=== PATIENT | female | born 1965 | race African-American/Black ===

== ENCOUNTER 2017-06-04 11:02 | Inpatient (IN) | payer MEDICARE, MEDICAID ==
[~2017-06-04] VITALS: Ht 160 cm; Wt 63.5 kg
[2017-06-04] MEDS ORDERED: HYDROmorphone 1mg/ml Carpuject IVP ONE ×2 (11:45→12:45)
[2017-06-04] MEDS ORDERED: LORazepam Inj 2mg/ml 1ml IV ONE (11:45)
[2017-06-04] MEDS ORDERED: Sodium Chloride 500ML 500 ML IV ONE (11:45)
[2017-06-04] MEDS ORDERED: DiphenhydrAMINE 50mg/ml Inj IVP ONE (11:45)
[2017-06-04] MEDS ORDERED: DILAUDID1 MG/1 ML PO (11:58)
[2017-06-04] MEDS ORDERED: TOPROL XL50 MG ORAL (11:58)
[2017-06-04] MEDS ORDERED: KLONOPIN1 MG ORAL (11:58)
[2017-06-04] MEDS ORDERED: BACLOFEN20 MG ORAL (11:58)
[2017-06-04] MEDS ORDERED: XARELTO10 MG ORAL (11:58)
[2017-06-04] MEDS ORDERED: NORVASC10 MG ORAL (11:58)
[2017-06-04] MEDS ORDERED: OMEPRAZOLE20 M2 ORAL (11:58)
[2017-06-04] MEDS ORDERED: GABAPENTIN300 MG ORAL (11:58)
[2017-06-04] MEDS ORDERED: REQUIP1 MG ORAL (11:58)
[2017-06-04] MEDS ORDERED: HYOSCYAMINE0.375 M1 ORAL (12:00)
[2017-06-04] MEDS ORDERED: KADIAN30 MG PO (12:00)
[2017-06-04] MEDS ORDERED: LOSARTAN POTASS50 MG ORAL (12:00)
[2017-06-04 12:09] VITALS: BP 129/65
[2017-06-04 13:13] VITALS: BP 137/76
--- NOTE | 2017-06-04 14:29 | Emergency Room Report ---
History of Present Illness General Chief Complaint: General Complaint Source: Patient, Medical Record Present Illness HPI 52-year-old female presents to ED for evaluation. Patient states she's having cramping pain to the right side of her body. 10 out of 10, nonradiating. No aggravating relieving factors. Denies chest pain or shortness of breath. Patient states she has history of muscle cramps after having cauda equina syndrome. Patient states she has medications at home to help but they are not working at this time. No other aggravating relieving factors. Denies any other associated symptom Allergies: Coded Allergies: METHADONE (Verified Allergy, Unknown, 06/04/17) MORPHINE (Verified Allergy, Unknown, 06/04/17) PREGABALIN (Verified Allergy, Unknown, 06/04/17) Patient History Past Medical History: none Past Surgical History: none Pertinent Family History: none Social History: Denies: smoking, alcohol use, drug use Last Menstrual Period: 1997 Now: No Immunizations: UTD Reviewed Nursing Documentation: PMH: Agreed, PSxH: Agreed Nursing Documentation-PMH Past Medical History: No History, Except For Review of Systems All Other Systems: negative except mentioned in HPI Physical Exam Vital Signs Date Time Temp Pulse Resp B/P (MAP) Pulse Ox O2 Delivery O2 Flow Rate FiO2 06/04/17 11:13 98.1 76 18 134/75 98 Room Air Sp02 EP Interpretation: reviewed, normal General Appearance: alert, GCS 15, mild distress Head: normocephalic Eyes: bilateral eye normal inspection, bilateral eye PERRL ENT: hearing grossly normal, normal pharynx, no angioedema, normal voice Neck: full range of motion, supple/symm/no masses Respiratory: chest non-tender, lungs clear, normal breath sounds, speaking full sentences Cardiovascular #1: regular rate, rhythm, no edema Gastrointestinal: normal inspection Rectal: deferred Genitourinary: no CVA tenderness Musculoskeletal: normal inspection Neurologic: alert, oriented x3, responsive, motor strength/tone normal, sensory intact, speech normal Psychiatric: anxious Skin: normal inspection Lymphatic: normal inspection Medical Decision Making Diagnostic Impression: Primary Impression: Muscle cramping Additional Impression: Intractable pain ER Course Hospital Course 52-year-old female presents to ED with muscle cramping pain. History of cauda equina Differential diagnoses include: dehydration, rhabdo, chronic pain Clinical course Patient placed on stretcher. telemetry monitor. After initial history and physical I ordered IVFs, pain meds Despite multiple rounds of analgesia patient continues to have pain and spasms. EKG - NSR, no acute ischemic changes interpreted by me Patient has port for IV Access. Labs drawn and pending Patient given pain medications but still continues to have pain and unable to walk Case discussed with and he agreed to accept the patient to his service for further care and support I feel this is a highly complex case requiring extensive working including EKG/ Rhythm strip, Xray/CT/US, Blood/urine lab work, repeat exams while in ED, and administration of strong opiates/narcotics for pain control, admission to hospital or close patient follow up. Diagnosis -mucle cramping, intractable pain Patient admitted to floor in serious condition EKG Diagnostic Results Rate: normal Rhythm: NSR ST Segments: no acute changes ASA given to the pt in ED: No Rhythm Strip Diag. Results EP Interpretation: yes Rhythm: NSR, no PVC's, no ectopy Last Vital Signs Date Time Temp Pulse Resp B/P (MAP) Pulse Ox O2 Delivery O2 Flow Rate FiO2 06/04/17 13:13 93 26 137/76 94 Room Air 06/04/17 11:13 98.1 Status: unchanged Disposition: ADMITTED INPATIENT Condition: Serious Referrals: NON PHYSICIAN (PCP) SCOTT GOMEZ M.D. Jun 04, 2017 14:29
[2017-06-04 15:33] LABS: BASOPHILS % (AUTO) 1.1 % (0.0-2.0); HEMATOCRIT 33.6 % (37.0-47.0); HEMOGLOBIN 10.7 G/DL (12.0-16.0); LYMPHOCYTES % (AUTO) 35.3 % (20.0-45.0); MEAN CORPUSCULAR VOLUME 93 FL (80-99); MONOCYTES % (AUTO) 6.9 % (1.0-10.0); NEUTROPHILS % (AUTO) 53.8 % (45.0-75.0); PLATELET COUNT 248 K/UL (150-450); RED BLOOD COUNT 3.61 M/UL (4.20-5.40); RED CELL DISTRIBUTION WIDTH 13.5 % (11.6-14.8)
[2017-06-04 15:53] LABS: ANION GAP 7 mmol/L (5-15); BLOOD UREA NITROGEN 20 mg/dL (7-18); CARBON DIOXIDE 28 MMOL/L (21-32); CHLORIDE 110 MMOL/L (98-107); CREATININE 0.6 MG/DL (0.55-1.30); POTASSIUM 3.7 MMOL/L (3.5-5.1); SODIUM 145 MMOL/L (136-145)
[2017-06-04 15:55] VITALS: BP 111/59
[2017-06-04 16:08] LABS: ALANINE AMINOTRANSFERASE 15 U/L (12-78); ALBUMIN 3.3 G/DL (3.4-5.0); ALBUMIN/GLOBULIN RATIO 0.9 (1.0-2.7); ALKALINE PHOSPHATASE 138 U/L (46-116); ASPARTATE AMINO TRANSFERASE 11 U/L (15-37); BILIRUBIN,TOTAL 0.1 MG/DL (0.2-1.0); CKMB 1.5 NG/ML (0.0-3.6); CREATINE KINASE 138 U/L (26-308)
[2017-06-04 16:30] VITALS: BP 131/83
[2017-06-04] MEDS ORDERED: Miralax 17gm pkt ORAL PRN (16:30)
[2017-06-04] MEDS ORDERED: Zolpidem 5mg tab ORAL PRN (16:30)
[2017-06-04] MEDS ORDERED: Mylanta II UD 30ml ORAL PRN (16:30)
--- NOTE | 2017-06-04 16:39 | Diagnostic Imaging Report ---
Indication: Chest pain Technique: One view of the chest Comparison: none Findings: : No focal lesions are clear. The heart size is normal. There is a right chest port catheter. There are spinal stimulator wires noted. Impression: No acute process
[2017-06-04] MEDS: DiphenhydrAMINE 50mg/ml Inj IVP PRN (19:33)
[2017-06-04] MEDS: HYDROmorphone 1mg/ml Carpuject IVP PRN (19:35)
[2017-06-04 19:53] VITALS: BP 117/82
--- NOTE | 2017-06-04 21:45 | History and Physical Report ---
DATE OF ADMISSION: 06/04/2017 TIME SEEN: 4 p.m. ATTENDING PHYSICIAN: Ernesto Magallon D.O. CONSULTANTS: 1. Adam Tom M.D. 2. Atilio Mckeon M.D. 3. Armani Singh M.D. CHIEF COMPLAINT: Severe muscle cramps and pain. BRIEF HISTORY: This is a 52-year-old female, who lives at home with history of muscle cramps and hypertension. The patient presents with muscle cramps and increasing intractable pain. The patient came to [facility], diagnosed with the above, and being admitted to the medical floor for further treatment. Currently, slightly anxious in bed, oriented x3, no acute distress. PAST MEDICAL HISTORY: Hypertension and muscle cramps. PAST SURGICAL HISTORY: Small bowel surgery, hysterectomy, right eye removal, and spinal fusion. MEDICATIONS: Soma, Dilaudid, Benadryl, IV fluid, and Ativan. ALLERGIES: Lyrica, methadone, and pregabalin. SOCIAL HISTORY: Positive smoking. Positive alcohol. No intravenous drug abuse. PHYSICAL EXAMINATION: GENERAL: Slightly anxious in bed, oriented x3, no acute distress. VITAL SIGNS: Temperature is 98 degrees, pulse 67, respirations 26, and blood pressure 111/59. CARDIOVASCULAR: No murmur. LUNGS: Distant and clear. ABDOMEN: Bowel sound positive. Nontender. Nondistended. EXTREMITIES: No cyanosis, clubbing, or edema. NEUROLOGIC: The patient moves all extremities slightly weak. LABORATORY DATA: Labs at this time show hemoglobin 10.7, otherwise CBC is normal. BMP shows chloride 110, BUN 20, and glucose 110. AST 11 and alkaline phosphatase 138. Albumin 3.3. ASSESSMENT: 1. Muscle cramps. 2. Intractable pain. 3. Anemia. 4. Hypoalbumin. 5. Hypertension. PLAN: OT/PT. Dietary followup. Blood pressure, pain control. Resume home medications. Dr. Tom, Dr. Mckeon, and Dr. Singh to consult. Ernesto Magallon D.O. DR: DARIN JOB#: [id number] CC:
[2017-06-04] MEDS: Dyna-Hex 2% Top Sol 2oz TOPIC SCH (21:46)
[2017-06-04] MEDS: LORazepam Inj 2mg/ml 1ml IV PRN (21:47)
--- NOTE | 2017-06-04 22:49 | Consultation ---
History of Present Illness General Date patient seen: Jun 05, 2017 Chief Complaint: General Complaint Reason for Consultation: inpatient management Present Illness HPI 52-year-old female with hx of anxiety and chronic haq, spams, presents to ED for evaluation of cramping pain to the right side of her body. 10 out of 10, nonradiating. No aggravating relieving factors. Denies chest pain or shortness of breath. Patient states she has history of muscle cramps after having cauda equina syndrome. She is admitted for intractable pain Allergies: Coded Allergies: METHADONE (Verified Allergy, Unknown, 06/04/17) MORPHINE (Verified Allergy, Unknown, 06/04/17) PREGABALIN (Verified Allergy, Unknown, 06/04/17) Medication History Scheduled Amlodipine Besylate (Norvasc), 10 MG ORAL DAILY, (Reported) Baclofen* (Lioresal*), 20 MG ORAL THREE TIMES A DAY, (Reported) Clonazepam* (Klonopin*), 1 MG ORAL Q6H, (Reported) Gabapentin* (Gabapentin*), 300 MG ORAL THREE TIMES A DAY, (Reported) Hyoscyamine* (Levsinex*), 0.125 MG ORAL EVERY 12 HOURS, (Reported) Losartan Potassium* (Losartan Potassium*), 50 MG ORAL DAILY, (Reported) Metoprolol Succinate* (Toprol Xl*), 50 MG ORAL DAILY, (Reported) Omeprazole (Omeprazole), 20 MG ORAL DAILY, (Reported) Rivaroxaban (Xarelto*), 20 MG ORAL DAILY, (Reported) Ropinirole Hcl* (Requip*), 1 MG ORAL THREE TIMES A DAY, (Reported) Miscellaneous Medications Hydromorphone Hcl (Dilaudid), 4 MG PO, (Reported) Morphine Sulfate (Rosanne), 30 MG PO, (Reported) Patient History Healthcare decision maker Resuscitation status Full Code Advanced Directive on File Review of Systems All Other Systems: negative except mentioned in HPI Physical Exam General Appearance: WD/WN Lines, tubes and drains: peripheral, central line HEENT: normocephalic, anicteric Neck: non-tender, normal alignment Respiratory/Chest: chest wall non-tender, lungs clear Breasts: no masses Cardiovascular/Chest: normal peripheral pulses Abdomen: normal bowel sounds, non tender Genitourinary/Rectal: normal genital exam Last 24 Hour Vital Signs Date Time Temp Pulse Resp B/P (MAP) Pulse Ox O2 Delivery O2 Flow Rate FiO2 06/04/17 19:53 98.1 78 20 117/82 99 Room Air 06/04/17 16:30 98.9 83 19 131/83 97 Room Air 06/04/17 16:20 98.1 67 9 111/59 98 Room Air 06/04/17 15:55 67 9 111/59 98 Room Air 06/04/17 13:13 93 26 137/76 94 Room Air 06/04/17 12:09 72 8 129/65 98 Room Air 06/04/17 11:13 98.1 76 18 134/75 98 Room Air Laboratory Tests Test 06/04/17 15:06 White Blood Count 6.0 K/UL (4.8-10.8) Red Blood Count 3.61 M/UL (4.20-5.40) L Hemoglobin 10.7 G/DL (12.0-16.0) L Hematocrit 33.6 % (37.0-47.0) L Mean Corpuscular Volume 93 FL (80-99) Mean Corpuscular Hemoglobin 29.5 PG (27.0-31.0) Mean Corpuscular Hemoglobin Concent 31.7 G/DL (32.0-36.0) L Red Cell Distribution Width 13.5 % (11.6-14.8) Platelet Count 248 K/UL (150-450) Mean Platelet Volume 5.5 FL (6.5-10.1) L Neutrophils (%) (Auto) 53.8 % (45.0-75.0) Lymphocytes (%) (Auto) 35.3 % (20.0-45.0) Monocytes (%) (Auto) 6.9 % (1.0-10.0) Eosinophils (%) (Auto) 3.0 % (0.0-3.0) Basophils (%) (Auto) 1.1 % (0.0-2.0) Sodium Level 145 MMOL/L (136-145) Potassium Level 3.7 MMOL/L (3.5-5.1) Chloride Level 110 MMOL/L (98-107) H Carbon Dioxide Level 28 MMOL/L (21-32) Anion Gap 7 mmol/L (5-15) Blood Urea Nitrogen 20 mg/dL (7-18) H Creatinine 0.6 MG/DL (0.55-1.30) Estimat Glomerular Filtration Rate > 60 mL/min (>60) Glucose Level 110 MG/DL (74-106) H Calcium Level 9.0 MG/DL (8.5-10.1) Total Bilirubin 0.1 MG/DL (0.2-1.0) L Aspartate Amino Transf (AST/SGOT) 11 U/L (15-37) L Alanine Aminotransferase (ALT/SGPT) 15 U/L (12-78) Alkaline Phosphatase 138 U/L (46-116) H Total Creatine Kinase 138 U/L (26-308) Creatine Kinase MB 1.5 NG/ML (0.0-3.6) Creatine Kinase MB Relative Index 1.0 Total Protein 6.8 G/DL (6.4-8.2) Albumin 3.3 G/DL (3.4-5.0) L Globulin 3.5 g/dL Albumin/Globulin Ratio 0.9 (1.0-2.7) L Height (Feet): 5 Height (Inches): 3.00 Weight (Pounds): 140 Medications Current Medications Medications (Trade) Dose Ordered Sig/Danni Route PRN Reason Start Time Stop Time Status Last Admin Dose Admin Acetaminophen (Tylenol) 650 mg Q4H PRN ORAL fever 06/04/17 16:30 07/04/17 16:29 Acetaminophen (Tylenol) 650 mg Q4H PRN ORAL Mild Pain (Pain Scale 1-3) 06/04/17 19:00 07/04/17 18:59 Al Hydroxide/Mg Hydroxide (Mylanta II) 30 ml Q6H PRN ORAL dyspepsia 06/04/17 16:30 07/04/17 16:29 Amlodipine Besylate (Norvasc) 10 mg DAILY ORAL 06/05/17 09:00 07/05/17 08:59 Baclofen (Lioresal) 20 mg THREE TIMES A DAY ORAL 06/04/17 18:00 07/04/17 17:59 06/04/17 18:37 Chlorhexidine Gluconate (Margot-Hex 2%) 1 applic Q24H TOPIC 06/04/17 20:00 07/04/17 19:59 06/04/17 21:46 Clonazepam (KlonoPIN) 1 mg Q6H ORAL 06/04/17 18:00 06/11/17 17:59 06/04/17 18:35 Dextrose (Dextrose 50%) STAT PRN IV Hypoglycemia 06/04/17 16:30 07/04/17 16:29 Diphenhydramine HCl (Benadryl) 25 mg Q6H PRN IVP Itching 06/04/17 19:00 07/04/17 18:59 06/04/17 19:33 Gabapentin (Neurontin) 300 mg THREE TIMES A DAY ORAL 06/04/17 18:00 07/04/17 17:59 06/04/17 18:35 Hydromorphone HCl (Dilaudid) 1 mg Q4H PRN IVP Severe Pain (Pain Scale 7-10) 06/04/17 19:00 06/11/17 18:59 06/04/17 19:35 Lorazepam (Ativan 2mg/ml 1ml) 0.5 mg Q4H PRN IV For Anxiety 06/04/17 16:30 06/11/17 16:29 06/04/17 21:47 Losartan Potassium (Cozaar) 50 mg DAILY ORAL 06/05/17 09:00 07/05/17 08:59 Metoprolol Succinate (Toprol XL) 50 mg DAILY ORAL 06/05/17 09:00 07/05/17 08:59 Ondansetron HCl (Zofran) 4 mg Q6H PRN IVP Nausea & Vomiting 06/04/17 16:30 07/04/17 16:29 Polyethylene Glycol (Miralax) 17 gm HSPRN PRN ORAL Constipation 06/04/17 16:30 07/04/17 16:29 Rivaroxaban (Xarelto) 20 mg DAILY ORAL 06/05/17 09:00 07/05/17 08:59 Ropinirole HCl (Requip) 1 mg THREE TIMES A DAY ORAL 06/04/17 18:00 07/04/17 17:59 06/04/17 18:35 Zolpidem Tartrate (Ambien) 5 mg HSPRN PRN ORAL Insomnia 06/04/17 16:30 06/11/17 16:29 Assessment/Plan Problem List: (1) Intractable pain ICD Codes: R52 - Pain, unspecified SNOMED: 83028790 (2) Muscle cramping ICD Codes: R25.2 - Cramp and spasm SNOMED: 40025760 Assessment/Plan neuro and psych evaluation analgesics symptomatic treatment ELLIOTT NICOLAS Jun 04, 2017 22:49
[2017-06-04 23:43] VITALS: BP 136/96
[2017-06-05] MEDS: DiphenhydrAMINE 50mg/ml Inj IVP PRN ×4 (01:20→20:51)
[2017-06-05] MEDS: HYDROmorphone 1mg/ml Carpuject IVP PRN ×5 (01:21→20:53)
[2017-06-05 03:39] VITALS: BP 133/83
[2017-06-05] MEDS: LORazepam Inj 2mg/ml 1ml IV PRN ×2 (05:00→23:21)
[2017-06-05 07:03] LABS: BASOPHILS % (AUTO) 1.2 % (0.0-2.0); EOSINOPHILS % (AUTO) 2.9 % (0.0-3.0); HEMATOCRIT 34.2 % (37.0-47.0); HEMOGLOBIN 10.9 G/DL (12.0-16.0); LYMPHOCYTES % (AUTO) 43.3 % (20.0-45.0); MEAN CORPUSCULAR VOLUME 93 FL (80-99); MONOCYTES % (AUTO) 6.3 % (1.0-10.0); NEUTROPHILS % (AUTO) 46.3 % (45.0-75.0); PLATELET COUNT 279 K/UL (150-450); RED BLOOD COUNT 3.66 M/UL (4.20-5.40); RED CELL DISTRIBUTION WIDTH 13.4 % (11.6-14.8); WHITE BLOOD COUNT 4.9 K/UL (4.8-10.8)
[2017-06-05 07:35] LABS: ALANINE AMINOTRANSFERASE 15 U/L (12-78); ALBUMIN 3.3 G/DL (3.4-5.0); ALBUMIN/GLOBULIN RATIO 0.9 (1.0-2.7); ALKALINE PHOSPHATASE 137 U/L (46-116); ANION GAP 7 mmol/L (5-15); ASPARTATE AMINO TRANSFERASE 10 U/L (15-37); BILIRUBIN,TOTAL 0.2 MG/DL (0.2-1.0); BLOOD UREA NITROGEN 15 mg/dL (7-18); CALCIUM 9.1 MG/DL (8.5-10.1); CARBON DIOXIDE 29 MMOL/L (21-32); CHLORIDE 108 MMOL/L (98-107); CHOLESTEROL 189 MG/DL (< 200); CREATININE 0.7 MG/DL (0.55-1.30); HDL CHOLESTEROL 100 MG/DL (40-60); POTASSIUM 3.7 MMOL/L (3.5-5.1); SODIUM 144 MMOL/L (136-145); TRIGLYCERIDES 81 MG/DL (30-150)
[2017-06-05 08:22] VITALS: BP 138/72
[2017-06-05] MEDS ORDERED: Ketorolac 30mg Inj IV SCH (09:00)
[2017-06-05] MEDS: Losartan 50mg tab ORAL SCH (09:05)
[2017-06-05] MEDS: Metoprolol Succinate XL 50mg tab ORAL SCH (09:06)
[2017-06-05] MEDS: Xarelto 10mg tab ORAL SCH (09:06)
--- NOTE | 2017-06-05 09:14 | Pulmonology Progress Note ---
Assessment/Plan Problems: (1) Intractable pain (2) Muscle cramping Assessment/Plan pt is allergic to all pain meds expect for Dilaudid and that to be taken with Benadry. awaiting psych and pain consult Subjective ROS Limited/Unobtainable: No Constitutional: Reports: no symptoms HEENT: Repors: no symptoms Respiratory: Reports: no symptoms Allergies: Coded Allergies: METHADONE (Verified Allergy, Unknown, 06/04/17) MORPHINE (Verified Allergy, Unknown, 06/04/17) PREGABALIN (Verified Allergy, Unknown, 06/04/17) Objective Last 24 Hour Vital Signs Date Time Temp Pulse Resp B/P (MAP) Pulse Ox O2 Delivery O2 Flow Rate FiO2 06/05/17 09:06 73 138/72 06/05/17 09:06 73 138/72 06/05/17 09:05 138/72 06/05/17 08:22 98.1 73 19 138/72 99 06/05/17 03:39 97.7 54 20 133/83 100 Room Air 06/04/17 23:43 97.7 65 20 136/96 100 Room Air 06/04/17 19:53 98.1 78 20 117/82 99 Room Air 06/04/17 19:45 97.7 06/04/17 16:30 98.9 83 19 131/83 97 Room Air 06/04/17 16:20 98.1 67 9 111/59 98 Room Air 06/04/17 15:55 67 9 111/59 98 Room Air 06/04/17 13:13 93 26 137/76 94 Room Air 06/04/17 12:09 72 8 129/65 98 Room Air 06/04/17 11:13 98.1 76 18 134/75 98 Room Air Intake and Output 06/04/17 06/05/17 19:00 07:00 Intake Total 0 ml Balance 0 ml Intake Oral 0 ml # Voids 1 General Appearance: WD/WN HEENT: normocephalic, anicteric Respiratory/Chest: chest wall non-tender, lungs clear Breasts: no masses Cardiovascular: normal peripheral pulses Abdomen: normal bowel sounds, no organomegaly Genitourinary: normal external genitalia Extremities: no clubbing 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, no motor/sensory deficits Laboratory Tests 06/04/17 15:06: White Blood Count 6.0, Red Blood Count 3.61L, Hemoglobin 10.7L, Hematocrit 33.6L , Mean Corpuscular Volume 93, Mean Corpuscular Hemoglobin 29.5, Mean Corpuscular Hemoglobin Concent 31.7L, Red Cell Distribution Width 13.5, Platelet Count 248, Mean Platelet Volume 5.5L, Neutrophils (%) (Auto) 53.8, Lymphocytes (%) (Auto) 35.3, Monocytes (%) (Auto) 6.9, Eosinophils (%) (Auto) 3.0, Basophils (%) (Auto) 1.1, Sodium Level 145, Potassium Level 3.7, Chloride Level 110H, Carbon Dioxide Level 28, Anion Gap 7, Blood Urea Nitrogen 20H, Creatinine 0.6, Estimat Glomerular Filtration Rate > 60, Glucose Level 110H, Calcium Level 9.0, Total Bilirubin 0.1L, Aspartate Amino Transf (AST/SGOT) 11L, Alanine Aminotransferase (ALT/SGPT) 15, Alkaline Phosphatase 138H, Total Creatine Kinase 138, Creatine Kinase MB 1.5, Creatine Kinase MB Relative Index 1.0, Total Protein 6.8, Albumin 3.3L, Globulin 3.5, Albumin/Globulin Ratio 0.9L 06/05/17 05:00: White Blood Count 4.9, Red Blood Count 3.66L, Hemoglobin 10.9L, Hematocrit 34.2L , Mean Corpuscular Volume 93, Mean Corpuscular Hemoglobin 29.7, Mean Corpuscular Hemoglobin Concent 31.8L, Red Cell Distribution Width 13.4, Platelet Count 279, Mean Platelet Volume 5.8L, Neutrophils (%) (Auto) 46.3, Lymphocytes (%) (Auto) 43.3, Monocytes (%) (Auto) 6.3, Eosinophils (%) (Auto) 2.9, Basophils (%) (Auto) 1.2, Sodium Level 144, Potassium Level 3.7, Chloride Level 108H, Carbon Dioxide Level 29, Anion Gap 7, Blood Urea Nitrogen 15, Creatinine 0.7, Estimat Glomerular Filtration Rate > 60, Glucose Level 99, Calcium Level 9.1, Total Bilirubin 0.2, Aspartate Amino Transf (AST/SGOT) 10L, Alanine Aminotransferase (ALT/SGPT) 15, Alkaline Phosphatase 137H, Total Protein 6.8, Albumin 3.3L, Globulin 3.5, Albumin/Globulin Ratio 0.9L, Triglycerides Level 81, Cholesterol Level 189, LDL Cholesterol 77, HDL Cholesterol 100H, Cholesterol/HDL Ratio 1.9L, Thyroid Stimulating Hormone (TSH) 2.183 Current Medications Medications (Trade) Dose Ordered Sig/Danni Route PRN Reason Start Time Stop Time Status Last Admin Dose Admin Acetaminophen (Tylenol) 650 mg Q4H PRN ORAL fever 06/04/17 16:30 07/04/17 16:29 Acetaminophen (Tylenol) 650 mg Q4H PRN ORAL Mild Pain (Pain Scale 1-3) 06/04/17 19:00 07/04/17 18:59 Al Hydroxide/Mg Hydroxide (Mylanta II) 30 ml Q6H PRN ORAL dyspepsia 06/04/17 16:30 07/04/17 16:29 Amlodipine Besylate (Norvasc) 10 mg DAILY ORAL 06/05/17 09:00 07/05/17 08:59 06/05/17 09:06 Baclofen (Lioresal) 20 mg THREE TIMES A DAY ORAL 06/04/17 18:00 07/04/17 17:59 06/04/17 18:37 Chlorhexidine Gluconate (Margot-Hex 2%) 1 applic Q24H TOPIC 06/04/17 20:00 07/04/17 19:59 06/04/17 21:46 Clonazepam (KlonoPIN) 1 mg Q6H ORAL 06/04/17 18:00 06/11/17 17:59 06/04/17 18:35 Dextrose (Dextrose 50%) STAT PRN IV Hypoglycemia 06/04/17 16:30 07/04/17 16:29 Diphenhydramine HCl (Benadryl) 25 mg EVERY 4 HOURS PRN IVP Itching 06/05/17 10:00 07/04/17 09:59 Gabapentin (Neurontin) 300 mg THREE TIMES A DAY ORAL 06/04/17 18:00 07/04/17 17:59 06/05/17 09:05 Hydromorphone HCl (Dilaudid) 1 mg Q4H PRN IVP Severe Pain (Pain Scale 7-10) 06/04/17 19:00 06/11/17 18:59 06/05/17 05:27 Ketorolac Tromethamine (Toradol 30mg) 15 mg Q6H PRN IV Moderate Pain (Pain Scale 4-6) 06/05/17 10:00 06/10/17 09:59 Lorazepam (Ativan 2mg/ml 1ml) 0.5 mg Q4H PRN IV For Anxiety 06/04/17 16:30 06/11/17 16:29 06/05/17 05:00 Losartan Potassium (Cozaar) 50 mg DAILY ORAL 06/05/17 09:00 07/05/17 08:59 06/05/17 09:05 Metoprolol Succinate (Toprol XL) 50 mg DAILY ORAL 06/05/17 09:00 07/05/17 08:59 06/05/17 09:06 Ondansetron HCl (Zofran) 4 mg Q6H PRN IVP Nausea & Vomiting 06/04/17 16:30 07/04/17 16:29 Polyethylene Glycol (Miralax) 17 gm HSPRN PRN ORAL Constipation 06/04/17 16:30 07/04/17 16:29 Rivaroxaban (Xarelto) 20 mg DAILY ORAL 06/05/17 09:00 07/05/17 08:59 06/05/17 09:06 Ropinirole HCl (Requip) 1 mg THREE TIMES A DAY ORAL 06/04/17 18:00 07/04/17 17:59 06/05/17 09:05 Zolpidem Tartrate (Ambien) 5 mg HSPRN PRN ORAL Insomnia 06/04/17 16:30 06/11/17 16:29 ELLIOTT NICOLAS Jun 05, 2017 09:14
--- NOTE | 2017-06-05 09:25 | General Progress Note ---
Assessment/Plan Problem List: (1) HTN (hypertension) ICD Codes: I10 - Essential (primary) hypertension SNOMED: 49833118 (2) Anemia ICD Codes: D64.9 - Anemia, unspecified SNOMED: 866051308 (3) Hypoalbuminemia ICD Codes: E88.09 - Other disorders of plasma-protein metabolism, not elsewhere classified SNOMED: 351574997 (4) Muscle cramping ICD Codes: R25.2 - Cramp and spasm SNOMED: 25109079 (5) Intractable pain ICD Codes: R52 - Pain, unspecified SNOMED: 89638022 Status: unchanged Assessment/Plan ot pt diet pain control neuro pain f/u cbc bmp am Subjective Constitutional: Reports: weakness Allergies: Coded Allergies: METHADONE (Verified Allergy, Unknown, 06/04/17) MORPHINE (Verified Allergy, Unknown, 06/04/17) PREGABALIN (Verified Allergy, Unknown, 06/04/17) All Systems: reviewed and negative except above Subjective c/o of leg cramps Objective Last 24 Hour Vital Signs Date Time Temp Pulse Resp B/P (MAP) Pulse Ox O2 Delivery O2 Flow Rate FiO2 06/05/17 09:06 73 138/72 06/05/17 09:06 73 138/72 06/05/17 09:05 138/72 06/05/17 08:22 98.1 73 19 138/72 99 06/05/17 03:39 97.7 54 20 133/83 100 Room Air 06/04/17 23:43 97.7 65 20 136/96 100 Room Air 06/04/17 19:53 98.1 78 20 117/82 99 Room Air 06/04/17 19:45 97.7 06/04/17 16:30 98.9 83 19 131/83 97 Room Air 06/04/17 16:20 98.1 67 9 111/59 98 Room Air 06/04/17 15:55 67 9 111/59 98 Room Air 06/04/17 13:13 93 26 137/76 94 Room Air 06/04/17 12:09 72 8 129/65 98 Room Air 06/04/17 11:13 98.1 76 18 134/75 98 Room Air Intake and Output 06/04/17 06/05/17 19:00 07:00 Intake Total 0 ml Balance 0 ml Intake Oral 0 ml # Voids 1 Laboratory Tests 06/04/17 15:06: White Blood Count 6.0, Red Blood Count 3.61L, Hemoglobin 10.7L, Hematocrit 33.6L , Mean Corpuscular Volume 93, Mean Corpuscular Hemoglobin 29.5, Mean Corpuscular Hemoglobin Concent 31.7L, Red Cell Distribution Width 13.5, Platelet Count 248, Mean Platelet Volume 5.5L, Neutrophils (%) (Auto) 53.8, Lymphocytes (%) (Auto) 35.3, Monocytes (%) (Auto) 6.9, Eosinophils (%) (Auto) 3.0, Basophils (%) (Auto) 1.1, Sodium Level 145, Potassium Level 3.7, Chloride Level 110H, Carbon Dioxide Level 28, Anion Gap 7, Blood Urea Nitrogen 20H, Creatinine 0.6, Estimat Glomerular Filtration Rate > 60, Glucose Level 110H, Calcium Level 9.0, Total Bilirubin 0.1L, Aspartate Amino Transf (AST/SGOT) 11L, Alanine Aminotransferase (ALT/SGPT) 15, Alkaline Phosphatase 138H, Total Creatine Kinase 138, Creatine Kinase MB 1.5, Creatine Kinase MB Relative Index 1.0, Total Protein 6.8, Albumin 3.3L, Globulin 3.5, Albumin/Globulin Ratio 0.9L 06/05/17 05:00: White Blood Count 4.9, Red Blood Count 3.66L, Hemoglobin 10.9L, Hematocrit 34.2L , Mean Corpuscular Volume 93, Mean Corpuscular Hemoglobin 29.7, Mean Corpuscular Hemoglobin Concent 31.8L, Red Cell Distribution Width 13.4, Platelet Count 279, Mean Platelet Volume 5.8L, Neutrophils (%) (Auto) 46.3, Lymphocytes (%) (Auto) 43.3, Monocytes (%) (Auto) 6.3, Eosinophils (%) (Auto) 2.9, Basophils (%) (Auto) 1.2, Sodium Level 144, Potassium Level 3.7, Chloride Level 108H, Carbon Dioxide Level 29, Anion Gap 7, Blood Urea Nitrogen 15, Creatinine 0.7, Estimat Glomerular Filtration Rate > 60, Glucose Level 99, Calcium Level 9.1, Total Bilirubin 0.2, Aspartate Amino Transf (AST/SGOT) 10L, Alanine Aminotransferase (ALT/SGPT) 15, Alkaline Phosphatase 137H, Total Protein 6.8, Albumin 3.3L, Globulin 3.5, Albumin/Globulin Ratio 0.9L, Triglycerides Level 81, Cholesterol Level 189, LDL Cholesterol 77, HDL Cholesterol 100H, Cholesterol/HDL Ratio 1.9L, Thyroid Stimulating Hormone (TSH) 2.183 Height (Feet): 5 Height (Inches): 3.00 Weight (Pounds): 140 General Appearance: alert EENT: normal ENT inspection Neck: normal alignment Cardiovascular: normal peripheral pulses, normal rate, regular rhythm Respiratory/Chest: chest wall non-tender, lungs clear, normal breath sounds Abdomen: normal bowel sounds, non tender, soft Extremities: normal inspection Edema: no edema noted Arm (L), no edema noted Arm (R), no edema noted Leg (L), no edema noted Leg (R), no edema noted Pedal (L), no edema noted Pedal (R), no edema noted Generalized Neurologic: responsive, motor weakness Skin: normal pigmentation, warm/dry JUAN FRANCISCO OCAMPO Jun 05, 2017 09:25
[2017-06-05] MEDS ORDERED: DiphenhydrAMINE 50mg/ml Inj IVP PRN (10:00)
[2017-06-05] MEDS ORDERED: Ketorolac 30mg Inj IV PRN (10:00)
[2017-06-05 12:00] VITALS: BP 124/83
[2017-06-05 16:25] VITALS: BP 109/77
[2017-06-05 20:00] VITALS: BP 112/62
[2017-06-06] VITALS: BP 125/65
[2017-06-06] MEDS: Dyna-Hex 2% Top Sol 2oz TOPIC SCH ×2 (00:03→20:00)
[2017-06-06] MEDS: DiphenhydrAMINE 50mg/ml Inj IVP PRN ×6 (00:04→20:13)
[2017-06-06] MEDS: HYDROmorphone 1mg/ml Carpuject IVP PRN ×6 (00:04→20:13)
--- NOTE | 2017-06-06 00:32 | Consultation ---
DATE OF CONSULTATION: 06/05/2017 NEUROLOGICAL CONSULTATION CONSULTING PHYSICIAN: Atilio Mckeon M.D. REQUESTING PHYSICIAN: Ernesto Magallon D.O. HISTORY OF PRESENT ILLNESS: This is a 52-year-old lady seen in neurological consultation to evaluate intractable pain and spasms. The patient was brought to emergency room complaining of cramping pain in the right side of the body, predominantly from her right foot up to the right hip, which in her opinion was 10/10, nonradiating. There were no associated symptoms. No chest pain. No shortness of breath. Her vital signs on admission were stable. She was afebrile Her imaging studies included chest x-ray, no acute process noted. Lab work included CBC study with mild anemia, hemoglobin 10.7, hematocrit 33.6. Chemistry panel with BUN of 20. Normal lipid panel and TSH. Elevated alkaline phosphatase 138. Since admission to present, there was no further changes in her condition and neurology consult was requested. The patient informed me that about 10 years ago, she developed severe low back pain radiating to right lower extremity. She was treated for a couple of years with Vicodin and Soma. She underwent L4-L5 fusion surgery in 2009. During surgery, apparently "small piece of bone" was detached and so surgeon had to reopen and remove piece of bone from the surgical site. The patient was subsequently diagnosed with lumbar spine arachnoiditis. She continued to have severe cramping pain, this was addressed with presence of cauda equina syndrome. The patient also noticed right footdrop with some weakness in left foot, weakness in the right lower extremity affecting her ambulation. Due to continued severe pain in the right lower extremity, she continued to use Vicodin, Soma, subsequently placed on morphine, gabapentin, and Klonopin. 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 She remained on anticoagulation since then. The patient was tried on different antidepressants including Zoloft and Cymbalta, felt no improvement. Lumbar spine stimulator was placed which removed significant amount of pain and unexpected right lower extremity weakness during ambulation. In the last few years, she continued to have severe muscle spasm affecting right leg, right hip, and right lower back. CURRENT MEDICATIONS: Treatment prior to admission included baclofen 20 mg t.i.d., which in the patient's opinion produced no improvement. She is on gabapentin 300 mg t.i.d., the patient commented that higher dose was causing decrease in the vision in her left eye. She is on Dilaudid 4 mg p.o., morphine sulfate 30 mg, omeprazole, ropinirole 1 mg t.i.d. Her Soma was replaced recently although the patient noticed that Soma actually helped better than baclofen. Vicodin, uses from 3-5 tablets per day. PAST MEDICAL HISTORY: Hypertension, DVT with right eye removal, history of "lumbar spine arachnoiditis" and cauda equina syndrome. MEDICATIONS: This was treated with amlodipine, Xarelto, metoprolol, losartan. ALLERGIES: Methadone, pregabalin, poorly tolerated Zoloft. FAMILY HISTORY: Noncontributory. SOCIAL HISTORY: She is . Her was present during this examination. Chief complaint, she complains of exacerbation of severe spasmodic pain, right calf, right hip, right lower back, numbness in her right foot, weakness in her right lower extremity, numbness in her left foot dorsiflexion, intermittent tremors, "shaking" of upper torso and upper extremity usually 2-3 hours following the use of medications. This was noted initially about a year ago but progressing now. Difficulty ambulation due to buckling of right lower extremity. Generalized aches and pains including upper back and mid back. PHYSICAL EXAMINATION: GENERAL: This is a well-developed and well-nourished female, not in acute distress, but quite anxious and tense concerning with exacerbation of pain. HEENT: Head normocephalic. No evidence of trauma except right eye prosthesis. MUSCULOSKELETAL: Remarkable for diffuse tenderness on palpation in the cervical and midthoracic region. Significant tenderness in the lumbar region, but predominantly right paraspinal area. There is significant postoperative scarring. Lumbar spine with a spinal stimulator in place. There is tenderness on palpation in both hips, both calves, but predominantly on the right. Peripheral pulses 1+, symmetric. MENTAL STATUS: She is fully alert and oriented x3 with no evidence of aphasia or apraxia. Cognitive function normal. Emotionally labile. CRANIAL NERVE II: On the left, 3 mm, responding to light and accommodation. Extraocular movement full range. CRANIAL NERVE V: Normal corneal responses. CRANIAL NERVE VII: No facial asymmetry. CRANIAL NERVE VIII: Normal hearing. CRANIAL NERVES IX THROUGH XII: Within normal limits. MOTOR EXAMINATION: Revealed resting and action tremor of the right upper extremity. There is weakness 3/5, right lower extremity with right footdrop. There is weakness in the left foot dorsiflexion, 3/5. Strength in left lower extremity 5-/5. Normal strength 5/5 in both upper extremities. Normal muscle tone. Deep tendon reflexes 1+ both biceps, triceps, brachioradialis. Absent both knee and ankle jerks. Plantar responses flexor. SENSORY EXAMINATION: Decreased response to pin stimulation below knees bilaterally. GAIT: Not tested but reported able to ambulate with assistance, however, it is limping to the right. IMPRESSION: 1. Chronic pain syndrome, opiate dependent. 2. Intermittent generalized tremor, probably drug-induced toxicity. 3. Right upper extremity tremor resembling essential tremor. 4. Status post lumbar spine fusion with postoperative arachnoiditis/cauda equina syndrome with bilateral paraparesis, but predominantly right lower extremity. 5. Hypertension. 6. Anxiety and depression. RECOMMENDATION: 1. Hold all unessential to reduce toxic effects of treatment. We will take off Requip, restart on Soma 350 mg t.i.d., reduce baclofen down to 10 mg t.i.d. (eventually to be discontinued). 2. Start on Lexapro 10 mg daily. 3. Opiate management as per pain team. Thank you for allowing me to see this interesting patient in neurological consultation. Atilio Mckeon M.D. DR: Zeenat JOB#: [id number] CC:
[2017-06-06 04:00] VITALS: BP 119/67
[2017-06-06 07:25] LABS: BASOPHILS % (AUTO) 1.4 % (0.0-2.0); EOSINOPHILS % (AUTO) 3.5 % (0.0-3.0); HEMATOCRIT 33.7 % (37.0-47.0); HEMOGLOBIN 10.5 G/DL (12.0-16.0); LYMPHOCYTES % (AUTO) 26.1 % (20.0-45.0); MEAN CORPUSCULAR VOLUME 94 FL (80-99); MONOCYTES % (AUTO) 8.3 % (1.0-10.0); NEUTROPHILS % (AUTO) 60.7 % (45.0-75.0); PLATELET COUNT 263 K/UL (150-450); RED BLOOD COUNT 3.58 M/UL (4.20-5.40); RED CELL DISTRIBUTION WIDTH 13.7 % (11.6-14.8); WHITE BLOOD COUNT 6.2 K/UL (4.8-10.8)
[2017-06-06 07:31] LABS: ANION GAP 8 mmol/L (5-15); BLOOD UREA NITROGEN 21 mg/dL (7-18); CALCIUM 9.1 MG/DL (8.5-10.1); CARBON DIOXIDE 29 MMOL/L (21-32); CHLORIDE 110 MMOL/L (98-107); CREATININE 0.7 MG/DL (0.55-1.30); POTASSIUM 3.8 MMOL/L (3.5-5.1); SODIUM 146 MMOL/L (136-145)
--- NOTE | 2017-06-06 07:50 | General Progress Note ---
Assessment/Plan Problem List: (1) HTN (hypertension) ICD Codes: I10 - Essential (primary) hypertension SNOMED: 55156948 (2) Anemia ICD Codes: D64.9 - Anemia, unspecified SNOMED: 283315998 (3) Hypoalbuminemia ICD Codes: E88.09 - Other disorders of plasma-protein metabolism, not elsewhere classified SNOMED: 666231754 (4) Muscle cramping ICD Codes: R25.2 - Cramp and spasm SNOMED: 73334669 (5) Intractable pain ICD Codes: R52 - Pain, unspecified SNOMED: 26618477 Status: unchanged Assessment/Plan ot pt diet pain control neuro pain f/u cbc bmp am Subjective Constitutional: Reports: weakness Allergies: Coded Allergies: METHADONE (Verified Allergy, Unknown, 06/04/17) MORPHINE (Verified Allergy, Unknown, 06/04/17) PREGABALIN (Verified Allergy, Unknown, 06/04/17) All Systems: reviewed and negative except above Subjective c/o of leg cramps Objective Last 24 Hour Vital Signs Date Time Temp Pulse Resp B/P (MAP) Pulse Ox O2 Delivery O2 Flow Rate FiO2 06/06/17 04:00 97.7 65 20 119/67 96 Room Air 06/06/17 00:00 97.9 63 18 125/65 92 Room Air 06/05/17 20:00 97.5 61 20 112/62 98 Room Air 06/05/17 16:25 98.1 77 20 109/77 97 06/05/17 12:00 98.3 78 20 124/83 97 06/05/17 09:06 73 138/72 06/05/17 09:06 73 138/72 06/05/17 09:05 138/72 06/05/17 08:22 98.1 73 19 138/72 99 Intake and Output 06/05/17 06/06/17 19:00 07:00 Intake Total 820 ml Balance 820 ml Intake Oral 820 ml Laboratory Tests 06/06/17 06:00: White Blood Count 6.2, Red Blood Count 3.58L, Hemoglobin 10.5L, Hematocrit 33.7L , Mean Corpuscular Volume 94, Mean Corpuscular Hemoglobin 29.4, Mean Corpuscular Hemoglobin Concent 31.2L, Red Cell Distribution Width 13.7, Platelet Count 263, Mean Platelet Volume 5.2L, Neutrophils (%) (Auto) 60.7, Lymphocytes (%) (Auto) 26.1, Monocytes (%) (Auto) 8.3, Eosinophils (%) (Auto) 3.5H, Basophils (%) (Auto) 1.4, Sodium Level 146H, Potassium Level 3.8, Chloride Level 110H, Carbon Dioxide Level 29, Anion Gap 8, Blood Urea Nitrogen 21H, Creatinine 0.7, Estimat Glomerular Filtration Rate > 60, Glucose Level 106 , Calcium Level 9.1 Height (Feet): 5 Height (Inches): 3.00 Weight (Pounds): 140 General Appearance: alert EENT: normal ENT inspection Neck: normal alignment Cardiovascular: normal peripheral pulses, normal rate, regular rhythm Respiratory/Chest: chest wall non-tender, lungs clear, normal breath sounds Abdomen: normal bowel sounds, non tender, soft Extremities: normal inspection Edema: no edema noted Arm (L), no edema noted Arm (R), no edema noted Leg (L), no edema noted Leg (R), no edema noted Pedal (L), no edema noted Pedal (R), no edema noted Generalized Neurologic: responsive, motor weakness Skin: normal pigmentation, warm/dry JUAN FRANCISCO OCAMPO Jun 06, 2017 07:50
[2017-06-06 08:15] VITALS: BP 160/87
[2017-06-06] MEDS: Metoprolol Succinate XL 50mg tab ORAL SCH (10:31)
[2017-06-06] MEDS: Losartan 50mg tab ORAL SCH (10:31)
[2017-06-06] MEDS: Xarelto 10mg tab ORAL SCH (10:32)
--- NOTE | 2017-06-06 11:45 | Pulmonology Progress Note ---
Assessment/Plan Problems: (1) Intractable pain (2) Muscle cramping Assessment/Plan pt is allergic to all pain meds expect for Dilaudid and that to be taken with [place]. awaiting psych and pain consult Subjective Allergies: Coded Allergies: METHADONE (Verified Allergy, Unknown, 06/04/17) MORPHINE (Verified Allergy, Unknown, 06/04/17) PREGABALIN (Verified Allergy, Unknown, 06/04/17) Objective Last 24 Hour Vital Signs Date Time Temp Pulse Resp B/P (MAP) Pulse Ox O2 Delivery O2 Flow Rate FiO2 06/06/17 10:31 80 160/87 06/06/17 10:31 160/87 06/06/17 10:31 80 160/87 06/06/17 08:15 97.9 80 18 160/87 96 Room Air 06/06/17 04:00 97.7 65 20 119/67 96 Room Air 06/06/17 00:00 97.9 63 18 125/65 92 Room Air 06/05/17 20:00 97.5 61 20 112/62 98 Room Air 06/05/17 16:25 98.1 77 20 109/77 97 06/05/17 12:00 98.3 78 20 124/83 97 Intake and Output 06/05/17 06/06/17 19:00 07:00 Intake Total 820 ml Balance 820 ml Intake Oral 820 ml Laboratory Tests 06/06/17 06:00: White Blood Count 6.2, Red Blood Count 3.58L, Hemoglobin 10.5L, Hematocrit 33.7L , Mean Corpuscular Volume 94, Mean Corpuscular Hemoglobin 29.4, Mean Corpuscular Hemoglobin Concent 31.2L, Red Cell Distribution Width 13.7, Platelet Count 263, Mean Platelet Volume 5.2L, Neutrophils (%) (Auto) 60.7, Lymphocytes (%) (Auto) 26.1, Monocytes (%) (Auto) 8.3, Eosinophils (%) (Auto) 3.5H, Basophils (%) (Auto) 1.4, Sodium Level 146H, Potassium Level 3.8, Chloride Level 110H, Carbon Dioxide Level 29, Anion Gap 8, Blood Urea Nitrogen 21H, Creatinine 0.7, Estimat Glomerular Filtration Rate > 60, Glucose Level 106 , Calcium Level 9.1 Current Medications Medications (Trade) Dose Ordered Sig/Danni Route PRN Reason Start Time Stop Time Status Last Admin Dose Admin Acetaminophen (Tylenol) 650 mg Q4H PRN ORAL fever 06/04/17 16:30 07/04/17 16:29 Acetaminophen (Tylenol) 650 mg Q4H PRN ORAL Mild Pain (Pain Scale 1-3) 06/04/17 19:00 07/04/17 18:59 Al Hydroxide/Mg Hydroxide (Mylanta II) 30 ml Q6H PRN ORAL dyspepsia 06/04/17 16:30 07/04/17 16:29 Amlodipine Besylate (Norvasc) 10 mg DAILY ORAL 06/05/17 09:00 07/05/17 08:59 06/06/17 10:31 Baclofen (Lioresal) 10 mg THREE TIMES A DAY ORAL 06/05/17 13:30 07/05/17 13:29 06/06/17 10:32 Carisoprodol (Soma) 350 mg THREE TIMES A DAY ORAL 06/05/17 13:30 07/05/17 13:29 06/06/17 10:31 Chlorhexidine Gluconate (Margot-Hex 2%) 1 applic Q24H TOPIC 06/04/17 20:00 07/04/17 19:59 06/06/17 00:03 Clonazepam (KlonoPIN) 1 mg Q6H ORAL 06/04/17 18:00 06/11/17 17:59 06/06/17 06:13 Dextrose (Dextrose 50%) STAT PRN IV Hypoglycemia 06/04/17 16:30 07/04/17 16:29 Diphenhydramine HCl (Benadryl) 25 mg Q3H PRN IVP Itching 06/05/17 15:15 07/05/17 15:14 06/06/17 10:32 Escitalopram Oxalate (Lexapro) 10 mg DAILY ORAL 06/05/17 13:30 07/05/17 13:29 06/06/17 10:32 Gabapentin (Neurontin) 300 mg THREE TIMES A DAY ORAL 06/04/17 18:00 07/04/17 17:59 06/06/17 10:31 Hydromorphone HCl (Dilaudid) 1 mg Q3H PRN IVP PAIN 4-10 06/05/17 15:15 06/12/17 15:14 06/06/17 10:30 Ketorolac Tromethamine (Toradol 30mg) 15 mg Q6H PRN IV Moderate Pain (Pain Scale 4-6) 06/05/17 10:00 06/10/17 09:59 Lorazepam (Ativan 2mg/ml 1ml) 0.5 mg Q4H PRN IV For Anxiety 06/04/17 16:30 06/11/17 16:29 06/05/17 23:21 Losartan Potassium (Cozaar) 50 mg DAILY ORAL 06/05/17 09:00 07/05/17 08:59 06/06/17 10:31 Metoprolol Succinate (Toprol XL) 50 mg DAILY ORAL 06/05/17 09:00 07/05/17 08:59 06/06/17 10:31 Ondansetron HCl (Zofran) 4 mg Q6H PRN IVP Nausea & Vomiting 06/04/17 16:30 07/04/17 16:29 Polyethylene Glycol (Miralax) 17 gm HSPRN PRN ORAL Constipation 06/04/17 16:30 07/04/17 16:29 Rivaroxaban (Xarelto) 20 mg DAILY ORAL 06/05/17 09:00 07/05/17 08:59 06/06/17 10:32 Zolpidem Tartrate (Ambien) 5 mg HSPRN PRN ORAL Insomnia 06/04/17 16:30 06/11/17 16:29 ELLIOTT NICOLAS Jun 06, 2017 11:45
[2017-06-06 12:10] VITALS: BP 144/85
--- NOTE | 2017-06-06 14:29 | Consultation ---
History of Present Illness General Date patient seen: Jun 06, 2017 Present Illness Allergies: Coded Allergies: METHADONE (Verified Allergy, Unknown, 06/04/17) MORPHINE (Verified Allergy, Unknown, 06/04/17) PREGABALIN (Verified Allergy, Unknown, 06/04/17) Medication History Scheduled Amlodipine Besylate (Norvasc), 10 MG ORAL DAILY, (Reported) Baclofen* (Lioresal*), 20 MG ORAL THREE TIMES A DAY, (Reported) Clonazepam* (Klonopin*), 1 MG ORAL Q6H, (Reported) Gabapentin* (Gabapentin*), 300 MG ORAL THREE TIMES A DAY, (Reported) Hyoscyamine* (Levsinex*), 0.125 MG ORAL EVERY 12 HOURS, (Reported) Losartan Potassium* (Losartan Potassium*), 50 MG ORAL DAILY, (Reported) Metoprolol Succinate* (Toprol Xl*), 50 MG ORAL DAILY, (Reported) Omeprazole (Omeprazole), 20 MG ORAL DAILY, (Reported) Rivaroxaban (Xarelto*), 20 MG ORAL DAILY, (Reported) Ropinirole Hcl* (Requip*), 1 MG ORAL THREE TIMES A DAY, (Reported) Miscellaneous Medications Hydromorphone Hcl (Dilaudid), 4 MG PO, (Reported) Morphine Sulfate (Rosanne), 30 MG PO, (Reported) Patient History Healthcare decision maker Resuscitation status Full Code Advanced Directive on File Physical Exam Last 24 Hour Vital Signs Date Time Temp Pulse Resp B/P (MAP) Pulse Ox O2 Delivery O2 Flow Rate FiO2 06/06/17 12:10 97.5 79 18 144/85 100 Room Air 06/06/17 11:00 97.5 06/06/17 11:00 97.5 06/06/17 10:31 80 160/87 06/06/17 10:31 160/87 06/06/17 10:31 80 160/87 06/06/17 08:15 97.9 80 18 160/87 96 Room Air 06/06/17 04:00 97.7 65 20 119/67 96 Room Air 06/06/17 00:00 97.9 63 18 125/65 92 Room Air 06/05/17 20:00 97.5 61 20 112/62 98 Room Air 06/05/17 16:25 98.1 77 20 109/77 97 Intake and Output 06/05/17 06/06/17 19:00 07:00 Intake Total 820 ml Balance 820 ml Intake Oral 820 ml Laboratory Tests Test 06/06/17 06:00 White Blood Count 6.2 K/UL (4.8-10.8) Red Blood Count 3.58 M/UL (4.20-5.40) L Hemoglobin 10.5 G/DL (12.0-16.0) L Hematocrit 33.7 % (37.0-47.0) L Mean Corpuscular Volume 94 FL (80-99) Mean Corpuscular Hemoglobin 29.4 PG (27.0-31.0) Mean Corpuscular Hemoglobin Concent 31.2 G/DL (32.0-36.0) L Red Cell Distribution Width 13.7 % (11.6-14.8) Platelet Count 263 K/UL (150-450) Mean Platelet Volume 5.2 FL (6.5-10.1) L Neutrophils (%) (Auto) 60.7 % (45.0-75.0) Lymphocytes (%) (Auto) 26.1 % (20.0-45.0) Monocytes (%) (Auto) 8.3 % (1.0-10.0) Eosinophils (%) (Auto) 3.5 % (0.0-3.0) H Basophils (%) (Auto) 1.4 % (0.0-2.0) Sodium Level 146 MMOL/L (136-145) H Potassium Level 3.8 MMOL/L (3.5-5.1) Chloride Level 110 MMOL/L (98-107) H Carbon Dioxide Level 29 MMOL/L (21-32) Anion Gap 8 mmol/L (5-15) Blood Urea Nitrogen 21 mg/dL (7-18) H Creatinine 0.7 MG/DL (0.55-1.30) Estimat Glomerular Filtration Rate > 60 mL/min (>60) Glucose Level 106 MG/DL (74-106) Calcium Level 9.1 MG/DL (8.5-10.1) Height (Feet): 5 Height (Inches): 3.00 Weight (Pounds): 140 Medications Current Medications Medications (Trade) Dose Ordered Sig/Danni Route PRN Reason Start Time Stop Time Status Last Admin Dose Admin Acetaminophen (Tylenol) 650 mg Q4H PRN ORAL fever 06/04/17 16:30 07/04/17 16:29 Acetaminophen (Tylenol) 650 mg Q4H PRN ORAL Mild Pain (Pain Scale 1-3) 06/04/17 19:00 07/04/17 18:59 Al Hydroxide/Mg Hydroxide (Mylanta II) 30 ml Q6H PRN ORAL dyspepsia 06/04/17 16:30 07/04/17 16:29 Amlodipine Besylate (Norvasc) 10 mg DAILY ORAL 06/05/17 09:00 07/05/17 08:59 06/06/17 10:31 Baclofen (Lioresal) 10 mg THREE TIMES A DAY ORAL 06/05/17 13:30 07/05/17 13:29 06/06/17 12:21 Carisoprodol (Soma) 350 mg THREE TIMES A DAY ORAL 06/05/17 13:30 07/05/17 13:29 06/06/17 12:21 Chlorhexidine Gluconate (Margot-Hex 2%) 1 applic Q24H TOPIC 06/04/17 20:00 07/04/17 19:59 06/06/17 00:03 Clonazepam (KlonoPIN) 1 mg Q6H ORAL 06/04/17 18:00 06/11/17 17:59 06/06/17 12:21 Dextrose (Dextrose 50%) STAT PRN IV Hypoglycemia 06/04/17 16:30 07/04/17 16:29 Diphenhydramine HCl (Benadryl) 25 mg Q3H PRN IVP Itching 06/05/17 15:15 07/05/17 15:14 06/06/17 10:32 Escitalopram Oxalate (Lexapro) 10 mg DAILY ORAL 06/05/17 13:30 07/05/17 13:29 06/06/17 10:32 Gabapentin (Neurontin) 300 mg THREE TIMES A DAY ORAL 06/04/17 18:00 07/04/17 17:59 06/06/17 12:21 Hydromorphone HCl (Dilaudid) 1 mg Q3H PRN IVP PAIN 4-10 06/05/17 15:15 06/12/17 15:14 06/06/17 10:30 Ketorolac Tromethamine (Toradol 30mg) 15 mg Q6H PRN IV Moderate Pain (Pain Scale 4-6) 06/05/17 10:00 06/10/17 09:59 Lorazepam (Ativan 2mg/ml 1ml) 0.5 mg Q4H PRN IV For Anxiety 06/04/17 16:30 06/11/17 16:29 06/05/17 23:21 Losartan Potassium (Cozaar) 50 mg DAILY ORAL 06/05/17 09:00 07/05/17 08:59 06/06/17 10:31 Metoprolol Succinate (Toprol XL) 50 mg DAILY ORAL 06/05/17 09:00 07/05/17 08:59 06/06/17 10:31 Ondansetron HCl (Zofran) 4 mg Q6H PRN IVP Nausea & Vomiting 06/04/17 16:30 07/04/17 16:29 Polyethylene Glycol (Miralax) 17 gm HSPRN PRN ORAL Constipation 06/04/17 16:30 07/04/17 16:29 Rivaroxaban (Xarelto) 20 mg DAILY ORAL 06/05/17 09:00 07/05/17 08:59 06/06/17 10:32 Zolpidem Tartrate (Ambien) 5 mg HSPRN PRN ORAL Insomnia 06/04/17 16:30 06/11/17 16:29 Assessment/Plan Assessment/Plan (1) Lumbar DDD (2) Lumbar Spondylosis (3) Lumbar Radiculopathy (4) Lumbar Post laminectomy syndrome (5) S/p SCS implant placement (6) Chronic pain syndrome Seen dictated SUNITHA CASTILLO Jun 06, 2017 14:29
[2017-06-06] MEDS: MS Contin 15mg tab ORAL SCH ×2 (15:34→21:58)
[2017-06-06 16:00] VITALS: BP 157/88
--- NOTE | 2017-06-06 20:14 | Nephrology Progress Note ---
Assessment/Plan Problem List: (1) Hypernatremia (2) Azotemia (3) Opioid dependence (4) Chronic pain syndrome (5) Muscle cramping (6) Intractable pain (7) Anemia (8) HTN (hypertension) (9) Hypoalbuminemia Plan Consult dictated # [id number] Subjective Constitutional: Denies: no symptoms, chills, diaphoresis, fever, malaise, weakness, other HEENT: Denies: no symptoms, eye pain, blurred vision, tearing, double vision, ear pain, ear discharge, nose pain, nose congestion, throat pain, throat swelling, mouth pain, mouth swelling, other Genitourinary: Denies: no symptoms, burning, discharge, frequency, flank pain, hematuria, incontinence, pain, urgency, other Neurologic/Psychiatric: Reports: anxiety, depressed, weakness Objective Objective Last 24 Hour Vital Signs Date Time Temp Pulse Resp B/P (MAP) Pulse Ox O2 Delivery O2 Flow Rate FiO2 06/06/17 19:20 97.8 06/06/17 16:30 97.8 06/06/17 16:00 97.8 88 18 157/88 94 Room Air 06/06/17 12:10 97.5 79 18 144/85 100 Room Air 06/06/17 11:00 97.5 06/06/17 10:31 80 160/87 06/06/17 10:31 160/87 06/06/17 10:31 80 160/87 06/06/17 08:15 97.9 80 18 160/87 96 Room Air 06/06/17 04:00 97.7 65 20 119/67 96 Room Air 06/06/17 00:00 97.9 63 18 125/65 92 Room Air Intake and Output 06/05/17 06/06/17 19:00 07:00 Intake Total 820 ml Balance 820 ml Intake Oral 820 ml Laboratory Tests 06/06/17 06:00: White Blood Count 6.2, Red Blood Count 3.58L, Hemoglobin 10.5L, Hematocrit 33.7L , Mean Corpuscular Volume 94, Mean Corpuscular Hemoglobin 29.4, Mean Corpuscular Hemoglobin Concent 31.2L, Red Cell Distribution Width 13.7, Platelet Count 263, Mean Platelet Volume 5.2L, Neutrophils (%) (Auto) 60.7, Lymphocytes (%) (Auto) 26.1, Monocytes (%) (Auto) 8.3, Eosinophils (%) (Auto) 3.5H, Basophils (%) (Auto) 1.4, Sodium Level 146H, Potassium Level 3.8, Chloride Level 110H, Carbon Dioxide Level 29, Anion Gap 8, Blood Urea Nitrogen 21H, Creatinine 0.7, Estimat Glomerular Filtration Rate > 60, Glucose Level 106 , Calcium Level 9.1 Height (Feet): 5 Height (Inches): 3.00 Weight (Pounds): 140 General Appearance: no apparent distress, alert EENT: normal ENT inspection Neck: normal alignment Cardiovascular: normal rate, no JVD Respiratory/Chest: lungs clear, normal breath sounds, no respiratory distress Abdomen: soft, no organomegaly Extremities: calf tenderness Neurologic: alert, oriented x 3, responsive, normal mood/affect Lissette Brown N.P. Jun 06, 2017 20:14
[2017-06-06 20:38] VITALS: BP 131/76
[2017-06-06] MEDS ORDERED: Amitriptyline 100mg tab ORAL SCH (21:00)
--- NOTE | 2017-06-06 22:17 | Consultation ---
DATE OF CONSULTATION: 06/06/2017 ACUTE PAIN MANAGEMENT CONSULTATION REFERRING PHYSICIAN: Ernesto Magallon D.O. CONSULTING PHYSICIAN: Armani Singh M.D. PHYSICIAN CRYSTAL CUTTER: Praful Camacho CHIEF COMPLAINT: Low back pain and bilateral lower extremity pain. HISTORY OF PRESENT ILLNESS: This is a 52-year-old female, who has been seen on the medical/surgical floor of [facility] for initial comprehensive pain management consultation. The patient reported that she has been having chronic low back pain, history of lumbar surgery with constant chronic pain, rating it at 10/10, describing as sharp and stabbing pain, increased with movement, radiating down bilateral lower extremities with muscle spasms throughout her back and lower extremities. Spinal cord stimulator was placed, however, she had continued pain and muscle spasms with no reduction of pain and was admitted under Dr. Magallon for severe pain, at this time on Dilaudid 1 mg IV every three hours and as needed for pain with no pain relief. The patient reports that she is being seen by Dr. Claire Boles as an outpatient, who is prescribing her morphine extended release 30 mg three times a day with Dilaudid 4 mg tablets every six hours as needed for severe breakthrough pain with baclofen 20 mg two tablets three times a day as well as Soma, Neurontin 300 mg tablet three times a day. CURES was reviewed showing the patient receiving these medications. At this time, the patient is in severe pain with muscle spasms. We were consulted so that the patient would have adequate pain control while here in the hospital. PAST MEDICAL HISTORY: Hypertension, DVT, right eye removal, lumbar degenerative disk disease, spondylosis, and radiculopathy. PAST SURGICAL HISTORY: Laminectomy of the lumbar spine with spinal cord stimulator placement. MEDICATIONS: Baclofen, Neurontin, Dilaudid, morphine extended release, omeprazole, ropinirole, Soma, and Vicodin. ALLERGIES: Methadone, Lyrica, and Zoloft. SOCIAL HISTORY: Denies smoking tobacco, drinking alcohol, or IV drug use. REVIEW OF SYSTEMS: Denies rash, fever, chills, sweatiness, dizziness, drowsiness, sore throat, or change in her weight. No shortness of breath or chest pain. No nausea, vomiting, diarrhea, or blood in the stool or urine. No bowel or bladder incontinence. No dysuria. She is complaining of lower back pain and bilateral extremity. PHYSICAL EXAMINATION: GENERAL: Alert, awake, and oriented. VITAL SIGNS: Blood pressure 144/85, heart rate is 79, oxygen saturation 100%, respiratory rate is 18, and temperature is 97.1 degrees Fahrenheit. Height is 5 feet 3 inches and weight is 120 pounds. HEENT: PERRLA. NECK: Range of motion is full in all directions. No tenderness to paracervical muscles. No adenopathy. LUNGS: Decreased breath sounds bilaterally. HEART: Regular. ABDOMEN: Tenderness to palpation. BACK: Range of motion is decreased in flexion and extension with surgical scars noted. EXTREMITIES: Upper extremity range of motion is full in all directions. Motor is intact. No cyanosis. No clubbing. No edema. Sensory is intact. Reflexes are not obtainable. No adenopathy. Lower extremity motion is decreased due to the patient's medical condition. Motor is 3/5 in all muscles bilaterally. No cyanosis. No clubbing. Sensory is intact. Reflexes are not obtainable. No adenopathy. ASSESSMENT AND PLAN: This is a 52-year-old female with lumbar degenerative disk disease, lumbar spondylosis, lumbar radiculopathy, lumbar postlaminectomy syndrome, status post spinal cord stimulator placement, and chronic pain syndrome. The patient will be continued on Dilaudid 1 mg IV every three hours as needed for severe pain and started on morphine extended release 30 mg tablet three times a day as she takes as an outpatient. We will start the patient on amitriptyline 25 mg nightly. The patient was discussed with Dr. Singh and Dr. Singh concurred. We will follow the patient. Thank you very much for the courtesy of this consultation. Armani Singh M.D. ÁNGEL Camacho DR: CHRISTIANO JOB#: [id number] CC: SHELLEY
[2017-06-07 00:07] VITALS: BP 146/72
--- NOTE | 2017-06-07 00:15 | Consultation ---
DATE OF CONSULTATION: 06/06/2017 NEPHROLOGY CONSULTATION CONSULTING PHYSICIAN: Jose Pelayo M.D. REFERRING PHYSICIAN: Ernesto Magallon D.O. REASON FOR CONSULTATION: Hyponatremia and azotemia. HISTORY OF PRESENT ILLNESS: The patient is a 52-year-old female with past medical history significant for hypertension, DVT, anxiety disorder, depression, and past surgical history of spinal fusion at L4-L5, who presented to the emergency room with right muscle cramps from her right hip to the right foot. She did also complain of some cramps radiating to her right shoulder. She stated that the pain has been ongoing since she had a spinal fusion in 2009, but recently it has gotten increasingly worse, not controlled with the opioid medications that she has been taking. She denies any shortness of breath. No chest pain. No nausea or vomiting. Denies any fever or chills. She is lying in bed at this time. Her only complaint is that she is not getting enough pain medicine and she is thinks the nurses are withholding her pain medicines. PAST MEDICAL HISTORY: Includes hypertension, DVT, anxiety disorder, depression, and muscle cramps. PAST SURGICAL HISTORY: Spinal fusion, small bowel surgery, and hysterectomy. HOME MEDICATIONS: Include amlodipine 10 mg p.o. daily, baclofen 20 mg p.o. t.i.d., Klonopin 1 mg p.o. q.6 h., gabapentin 300 mg p.o. t.i.d., hydromorphone 4 mg p.o., Levsinex 0.125 mg p.o. q.12 h., losartan potassium 50 mg p.o. daily, metoprolol 50 mg p.o. daily, morphine sulfate 30 mg p.o., omeprazole 20 mg p.o. daily, Xarelto 20 mg p.o. daily, and Requip 1 mg p.o. t.i.d. ALLERGIES: She is allergic to methadone, morphine, and pregabalin. SOCIAL HISTORY: She is a current smoker. Drinks alcohol occasionally. Denies any illicit drug use. She lives at home and ambulates with a wheelchair. REVIEW OF SYSTEMS: A full 12-point review of systems was reviewed with the patient and positives as stated in the HPI. PHYSICAL EXAMINATION: GENERAL: This is a 52-year-old woman in bed, in no apparent distress. VITAL SIGNS: Blood pressure 157/88, heart rate is 88, respiratory rate is 18, temperature is 97.8 degrees, and O2 saturation is 94% on room air. HEENT: Head is normocephalic and atraumatic with moist mucous membranes. The patient has a prosthetic right eye. NECK: Supple. No JVD noted. LUNGS: Clear to auscultation bilaterally. No crackles. No wheezing. CARDIOVASCULAR: Regular rate and rhythm. ABDOMEN: Soft, nontender, and nondistended. Positive bowel sounds in all four quadrants. EXTREMITIES: No edema. No cyanosis. No clubbing. NEUROLOGIC: She is awake, alert, and oriented x3. LABORATORY DATA: CBC, white count 6.2, hemoglobin 10.5, hematocrit 33.7, and platelet count of 263,000. BMP, sodium 146, potassium 3.8, chloride 110, bicarbonate 29, BUN 21, creatinine 0.7, and blood glucose is 106. RADIOLOGIC FINDINGS: Checks x-ray findings, no focal lesions, clear, the heart size is normal, there is left chest port catheter, there are spinal stimulator wires noted. Impression, no acute process. ASSESSMENT: 1. Mild hypernatremia. 2. Azotemia. 3. Muscle cramps. 4. Chronic pain syndrome. 5. Hypertension. 6. Anxiety disorder. 7. Depression. 8. Opioid dependence. PLAN: We will continue current treatment plan per primary care physician. We will monitor electrolytes and correct as needed. Pain management as needed. Monitor the patient's neurological status. Monitor intake and output as well. Monitor the patient's overall response to treatment and make recommendations accordingly. Joes Pelayo M.D. Lissette Brown DR: Felix JOB#: [id number] CC: SHELLEY
[2017-06-07] MEDS: HYDROmorphone 1mg/ml Carpuject IVP PRN ×4 (00:24→10:43)
[2017-06-07] MEDS: DiphenhydrAMINE 50mg/ml Inj IVP PRN ×8 (00:32→23:53)
[2017-06-07 04:21] VITALS: BP 120/78
[2017-06-07] MEDS: MS Contin 15mg tab ORAL SCH ×3 (05:48→22:00)
[2017-06-07 08:00] VITALS: BP 115/77
--- NOTE | 2017-06-07 08:49 | General Progress Note ---
Assessment/Plan Assessment/Plan (1) Lumbar DDD (2) Lumbar Spondylosis (3) Lumbar Radiculopathy (4) Lumbar Post laminectomy syndrome (5) S/p SCS implant placement (6) Chronic pain syndrome We will continue Morphine ER increase the Dilaudid to 2mg IV Q3H PRN severe pain Increase the Baclofen to 20mg QID as per her Dr. Verde out pts recommendations. Pt was d/w Dr. Singh and he concurred. Subjective Date patient seen: Jun 07, 2017 Time patient seen: 07:00 - am Allergies: Coded Allergies: METHADONE (Verified Allergy, Unknown, 06/04/17) MORPHINE (Verified Allergy, Unknown, 06/04/17) PREGABALIN (Verified Allergy, Unknown, 06/04/17) Subjective REVIEW OF SYSTEMS: Denies rash, fever, chills, sweatiness, dizziness, drowsiness, sore throat, or change in her weight. No shortness of breath or chest pain. No nausea, vomiting, diarrhea, or blood in the stool or urine. No bowel or bladder incontinence. No dysuria. She is complaining of lower back pain and bilateral extremity. SUBJECTIVE: Patient continues to c/o severe pain with muscle spasms with minimal relief on the Morphine ER and Dilaudid at 1mg. I contacted Dr. Driver and d/w him the patients conditions. Objective Last 24 Hour Vital Signs Date Time Temp Pulse Resp B/P (MAP) Pulse Ox O2 Delivery O2 Flow Rate FiO2 06/07/17 08:00 97.8 77 20 115/77 98 06/07/17 06:47 97.8 06/07/17 06:47 97.8 06/07/17 04:21 97.8 87 14 120/78 98 06/07/17 00:07 97.8 83 18 146/72 98 06/06/17 20:38 97.8 91 18 131/76 98 06/06/17 19:20 97.8 06/06/17 16:00 97.8 88 18 157/88 94 Room Air 06/06/17 12:10 97.5 79 18 144/85 100 Room Air 06/06/17 11:00 97.5 06/06/17 10:31 80 160/87 06/06/17 10:31 160/87 06/06/17 10:31 80 160/87 Intake and Output 06/06/17 06/07/17 19:00 07:00 Intake Total 600 ml Balance 600 ml Intake Oral 600 ml # Voids 1 2 Height (Feet): 5 Height (Inches): 3.00 Weight (Pounds): 140 Objective GENERAL: Alert, awake, and oriented. HEENT: PERRLA. NECK: Range of motion is full in all directions. No tenderness to paracervical muscles. No adenopathy. LUNGS: Decreased breath sounds bilaterally. HEART: Regular. ABDOMEN: Tenderness to palpation. BACK: Range of motion is decreased in flexion and extension with surgical scars noted. EXTREMITIES: No cyanosis. No clubbing. NEURO: No changes. SUNITHA CASTILLO Jun 07, 2017 08:49
[2017-06-07] MEDS: Naloxegol Oxalate 25mg tab ORAL SCH (09:07)
[2017-06-07] MEDS: Xarelto 10mg tab ORAL SCH (09:07)
[2017-06-07] MEDS: Metoprolol Succinate XL 50mg tab ORAL SCH (09:09)
[2017-06-07] MEDS: Losartan 50mg tab ORAL SCH (09:09)
--- NOTE | 2017-06-07 11:38 | Diagnostic Imaging Report ---
APPROVED REPORT CPT Code: 13493 Present Symptoms Lower Extremity Pain: Bilateral BILATERAL: Imaging reveals a patent deep venous system bilaterally. There is no evidence of thrombus within the femoral, popliteal or tibial segments. The greater saphenous veins are also within normal limits. Doppler indicates normal spontaneous flow within these segments.
[2017-06-07 11:39] LABS: BASOPHILS % (AUTO) 0.8 % (0.0-2.0); EOSINOPHILS % (AUTO) 3.2 % (0.0-3.0); HEMATOCRIT 32.9 % (37.0-47.0); HEMOGLOBIN 10.3 G/DL (12.0-16.0); LYMPHOCYTES % (AUTO) 23.7 % (20.0-45.0); MEAN CORPUSCULAR VOLUME 95 FL (80-99); MONOCYTES % (AUTO) 7.7 % (1.0-10.0); NEUTROPHILS % (AUTO) 64.6 % (45.0-75.0); PLATELET COUNT 262 K/UL (150-450); RED BLOOD COUNT 3.45 M/UL (4.20-5.40); RED CELL DISTRIBUTION WIDTH 13.8 % (11.6-14.8); WHITE BLOOD COUNT 6.5 K/UL (4.8-10.8)
[2017-06-07 12:00] VITALS: BP 118/73
[2017-06-07 12:22] LABS: ANION GAP 10 mmol/L (5-15); BLOOD UREA NITROGEN 19 mg/dL (7-18); CARBON DIOXIDE 26 MMOL/L (21-32); CHLORIDE 111 MMOL/L (98-107); CREATININE 0.8 MG/DL (0.55-1.30); POTASSIUM 3.8 MMOL/L (3.5-5.1); SODIUM 147 MMOL/L (136-145)
--- NOTE | 2017-06-07 13:30 | General Progress Note ---
Assessment/Plan Problem List: (1) HTN (hypertension) ICD Codes: I10 - Essential (primary) hypertension SNOMED: 35090417 (2) Anemia ICD Codes: D64.9 - Anemia, unspecified SNOMED: 101618507 (3) Hypoalbuminemia ICD Codes: E88.09 - Other disorders of plasma-protein metabolism, not elsewhere classified SNOMED: 217857519 (4) Muscle cramping ICD Codes: R25.2 - Cramp and spasm SNOMED: 44498337 (5) Intractable pain ICD Codes: R52 - Pain, unspecified SNOMED: 65267703 Status: stable, progressing, tolerating diet Assessment/Plan ot pt diet pain control neuro pain f/u cbc bmp am Subjective Constitutional: Reports: weakness Allergies: Coded Allergies: METHADONE (Verified Allergy, Unknown, 06/04/17) MORPHINE (Verified Allergy, Unknown, 06/04/17) PREGABALIN (Verified Allergy, Unknown, 06/04/17) All Systems: reviewed and negative except above Subjective c/o of leg cramps Objective Last 24 Hour Vital Signs Date Time Temp Pulse Resp B/P (MAP) Pulse Ox O2 Delivery O2 Flow Rate FiO2 06/07/17 12:00 98.1 86 20 118/73 98 06/07/17 09:09 92 115/77 06/07/17 09:09 115/77 06/07/17 09:09 98 115/77 06/07/17 08:00 97.8 77 20 115/77 98 06/07/17 06:47 97.8 06/07/17 06:47 97.8 06/07/17 04:21 97.8 87 14 120/78 98 06/07/17 00:07 97.8 83 18 146/72 98 06/06/17 20:38 97.8 91 18 131/76 98 06/06/17 19:20 97.8 06/06/17 16:00 97.8 88 18 157/88 94 Room Air Intake and Output 06/06/17 06/07/17 19:00 07:00 Intake Total 600 ml Balance 600 ml Intake Oral 600 ml # Voids 1 2 Laboratory Tests 06/07/17 11:15: White Blood Count 6.5, Red Blood Count 3.45L, Hemoglobin 10.3L, Hematocrit 32.9L , Mean Corpuscular Volume 95, Mean Corpuscular Hemoglobin 29.7, Mean Corpuscular Hemoglobin Concent 31.2L, Red Cell Distribution Width 13.8, Platelet Count 262, Mean Platelet Volume 5.3L, Neutrophils (%) (Auto) 64.6, Lymphocytes (%) (Auto) 23.7, Monocytes (%) (Auto) 7.7, Eosinophils (%) (Auto) 3.2H, Basophils (%) (Auto) 0.8, Sodium Level 147H, Potassium Level 3.8, Chloride Level 111H, Carbon Dioxide Level 26, Anion Gap 10, Blood Urea Nitrogen 19H, Creatinine 0.8, Estimat Glomerular Filtration Rate > 60, Glucose Level 110H , Calcium Level 9.0 Height (Feet): 5 Height (Inches): 3.00 Weight (Pounds): 140 General Appearance: lethargic EENT: normal ENT inspection Neck: normal alignment Cardiovascular: normal peripheral pulses, normal rate, regular rhythm Respiratory/Chest: chest wall non-tender, lungs clear, normal breath sounds Abdomen: normal bowel sounds, non tender, soft Extremities: normal inspection Edema: no edema noted Arm (L), no edema noted Arm (R), no edema noted Leg (L), no edema noted Leg (R), no edema noted Pedal (L), no edema noted Pedal (R), no edema noted Generalized Neurologic: responsive, motor weakness Skin: normal pigmentation, warm/dry JUAN FRANCISCO OCAMPO Jun 07, 2017 13:30
[2017-06-07 16:00] VITALS: BP 119/60
--- NOTE | 2017-06-07 17:09 | Pulmonology Progress Note ---
Assessment/Plan Problems: (1) Intractable pain (2) Muscle cramping Assessment/Plan pt is allergic to all pain meds expect for Dilaudid and that to be taken with Benadry. awaiting psych and pain consult pain consult reviewed symptomatic treatment dc planning Subjective ROS Limited/Unobtainable: No Constitutional: Reports: no symptoms HEENT: Repors: no symptoms Respiratory: Reports: no symptoms Allergies: Coded Allergies: METHADONE (Verified Allergy, Unknown, 06/04/17) MORPHINE (Verified Allergy, Unknown, 06/04/17) PREGABALIN (Verified Allergy, Unknown, 06/04/17) Objective Last 24 Hour Vital Signs Date Time Temp Pulse Resp B/P (MAP) Pulse Ox O2 Delivery O2 Flow Rate FiO2 06/07/17 16:00 97.7 77 20 119/60 97 06/07/17 12:00 98.1 86 20 118/73 98 06/07/17 09:09 92 115/77 06/07/17 09:09 115/77 06/07/17 09:09 98 115/77 06/07/17 08:00 97.8 77 20 115/77 98 06/07/17 06:47 97.8 06/07/17 06:47 97.8 06/07/17 04:21 97.8 87 14 120/78 98 06/07/17 00:07 97.8 83 18 146/72 98 06/06/17 20:38 97.8 91 18 131/76 98 06/06/17 19:20 97.8 Intake and Output 06/06/17 06/07/17 19:00 07:00 Intake Total 600 ml Balance 600 ml Intake Oral 600 ml # Voids 1 2 General Appearance: WD/WN HEENT: normocephalic Respiratory/Chest: chest wall non-tender, lungs clear Cardiovascular: normal rate Abdomen: normal bowel sounds, soft, non tender Genitourinary: normal external genitalia Extremities: no clubbing Neurologic/Psychiatric: no motor/sensory deficits Lymphatic: no neck adenopathy Laboratory Tests 06/07/17 11:15: White Blood Count 6.5, Red Blood Count 3.45L, Hemoglobin 10.3L, Hematocrit 32.9L , Mean Corpuscular Volume 95, Mean Corpuscular Hemoglobin 29.7, Mean Corpuscular Hemoglobin Concent 31.2L, Red Cell Distribution Width 13.8, Platelet Count 262, Mean Platelet Volume 5.3L, Neutrophils (%) (Auto) 64.6, Lymphocytes (%) (Auto) 23.7, Monocytes (%) (Auto) 7.7, Eosinophils (%) (Auto) 3.2H, Basophils (%) (Auto) 0.8, Sodium Level 147H, Potassium Level 3.8, Chloride Level 111H, Carbon Dioxide Level 26, Anion Gap 10, Blood Urea Nitrogen 19H, Creatinine 0.8, Estimat Glomerular Filtration Rate > 60, Glucose Level 110H , Calcium Level 9.0 Current Medications Medications (Trade) Dose Ordered Sig/Danni Route PRN Reason Start Time Stop Time Status Last Admin Dose Admin Acetaminophen (Tylenol) 650 mg Q4H PRN ORAL fever 06/04/17 16:30 07/04/17 16:29 Acetaminophen (Tylenol) 650 mg Q4H PRN ORAL Mild Pain (Pain Scale 1-3) 06/04/17 19:00 07/04/17 18:59 Al Hydroxide/Mg Hydroxide (Mylanta II) 30 ml Q6H PRN ORAL dyspepsia 06/04/17 16:30 07/04/17 16:29 Amitriptyline HCl (Elavil) 25 mg BEDTIME ORAL 06/06/17 21:00 07/06/17 20:59 06/06/17 21:19 Amlodipine Besylate (Norvasc) 10 mg DAILY ORAL 06/05/17 09:00 07/05/17 08:59 06/07/17 09:09 Baclofen (Lioresal) 20 mg QID ORAL 06/09/17 21:00 07/07/17 17:59 Carisoprodol (Soma) 350 mg TIDPRN PRN ORAL muscle spasm 06/07/17 14:30 07/07/17 14:29 Chlorhexidine Gluconate (Margot-Hex 2%) 1 applic Q24H TOPIC 06/04/17 20:00 07/04/17 19:59 06/06/17 20:00 Clonazepam (KlonoPIN) 1 mg Q6H ORAL 06/04/17 18:00 06/11/17 17:59 06/07/17 11:56 Dextrose (Dextrose 50%) STAT PRN IV Hypoglycemia 06/04/17 16:30 07/04/17 16:29 Diphenhydramine HCl (Benadryl) 25 mg Q3H PRN IVP Itching 06/05/17 15:15 07/05/17 15:14 06/07/17 14:54 Escitalopram Oxalate (Lexapro) 10 mg DAILY ORAL 06/05/17 13:30 07/05/17 13:29 06/07/17 09:08 Gabapentin (Neurontin) 300 mg THREE TIMES A DAY ORAL 06/04/17 18:00 07/04/17 17:59 06/07/17 11:56 Hydromorphone HCl (Dilaudid) 2 mg Q3H PRN IVP SEVERE BREAKTHROUGH PAIN(7-10) 06/07/17 14:45 06/14/17 14:44 06/07/17 14:55 Lorazepam (Ativan 2mg/ml 1ml) 0.5 mg Q4H PRN IV For Anxiety 06/04/17 16:30 06/11/17 16:29 06/05/17 23:21 Losartan Potassium (Cozaar) 50 mg DAILY ORAL 06/05/17 09:00 07/05/17 08:59 06/07/17 09:09 Metoprolol Succinate (Toprol XL) 50 mg DAILY ORAL 06/05/17 09:00 07/05/17 08:59 06/07/17 09:09 Morphine Sulfate (MS Contin) 30 mg Q8HR ORAL 06/06/17 14:40 06/13/17 14:39 06/07/17 13:24 Naloxegol (Movantik) 25 mg DAILY ORAL 06/07/17 09:00 07/07/17 08:59 06/07/17 09:07 Ondansetron HCl (Zofran) 4 mg Q6H PRN IVP Nausea & Vomiting 06/04/17 16:30 07/04/17 16:29 Oxycodone/ Acetaminophen (Percocet 10/325) 1 tab Q4H PRN ORAL Moderate Breakthru Pain (5-7) 06/07/17 18:15 06/14/17 18:14 Polyethylene Glycol (Miralax) 17 gm HSPRN PRN ORAL Constipation 06/04/17 16:30 07/04/17 16:29 Rivaroxaban (Xarelto) 20 mg DAILY ORAL 06/05/17 09:00 07/05/17 08:59 06/07/17 09:07 Zolpidem Tartrate (Ambien) 5 mg HSPRN PRN ORAL Insomnia 06/04/17 16:30 06/11/17 16:29 ELLIOTT NICOLAS Jun 07, 2017 17:09
--- NOTE | 2017-06-07 18:20 | Nephrology Progress Note ---
Assessment/Plan Problem List: (1) Hypernatremia (2) Azotemia (3) Opioid dependence (4) Chronic pain syndrome (5) Muscle cramping (6) Intractable pain (7) Anemia (8) HTN (hypertension) (9) Hypoalbuminemia Plan Encourage fluids Monitor intake and output Monitor lytes, correct prn Pain management as tolerated Monitor neuro status AM labs Subjective Constitutional: Denies: no symptoms, chills, diaphoresis, fever, malaise, weakness, other HEENT: Denies: no symptoms, eye pain, blurred vision, tearing, double vision, ear pain, ear discharge, nose pain, nose congestion, throat pain, throat swelling, mouth pain, mouth swelling, other Genitourinary: Denies: no symptoms, burning, discharge, frequency, flank pain, hematuria, incontinence, pain, urgency, other Neurologic/Psychiatric: Denies: no symptoms, anxiety, depressed, emotional problems, headache, numbness, paresthesia, pre-existing deficit, seizure, tingling, tremors, weakness, other Subjective In bed, drowsy, but states that she is not, states that she is still in severe generalized pain Objective Objective Last 24 Hour Vital Signs Date Time Temp Pulse Resp B/P (MAP) Pulse Ox O2 Delivery O2 Flow Rate FiO2 06/07/17 16:00 97.7 77 20 119/60 97 06/07/17 12:00 98.1 86 20 118/73 98 06/07/17 09:09 92 115/77 06/07/17 09:09 115/77 06/07/17 09:09 98 115/77 06/07/17 08:00 97.8 77 20 115/77 98 06/07/17 06:47 97.8 06/07/17 06:47 97.8 06/07/17 04:21 97.8 87 14 120/78 98 06/07/17 00:07 97.8 83 18 146/72 98 06/06/17 20:38 97.8 91 18 131/76 98 06/06/17 19:20 97.8 Intake and Output 06/06/17 06/07/17 19:00 07:00 Intake Total 600 ml Balance 600 ml Intake Oral 600 ml # Voids 1 2 Laboratory Tests 06/07/17 11:15: White Blood Count 6.5, Red Blood Count 3.45L, Hemoglobin 10.3L, Hematocrit 32.9L , Mean Corpuscular Volume 95, Mean Corpuscular Hemoglobin 29.7, Mean Corpuscular Hemoglobin Concent 31.2L, Red Cell Distribution Width 13.8, Platelet Count 262, Mean Platelet Volume 5.3L, Neutrophils (%) (Auto) 64.6, Lymphocytes (%) (Auto) 23.7, Monocytes (%) (Auto) 7.7, Eosinophils (%) (Auto) 3.2H, Basophils (%) (Auto) 0.8, Sodium Level 147H, Potassium Level 3.8, Chloride Level 111H, Carbon Dioxide Level 26, Anion Gap 10, Blood Urea Nitrogen 19H, Creatinine 0.8, Estimat Glomerular Filtration Rate > 60, Glucose Level 110H , Calcium Level 9.0 Height (Feet): 5 Height (Inches): 3.00 Weight (Pounds): 140 General Appearance: no apparent distress, alert EENT: normal ENT inspection Neck: normal alignment Cardiovascular: normal rate Respiratory/Chest: lungs clear Abdomen: soft Extremities: normal inspection Neurologic: alert, responsive Lissette Brown N.P. Jun 07, 2017 18:20
[2017-06-07 20:00] VITALS: BP 132/60
[2017-06-07] MEDS: Dyna-Hex 2% Top Sol 2oz TOPIC SCH (20:45)
[2017-06-08] VITALS: BP 139/87
[2017-06-08] MEDS: DiphenhydrAMINE 50mg/ml Inj IVP PRN ×6 (03:02→22:48)
[2017-06-08 04:00] VITALS: BP 151/84
[2017-06-08] MEDS: MS Contin 15mg tab ORAL SCH ×3 (06:00→22:00)
[2017-06-08 07:50] LABS: ANION GAP 10 mmol/L (5-15); BLOOD UREA NITROGEN 15 mg/dL (7-18); CALCIUM 8.7 MG/DL (8.5-10.1); CARBON DIOXIDE 26 MMOL/L (21-32); CHLORIDE 109 MMOL/L (98-107); CREATININE 0.6 MG/DL (0.55-1.30); POTASSIUM 3.8 MMOL/L (3.5-5.1); SODIUM 145 MMOL/L (136-145)
[2017-06-08 08:20] VITALS: BP 130/79
[2017-06-08 08:20] LABS: BASOPHILS % (AUTO) 1.1 % (0.0-2.0); EOSINOPHILS % (AUTO) 3.5 % (0.0-3.0); HEMATOCRIT 33.8 % (37.0-47.0); HEMOGLOBIN 10.6 G/DL (12.0-16.0); LYMPHOCYTES % (AUTO) 32.7 % (20.0-45.0); MEAN CORPUSCULAR VOLUME 95 FL (80-99); MONOCYTES % (AUTO) 5.6 % (1.0-10.0); NEUTROPHILS % (AUTO) 57.1 % (45.0-75.0); PLATELET COUNT 260 K/UL (150-450); RED BLOOD COUNT 3.56 M/UL (4.20-5.40); RED CELL DISTRIBUTION WIDTH 13.4 % (11.6-14.8); WHITE BLOOD COUNT 5.6 K/UL (4.8-10.8)
--- NOTE | 2017-06-08 09:11 | General Progress Note ---
Assessment/Plan Assessment/Plan (1) Lumbar DDD (2) Lumbar Spondylosis (3) Lumbar Radiculopathy (4) Lumbar Post laminectomy syndrome (5) S/p SCS implant placement (6) Chronic pain syndrome We will continue Morphine ER, Dilaudid and Baclofen. Pt was d/w Dr. Singh and he concurred. Subjective Date patient seen: Jun 08, 2017 Time patient seen: 07:15 - am Allergies: Coded Allergies: METHADONE (Verified Allergy, Unknown, 06/04/17) MORPHINE (Verified Allergy, Unknown, 06/04/17) PREGABALIN (Verified Allergy, Unknown, 06/04/17) Subjective REVIEW OF SYSTEMS: Denies rash, fever, chills, sweatiness, dizziness, drowsiness, sore throat, or change in her weight. No shortness of breath or chest pain. No nausea, vomiting, diarrhea, or blood in the stool or urine. No bowel or bladder incontinence. No dysuria. She is complaining of lower back pain and bilateral extremity. SUBJECTIVE: Patient reports that the pain is unchanged however it has been tolerated on the Dilaudid and Morphine ER. Pt is in bed showing no signs of distress or pain. Objective Last 24 Hour Vital Signs Date Time Temp Pulse Resp B/P (MAP) Pulse Ox O2 Delivery O2 Flow Rate FiO2 06/08/17 08:20 97.8 80 20 130/79 97 06/08/17 04:00 98.1 73 18 151/84 98 Room Air 06/08/17 00:00 97.7 73 20 139/87 98 Room Air 06/07/17 20:00 98.1 74 19 132/60 97 Room Air 06/07/17 16:00 97.7 77 20 119/60 97 06/07/17 12:00 98.1 86 20 118/73 98 Intake and Output 06/07/17 06/08/17 19:00 07:00 Intake Total 480 ml 300 ml Balance 480 ml 300 ml Intake Oral 480 ml 300 ml # Voids 3 2 Laboratory Tests 06/07/17 11:15: White Blood Count 6.5, Red Blood Count 3.45L, Hemoglobin 10.3L, Hematocrit 32.9L , Mean Corpuscular Volume 95, Mean Corpuscular Hemoglobin 29.7, Mean Corpuscular Hemoglobin Concent 31.2L, Red Cell Distribution Width 13.8, Platelet Count 262, Mean Platelet Volume 5.3L, Neutrophils (%) (Auto) 64.6, Lymphocytes (%) (Auto) 23.7, Monocytes (%) (Auto) 7.7, Eosinophils (%) (Auto) 3.2H, Basophils (%) (Auto) 0.8, Sodium Level 147H, Potassium Level 3.8, Chloride Level 111H, Carbon Dioxide Level 26, Anion Gap 10, Blood Urea Nitrogen 19H, Creatinine 0.8, Estimat Glomerular Filtration Rate > 60, Glucose Level 110H , Calcium Level 9.0 06/08/17 05:00: White Blood Count 5.6, Red Blood Count 3.56L, Hemoglobin 10.6L, Hematocrit 33.8L , Mean Corpuscular Volume 95, Mean Corpuscular Hemoglobin 29.8, Mean Corpuscular Hemoglobin Concent 31.5L, Red Cell Distribution Width 13.4, Platelet Count 260, Mean Platelet Volume 5.4L, Neutrophils (%) (Auto) 57.1, Lymphocytes (%) (Auto) 32.7, Monocytes (%) (Auto) 5.6, Eosinophils (%) (Auto) 3.5H, Basophils (%) (Auto) 1.1, Sodium Level 145, Potassium Level 3.8, Chloride Level 109H, Carbon Dioxide Level 26, Anion Gap 10, Blood Urea Nitrogen 15, Creatinine 0.6, Estimat Glomerular Filtration Rate > 60, Glucose Level 77, Calcium Level 8.7 Height (Feet): 5 Height (Inches): 3.00 Weight (Pounds): 140 Objective GENERAL: Alert, awake, and oriented. HEENT: PERRLA. NECK: Range of motion is full in all directions. No tenderness to paracervical muscles. No adenopathy. LUNGS: Decreased breath sounds bilaterally. HEART: Regular. ABDOMEN: Tenderness to palpation. BACK: Range of motion is decreased in flexion and extension with surgical scars noted. EXTREMITIES: No cyanosis. No clubbing. NEURO: No changes. SUNITHA CASTILLO Jun 08, 2017 09:11
[2017-06-08] MEDS: Naloxegol Oxalate 25mg tab ORAL SCH (09:50)
[2017-06-08] MEDS: Xarelto 10mg tab ORAL SCH (09:51)
[2017-06-08] MEDS: Metoprolol Succinate XL 50mg tab ORAL SCH (09:51)
[2017-06-08] MEDS: Losartan 50mg tab ORAL SCH (09:52)
[2017-06-08 11:55] VITALS: BP 135/82
--- NOTE | 2017-06-08 12:30 | General Progress Note ---
Assessment/Plan Problem List: (1) HTN (hypertension) ICD Codes: I10 - Essential (primary) hypertension SNOMED: 97366189 (2) Anemia ICD Codes: D64.9 - Anemia, unspecified SNOMED: 488465839 (3) Hypoalbuminemia ICD Codes: E88.09 - Other disorders of plasma-protein metabolism, not elsewhere classified SNOMED: 214004727 (4) Muscle cramping ICD Codes: R25.2 - Cramp and spasm SNOMED: 08986368 (5) Intractable pain ICD Codes: R52 - Pain, unspecified SNOMED: 75647503 Status: unchanged Assessment/Plan ot pt diet pain control neuro pain f/u cbc bmp am dc plan Subjective Constitutional: Reports: weakness Allergies: Coded Allergies: METHADONE (Verified Allergy, Unknown, 06/04/17) MORPHINE (Verified Allergy, Unknown, 06/04/17) PREGABALIN (Verified Allergy, Unknown, 06/04/17) All Systems: reviewed and negative except above Subjective c/o of leg cramps Objective Last 24 Hour Vital Signs Date Time Temp Pulse Resp B/P (MAP) Pulse Ox O2 Delivery O2 Flow Rate FiO2 06/08/17 11:55 98.4 84 20 135/82 97 06/08/17 09:52 130/79 06/08/17 09:51 80 130/79 06/08/17 09:50 80 130/79 06/08/17 08:20 97.8 80 20 130/79 97 06/08/17 04:00 98.1 73 18 151/84 98 Room Air 06/08/17 00:00 97.7 73 20 139/87 98 Room Air 06/07/17 20:00 98.1 74 19 132/60 97 Room Air 06/07/17 16:00 97.7 77 20 119/60 97 Intake and Output 06/07/17 06/08/17 19:00 07:00 Intake Total 480 ml 300 ml Balance 480 ml 300 ml Intake Oral 480 ml 300 ml # Voids 3 2 Laboratory Tests 06/08/17 05:00: White Blood Count 5.6, Red Blood Count 3.56L, Hemoglobin 10.6L, Hematocrit 33.8L , Mean Corpuscular Volume 95, Mean Corpuscular Hemoglobin 29.8, Mean Corpuscular Hemoglobin Concent 31.5L, Red Cell Distribution Width 13.4, Platelet Count 260, Mean Platelet Volume 5.4L, Neutrophils (%) (Auto) 57.1, Lymphocytes (%) (Auto) 32.7, Monocytes (%) (Auto) 5.6, Eosinophils (%) (Auto) 3.5H, Basophils (%) (Auto) 1.1, Sodium Level 145, Potassium Level 3.8, Chloride Level 109H, Carbon Dioxide Level 26, Anion Gap 10, Blood Urea Nitrogen 15, Creatinine 0.6, Estimat Glomerular Filtration Rate > 60, Glucose Level 77, Calcium Level 8.7 Height (Feet): 5 Height (Inches): 3.00 Weight (Pounds): 140 General Appearance: alert EENT: normal ENT inspection Neck: normal alignment Cardiovascular: normal peripheral pulses, normal rate, regular rhythm Respiratory/Chest: chest wall non-tender, lungs clear, normal breath sounds Abdomen: normal bowel sounds, non tender, soft Extremities: normal inspection Edema: no edema noted Arm (L), no edema noted Arm (R), no edema noted Leg (L), no edema noted Leg (R), no edema noted Pedal (L), no edema noted Pedal (R), no edema noted Generalized Neurologic: responsive, motor weakness Skin: normal pigmentation, warm/dry JUAN FRANCISCO OCAMPO Jun 08, 2017 12:30
[2017-06-08 16:00] VITALS: BP 140/74
--- NOTE | 2017-06-08 18:06 | Pulmonology Progress Note ---
Assessment/Plan Problems: (1) Intractable pain (2) Muscle cramping Assessment/Plan pt is allergic to all pain meds expect for Dilaudid and that to be taken with [place]. awaiting psych and pain consult all reviewed pain consult reviewed symptomatic treatment dc planning Subjective ROS Limited/Unobtainable: No Allergies: Coded Allergies: METHADONE (Verified Allergy, Unknown, 06/04/17) MORPHINE (Verified Allergy, Unknown, 06/04/17) PREGABALIN (Verified Allergy, Unknown, 06/04/17) Objective Last 24 Hour Vital Signs Date Time Temp Pulse Resp B/P (MAP) Pulse Ox O2 Delivery O2 Flow Rate FiO2 06/08/17 16:00 98.0 67 20 140/74 97 06/08/17 11:55 98.4 84 20 135/82 97 06/08/17 09:52 130/79 06/08/17 09:51 80 130/79 06/08/17 09:50 80 130/79 06/08/17 08:20 97.8 80 20 130/79 97 06/08/17 04:00 98.1 73 18 151/84 98 Room Air 06/08/17 00:00 97.7 73 20 139/87 98 Room Air 06/07/17 20:00 98.1 74 19 132/60 97 Room Air Intake and Output 06/07/17 06/08/17 19:00 07:00 Intake Total 480 ml 300 ml Balance 480 ml 300 ml Intake Oral 480 ml 300 ml # Voids 3 2 Objective General Appearance: wnl HEENT: normocephalic, atraumatic Respiratory/Chest: chest wall non-tender, lungs clear Cardiovascular: normal peripheral pulses, normal rate Abdomen: normal bowel sounds, no organomegaly Extremities: no cyanosis Skin: no rash Neurologic/Psychiatric: examination grader II-XII grossly normal, alert Lymphatic: no neck adenopathy Laboratory Tests 06/08/17 05:00: White Blood Count 5.6, Red Blood Count 3.56L, Hemoglobin 10.6L, Hematocrit 33.8L , Mean Corpuscular Volume 95, Mean Corpuscular Hemoglobin 29.8, Mean Corpuscular Hemoglobin Concent 31.5L, Red Cell Distribution Width 13.4, Platelet Count 260, Mean Platelet Volume 5.4L, Neutrophils (%) (Auto) 57.1, Lymphocytes (%) (Auto) 32.7, Monocytes (%) (Auto) 5.6, Eosinophils (%) (Auto) 3.5H, Basophils (%) (Auto) 1.1, Sodium Level 145, Potassium Level 3.8, Chloride Level 109H, Carbon Dioxide Level 26, Anion Gap 10, Blood Urea Nitrogen 15, Creatinine 0.6, Estimat Glomerular Filtration Rate > 60, Glucose Level 77, Calcium Level 8.7 Current Medications Medications (Trade) Dose Ordered Sig/Danni Route PRN Reason Start Time Stop Time Status Last Admin Dose Admin Acetaminophen (Tylenol) 650 mg Q4H PRN ORAL fever 06/04/17 16:30 07/04/17 16:29 Acetaminophen (Tylenol) 650 mg Q4H PRN ORAL Mild Pain (Pain Scale 1-3) 06/04/17 19:00 07/04/17 18:59 Al Hydroxide/Mg Hydroxide (Mylanta II) 30 ml Q6H PRN ORAL dyspepsia 06/04/17 16:30 07/04/17 16:29 Amitriptyline HCl (Elavil) 25 mg BEDTIME ORAL 06/06/17 21:00 07/06/17 20:59 06/07/17 20:45 Amlodipine Besylate (Norvasc) 10 mg DAILY ORAL 06/05/17 09:00 07/05/17 08:59 06/08/17 09:50 Baclofen (Lioresal) 20 mg QID ORAL 06/08/17 16:45 07/08/17 16:44 06/08/17 17:10 Carisoprodol (Soma) 350 mg TIDPRN PRN ORAL muscle spasm 06/07/17 14:30 07/07/17 14:29 Chlorhexidine Gluconate (Margot-Hex 2%) 1 applic Q24H TOPIC 06/04/17 20:00 07/04/17 19:59 06/07/17 20:45 Clonazepam (KlonoPIN) 1 mg Q6H ORAL 06/04/17 18:00 06/11/17 17:59 06/08/17 17:10 Dextrose (Dextrose 50%) STAT PRN IV Hypoglycemia 06/04/17 16:30 07/04/17 16:29 Diphenhydramine HCl (Benadryl) 25 mg Q3H PRN IVP Itching 06/05/17 15:15 2/26/18 15:14 06/08/17 16:41 Escitalopram Oxalate (Lexapro) 10 mg DAILY ORAL 06/05/17 13:30 07/05/17 13:29 06/08/17 09:52 Gabapentin (Neurontin) 300 mg THREE TIMES A DAY ORAL 06/04/17 18:00 07/04/17 17:59 06/08/17 17:10 Hydromorphone HCl (Dilaudid) 2 mg Q3H PRN IVP SEVERE BREAKTHROUGH PAIN(7-10) 06/07/17 14:45 06/14/17 14:44 06/08/17 16:42 Lorazepam (Ativan 2mg/ml 1ml) 0.5 mg Q4H PRN IV For Anxiety 06/04/17 16:30 06/11/17 16:29 06/05/17 23:21 Losartan Potassium (Cozaar) 50 mg DAILY ORAL 06/05/17 09:00 07/05/17 08:59 06/08/17 09:52 Metoprolol Succinate (Toprol XL) 50 mg DAILY ORAL 06/05/17 09:00 07/05/17 08:59 06/08/17 09:51 Morphine Sulfate (MS Contin) 30 mg Q8HR ORAL 06/06/17 14:40 06/13/17 14:39 06/07/17 13:24 Naloxegol (Movantik) 25 mg DAILY ORAL 06/07/17 09:00 07/07/17 08:59 06/08/17 09:50 Ondansetron HCl (Zofran) 4 mg Q6H PRN IVP Nausea & Vomiting 06/04/17 16:30 07/04/17 16:29 06/08/17 04:47 Oxycodone/ Acetaminophen (Percocet 10/325) 1 tab Q4H PRN ORAL Moderate Breakthru Pain (5-7) 06/07/17 18:15 06/14/17 18:14 Polyethylene Glycol (Miralax) 17 gm HSPRN PRN ORAL Constipation 06/04/17 16:30 07/04/17 16:29 06/08/17 17:10 Rivaroxaban (Xarelto) 20 mg DAILY ORAL 06/05/17 09:00 07/05/17 08:59 06/08/17 09:51 Zolpidem Tartrate (Ambien) 5 mg HSPRN PRN ORAL Insomnia 06/04/17 16:30 06/11/17 16:29 ELLIOTT NICOLAS Jun 08, 2017 18:06
[2017-06-08 20:00] VITALS: BP 119/79
[2017-06-08] MEDS: Dyna-Hex 2% Top Sol 2oz TOPIC SCH (20:27)
--- NOTE | 2017-06-08 23:12 | Nephrology Progress Note ---
Objective Objective Last 24 Hour Vital Signs Date Time Temp Pulse Resp B/P (MAP) Pulse Ox O2 Delivery O2 Flow Rate FiO2 06/08/17 20:00 98.1 71 20 119/79 99 Room Air 06/08/17 16:00 98.0 67 20 140/74 97 06/08/17 11:55 98.4 84 20 135/82 97 06/08/17 09:52 130/79 06/08/17 09:51 80 130/79 06/08/17 09:50 80 130/79 06/08/17 08:20 97.8 80 20 130/79 97 06/08/17 04:00 98.1 73 18 151/84 98 Room Air 06/08/17 00:00 97.7 73 20 139/87 98 Room Air Intake and Output 06/07/17 06/08/17 19:00 07:00 Intake Total 480 ml 300 ml Balance 480 ml 300 ml Intake Oral 480 ml 300 ml # Voids 3 2 Laboratory Tests 06/08/17 05:00: White Blood Count 5.6, Red Blood Count 3.56L, Hemoglobin 10.6L, Hematocrit 33.8L , Mean Corpuscular Volume 95, Mean Corpuscular Hemoglobin 29.8, Mean Corpuscular Hemoglobin Concent 31.5L, Red Cell Distribution Width 13.4, Platelet Count 260, Mean Platelet Volume 5.4L, Neutrophils (%) (Auto) 57.1, Lymphocytes (%) (Auto) 32.7, Monocytes (%) (Auto) 5.6, Eosinophils (%) (Auto) 3.5H, Basophils (%) (Auto) 1.1, Sodium Level 145, Potassium Level 3.8, Chloride Level 109H, Carbon Dioxide Level 26, Anion Gap 10, Blood Urea Nitrogen 15, Creatinine 0.6, Estimat Glomerular Filtration Rate > 60, Glucose Level 77, Calcium Level 8.7 Height (Feet): 5 Height (Inches): 3.00 Weight (Pounds): 140 ALISE GORDILLO Jun 08, 2017 23:12
[2017-06-09] VITALS: BP 118/73
[2017-06-09] MEDS: DiphenhydrAMINE 50mg/ml Inj IVP PRN ×3 (01:55→12:19)
[2017-06-09 04:00] VITALS: BP 123/75
[2017-06-09] MEDS: MS Contin 15mg tab ORAL SCH (06:00)
[2017-06-09 07:28] LABS: BASOPHILS % (AUTO) 1.1 % (0.0-2.0); EOSINOPHILS % (AUTO) 3.2 % (0.0-3.0); HEMATOCRIT 29.6 % (37.0-47.0); HEMOGLOBIN 9.4 G/DL (12.0-16.0); LYMPHOCYTES % (AUTO) 40.9 % (20.0-45.0); MEAN CORPUSCULAR VOLUME 94 FL (80-99); MONOCYTES % (AUTO) 6.8 % (1.0-10.0); PLATELET COUNT 237 K/UL (150-450); RED BLOOD COUNT 3.15 M/UL (4.20-5.40); RED CELL DISTRIBUTION WIDTH 13.5 % (11.6-14.8); WHITE BLOOD COUNT 4.5 K/UL (4.8-10.8)
[2017-06-09 07:42] LABS: ANION GAP 6 mmol/L (5-15); BLOOD UREA NITROGEN 18 mg/dL (7-18); CALCIUM 8.8 MG/DL (8.5-10.1); CARBON DIOXIDE 30 MMOL/L (21-32); CHLORIDE 107 MMOL/L (98-107); CREATININE 0.7 MG/DL (0.55-1.30); POTASSIUM 3.8 MMOL/L (3.5-5.1); SODIUM 143 MMOL/L (136-145)
[2017-06-09 08:00] VITALS: BP 136/89
[2017-06-09] MEDS: Losartan 50mg tab ORAL SCH (09:01)
[2017-06-09] MEDS: Metoprolol Succinate XL 50mg tab ORAL SCH (09:02)
[2017-06-09] MEDS: Naloxegol Oxalate 25mg tab ORAL SCH (09:03)
[2017-06-09] MEDS: Xarelto 10mg tab ORAL SCH (09:04)
--- NOTE | 2017-06-09 09:06 | General Progress Note ---
Assessment/Plan Assessment/Plan (1) Lumbar DDD (2) Lumbar Spondylosis (3) Lumbar Radiculopathy (4) Lumbar Post laminectomy syndrome (5) S/p SCS implant placement (6) Chronic pain syndrome We will continue Morphine ER, Dilaudid and Baclofen. Pt was d/w Dr. Singh and he concurred. Subjective Date patient seen: Jun 09, 2017 Time patient seen: 07:00 - am Allergies: Coded Allergies: METHADONE (Verified Allergy, Unknown, 06/04/17) MORPHINE (Verified Allergy, Unknown, 06/04/17) PREGABALIN (Verified Allergy, Unknown, 06/04/17) Subjective REVIEW OF SYSTEMS: Denies rash, fever, chills, sweatiness, dizziness, drowsiness, sore throat, or change in her weight. No shortness of breath or chest pain. No nausea, vomiting, diarrhea, or blood in the stool or urine. No bowel or bladder incontinence. No dysuria. She is complaining of lower back pain and bilateral extremity. SUBJECTIVE: Patient is in bed and has no new complaints. Her pain has been tolerated on the Dilaudid. Objective Last 24 Hour Vital Signs Date Time Temp Pulse Resp B/P (MAP) Pulse Ox O2 Delivery O2 Flow Rate FiO2 06/09/17 09:03 79 136/89 06/09/17 09:02 79 136/89 06/09/17 09:01 136/89 06/09/17 08:00 98.2 79 20 136/89 96 06/09/17 04:00 98.2 64 18 123/75 93 Room Air 06/09/17 00:00 98.2 70 18 118/73 98 Room Air 06/08/17 20:00 98.1 71 20 119/79 99 Room Air 06/08/17 16:00 98.0 67 20 140/74 97 06/08/17 11:55 98.4 84 20 135/82 97 06/08/17 09:52 130/79 06/08/17 09:51 80 130/79 06/08/17 09:50 80 130/79 Intake and Output 06/08/17 06/09/17 19:00 07:00 Intake Total 680 ml 360 ml Balance 680 ml 360 ml Intake Oral 680 ml 360 ml # Voids 1 2 Laboratory Tests 06/09/17 05:45: White Blood Count 4.5L, Red Blood Count 3.15L, Hemoglobin 9.4L, Hematocrit 29.6L , Mean Corpuscular Volume 94, Mean Corpuscular Hemoglobin 29.8, Mean Corpuscular Hemoglobin Concent 31.7L, Red Cell Distribution Width 13.5, Platelet Count 237, Mean Platelet Volume 5.0L, Neutrophils (%) (Auto) 48.0, Lymphocytes (%) (Auto) 40.9, Monocytes (%) (Auto) 6.8, Eosinophils (%) (Auto) 3.2H, Basophils (%) (Auto) 1.1, Sodium Level 143, Potassium Level 3.8, Chloride Level 107, Carbon Dioxide Level 30, Anion Gap 6, Blood Urea Nitrogen 18, Creatinine 0.7, Estimat Glomerular Filtration Rate > 60, Glucose Level 72L, Calcium Level 8.8 Height (Feet): 5 Height (Inches): 3.00 Weight (Pounds): 140 Objective GENERAL: Alert, awake, and oriented. HEENT: PERRLA. NECK: Range of motion is full in all directions. No tenderness to paracervical muscles. No adenopathy. LUNGS: Decreased breath sounds bilaterally. HEART: Regular. ABDOMEN: Tenderness to palpation. BACK: Range of motion is decreased in flexion and extension with surgical scars noted. EXTREMITIES: No cyanosis. No clubbing. NEURO: No changes. SUNITHA CASTILLO Jun 09, 2017 09:06
[2017-06-09 12:00] VITALS: BP 128/74
--- NOTE | 2017-06-09 13:40 | General Progress Note ---
Assessment/Plan Problem List: (1) HTN (hypertension) ICD Codes: I10 - Essential (primary) hypertension SNOMED: 30319672 (2) Anemia ICD Codes: D64.9 - Anemia, unspecified SNOMED: 310866663 (3) Hypoalbuminemia ICD Codes: E88.09 - Other disorders of plasma-protein metabolism, not elsewhere classified SNOMED: 454362969 (4) Muscle cramping ICD Codes: R25.2 - Cramp and spasm SNOMED: 41064420 (5) Intractable pain ICD Codes: R52 - Pain, unspecified SNOMED: 75248220 Status: stable, progressing, tolerating diet Assessment/Plan ot pt diet pain control neuro pain f/u dc home w hh Subjective Constitutional: Reports: weakness Allergies: Coded Allergies: METHADONE (Verified Allergy, Unknown, 06/04/17) MORPHINE (Verified Allergy, Unknown, 06/04/17) PREGABALIN (Verified Allergy, Unknown, 06/04/17) All Systems: reviewed and negative except above Subjective c/o of leg cramps Objective Last 24 Hour Vital Signs Date Time Temp Pulse Resp B/P (MAP) Pulse Ox O2 Delivery O2 Flow Rate FiO2 06/09/17 12:00 98.1 76 19 128/74 96 06/09/17 09:03 79 136/89 06/09/17 09:02 79 136/89 06/09/17 09:01 136/89 06/09/17 08:00 98.2 79 20 136/89 96 06/09/17 04:00 98.2 64 18 123/75 93 Room Air 06/09/17 00:00 98.2 70 18 118/73 98 Room Air 06/08/17 20:00 98.1 71 20 119/79 99 Room Air 06/08/17 16:00 98.0 67 20 140/74 97 Intake and Output 06/08/17 06/09/17 19:00 07:00 Intake Total 680 ml 360 ml Balance 680 ml 360 ml Intake Oral 680 ml 360 ml # Voids 1 2 Laboratory Tests 06/09/17 05:45: White Blood Count 4.5L, Red Blood Count 3.15L, Hemoglobin 9.4L, Hematocrit 29.6L , Mean Corpuscular Volume 94, Mean Corpuscular Hemoglobin 29.8, Mean Corpuscular Hemoglobin Concent 31.7L, Red Cell Distribution Width 13.5, Platelet Count 237, Mean Platelet Volume 5.0L, Neutrophils (%) (Auto) 48.0, Lymphocytes (%) (Auto) 40.9, Monocytes (%) (Auto) 6.8, Eosinophils (%) (Auto) 3.2H, Basophils (%) (Auto) 1.1, Sodium Level 143, Potassium Level 3.8, Chloride Level 107, Carbon Dioxide Level 30, Anion Gap 6, Blood Urea Nitrogen 18, Creatinine 0.7, Estimat Glomerular Filtration Rate > 60, Glucose Level 72L, Calcium Level 8.8 Height (Feet): 5 Height (Inches): 3.00 Weight (Pounds): 140 General Appearance: alert EENT: normal ENT inspection Neck: normal alignment Cardiovascular: normal peripheral pulses, normal rate, regular rhythm Respiratory/Chest: chest wall non-tender, lungs clear, normal breath sounds Abdomen: normal bowel sounds, non tender, soft Extremities: normal inspection Edema: no edema noted Arm (L), no edema noted Arm (R), no edema noted Leg (L), no edema noted Leg (R), no edema noted Pedal (L), no edema noted Pedal (R), no edema noted Generalized Neurologic: responsive, motor weakness Skin: normal pigmentation, warm/dry JUAN FRANCISCO OCAMPO Jun 09, 2017 13:40
--- NOTE | 2017-06-09 19:18 | Pulmonology Progress Note ---
Assessment/Plan Problems: (1) Intractable pain (2) Muscle cramping Assessment/Plan pt agreed to go home all reviewed pain consult reviewed symptomatic treatment Subjective ROS Limited/Unobtainable: No Constitutional: Reports: no symptoms HEENT: Repors: no symptoms Respiratory: Reports: no symptoms Allergies: Coded Allergies: METHADONE (Verified Allergy, Unknown, 06/04/17) MORPHINE (Verified Allergy, Unknown, 06/04/17) PREGABALIN (Verified Allergy, Unknown, 06/04/17) Objective Last 24 Hour Vital Signs Date Time Temp Pulse Resp B/P (MAP) Pulse Ox O2 Delivery O2 Flow Rate FiO2 06/09/17 12:00 98.1 76 19 128/74 96 06/09/17 09:03 79 136/89 06/09/17 09:02 79 136/89 06/09/17 09:01 136/89 06/09/17 08:00 98.2 79 20 136/89 96 06/09/17 04:00 98.2 64 18 123/75 93 Room Air 06/09/17 00:00 98.2 70 18 118/73 98 Room Air 06/08/17 20:00 98.1 71 20 119/79 99 Room Air Intake and Output 06/08/17 06/09/17 19:00 07:00 Intake Total 680 ml 360 ml Balance 680 ml 360 ml Intake Oral 680 ml 360 ml # Voids 1 2 Objective General Appearance: wnl HEENT: normocephalic, atraumatic Respiratory/Chest: chest wall non-tender, lungs clear Cardiovascular: normal peripheral pulses, normal rate Abdomen: normal bowel sounds, no organomegaly Extremities: no cyanosis Skin: no rash Neurologic/Psychiatric: well flow operator II-XII grossly normal, alert Lymphatic: no neck adenopathy Laboratory Tests 06/09/17 05:45: White Blood Count 4.5L, Red Blood Count 3.15L, Hemoglobin 9.4L, Hematocrit 29.6L , Mean Corpuscular Volume 94, Mean Corpuscular Hemoglobin 29.8, Mean Corpuscular Hemoglobin Concent 31.7L, Red Cell Distribution Width 13.5, Platelet Count 237, Mean Platelet Volume 5.0L, Neutrophils (%) (Auto) 48.0, Lymphocytes (%) (Auto) 40.9, Monocytes (%) (Auto) 6.8, Eosinophils (%) (Auto) 3.2H, Basophils (%) (Auto) 1.1, Sodium Level 143, Potassium Level 3.8, Chloride Level 107, Carbon Dioxide Level 30, Anion Gap 6, Blood Urea Nitrogen 18, Creatinine 0.7, Estimat Glomerular Filtration Rate > 60, Glucose Level 72L, Calcium Level 8.8 ELLIOTT NICOLAS Jun 09, 2017 19:18
--- NOTE | 2017-06-10 15:50 | Discharge Summary ---
Discharge Summary Hospital Course Date of Admission Jun 04, 2017 at 13:18 Date of Discharge Jun 09, 2017 at 13:30 Admitting Diagnosis intractable muscle cramps HPI Naz Carmona is a 52 year old female who was admitted on Jun 04, 2017 at 13: 18 for Intractable Muscle Cramps Hospital Course [id number] Discharge Discharge Disposition Patient was discharged to Home with Home Health(06) Discharge Diagnoses: Alejandra Merchant NP Jun 10, 2017 15:50
--- NOTE | 2017-06-11 20:00 | Discharge Summary 2 SIG ---
DATE OF ADMISSION: 06/04/2017 DATE OF DISCHARGE: 06/09/2017 CONSULTANTS: 1. Adam Tom M.D. 2. Armani Singh M.D. 3. Atilio Mckeon M.D. 4. Jose Pelayo M.D. BRIEF HOSPITAL COURSE: The patient is a 52-year-old female who lives at home with history of muscle cramps and hypertension, presented to the ED for evaluation of cramping to the right side of the body, which was 10/10. The patient has cauda equina syndrome. She was given multiple rounds of analgesia, however, the patient continued to report pain. On evaluation at ED, EKG was in normal sinus rhythm with no acute changes. The patient came in with a port for IV access. Blood work was unremarkable. She was admitted for evaluation of intractable pain. She was resumed on home medications. She was seen by paperhanger and painter, as the patient has multiple allergies to different pain medications. She was given morphine ER and Dilaudid and baclofen was increased. The patient was seen by Dr. Mckeon and was started on Lexapro 10 mg daily. She had hypernatremia and was encouraged fluids. She had venous duplex of lower extremity that was negative for DVT. She was given PT and OT. The patient was eventually discharged home with home health. FINAL DIAGNOSES: 1. Intractable pain. 2. Muscle cramps. 3. Hypertension. 4. Hypoalbuminemia. 5. Lumbar disc disease with spondylosis and radiculopathy. 6. Chronic pain syndrome. 7. Hypernatremia. DISPOSITION: The patient was discharged home with home health. Ernesto Magallon D.O. I have been assigned to dictate discharge summary on this account and I was not involved in the patient's management. Alejandra Merchant N.P. DR: NAOMI JOB#: [id number] CC:
--- NOTE | 2017-06-14 13:58 | Cardiology Report ---
APPROVED REPORT EKG Measurement Heart [id number] Normal sinus rhythm T wave abnormality, consider anterior ischemia Abnormal ECG
== END 2017-06-09 13:30 | disposition home health service (06) | DRG 552 ==
LOC: EMR 12:50 → 4W 13:18 → EDBEDREQ 14:15
DX: M47.9 Spondylosis, unspecified (principal); E87.0 Hyperosmolality and hypernatremia; F11.20 Opioid dependence, uncomplicated; G83.4 Cauda equina syndrome; M51.16 Intervertebral disc disorders with radiculopathy, lumbar region; D64.9 Anemia, unspecified; R25.2 Cramp and spasm; I10 Essential (primary) hypertension; G89.4 Chronic pain syndrome; F17.200 Nicotine dependence, unspecified, uncomplicated; E88.09 Other disorders of plasma-protein metabolism, not elsewhere classified; F41.8 Other specified anxiety disorders; M96.1 Postlaminectomy syndrome, not elsewhere classified; Z98.1 Arthrodesis status
CPT/HCPCS: 36415; 71045; 80048; 80053; 80061; 82550; 82553; 84443; 85025; 93005; 93970; 99285; J2405

== ENCOUNTER 2017-08-04 11:49 | Inpatient (IN) | payer MEDICARE, MEDICAID ==
[2017-08-04] VITALS (8 sets, daily range): BP systolic 128–206; BP diastolic 73–104
[~2017-08-04] VITALS: Ht 160 cm; Wt 63.5 kg
[~2017-08-04 11:49] MED LIST: BACLOFEN20 MG ORAL; DILAUDID1 MG/1 ML PO; GABAPENTIN300 MG ORAL; HYOSCYAMINE0.375 M1 ORAL; KADIAN30 MG PO; KLONOPIN1 MG ORAL; LOSARTAN POTASS50 MG ORAL; NORVASC10 MG ORAL; OMEPRAZOLE20 M2 ORAL; REQUIP1 MG ORAL; TOPROL XL50 MG ORAL; XARELTO10 MG ORAL
[2017-08-04] MEDS ORDERED: DILAUDID4 MG ORAL (12:09)
[2017-08-04] MEDS ORDERED: DICYCLOMINE HCL20 M1 PO (12:09)
[2017-08-04] MEDS ORDERED: KLONOPIN1 MG ORAL (12:09)
[2017-08-04] MEDS ORDERED: LEVSIN-SL0.125 MG SL (12:09)
[2017-08-04] MEDS ORDERED: BACLOFEN20 MG ORAL (12:09)
[2017-08-04] MEDS ORDERED: LOSARTAN POTASS50 MG ORAL (12:09)
[2017-08-04] MEDS ORDERED: HYDROmorphone 1mg/ml Carpuject IVP ONE ×3 (13:00→18:45)
[2017-08-04] MEDS ORDERED: Phenazopyridine 200mg tab ORAL ONE (13:15)
--- NOTE | 2017-08-04 13:44 | Emergency Room Report ---
History of Present Illness General Chief Complaint: Pain Source: Patient Present Illness HPI 52-year-old female presents to the emergency department complaining of 10 out of 10 in severity cramp in the right leg with pain radiating up into the hip times one day. Patient states that onset of her symptoms were after having x- ray imaging performed of the lumbar spine which included flexion and extension views. She denies trauma or fall. Patient reports she has a history of spinal fusion which had complications and resulted in cauda equina and she continues to have right-sided lower extremity neurological deficits since 2009. Patient reports that she daily has chronic pain and is prescribed Soma, morphine, Dilaudid and Ativan however she states that her medications have not helped her symptoms that she is currently experiencing. Patient states she did not take the oral Dilaudid this morning and she states that she took half of her prescribed Ativan. Patient reports that she is only ambulatory with assistance of a walker or caregiver. She states that she has chronic right foot drop. Patient reports that in the past she had problems with urinary retention requiring urinary catheterization however she is able to urinate on her own mostly. pt. states she did require catheterization this past Wednesday. She denies incontinence. Patient states that in the past when she has had spasm like this they usually progresses up the right side of her body up into her jaw and then down into the left side. Allergies: Coded Allergies: METHADONE (Verified Allergy, Unknown, 06/04/17) MORPHINE (Verified Allergy, Unknown, 06/04/17) PREGABALIN (Verified Allergy, Unknown, 06/04/17) Patient History Past Medical History: other - Chronic pain, hx of cauda equina syndrome. lumbar disk fusion surgery. Past Surgical History: other - Spinal fusion, SCS- implant, PSxH Narrative Spinal fusion with complication resulting in Cauda equina and residual right sided lower extremity deficit since 2009 Pertinent Family History: none Last Menstrual Period: Unk Now: No Reviewed Nursing Documentation: PMH: Agreed; PSxH: Agreed Nursing Documentation-PMH Hx Cardiac Problems: Yes Hx Hypertension: Yes Hx Cancer: No Hx Neurological Problems: Yes - Cauda equina syndrome Hx Neurologic Surgery: Yes - 2009 Spinal surgery Review of Systems All Other Systems: negative except mentioned in HPI Physical Exam Vital Signs Date Time Temp Pulse Resp B/P (MAP) Pulse Ox O2 Delivery O2 Flow Rate FiO2 3/28/18 11:54 98.4 88 22 185/94 99 Room Air 98.4 Sp02 EP Interpretation: reviewed, normal General Appearance: alert, GCS 15, moderate distress, Chronically Ill Head: normocephalic, atraumatic Eyes: bilateral eye normal inspection, bilateral eye PERRL ENT: hearing grossly normal, normal voice Neck: full range of motion, no bony tend Respiratory: lungs clear, normal breath sounds, speaking full sentences Cardiovascular #1: regular rate, rhythm, no edema, normal capillary refill Gastrointestinal: normal bowel sounds, non tender, soft Rectal: normal rectal tone, deferred, other - anal wink intact. Genitourinary: normal inspection, no CVA tenderness Musculoskeletal: back normal, gait/station normal, normal range of motion, tender - Right Leg muscle cramping. pt. unable to flex leg. tightness in the posterior thigh and calf. no erythema, no swelling, pulses intact. Neurologic: alert, oriented x3, responsive, motor strength/tone normal, sensory intact, speech normal, other - Decreased two point discrimination bilateral feet. patellar reflexes are equal bilaterally. Right foot drop noted. Upper extremity tremor noted, no ataxia., grossly normal Psychiatric: judgement/insight normal Skin: normal color, no rash, warm/dry, well hydrated Medical Decision Making PA Attestation Dr. Vazquez is my supervising Physician whom patient management has been discussed with. Diagnostic Impression: Primary Impression: Chronic pain syndrome Additional Impression: UTI (urinary tract infection) Qualified Codes: N30.01 - Acute cystitis with hematuria ER Course 52-year-old female presents to the emergency department complaining of 10 out of 10 in severity cramp in the right leg with pain radiating up into the hip times one day. Patient states that onset of her symptoms were after having x- ray imaging performed of the lumbar spine which included flexion and extension views. She denies trauma or fall. Patient reports she has a history of spinal fusion which had complications and resulted in cauda equina and she continues to have right-sided lower extremity neurological deficits since 2009. Patient reports that she daily has chronic pain and is prescribed Soma, morphine, Dilaudid and Ativan however she states that her medications have not helped her symptoms that she is currently experiencing. Patient states she did not take the oral Dilaudid this morning and she states that she took half of her prescribed Ativan. Patient reports that she is only ambulatory with assistance of a walker or caregiver. She states that she has chronic right foot drop. Patient reports that in the past she had problems with urinary retention requiring urinary catheterization however she is able to urinate on her own mostly. pt. states she did require catheterization this past Wednesday. She denies incontinence. Patient states that in the past when she has had spasm like this they usually progresses up the right side of her body up into her jaw and then down into the left side. Ddx considered but are not limited to Chronic pain, Spinal chord injury, Electrolyte abnormality, rhabdo, infection just to name a few. Vital signs: are WNL, pt. is afebrile H&PE are most consistent with hx of chronic pain syndrome presenting with muscle cramping consistent in character with previous experiences. Will check electrolytes, urine, and CK. Pt. on multiple strong opiate medications at home, will consider admission if pain is not easily controlled in the ED. ORDERS: -CBC: mild anemia -CMP: unremarkable -EK BPM NSR with T-Wave inversions in multiple leads: V1-V4- reviewed by Dr. Vazquez, scribed by ÁNGEL Palafox. -UA: Positive for UTI ED INTERVENTIONS: -1mg Dilaudid. - 1mg Ativan -200mg Pyridium PO - 25 mg Benadryl -1G Rocephin IV At this time patient continues to have pain without any relief of her symptoms, since this patient will be requiring administration of strong opiates IV and possibly additional medications feel this patient needs to be admitted. DISPOSITION: at this time pt. will be admitted to Dr. Magallon for Intractable pain. Dr. Magallon agreed to admit the pt. and to continue pt. care management. Labs Test 08/04/17 13:30 08/04/17 15:40 08/08/17 09:10 Total Bilirubin 0.2 MG/DL (0.2-1.0) Aspartate Amino Transf (AST/SGOT) 16 U/L (15-37) Alanine Aminotransferase (ALT/SGPT) 18 U/L (12-78) Alkaline Phosphatase 146 U/L (46-116) Total Creatine Kinase 186 U/L (26-308) Troponin I 0.000 ng/mL (0.000-0.056) Total Protein 6.9 G/DL (6.4-8.2) Albumin 3.6 G/DL (3.4-5.0) Globulin 3.3 g/dL Albumin/Globulin Ratio 1.1 (1.0-2.7) Urine Color Mari Urine Appearance Cloudy Urine pH 6 (4.5-8.0) Urine Specific [place] 1.010 (1.005-1.035) Urine Protein Negative (NEGATIVE) Urine Glucose (UA) Negative (NEGATIVE) Urine Ketones Negative (NEGATIVE) Urine Occult Blood 3+ (NEGATIVE) Urine Nitrite Positive (NEGATIVE) Urine Bilirubin Negative (NEGATIVE) Urine Ictotest Negative Urine Urobilinogen 1 MG/DL (0.0-1.0) Urine Leukocyte Esterase 3+ (NEGATIVE) Urine RBC 15-20 /HPF (0 - 2) Urine WBC 40-60 /HPF (0 - 2) Urine Squamous Epithelial Cells Moderate /LPF (NONE/OCC) Urine Bacteria Many /HPF (NONE) White Blood Count 7.1 K/UL (4.8-10.8) Red Blood Count 3.76 M/UL (4.20-5.40) Hemoglobin 11.1 G/DL (12.0-16.0) Hematocrit 34.5 % (37.0-47.0) Mean Corpuscular Volume 92 FL (80-99) Mean Corpuscular Hemoglobin 29.4 PG (27.0-31.0) Mean Corpuscular Hemoglobin Concent 32.1 G/DL (32.0-36.0) Red Cell Distribution Width 13.7 % (11.6-14.8) Platelet Count 259 K/UL (150-450) Mean Platelet Volume 5.3 FL (6.5-10.1) Neutrophils (%) (Auto) 69.5 % (45.0-75.0) Lymphocytes (%) (Auto) 20.2 % (20.0-45.0) Monocytes (%) (Auto) 6.9 % (1.0-10.0) Eosinophils (%) (Auto) 2.5 % (0.0-3.0) Basophils (%) (Auto) 1.0 % (0.0-2.0) Sodium Level 143 MMOL/L (136-145) Potassium Level 4.0 MMOL/L (3.5-5.1) Chloride Level 107 MMOL/L (98-107) Carbon Dioxide Level 30 MMOL/L (21-32) Anion Gap 6 mmol/L (5-15) Blood Urea Nitrogen 18 mg/dL (7-18) Creatinine 0.7 MG/DL (0.55-1.30) Estimat Glomerular Filtration Rate > 60 mL/min (>60) Glucose Level 111 MG/DL (74-106) Calcium Level 8.4 MG/DL (8.5-10.1) EKG Diagnostic Results EP Interpretation: 71 bpm Rate: normal Rhythm: NSR ST Segments: no acute changes Other Impression T-Wave inversions in multiple leads: V1-V4. ASA given to the pt in ED: No PA Scribe Text This Interpretation was scribed by ÁNGEL Palafox. Last Vital Signs Date Time Temp Pulse Resp B/P (MAP) Pulse Ox O2 Delivery O2 Flow Rate FiO2 08/04/17 11:54 98.4 88 22 185/94 99 Room Air 98.4 Disposition: ADMITTED INPATIENT Condition: Serious Nellie Palafox Aug 04, 2017 13:44
[2017-08-04] MEDS ORDERED: LORazepam Inj 2mg/ml 1ml IV ONE (13:45)
[2017-08-04 13:50] LABS: BASOPHILS % (AUTO) 0.9 % (0.0-2.0); EOSINOPHILS % (AUTO) 0.9 % (0.0-3.0); HEMOGLOBIN 11.2 G/DL (12.0-16.0); LYMPHOCYTES % (AUTO) 24.6 % (20.0-45.0); MEAN CORPUSCULAR VOLUME 92 FL (80-99); MONOCYTES % (AUTO) 6.5 % (1.0-10.0); PLATELET COUNT 245 K/UL (150-450); RED CELL DISTRIBUTION WIDTH 13.4 % (11.6-14.8); WHITE BLOOD COUNT 6.8 K/UL (4.8-10.8)
[2017-08-04 14:07] LABS: ANION GAP 8 mmol/L (5-15); BLOOD UREA NITROGEN 10 mg/dL (7-18); CALCIUM 8.3 MG/DL (8.5-10.1); CARBON DIOXIDE 29 MMOL/L (21-32); CHLORIDE 108 MMOL/L (98-107); CREATININE 0.5 MG/DL (0.55-1.30); POTASSIUM 3.8 MMOL/L (3.5-5.1); SODIUM 145 MMOL/L (136-145)
[2017-08-04 14:12] LABS: ALANINE AMINOTRANSFERASE 18 U/L (12-78); ALBUMIN 3.6 G/DL (3.4-5.0); ALBUMIN/GLOBULIN RATIO 1.1 (1.0-2.7); ALKALINE PHOSPHATASE 146 U/L (46-116); ASPARTATE AMINO TRANSFERASE 16 U/L (15-37); BILIRUBIN,TOTAL 0.2 MG/DL (0.2-1.0); CREATINE KINASE 186 U/L (26-308)
[2017-08-04] MEDS ORDERED: DiphenhydrAMINE 50mg/ml Inj IVP ONE (14:30)
[2017-08-04 16:39] LABS: APPEARANCE,URINE CLOUDY; BILIRUBIN, URINE NEGATIVE (NEGATIVE); GLUCOSE, URINE (UA) NEGATIVE (NEGATIVE); KETONES,URINE NEGATIVE (NEGATIVE); LEUKOCYTE ESTERASE ,URINE 3+ (NEGATIVE); NITRITE,URINE POSITIVE (NEGATIVE); PH,URINE 6 (4.5-8.0); PROTEIN,URINE NEGATIVE (NEGATIVE); UROBILINOGEN,URINE 1 MG/DL (0.0-1.0)
[2017-08-04 16:40] LABS: COLOR,URINE AMBER
[2017-08-04] MEDS ORDERED: cefTRIAXone 1 GM in D5W 55 ML IVPB ONE (17:45)
[2017-08-04] MEDS ORDERED: LORAZEPAM1 MG ORAL (21:36)
[2017-08-04] MEDS ORDERED: SOMA350 MG PO (21:36)
[2017-08-04] MEDS ORDERED: BENADRYL25 M3 PO (21:36)
[2017-08-04] MEDS ORDERED: LORazepam 1mg tab ORAL SCH (21:45)
[2017-08-04] MEDS ORDERED: HYDROmorphone 4mg tab ORAL PRN (22:30)
[2017-08-04] MEDS: HYDROmorphone 2 MG in NS 55 ML IVPB PRN (23:28)
[2017-08-05] VITALS (8 sets, daily range): BP systolic 142–192; BP diastolic 82–103
[2017-08-05] MEDS ORDERED: LORazepam 1mg tab ORAL PRN ×2 (00:45→06:15)
[2017-08-05] MEDS ORDERED: HYDROmorphone 4mg tab ORAL SCH (01:00)
[2017-08-05] MEDS: HYDROmorphone 2 MG in NS 55 ML IVPB PRN (03:55)
[2017-08-05] MEDS: Metoprolol Succinate XL 50mg tab ORAL SCH ×2 (08:29→09:50)
[2017-08-05] MEDS: MS Contin 15mg tab ORAL SCH ×5 (08:30→18:36)
[2017-08-05] MEDS: Xarelto 10mg tab ORAL SCH ×2 (08:30→09:51)
[2017-08-05] MEDS ORDERED: HYDROMORPHONE IVPB PRN (08:30)
[2017-08-05] MEDS ORDERED: D5W IVPB PRN (08:30)
--- NOTE | 2017-08-05 13:00 | Consultation ---
History of Present Illness General Date patient seen: Aug 05, 2017 Chief Complaint: Pain Present Illness HPI 52-year-old female presents to the hospital complaining of 10 out of 10 in severity cramp in the right leg with pain radiating up into the hip times one day. the pt has history of depression and anxiety. the pt was agitated and crying. the pt asked for IV Ativan, Dilaudid and Benadryl. The pt was not suicidal or homicidal. the pts asked more Dilaudid Allergies: Coded Allergies: METHADONE (Verified Allergy, Unknown, 06/04/17) MORPHINE (Verified Allergy, Unknown, 06/04/17) PREGABALIN (Verified Allergy, Unknown, 06/04/17) Medication History Scheduled Amlodipine Besylate (Norvasc), 10 MG ORAL DAILY, (Reported) Baclofen* (Lioresal*), 20 MG ORAL THREE TIMES A DAY, (Reported) Baclofen* (Lioresal*), 20 MG ORAL EVERY 6 HOURS, (Reported) Carisoprodol* (Soma*), 350 MG PO TID, (Reported) Clonazepam* (Klonopin*), 1 MG ORAL Q6H, (Reported) Clonazepam* (Klonopin*), 1 MG ORAL BID, (Reported) Dicyclomine Hcl (Dicyclomine Hcl), 20 MG PO FOUR TIMES A DAY, (Reported) Diphenhydramine HCl (Benadryl), 25 MG PO Q6HR, (Reported) Gabapentin* (Gabapentin*), 300 MG ORAL THREE TIMES A DAY, (Reported) Hydromorphone HCl (Dilaudid), 4 MG ORAL EVERY 4 HOURS, (Reported) Hyoscyamine* (Levsinex*), 0.125 MG ORAL EVERY 12 HOURS, (Reported) Lorazepam* (Lorazepam*), 1 MG ORAL THREE TIMES A DAY, (Reported) Losartan Potassium* (Losartan Potassium*), 50 MG ORAL DAILY, (Reported) Losartan Potassium* (Losartan Potassium*), 50 MG ORAL BID, (Reported) Metoprolol Succinate* (Toprol Xl*), 50 MG ORAL DAILY, (Reported) Omeprazole (Omeprazole), 20 MG ORAL DAILY, (Reported) Rivaroxaban (Xarelto*), 20 MG ORAL DAILY, (Reported) Ropinirole Hcl* (Requip*), 1 MG ORAL THREE TIMES A DAY, (Reported) Miscellaneous Medications Hydromorphone Hcl (Dilaudid), 4 MG PO, (Reported) Hyoscyamine Sulfate* (Levsin-Sl*), 0.125 MG SL, (Reported) Morphine Sulfate (Rosanne), 30 MG PO, (Reported) Patient History Limited by: medical condition History Provided By: Patient, Significant Other, PMD Healthcare decision maker Lukasz Gallo Resuscitation status Full Code Advanced Directive on File Past Medical/Surgical History Past Medical/Surgical History: (1) Anemia (2) Hypoalbuminemia (3) HTN (hypertension) (4) Azotemia (5) Opioid dependence (6) Hypernatremia (7) Chronic pain syndrome Review of Systems Psychiatric: Reports: prior hx, anxiety, depressed feelings Physical Exam General Appearance: no apparent distress, alert, agitated Neurologic: oriented x 3, responsive, depressed affect Last 24 Hour Vital Signs Date Time Temp Pulse Resp B/P (MAP) Pulse Ox O2 Delivery O2 Flow Rate FiO2 08/05/17 12:00 98.2 98 18 142/93 98 Room Air 98.2 08/05/17 10:50 98.2 08/05/17 10:50 98.2 08/05/17 09:50 101 192/91 08/05/17 08:53 98.3 08/05/17 08:29 101 192/91 08/05/17 08:00 98.1 101 18 192/91 100 Room Air 98.1 08/05/17 00:00 98.3 104 18 153/90 98 Room Air 98.3 08/05/17 00:00 98 Room Air 08/04/17 20:46 98.0 89 18 128/78 100 Room Air 98.0 08/04/17 20:00 99.2 83 18 182/73 98 Room Air 99.2 08/04/17 20:00 37.55663 83 18 182/73 98 Room Air 210.6 08/04/17 20:00 98 Room Air 08/04/17 19:35 187/93 08/04/17 19:34 187/93 08/04/17 19:29 66 18 187/93 08/04/17 18:56 98.4 08/04/17 18:56 197/104 08/04/17 18:28 81 22 194/74 96 Room Air 08/04/17 18:11 89 22 197/104 96 Room Air 08/04/17 17:53 201/106 08/04/17 17:00 85 22 206/84 96 Room Air 08/04/17 16:13 98.4 08/04/17 16:13 98.4 08/04/17 16:12 98.4 08/04/17 14:05 81 22 172/85 99 Room Air 08/04/17 13:28 98.4 Intake and Output 08/04/17 08/05/17 19:00 07:00 Intake Total 1000 ml 0 ml Balance 1000 ml 0 ml Intake Oral 0 ml IV Total 1000 ml # Voids 2 Laboratory Tests Test 08/04/17 13:30 08/04/17 15:40 White Blood Count 6.8 K/UL (4.8-10.8) Red Blood Count 3.70 M/UL (4.20-5.40) L Hemoglobin 11.2 G/DL (12.0-16.0) L Hematocrit 34.0 % (37.0-47.0) L Mean Corpuscular Volume 92 FL (80-99) Mean Corpuscular Hemoglobin 30.2 PG (27.0-31.0) Mean Corpuscular Hemoglobin Concent 32.9 G/DL (32.0-36.0) Red Cell Distribution Width 13.4 % (11.6-14.8) Platelet Count 245 K/UL (150-450) Mean Platelet Volume 5.5 FL (6.5-10.1) L Neutrophils (%) (Auto) 67.0 % (45.0-75.0) Lymphocytes (%) (Auto) 24.6 % (20.0-45.0) Monocytes (%) (Auto) 6.5 % (1.0-10.0) Eosinophils (%) (Auto) 0.9 % (0.0-3.0) Basophils (%) (Auto) 0.9 % (0.0-2.0) Sodium Level 145 MMOL/L (136-145) Potassium Level 3.8 MMOL/L (3.5-5.1) Chloride Level 108 MMOL/L (98-107) H Carbon Dioxide Level 29 MMOL/L (21-32) Anion Gap 8 mmol/L (5-15) Blood Urea Nitrogen 10 mg/dL (7-18) Creatinine 0.5 MG/DL (0.55-1.30) L Estimat Glomerular Filtration Rate > 60 mL/min (>60) Glucose Level 100 MG/DL (74-106) Calcium Level 8.3 MG/DL (8.5-10.1) L Total Bilirubin 0.2 MG/DL (0.2-1.0) Aspartate Amino Transf (AST/SGOT) 16 U/L (15-37) Alanine Aminotransferase (ALT/SGPT) 18 U/L (12-78) Alkaline Phosphatase 146 U/L (46-116) H Total Creatine Kinase 186 U/L (26-308) Troponin I 0.000 ng/mL (0.000-0.056) Total Protein 6.9 G/DL (6.4-8.2) Albumin 3.6 G/DL (3.4-5.0) Globulin 3.3 g/dL Albumin/Globulin Ratio 1.1 (1.0-2.7) Urine Color Mari Urine Appearance Cloudy Urine pH 6 (4.5-8.0) Urine Specific [place] 1.010 (1.005-1.035) Urine Protein Negative (NEGATIVE) Urine Glucose (UA) Negative (NEGATIVE) Urine Ketones Negative (NEGATIVE) Urine Occult Blood 3+ (NEGATIVE) H Urine Nitrite Positive (NEGATIVE) H Urine Bilirubin Negative (NEGATIVE) Urine Ictotest Negative Urine Urobilinogen 1 MG/DL (0.0-1.0) H Urine Leukocyte Esterase 3+ (NEGATIVE) H Urine RBC 15-20 /HPF (0 - 2) H Urine WBC 40-60 /HPF (0 - 2) H Urine Squamous Epithelial Cells Moderate /LPF (NONE/OCC) H Urine Bacteria Many /HPF (NONE) H Microbiology Date/Time Source Procedure Growth Status 08/04/17 15:40 Urine,Clean Catch Urine Culture - Preliminary Gram Negative Bacillus 1 Resulted Height (Feet): 5 Height (Inches): 3.00 Weight (Pounds): 140 Medications Current Medications Medications (Trade) Dose Ordered Sig/Danni Route PRN Reason Start Time Stop Time Status Last Admin Dose Admin Acetaminophen (Tylenol) 650 mg Q4H PRN ORAL Mild Pain/Temp > 100.5 08/04/17 21:45 09/03/17 21:44 Baclofen (Lioresal) 10 mg THREE TIMES A DAY ORAL 08/05/17 13:00 09/04/17 12:59 Carisoprodol (Soma) 350 mg TID ORAL 08/04/17 21:45 09/03/17 21:44 08/05/17 09:51 Chlorhexidine Gluconate (Margot-Hex 2%) 1 applic DAILY@2000 TOPIC 08/05/17 20:00 09/04/17 19:59 Clonazepam (KlonoPIN) 1 mg BEDTIME ORAL 08/05/17 21:00 08/12/17 20:59 Diphenhydramine HCl (Benadryl) 25 mg Q6H PRN ORAL Itching 08/04/17 23:45 09/03/17 23:44 08/05/17 09:51 Gabapentin (Neurontin) 300 mg THREE TIMES A DAY ORAL 08/05/17 13:00 09/04/17 12:59 Hydromorphone HCl (Dilaudid) 2 mg Q4H PRN IVP PAIN 4-10 08/05/17 12:15 08/12/17 12:14 Lorazepam (Ativan) 1 mg Q8H PRN ORAL For Anxiety 08/05/17 06:15 08/12/17 06:14 Metoprolol Succinate (Toprol XL) 50 mg DAILY ORAL 08/05/17 09:00 09/04/17 08:59 08/05/17 09:50 Morphine Sulfate (MS Contin) 30 mg TID ORAL 08/05/17 09:00 08/12/17 08:59 08/05/17 09:51 Rivaroxaban (Xarelto) 20 mg DAILY ORAL 08/05/17 09:00 09/04/17 08:59 08/05/17 09:51 Ropinirole HCl (Requip) 1 mg THREE TIMES A DAY ORAL 08/04/17 21:45 09/03/17 21:44 08/05/17 09:50 Assessment/Plan Status: stable Assessment/Plan mdd anxiety d/o -Flexeril -Neurontin -Ativan -Klonopin -d/w Alexia Lazo M.D. Aug 05, 2017 13:00
[2017-08-05] MEDS: LORazepam Inj 2mg/ml 1ml IV PRN ×3 (14:03→23:33)
[2017-08-05] MEDS: Dyna-Hex 2% Top Sol 2oz TOPIC SCH (20:20)
[2017-08-06] VITALS: BP 155/87
--- NOTE | 2017-08-06 04:01 | History and Physical Report ---
DATE OF ADMISSION: 08/04/[address] Ernesto Magallon. This is Dr. Ernesto Magallon's patient. HISTORY OF PRESENT ILLNESS: The patient comes with intractable back pain. The patient has chronic back pain, has stimulator in the spine, has lower extremity tremors and upper extremity tremors as well, has also dysuria, status post ____ and is admitted for intractable pain. The patient does have nausea. Denies any itching. Denies fever or chills. Denies chest pain. Denies shortness of breath. Denies orthopnea. Denies diplopia. PAST MEDICAL HISTORY: Significant for intractable back pain, hypertension, anxiety, neuropathy, GERD, tremors, chronic pain syndrome, and opioid dependence. PAST SURGICAL HISTORY: Significant for spinal fusion, hysterectomy, partial small bowel removal, hemorrhoidectomy, eye surgery, and stimulator placed in the spine. ALLERGIES: Lyrica, methadone, and Toradol. MEDICATIONS: Soma, Klonopin, Benadryl, gabapentin, Dilaudid, losartan, metoprolol, omeprazole, and Requip. FAMILY HISTORY: Noncontributory. SOCIAL HISTORY: The patient is a smoker. Denies history of drugs or alcohol abuse. REVIEW OF SYSTEMS: HEENT: Denies headaches. RESPIRATORY: Denies shortness of breath. Denies cough. CARDIOVASCULAR: Denies chest pain. Denies orthopnea. GASTROINTESTINAL: Does have generalized pain. Denies nausea, vomiting, or diarrhea. EXTREMITIES: Reports generalized pain. . PHYSICAL EXAMINATION: VITAL SIGNS: Temperature 98.1, pulse 101, and blood pressure 192/91. HEENT: PERRLA. NECK: Supple. No lymphadenopathy. CHEST: Clear to auscultation. GASTROINTESTINAL: Positive bowel sounds. Abdomen is soft. No organomegaly. EXTREMITIES: No edema. NEUROLOGIC: Reflexes are equal on both sides. Does have upper extremity tremor and generalized weakness. LABORATORY DATA: WBC 6.8, hemoglobin 11.2, and platelets 345. Sodium 145, potassium 3.8, BUN 10, creatinine 0.5, and glucose 100. ASSESSMENT AND PLAN: Intractable pain. The patient insisted on getting IV Dilaudid push. She wants an IV push and Dilaudid. She has been on pain medications for many years and multiple pain medications. Dr. Singh consulted to manage this complex patient with dependence on opioids. Dr. Dietrich is also consulted as well for her anxiety and psychiatric issues as well. We will follow the patient. We will sign out to Dr. Ernesto Magallon when he comes back shortly since she is his patient. Erin Villanueva M.D. DR: Ced JOB#: [id number] CC:
[2017-08-06] MEDS: LORazepam Inj 2mg/ml 1ml IV PRN ×3 (04:03→20:53)
[2017-08-06 08:00] VITALS: BP 160/91
--- NOTE | 2017-08-06 08:50 | Diagnostic Imaging Report ---
APPROVED REPORT CPT Code: 29227 Present Symptoms Lower Extremity Pain: Bilateral BILATERAL: Imaging reveals a patent deep venous system bilaterally. There is no evidence of thrombus within the femoral, popliteal or tibial segments. The greater saphenous veins are also within normal limits. Doppler indicates normal spontaneous flow within these segments.
[2017-08-06 09:30] VITALS: BP 152/81
[2017-08-06] MEDS: MS Contin 15mg tab ORAL SCH ×3 (09:34→18:37)
[2017-08-06 12:00] VITALS: BP 156/97
[2017-08-06 16:40] VITALS: BP 165/89
[2017-08-06 20:00] VITALS: BP 176/95
--- NOTE | 2017-08-06 20:11 | General Progress Note ---
Subjective Allergies: Coded Allergies: METHADONE (Verified Allergy, Unknown, 06/04/17) MORPHINE (Verified Allergy, Unknown, 06/04/17) PREGABALIN (Verified Allergy, Unknown, 06/04/17) Subjective chronic pain dependence on opiods pain is improving Objective Last 24 Hour Vital Signs Date Time Temp Pulse Resp B/P (MAP) Pulse Ox O2 Delivery O2 Flow Rate FiO2 08/06/17 20:00 99.3 80 20 176/95 96 99.3 08/06/17 19:34 98.9 08/06/17 19:34 98.9 08/06/17 18:37 98.9 08/06/17 18:36 98.9 08/06/17 16:40 98.9 80 20 165/89 100 Room Air 98.9 08/06/17 15:07 98.9 08/06/17 14:04 98.9 08/06/17 14:04 98.9 08/06/17 12:00 97.9 71 20 156/97 99 Room Air 97.9 08/06/17 09:35 98.9 08/06/17 09:34 98.9 08/06/17 09:30 73 152/81 Room Air 08/06/17 08:00 98.0 73 20 160/91 96 Room Air 98.0 08/06/17 00:00 98.9 80 19 155/87 96 Room Air 98.9 Intake and Output 08/05/17 08/06/17 19:00 07:00 Intake Total 580 ml 120 ml Output Total 1100 ml Balance -520 ml 120 ml Intake Oral 580 ml 120 ml Output Urine Total 1100 ml # Voids 2 Height (Feet): 5 Height (Inches): 3.00 Weight (Pounds): 140 Erin Villanueva MD Aug 06, 2017 20:11
[2017-08-06] MEDS: Dyna-Hex 2% Top Sol 2oz TOPIC SCH (20:53)
[2017-08-07] VITALS (7 sets, daily range): BP systolic 155–194; BP diastolic 93–122
[2017-08-07] MEDS: LORazepam Inj 2mg/ml 1ml IV PRN ×4 (01:42→20:40)
[2017-08-07] MEDS: Xarelto 10mg tab ORAL SCH (08:39)
[2017-08-07] MEDS: Metoprolol Succinate XL 50mg tab ORAL SCH (08:40)
[2017-08-07] MEDS: MS Contin 15mg tab ORAL SCH ×3 (10:20→17:41)
[2017-08-07] MEDS: Dyna-Hex 2% Top Sol 2oz TOPIC SCH (20:40)
--- NOTE | 2017-08-07 21:06 | General Progress Note ---
Assessment/Plan Problem List: (1) Azotemia ICD Codes: R79.89 - Other specified abnormal findings of blood chemistry SNOMED: 734569923 (2) Opioid dependence ICD Codes: F11.20 - Opioid dependence, uncomplicated SNOMED: 56350057 (3) Anemia ICD Codes: D64.9 - Anemia, unspecified SNOMED: 233996278 (4) Hypoalbuminemia ICD Codes: E88.09 - Other disorders of plasma-protein metabolism, not elsewhere classified SNOMED: 235473860 (5) Chronic pain syndrome ICD Codes: G89.4 - Chronic pain syndrome SNOMED: 449004326 (6) HTN (hypertension) ICD Codes: I10 - Essential (primary) hypertension SNOMED: 86358095 (7) Muscle spasm ICD Codes: M62.838 - Other muscle spasm SNOMED: 17787240, 86107415 Status: progressing Assessment/Plan afebrile chronic pain syndrome htn azotemia covering for dr carol drake Subjective ROS Limited/Unobtainable: Yes Allergies: Coded Allergies: METHADONE (Verified Allergy, Unknown, 06/04/17) MORPHINE (Verified Allergy, Unknown, 06/04/17) PREGABALIN (Verified Allergy, Unknown, 06/04/17) Subjective chronic pain dependence on opiods pain is improving Objective Last 24 Hour Vital Signs Date Time Temp Pulse Resp B/P (MAP) Pulse Ox O2 Delivery O2 Flow Rate FiO2 08/07/17 20:00 98.5 70 20 156/94 98 98.5 08/07/17 16:00 97.5 95 18 158/114 97 Room Air 97.5 08/07/17 12:00 98.0 75 18 182/97 97 Room Air 98.0 08/07/17 09:35 98.4 96 20 155/115 98 Room Air 98.4 08/07/17 09:11 98.4 08/07/17 09:11 98.4 08/07/17 08:40 111 194/122 08/07/17 08:00 98.4 111 21 194/122 98 Room Air 98.4 08/07/17 04:29 98.8 08/07/17 04:00 98.4 77 19 165/93 77 Room Air 98.4 08/07/17 00:00 98.8 79 20 169/97 98 98.8 Intake and Output 08/06/17 08/07/17 19:00 07:00 Intake Total 720 ml 360 ml Output Total 801 ml Balance 720 ml -441 ml Intake Oral 720 ml 360 ml Output Urine Total 800 ml Stool Total 1 ml # Voids 2 4 Height (Feet): 5 Height (Inches): 3.00 Weight (Pounds): 140 Neck: supple Cardiovascular: normal rate Respiratory/Chest: lungs clear Erin Villanueva MD Aug 07, 2017 21:06
[2017-08-08] VITALS: BP 142/91
[2017-08-08] MEDS: LORazepam Inj 2mg/ml 1ml IV PRN ×4 (01:37→19:36)
[2017-08-08 04:00] VITALS: BP 152/97
[2017-08-08 08:00] VITALS: BP 164/94
[2017-08-08] MEDS: Metoprolol Succinate XL 50mg tab ORAL SCH ×2 (08:41→18:25)
[2017-08-08 09:44] LABS: EOSINOPHILS % (AUTO) 2.5 % (0.0-3.0); HEMATOCRIT 34.5 % (37.0-47.0); HEMOGLOBIN 11.1 G/DL (12.0-16.0); LYMPHOCYTES % (AUTO) 20.2 % (20.0-45.0); MEAN CORPUSCULAR VOLUME 92 FL (80-99); MONOCYTES % (AUTO) 6.9 % (1.0-10.0); NEUTROPHILS % (AUTO) 69.5 % (45.0-75.0); PLATELET COUNT 259 K/UL (150-450); RED BLOOD COUNT 3.76 M/UL (4.20-5.40); RED CELL DISTRIBUTION WIDTH 13.7 % (11.6-14.8); WHITE BLOOD COUNT 7.1 K/UL (4.8-10.8)
[2017-08-08 09:57] LABS: ANION GAP 6 mmol/L (5-15); BLOOD UREA NITROGEN 18 mg/dL (7-18); CALCIUM 8.4 MG/DL (8.5-10.1); CARBON DIOXIDE 30 MMOL/L (21-32); CHLORIDE 107 MMOL/L (98-107); CREATININE 0.7 MG/DL (0.55-1.30); SODIUM 143 MMOL/L (136-145)
[2017-08-08] MEDS: Xarelto 10mg tab ORAL SCH (10:41)
[2017-08-08] MEDS: MS Contin 15mg tab ORAL SCH ×3 (10:41→18:26)
--- NOTE | 2017-08-08 11:57 | Neurology Progress Note ---
Interim History Interim History ROS Limited/Unobtainable: Yes Objective Physical Exam Last Vital Signs Date Time Temp Pulse Resp B/P (MAP) Pulse Ox O2 Delivery O2 Flow Rate FiO2 08/08/17 08:41 64 164/94 08/08/17 08:00 98.2 21 97 98.2 08/07/17 16:00 Room Air Laboratory Tests Test 08/08/17 09:10 White Blood Count 7.1 K/UL (4.8-10.8) Red Blood Count 3.76 M/UL (4.20-5.40) L Hemoglobin 11.1 G/DL (12.0-16.0) L Hematocrit 34.5 % (37.0-47.0) L Mean Corpuscular Volume 92 FL (80-99) Mean Corpuscular Hemoglobin 29.4 PG (27.0-31.0) Mean Corpuscular Hemoglobin Concent 32.1 G/DL (32.0-36.0) Red Cell Distribution Width 13.7 % (11.6-14.8) Platelet Count 259 K/UL (150-450) Mean Platelet Volume 5.3 FL (6.5-10.1) L Neutrophils (%) (Auto) 69.5 % (45.0-75.0) Lymphocytes (%) (Auto) 20.2 % (20.0-45.0) Monocytes (%) (Auto) 6.9 % (1.0-10.0) Eosinophils (%) (Auto) 2.5 % (0.0-3.0) Basophils (%) (Auto) 1.0 % (0.0-2.0) Sodium Level 143 MMOL/L (136-145) Potassium Level 4.0 MMOL/L (3.5-5.1) Chloride Level 107 MMOL/L (98-107) Carbon Dioxide Level 30 MMOL/L (21-32) Anion Gap 6 mmol/L (5-15) Blood Urea Nitrogen 18 mg/dL (7-18) Creatinine 0.7 MG/DL (0.55-1.30) Estimat Glomerular Filtration Rate > 60 mL/min (>60) Glucose Level 111 MG/DL (74-106) H Calcium Level 8.4 MG/DL (8.5-10.1) L Impression/Recommendations Status: progressing Recommendations #[id number] MITUL MILTON Aug 08, 2017 11:57
[2017-08-08 12:03] VITALS: BP 163/101
--- NOTE | 2017-08-08 13:40 | Consultation ---
Consult Note Consult Note asked to gely for bp management 52-year-old female presents to the emergency department complaining of 10 out of 10 in severity cramp in the right leg with pain radiating up into the hip times one day. Patient states that onset of her symptoms were after having x- ray imaging performed of the lumbar spine which included flexion and extension views. She denies trauma or fall. Patient reports she has a history of spinal fusion which had complications and resulted in cauda equina and she continues to have right-sided lower extremity neurological deficits since 2009. Patient reports that she daily has chronic pain and is prescribed Soma, morphine, Dilaudid and Ativan however she states that her medications have not helped her symptoms that she is currently experiencing. Patient states she did not take the oral Dilaudid this morning and she states that she took half of her prescribed Ativan. Patient reports that she is only ambulatory with assistance of a walker or caregiver. She states that she has chronic right foot drop. Patient reports that in the past she had problems with urinary retention requiring urinary catheterization however she is able to urinate on her own mostly. pt. states she did require catheterization this past Wednesday. She denies incontinence. Patient states that in the past when she has had spasm like this they usually progresses up the right side of her body up into her jaw and then down into the left side. Allergies: Coded Allergies: METHADONE (Verified Allergy, Unknown, 06/04/17) MORPHINE (Verified Allergy, Unknown, 06/04/17) PREGABALIN (Verified Allergy, Unknown, 06/04/17) Patient History Past Medical History: other - Chronic pain, hx of cauda equina syndrome. lumbar disk fusion surgery. Past Surgical History: other - Spinal fusion, SCS- implant, PSxH Narrative Spinal fusion with complication resulting in Cauda equina and residual right sided lower extremity deficit since 2009 Hx Cardiac Problems: Yes Hx Hypertension: Yes Hx Neurological Problems: Yes - Cauda equina syndrome Hx Neurologic Surgery: Yes - 2010 Spinal surgery examined interviewed Assessment/Plan HTN OOC Anemia UTI Chronic Pain Plan: Add Norvasc Pain management start rocephin for e coli uti check labs per orders LESLY DUKE Aug 08, 2017 13:40
[2017-08-08] MEDS ORDERED: HydrALAZINE 25mg tab ORAL PRN (13:45)
[2017-08-08] MEDS: cefTRIAXone 1 GM in D5W 55 ML IVPB SCH (15:02)
[2017-08-08 16:04] VITALS: BP 141/96
--- NOTE | 2017-08-08 18:10 | General Progress Note ---
Assessment/Plan Problem List: (1) Azotemia ICD Codes: R79.89 - Other specified abnormal findings of blood chemistry SNOMED: 550555824 (2) Opioid dependence ICD Codes: F11.20 - Opioid dependence, uncomplicated SNOMED: 72012432 (3) Anemia ICD Codes: D64.9 - Anemia, unspecified SNOMED: 742391447 (4) Hypoalbuminemia ICD Codes: E88.09 - Other disorders of plasma-protein metabolism, not elsewhere classified SNOMED: 098886551 (5) Chronic pain syndrome ICD Codes: G89.4 - Chronic pain syndrome SNOMED: 079726513 (6) HTN (hypertension) ICD Codes: I10 - Essential (primary) hypertension SNOMED: 18193456 (7) Muscle spasm ICD Codes: M62.838 - Other muscle spasm SNOMED: 16656981, 97610647 Assessment/Plan afebrile chronic pain syndrome no acute events reviewed chart and labs Subjective Allergies: Coded Allergies: METHADONE (Verified Allergy, Unknown, 06/04/17) MORPHINE (Verified Allergy, Unknown, 06/04/17) PREGABALIN (Verified Allergy, Unknown, 06/04/17) Subjective chronic pain dependence on opiods pain is improving Objective Last 24 Hour Vital Signs Date Time Temp Pulse Resp B/P (MAP) Pulse Ox O2 Delivery O2 Flow Rate FiO2 08/08/17 16:04 98.6 75 20 141/96 97 Room Air 98.6 08/08/17 15:02 78 160/88 08/08/17 12:03 98.5 87 20 163/101 99 Room Air 98.5 08/08/17 08:41 64 164/94 08/08/17 08:00 98.2 64 21 164/94 97 98.2 08/08/17 04:00 97.3 75 20 152/97 97 97.3 08/08/17 00:00 98.1 80 20 142/91 96 98.1 08/07/17 20:00 98.5 70 20 156/94 98 98.5 Intake and Output 08/07/17 08/08/17 19:00 07:00 Intake Total 1200 ml Balance 1200 ml Other 1200 ml # Voids 3 3 # Bowel Movements 1 Laboratory Tests 08/08/17 09:10: White Blood Count 7.1, Red Blood Count 3.76L, Hemoglobin 11.1L, Hematocrit 34.5L , Mean Corpuscular Volume 92, Mean Corpuscular Hemoglobin 29.4, Mean Corpuscular Hemoglobin Concent 32.1, Red Cell Distribution Width 13.7, Platelet Count 259, Mean Platelet Volume 5.3L, Neutrophils (%) (Auto) 69.5, Lymphocytes ( %) (Auto) 20.2, Monocytes (%) (Auto) 6.9, Eosinophils (%) (Auto) 2.5, Basophils (%) (Auto) 1.0, Sodium Level 143, Potassium Level 4.0, Chloride Level 107, Carbon Dioxide Level 30, Anion Gap 6, Blood Urea Nitrogen 18, Creatinine 0.7, Estimat Glomerular Filtration Rate > 60, Glucose Level 111H, Calcium Level 8.4L , C-Reactive Protein, Quantitative < 0.4 Height (Feet): 5 Height (Inches): 3.00 Weight (Pounds): 140 Erin Villanueva MD Aug 08, 2017 18:10
[2017-08-08 20:00] VITALS: BP 151/84
[2017-08-08] MEDS: Dyna-Hex 2% Top Sol 2oz TOPIC SCH (20:00)
[2017-08-09] VITALS: BP 167/132
[2017-08-09] MEDS: LORazepam Inj 2mg/ml 1ml IV PRN ×6 (00:09→23:34)
--- NOTE | 2017-08-09 00:45 | Consultation ---
DATE OF CONSULTATION: 08/08/2017 NOTE: POOR AUDIO NEUROLOGICAL CONSULTATION CONSULTING PHYSICIAN: Atilio Mckeon M.D. REQUESTING PHYSICIAN: Ernesto Magallon D.O. HISTORY OF PRESENT ILLNESS: This is a 52-year-old female seen in neurological consultation to evaluate a persistent intractable spasmodic pain. The patient, who is suffering from chronic pain syndrome, was admitted through emergency room complaining of severe violent cramps predominantly right lower extremity, which on a scale of 1 to 10 was 10, spasm from lower extremities spread to low upper back and neck. The patient indicated that symptoms were provoked by having an x-ray of lumbar spine where she was having flexion and extension views. The patient informs me that her initial issues with her back appeared several years ago and in 2009, she underwent an L4 through S1 laminectomy, spinal fusion. There were several complications including cauda equina syndrome, right footdrop, and she was diagnosed with arachnoiditis. She was having abnormal gait and frequent falls, continuous chronic pain, being on opiates and muscle relaxants predominantly Soma, morphine, Dilaudid, and Ativan. Four years ago, she had a neurostimulator placed. This was given to her "to keep from falling." She continued to have intermittent at least a couple times a month severe painful cramps, muscle spasms involving predominantly right lower extremity that would last from few minutes to 5 to 6 hours. 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 She developed a "tunnel vision on her left eye, with poor vision she requires assistance when ambulating. She is unable to drive. The patient has intermittent urinary retention, at times will require urinary catheterization. PAST MEDICAL HISTORY: History of hypertension, anxiety and depression, right eye surgery, status post lumbar spinal fusion, lumbar spinal neurostimulator in place, history of GERD, and hand tremor. ALLERGIES: The patient has several allergies including methadone, morphine, and Lyrica. MEDICATIONS: Treatment prior to admission included baclofen 20 mg t.i.d., Norvasc, Soma 350 mg t.i.d., Klonopin 1 mg q.6 h., dicyclomine tablets, Benadryl, gabapentin 300 mg t.i.d., Dilaudid 4 mg p.o. q.4 h. p.r.n., , lorazepam 1 mg t.i.d., losartan, metoprolol, morphine 30 mg extended release daily, omeprazole, Xarelto 20 mg daily, and Requip 1 mg t.i.d. Following current admission, the patient remained on her treatment. We are adjusting baclofen being "ineffective," the patient refusing it. She is on Dilaudid 2 mg IV push q.4 h. p.r.n. for pain and lorazepam 2 mg q.4 h. p.r.n. anxiety, metoprolol, and morphine MS 30 mg t.i.d. Following current admission, there was imaging taken including venous duplex study with no evidence of thrombi. Laboratory work included mild anemia, hemoglobin 11.2, hematocrit 34.0. Chemistry panel with calcium 8.3. Y7daabffc phosphatase 146. Normal troponin. Urinalysis 40 to 60 wbc's and 15 to 20 rbc's. SOCIAL HISTORY: Lives with her family. She is providing herself with all activities of daily living except help with bathing. She is a smoker, but no alcohol or drug abuse. FAMILY HISTORY: Noncontributory. REVIEW OF SYSTEMS: Severe intermittent cramping, right leg, sensation of being frozen from waist down, right footdrop, persistent low back pain, anxiety, and urinary retention. PHYSICAL EXAMINATION: GENERAL: This is a well-developed and well-nourished female, who was found to be lying in bed, appears somewhat uncomfortable complaining of pain and freezing from waist down. During examination, the patient spontaneously developed severe muscle spasm, which was palpated and identified as right thigh muscles. Peripheral pulses 1+ symmetric. MENTAL STATUS: She is alert and oriented x3 with no evidence of aphasia or apraxia. Cognitive function normal. CRANIAL NERVE II: There is a right eye prosthesis. Left eye visual montero limited on lateral gaze. Fundi poorly visualized. CRANIAL NERVE V: Normal corneal responses. CRANIAL NERVE VII: No gross asymmetry. CRANIAL NERVE VIII: Normal hearing. CRANIAL NERVES IX THROUGH XII: Tongue is in midline. Symmetric palate elevation. MOTOR EXAMINATION: Normal muscle tone and strength in both upper extremities with the resting tremor of both hands, more in the right. The patient was antalgic when tested in her lower extremities, but she was able to lift left arm against the gravity briefly. She was trying to lift right leg, but this will produce severe pain and spasm in the right thigh region. She has right footdrop. Deep tendon reflexes 1+ both upper extremities, 2+ both lower extremities. Absent both ankle jerks. Plantar responses flexor. SENSORY EXAMINATION: Inconsistent decrease in pin sensation, patchy distribution in both lower extremities and both upper extremities. GAIT: Not tested. IMPRESSION: 1. Chronic pain syndrome, opiate and benzodiazepine dependent, exacerbation. 2. Urinary tract infection. 3. Hypertension, poor control. 4. Anxiety and depression. 5. Status post lumbar spine fusion surgery with persistent severe low back pain and intermittent muscle spasms in both lower extremities as well as right footdrop. 6. Status post neurostimulator placement. RECOMMENDATION: The patient with chronic pain and maintained on large doses of opiates and large benzodiazepines, presenting now with exacerbation of pain very likely related to underlying urinary tract infection. The patient to be started on IV fluids and antibiotics to cover UTI. The patient will need pain management evaluation to manage and adjust her opiates and benzodiazepines. Meanwhile, increase Neurontin up 300 mg q.i.d., she titrated. Consider tizanidine 4 mg t.i.d. for muscle relaxation. Thank you for allowing me to see this interesting patient in neurological consultation. Atilio Mckeon M.D. DR: Zeenat JOB#: [id number] CC:
[2017-08-09 04:00] VITALS: BP 161/84
[2017-08-09 06:32] LABS: BASOPHILS % (AUTO) 1.2 % (0.0-2.0); EOSINOPHILS % (AUTO) 2.1 % (0.0-3.0); HEMATOCRIT 35.3 % (37.0-47.0); HEMOGLOBIN 11.2 G/DL (12.0-16.0); LYMPHOCYTES % (AUTO) 24.2 % (20.0-45.0); MEAN CORPUSCULAR VOLUME 93 FL (80-99); MONOCYTES % (AUTO) 8.3 % (1.0-10.0); NEUTROPHILS % (AUTO) 64.2 % (45.0-75.0); PLATELET COUNT 260 K/UL (150-450); WHITE BLOOD COUNT 7.6 K/UL (4.8-10.8)
[2017-08-09 07:59] LABS: ALANINE AMINOTRANSFERASE 17 U/L (12-78); ALBUMIN 3.1 G/DL (3.4-5.0); ALBUMIN/GLOBULIN RATIO 0.9 (1.0-2.7); ALKALINE PHOSPHATASE 132 U/L (46-116); ANION GAP 9 mmol/L (5-15); ASPARTATE AMINO TRANSFERASE 11 U/L (15-37); BILIRUBIN,TOTAL < 0.1 MG/DL (0.2-1.0); BLOOD UREA NITROGEN 20 mg/dL (7-18); CALCIUM 8.3 MG/DL (8.5-10.1); CARBON DIOXIDE 26 MMOL/L (21-32); CHLORIDE 110 MMOL/L (98-107); CHOLESTEROL 174 MG/DL (< 200); CREATININE 0.7 MG/DL (0.55-1.30); FERRITIN 9 NG/ML (8-388); GAMMA GLUTAMYL TRANSPEPTIDASE 30 U/L (5-85); HDL CHOLESTEROL 88 MG/DL (40-60); PHOSPHORUS 3.7 MG/DL (2.5-4.9); POTASSIUM 3.8 MMOL/L (3.5-5.1); SODIUM 144 MMOL/L (136-145); TRIGLYCERIDES 55 MG/DL (30-150)
[2017-08-09 08:00] VITALS: BP 155/84
[2017-08-09 08:18] LABS: % IRON SATURATION 10 % (15-50); IRON 36 ug/dL (50-175); TOTAL IRON BINDING CAPACITY 355 ug/dL (250-450)
[2017-08-09] MEDS: MS Contin 15mg tab ORAL SCH ×4 (08:53→18:10)
[2017-08-09] MEDS: Metoprolol Succinate XL 50mg tab ORAL SCH ×2 (08:54→18:10)
[2017-08-09] MEDS: Xarelto 10mg tab ORAL SCH ×2 (08:54→10:16)
--- NOTE | 2017-08-09 10:19 | General Progress Note ---
Assessment/Plan Problem List: (1) Azotemia ICD Codes: R79.89 - Other specified abnormal findings of blood chemistry SNOMED: 473521220 (2) Opioid dependence ICD Codes: F11.20 - Opioid dependence, uncomplicated SNOMED: 22001947 (3) Anemia ICD Codes: D64.9 - Anemia, unspecified SNOMED: 959612308 (4) Hypoalbuminemia ICD Codes: E88.09 - Other disorders of plasma-protein metabolism, not elsewhere classified SNOMED: 218700261 (5) HTN (hypertension) ICD Codes: I10 - Essential (primary) hypertension SNOMED: 61448958 (6) Muscle spasm ICD Codes: M62.838 - Other muscle spasm SNOMED: 32757766, 17279996 (7) Chronic pain syndrome ICD Codes: G89.4 - Chronic pain syndrome SNOMED: 372864839 (8) pain Status: stable, progressing, tolerating diet Assessment/Plan ot pt diet pain control cbc bmp in am pain eval Subjective Constitutional: Reports: weakness Allergies: Coded Allergies: METHADONE (Verified Allergy, Unknown, 06/04/17) MORPHINE (Verified Allergy, Unknown, 06/04/17) PREGABALIN (Verified Allergy, Unknown, 06/04/17) All Systems: reviewed and negative except above Subjective c/o leg and abd pain 11/16 Objective Last 24 Hour Vital Signs Date Time Temp Pulse Resp B/P (MAP) Pulse Ox O2 Delivery O2 Flow Rate FiO2 08/09/17 09:41 98.8 08/09/17 09:41 98.8 08/09/17 09:41 98.8 08/09/17 09:11 98.8 08/09/17 08:54 100 161/84 08/09/17 08:54 100 161/84 08/09/17 08:54 98.8 08/09/17 08:53 98.8 08/09/17 04:00 98.8 100 20 161/84 96 98.8 08/09/17 00:09 167/132 08/09/17 00:00 98.4 97 20 167/132 100 98.4 08/08/17 20:00 98.6 77 20 151/84 98 98.6 08/08/17 18:25 76 169/84 08/08/17 16:04 98.6 75 20 141/96 97 Room Air 98.6 08/08/17 15:02 78 160/88 08/08/17 12:03 98.5 87 20 163/101 99 Room Air 98.5 Intake and Output 08/08/17 08/09/17 19:00 07:00 Intake Total 1255 ml Balance 1255 ml Intake Oral 1200 ml IV Total 55 ml # Voids 3 # Bowel Movements 1 Laboratory Tests 08/09/17 05:25: White Blood Count 7.6, Red Blood Count 3.80L, Hemoglobin 11.2L, Hematocrit 35.3L , Mean Corpuscular Volume 93, Mean Corpuscular Hemoglobin 29.5, Mean Corpuscular Hemoglobin Concent 31.7L, Red Cell Distribution Width 14.0, Platelet Count 260, Mean Platelet Volume 5.3L, Neutrophils (%) (Auto) 64.2, Lymphocytes (%) (Auto) 24.2, Monocytes (%) (Auto) 8.3, Eosinophils (%) (Auto) 2.1, Basophils (%) (Auto) 1.2, Sodium Level 144, Potassium Level 3.8, Chloride Level 110H, Carbon Dioxide Level 26, Anion Gap 9, Blood Urea Nitrogen 20H, Creatinine 0.7, Estimat Glomerular Filtration Rate > 60, Glucose Level 147H, Hemoglobin A1c 7.0H, Uric Acid 3.7, Calcium Level 8.3L, Phosphorus Level 3.7, Magnesium Level 1.8, Iron Level 36L, Total Iron Binding Capacity 355, Percent Iron Saturation 10L, Unsaturated Iron Binding 319, Ferritin 9, Total Bilirubin < 0.1L, Gamma Glutamyl Transpeptidase 30, Aspartate Amino Transf (AST/SGOT) 11L , Alanine Aminotransferase (ALT/SGPT) 17, Alkaline Phosphatase 132H, Troponin I 0.000, Pro-B-Type Natriuretic Peptide 15, Total Protein 6.7, Albumin 3.1L, Globulin 3.6, Albumin/Globulin Ratio 0.9L, Triglycerides Level 55, Cholesterol Level 174, LDL Cholesterol 71, HDL Cholesterol 88H, Cholesterol/HDL Ratio 2.0L, Vitamin B12 Level 309, Folate 7.2L, Thyroid Stimulating Hormone (TSH) 1.183 Height (Feet): 5 Height (Inches): 3.00 Weight (Pounds): 140 EENT: normal ENT inspection Neck: normal alignment Cardiovascular: normal peripheral pulses, normal rate, regular rhythm Respiratory/Chest: chest wall non-tender, lungs clear, normal breath sounds Abdomen: normal bowel sounds, non tender, soft Extremities: normal inspection Edema: no edema noted Arm (L), no edema noted Arm (R), no edema noted Leg (L), no edema noted Leg (R), no edema noted Pedal (L), no edema noted Pedal (R), no edema noted Generalized Neurologic: responsive, motor weakness Skin: normal pigmentation, warm/dry JUAN FRANCISCO OCAMPO Aug 09, 2017 10:19
[2017-08-09] MEDS ORDERED: Lisinopril 10mg tab ORAL ONE (11:00)
[2017-08-09 12:00] VITALS: BP 123/83
--- NOTE | 2017-08-09 12:20 | General Progress Note ---
Assessment/Plan Status: stable Assessment/Plan opioid dependence anxiety d/o mdd the pt is refusing pain meds adjustment. -Flexeril -Neurontin -Ativan -Klonopin -d/w nurse Subjective Date patient seen: Aug 06, 2017 Neurologic/Psychiatric: Reports: anxiety, depressed, emotional problems Allergies: Coded Allergies: METHADONE (Verified Allergy, Unknown, 06/04/17) MORPHINE (Verified Allergy, Unknown, 06/04/17) PREGABALIN (Verified Allergy, Unknown, 06/04/17) Subjective the pt is med seeking and agitated the pt was seen on wednesday and i spoke with male friend. the pain specialist was unavailable Objective Last 24 Hour Vital Signs Date Time Temp Pulse Resp B/P (MAP) Pulse Ox O2 Delivery O2 Flow Rate FiO2 08/09/17 10:17 98.8 08/09/17 09:41 98.8 08/09/17 09:41 98.8 08/09/17 09:41 98.8 08/09/17 09:11 98.8 08/09/17 08:54 100 161/84 08/09/17 08:54 100 161/84 08/09/17 08:54 98.8 08/09/17 08:53 98.8 08/09/17 08:00 98.6 88 15 155/84 97 98.6 08/09/17 04:00 98.8 100 20 161/84 96 98.8 08/09/17 00:09 167/132 08/09/17 00:00 98.4 97 20 167/132 100 98.4 08/08/17 20:00 98.6 77 20 151/84 98 98.6 08/08/17 18:25 76 169/84 08/08/17 16:04 98.6 75 20 141/96 97 Room Air 98.6 08/08/17 15:02 78 160/88 Intake and Output 08/08/17 08/09/17 19:00 07:00 Intake Total 1255 ml Balance 1255 ml Intake Oral 1200 ml IV Total 55 ml # Voids 3 # Bowel Movements 1 Laboratory Tests 08/09/17 05:25: White Blood Count 7.6, Red Blood Count 3.80L, Hemoglobin 11.2L, Hematocrit 35.3L , Mean Corpuscular Volume 93, Mean Corpuscular Hemoglobin 29.5, Mean Corpuscular Hemoglobin Concent 31.7L, Red Cell Distribution Width 14.0, Platelet Count 260, Mean Platelet Volume 5.3L, Neutrophils (%) (Auto) 64.2, Lymphocytes (%) (Auto) 24.2, Monocytes (%) (Auto) 8.3, Eosinophils (%) (Auto) 2.1, Basophils (%) (Auto) 1.2, Sodium Level 144, Potassium Level 3.8, Chloride Level 110H, Carbon Dioxide Level 26, Anion Gap 9, Blood Urea Nitrogen 20H, Creatinine 0.7, Estimat Glomerular Filtration Rate > 60, Glucose Level 147H, Hemoglobin A1c 7.0H, Uric Acid 3.7, Calcium Level 8.3L, Phosphorus Level 3.7, Magnesium Level 1.8, Iron Level 36L, Total Iron Binding Capacity 355, Percent Iron Saturation 10L, Unsaturated Iron Binding 319, Ferritin 9, Total Bilirubin < 0.1L, Gamma Glutamyl Transpeptidase 30, Aspartate Amino Transf (AST/SGOT) 11L , Alanine Aminotransferase (ALT/SGPT) 17, Alkaline Phosphatase 132H, Troponin I 0.000, Pro-B-Type Natriuretic Peptide 15, Total Protein 6.7, Albumin 3.1L, Globulin 3.6, Albumin/Globulin Ratio 0.9L, Triglycerides Level 55, Cholesterol Level 174, LDL Cholesterol 71, HDL Cholesterol 88H, Cholesterol/HDL Ratio 2.0L, Vitamin B12 Level 309, Folate 7.2L, Thyroid Stimulating Hormone (TSH) 1.183 Height (Feet): 5 Height (Inches): 3.00 Weight (Pounds): 140 General Appearance: no apparent distress, alert, agitated Neurologic: alert, oriented x 3, depressed affect Alexia Dietrich M.D. Aug 09, 2017 12:20
--- NOTE | 2017-08-09 12:20 | General Progress Note ---
Assessment/Plan Assessment/Plan opioid dependence anxiety d/o mdd the pt is refusing pain meds adjustment. -Flexeril -Neurontin -Ativan -Klonopin -d/w nurse Subjective Date patient seen: Aug 09, 2017 Neurologic/Psychiatric: Reports: anxiety, depressed Allergies: Coded Allergies: METHADONE (Verified Allergy, Unknown, 06/04/17) MORPHINE (Verified Allergy, Unknown, 06/04/17) PREGABALIN (Verified Allergy, Unknown, 06/04/17) Subjective the pt is med seeking and he is calmer the pain specialist was unavailable Objective Last 24 Hour Vital Signs Date Time Temp Pulse Resp B/P (MAP) Pulse Ox O2 Delivery O2 Flow Rate FiO2 08/09/17 10:17 98.8 08/09/17 09:41 98.8 08/09/17 09:41 98.8 08/09/17 09:41 98.8 08/09/17 09:11 98.8 08/09/17 08:54 100 161/84 08/09/17 08:54 100 161/84 08/09/17 08:54 98.8 08/09/17 08:53 98.8 08/09/17 08:00 98.6 88 15 155/84 97 98.6 08/09/17 04:00 98.8 100 20 161/84 96 98.8 08/09/17 00:09 167/132 08/09/17 00:00 98.4 97 20 167/132 100 98.4 08/08/17 20:00 98.6 77 20 151/84 98 98.6 08/08/17 18:25 76 169/84 08/08/17 16:04 98.6 75 20 141/96 97 Room Air 98.6 08/08/17 15:02 78 160/88 Intake and Output 08/08/17 08/09/17 19:00 07:00 Intake Total 1255 ml Balance 1255 ml Intake Oral 1200 ml IV Total 55 ml # Voids 3 # Bowel Movements 1 Laboratory Tests 08/09/17 05:25: White Blood Count 7.6, Red Blood Count 3.80L, Hemoglobin 11.2L, Hematocrit 35.3L , Mean Corpuscular Volume 93, Mean Corpuscular Hemoglobin 29.5, Mean Corpuscular Hemoglobin Concent 31.7L, Red Cell Distribution Width 14.0, Platelet Count 260, Mean Platelet Volume 5.3L, Neutrophils (%) (Auto) 64.2, Lymphocytes (%) (Auto) 24.2, Monocytes (%) (Auto) 8.3, Eosinophils (%) (Auto) 2.1, Basophils (%) (Auto) 1.2, Sodium Level 144, Potassium Level 3.8, Chloride Level 110H, Carbon Dioxide Level 26, Anion Gap 9, Blood Urea Nitrogen 20H, Creatinine 0.7, Estimat Glomerular Filtration Rate > 60, Glucose Level 147H, Hemoglobin A1c 7.0H, Uric Acid 3.7, Calcium Level 8.3L, Phosphorus Level 3.7, Magnesium Level 1.8, Iron Level 36L, Total Iron Binding Capacity 355, Percent Iron Saturation 10L, Unsaturated Iron Binding 319, Ferritin 9, Total Bilirubin < 0.1L, Gamma Glutamyl Transpeptidase 30, Aspartate Amino Transf (AST/SGOT) 11L , Alanine Aminotransferase (ALT/SGPT) 17, Alkaline Phosphatase 132H, Troponin I 0.000, Pro-B-Type Natriuretic Peptide 15, Total Protein 6.7, Albumin 3.1L, Globulin 3.6, Albumin/Globulin Ratio 0.9L, Triglycerides Level 55, Cholesterol Level 174, LDL Cholesterol 71, HDL Cholesterol 88H, Cholesterol/HDL Ratio 2.0L, Vitamin B12 Level 309, Folate 7.2L, Thyroid Stimulating Hormone (TSH) 1.183 Height (Feet): 5 Height (Inches): 3.00 Weight (Pounds): 140 Alexia Dietrich M.D. Aug 09, 2017 12:20
--- NOTE | 2017-08-09 12:22 | Psych Consult Progress Note ---
Psych Consult Progress Note Consult 08/08/17 the pt was seeing on wednesday she was calmer and more manageable. no si/hi .mdd anxiety d/o -Flexeril -Neurontin -Ativan -Klonopin -d/w nurse Vital Signs Last 24 Hour Vital Signs Date Time Temp Pulse Resp B/P (MAP) Pulse Ox O2 Delivery O2 Flow Rate FiO2 08/09/17 10:17 98.8 08/09/17 09:41 98.8 08/09/17 09:41 98.8 08/09/17 09:41 98.8 08/09/17 09:11 98.8 08/09/17 08:54 100 161/84 08/09/17 08:54 100 161/84 08/09/17 08:54 98.8 08/09/17 08:53 98.8 08/09/17 08:00 98.6 88 15 155/84 97 98.6 08/09/17 04:00 98.8 100 20 161/84 96 98.8 08/09/17 00:09 167/132 08/09/17 00:00 98.4 97 20 167/132 100 98.4 08/08/17 20:00 98.6 77 20 151/84 98 98.6 08/08/17 18:25 76 169/84 08/08/17 16:04 98.6 75 20 141/96 97 Room Air 98.6 08/08/17 15:02 78 160/88 Labs Laboratory Tests Test 08/09/17 05:25 White Blood Count 7.6 K/UL (4.8-10.8) Red Blood Count 3.80 M/UL (4.20-5.40) L Hemoglobin 11.2 G/DL (12.0-16.0) L Hematocrit 35.3 % (37.0-47.0) L Mean Corpuscular Volume 93 FL (80-99) Mean Corpuscular Hemoglobin 29.5 PG (27.0-31.0) Mean Corpuscular Hemoglobin Concent 31.7 G/DL (32.0-36.0) L Red Cell Distribution Width 14.0 % (11.6-14.8) Platelet Count 260 K/UL (150-450) Mean Platelet Volume 5.3 FL (6.5-10.1) L Neutrophils (%) (Auto) 64.2 % (45.0-75.0) Lymphocytes (%) (Auto) 24.2 % (20.0-45.0) Monocytes (%) (Auto) 8.3 % (1.0-10.0) Eosinophils (%) (Auto) 2.1 % (0.0-3.0) Basophils (%) (Auto) 1.2 % (0.0-2.0) Sodium Level 144 MMOL/L (136-145) Potassium Level 3.8 MMOL/L (3.5-5.1) Chloride Level 110 MMOL/L (98-107) H Carbon Dioxide Level 26 MMOL/L (21-32) Anion Gap 9 mmol/L (5-15) Blood Urea Nitrogen 20 mg/dL (7-18) H Creatinine 0.7 MG/DL (0.55-1.30) Estimat Glomerular Filtration Rate > 60 mL/min (>60) Glucose Level 147 MG/DL (74-106) H Hemoglobin A1c 7.0 % (4.3-6.0) H Uric Acid 3.7 MG/DL (2.6-7.2) Calcium Level 8.3 MG/DL (8.5-10.1) L Phosphorus Level 3.7 MG/DL (2.5-4.9) Magnesium Level 1.8 MG/DL (1.8-2.4) Iron Level 36 ug/dL (50-175) L Total Iron Binding Capacity 355 ug/dL (250-450) Percent Iron Saturation 10 % (15-50) L Unsaturated Iron Binding 319 ug/dL (112-346) Ferritin 9 NG/ML (8-388) Total Bilirubin < 0.1 MG/DL (0.2-1.0) L Gamma Glutamyl Transpeptidase 30 U/L (5-85) Aspartate Amino Transf (AST/SGOT) 11 U/L (15-37) L Alanine Aminotransferase (ALT/SGPT) 17 U/L (12-78) Alkaline Phosphatase 132 U/L (46-116) H Troponin I 0.000 ng/mL (0.000-0.056) Pro-B-Type Natriuretic Peptide 15 pg/mL (0-125) Total Protein 6.7 G/DL (6.4-8.2) Albumin 3.1 G/DL (3.4-5.0) L Globulin 3.6 g/dL Albumin/Globulin Ratio 0.9 (1.0-2.7) L Triglycerides Level 55 MG/DL (30-150) Cholesterol Level 174 MG/DL (< 200) LDL Cholesterol 71 mg/dL (<100) HDL Cholesterol 88 MG/DL (40-60) H Cholesterol/HDL Ratio 2.0 (3.3-4.4) L Vitamin B12 Level 309 PG/ML (193-986) Folate 7.2 NG/ML (8.6-58.9) L Thyroid Stimulating Hormone (TSH) 1.183 uiU/mL (0.358-3.740) Medications Current Medications Medications (Trade) Dose Ordered Sig/Danni Route PRN Reason Start Time Stop Time Status Last Admin Dose Admin Acetaminophen (Tylenol) 650 mg Q4H PRN ORAL Mild Pain/Temp > 100.5 08/04/17 21:45 09/03/17 21:44 Amlodipine Besylate (Norvasc) 10 mg DAILY ORAL 08/09/17 09:00 09/08/17 08:59 08/09/17 08:54 Baclofen (Lioresal) 10 mg THREE TIMES A DAY ORAL 08/05/17 13:00 09/04/17 12:59 08/09/17 08:53 Carisoprodol (Soma) 350 mg TID ORAL 08/04/17 21:45 09/03/17 21:44 08/09/17 08:53 Ceftriaxone Sodium 1 gm/ Dextrose 55 ml @ 110 mls/hr Q24H IVPB 08/08/17 15:00 08/15/17 14:59 08/08/17 15:02 Chlorhexidine Gluconate (Margot-Hex 2%) 1 applic DAILY@2000 TOPIC 08/05/17 20:00 09/04/17 19:59 08/07/17 20:40 Clonazepam (KlonoPIN) 1 mg BEDTIME ORAL 08/05/17 21:00 08/12/17 20:59 08/08/17 21:15 Cyanocobalamin (Vitamin B12) 1,000 mcg ONCE ONCE SUBQ 08/09/17 13:00 08/09/17 13:01 Diphenhydramine HCl (Benadryl) 25 mg Q6H PRN ORAL Itching 08/04/17 23:45 09/03/17 23:44 08/08/17 18:26 Folic Acid (Folate) 2 mg DAILY ORAL 08/09/17 12:00 09/08/17 11:59 Gabapentin (Neurontin) 300 mg EVERY 6 HOURS ORAL 08/08/17 12:30 09/04/17 12:29 08/09/17 05:19 Hydralazine HCl (Apresoline) 25 mg Q4H PRN ORAL for bp above 160 syst 08/08/17 13:45 09/07/17 13:44 08/09/17 00:09 Hydromorphone HCl (Dilaudid) 2 mg Q4H PRN IVP PAIN 4-08/05/17 12:15 08/12/17 12:14 08/09/17 09:11 Iron Sucrose 200 mg/Sodium Chloride 120 ml @ 240 mls/hr ONCE ONCE IV 08/09/17 21:00 08/09/17 21:29 Lisinopril (Zestril) 10 mg DAILY ORAL 08/10/17 09:00 09/09/17 08:59 Lorazepam (Ativan 2mg/ml 1ml) 1 mg Q4H PRN IV For Anxiety 08/08/17 12:00 08/12/17 11:59 08/09/17 10:17 Metoprolol Succinate (Toprol XL) 50 mg BID ORAL 08/08/17 18:00 09/04/17 08:59 08/09/17 08:54 Morphine Sulfate (MS Contin) 30 mg TID ORAL 08/05/17 09:00 08/12/17 08:59 08/09/17 10:17 Rivaroxaban (Xarelto) 20 mg DAILY ORAL 08/05/17 09:00 09/04/17 08:59 08/09/17 10:16 Ropinirole HCl (Requip) 1 mg THREE TIMES A DAY ORAL 08/04/17 21:45 09/03/17 21:44 08/09/17 08:53 Tizanidine HCl (Zanaflex) 1 mg THREE TIMES A DAY ORAL 08/08/17 13:00 09/07/17 12:59 08/09/17 08:54 Alexia Dietrich M.D. Aug 09, 2017 12:22
[2017-08-09] MEDS ORDERED: Vitamin B12 1000mcg/ml Inj SUBQ ONE (13:00)
[2017-08-09] MEDS: cefTRIAXone 1 GM in D5W 55 ML IVPB SCH (15:31)
[2017-08-09 16:00] VITALS: BP 140/79
[2017-08-09 20:00] VITALS: BP 134/78
[2017-08-09] MEDS: Iron Sucrose 200 MG in NS 110 ML IV ONE ×2 (21:00→21:23)
[2017-08-09] MEDS: Dyna-Hex 2% Top Sol 2oz TOPIC SCH (21:22)
[2017-08-10] VITALS: BP 127/74
[2017-08-10 04:00] VITALS: BP 130/75
[2017-08-10] MEDS: LORazepam Inj 2mg/ml 1ml IV PRN ×3 (04:08→12:50)
[2017-08-10 07:29] LABS: ANION GAP 8 mmol/L (5-15); BLOOD UREA NITROGEN 16 mg/dL (7-18); CALCIUM 8.3 MG/DL (8.5-10.1); CARBON DIOXIDE 25 MMOL/L (21-32); CHLORIDE 108 MMOL/L (98-107); CREATININE 0.6 MG/DL (0.55-1.30); SODIUM 141 MMOL/L (136-145)
[2017-08-10 07:37] LABS: BASOPHILS % (AUTO) 1.3 % (0.0-2.0); EOSINOPHILS % (AUTO) 1.8 % (0.0-3.0); HEMATOCRIT 33.3 % (37.0-47.0); HEMOGLOBIN 10.7 G/DL (12.0-16.0); LYMPHOCYTES % (AUTO) 22.4 % (20.0-45.0); MEAN CORPUSCULAR VOLUME 93 FL (80-99); MONOCYTES % (AUTO) 7.5 % (1.0-10.0); PLATELET COUNT 246 K/UL (150-450); RED CELL DISTRIBUTION WIDTH 13.8 % (11.6-14.8); WHITE BLOOD COUNT 7.8 K/UL (4.8-10.8)
[2017-08-10 08:00] VITALS: BP 131/83
[2017-08-10] MEDS: Metoprolol Succinate XL 50mg tab ORAL SCH ×2 (08:34→18:46)
[2017-08-10] MEDS: Xarelto 10mg tab ORAL SCH (08:34)
[2017-08-10] MEDS: Lisinopril 10mg tab ORAL SCH (09:00)
[2017-08-10] MEDS: MS Contin 15mg tab ORAL SCH ×3 (10:53→18:44)
[2017-08-10 12:00] VITALS: BP 115/63
--- NOTE | 2017-08-10 13:10 | Neurology Progress Note ---
Interim History Interim History ROS Limited/Unobtainable: No Complaints: severe intractable pain/muscle spasm , now abdomen wall Events: briefly better with meds , request q 2hr dilaudid/soma. refused baclofen Objective Physical Exam Last Vital Signs Date Time Temp Pulse Resp B/P (MAP) Pulse Ox O2 Delivery O2 Flow Rate FiO2 08/10/17 09:00 117/63 08/10/17 08:34 74 08/10/17 08:00 98.2 19 97 98.2 08/08/17 16:04 Room Air Laboratory Tests Test 08/10/17 05:30 White Blood Count 7.8 K/UL (4.8-10.8) Red Blood Count 3.60 M/UL (4.20-5.40) L Hemoglobin 10.7 G/DL (12.0-16.0) L Hematocrit 33.3 % (37.0-47.0) L Mean Corpuscular Volume 93 FL (80-99) Mean Corpuscular Hemoglobin 29.8 PG (27.0-31.0) Mean Corpuscular Hemoglobin Concent 32.2 G/DL (32.0-36.0) Red Cell Distribution Width 13.8 % (11.6-14.8) Platelet Count 246 K/UL (150-450) Mean Platelet Volume 5.1 FL (6.5-10.1) L Neutrophils (%) (Auto) 67.0 % (45.0-75.0) Lymphocytes (%) (Auto) 22.4 % (20.0-45.0) Monocytes (%) (Auto) 7.5 % (1.0-10.0) Eosinophils (%) (Auto) 1.8 % (0.0-3.0) Basophils (%) (Auto) 1.3 % (0.0-2.0) Sodium Level 141 MMOL/L (136-145) Potassium Level 4.0 MMOL/L (3.5-5.1) Chloride Level 108 MMOL/L (98-107) H Carbon Dioxide Level 25 MMOL/L (21-32) Anion Gap 8 mmol/L (5-15) Blood Urea Nitrogen 16 mg/dL (7-18) Creatinine 0.6 MG/DL (0.55-1.30) Estimat Glomerular Filtration Rate > 60 mL/min (>60) Glucose Level 95 MG/DL (74-106) Calcium Level 8.3 MG/DL (8.5-10.1) L General: well developed, well nourished, other - abdomen spasm Head: normocophalic, atraumatic Neck: no rigidity Neurologic Exam Mental Status: awake, alert, oriented x4, normal cognition, good mathematical skills, normal recent memory, normal remote memory, preserved visuospatial function, other - very anxious 2/2 pain/cramps Speech: normal speech, no dysarthia Language: normal language, no aphasia Cranial Nerve II: fundus normal, visual montero, no papilledema Cranial Nerves III, IV, : PERRLA, EOMI, pupils Cranial Nerve V: normal facial sensations, temporales function normal, masseters function normal, pterygoids function normal Cranial Nerve VII: no facial asymmetry, normal facial expressions Cranial Nerve VIII: normal hearing, no nystagmus Cranial Nerve IX: normal palate elevation, gag response Cranial Nerve X: no voice hoarseness Cranial Nerve XI: SCM symmetric, trapezii function normal Cranial Nerve XII: tongue midline, no tongue atrophy/fasciculations Motor System: normal muscle tone, strength 5/5, other - R foot drop Sensory: normal light touch Coordination: normal finger to nose bilaterally Deep Tendon Reflexes: 0 bicep (L), 0 bicep (R), 0 tricep (L), 0 tricep (R), 0 brachioradialis (L), 0 brachioradialis (R), 0 knee (L), 0 knee (R), 0 ankle (L) , 0 ankle (R) Reflexes: mute plantar (L), mute plantar (R) Impression/Recommendations Problems: (1) spasmodic severe pain (2) r/o lumbar arachnoiditis (3) Benzodiazepine dependence (4) Chronic pain syndrome (5) HTN (hypertension) (6) Opioid dependence Status: stable, unchanged Recommendations #[id number] Pain mgmt----- for opiates adjustment CT abdomen/Lumbar spine neurontin 600mgtid tizanidine 4mg tid MITUL MILTON Aug 10, 2017 13:10
[2017-08-10] MEDS: cefTRIAXone 1 GM in D5W 55 ML IVPB SCH (15:26)
--- NOTE | 2017-08-10 15:44 | Diagnostic Imaging Report ---
Indication: Reason For Exam: PAIN Technique: Precontrast spiral acquisitions obtained through the lumbar spine. IV administration nonionic contrast. Postcontrast spiral acquisitions obtained through the Star spine Multiplanar reconstructions were generated. Total dose length product 1059 mGycm. CTDIvol(s) 15 x 2 mGy. Radiation dose was minimized using automated exposure control Comparison: none Findings: Patient is status post surgical fusion of L4-5. Pedicle screws are seen through the left L4 and L5 pedicles, with hardware connecting them.. A bony defect within the L4 spinous process likely indicates prior hardware, subsequently removed. The screws appear well aligned and completely intraosseous. Screw holes are seen in the right L4 and L5 pedicles, from which hardware is apparently been previously removed. There is also evidence of anterior fusion, with a disc spacer within the disc and evidence of ankylosis of the disc. There is also ankylosis of the bilateral L4-5 facets. There is evidence of prior bone grafting between the L3, L4, and L5 transverse processes as well as all along the course of the posterior elements. There is also ankylosis of the L3, L4, and L5 spinous processes. A defect in the L4 spinous process likely indicates prior hardware which has subsequently been removed. There is unusual ossification of the periphery of the thecal sac extending from the level of the L4-5 disc to the level of the S1-2 disc. The wall of the thecal sac also appears thickened. Posterior to L4, there is material within what is presumably the epidural space at the posterior right lateral aspect of the spinal canal, measuring 13 mm transverse by 4 mm thick by approximately 7 mm craniocaudad. This only results in minimal compromise of the spinal canal. No significant L4-5 disc protrusion is demonstrated. The bilateral neural foramina are preserved. At L5-S1 no significant disc bulge or protrusion. It is unclear how much the ossification and wall thickening of the thecal sac at this level narrows the thecal sac.. Facet arthrosis results in mild narrowing of the right neural foramen. Posterior to the L3-4 disc, there is material in the posterior spinal canal which appears similar to the material described above posterior to L4. This measures approximately 10 mm transverse by 5 mm thick by 10 mm craniocaudad, only minimally enhances and is actually more conspicuous on the precontrast images. This may result in at least mild compromise of the spinal canal at this level. There is no significant L3-4 disc protrusion or neural foraminal stenosis. There are 2 spinal stimulators present. One of these has a single wire, enters the spinal canal posteriorly at the L1-2 level, and the tip terminates just slightly cephalad at the T11-12 level. A second spinal stimulator has 2 wires which enter at the T12-L1 level, course posteriorly in the spinal canal, and terminate beyond the imaging volume, probably just above the T10 vertebral body. At T11-12, facet arthrosis results in mild narrowing of the bilateral neural foramina. No significant disc bulge or protrusion or spinal canal stenosis. At T12-L1, L1-L2, no significant disc bulge or protrusion, spinal stenosis, or neural foraminal stenosis demonstrated. At L2-3, circumferential annular bulge, facet and ligament flavum hypertrophy result in borderline narrowing of the spinal canal. No significant neural foraminal stenosis demonstrated. There is bilateral facet arthrosis at this level. Bony alignment is normal. Vertebral body heights are preserved. Other than the postsurgical abnormality at L4-5, the disc spaces are preserved. No acute fractures. No dislocations. High attenuation of the subcutaneous fat at the entry point of the spinal stimulator wires does not appear to enhance significantly or contain any fluid collections, most likely represents scar tissue related to prior surgery. Incisional scars are seen extending caudad from this point. The included extra spinal soft tissues are otherwise unremarkable. Impression: Fairly extensive postsurgical changes of the lower lumbar spine, as detailed above Focal material within the spinal canal, likely in the epidural space, posterior to the L3-4 disc and another posterior to the lower L4 vertebral body, as described above. Given the slightly hyperattenuating appearance on precontrast images and very slight degree of enhancement, suspect that this represents areas postsurgical scarring. These narrow the spinal canal, but it is uncertain whether these result in significant neural compromise Other degenerative changes, as described on a level by level basis above Very unusual thickening and dystrophic calcification of the lower lumbar and upper sacral thecal sac. Presumably chronic. Neurologic implication of this uncertain Spinal stimulators, as described No definite abscess or evidence of acute inflammation No evidence of acute bony trauma The CT scanner at [facility] is accredited by the [employer] and the scans are performed using protocols designed to limit radiation exposure to as low as reasonably achievable to attain images of sufficient resolution adequate for diagnostic evaluation.
[2017-08-10 16:00] VITALS: BP 140/78
--- NOTE | 2017-08-10 16:03 | General Progress Note ---
Assessment/Plan Problem List: (1) Azotemia ICD Codes: R79.89 - Other specified abnormal findings of blood chemistry SNOMED: 771551757 (2) Opioid dependence ICD Codes: F11.20 - Opioid dependence, uncomplicated SNOMED: 51230038 (3) Anemia ICD Codes: D64.9 - Anemia, unspecified SNOMED: 184212714 (4) Hypoalbuminemia ICD Codes: E88.09 - Other disorders of plasma-protein metabolism, not elsewhere classified SNOMED: 285052367 (5) HTN (hypertension) ICD Codes: I10 - Essential (primary) hypertension SNOMED: 70375322 (6) Muscle spasm ICD Codes: M62.838 - Other muscle spasm SNOMED: 36857568, 15515688 (7) Chronic pain syndrome ICD Codes: G89.4 - Chronic pain syndrome SNOMED: 416053938 (8) pain Status: unchanged Assessment/Plan ot pt diet pain control cbc bmp in am gi eval pain eval Subjective Constitutional: Reports: weakness Allergies: Coded Allergies: IRON (Verified Allergy, Unknown, Rash, 08/09/17) had nausea, vomiting and rashes METHADONE (Verified Allergy, Unknown, 06/04/17) MORPHINE (Verified Allergy, Unknown, 06/04/17) PREGABALIN (Verified Allergy, Unknown, 06/04/17) All Systems: reviewed and negative except above Subjective c/o leg and abd pain 11/16 Objective Last 24 Hour Vital Signs Date Time Temp Pulse Resp B/P (MAP) Pulse Ox O2 Delivery O2 Flow Rate FiO2 08/10/17 16:00 97.9 83 20 140/78 97 97.9 08/10/17 12:00 98.0 65 19 115/63 97 98.0 08/10/17 09:00 117/63 08/10/17 08:34 74 131/83 08/10/17 08:33 74 131/83 08/10/17 08:00 98.2 74 19 131/83 97 98.2 08/10/17 04:00 98.4 72 22 130/75 97 98.4 08/10/17 00:00 98.0 74 20 127/74 97 98.0 08/09/17 20:00 98.2 73 20 134/78 95 98.2 08/09/17 19:09 97.7 08/09/17 19:09 97.7 08/09/17 19:09 97.7 08/09/17 18:11 97.7 08/09/17 18:10 82 140/79 08/09/17 18:10 97.7 08/09/17 18:10 97.7 08/09/17 17:46 97.7 08/09/17 17:16 97.7 Intake and Output 08/09/17 08/10/17 19:00 07:00 Intake Total 535 ml Balance 535 ml Intake Oral 480 ml IV Total 55 ml # Voids 3 1 Laboratory Tests 08/10/17 05:30: White Blood Count 7.8, Red Blood Count 3.60L, Hemoglobin 10.7L, Hematocrit 33.3L , Mean Corpuscular Volume 93, Mean Corpuscular Hemoglobin 29.8, Mean Corpuscular Hemoglobin Concent 32.2, Red Cell Distribution Width 13.8, Platelet Count 246, Mean Platelet Volume 5.1L, Neutrophils (%) (Auto) 67.0, Lymphocytes ( %) (Auto) 22.4, Monocytes (%) (Auto) 7.5, Eosinophils (%) (Auto) 1.8, Basophils (%) (Auto) 1.3, Sodium Level 141, Potassium Level 4.0, Chloride Level 108H, Carbon Dioxide Level 25, Anion Gap 8, Blood Urea Nitrogen 16, Creatinine 0.6, Estimat Glomerular Filtration Rate > 60, Glucose Level 95, Calcium Level 8.3L Height (Feet): 5 Height (Inches): 3.00 Weight (Pounds): 140 General Appearance: alert EENT: normal ENT inspection Neck: normal alignment Cardiovascular: normal peripheral pulses, normal rate, regular rhythm Respiratory/Chest: chest wall non-tender, lungs clear, normal breath sounds Abdomen: normal bowel sounds, non tender, soft Extremities: normal inspection Edema: no edema noted Arm (L), no edema noted Arm (R), no edema noted Leg (L), no edema noted Leg (R), no edema noted Pedal (L), no edema noted Pedal (R), no edema noted Generalized Neurologic: responsive, motor weakness Skin: normal pigmentation, warm/dry JUAN FRANCISCO OCAMPO Aug 10, 2017 16:03
--- NOTE | 2017-08-10 16:15 | Nephrology Progress Note ---
Assessment/Plan Problem List: (1) HTN (hypertension) (2) Opioid dependence (3) Anemia Assessment HTN OOC, now controlled Anemia UTI Chronic Pain DM Plan Plan: Add Norvasc & Zestril Pain management start rocephin for e coli uti check labs per orders ? DC Subjective ROS Limited/Unobtainable: No Constitutional: Reports: malaise, weakness Objective Objective Last 24 Hour Vital Signs Date Time Temp Pulse Resp B/P (MAP) Pulse Ox O2 Delivery O2 Flow Rate FiO2 08/10/17 16:00 97.9 83 20 140/78 97 97.9 08/10/17 12:00 98.0 65 19 115/63 97 98.0 08/10/17 09:00 117/63 08/10/17 08:34 74 131/83 08/10/17 08:33 74 131/83 08/10/17 08:00 98.2 74 19 131/83 97 98.2 08/10/17 04:00 98.4 72 22 130/75 97 98.4 08/10/17 00:00 98.0 74 20 127/74 97 98.0 08/09/17 20:00 98.2 73 20 134/78 95 98.2 08/09/17 19:09 97.7 08/09/17 19:09 97.7 08/09/17 19:09 97.7 08/09/17 18:11 97.7 08/09/17 18:10 82 140/79 08/09/17 18:10 97.7 08/09/17 18:10 97.7 08/09/17 17:46 97.7 08/09/17 17:16 97.7 Intake and Output 08/09/17 08/10/17 19:00 07:00 Intake Total 535 ml Balance 535 ml Intake Oral 480 ml IV Total 55 ml # Voids 3 1 Laboratory Tests 08/10/17 05:30: White Blood Count 7.8, Red Blood Count 3.60L, Hemoglobin 10.7L, Hematocrit 33.3L , Mean Corpuscular Volume 93, Mean Corpuscular Hemoglobin 29.8, Mean Corpuscular Hemoglobin Concent 32.2, Red Cell Distribution Width 13.8, Platelet Count 246, Mean Platelet Volume 5.1L, Neutrophils (%) (Auto) 67.0, Lymphocytes ( %) (Auto) 22.4, Monocytes (%) (Auto) 7.5, Eosinophils (%) (Auto) 1.8, Basophils (%) (Auto) 1.3, Sodium Level 141, Potassium Level 4.0, Chloride Level 108H, Carbon Dioxide Level 25, Anion Gap 8, Blood Urea Nitrogen 16, Creatinine 0.6, Estimat Glomerular Filtration Rate > 60, Glucose Level 95, Calcium Level 8.3L Height (Feet): 5 Height (Inches): 3.00 Weight (Pounds): 140 General Appearance: no apparent distress Respiratory/Chest: decreased breath sounds Abdomen: soft Objective no change LESLY DUKE Aug 10, 2017 16:15
[2017-08-10 20:00] VITALS: BP 129/81
[2017-08-10] MEDS: Dyna-Hex 2% Top Sol 2oz TOPIC SCH (20:00)
--- NOTE | 2017-08-10 22:59 | General Progress Note ---
Assessment/Plan Assessment/Plan opioid dependence anxiety d/o mdd the pt is refusing pain meds adjustment. -Flexeril -Neurontin -Ativan -Klonopin -d/w nurse Subjective Date patient seen: Aug 10, 2017 Neurologic/Psychiatric: Reports: anxiety, depressed, emotional problems Allergies: Coded Allergies: IRON (Verified Allergy, Unknown, Rash, 08/09/17) had nausea, vomiting and rashes METHADONE (Verified Allergy, Unknown, 06/04/17) MORPHINE (Verified Allergy, Unknown, 06/04/17) PREGABALIN (Verified Allergy, Unknown, 06/04/17) Subjective the pt is med seeking and he is calmer the pain specialist was unavailable Objective Last 24 Hour Vital Signs Date Time Temp Pulse Resp B/P (MAP) Pulse Ox O2 Delivery O2 Flow Rate FiO2 08/10/17 20:00 97.9 77 20 129/81 100 97.9 08/10/17 18:46 87 130/75 08/10/17 16:00 97.9 83 20 140/78 97 97.9 08/10/17 12:00 98.0 65 19 115/63 97 98.0 08/10/17 09:00 117/63 08/10/17 08:34 74 131/83 08/10/17 08:33 74 131/83 08/10/17 08:00 98.2 74 19 131/83 97 98.2 08/10/17 04:00 98.4 72 22 130/75 97 98.4 08/10/17 00:00 98.0 74 20 127/74 97 98.0 Intake and Output 08/09/17 08/10/17 19:00 07:00 Intake Total 535 ml Balance 535 ml Intake Oral 480 ml IV Total 55 ml # Voids 3 1 Laboratory Tests 08/10/17 05:30: White Blood Count 7.8, Red Blood Count 3.60L, Hemoglobin 10.7L, Hematocrit 33.3L , Mean Corpuscular Volume 93, Mean Corpuscular Hemoglobin 29.8, Mean Corpuscular Hemoglobin Concent 32.2, Red Cell Distribution Width 13.8, Platelet Count 246, Mean Platelet Volume 5.1L, Neutrophils (%) (Auto) 67.0, Lymphocytes ( %) (Auto) 22.4, Monocytes (%) (Auto) 7.5, Eosinophils (%) (Auto) 1.8, Basophils (%) (Auto) 1.3, Sodium Level 141, Potassium Level 4.0, Chloride Level 108H, Carbon Dioxide Level 25, Anion Gap 8, Blood Urea Nitrogen 16, Creatinine 0.6, Estimat Glomerular Filtration Rate > 60, Glucose Level 95, Calcium Level 8.3L Height (Feet): 5 Height (Inches): 3.00 Weight (Pounds): 140 General Appearance: no apparent distress, alert Neurologic: oriented x 3, depressed affect Alexia Dietrich M.D. Aug 10, 2017 22:59
[2017-08-11] VITALS: BP 146/98
[2017-08-11 04:00] VITALS: BP 159/91
[2017-08-11 07:09] LABS: ANION GAP 6 mmol/L (5-15); BLOOD UREA NITROGEN 17 mg/dL (7-18); CALCIUM 8.4 MG/DL (8.5-10.1); CARBON DIOXIDE 30 MMOL/L (21-32); CHLORIDE 105 MMOL/L (98-107); CREATININE 0.7 MG/DL (0.55-1.30); POTASSIUM 3.8 MMOL/L (3.5-5.1); SODIUM 141 MMOL/L (136-145)
[2017-08-11 07:19] LABS: EOSINOPHILS % (AUTO) 1.4 % (0.0-3.0); HEMATOCRIT 32.4 % (37.0-47.0); HEMOGLOBIN 10.3 G/DL (12.0-16.0); LYMPHOCYTES % (AUTO) 28.3 % (20.0-45.0); MEAN CORPUSCULAR VOLUME 91 FL (80-99); MONOCYTES % (AUTO) 7.4 % (1.0-10.0); NEUTROPHILS % (AUTO) 61.9 % (45.0-75.0); PLATELET COUNT 245 K/UL (150-450); RED BLOOD COUNT 3.54 M/UL (4.20-5.40); RED CELL DISTRIBUTION WIDTH 13.7 % (11.6-14.8)
[2017-08-11 08:00] VITALS: BP 124/84
[2017-08-11] MEDS: Lisinopril 10mg tab ORAL SCH (08:24)
[2017-08-11] MEDS: Xarelto 10mg tab ORAL SCH (08:25)
[2017-08-11] MEDS: MS Contin 15mg tab ORAL SCH ×3 (09:39→18:55)
[2017-08-11] MEDS: Metoprolol Succinate XL 50mg tab ORAL SCH ×2 (11:07→18:56)
[2017-08-11 12:00] VITALS: BP 159/81
--- NOTE | 2017-08-11 12:09 | Neurology Progress Note ---
Interim History Interim History ROS Limited/Unobtainable: No Complaints: severe intractable pain/muscle spasm ,R hip low back Events: briefly better with meds , request q 2hr dilaudid/soma. refused baclofen"in Objective Physical Exam Last Vital Signs Date Time Temp Pulse Resp B/P (MAP) Pulse Ox O2 Delivery O2 Flow Rate FiO2 08/11/17 11:07 74 159/61 08/11/17 08:00 98.1 21 100 Room Air 98.1 Laboratory Tests Test 08/11/17 05:10 White Blood Count 7.0 K/UL (4.8-10.8) Red Blood Count 3.54 M/UL (4.20-5.40) L Hemoglobin 10.3 G/DL (12.0-16.0) L Hematocrit 32.4 % (37.0-47.0) L Mean Corpuscular Volume 91 FL (80-99) Mean Corpuscular Hemoglobin 29.0 PG (27.0-31.0) Mean Corpuscular Hemoglobin Concent 31.7 G/DL (32.0-36.0) L Red Cell Distribution Width 13.7 % (11.6-14.8) Platelet Count 245 K/UL (150-450) Mean Platelet Volume 5.4 FL (6.5-10.1) L Neutrophils (%) (Auto) 61.9 % (45.0-75.0) Lymphocytes (%) (Auto) 28.3 % (20.0-45.0) Monocytes (%) (Auto) 7.4 % (1.0-10.0) Eosinophils (%) (Auto) 1.4 % (0.0-3.0) Basophils (%) (Auto) 1.0 % (0.0-2.0) Sodium Level 141 MMOL/L (136-145) Potassium Level 3.8 MMOL/L (3.5-5.1) Chloride Level 105 MMOL/L (98-107) Carbon Dioxide Level 30 MMOL/L (21-32) Anion Gap 6 mmol/L (5-15) Blood Urea Nitrogen 17 mg/dL (7-18) Creatinine 0.7 MG/DL (0.55-1.30) Estimat Glomerular Filtration Rate > 60 mL/min (>60) Glucose Level 93 MG/DL (74-106) Calcium Level 8.4 MG/DL (8.5-10.1) L General: well developed, well nourished, other - abdomen spasm Head: normocophalic, atraumatic Neck: no rigidity Neurologic Exam Mental Status: awake, alert, oriented x4, normal cognition, good mathematical skills, normal recent memory, normal remote memory, preserved visuospatial function, other - very anxious 2/2 pain/cramps Speech: normal speech, no dysarthia Language: normal language, no aphasia Cranial Nerve II: fundus normal, visual montero, no papilledema Cranial Nerves III, IV, : PERRLA, EOMI, pupils Cranial Nerve V: normal facial sensations, temporales function normal, masseters function normal, pterygoids function normal Cranial Nerve VII: no facial asymmetry, normal facial expressions Cranial Nerve VIII: normal hearing, no nystagmus Cranial Nerve IX: normal palate elevation, gag response Cranial Nerve X: no voice hoarseness Cranial Nerve XI: SCM symmetric, trapezii function normal Cranial Nerve XII: tongue midline, no tongue atrophy/fasciculations Motor System: normal muscle tone, strength 5/5, other - R foot drop Sensory: normal light touch Coordination: normal finger to nose bilaterally Deep Tendon Reflexes: 0 bicep (L), 0 bicep (R), 0 tricep (L), 0 tricep (R), 0 brachioradialis (L), 0 brachioradialis (R), 0 knee (L), 0 knee (R), 0 ankle (L) , 0 ankle (R) Reflexes: mute plantar (L), mute plantar (R) Impression/Recommendations Problems: (1) spasmodic severe pain (2) r/o lumbar arachnoiditis (3) Benzodiazepine dependence (4) Chronic pain syndrome (5) HTN (hypertension) (6) Opioid dependence Status: unchanged Recommendations #[id number] Pain mgmt----- for opiates adjustment CT abdomen/Lumbar spine -no acute lesions neurontin 600mgtid tizanidine 4mg tid d/c baclofen BOTOX as outpatient MITUL MILTON Aug 11, 2017 12:09
--- NOTE | 2017-08-11 12:24 | General Progress Note ---
Assessment/Plan Status: stable Assessment/Plan opioid dependence anxiety d/o mdd the pt is refusing pain meds adjustment. -Flexeril -Neurontin -Ativan -Klonopin -d/w nurse Subjective Date patient seen: Aug 11, 2017 Neurologic/Psychiatric: Reports: anxiety, depressed, emotional problems Allergies: Coded Allergies: IRON (Verified Allergy, Unknown, Rash, 08/09/17) had nausea, vomiting and rashes METHADONE (Verified Allergy, Unknown, 06/04/17) MORPHINE (Verified Allergy, Unknown, 06/04/17) PREGABALIN (Verified Allergy, Unknown, 06/04/17) Subjective the pt is med seeking the pt is the same does not appear to be in pain but says she is. Objective Last 24 Hour Vital Signs Date Time Temp Pulse Resp B/P (MAP) Pulse Ox O2 Delivery O2 Flow Rate FiO2 08/11/17 12:00 98.2 74 20 159/81 99 Room Air 98.2 08/11/17 11:07 74 159/61 08/11/17 08:26 69 124/84 08/11/17 08:24 124/84 08/11/17 08:00 98.1 69 21 124/84 100 Room Air 98.1 08/11/17 04:00 98.1 67 20 159/91 100 98.1 08/11/17 00:00 98.2 72 20 146/98 100 98.2 08/10/17 20:00 97.9 77 20 129/81 100 97.9 08/10/17 18:46 87 130/75 08/10/17 16:00 97.9 83 20 140/78 97 97.9 Intake and Output 08/10/17 08/11/17 19:00 07:00 Intake Total 500 ml Output Total 550 ml Balance -50 ml Intake Oral 500 ml Output Urine Total 550 ml # Voids 1 Laboratory Tests 08/11/17 05:10: White Blood Count 7.0, Red Blood Count 3.54L, Hemoglobin 10.3L, Hematocrit 32.4L , Mean Corpuscular Volume 91, Mean Corpuscular Hemoglobin 29.0, Mean Corpuscular Hemoglobin Concent 31.7L, Red Cell Distribution Width 13.7, Platelet Count 245, Mean Platelet Volume 5.4L, Neutrophils (%) (Auto) 61.9, Lymphocytes (%) (Auto) 28.3, Monocytes (%) (Auto) 7.4, Eosinophils (%) (Auto) 1.4, Basophils (%) (Auto) 1.0, Sodium Level 141, Potassium Level 3.8, Chloride Level 105, Carbon Dioxide Level 30, Anion Gap 6, Blood Urea Nitrogen 17, Creatinine 0.7, Estimat Glomerular Filtration Rate > 60, Glucose Level 93, Calcium Level 8.4L Height (Feet): 5 Height (Inches): 3.00 Weight (Pounds): 140 General Appearance: no apparent distress, alert Neurologic: oriented x 3, responsive, depressed affect Alexia Dietrich M.D. Aug 11, 2017 12:24
--- NOTE | 2017-08-11 13:17 | Nephrology Progress Note ---
Assessment/Plan Problem List: (1) HTN (hypertension) (2) Opioid dependence (3) Anemia Assessment HTN OOC, now controlled Anemia UTI Chronic Pain DM Plan Plan: Add Norvasc & Zestril Pain management start rocephin for e coli uti check labs per orders ? DC Subjective ROS Limited/Unobtainable: No Constitutional: Reports: malaise Objective Objective Last 24 Hour Vital Signs Date Time Temp Pulse Resp B/P (MAP) Pulse Ox O2 Delivery O2 Flow Rate FiO2 08/11/17 12:00 98.2 74 20 159/81 99 Room Air 98.2 08/11/17 11:07 74 159/61 08/11/17 08:26 69 124/84 08/11/17 08:24 124/84 08/11/17 08:00 98.1 69 21 124/84 100 Room Air 98.1 08/11/17 04:00 98.1 67 20 159/91 100 98.1 08/11/17 00:00 98.2 72 20 146/98 100 98.2 08/10/17 20:00 97.9 77 20 129/81 100 97.9 08/10/17 18:46 87 130/75 08/10/17 16:00 97.9 83 20 140/78 97 97.9 Intake and Output 08/10/17 08/11/17 19:00 07:00 Intake Total 500 ml Output Total 550 ml Balance -50 ml Intake Oral 500 ml Output Urine Total 550 ml # Voids 1 Laboratory Tests 08/11/17 05:10: White Blood Count 7.0, Red Blood Count 3.54L, Hemoglobin 10.3L, Hematocrit 32.4L , Mean Corpuscular Volume 91, Mean Corpuscular Hemoglobin 29.0, Mean Corpuscular Hemoglobin Concent 31.7L, Red Cell Distribution Width 13.7, Platelet Count 245, Mean Platelet Volume 5.4L, Neutrophils (%) (Auto) 61.9, Lymphocytes (%) (Auto) 28.3, Monocytes (%) (Auto) 7.4, Eosinophils (%) (Auto) 1.4, Basophils (%) (Auto) 1.0, Sodium Level 141, Potassium Level 3.8, Chloride Level 105, Carbon Dioxide Level 30, Anion Gap 6, Blood Urea Nitrogen 17, Creatinine 0.7, Estimat Glomerular Filtration Rate > 60, Glucose Level 93, Calcium Level 8.4L Height (Feet): 5 Height (Inches): 3.00 Weight (Pounds): 140 General Appearance: no apparent distress Cardiovascular: normal rate Respiratory/Chest: decreased breath sounds Abdomen: soft Objective no change LESLY DUKE Aug 11, 2017 13:17
--- NOTE | 2017-08-11 14:24 | General Progress Note ---
Assessment/Plan Problem List: (1) Azotemia ICD Codes: R79.89 - Other specified abnormal findings of blood chemistry SNOMED: 437798593 (2) Opioid dependence ICD Codes: F11.20 - Opioid dependence, uncomplicated SNOMED: 52040649 (3) Anemia ICD Codes: D64.9 - Anemia, unspecified SNOMED: 964350774 (4) Hypoalbuminemia ICD Codes: E88.09 - Other disorders of plasma-protein metabolism, not elsewhere classified SNOMED: 852779390 (5) HTN (hypertension) ICD Codes: I10 - Essential (primary) hypertension SNOMED: 13064513 (6) Muscle spasm ICD Codes: M62.838 - Other muscle spasm SNOMED: 05153699, 75755848 (7) Chronic pain syndrome ICD Codes: G89.4 - Chronic pain syndrome SNOMED: 144951894 (8) pain Status: unchanged Assessment/Plan ot pt diet pain control cbc bmp in am gi eval pain eval Subjective Constitutional: Reports: weakness Allergies: Coded Allergies: IRON (Verified Allergy, Unknown, Rash, 08/09/17) had nausea, vomiting and rashes METHADONE (Verified Allergy, Unknown, 06/04/17) MORPHINE (Verified Allergy, Unknown, 06/04/17) PREGABALIN (Verified Allergy, Unknown, 06/04/17) All Systems: reviewed and negative except above Subjective c/o leg and abd pain 11/16 Objective Last 24 Hour Vital Signs Date Time Temp Pulse Resp B/P (MAP) Pulse Ox O2 Delivery O2 Flow Rate FiO2 08/11/17 12:00 98.2 74 20 159/81 99 Room Air 98.2 08/11/17 11:07 74 159/61 08/11/17 08:26 69 124/84 08/11/17 08:24 124/84 08/11/17 08:00 98.1 69 21 124/84 100 Room Air 98.1 08/11/17 04:00 98.1 67 20 159/91 100 98.1 08/11/17 00:00 98.2 72 20 146/98 100 98.2 08/10/17 20:00 97.9 77 20 129/81 100 97.9 08/10/17 18:46 87 130/75 08/10/17 16:00 97.9 83 20 140/78 97 97.9 Intake and Output 08/10/17 08/11/17 19:00 07:00 Intake Total 500 ml Output Total 550 ml Balance -50 ml Intake Oral 500 ml Output Urine Total 550 ml # Voids 1 Laboratory Tests 08/11/17 05:10: White Blood Count 7.0, Red Blood Count 3.54L, Hemoglobin 10.3L, Hematocrit 32.4L , Mean Corpuscular Volume 91, Mean Corpuscular Hemoglobin 29.0, Mean Corpuscular Hemoglobin Concent 31.7L, Red Cell Distribution Width 13.7, Platelet Count 245, Mean Platelet Volume 5.4L, Neutrophils (%) (Auto) 61.9, Lymphocytes (%) (Auto) 28.3, Monocytes (%) (Auto) 7.4, Eosinophils (%) (Auto) 1.4, Basophils (%) (Auto) 1.0, Sodium Level 141, Potassium Level 3.8, Chloride Level 105, Carbon Dioxide Level 30, Anion Gap 6, Blood Urea Nitrogen 17, Creatinine 0.7, Estimat Glomerular Filtration Rate > 60, Glucose Level 93, Calcium Level 8.4L Height (Feet): 5 Height (Inches): 3.00 Weight (Pounds): 140 General Appearance: lethargic EENT: normal ENT inspection Neck: normal alignment Cardiovascular: normal peripheral pulses, normal rate, regular rhythm Respiratory/Chest: chest wall non-tender, lungs clear, normal breath sounds Abdomen: normal bowel sounds, non tender, soft Extremities: normal inspection Edema: no edema noted Arm (L), no edema noted Arm (R), no edema noted Leg (L), no edema noted Leg (R), no edema noted Pedal (L), no edema noted Pedal (R), no edema noted Generalized Neurologic: responsive, motor weakness Skin: normal pigmentation, warm/dry JUAN FRANCISCO OCAMPO Aug 11, 2017 14:24
[2017-08-11] MEDS: cefTRIAXone 1 GM in D5W 55 ML IVPB SCH (14:25)
--- NOTE | 2017-08-11 15:41 | Diagnostic Imaging Report ---
Indication: Abdominal pain Technique: Continuous helical transaxial imaging of the abdomen and pelvis was obtained from the lung bases to the pubic symphysis during intravenous contrast administration. Coronal 2-D reformats were also obtained. Study obtained in a Siemens sensation [address] Automatic Exposure Control was utilized. Total Dose length Product (DLP): [address] Dose Index Volume (CTDIvol): 0.1 x 15.03 mGy Comparison: None Findings: Mild subsegmental atelectasis at the lung bases are noted. Liver and spleen are unremarkable. The pancreas, gallbladder, adrenal glands and kidneys show no abnormalities. Moderate fecal retention in the rectum and distal sigmoid colon noted. No evidence of bowel obstruction. Arterial calcifications in aorta noted. Lower lumbar surgery and posterior instrumented fusion noted. Some contrast suspected within the thecal sac or epidural space in the lumbosacral region. Query for any recent procedure. There is complete interbody fusion of L4-5. Left unilateral pedicle screws fusion rods noted at this level. Intrathecal catheter entering the upper part of the lumbar spine noted at T12 and L1. IMPRESSION: No acute findings in the abdomen or pelvis identified. Previous lower lumbar instrumentation/fusion as discussed above. Mild atherosclerotic vascular disease. Moderate fecal retention. Mild basal atelectasis The CT scanner at [facility] is accredited by the [employer] and the scans are performed using dose optimization techniques as appropriate to a performed exam including Automatic Exposure control.
[2017-08-11 15:59] VITALS: BP 123/82
[2017-08-11 20:00] VITALS: BP 134/73
[2017-08-11] MEDS: Dyna-Hex 2% Top Sol 2oz TOPIC SCH (20:29)
[2017-08-12] VITALS: BP 118/72
[2017-08-12 04:00] VITALS: BP 172/95
[2017-08-12 07:52] LABS: BASOPHILS % (AUTO) 1.4 % (0.0-2.0); HEMATOCRIT 32.2 % (37.0-47.0); HEMOGLOBIN 10.4 G/DL (12.0-16.0); MEAN CORPUSCULAR VOLUME 91 FL (80-99); MONOCYTES % (AUTO) 4.3 % (1.0-10.0); NEUTROPHILS % (AUTO) 65.3 % (45.0-75.0); PLATELET COUNT 274 K/UL (150-450); RED BLOOD COUNT 3.54 M/UL (4.20-5.40); RED CELL DISTRIBUTION WIDTH 13.4 % (11.6-14.8); WHITE BLOOD COUNT 6.8 K/UL (4.8-10.8)
[2017-08-12 08:00] VITALS: BP 157/92
[2017-08-12 08:07] LABS: ANION GAP 6 mmol/L (5-15); BLOOD UREA NITROGEN 18 mg/dL (7-18); CALCIUM 8.6 MG/DL (8.5-10.1); CARBON DIOXIDE 29 MMOL/L (21-32); CHLORIDE 106 MMOL/L (98-107); CREATININE 0.7 MG/DL (0.55-1.30); POTASSIUM 3.8 MMOL/L (3.5-5.1); SODIUM 141 MMOL/L (136-145)
[2017-08-12] MEDS: Metoprolol Succinate XL 50mg tab ORAL SCH (09:02)
[2017-08-12] MEDS: Xarelto 10mg tab ORAL SCH (09:02)
[2017-08-12] MEDS: Lisinopril 10mg tab ORAL SCH (09:02)
[2017-08-12 12:00] VITALS: BP 116/69
--- NOTE | 2017-08-12 12:43 | General Progress Note ---
Assessment/Plan Problem List: (1) Azotemia ICD Codes: R79.89 - Other specified abnormal findings of blood chemistry SNOMED: 672376972 (2) Opioid dependence ICD Codes: F11.20 - Opioid dependence, uncomplicated SNOMED: 31696225 (3) Anemia ICD Codes: D64.9 - Anemia, unspecified SNOMED: 709839413 (4) Hypoalbuminemia ICD Codes: E88.09 - Other disorders of plasma-protein metabolism, not elsewhere classified SNOMED: 203784517 (5) HTN (hypertension) ICD Codes: I10 - Essential (primary) hypertension SNOMED: 11497314 (6) Muscle spasm ICD Codes: M62.838 - Other muscle spasm SNOMED: 27863214, 83471412 (7) Chronic pain syndrome ICD Codes: G89.4 - Chronic pain syndrome SNOMED: 083728867 (8) pain Status: stable, progressing, tolerating diet Assessment/Plan ot pt diet pain control dc if clear Subjective Constitutional: Reports: weakness Allergies: Coded Allergies: IRON (Verified Allergy, Unknown, Rash, 08/09/17) had nausea, vomiting and rashes METHADONE (Verified Allergy, Unknown, 06/04/17) MORPHINE (Verified Allergy, Unknown, 06/04/17) PREGABALIN (Verified Allergy, Unknown, 06/04/17) All Systems: reviewed and negative except above Subjective c/o sl leg and abd pain Objective Last 24 Hour Vital Signs Date Time Temp Pulse Resp B/P (MAP) Pulse Ox O2 Delivery O2 Flow Rate FiO2 08/12/17 12:00 98.5 59 18 116/69 98 98.5 08/12/17 09:03 72 157/92 08/12/17 09:02 157/92 08/12/17 09:02 72 157/92 08/12/17 08:00 97.8 72 17 157/92 95 97.8 08/12/17 04:00 98.1 72 20 172/95 97 98.1 08/12/17 00:00 98.4 65 20 118/72 100 98.4 08/11/17 20:00 98.1 52 20 134/73 97 98.1 08/11/17 18:56 74 134/72 08/11/17 15:59 98.9 76 19 123/82 99 Room Air 98.9 Intake and Output 08/11/17 08/12/17 19:00 07:00 Intake Total 535 ml 240 ml Balance 535 ml 240 ml Intake Oral 480 ml 240 ml IV Total 55 ml # Voids 1 Laboratory Tests 08/12/17 06:45: White Blood Count 6.8, Red Blood Count 3.54L, Hemoglobin 10.4L, Hematocrit 32.2L , Mean Corpuscular Volume 91, Mean Corpuscular Hemoglobin 29.2, Mean Corpuscular Hemoglobin Concent 32.1, Red Cell Distribution Width 13.4, Platelet Count 274, Mean Platelet Volume 5.5L, Neutrophils (%) (Auto) 65.3, Lymphocytes ( %) (Auto) 28.0, Monocytes (%) (Auto) 4.3, Eosinophils (%) (Auto) 1.0, Basophils (%) (Auto) 1.4, Sodium Level 141, Potassium Level 3.8, Chloride Level 106, Carbon Dioxide Level 29, Anion Gap 6, Blood Urea Nitrogen 18, Creatinine 0.7, Estimat Glomerular Filtration Rate > 60, Glucose Level 99, Calcium Level 8.6 Height (Feet): 5 Height (Inches): 3.00 Weight (Pounds): 140 General Appearance: alert EENT: normal ENT inspection Neck: normal alignment Cardiovascular: normal peripheral pulses, normal rate, regular rhythm Respiratory/Chest: chest wall non-tender, lungs clear, normal breath sounds Abdomen: normal bowel sounds, non tender, soft Extremities: normal inspection Edema: no edema noted Arm (L), no edema noted Arm (R), no edema noted Leg (L), no edema noted Leg (R), no edema noted Pedal (L), no edema noted Pedal (R), no edema noted Generalized Neurologic: responsive, motor weakness Skin: normal pigmentation, warm/dry JUAN FRANCISCO OCAMPO Aug 12, 2017 12:43
[2017-08-12] MEDS ORDERED: FOLIC ACID1 MG ORAL (13:12)
[2017-08-12] MEDS ORDERED: HYDRALAZINE HCL25 M1 ORAL (13:13)
[2017-08-12] MEDS ORDERED: LISINOPRIL5 MG ORAL (13:14)
[2017-08-12] MEDS ORDERED: TIZANIDINE HCL4 MG ORAL (13:15)
--- NOTE | 2017-08-12 13:35 | Nephrology Progress Note ---
Assessment/Plan Problem List: (1) HTN (hypertension) (2) Opioid dependence (3) Anemia Assessment HTN OOC, now controlled Anemia UTI Chronic Pain DM Plan Plan: Add Norvasc & Zestril Pain management start rocephin for e coli uti check labs per orders ? DC Subjective ROS Limited/Unobtainable: No Objective Objective Last 24 Hour Vital Signs Date Time Temp Pulse Resp B/P (MAP) Pulse Ox O2 Delivery O2 Flow Rate FiO2 08/12/17 12:00 98.5 59 18 116/69 98 98.5 08/12/17 09:03 72 157/92 08/12/17 09:02 157/92 08/12/17 09:02 72 157/92 08/12/17 08:00 97.8 72 17 157/92 95 97.8 08/12/17 04:00 98.1 72 20 172/95 97 98.1 08/12/17 00:00 98.4 65 20 118/72 100 98.4 08/11/17 20:00 98.1 52 20 134/73 97 98.1 08/11/17 18:56 74 134/72 08/11/17 15:59 98.9 76 19 123/82 99 Room Air 98.9 Intake and Output 08/11/17 08/12/17 19:00 07:00 Intake Total 535 ml 240 ml Balance 535 ml 240 ml Intake Oral 480 ml 240 ml IV Total 55 ml # Voids 1 Laboratory Tests 08/12/17 06:45: White Blood Count 6.8, Red Blood Count 3.54L, Hemoglobin 10.4L, Hematocrit 32.2L , Mean Corpuscular Volume 91, Mean Corpuscular Hemoglobin 29.2, Mean Corpuscular Hemoglobin Concent 32.1, Red Cell Distribution Width 13.4, Platelet Count 274, Mean Platelet Volume 5.5L, Neutrophils (%) (Auto) 65.3, Lymphocytes ( %) (Auto) 28.0, Monocytes (%) (Auto) 4.3, Eosinophils (%) (Auto) 1.0, Basophils (%) (Auto) 1.4, Sodium Level 141, Potassium Level 3.8, Chloride Level 106, Carbon Dioxide Level 29, Anion Gap 6, Blood Urea Nitrogen 18, Creatinine 0.7, Estimat Glomerular Filtration Rate > 60, Glucose Level 99, Calcium Level 8.6 Height (Feet): 5 Height (Inches): 3.00 Weight (Pounds): 140 General Appearance: no apparent distress Objective no change LESLY DUKE Aug 12, 2017 13:35
--- NOTE | 2017-08-12 14:13 | Neurology Progress Note ---
Interim History Interim History ROS Limited/Unobtainable: No Complaints: less severe pain/muscle spasm ,R hip low back Events: briefly better with meds , request q 2hr dilaudid/soma. refused baclofen"in Objective Physical Exam Last Vital Signs Date Time Temp Pulse Resp B/P (MAP) Pulse Ox O2 Delivery O2 Flow Rate FiO2 08/12/17 12:00 98.5 59 18 116/69 98 98.5 08/11/17 15:59 Room Air Laboratory Tests Test 08/12/17 06:45 White Blood Count 6.8 K/UL (4.8-10.8) Red Blood Count 3.54 M/UL (4.20-5.40) L Hemoglobin 10.4 G/DL (12.0-16.0) L Hematocrit 32.2 % (37.0-47.0) L Mean Corpuscular Volume 91 FL (80-99) Mean Corpuscular Hemoglobin 29.2 PG (27.0-31.0) Mean Corpuscular Hemoglobin Concent 32.1 G/DL (32.0-36.0) Red Cell Distribution Width 13.4 % (11.6-14.8) Platelet Count 274 K/UL (150-450) Mean Platelet Volume 5.5 FL (6.5-10.1) L Neutrophils (%) (Auto) 65.3 % (45.0-75.0) Lymphocytes (%) (Auto) 28.0 % (20.0-45.0) Monocytes (%) (Auto) 4.3 % (1.0-10.0) Eosinophils (%) (Auto) 1.0 % (0.0-3.0) Basophils (%) (Auto) 1.4 % (0.0-2.0) Sodium Level 141 MMOL/L (136-145) Potassium Level 3.8 MMOL/L (3.5-5.1) Chloride Level 106 MMOL/L (98-107) Carbon Dioxide Level 29 MMOL/L (21-32) Anion Gap 6 mmol/L (5-15) Blood Urea Nitrogen 18 mg/dL (7-18) Creatinine 0.7 MG/DL (0.55-1.30) Estimat Glomerular Filtration Rate > 60 mL/min (>60) Glucose Level 99 MG/DL (74-106) Calcium Level 8.6 MG/DL (8.5-10.1) General: well developed, well nourished, other - abdomen spasm Head: normocophalic, atraumatic Neck: no rigidity Neurologic Exam Mental Status: awake, alert, oriented x4, normal cognition, good mathematical skills, normal recent memory, normal remote memory, preserved visuospatial function, other - very anxious 2/2 pain/cramps Speech: normal speech, no dysarthia Language: normal language, no aphasia Cranial Nerve II: fundus normal, visual montero, no papilledema Cranial Nerves III, IV, : PERRLA, EOMI, pupils Cranial Nerve V: normal facial sensations, temporales function normal, masseters function normal, pterygoids function normal Cranial Nerve VII: no facial asymmetry, normal facial expressions Cranial Nerve VIII: normal hearing, no nystagmus Cranial Nerve IX: normal palate elevation, gag response Cranial Nerve X: no voice hoarseness Cranial Nerve XI: SCM symmetric, trapezii function normal Cranial Nerve XII: tongue midline, no tongue atrophy/fasciculations Motor System: normal muscle tone, strength 5/5, other - R foot drop Sensory: normal light touch Coordination: normal finger to nose bilaterally Deep Tendon Reflexes: 0 bicep (L), 0 bicep (R), 0 tricep (L), 0 tricep (R), 0 brachioradialis (L), 0 brachioradialis (R), 0 knee (L), 0 knee (R), 0 ankle (L) , 0 ankle (R) Reflexes: mute plantar (L), mute plantar (R) Impression/Recommendations Problems: (1) spasmodic severe pain (2) r/o lumbar arachnoiditis (3) Benzodiazepine dependence (4) Chronic pain syndrome (5) HTN (hypertension) (6) Opioid dependence Status: stable, progressing, tolerating diet Recommendations #[id number] Pain mgmt----- for opiates adjustment CT abdomen/Lumbar spine -no acute lesions neurontin 600mgtid tizanidine 4mg tid d/c baclofen BOTOX as outpatient ok d/c home MITUL MILTON Aug 12, 2017 14:13
--- NOTE | 2017-08-12 23:11 | General Progress Note ---
Assessment/Plan Assessment/Plan opioid dependence anxiety d/o mdd the pt is refusing pain meds adjustment. -Flexeril -Neurontin -Ativan -Klonopin -d/w nurse Subjective Allergies: Coded Allergies: IRON (Verified Allergy, Unknown, Rash, 08/09/17) had nausea, vomiting and rashes METHADONE (Verified Allergy, Unknown, 06/04/17) MORPHINE (Verified Allergy, Unknown, 06/04/17) PREGABALIN (Verified Allergy, Unknown, 06/04/17) Subjective the pt is med seeking the pt is the same does not appear to be in pain but says she is. Objective Last 24 Hour Vital Signs Date Time Temp Pulse Resp B/P (MAP) Pulse Ox O2 Delivery O2 Flow Rate FiO2 08/12/17 12:00 98.5 59 18 116/69 98 98.5 08/12/17 09:03 72 157/92 08/12/17 09:02 157/92 08/12/17 09:02 72 157/92 08/12/17 08:00 97.8 72 17 157/92 95 97.8 08/12/17 04:00 98.1 72 20 172/95 97 98.1 08/12/17 00:00 98.4 65 20 118/72 100 98.4 Intake and Output 08/11/17 08/12/17 19:00 07:00 Intake Total 535 ml 240 ml Balance 535 ml 240 ml Intake Oral 480 ml 240 ml IV Total 55 ml # Voids 1 Laboratory Tests 08/12/17 06:45: White Blood Count 6.8, Red Blood Count 3.54L, Hemoglobin 10.4L, Hematocrit 32.2L , Mean Corpuscular Volume 91, Mean Corpuscular Hemoglobin 29.2, Mean Corpuscular Hemoglobin Concent 32.1, Red Cell Distribution Width 13.4, Platelet Count 274, Mean Platelet Volume 5.5L, Neutrophils (%) (Auto) 65.3, Lymphocytes ( %) (Auto) 28.0, Monocytes (%) (Auto) 4.3, Eosinophils (%) (Auto) 1.0, Basophils (%) (Auto) 1.4, Sodium Level 141, Potassium Level 3.8, Chloride Level 106, Carbon Dioxide Level 29, Anion Gap 6, Blood Urea Nitrogen 18, Creatinine 0.7, Estimat Glomerular Filtration Rate > 60, Glucose Level 99, Calcium Level 8.6 Height (Feet): 5 Height (Inches): 3.00 Weight (Pounds): 140 Alexia Dietrich M.D. Aug 12, 2017 23:11
--- NOTE | 2017-08-13 14:04 | Discharge Summary ---
Discharge Summary Discharge Summary Discharge Summary DATE OF ADMISSION: 08/04/2017 DATE OF DISCHARGE: 08/12/2017 CONSULTANTS: Dr. Alexia Hawkins ] BRIEF HOSPITAL COURSE: Patient is a 52-year-old female who presented to the emergency department complaining of 10 out of 10 pain/cramping in the right leg pain radiating up to the hips. Symptoms started after x-ray imaging performed on the lumbar spine which included flexion and extension views. She denied any trauma or fall. She reported to have a history of spinal fusion that had complications and resulted in cauda equina, she continued to have right-sided lower extremity neurological deficit since 2009. She is on daily chronic pain and had been on Soma, morphine, Dilaudid and Ativan, however medications did not help with symptoms. She had chronic right foot drop. She had problems with urinary retention before requiring urinary catheterization however she is able to urinate mostly on her own. She denied incontinence. On evaluation at ED, blood work showed mild anemia. CMP was unremarkable, urinalysis positive for UTI. She had an EKG with normal sinus rhythm and T- wave inversion in multiple leads. She continued to have pain without any relief of symptoms requiring need for IV opiates. She was admitted to medical floor for chronic pain syndrome. Venous duplex of the lower extremity was negative for DVT bilaterally. Patient has anxiety disorder and major depressive disorder, she was seen by psychiatrist and was given Ativan, and Klonopin. She was evaluated by Dr. Mckeon, tizanidine and Neurontin was given. Urine culture with growth of Escherichia coli, she was given Rocephin. She was given lisinopril, metoprolol and amlodipine for blood pressure control. He refused changes to her pain medications. Spine CT showed extensive post surgical changes on the lower lumbar spine with degenerative changes. There was no definite abscess or Evidence of Acute Inflammation, No Evidence of Acute Bony Trauma. Abdominal and pelvic CT was also negative. She was given PT and OT and was eventually cleared for discharge home. FINAL DIAGNOSES: Urinary tract infection with Escherichia coli Chronic pain syndrome Hypertension out of control Anemia diabetes mellitus type 2 Opioid dependence Muscle spasms Status post lumbar spine fusion surgery with persistent severe low back pain and intermittent muscle spasms as well as right foot drop Status post neurostimulator placement DISPOSITION: Patient was discharged home with home health I have been assigned to dictate discharge summary on this account, and I was not involved in the patient's management. Alejandra Merchant NP Aug 13, 2017 14:04
== END 2017-08-12 15:26 | disposition home health service (06) | DRG 552 ==
LOC: EMR 13:33 → 4E 15:00 → EDBEDREQ 16:52
DX: M54.9 Dorsalgia, unspecified (principal); N39.0 Urinary tract infection, site not specified; F11.20 Opioid dependence, uncomplicated; F13.20 Sedative, hypnotic or anxiolytic dependence, uncomplicated; M79.604 Pain in right leg; F32.9 Major depressive disorder, single episode, unspecified; F41.9 Anxiety disorder, unspecified; I10 Essential (primary) hypertension; K21.9 Gastro-esophageal reflux disease without esophagitis; E88.09 Other disorders of plasma-protein metabolism, not elsewhere classified; G89.4 Chronic pain syndrome; D64.9 Anemia, unspecified; M62.838 Other muscle spasm; F17.200 Nicotine dependence, unspecified, uncomplicated; M21.371 Foot drop, right foot; B96.20 Unspecified Escherichia coli [E. coli] as the cause of diseases classified elsewhere; Z98.1 Arthrodesis status
CPT/HCPCS: 36415; 72133; 74177; 80048; 80053; 80061; 81003; 82550; 82607; 82728; 82746; 82977; 83036; 83540; 83550; 83735; 83880; 84100; 84443; 84484; 84550; 85025; 86140; 87086; 87181; 93005; 93970; 97803; 99285

== ENCOUNTER 2017-09-05 21:31 | Inpatient (IN) | payer MEDICARE, MEDICAID ==
[~2017-09-05] VITALS: Ht 160 cm; Wt 63.5 kg
[~2017-09-05 21:31] MED LIST changes: +BENADRYL25 M3 PO; +DICYCLOMINE HCL20 M1 PO; +DILAUDID4 MG ORAL; +FOLIC ACID1 MG ORAL; +HYDRALAZINE HCL25 M1 ORAL; +LEVSIN-SL0.125 MG SL; +LISINOPRIL5 MG ORAL; +LORAZEPAM1 MG ORAL; +SOMA350 MG PO; +TIZANIDINE HCL4 MG ORAL
--- NOTE | 2017-09-05 21:51 | Emergency Room Report ---
History of Present Illness General Chief Complaint: Multiple Trauma/Fall Source: Patient, Medical Record Present Illness HPI This is a 52-year-old female with history of back surgery and stimulator placed. She has history of chronic back pain. She presents with chief complaint of right-sided back pain after a fall. She says she tripped. This occurred couple days ago. Pain is severe 10 out of 10. No nausea no vomiting. She is normally weak on the right side. Also had bad vision. No head injury. No loss of consciousness. Pain is 10 out of 10. No radiation. Worse with movement. Allergies: Coded Allergies: IRON (Verified Allergy, Unknown, Rash, 08/09/17) had nausea, vomiting and rashes METHADONE (Verified Allergy, Unknown, 06/04/17) PREGABALIN (Verified Allergy, Unknown, 06/04/17) Patient History Past Medical History: see triage record, old chart reviewed Past Surgical History: other Pertinent Family History: none Social History: Denies: smoking Now: No Immunizations: other Reviewed Nursing Documentation: PMH: Agreed; PSxH: Agreed Nursing Documentation-PMH Past Medical History: No History, Except For Hx Cardiac Problems: Yes Hx Hypertension: Yes Hx Cancer: No Hx Gastrointestinal Problems: Yes - GERD Hx Neurological Problems: Yes - Cauda Equina Syndrome Hx Neurologic Surgery: Yes - 2010 Spinal surgery Review of Systems Eye: Denies: eye pain, blurred vision ENT: Denies: ear pain, nose congestion, throat swelling Respiratory: Denies: cough, shortness of breath Cardiovascular: Denies: chest pain, palpitations Gastrointestinal: Denies: abdominal pain, diarrhea, nausea, vomiting Musculoskeletal: Reports: back pain; Denies: joint pain Skin: Denies: rash Neurological: Denies: headache, numbness Endocrine: Denies: increased thirst, increased urine Hematologic/Lymphatic: Denies: easy bruising All Other Systems: negative except mentioned in HPI Physical Exam Vital Signs Date Time Temp Pulse Resp B/P (MAP) Pulse Ox O2 Delivery O2 Flow Rate FiO2 09/05/17 21:39 98.4 74 18 152/107 98 Room Air 98.4 Sp02 EP Interpretation: reviewed, normal General Appearance: well appearing, no apparent distress, alert Head: normocephalic, atraumatic Eyes: bilateral eye PERRL, bilateral eye EOMI ENT: hearing grossly normal, normal pharynx Neck: full range of motion, supple, no meningismus Respiratory: chest non-tender, lungs clear, normal breath sounds Cardiovascular #1: regular rate, rhythm, no murmur Gastrointestinal: normal bowel sounds, non tender, no mass, no organomegaly, no bruit, non-distended Musculoskeletal: normal range of motion, tender - Diffuse tenderness to the right lower paraspinous muscle. No deformity. No anesthesia. Psychiatric: mood/affect normal Skin: warm/dry Medical Decision Making Diagnostic Impression: Primary Impression: Back pain Qualified Codes: M54.5 - Low back pain Additional Impressions: Chronic pain syndrome Opioid dependence Qualified Codes: F11.20 - Opioid dependence, uncomplicated ER Course Patient presents with general weakness and acute exacerbation of chronic pain. She said she can't bear weight on her right leg any more. No evidence of any fracture dislocation. Because of intractable pain, will admit for further workup. I contacted Dr. Magallon for admission. CT/MRI/US Diagnostic Results CT/MRI/US Diagnostic Results : Imaging Test Ordered: CT lumbar spine Impression Read by radiologist. Postsurgical changes. Last Vital Signs Date Time Temp Pulse Resp B/P (MAP) Pulse Ox O2 Delivery O2 Flow Rate FiO2 09/05/17 21:39 98.4 74 18 152/107 98 Room Air 98.4 Status: improved Disposition: ADMITTED INPATIENT Condition: Serious TANYA SIBLEY M.D. Sep 05, 2017 21:51
[2017-09-05 22:00] VITALS: BP 152/107
[2017-09-05 23:10] LABS: BASOPHILS % (AUTO) 1.5 % (0.0-2.0); EOSINOPHILS % (AUTO) 2.3 % (0.0-3.0); HEMATOCRIT 34.5 % (37.0-47.0); HEMOGLOBIN 11.8 G/DL (12.0-16.0); LYMPHOCYTES % (AUTO) 34.5 % (20.0-45.0); MEAN CORPUSCULAR VOLUME 91 FL (80-99); MONOCYTES % (AUTO) 6.8 % (1.0-10.0); NEUTROPHILS % (AUTO) 54.9 % (45.0-75.0); PLATELET COUNT 251 K/UL (150-450); RED BLOOD COUNT 3.81 M/UL (4.20-5.40); WHITE BLOOD COUNT 5.8 K/UL (4.8-10.8)
[2017-09-05 23:20] LABS: ANION GAP 6 mmol/L (5-15); BLOOD UREA NITROGEN 13 mg/dL (7-18); CARBON DIOXIDE 30 MMOL/L (21-32); CHLORIDE 106 MMOL/L (98-107); CREATININE 0.7 MG/DL (0.55-1.30); POTASSIUM 3.9 MMOL/L (3.5-5.1); SODIUM 141 MMOL/L (136-145)
[2017-09-06] VITALS (8 sets, daily range): BP systolic 133–174; BP diastolic 82–121
[2017-09-06] MEDS ORDERED: Norco 5mg/325mg tab ORAL ONE (00:15)
[2017-09-06] MEDS ORDERED: Morphine Sulfate 4mg/ml Inj IVP ONE (00:15)
[2017-09-06] MEDS ORDERED: HydrALAZINE 25mg tab ORAL PRN (02:45)
[2017-09-06] MEDS: D5 1/2NS 1,000 ML IV SCH ×2 (03:48→20:39)
[2017-09-06] MEDS ORDERED: Norco 5mg/325mg tab ORAL PRN (08:45)
--- NOTE | 2017-09-06 08:59 | Consultation ---
History of Present Illness General Date patient seen: Sep 06, 2017 Chief Complaint: Multiple Trauma/Fall Present Illness Allergies: Coded Allergies: IRON (Verified Allergy, Unknown, Rash, 08/09/17) had nausea, vomiting and rashes METHADONE (Verified Allergy, Unknown, 06/04/17) MORPHINE (Verified Allergy, Unknown, 09/06/17) PREGABALIN (Verified Allergy, Unknown, 06/04/17) Medication History Scheduled Amlodipine Besylate (Norvasc), 10 MG ORAL DAILY, (Reported) Baclofen* (Lioresal*), 20 MG ORAL THREE TIMES A DAY, (Reported) Baclofen* (Lioresal*), 20 MG ORAL EVERY 6 HOURS, (Reported) Carisoprodol* (Soma*), 350 MG PO TID, (Reported) Clonazepam* (Klonopin*), 1 MG ORAL Q6H, (Reported) Clonazepam* (Klonopin*), 1 MG ORAL BID, (Reported) Dicyclomine Hcl (Dicyclomine Hcl), 20 MG PO FOUR TIMES A DAY, (Reported) Diphenhydramine HCl (Benadryl), 25 MG PO Q6HR, (Reported) Folic Acid* (Folic Acid*), 2 MG ORAL DAILY, (Reported) Gabapentin* (Gabapentin*), 300 MG ORAL THREE TIMES A DAY, (Reported) Hydromorphone HCl (Dilaudid), 4 MG ORAL EVERY 4 HOURS, (Reported) Hyoscyamine* (Levsinex*), 0.125 MG ORAL EVERY 12 HOURS, (Reported) Lisinopril (Lisinopril*), 10 MG ORAL DAILY, (Reported) Lorazepam* (Lorazepam*), 1 MG ORAL THREE TIMES A DAY, (Reported) Losartan Potassium* (Losartan Potassium*), 50 MG ORAL DAILY, (Reported) Losartan Potassium* (Losartan Potassium*), 50 MG ORAL BID, (Reported) Metoprolol Succinate* (Toprol Xl*), 50 MG ORAL DAILY, (Reported) Omeprazole (Omeprazole), 20 MG ORAL DAILY, (Reported) Rivaroxaban (Xarelto*), 20 MG ORAL DAILY, (Reported) Ropinirole Hcl* (Requip*), 1 MG ORAL THREE TIMES A DAY, (Reported) Tizanidine Hcl* (Zanaflex*), 4 MG ORAL THREE TIMES A DAY, (Reported) Scheduled PRN Hydralazine Hcl* (Hydralazine Hcl*), 25 MG ORAL EVERY 4 HOURS PRN for PRN, ( Reported) Miscellaneous Medications Hydromorphone Hcl (Dilaudid), 4 MG PO, (Reported) Hyoscyamine Sulfate* (Levsin-Sl*), 0.125 MG SL, (Reported) Morphine Sulfate (Rosanne), 30 MG PO, (Reported) Patient History Healthcare decision maker Naz Carmona Resuscitation status Advanced Directive on File No Physical Exam Last 24 Hour Vital Signs Date Time Temp Pulse Resp B/P (MAP) Pulse Ox O2 Delivery O2 Flow Rate FiO2 09/06/17 08:00 98.0 83 20 143/98 98 98.0 09/06/17 04:00 97.7 102 22 157/93 99 Room Air 97.7 09/06/17 00:50 98.9 118 24 174/121 98 Room Air 98.9 09/06/17 00:40 98.9 118 24 174/121 98 Room Air 98.9 09/06/17 00:16 209.1 09/06/17 00:12 174/121 09/05/17 22:00 209.1 74 18 152/107 98 Room Air 209.1 09/05/17 21:54 98.4 09/05/17 21:39 98.4 74 18 152/107 98 Room Air 98.4 Intake and Output 09/05/17 09/06/17 19:00 07:00 Intake Total 180 ml Balance 180 ml Intake IV Total 180 ml Laboratory Tests Test 09/05/17 22:45 White Blood Count 5.8 K/UL (4.8-10.8) Red Blood Count 3.81 M/UL (4.20-5.40) L Hemoglobin 11.8 G/DL (12.0-16.0) L Hematocrit 34.5 % (37.0-47.0) L Mean Corpuscular Volume 91 FL (80-99) Mean Corpuscular Hemoglobin 31.0 PG (27.0-31.0) Mean Corpuscular Hemoglobin Concent 34.3 G/DL (32.0-36.0) Red Cell Distribution Width 14.0 % (11.6-14.8) Platelet Count 251 K/UL (150-450) Mean Platelet Volume 5.9 FL (6.5-10.1) L Neutrophils (%) (Auto) 54.9 % (45.0-75.0) Lymphocytes (%) (Auto) 34.5 % (20.0-45.0) Monocytes (%) (Auto) 6.8 % (1.0-10.0) Eosinophils (%) (Auto) 2.3 % (0.0-3.0) Basophils (%) (Auto) 1.5 % (0.0-2.0) Sodium Level 141 MMOL/L (136-145) Potassium Level 3.9 MMOL/L (3.5-5.1) Chloride Level 106 MMOL/L (98-107) Carbon Dioxide Level 30 MMOL/L (21-32) Anion Gap 6 mmol/L (5-15) Blood Urea Nitrogen 13 mg/dL (7-18) Creatinine 0.7 MG/DL (0.55-1.30) Estimat Glomerular Filtration Rate > 60 mL/min (>60) Glucose Level 86 MG/DL (74-106) Calcium Level 9.0 MG/DL (8.5-10.1) Height (Feet): 5 Height (Inches): 3.00 Weight (Pounds): 140 Medications Current Medications Medications (Trade) Dose Ordered Sig/Danni Route PRN Reason Start Time Stop Time Status Last Admin Dose Admin Acetaminophen/ Hydrocodone Bitart ([place] 5/325) 1 tab Q4H PRN ORAL Moderate Pain (Pain Scale 4-6) 09/06/17 08:45 09/13/17 08:44 UNV Amlodipine Besylate (Norvasc) 10 mg DAILY ORAL 09/06/17 09:00 10/06/17 08:59 Baclofen (Lioresal) 20 mg THREE TIMES A DAY ORAL 09/06/17 09:00 10/06/17 08:59 Carisoprodol (Soma) 350 mg TID ORAL 09/06/17 09:00 10/06/17 08:59 Clonazepam (KlonoPIN) 1 mg Q6H ORAL 09/06/17 06:00 09/13/17 05:59 09/06/17 05:14 Dextrose/Sodium Chloride 1,000 ml @ 60 mls/hr [id number] IV 09/06/17 02:45 10/06/17 02:44 09/06/17 03:48 Diphenhydramine HCl (Benadryl) 25 mg Q6HR ORAL 09/06/17 06:00 10/06/17 05:59 Folic Acid (Folate) 2 mg DAILY ORAL 09/06/17 09:00 10/06/17 08:59 Gabapentin (Neurontin) 300 mg THREE TIMES A DAY ORAL 09/06/17 09:00 10/06/17 08:59 Hydralazine HCl (Apresoline) 25 mg Q4H PRN ORAL PRN 09/06/17 02:45 10/06/17 02:44 Lisinopril (Zestril) 10 mg DAILY ORAL 09/06/17 09:00 10/06/17 08:59 Metoprolol Succinate (Toprol XL) 50 mg DAILY ORAL 09/06/17 09:00 10/06/17 08:59 Rivaroxaban (Xarelto) 20 mg DAILY ORAL 09/06/17 09:00 10/06/17 08:59 Ropinirole HCl (Requip) 1 mg THREE TIMES A DAY ORAL 09/06/17 09:00 10/06/17 08:59 Tizanidine HCl (Zanaflex) 4 mg THREE TIMES A DAY ORAL 09/06/17 09:00 10/06/17 08:59 Assessment/Plan Assessment/Plan (1) Lumbar DDD (2) Lumbar spondylosis (4) Lumbar Herniated disc (5) Lumbar Radiculopathy (6) FBSS seen dictated SUNITHA CASTILLO Sep 06, 2017 08:59
[2017-09-06] MEDS ORDERED: LORazepam Inj 2mg/ml 1ml IV PRN (09:00)
[2017-09-06] MEDS ORDERED: Gadavist 7.5mMol/7.5ml vial IV PRN (09:15)
[2017-09-06] MEDS: DiphenhydrAMINE 50mg/ml Inj IVP PRN ×3 (09:23→21:57)
[2017-09-06] MEDS: Lisinopril 2.5mg tab ORAL SCH (09:30)
[2017-09-06] MEDS: Metoprolol Succinate XL 50mg tab ORAL SCH (09:31)
[2017-09-06] MEDS: Xarelto 10mg tab ORAL SCH (09:32)
--- NOTE | 2017-09-06 11:49 | Consultation ---
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 A few days ago she was walking and tripped over her long skirt and fell on her right side. Since then she has had a lot of pain and spasms in her right calf. ON EXAM: Mild problems with memory. Loss of vision in the right eye. Restricted EM in the right eye. Right VII central Right weakness with G 5-/5 in FE, G 4+/5 in IP and G 0/5 in ankle DF and TE. Subjective alteration of sensations over her entire right body. DTRs 1+ in BUE, 0 at right knee with 2+ at left knee and 0 at both ankles. Right > left paretic gait. Right UE dystonic tremor. IMPRESSION: Traumatic injury to right LE exacerbating her spasms. Right paresis and hemisensory loss unexplained. REC: Pain management as per pain management physician. Continue Soma for muscle spasms. CT of brain to evaluate left brain dysfunction. CT of LS spine to evaluate for acute pathology. Mobilize with PT. Chelly Angeles M.D., M.S.P.CHELLY LARSON Sep 06, 2017 11:49
[2017-09-06 12:46] LABS: EOSINOPHILS % (AUTO) 0.9 % (0.0-3.0); HEMATOCRIT 33.3 % (37.0-47.0); HEMOGLOBIN 11.3 G/DL (12.0-16.0); LYMPHOCYTES % (AUTO) 23.9 % (20.0-45.0); MEAN CORPUSCULAR VOLUME 91 FL (80-99); MONOCYTES % (AUTO) 8.2 % (1.0-10.0); PLATELET COUNT 240 K/UL (150-450); RED BLOOD COUNT 3.65 M/UL (4.20-5.40); RED CELL DISTRIBUTION WIDTH 14.1 % (11.6-14.8); WHITE BLOOD COUNT 5.8 K/UL (4.8-10.8)
[2017-09-06 12:56] LABS: ANION GAP 8 mmol/L (5-15); BLOOD UREA NITROGEN 10 mg/dL (7-18); CALCIUM 9.5 MG/DL (8.5-10.1); CARBON DIOXIDE 27 MMOL/L (21-32); CHLORIDE 105 MMOL/L (98-107); CREATININE 0.5 MG/DL (0.55-1.30); POTASSIUM 3.5 MMOL/L (3.5-5.1); SODIUM 140 MMOL/L (136-145)
[2017-09-06] MEDS: MS Contin 15mg tab ORAL SCH ×2 (13:33→20:37)
--- NOTE | 2017-09-06 14:30 | Consultation ---
DATE OF CONSULTATION: 09/06/2017 NEUROLOGY CONSULTATION CONSULTING PHYSICIAN: Ellis Angeles M.D. REQUESTING PHYSICIAN: Ernesto Magallon D.O. HISTORY: Ms. Naz Carmona is a 52-year-old, right-handed, black lady, who does have a past history of lumbosacral spine surgery with residual low back pain for which she has had a spinal stimulator placed. She also has had right lower extremity weakness, severe back and right lower extremity spasms for which she has been on various different antispasmodics over the years. 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 She was functioning relatively well until a few days ago when she was walking and tripped over her long skirt because of her right footdrop. She fell on her right side and since then has had a lot of pain and spasms involving her right calf which then spread into the entire right lower extremity and back. As a result of severe pain and discomfort, she was hospitalized. She was in quite some pain until this morning, but since then has felt a little better. She denies any increased weakness on one side or the other, numbness on one side or the other, problems with speech, problems with language, problems with vision, or problems with her memory. PAST MEDICAL HISTORY: Significant for low back problems for which she has had lumbosacral spine surgery with residual low back pain for which she has a spinal stimulator, right lower extremity weakness following the operation numerous years ago, and back and right lower extremity spasms. 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 FAMILY HISTORY: Nothing significant with no family history of any neurological problems. PERSONAL HISTORY: Home: She lives at home with her . Work: She is unemployed. Habits: None. PRESENT MEDICATIONS: Include morphine sulfate, Norvasc, folic acid, lisinopril, Toprol, Xarelto, Requip, Benadryl, Ativan, Dilaudid, Zanaflex 4 mg three times a day, gabapentin 300 mg three times a day, clonazepam 1 mg q. 6 hours, and hydralazine p.r.n. PHYSICAL EXAMINATION: GENERAL: She is a well-developed, well-nourished, pleasant, black lady, lying in bed, in no acute distress. VITAL SIGNS: Pulse 83 per minute, blood pressure 143/98 mmHg, respirations 20 per minute, and temperature 98 degrees Fahrenheit. HEAD: Normocephalic and atraumatic. EENT: Examination benign. NECK: No neck rigidity was observed. SPINE: Her lumbosacral spine revealed significant scarring from prior surgery. NEUROLOGICAL EXAMINATION: MENTAL STATUS EXAMINATION: She was awake and alert. She was oriented to person, place, and time with minimum hints. She was able to recall 3/3 words immediately and could remember them in 1 and 3 minutes on the second trial. She was able to remember presidents Trump through Venegas senior with hints. Her mathematical skills were minimally impaired. Her visuospatial function was relatively good. SPEECH: She had no dysarthria. LANGUAGE: She had no aphasia. CRANIAL NERVE EXAMINATION: II: The visual montero were intact in the left eye. She had loss of vision with no light perception in the right eye. III, IV & : The external ocular movements were full in the left eye, but restricted in the right eye. The right pupil was 3 mm and did not react to light. The left pupil was 3 mm and reacted sluggishly to light. V: She had normal facial sensations and the temporales, masseters, and pterygoids function normally. VII: She had a right VII central facial paresis. VIII: She was able to hear well bilaterally and had no nystagmus. IX: The palate moved symmetrically on phonation. X: She had no hoarseness of voice. XI: The sternocleidomastoids and trapezii functioned normally. XII: The tongue was in the midline without any fasciculations or atrophy. MOTOR SYSTEM: The tone was normal in all four extremities. Examination of muscle mass revealed no focal wasting. Examination of power revealed G 5/5 power except for G 5-/5 power in the right finger extensors, G 4+/5 power in the right iliopsoas, and grade 0/5 power in the right ankle dorsiflexors and toe extensors. SENSORY EXAMINATION: She had a subjective alteration to pinprick and light touch over entire right body. REFLEXES: 1+ and bilaterally symmetrical at the biceps, triceps, and brachioradialis, 0 on the right, and 2+ on the left at the knees, 0 at both ankles. The plantar responses were flexor bilaterally. COORDINATION: She performed well on [id number] testing. She was unable to perform [id number] testing. STANCE: She stood up with support. GAIT: She walked with support with a right greater than left paretic gait with a significant right footdrop. ABNORMAL MOVEMENTS: She had a dystonic tremor involving the right upper extremity. DIAGNOSTIC IMPRESSION: 1. Ms. Naz Carmona is a 52-year-old, right-handed, black lady, who does have a past history of lumbosacral spine disease for which she has had extensive surgery with a failed back associated with chronic low back pain and spasms involving the right lower extremity for which she has had a spinal stimulator placed. 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 A few days ago, she fell down and hurt her right side. Since then, she has had significant low back pain and spasms involving the right calf that spread up to involve her entire right lower extremity and back. She was hospitalized for that. 2. On neurological examination, at this time, she does demonstrate mild problems with memory, loss of vision in the right eye, and restricted eye movements in the right eye, a right VII central facial paresis, right-sided weakness with G 5/5 weakness in the finger extensors, G 4+/5 power in the iliopsoas, and G 0/5 power in the ankle dorsiflexors and toe extensors, a subjective alteration of sensation over entire right body, diminished deep tendon reflexes globally with loss of the right knee jerk and a right greater than left paretic gait. In addition, she has a right upper extremity dystonic tremor. 3. The most likely etiology for the patient's right lower extremity pain and spasms would be local trauma involving that area. The right hemiparesis and hemisensory deficit are unexplained. RECOMMENDATIONS: 1. Agree with management thus far. 2. Continue pain management as per Pain Management physician. 3. Continue Soma for muscle spasms. 4. A CT scan of the brain should be performed to evaluate the patient for her right paresis. 5. A CT scan of the lumbosacral spine should be performed to evaluate for acute pathology in that area. 6. The patient should be mobilized with the help of physical and occupational therapy. 7. Depending on how the patient fares over the next day or so, further recommendations will be given. Thank you for entrusting me with the care of Ms. Carmona. I shall follow her with you. Ellis Angeles M.D., M.S.P.H. DR: MARCIN JOB#: [id number] MTDD
--- NOTE | 2017-09-06 16:51 | Diagnostic Imaging Report ---
Reason For Exam: WEAK Technique: Continuous helical CT scanning of the head was performed utilizing automated exposure control without intravenous contrast material. Axial and coronal reconstructions were obtained. Comparison: None CT dose: Total DLP 1312.71 mGycm; CTDI vol 70.38 mGy Findings: There is mild motion degradation of images. Within these limitations: There is no acute intracranial hemorrhage, mass effect or cortical edema. The ventricles, cisterns and sulci are normal for age. Very mild periventricular hypoattenuation is seen, a nonspecific finding most likely related to sequela of chronic microvascular ischemic changes. Mild atherosclerotic calcifications noted. Visualized mastoid air cells and paranasal sinuses are unremarkable. 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 No focal lesions of the bony calvarium or soft tissues of the scalp are seen. IMPRESSION: Mild image degradation due to patient motion. Within these limitations: No evidence of acute intracranial hemorrhage, mass effect or cortical edema. MRI may be obtained for more sensitive evaluation as clinically indicated. Additional findings as above. The CT scanner at [facility] is accredited by the [employer] and the scans are performed using protocols designed to limit radiation exposure to as low as reasonably achievable to attain images of sufficient resolution adequate for diagnostic evaluation.
--- NOTE | 2017-09-06 17:15 | History and Physical Report ---
DATE OF ADMISSION: 09/05/2017 CONSULTANTS: 1. Armani Singh M.D. 2. Ellis Angeles M.D. 3. Amanda Crews M.D. CHIEF COMPLAINT: Intractable pain, anxiety, leg weakness. BRIEF HISTORY: A 52-year-old female with history of arachnoiditis, cauda equina, two days ago fell and back pain flared up so bad it went up to 8/10. The patient came to [facility], diagnosed with the above, and admitted to medical floor for further treatment. Currently, slightly anxious in bed, back pain 8/10. No complaint. REVIEW OF SYSTEMS: No chest pain. No shortness of breath. No nausea, vomiting, or diarrhea. PAST MEDICAL HISTORY: Include anxiety, arachnoiditis, cauda equina, and intractable chronic pain. PAST SURGICAL HISTORY: Right eye, back surgery, and hysterectomy. MEDICATIONS: Include MS Contin, , Norvasc, folate, Zestril, Toprol, Xarelto, Requip, Benadryl, Ativan, Dilaudid, Zanaflex, Neurontin, Klonopin, and Apresoline. ALLERGIES: Methadone, morphine, and pregabalin. SOCIAL HISTORY: Positive smoking. Positive alcohol. No intravenous drug abuse. FAMILY HISTORY: Noncontributory. PHYSICAL EXAMINATION: GENERAL: Calm, slightly anxious in bed, oriented x3, in slight distress secondary to 10/10 pain. VITAL SIGNS: Temperature 97, pulse 84, respirations 20, and blood pressure 163/93. CARDIOVASCULAR: No murmurs. LUNGS: Distant and clear. ABDOMEN: Bowel sounds positive. Nontender. Nondistended. EXTREMITIES: No cyanosis, clubbing, or edema. NEUROLOGIC: The patient moves all extremities, but slightly weak. LABORATORY DATA: Hemoglobin 11.3, otherwise CBC is normal. Creatinine 0.5 and glucose 114, otherwise BMP is normal. ASSESSMENT: Intractable pain of leg and back, anxiety, hypertension, anemia, arachnoiditis history, and history of cauda equina. PLAN: 1. OT, PT, dietary evaluation. 2. CBC and BMP in the morning. 3. Resume home medications. 4. Pain control. 5. Blood pressure control. 6. We will continue to follow this patient. Ernesto Magallon D.O. DR: GARRETT JOB#: [id number] CC:
--- NOTE | 2017-09-06 18:13 | Diagnostic Imaging Report ---
Indication: Pain status post injury Technique: CT lumbar spine was performed utilizing automated exposure control without intravenous contrast material. Axial, sagittal and coronal images were generated. CT dose: Total DLP 436.43 mGycm; CTDI vol 14.03 mGy Comparison: Contrast-enhanced CT of the lumbar spine 08/10/2017 Findings: There are 5 nonrib-bearing lumbar-type vertebral bodies, assuming 12 paired ribs. For the purposes of counting on this exam only of the first nonrib-bearing lumbar vertebral body will be labeled as L1. The patient again noted to be status post instrumented fusion at L4-L5 by means of left-sided pedicular screws and a single brett. There is also evidence of disc spacer and ankylosis of the disc. There is ankylosis of the lateral L4-L5 facets. Also unchanged. There is no evidence of hardware-related complication. There is unchanged lucencies in the right L4 and L5 pedicles related to prior hardware. Bone graft material is also again noted and unchanged. There is an unchanged ossification of the periphery of the thecal sac extending from the level of L4 to the mid sacral spine. There is no evidence of acute fracture. Spinal stimulators are in place with out significant interval change in positioning/appearance compared to the prior exam. Again, 2 of the leads course dorsally and one courses ventrally. Additional findings including likely postsurgical soft tissue changes are overall without significant interval change from exam 08/10/2017. IMPRESSION: Extensive postsurgical change of the lumbar spine overall similar in appearance to prior exam of 08/10/2017. No evidence of acute fracture. Unchanged hyperdense material in the spinal canal posterior to L3-L4 disc space likely postsurgical scarring. Unchanged dystrophic calcification of the lower lumbar/upper sacral thecal sac. Spinal cord stimulator is in place. This corresponds with the preliminary report. Please note that MRI would provide a more sensitive evaluation for the cord and discs and can be obtained if implanted hardware is MRI compatible/conditional. Alternatively consider myelogram as clinically indicated. The CT scanner at [facility] is accredited by the [employer] and the scans are performed using protocols designed to limit radiation exposure to as low as reasonably achievable to attain images of sufficient resolution adequate for diagnostic evaluation.
--- NOTE | 2017-09-06 22:00 | Consultation ---
DATE OF CONSULTATION: 09/06/2017 PAIN MANAGEMENT CONSULTATION CONSULTING PHYSICIAN: Armani Singh M.D. PHYSICIAN MANAGER CARE: Praful Camacho REFERRING PHYSICIAN: Ernesto Magallon D.O. CHIEF COMPLAINT: Low back pain. HISTORY OF PRESENT ILLNESS: This is a a 52-year-old female who is being seen on the Med/Surg floor of [facility] for comprehensive pain management consultation. The patient is a known patient from prior admission, came into hospital, was admitted under the care of Dr. Magallon complaining of intractable pain, reports that she has been having low back pain since 2009 and had lumbar surgeries in the past with spinal cord stimulator placement due to chronic pain, rating a 10/10, describing the pain as a sharp shooting pain, radiating down the left lower extremity, nothing helping to relieve the pain but pain medication and reports that she had a fall on Wednesday increasing the pain. We were consulted so that the patient would have adequate pain control while here in the hospital. PAST MEDICAL HISTORY: Blind and hypertension. PAST SURGICAL HISTORY: Lumbar surgeries, spinal cord stimulator placement, right eye prosthetic. ALLERGIES: Methadone, morphine, Lyrica, and iron. SOCIAL HISTORY: She is a smoker. REVIEW OF SYSTEMS: Denies rash, fever, chills, sweating, dizziness, drowsiness, blurred vision, sore throat, or change in her weight. No shortness of breath or chest pain. No nausea, vomiting, diarrhea, or blood in stool or urine. No bowel or bladder incontinence. No dysuria. She is complaining of low back pain. PHYSICAL EXAMINATION: GENERAL: Alert, awake, and oriented x3. VITAL SIGNS: Blood pressure 143/98, heart rate 85, oxygen saturation 98%, respirations 20, temperature is 98 degrees Fahrenheit. HEENT: PERRLA on the left. On the right, prosthetic eye noted. NECK: Range of motion is full in all directions. LUNGS: Clear. HEART: Regular. ABDOMEN: Benign. BACK: Range of motion is decreased in flexion and extension with surgical scar noted. Tenderness to palpation. EXTREMITIES: Upper and lower extremity range of motion is decreased due to the patient's condition. No cyanosis. No clubbing. Sensory is reduced. Reflexes are not obtainable. No adenopathy. ASSESSMENT AND PLAN: This is a 52-year-old female with lumbar degenerative disease, lumbar spinal stenosis, lumbar radiculopathy, failed back surgery syndrome. The patient will be started on morphine extended release 15 mg tablet every eight hours [id number] hold for sedation, Dilaudid 2 mg IV every four hours as needed for severe pain, Neurontin 300 mg three times a day, Zanaflex 4 mg tablet three times a day. We will order an MRI of lumbar spine with and without contrast due to the patient reporting that she has had a spinal cord stimulator which is compatible with MRI. However, it is not compatible We will order CT scan of lumbar spine without contrast due to the patient's recent fall. The patient was discussed with Dr. Singh. Dr. Singh concurred. We will follow the patient. Thank you very much for the courtesy of this consultation. Armani Singh M.D. ÁNGEL Camacho DR: Harjinder JOB#: [id number] CC: SHELLEY
[2017-09-07] VITALS: BP 139/77
[2017-09-07 04:00] VITALS: BP 127/82
[2017-09-07] MEDS: DiphenhydrAMINE 50mg/ml Inj IVP PRN ×3 (05:48→21:12)
[2017-09-07] MEDS: MS Contin 15mg tab ORAL SCH ×3 (05:48→21:06)
[2017-09-07 07:08] LABS: ANION GAP 8 mmol/L (5-15); BLOOD UREA NITROGEN 18 mg/dL (7-18); CALCIUM 8.9 MG/DL (8.5-10.1); CARBON DIOXIDE 28 MMOL/L (21-32); CHLORIDE 105 MMOL/L (98-107); CREATININE 0.7 MG/DL (0.55-1.30); POTASSIUM 3.5 MMOL/L (3.5-5.1); SODIUM 141 MMOL/L (136-145)
[2017-09-07 07:14] LABS: BASOPHILS % (AUTO) 1.8 % (0.0-2.0); EOSINOPHILS % (AUTO) 2.2 % (0.0-3.0); HEMATOCRIT 32.9 % (37.0-47.0); HEMOGLOBIN 10.8 G/DL (12.0-16.0); LYMPHOCYTES % (AUTO) 35.7 % (20.0-45.0); MEAN CORPUSCULAR VOLUME 92 FL (80-99); MONOCYTES % (AUTO) 10.4 % (1.0-10.0); PLATELET COUNT 234 K/UL (150-450); RED BLOOD COUNT 3.56 M/UL (4.20-5.40); RED CELL DISTRIBUTION WIDTH 14.1 % (11.6-14.8); WHITE BLOOD COUNT 5.3 K/UL (4.8-10.8)
[2017-09-07 08:00] VITALS: BP 159/69
--- NOTE | 2017-09-07 08:48 | General Progress Note ---
Assessment/Plan Assessment/Plan (1) Lumbar DDD (2) Lumbar spondylosis (4) Lumbar Herniated disc (5) Lumbar Radiculopathy (6) FBSS Patient to be continued on Morphine ER and Dilaudid. D/w Dr. Singh and he concurred. Subjective Date patient seen: September 07, 2017 Time patient seen: 07:45 - am Allergies: Coded Allergies: IRON (Verified Allergy, Unknown, Rash, 08/09/17) had nausea, vomiting and rashes METHADONE (Verified Allergy, Unknown, 06/04/17) MORPHINE (Verified Allergy, Unknown, 09/06/17) PREGABALIN (Verified Allergy, Unknown, 06/04/17) Subjective REVIEW OF SYSTEMS: Denies rash, fever, chills, sweating, dizziness, drowsiness, blurred vision, sore throat, or change in her weight. No shortness of breath or chest pain. No nausea, vomiting, diarrhea, or blood in stool or urine. No bowel or bladder incontinence. No dysuria. She is complaining of low back pain. SUBJECTIVE: Patient is in bed comfortable and has no new complaints. CT was reviewed. Objective Last 24 Hour Vital Signs Date Time Temp Pulse Resp B/P (MAP) Pulse Ox O2 Delivery O2 Flow Rate FiO2 09/07/17 07:44 98.0 09/07/17 04:00 98.0 55 19 127/82 100 98.0 09/07/17 00:00 98.3 71 19 139/77 100 98.3 09/06/17 21:00 98.7 68 18 133/82 98 98.7 09/06/17 20:00 98.7 68 18 133/82 98 98.7 09/06/17 18:30 97.7 09/06/17 18:06 97.7 09/06/17 17:36 97.7 09/06/17 17:36 97.7 09/06/17 16:00 97.7 74 20 146/93 99 97.7 09/06/17 14:32 97.2 09/06/17 13:33 97.2 09/06/17 13:32 97.2 09/06/17 12:44 97.2 09/06/17 12:00 97.2 84 20 163/93 100 97.2 09/06/17 09:32 98.0 09/06/17 09:32 83 143/98 09/06/17 09:31 83 143/98 09/06/17 09:30 143/98 09/06/17 09:23 98.0 09/06/17 09:00 98.0 83 20 143/93 98 98.0 Intake and Output 09/06/17 09/07/17 19:00 07:00 Intake Total 1620 ml 480 ml Output Total 400 ml Balance 1220 ml 480 ml Intake Oral 900 ml IV Total 720 ml 480 ml Output Urine Total 400 ml # Voids 3 2 # Bowel Movements 1 Laboratory Tests 09/07/17 06:00: White Blood Count 5.3, Red Blood Count 3.56L, Hemoglobin 10.8L, Hematocrit 32.9L , Mean Corpuscular Volume 92, Mean Corpuscular Hemoglobin 30.3, Mean Corpuscular Hemoglobin Concent 32.8, Red Cell Distribution Width 14.1, Platelet Count 234, Mean Platelet Volume 5.4L, Neutrophils (%) (Auto) 50.0, Lymphocytes ( %) (Auto) 35.7, Monocytes (%) (Auto) 10.4H, Eosinophils (%) (Auto) 2.2, Basophils (%) (Auto) 1.8, Sodium Level 141, Potassium Level 3.5, Chloride Level 105, Carbon Dioxide Level 28, Anion Gap 8, Blood Urea Nitrogen 18, Creatinine 0.7, Estimat Glomerular Filtration Rate > 60, Glucose Level 132H, Calcium Level 8.9 Height (Feet): 5 Height (Inches): 3.00 Weight (Pounds): 140 Objective GENERAL: Alert, awake, and oriented x3. HEENT: PERRLA on the left. On the right, prosthetic eye noted. NECK: Range of motion is full in all directions. LUNGS: Clear. HEART: Regular. ABDOMEN: Benign. BACK: Range of motion is decreased in flexion and extension with surgical scar noted. Tenderness to palpation. EXTREMITIES: Upper and lower extremity range of motion is decreased due to the patient's condition. No cyanosis. No clubbing. Sensory is reduced. Reflexes are not obtainable. No adenopathy. CT Lumbar spine There are 5 nonrib-bearing lumbar-type vertebral bodies, assuming 12 paired ribs. For the purposes of counting on this exam only of the first nonrib-bearing lumbar vertebral body will be labeled as L1. The patient again noted to be status post instrumented fusion at L4-L5 by means of left-sided pedicular screws and a single brett. There is also evidence of disc spacer and ankylosis of the disc. There is ankylosis of the lateral L4-L5 facets. Also unchanged. There is no evidence of hardware-related complication. There is unchanged lucencies in the right L4 and L5 pedicles related to prior hardware. Bone graft material is also again noted and unchanged. There is an unchanged ossification of the periphery of the thecal sac extending from the level of L4 to the mid sacral spine. There is no evidence of acute fracture. Spinal stimulators are in place with out significant interval change in positioning/appearance compared to the prior exam. Again, 2 of the leads course dorsally and one courses ventrally. SUNITHA CASTILLO September 07, 2017 08:48
[2017-09-07] MEDS: Xarelto 10mg tab ORAL SCH (09:32)
[2017-09-07] MEDS: Metoprolol Succinate XL 50mg tab ORAL SCH (09:32)
[2017-09-07] MEDS: Lisinopril 2.5mg tab ORAL SCH (09:34)
[2017-09-07 11:41] VITALS: BP 121/65
[2017-09-07] MEDS: D5 1/2NS 1,000 ML IV SCH (12:34)
--- NOTE | 2017-09-07 14:23 | General Progress Note ---
Assessment/Plan Problem List: (1) Anemia ICD Codes: D64.9 - Anemia, unspecified SNOMED: 160754053 (2) HTN (hypertension) ICD Codes: I10 - Essential (primary) hypertension SNOMED: 63762134 (3) Muscle spasm ICD Codes: M62.838 - Other muscle spasm SNOMED: 50189203, 07222003 (4) pain (5) Chronic pain syndrome ICD Codes: G89.4 - Chronic pain syndrome SNOMED: 584304196 (6) Back pain ICD Codes: M54.9 - Dorsalgia, unspecified SNOMED: 298258981 Qualifiers: Qualified Codes: M54.5 - Low back pain Status: unchanged Assessment/Plan ot pt diet pain control cbc bmp am dc plan w hh Subjective Allergies: Coded Allergies: IRON (Verified Allergy, Unknown, Rash, 08/09/17) had nausea, vomiting and rashes METHADONE (Verified Allergy, Unknown, 06/04/17) MORPHINE (Verified Allergy, Unknown, 09/06/17) PREGABALIN (Verified Allergy, Unknown, 06/04/17) All Systems: reviewed and negative except above Subjective c/o some stomach and back pain Objective Last 24 Hour Vital Signs Date Time Temp Pulse Resp B/P (MAP) Pulse Ox O2 Delivery O2 Flow Rate FiO2 09/07/17 12:00 Room Air 09/07/17 11:41 98.2 66 16 121/65 97 98.2 09/07/17 09:34 150/74 09/07/17 09:32 69 150/74 09/07/17 09:31 69 150/74 09/07/17 08:00 Room Air 09/07/17 08:00 97.2 70 16 159/69 99 97.2 09/07/17 07:44 98.0 09/07/17 04:00 98.0 55 19 127/82 100 98.0 09/07/17 00:00 98.3 71 19 139/77 100 98.3 09/06/17 21:00 98.7 68 18 133/82 98 98.7 09/06/17 20:00 98.7 68 18 133/82 98 98.7 09/06/17 18:30 97.7 09/06/17 18:06 97.7 09/06/17 17:36 97.7 4/30/18 17:36 97.7 09/06/17 16:00 97.7 74 20 146/93 99 97.7 09/06/17 14:32 97.2 Intake and Output 09/06/17 09/07/17 19:00 07:00 Intake Total 1620 ml 480 ml Output Total 400 ml Balance 1220 ml 480 ml Intake Oral 900 ml IV Total 720 ml 480 ml Output Urine Total 400 ml # Voids 3 2 # Bowel Movements 1 Laboratory Tests 09/07/17 06:00: White Blood Count 5.3, Red Blood Count 3.56L, Hemoglobin 10.8L, Hematocrit 32.9L , Mean Corpuscular Volume 92, Mean Corpuscular Hemoglobin 30.3, Mean Corpuscular Hemoglobin Concent 32.8, Red Cell Distribution Width 14.1, Platelet Count 234, Mean Platelet Volume 5.4L, Neutrophils (%) (Auto) 50.0, Lymphocytes ( %) (Auto) 35.7, Monocytes (%) (Auto) 10.4H, Eosinophils (%) (Auto) 2.2, Basophils (%) (Auto) 1.8, Sodium Level 141, Potassium Level 3.5, Chloride Level 105, Carbon Dioxide Level 28, Anion Gap 8, Blood Urea Nitrogen 18, Creatinine 0.7, Estimat Glomerular Filtration Rate > 60, Glucose Level 132H, Calcium Level 8.9 Height (Feet): 5 Height (Inches): 3.00 Weight (Pounds): 140 General Appearance: lethargic EENT: normal ENT inspection Neck: normal alignment Cardiovascular: normal peripheral pulses, normal rate, regular rhythm Respiratory/Chest: chest wall non-tender, lungs clear, normal breath sounds Abdomen: normal bowel sounds, non tender, soft Extremities: normal inspection Edema: no edema noted Arm (L), no edema noted Arm (R), no edema noted Leg (L), no edema noted Leg (R), no edema noted Pedal (L), no edema noted Pedal (R), no edema noted Generalized Neurologic: responsive, motor weakness Skin: normal pigmentation, warm/dry JUAN FRANCISCO OCAMPO September 07, 2017 14:23
--- NOTE | 2017-09-07 14:40 | Cardiology Progress Note ---
Assessment/Plan Assessment/Plan [id number] Objective Last 24 Hour Vital Signs Date Time Temp Pulse Resp B/P (MAP) Pulse Ox O2 Delivery O2 Flow Rate FiO2 09/07/17 12:00 Room Air 09/07/17 11:41 98.2 66 16 121/65 97 98.2 09/07/17 09:34 150/74 09/07/17 09:32 69 150/74 09/07/17 09:31 69 150/74 09/07/17 08:00 Room Air 09/07/17 08:00 97.2 70 16 159/69 99 97.2 09/07/17 07:44 98.0 09/07/17 04:00 98.0 55 19 127/82 100 98.0 09/07/17 00:00 98.3 71 19 139/77 100 98.3 09/06/17 21:00 98.7 68 18 133/82 98 98.7 09/06/17 20:00 98.7 68 18 133/82 98 98.7 09/06/17 18:30 97.7 09/06/17 18:06 97.7 09/06/17 17:36 97.7 09/06/17 17:36 97.7 09/06/17 16:00 97.7 74 20 146/93 99 97.7 Intake and Output 09/06/17 09/07/17 19:00 07:00 Intake Total 1620 ml 480 ml Output Total 400 ml Balance 1220 ml 480 ml Intake Oral 900 ml IV Total 720 ml 480 ml Output Urine Total 400 ml # Voids 3 2 # Bowel Movements 1 Laboratory Tests Test 09/07/17 06:00 White Blood Count 5.3 K/UL (4.8-10.8) Red Blood Count 3.56 M/UL (4.20-5.40) L Hemoglobin 10.8 G/DL (12.0-16.0) L Hematocrit 32.9 % (37.0-47.0) L Mean Corpuscular Volume 92 FL (80-99) Mean Corpuscular Hemoglobin 30.3 PG (27.0-31.0) Mean Corpuscular Hemoglobin Concent 32.8 G/DL (32.0-36.0) Red Cell Distribution Width 14.1 % (11.6-14.8) Platelet Count 234 K/UL (150-450) Mean Platelet Volume 5.4 FL (6.5-10.1) L Neutrophils (%) (Auto) 50.0 % (45.0-75.0) Lymphocytes (%) (Auto) 35.7 % (20.0-45.0) Monocytes (%) (Auto) 10.4 % (1.0-10.0) H Eosinophils (%) (Auto) 2.2 % (0.0-3.0) Basophils (%) (Auto) 1.8 % (0.0-2.0) Sodium Level 141 MMOL/L (136-145) Potassium Level 3.5 MMOL/L (3.5-5.1) Chloride Level 105 MMOL/L (98-107) Carbon Dioxide Level 28 MMOL/L (21-32) Anion Gap 8 mmol/L (5-15) Blood Urea Nitrogen 18 mg/dL (7-18) Creatinine 0.7 MG/DL (0.55-1.30) Estimat Glomerular Filtration Rate > 60 mL/min (>60) Glucose Level 132 MG/DL (74-106) H Calcium Level 8.9 MG/DL (8.5-10.1) TICO MACARIO September 07, 2017 14:40
[2017-09-07 16:00] VITALS: BP 138/86
--- NOTE | 2017-09-07 17:53 | Neurology Progress Note ---
Interim History Interim History Interim History Ms. Carmona feels better. The spasms are better. The pain is about the same. She did walk a little today. She denies any new neurologic symptoms. Review of Systems Neuro Review of Systems Benign. Objective Physical Exam Last Vital Signs Date Time Temp Pulse Resp B/P (MAP) Pulse Ox O2 Delivery O2 Flow Rate FiO2 09/07/17 17:02 77 81 79 09/07/17 16:00 97.3 20 138/86 99 Room Air 97.3 Laboratory Tests Test 09/07/17 06:00 White Blood Count 5.3 K/UL (4.8-10.8) Red Blood Count 3.56 M/UL (4.20-5.40) L Hemoglobin 10.8 G/DL (12.0-16.0) L Hematocrit 32.9 % (37.0-47.0) L Mean Corpuscular Volume 92 FL (80-99) Mean Corpuscular Hemoglobin 30.3 PG (27.0-31.0) Mean Corpuscular Hemoglobin Concent 32.8 G/DL (32.0-36.0) Red Cell Distribution Width 14.1 % (11.6-14.8) Platelet Count 234 K/UL (150-450) Mean Platelet Volume 5.4 FL (6.5-10.1) L Neutrophils (%) (Auto) 50.0 % (45.0-75.0) Lymphocytes (%) (Auto) 35.7 % (20.0-45.0) Monocytes (%) (Auto) 10.4 % (1.0-10.0) H Eosinophils (%) (Auto) 2.2 % (0.0-3.0) Basophils (%) (Auto) 1.8 % (0.0-2.0) Sodium Level 141 MMOL/L (136-145) Potassium Level 3.5 MMOL/L (3.5-5.1) Chloride Level 105 MMOL/L (98-107) Carbon Dioxide Level 28 MMOL/L (21-32) Anion Gap 8 mmol/L (5-15) Blood Urea Nitrogen 18 mg/dL (7-18) Creatinine 0.7 MG/DL (0.55-1.30) Estimat Glomerular Filtration Rate > 60 mL/min (>60) Glucose Level 132 MG/DL (74-106) H Calcium Level 8.9 MG/DL (8.5-10.1) Neurologic Exam Objective PHYSICAL EXAMINATION: GENERAL: She is a well-developed, well-nourished, pleasant, black lady, lying in bed, in no acute distress. HEAD: Normocephalic and atraumatic. EENT: Examination benign. NECK: No neck rigidity was observed. SPINE: Her lumbosacral spine revealed significant scarring from prior surgery. NEUROLOGICAL EXAMINATION: MENTAL STATUS EXAMINATION: She was awake and alert. Her cerebration was slow. She was oriented to person, place, and time with minimum hints. She was able to recall 3/3 words immediately and could remember them in 1 and 3 minutes on the second trial. She was able to remember presidents Trump through Venegas senior with hints. Her mathematical skills were minimally impaired. Her visuospatial function was relatively good. SPEECH: She had no dysarthria. LANGUAGE: She had no aphasia. CRANIAL NERVE EXAMINATION: II: The visual montero were intact in the left eye. She had loss of vision with no light perception in the right eye. III, IV & : The external ocular movements were full in the left eye, but restricted in the right eye. The right pupil was 3 mm and did not react to light. The left pupil was 3 mm and reacted sluggishly to light. V: She had normal facial sensations and the temporales, masseters, and pterygoids function normally. VII: She had a right VII central facial paresis. VIII: She was able to hear well bilaterally and had no nystagmus. IX: The palate moved symmetrically on phonation. X: She had no hoarseness of voice. XI: The sternocleidomastoids and trapezii functioned normally. XII: The tongue was in the midline without any fasciculations or atrophy. MOTOR SYSTEM: The tone was normal in all four extremities. Examination of muscle mass revealed no focal wasting. Examination of power revealed G 5/5 power except for G 5-/5 power in the right finger extensors, G 4+/5 power in the right iliopsoas, and G 0/5 power in the right ankle dorsiflexors and toe extensors. SENSORY EXAMINATION: She had a subjective alteration to pinprick and light touch over entire right body. REFLEXES: 1+ and bilaterally symmetrical at the biceps, triceps, and brachioradialis, 0 on the right, and 2+ on the left at the knees, 0 at both ankles. The plantar responses were flexor bilaterally. COORDINATION: She performed well on [id number] testing. She was unable to perform [id number] testing. STANCE: She stood up with support. GAIT: She walked with support with a right greater than left paretic gait with a significant right footdrop. ABNORMAL MOVEMENTS: She had a dystonic tremor involving the right upper extremity. Impression/Recommendations Diagnostic Impression 1. Ms. Naz Carmona is a 52-year-old, right-handed, black lady, who does have a past history of lumbosacral spine disease for which she has had extensive surgery with a failed back associated with chronic low back pain and spasms involving the right lower extremity for which she has had a spinal stimulator placed. 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 A few days ago, she fell down and hurt her right side. Since then, she has had significant low back pain and spasms involving the right calf that spread up to involve her entire right lower extremity and back. She was hospitalized for that. 2. She feels better. The spasms are better. The pain is about the same. She did walk a little today. She denies any new neurologic symptoms. 3. On neurological examination, at this time, she does demonstrate slowing of cerebration, mild problems with memory, loss of vision in the right eye, and restricted eye movements in the right eye, a right VII central facial paresis, right-sided weakness with G 5/5 weakness in the finger extensors, G 4+/5 power in the iliopsoas, and G 0/5 power in the ankle dorsiflexors and toe extensors, a subjective alteration of sensation over entire right body, diminished deep tendon reflexes globally with loss of the right knee jerk and a right greater than left paretic gait. In addition, she has a right upper extremity dystonic tremor. 4. The CT of the brain and LS spine are benign for acute pathology. 5. The most likely etiology for the patient's right lower extremity pain and spasms would be local trauma involving that area. The right hemiparesis and hemisensory deficit are unexplained. Recommendations 1. Continue present management. 2. Continue pain management as per Pain Management physician. 3. Continue Soma for muscle spasms. 4. The patient should be mobilized with the help of physical and occupational therapy. Chelly Antoine M.D., M.S.P.H. CHELLY ANTOINE September 07, 2017 17:53
[2017-09-07 20:00] VITALS: BP 122/73
[2017-09-07] MEDS: Dyna-Hex 2% Top Sol 2oz TOPIC SCH (21:05)
[2017-09-08] VITALS: BP 145/80
[2017-09-08 04:00] VITALS: BP 154/82
[2017-09-08] MEDS: D5 1/2NS 1,000 ML IV SCH ×2 (04:26→18:48)
[2017-09-08] MEDS: MS Contin 15mg tab ORAL SCH ×3 (05:53→20:22)
[2017-09-08] MEDS: DiphenhydrAMINE 50mg/ml Inj IVP PRN ×3 (06:09→20:21)
[2017-09-08 08:00] VITALS: BP 139/79
--- NOTE | 2017-09-08 08:41 | General Progress Note ---
Assessment/Plan Assessment/Plan (1) Lumbar DDD (2) Lumbar spondylosis (4) Lumbar Herniated disc (5) Lumbar Radiculopathy (6) FBSS (7) Abdominal pain Patient to be continued on Morphine ER and Dilaudid. We will order abdominal ultrasound and recommend GI specialist as per office aide. D/w Dr. Singh and he concurred. Subjective Date patient seen: September 08, 2017 Time patient seen: 07:15 - am Allergies: Coded Allergies: IRON (Verified Allergy, Unknown, Rash, 08/09/17) had nausea, vomiting and rashes METHADONE (Verified Allergy, Unknown, 06/04/17) MORPHINE (Verified Allergy, Unknown, 09/06/17) PREGABALIN (Verified Allergy, Unknown, 06/04/17) Subjective REVIEW OF SYSTEMS: Denies rash, fever, chills, sweating, dizziness, drowsiness, blurred vision, sore throat, or change in her weight. No shortness of breath or chest pain. No nausea, vomiting, diarrhea, or blood in stool or urine. No bowel or bladder incontinence. No dysuria. She is complaining of low back pain and abdominal pain SUBJECTIVE: Patient c/o abdominal pain. Back pain is controlled on the Dilaudid. She was advised to use the Morphine. Objective Last 24 Hour Vital Signs Date Time Temp Pulse Resp B/P (MAP) Pulse Ox O2 Delivery O2 Flow Rate FiO2 09/08/17 04:00 98.1 55 16 154/82 98 98.1 09/08/17 04:00 55 56 55 09/08/17 00:00 98.2 61 20 145/80 100 98.2 09/07/17 20:00 98.4 63 19 122/73 99 98.4 09/07/17 17:02 77 81 79 09/07/17 16:00 97.3 77 20 138/86 99 Room Air 97.3 09/07/17 12:00 Room Air 09/07/17 11:41 98.2 66 16 121/65 97 98.2 09/07/17 09:34 150/74 09/07/17 09:32 69 150/74 09/07/17 09:31 69 150/74 Intake and Output 09/07/17 09/08/17 19:00 07:00 Intake Total 840 ml 860 ml Balance 840 ml 860 ml Intake Oral 240 ml 260 ml IV Total 600 ml 600 ml # Voids 4 2 Height (Feet): 5 Height (Inches): 3.00 Weight (Pounds): 140 Objective GENERAL: Alert, awake, and oriented x3. HEENT: PERRLA on the left. On the right, prosthetic eye noted. NECK: Range of motion is full in all directions. LUNGS: Clear. HEART: Regular. ABDOMEN: Tenderness to palpation. BACK: Range of motion is decreased in flexion and extension with surgical scar noted. Tenderness to palpation. EXTREMITIES: Upper and lower extremity range of motion is decreased due to the patient's condition. No cyanosis. No clubbing. Sensory is reduced. Reflexes are not obtainable. No adenopathy. SUNITHA CASTILLO September 08, 2017 08:41
[2017-09-08 09:23] LABS: BASOPHILS % (AUTO) 1.5 % (0.0-2.0); EOSINOPHILS % (AUTO) 2.1 % (0.0-3.0); HEMATOCRIT 37.5 % (37.0-47.0); HEMOGLOBIN 12.5 G/DL (12.0-16.0); LYMPHOCYTES % (AUTO) 29.7 % (20.0-45.0); MEAN CORPUSCULAR VOLUME 92 FL (80-99); NEUTROPHILS % (AUTO) 60.8 % (45.0-75.0); PLATELET COUNT 205 K/UL (150-450); RED BLOOD COUNT 4.06 M/UL (4.20-5.40); RED CELL DISTRIBUTION WIDTH 14.5 % (11.6-14.8); WHITE BLOOD COUNT 5.2 K/UL (4.8-10.8)
[2017-09-08] MEDS: Metoprolol Succinate XL 50mg tab ORAL SCH (09:35)
[2017-09-08] MEDS: Xarelto 10mg tab ORAL SCH (09:40)
[2017-09-08 09:44] LABS: ALANINE AMINOTRANSFERASE 20 U/L (12-78); ALBUMIN 3.7 G/DL (3.4-5.0); ALBUMIN/GLOBULIN RATIO 0.8 (1.0-2.7); ALKALINE PHOSPHATASE 155 U/L (46-116); ANION GAP 8 mmol/L (5-15); ASPARTATE AMINO TRANSFERASE 13 U/L (15-37); BILIRUBIN,TOTAL 0.3 MG/DL (0.2-1.0); BLOOD UREA NITROGEN 21 mg/dL (7-18); CALCIUM 9.4 MG/DL (8.5-10.1); CARBON DIOXIDE 26 MMOL/L (21-32); CHLORIDE 104 MMOL/L (98-107); CREATININE 0.7 MG/DL (0.55-1.30); POTASSIUM 4.2 MMOL/L (3.5-5.1); SODIUM 138 MMOL/L (136-145)
[2017-09-08] MEDS: Lisinopril 2.5mg tab ORAL SCH (09:45)
[2017-09-08 12:00] VITALS: BP 121/79
--- NOTE | 2017-09-08 12:55 | GI Initial Consult Note ---
History of Present Illness General Date patient seen: September 08, 2017 Time patient seen: 13:31 Reason for Hospitalization: Multiple Trauma/Fall Referring physician: JUAN FRANCISCO OCAMPO Reason for Consultation: ABDOMINAL PAIN Present Illness HPI This is a 52-year-old female with history of back surgery and stimulator placed. She has history of chronic back pain. She presents with chief complaint of right-sided back pain after a fall. She says she tripped. This occurred couple days ago. Pain is severe 10 out of 10. No nausea no vomiting. She is normally weak on the right side. Also had bad vision. No head injury. No loss of consciousness. Pain is 10 out of 10. No radiation. Worse with movement. GI consulted for abdominal pain. Pt seen, awake A&Ox4 c/o of severe abdominal pain, states possibly from her back pain. Labs reviewed. No anemia , elevated alkaline phosphatase. No history of colonoscopy. Home Meds Reported Medications Tizanidine Hcl* (ZANAFLEX*) 4 Mg Tablet, 4 MG ORAL THREE TIMES A DAY, #90 TAB 0 Refills 08/12/17 Lisinopril (LISINOPRIL*) 5 Mg Tablet, 10 MG ORAL DAILY, TAB 08/12/17 Hydralazine Hcl* (HYDRALAZINE HCL*) 25 Mg Tablet, 25 MG ORAL EVERY 4 HOURS PRN for PRN, TAB 0 Refills 08/12/17 Folic Acid* (FOLIC ACID*) 1 Mg Tablet, 2 MG ORAL DAILY, TAB 08/12/17 Diphenhydramine HCl (Benadryl) 25 Mg Capsule, 25 MG PO Q6HR, CAP 08/04/17 Lorazepam* (LORAZEPAM*) 1 Mg Tablet, 1 MG ORAL THREE TIMES A DAY, TAB 08/04/17 Carisoprodol* (SOMA*) 350 Mg Tablet, 350 MG PO TID, TAB 08/04/17 Dicyclomine Hcl (DICYCLOMINE HCL) 20 Mg Tablet, 20 MG PO FOUR TIMES A DAY, TAB 08/04/17 Losartan Potassium* (LOSARTAN POTASSIUM*) 50 Mg Tablet, 50 MG ORAL BID, TAB 08/04/17 Clonazepam* (KLONOPIN*) 1 Mg Tablet, 1 MG ORAL BID, #15 TAB 0 Refills 08/04/17 Baclofen* (LIORESAL*) 20 Mg Tablet, 20 MG ORAL EVERY 6 HOURS, TAB 08/04/17 Hyoscyamine Sulfate* (LEVSIN-SL*) 0.125 Mg Tab.subl, 0.125 MG SL, #20 TAB 0 Refills 08/04/17 Hydromorphone HCl (Dilaudid) 4 Mg Tablet, 4 MG ORAL EVERY 4 HOURS, #20 TAB 0 Refills 08/04/17 Hyoscyamine* (LEVSINEX*) 0.375 Mg Tab.er.12h, 0.125 MG ORAL EVERY 12 HOURS, #20 CAP 0 Refills 06/04/17 Losartan Potassium* (LOSARTAN POTASSIUM*) 50 Mg Tablet, 50 MG ORAL DAILY, TAB 06/04/17 Morphine Sulfate (MINE) 30 Mg Cap.er.pel, 30 MG PO, CAP 06/04/17 Rivaroxaban (XARELTO*) 10 Mg Tablet, 20 MG ORAL DAILY, #30 TAB 0 Refills 06/04/17 Amlodipine Besylate (Norvasc) 10 Mg Tablet, 10 MG ORAL DAILY, TAB 06/04/17 Gabapentin* (GABAPENTIN*) 300 Mg Capsule, 300 MG ORAL THREE TIMES A DAY, CAP 0 Refills 06/04/17 Metoprolol Succinate* (TOPROL XL*) 50 Mg Tab.er.24h, 50 MG ORAL DAILY, TAB 06/04/17 Omeprazole (OMEPRAZOLE) 20 Mg Capsule.dr, 20 MG ORAL DAILY, CAP 06/04/17 Baclofen* (LIORESAL*) 20 Mg Tablet, 20 MG ORAL THREE TIMES A DAY, TAB 06/04/17 Ropinirole Hcl* (REQUIP*) 1 Mg Tablet, 1 MG ORAL THREE TIMES A DAY, #90 TAB 0 Refills 06/04/17 Clonazepam* (KLONOPIN*) 1 Mg Tablet, 1 MG ORAL Q6H, #15 TAB 0 Refills 06/04/17 Hydromorphone Hcl (DILAUDID) 1 Mg/1 Ml Liquid, 4 MG PO, ML 06/04/17 Med list reviewed/reconciled: Yes Allergies: Coded Allergies: IRON (Verified Allergy, Unknown, Rash, 08/09/17) had nausea, vomiting and rashes METHADONE (Verified Allergy, Unknown, 06/04/17) MORPHINE (Verified Allergy, Unknown, 09/06/17) PREGABALIN (Verified Allergy, Unknown, 06/04/17) Patient History History Provided By: Patient, Medical Record PMH Narrative Past Medical History: see triage record, old chart reviewed Past Surgical History: other Pertinent Family History: none Social History: Denies: smoking Now: No Immunizations: other Reviewed Nursing Documentation: PMH: Agreed; PSxH: Agreed Nursing Documentation-PMH Past Medical History: No History, Except For Hx Cardiac Problems: Yes Hx Hypertension: Yes Hx Cancer: No Hx Gastrointestinal Problems: Yes - GERD Hx Neurological Problems: Yes - Cauda Equina Syndrome Hx Neurologic Surgery: Yes - 2010 Spinal surgery Review of Systems All Other Systems: negative except mentioned in HPI Physical Exam Vital Signs Date Time Temp Pulse Resp B/P (MAP) Pulse Ox O2 Delivery O2 Flow Rate FiO2 09/05/17 21:39 98.4 74 18 152/107 98 Room Air 98.4 Sp02 EP Interpretation: reviewed, normal Labs Laboratory Tests Test 09/08/17 07:00 09/08/17 07:40 Sodium Level 138 MMOL/L (136-145) Potassium Level 4.2 MMOL/L (3.5-5.1) Chloride Level 104 MMOL/L (98-107) Carbon Dioxide Level 26 MMOL/L (21-32) Anion Gap 8 mmol/L (5-15) Blood Urea Nitrogen 21 mg/dL (7-18) H Creatinine 0.7 MG/DL (0.55-1.30) Estimat Glomerular Filtration Rate > 60 mL/min (>60) Glucose Level 95 MG/DL (74-106) Calcium Level 9.4 MG/DL (8.5-10.1) Total Bilirubin 0.3 MG/DL (0.2-1.0) Aspartate Amino Transf (AST/SGOT) 13 U/L (15-37) L Alanine Aminotransferase (ALT/SGPT) 20 U/L (12-78) Alkaline Phosphatase 155 U/L (46-116) H Total Protein 8.2 G/DL (6.4-8.2) Albumin 3.7 G/DL (3.4-5.0) Globulin 4.5 g/dL Albumin/Globulin Ratio 0.8 (1.0-2.7) L White Blood Count 5.2 K/UL (4.8-10.8) Red Blood Count 4.06 M/UL (4.20-5.40) L Hemoglobin 12.5 G/DL (12.0-16.0) Hematocrit 37.5 % (37.0-47.0) Mean Corpuscular Volume 92 FL (80-99) Mean Corpuscular Hemoglobin 30.8 PG (27.0-31.0) Mean Corpuscular Hemoglobin Concent 33.3 G/DL (32.0-36.0) Red Cell Distribution Width 14.5 % (11.6-14.8) Platelet Count 205 K/UL (150-450) Mean Platelet Volume 5.6 FL (6.5-10.1) L Neutrophils (%) (Auto) 60.8 % (45.0-75.0) Lymphocytes (%) (Auto) 29.7 % (20.0-45.0) Monocytes (%) (Auto) 6.0 % (1.0-10.0) Eosinophils (%) (Auto) 2.1 % (0.0-3.0) Basophils (%) (Auto) 1.5 % (0.0-2.0) General Appearance: well appearing, no apparent distress, alert Head: normocephalic EENT: PERRL/EOMI, normal ENT inspection Neck: supple Respiratory: normal breath sounds, no respiratory distress Cardiovascular: normal rate Gastrointestinal: normal inspection, non tender, soft, normal bowel sounds, non -distended Rectal: deferred Genitourinary: no CVA tenderness Musculoskeletal: normal inspection, back normal Neurologic: normal inspection, alert, oriented x3, responsive Psychiatric: normal inspection, judgement/insight normal, memory normal Skin: normal inspection, normal color, no rash, warm/dry, palpation normal, well hydrated Lymphatic: normal inspection, no adenopathy Current Medications Current Medications Medications (Trade) Dose Ordered Sig/Danni Route PRN Reason Start Time Stop Time Status Last Admin Dose Admin Amlodipine Besylate (Norvasc) 10 mg DAILY ORAL 09/06/17 09:00 10/06/17 08:59 09/08/17 09:32 Chlorhexidine Gluconate (Margot-Hex 2%) 1 applic DAILY@2100 TOPIC 09/07/17 21:00 10/07/17 20:59 09/07/17 21:05 Clonazepam (KlonoPIN) 1 mg Q6H ORAL 09/06/17 06:00 09/13/17 05:59 09/08/17 12:29 Dextrose/Sodium Chloride 1,000 ml @ 60 mls/hr [id number] IV 09/06/17 02:45 10/06/17 02:44 09/08/17 04:26 Diphenhydramine HCl (Benadryl) 25 mg Q6H PRN IVP Itching 09/06/17 09:00 10/06/17 08:59 09/08/17 12:29 Folic Acid (Folate) 2 mg DAILY ORAL 09/06/17 09:00 10/06/17 08:59 09/08/17 09:28 Gabapentin (Neurontin) 300 mg THREE TIMES A DAY ORAL 09/06/17 09:00 10/06/17 08:59 09/08/17 09:31 Hydralazine HCl (Apresoline) 25 mg Q4H PRN ORAL PRN 09/06/17 02:45 10/06/17 02:44 Hydromorphone HCl (Dilaudid) 2 mg Q4H PRN IVP severe pain 09/06/17 09:00 09/13/17 08:59 09/08/17 09:57 Lisinopril (Zestril) 10 mg DAILY ORAL 09/06/17 09:00 10/06/17 08:59 09/08/17 09:45 Lorazepam (Ativan 2mg/ml 1ml) 1 mg Q6H PRN IV For Anxiety 09/06/17 09:00 09/13/17 08:59 Metoprolol Succinate (Toprol XL) 50 mg DAILY ORAL 09/06/17 09:00 10/06/17 08:59 09/08/17 09:35 Morphine Sulfate (MS Contin) 15 mg Q8HR ORAL 09/06/17 14:00 09/13/17 13:59 09/08/17 05:53 Rivaroxaban (Xarelto) 20 mg DAILY ORAL 09/06/17 09:00 10/06/17 08:59 09/08/17 09:40 Ropinirole HCl (Requip) 1 mg THREE TIMES A DAY ORAL 09/06/17 09:00 10/06/17 08:59 09/08/17 09:33 Tizanidine HCl (Zanaflex) 4 mg THREE TIMES A DAY ORAL 09/06/17 09:00 10/06/17 08:59 09/08/17 09:44 GI: Plan Problems: (1) abdominal pain (2) Muscle spasm Plan fu abdominal U/S >> ok to restart diet after imaging study bentyl prn for abdominal spasm stool studies, cdiff for diarrhea pain mgmt ppi fu labs outpatient GI procedures Discussed with Dr. Haines. Thank you for this patient referral, we will follow. Felicitas Peace N.P. September 08, 2017 12:55
[2017-09-08] MEDS ORDERED: Dicyclomine 10mg Cap ORAL PRN (13:00)
--- NOTE | 2017-09-08 13:29 | General Progress Note ---
Assessment/Plan Problem List: (1) Anemia ICD Codes: D64.9 - Anemia, unspecified SNOMED: 037126888 (2) HTN (hypertension) ICD Codes: I10 - Essential (primary) hypertension SNOMED: 70448993 (3) Muscle spasm ICD Codes: M62.838 - Other muscle spasm SNOMED: 28442394, 51247743 (4) pain (5) Chronic pain syndrome ICD Codes: G89.4 - Chronic pain syndrome SNOMED: 912458308 (6) Back pain ICD Codes: M54.9 - Dorsalgia, unspecified SNOMED: 049736589 Qualifiers: Qualified Codes: M54.5 - Low back pain Status: unchanged Assessment/Plan ot pt diet pain control cbc bmp am dc plan w hh Subjective Constitutional: Reports: weakness Allergies: Coded Allergies: IRON (Verified Allergy, Unknown, Rash, 08/09/17) had nausea, vomiting and rashes METHADONE (Verified Allergy, Unknown, 06/04/17) MORPHINE (Verified Allergy, Unknown, 09/06/17) PREGABALIN (Verified Allergy, Unknown, 06/04/17) All Systems: reviewed and negative except above Subjective c/o some stomach and back pain Objective Last 24 Hour Vital Signs Date Time Temp Pulse Resp B/P (MAP) Pulse Ox O2 Delivery O2 Flow Rate FiO2 09/08/17 12:00 98.3 73 16 121/79 100 98.3 09/08/17 09:45 139/79 09/08/17 09:35 72 139/79 09/08/17 09:32 72 139/79 09/08/17 08:00 97.9 72 18 139/79 100 97.9 09/08/17 04:00 98.1 55 16 154/82 98 98.1 09/08/17 04:00 55 56 55 09/08/17 00:00 98.2 61 20 145/80 100 98.2 09/07/17 20:00 98.4 63 19 122/73 99 98.4 09/07/17 17:02 77 81 79 09/07/17 16:00 97.3 77 20 138/86 99 Room Air 97.3 Intake and Output 09/07/17 09/08/17 19:00 07:00 Intake Total 840 ml 860 ml Balance 840 ml 860 ml Intake Oral 240 ml 260 ml IV Total 600 ml 600 ml # Voids 4 2 Laboratory Tests 09/08/17 07:00: Sodium Level 138, Potassium Level 4.2, Chloride Level 104, Carbon Dioxide Level 26, Anion Gap 8, Blood Urea Nitrogen 21H, Creatinine 0.7, Estimat Glomerular Filtration Rate > 60, Glucose Level 95, Calcium Level 9.4, Total Bilirubin 0.3, Aspartate Amino Transf (AST/SGOT) 13L, Alanine Aminotransferase (ALT/SGPT) 20, Alkaline Phosphatase 155H, Total Protein 8.2, Albumin 3.7, Globulin 4.5, Albumin /Globulin Ratio 0.8L 09/08/17 07:40: White Blood Count 5.2, Red Blood Count 4.06L, Hemoglobin 12.5, Hematocrit 37.5, Mean Corpuscular Volume 92, Mean Corpuscular Hemoglobin 30.8, Mean Corpuscular Hemoglobin Concent 33.3, Red Cell Distribution Width 14.5, Platelet Count 205, Mean Platelet Volume 5.6L, Neutrophils (%) (Auto) 60.8, Lymphocytes (%) (Auto) 29.7, Monocytes (%) (Auto) 6.0, Eosinophils (%) (Auto) 2.1, Basophils (%) (Auto ) 1.5 Height (Feet): 5 Height (Inches): 3.00 Weight (Pounds): 140 General Appearance: lethargic EENT: normal ENT inspection Neck: normal alignment Cardiovascular: normal peripheral pulses, normal rate, regular rhythm Respiratory/Chest: chest wall non-tender, lungs clear, normal breath sounds Abdomen: normal bowel sounds, non tender, soft Extremities: normal inspection Edema: no edema noted Arm (L), no edema noted Arm (R), no edema noted Leg (L), no edema noted Leg (R), no edema noted Pedal (L), no edema noted Pedal (R), no edema noted Generalized Neurologic: responsive, motor weakness Skin: normal pigmentation, warm/dry JUAN FRANCISCO OCAMPO September 08, 2017 13:29
[2017-09-08 16:00] VITALS: BP 134/70
--- NOTE | 2017-09-08 19:39 | Cardiology Progress Note ---
Assessment/Plan Assessment/Plan [id number] doing well ahs been upa an about today she says neuro input noted barrios planned cv stabel Subjective Cardiovascular: Denies: chest pain, lightheadedness Respiratory: Denies: shortness of breath Gastrointestinal/Abdominal: Reports: abdominal pain, diarrhea Genitourinary: Denies: burning Objective Last 24 Hour Vital Signs Date Time Temp Pulse Resp B/P (MAP) Pulse Ox O2 Delivery O2 Flow Rate FiO2 09/08/17 16:00 98.5 58 19 134/70 99 98.5 09/08/17 12:00 98.3 73 16 121/79 100 98.3 09/08/17 09:45 139/79 09/08/17 09:35 72 139/79 09/08/17 09:32 72 139/79 09/08/17 08:00 97.9 72 18 139/79 100 97.9 09/08/17 04:00 98.1 55 16 154/82 98 98.1 09/08/17 04:00 55 56 55 09/08/17 00:00 98.2 61 20 145/80 100 98.2 09/07/17 20:00 98.4 63 19 122/73 99 98.4 General Appearance: alert Neck: no JVD Cardiovascular: normal rate, regular rhythm Respiratory/Chest: lungs clear Abdomen: normal bowel sounds, non tender, soft Extremities: no swelling Intake and Output 09/07/17 09/08/17 19:00 07:00 Intake Total 840 ml 920 ml Balance 840 ml 920 ml Intake Oral 240 ml 260 ml IV Total 600 ml 660 ml # Voids 4 2 Laboratory Tests Test 09/08/17 07:00 09/08/17 07:40 Sodium Level 138 MMOL/L (136-145) Potassium Level 4.2 MMOL/L (3.5-5.1) Chloride Level 104 MMOL/L (98-107) Carbon Dioxide Level 26 MMOL/L (21-32) Anion Gap 8 mmol/L (5-15) Blood Urea Nitrogen 21 mg/dL (7-18) H Creatinine 0.7 MG/DL (0.55-1.30) Estimat Glomerular Filtration Rate > 60 mL/min (>60) Glucose Level 95 MG/DL (74-106) Calcium Level 9.4 MG/DL (8.5-10.1) Total Bilirubin 0.3 MG/DL (0.2-1.0) Aspartate Amino Transf (AST/SGOT) 13 U/L (15-37) L Alanine Aminotransferase (ALT/SGPT) 20 U/L (12-78) Alkaline Phosphatase 155 U/L (46-116) H Total Protein 8.2 G/DL (6.4-8.2) Albumin 3.7 G/DL (3.4-5.0) Globulin 4.5 g/dL Albumin/Globulin Ratio 0.8 (1.0-2.7) L White Blood Count 5.2 K/UL (4.8-10.8) Red Blood Count 4.06 M/UL (4.20-5.40) L Hemoglobin 12.5 G/DL (12.0-16.0) Hematocrit 37.5 % (37.0-47.0) Mean Corpuscular Volume 92 FL (80-99) Mean Corpuscular Hemoglobin 30.8 PG (27.0-31.0) Mean Corpuscular Hemoglobin Concent 33.3 G/DL (32.0-36.0) Red Cell Distribution Width 14.5 % (11.6-14.8) Platelet Count 205 K/UL (150-450) Mean Platelet Volume 5.6 FL (6.5-10.1) L Neutrophils (%) (Auto) 60.8 % (45.0-75.0) Lymphocytes (%) (Auto) 29.7 % (20.0-45.0) Monocytes (%) (Auto) 6.0 % (1.0-10.0) Eosinophils (%) (Auto) 2.1 % (0.0-3.0) Basophils (%) (Auto) 1.5 % (0.0-2.0) TICO MACARIO September 08, 2017 19:39
[2017-09-08 20:00] VITALS: BP 122/77
[2017-09-08] MEDS: Dyna-Hex 2% Top Sol 2oz TOPIC SCH (20:21)
--- NOTE | 2017-09-08 20:59 | Neurology Progress Note ---
Interim History Interim History Interim History Ms. Carmona feels better. The spasms are better. The pain is also better. She was able to walk better today. She denies any new neurologic symptoms. Review of Systems Neuro Review of Systems Benign. Objective Physical Exam Last Vital Signs Date Time Temp Pulse Resp B/P (MAP) Pulse Ox O2 Delivery O2 Flow Rate FiO2 09/08/17 20:00 98.3 82 16 122/77 100 98.3 09/07/17 16:00 Room Air Laboratory Tests Test 09/08/17 07:00 09/08/17 07:40 Sodium Level 138 MMOL/L (136-145) Potassium Level 4.2 MMOL/L (3.5-5.1) Chloride Level 104 MMOL/L (98-107) Carbon Dioxide Level 26 MMOL/L (21-32) Anion Gap 8 mmol/L (5-15) Blood Urea Nitrogen 21 mg/dL (7-18) H Creatinine 0.7 MG/DL (0.55-1.30) Estimat Glomerular Filtration Rate > 60 mL/min (>60) Glucose Level 95 MG/DL (74-106) Calcium Level 9.4 MG/DL (8.5-10.1) Total Bilirubin 0.3 MG/DL (0.2-1.0) Aspartate Amino Transf (AST/SGOT) 13 U/L (15-37) L Alanine Aminotransferase (ALT/SGPT) 20 U/L (12-78) Alkaline Phosphatase 155 U/L (46-116) H Total Protein 8.2 G/DL (6.4-8.2) Albumin 3.7 G/DL (3.4-5.0) Globulin 4.5 g/dL Albumin/Globulin Ratio 0.8 (1.0-2.7) L White Blood Count 5.2 K/UL (4.8-10.8) Red Blood Count 4.06 M/UL (4.20-5.40) L Hemoglobin 12.5 G/DL (12.0-16.0) Hematocrit 37.5 % (37.0-47.0) Mean Corpuscular Volume 92 FL (80-99) Mean Corpuscular Hemoglobin 30.8 PG (27.0-31.0) Mean Corpuscular Hemoglobin Concent 33.3 G/DL (32.0-36.0) Red Cell Distribution Width 14.5 % (11.6-14.8) Platelet Count 205 K/UL (150-450) Mean Platelet Volume 5.6 FL (6.5-10.1) L Neutrophils (%) (Auto) 60.8 % (45.0-75.0) Lymphocytes (%) (Auto) 29.7 % (20.0-45.0) Monocytes (%) (Auto) 6.0 % (1.0-10.0) Eosinophils (%) (Auto) 2.1 % (0.0-3.0) Basophils (%) (Auto) 1.5 % (0.0-2.0) Neurologic Exam Objective PHYSICAL EXAMINATION: GENERAL: She is a well-developed, well-nourished, pleasant, black lady, sitting up on her commode, in no acute distress. HEAD: Normocephalic and atraumatic. EENT: Examination benign. NECK: No neck rigidity was observed. SPINE: Her lumbosacral spine revealed significant scarring from prior surgery. NEUROLOGICAL EXAMINATION: MENTAL STATUS EXAMINATION: She was awake and alert. Her cerebration was slow. She was oriented to person, place, and time with minimum hints. She was able to recall 3/3 words immediately and could remember them in 1 and 3 minutes on the second trial. She was able to remember presidents Trump through Venegas senior with hints. Her mathematical skills were minimally impaired. Her visuospatial function was relatively good. SPEECH: She had no dysarthria. LANGUAGE: She had no aphasia. CRANIAL NERVE EXAMINATION: II: The visual montero were intact in the left eye. She had loss of vision with no light perception in the right eye. III, IV & : The external ocular movements were full in the left eye, but restricted in the right eye. The right pupil was 3 mm and did not react to light. The left pupil was 3 mm and reacted sluggishly to light. V: She had normal facial sensations and the temporales, masseters, and pterygoids function normally. VII: She had a right VII central facial paresis. VIII: She was able to hear well bilaterally and had no nystagmus. IX: The palate moved symmetrically on phonation. X: She had no hoarseness of voice. XI: The sternocleidomastoids and trapezii functioned normally. XII: The tongue was in the midline without any fasciculations or atrophy. MOTOR SYSTEM: The tone was normal in all four extremities. Examination of muscle mass revealed no focal wasting. Examination of power revealed G 5/5 power except for G 5-/5 power in the right finger extensors, G 4+/5 power in the right iliopsoas, and G 0/5 power in the right ankle dorsiflexors and toe extensors. SENSORY EXAMINATION: She had a subjective alteration to pinprick and light touch over entire right body. REFLEXES: 1+ and bilaterally symmetrical at the biceps, triceps, and brachioradialis, 0 on the right, and 2+ on the left at the knees, 0 at both ankles. The plantar responses were flexor bilaterally. COORDINATION: She performed well on [id number] testing. She was unable to perform [id number] testing. STANCE: She stood up with support. GAIT: She walked with support with a right greater than left paretic gait with a significant right footdrop. Her gait was steadier. ABNORMAL MOVEMENTS: She had a dystonic tremor involving the right upper extremity. Impression/Recommendations Diagnostic Impression 1. Ms. Naz Carmona is a 52-year-old, right-handed, black lady, who does have a past history of lumbosacral spine disease for which she has had extensive surgery with a failed back associated with chronic low back pain and spasms involving the right lower extremity for which she has had a spinal stimulator placed. 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 A few days ago, she fell down and hurt her right side. Since then, she has had significant low back pain and spasms involving the right calf that spread up to involve her entire right lower extremity and back. She was hospitalized for that. 2. She feels better. The spasms are better. The pain is also better. She was able to walk better today. She denies any new neurologic symptoms. 3. On neurological examination, at this time, she does demonstrate mild slowing of cerebration, mild problems with memory, loss of vision in the right eye, and restricted eye movements in the right eye, a right VII central facial paresis, right-sided weakness with G 5/5 weakness in the finger extensors, G 4+/5 power in the iliopsoas, and G 0/5 power in the ankle dorsiflexors and toe extensors, a subjective alteration of sensation over entire right body, diminished deep tendon reflexes globally with loss of the right knee jerk and a right greater than left paretic gait which is significantly better. In addition, she has a right upper extremity dystonic tremor. 4. The CT of the brain and LS spine are benign for acute pathology. 5. The most likely etiology for the patient's right lower extremity pain and spasms would be local trauma involving that area. The right hemiparesis and hemisensory deficit are unexplained. Recommendations 1. Continue present management. 2. Continue pain management as per Pain Management physician. 3. Continue Soma for muscle spasms. 4. Physical and occupational therapy. Chelly Antoine M.D., M.S.P.H. CHELLY ANTOINE September 08, 2017 20:59
[2017-09-09] VITALS: BP 131/76
[2017-09-09 04:00] VITALS: BP 133/76
[2017-09-09] MEDS: MS Contin 15mg tab ORAL SCH ×2 (06:01→14:05)
[2017-09-09] MEDS: DiphenhydrAMINE 50mg/ml Inj IVP PRN ×2 (06:02→14:05)
[2017-09-09 08:00] VITALS: BP 142/81
--- NOTE | 2017-09-09 08:45 | Consultation ---
DATE OF CONSULTATION: 09/07/2017 NOTE: POOR AUDIO CARDIOLOGY CONSULTATION CONSULTING PHYSICIAN: Valentino Camilo M.D. REFERRING PHYSICIAN: Ernesto Magallon D.O. REASON FOR REFERRAL: Fall. HISTORY OF PRESENT ILLNESS: This is an middle-aged female who has history of multiple medical problems including the fact that she has basically decreased vision and uses a walker to get around walker and has problem with the vision. She has been wearing a long dress, has a drop foot, she says and she turned around while standing next to her and hand and actually fell on the floor. She had problems with her right leg for a while, but eventually she got concerned so came to the emergency room at [facility]. She really does not have any exertional chest pain. There is no exertional shortness of breath. She uses three pillows at night for reflux symptoms. No palpitations. No dizziness or lightheadedness on standing. She does remember the fall. She did not lose consciousness. Her she says was not fast enough to keep her from falling and she was fast enough to hold on to her to keep from falling, she says. PAST MEDICAL HISTORY: Positive for high blood pressure, which is a reactive component of pain. No diabetes. No high cholesterol. No heart attack. No cancer, stroke, hepatitis, tuberculosis, asthma, or emphysema. She does have history of ulcers. No kidney problems, liver problems, thyroid problems, arthritis. She has had history of anemia. She has history of depression. 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 She has spinal problems with multiple surgeries and she is status post nerve stimulator placement. ALLERGIES: Including methadone, morphine, and Lyrica. SOCIAL HISTORY: She does not smoke at the present time. Occasionally drinks alcoholic beverages. Denies any drug use. She is . REVIEW OF SYSTEMS: GASTROINTESTINAL: She has some nausea, otherwise everything else negative. GENITOURINARY: Negative. PULMONARY: Occasional cough. CONSTITUTIONAL: Negative. PHYSICAL EXAMINATION: GENERAL: Shows to be middle-aged female, in no respiratory distress. NECK: Supple. No jugular venous distention. LUNGS: Clear to auscultation and percussion. CARDIAC: S1 is normal. S2 is normal. Regular rate and rhythm. No heaves, thrills, or gallops noted ABDOMEN: Soft and nontender. Positive bowel sounds. EXTREMITIES: There is no clubbing, cyanosis, nor edema. NEUROLOGICAL: She is awake, alert, responsive, in no apparent distress. LABORATORY AND DIAGNOSTIC DATA: White count of 5.3, hemoglobin 10.8, and platelet count 234. Sodium is 141, potassium 3.5, chloride 105, bicarbonate 28, BUN of 18, creatinine 0.7, glucose of 132, and calcium is 8.9. She has had urinalysis on 07/27/2017 showed wbc's and rbc's. CT scan of her head showed mild degenerative changes secondary to artifact. No evidence of bleeding. CT scan of her spine shows extensive postsurgical lumbar spine changes. No other significant tests available. ASSESSMENT/PLAN: 1. Non-syncopal fall. 2. Elevated blood pressure. 3. Status post spine disorder. Dr. Magallon, this patient was seen in cardiac consultation. The patient remembers the fall. Does not have any loss of consciousness, and I do think the fall is syncopal in nature. EKG will be ordered. Liver function tests will be ordered. Orthostatic vitals will be checked and further recommendations as become necessary. Valentino Camilo M.D. DR: Shamika JOB#: [id number] CC:
--- NOTE | 2017-09-09 09:22 | General Progress Note ---
Assessment/Plan Assessment/Plan (1) Lumbar DDD (2) Lumbar spondylosis (4) Lumbar Herniated disc (5) Lumbar Radiculopathy (6) FBSS (7) Abdominal pain Patient to be continued on Morphine ER and Dilaudid. No perceptions for opioids needed pt seeing pain specialist as outpt. D/w Dr. Singh and he concurred. Subjective Date patient seen: September 09, 2017 Time patient seen: 08:00 - am Allergies: Coded Allergies: IRON (Verified Allergy, Unknown, Rash, 08/09/17) had nausea, vomiting and rashes METHADONE (Verified Allergy, Unknown, 06/04/17) MORPHINE (Verified Allergy, Unknown, 09/06/17) PREGABALIN (Verified Allergy, Unknown, 06/04/17) Subjective REVIEW OF SYSTEMS: Denies rash, fever, chills, sweating, dizziness, drowsiness, blurred vision, sore throat, or change in her weight. No shortness of breath or chest pain. No nausea, vomiting, diarrhea, or blood in stool or urine. No bowel or bladder incontinence. No dysuria. She is complaining of low back pain and abdominal pain SUBJECTIVE: Patient has been seen by GI and started on Bentyl. 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 No perceptions for opioids needed pt seeing pain specialist as outpt. Objective Last 24 Hour Vital Signs Date Time Temp Pulse Resp B/P (MAP) Pulse Ox O2 Delivery O2 Flow Rate FiO2 09/09/17 08:00 98.1 72 18 142/81 100 98.1 09/09/17 04:00 52 57 64 09/09/17 04:00 97.5 57 20 133/76 100 97.5 09/09/17 00:00 98.0 60 17 131/76 100 98.0 09/08/17 20:00 98.3 82 16 122/77 100 98.3 09/08/17 16:00 98.5 58 19 134/70 99 98.5 09/08/17 12:00 98.3 73 16 121/79 100 98.3 09/08/17 09:45 139/79 09/08/17 09:35 72 139/79 09/08/17 09:32 72 139/79 Intake and Output 09/08/17 09/09/17 19:00 07:00 Intake Total 660 ml 1660 ml Balance 660 ml 1660 ml IV Total 660 ml 660 ml Other 1000 ml # Voids 5 # Bowel Movements 1 3 Height (Feet): 5 Height (Inches): 3.00 Weight (Pounds): 140 Objective GENERAL: Alert, awake, and oriented x3. HEENT: PERRLA on the left. On the right, prosthetic eye noted. NECK: Range of motion is full in all directions. LUNGS: Clear. HEART: Regular. ABDOMEN: Tenderness to palpation. BACK: Range of motion is decreased in flexion and extension with surgical scar noted. Tenderness to palpation. EXTREMITIES: Upper and lower extremity range of motion is decreased due to the patient's condition. No cyanosis. No clubbing. Sensory is reduced. Reflexes are not obtainable. No adenopathy. SUNITHA CASTILLO September 09, 2017 09:22
--- NOTE | 2017-09-09 09:26 | Diagnostic Imaging Report ---
Indication:Abdominal pain Technique: Grayscale and duplex Doppler imaging of the abdomen performed. Comparison: None Findings: The liver, demonstrated part of the gallbladder IVC, both kidneys, spleen appear unremarkable. Pancreas and aorta are poorly seen. There is no biliary ductal dilatation identified. Doppler evaluation of the main portal vein shows patency. There is no ascites. No hydronephrosis seen. Impression: No acute findings.
[2017-09-09] MEDS: Lisinopril 2.5mg tab ORAL SCH (09:27)
[2017-09-09] MEDS: Xarelto 10mg tab ORAL SCH (09:27)
[2017-09-09] MEDS: Metoprolol Succinate XL 50mg tab ORAL SCH (09:27)
[2017-09-09 11:08] LABS: ANION GAP 7 mmol/L (5-15); BLOOD UREA NITROGEN 17 mg/dL (7-18); CALCIUM 8.8 MG/DL (8.5-10.1); CARBON DIOXIDE 28 MMOL/L (21-32); CHLORIDE 107 MMOL/L (98-107); CREATININE 0.8 MG/DL (0.55-1.30); POTASSIUM 3.8 MMOL/L (3.5-5.1); SODIUM 142 MMOL/L (136-145)
[2017-09-09 12:00] VITALS: BP 131/79
--- NOTE | 2017-09-09 12:40 | GI Progress Note ---
Assessment/Plan Problems: (1) abdominal pain (2) Anemia ICD Codes: D64.9 - Anemia, unspecified SNOMED: 725244446 (3) Muscle spasm ICD Codes: M62.838 - Other muscle spasm SNOMED: 37928333, 56118641 (4) Opioid dependence ICD Codes: F11.20 - Opioid dependence, uncomplicated SNOMED: 15741172 Qualifiers: Qualified Codes: F11.20 - Opioid dependence, uncomplicated (5) Hypoalbuminemia ICD Codes: E88.09 - Other disorders of plasma-protein metabolism, not elsewhere classified SNOMED: 736449642 Status: unchanged Status Narrative Discussed with Dr. Haines. Assessment/Plan abdominal U/S reviewed >> negative okay for DC per GI standpoint bentyl prn for abdominal spasm stool studies, cdiff for diarrhea pain mgmt ppi fu labs outpatient GI procedures Subjective Gastrointestinal/Abdominal: Reports: abdominal pain Objective Last 24 Hour Vital Signs Date Time Temp Pulse Resp B/P (MAP) Pulse Ox O2 Delivery O2 Flow Rate FiO2 09/09/17 12:00 98.0 57 18 131/79 99 98.0 09/09/17 09:28 72 142/81 09/09/17 09:27 72 142/81 09/09/17 09:27 142/81 09/09/17 08:00 98.1 72 18 142/81 100 98.1 09/09/17 04:00 52 57 64 09/09/17 04:00 97.5 57 20 133/76 100 97.5 09/09/17 00:00 98.0 60 17 131/76 100 98.0 09/08/17 20:00 98.3 82 16 122/77 100 98.3 09/08/17 16:00 98.5 58 19 134/70 99 98.5 Intake and Output 09/08/17 09/09/17 19:00 07:00 Intake Total 660 ml 1660 ml Balance 660 ml 1660 ml IV Total 660 ml 660 ml Other 1000 ml # Voids 5 # Bowel Movements 1 3 Laboratory Tests Test 09/09/17 10:15 Sodium Level 142 MMOL/L (136-145) Potassium Level 3.8 MMOL/L (3.5-5.1) Chloride Level 107 MMOL/L (98-107) Carbon Dioxide Level 28 MMOL/L (21-32) Anion Gap 7 mmol/L (5-15) Blood Urea Nitrogen 17 mg/dL (7-18) Creatinine 0.8 MG/DL (0.55-1.30) Estimat Glomerular Filtration Rate > 60 mL/min (>60) Glucose Level 120 MG/DL (74-106) H Calcium Level 8.8 MG/DL (8.5-10.1) Height (Feet): 5 Height (Inches): 3.00 Weight (Pounds): 140 General Appearance: WD/WN, no apparent distress, alert Cardiovascular: normal rate Respiratory/Chest: normal breath sounds, no respiratory distress Abdominal Exam: normal bowel sounds, non tender, soft Extremities: normal range of motion, non-tender Felicitas Peace N.P. September 09, 2017 12:40
--- NOTE | 2017-09-09 14:03 | General Progress Note ---
Assessment/Plan Problem List: (1) Anemia ICD Codes: D64.9 - Anemia, unspecified SNOMED: 142146413 (2) HTN (hypertension) ICD Codes: I10 - Essential (primary) hypertension SNOMED: 93078669 (3) Muscle spasm ICD Codes: M62.838 - Other muscle spasm SNOMED: 73027815, 34658609 (4) pain (5) Chronic pain syndrome ICD Codes: G89.4 - Chronic pain syndrome SNOMED: 373204744 (6) Back pain ICD Codes: M54.9 - Dorsalgia, unspecified SNOMED: 289863351 Qualifiers: Qualified Codes: M54.5 - Low back pain Status: stable, progressing, tolerating diet Assessment/Plan ot pt diet pain control dc w hh Subjective Constitutional: Reports: weakness Allergies: Coded Allergies: IRON (Verified Allergy, Unknown, Rash, 08/09/17) had nausea, vomiting and rashes METHADONE (Verified Allergy, Unknown, 06/04/17) MORPHINE (Verified Allergy, Unknown, 09/06/17) PREGABALIN (Verified Allergy, Unknown, 06/04/17) All Systems: reviewed and negative except above Subjective c/o some stomach and back pain Objective Last 24 Hour Vital Signs Date Time Temp Pulse Resp B/P (MAP) Pulse Ox O2 Delivery O2 Flow Rate FiO2 09/09/17 12:00 98.0 57 18 131/79 99 98.0 09/09/17 09:28 72 142/81 09/09/17 09:27 72 142/81 09/09/17 09:27 142/81 09/09/17 08:00 98.1 72 18 142/81 100 98.1 09/09/17 04:00 52 57 64 09/09/17 04:00 97.5 57 20 133/76 100 97.5 09/09/17 00:00 98.0 60 17 131/76 100 98.0 09/08/17 20:00 98.3 82 16 122/77 100 98.3 09/08/17 16:00 98.5 58 19 134/70 99 98.5 Intake and Output 09/08/17 09/09/17 19:00 07:00 Intake Total 660 ml 1660 ml Balance 660 ml 1660 ml IV Total 660 ml 660 ml Other 1000 ml # Voids 5 # Bowel Movements 1 3 Laboratory Tests 09/09/17 10:15: Sodium Level 142, Potassium Level 3.8, Chloride Level 107, Carbon Dioxide Level 28, Anion Gap 7, Blood Urea Nitrogen 17, Creatinine 0.8, Estimat Glomerular Filtration Rate > 60, Glucose Level 120H, Calcium Level 8.8 Height (Feet): 5 Height (Inches): 3.00 Weight (Pounds): 140 General Appearance: alert EENT: normal ENT inspection Neck: normal alignment Cardiovascular: normal peripheral pulses, normal rate, regular rhythm Respiratory/Chest: chest wall non-tender, lungs clear, normal breath sounds Abdomen: normal bowel sounds, non tender, soft Extremities: normal inspection Edema: no edema noted Arm (L), no edema noted Arm (R), no edema noted Leg (L), no edema noted Leg (R), no edema noted Pedal (L), no edema noted Pedal (R), no edema noted Generalized Neurologic: responsive, motor weakness Skin: normal pigmentation, warm/dry JUAN FRANCISCO OCAMPO September 09, 2017 14:03
[2017-09-09] MEDS: D5 1/2NS 1,000 ML IV SCH (14:05)
[2017-09-09] MEDS ORDERED: Heplock Flush 100 units/ml 3 ml syr INJ ONE (15:30)
[2017-09-09] MEDS ORDERED: D5 1/2NS 1000ml IV ONE ×2 (16:09)
[2017-09-10] MEDS ORDERED: Lisinopril 10mg tab ORAL SCH (09:00)
--- NOTE | 2017-09-10 12:29 | Discharge Summary ---
Discharge Summary Discharge Summary Discharge Summary DATE OF ADMISSION: 09/05/2017 DATE OF DISCHARGE: 09/09/2017 CONSULTANTS: Dr. Harley Angeles BRIEF HOSPITAL COURSE: Patient is a 52-year-old female with history of arachnoiditis, cauda equina, chronic back pain, fell 2 days prior to admission and had back pain 10/10. She denied head injury, and there was no loss of consciousness. She is normally weak on the right side, pain was worse with movement. She presented to ED for acute exacerbation of chronic pain. CT of the lumbar spine showed extensive post surgical changes. No evidence of acute fracture. Spinal cord stimulator in place. She was admitted for intractable pain, she was seen by infectious disease specialist and was given morphine extended release 15 mg tablet 8 hours around the clock, Dilaudid 2 mg IV every 4 hours when necessary, Neurontin 300 mg 3 times a day, and Zanaflex 4 mg 3 times a day. She underwent neurologic evaluation, most likely etiology of patient's right lower extremity pain and spasm would be local trauma involving that area. The right hemiparesis and hemisensory deficit are unexplained. CT of the brain and lower sacral spine are benign for acute pathology. She underwent cardiac evaluation. The patient had a non-syncopal fall. There was no loss of consciousness. She was continued on Norvasc 10 mg and metoprolol succinate 50 mg daily. She complained of abdominal pain. Abdominal ultrasound with no acute findings. She was given bentyl when necessary for abdominal spasms. C. difficile was negative. Diet was advanced, patient was eventually discharged home. FINAL DIAGNOSES: Chronic pain syndrome Muscle spasm Hypertension Anemia Opioid dependence Hypoalbuminemia DISPOSITION: Patient was discharged home with home health I have been assigned to dictate discharge summary on this account, and I was not involved in the patient's management. Alejandra Merchant NP September 10, 2017 12:29
== END 2017-09-09 16:10 | disposition home health service (06) | DRG 552 ==
LOC: EMR 22:00 → 4E 23:08 → EDBEDREQ 23:50
DX: M51.16 Intervertebral disc disorders with radiculopathy, lumbar region (principal); F11.20 Opioid dependence, uncomplicated; M47.9 Spondylosis, unspecified; I10 Essential (primary) hypertension; F41.8 Other specified anxiety disorders; F17.200 Nicotine dependence, unspecified, uncomplicated; D64.9 Anemia, unspecified; K21.9 Gastro-esophageal reflux disease without esophagitis; E88.09 Other disorders of plasma-protein metabolism, not elsewhere classified; M62.838 Other muscle spasm; Z86.718 Personal history of other venous thrombosis and embolism
CPT/HCPCS: 36415; 70450; 72131; 76700; 80048; 80053; 85025; 87324; 99285

== ENCOUNTER 2017-09-16 12:26 | Inpatient (IN) | payer MEDICARE, MEDICAID ==
[~2017-09-16] VITALS: Ht 160 cm; Wt 67.6 kg
[2017-09-16] MEDS: Methocarbamol 500mg tab ORAL ONE ×2 (13:15→13:40)
[2017-09-16 13:33] VITALS: BP 157/143
[2017-09-16 13:58] VITALS: BP 131/93
--- NOTE | 2017-09-16 14:06 | Emergency Room Report ---
History of Present Illness General Chief Complaint: General Complaint Source: Patient, Medical Record Present Illness HPI This patient has a history of chronic pain and requires high doses of narcotics. She also has arachnoiditis. She was recently discharged here from [facility] with uncontrolled pain. She continues to have uncontrolled pain. She has taken Dilaudid, morphine and muscle relaxants today prior to arrival without relief. She states she is very uncomfortable. She states that this has been ongoing and out of control. She denies new symptoms or complaints. She denies recent illness. She denies fever or chills. She has no other complaints. Allergies: Coded Allergies: IRON (Verified Allergy, Unknown, Rash, 08/09/17) had nausea, vomiting and rashes METHADONE (Verified Allergy, Unknown, 06/04/17) MORPHINE (Verified Allergy, Unknown, 09/06/17) PREGABALIN (Verified Allergy, Unknown, 06/04/17) Patient History Past Medical History: see triage record, HTN, other - chronic pain, opiod dependence, benzodiazepine dependence, Reviewed Nursing Documentation: PMH: Agreed; PSxH: Agreed Nursing Documentation-PMH Past Medical History: No History, Except For Hx Cardiac Problems: Yes - intractable pain, muscle cramping, anemia Hx Hypertension: Yes Hx Cancer: No Hx Gastrointestinal Problems: Yes - GERD Hx Neurological Problems: Yes - Cauda Equina Syndrome, R/O lumbar arachnoiditis Hx Neurologic Surgery: Yes - 2010 Spinal surgery Review of Systems All Other Systems: negative except mentioned in HPI Physical Exam Vital Signs Date Time Temp Pulse Resp B/P (MAP) Pulse Ox O2 Delivery O2 Flow Rate FiO2 09/16/17 12:44 97.9 90 18 157/129 99 Room Air 97.9 Sp02 EP Interpretation: reviewed, normal General Appearance: no apparent distress, alert, GCS 15, non-toxic Head: normocephalic, atraumatic Eyes: bilateral eye normal inspection, bilateral eye PERRL ENT: hearing grossly normal, normal pharynx, no angioedema, normal voice Neck: full range of motion, supple/symm/no masses Respiratory: chest non-tender, lungs clear, normal breath sounds, no respiratory distress, no retraction, no accessory muscle use, speaking full sentences Cardiovascular #1: regular rate, rhythm, no edema Gastrointestinal: normal bowel sounds, non tender, soft, non-distended, no guarding, no rebound Rectal: deferred Musculoskeletal: other - Antalgic gait, anxious, TTP along lumbar spine diffusely. Neurologic: alert, oriented x3, responsive, speech normal, other Psychiatric: judgement/insight normal, memory normal, mood/affect normal, no suicidal/homicidal ideation Skin: normal color, no rash, warm/dry, well hydrated Medical Decision Making Diagnostic Impression: Primary Impression: r/o lumbar arachnoiditis Additional Impressions: Chronic pain syndrome Opioid dependence ER Course This patient has chronic pain and a history of lumbar arachnoiditis. She also has opioid dependence and benzodiazepine dependence. She recently was admitted and had large doses of IV opioids and benzodiazepines. She was discharged and has home Dilaudid, morphine and muscle relaxants. This patient needs to be seen by pain management and undergo alternative therapies and further evaluation for her need for very high doses of narcotics. I am uncomfortable administering these narcotics in the emergency department. This patient will be admitted for further pain control and further evaluation by pain management. Labs pending. See EMR Last Vital Signs Date Time Temp Pulse Resp B/P (MAP) Pulse Ox O2 Delivery O2 Flow Rate FiO2 09/16/17 13:33 97.9 92 24 157/143 100 Room Air 97.9 Disposition: ADMITTED INPATIENT Condition: Stable JESSE ESPITIA D.O. September 16, 2017 14:06
[2017-09-16] MEDS ORDERED: Mylanta II UD 30ml ORAL PRN (15:30)
[2017-09-16 15:46] LABS: BASOPHILS % (AUTO) 1.4 % (0.0-2.0); EOSINOPHILS % (AUTO) 1.2 % (0.0-3.0); HEMATOCRIT 34.9 % (37.0-47.0); HEMOGLOBIN 11.5 G/DL (12.0-16.0); LYMPHOCYTES % (AUTO) 32.3 % (20.0-45.0); MEAN CORPUSCULAR VOLUME 90 FL (80-99); MONOCYTES % (AUTO) 5.8 % (1.0-10.0); NEUTROPHILS % (AUTO) 59.3 % (45.0-75.0); PLATELET COUNT 325 K/UL (150-450); RED BLOOD COUNT 3.88 M/UL (4.20-5.40); RED CELL DISTRIBUTION WIDTH 13.5 % (11.6-14.8); WHITE BLOOD COUNT 5.5 K/UL (4.8-10.8)
[2017-09-16 16:00] VITALS: BP 171/100
[2017-09-16 16:10] LABS: ANION GAP 11 mmol/L (5-15); BLOOD UREA NITROGEN 18 mg/dL (7-18); CARBON DIOXIDE 25 MMOL/L (21-32); CHLORIDE 105 MMOL/L (98-107); CREATININE 0.6 MG/DL (0.55-1.30); SODIUM 141 MMOL/L (136-145)
[2017-09-16 16:15] LABS: ALANINE AMINOTRANSFERASE 21 U/L (12-78); ALBUMIN 3.7 G/DL (3.4-5.0); ALBUMIN/GLOBULIN RATIO 0.9 (1.0-2.7); ALKALINE PHOSPHATASE 179 U/L (46-116); ASPARTATE AMINO TRANSFERASE 17 U/L (15-37); BILIRUBIN,TOTAL 0.2 MG/DL (0.2-1.0)
[2017-09-16] MEDS ORDERED: LORazepam Inj 2mg/ml 1ml IV ONE (16:45)
[2017-09-16] MEDS ORDERED: Morphine Sulfate 4mg/ml Inj IVP ONE (16:45)
[2017-09-16] MEDS ORDERED: DiphenhydrAMINE 50mg/ml Inj IVP ONE (16:45)
[2017-09-16 17:06] VITALS: BP 158/100
[2017-09-16 17:30] VITALS: BP 103/74
--- NOTE | 2017-09-16 18:37 | Consultation ---
Consult Note Consult Note NEUROLOGY CONSULTATION CONSULTING PHYSICIAN: Chelly Antoine M.D. REQUESTING PHYSICIAN: Ernesto Magallon D.O. HISTORY: Ms. Naz Carmona is a 52-year-old, right-handed, black lady, who does have a past history of lumbosacral spine surgery with residual low back pain for which she has had a spinal stimulator placed. She also has had right lower extremity weakness, severe back and right lower extremity spasms for which she has been on various different antispasmodics over the years. 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 She was functioning relatively well until the end of August 2017 when she was walking and tripped over her long skirt because of her right footdrop. She fell on her right side and then had a lot of pain and spasms involving her right calf which then spread into the entire right lower extremity and back. As a result of severe pain and discomfort, she was hospitalized at [facility]. She was treated with antispasmodics and analgesics and improved. On 09/15/17 she went to see a Neurosurgeon at [facility] for possible surgical interventions. He told her that she was not a surgical candidate. Soon after that she developed worsening of her pain and spasms in the low back and right leg and became nonfunctional and as a result of that was brought to the [facility] and has since been admitted. She denies any new neurologic symptoms. She specifically denies any increased weakness on one side or the other, numbness on one side or the other, problems with speech, problems with language, problems with vision, or problems with her memory. PAST MEDICAL HISTORY: Significant for low back problems for which she has had lumbosacral spine surgery with residual low back pain for which she has a spinal stimulator, right lower extremity weakness following the operation numerous years ago, and back and right lower extremity spasms. 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 FAMILY HISTORY: Nothing significant with no family history of any neurological problems. PERSONAL HISTORY: Home: She lives at home with her . Work: She is unemployed. Habits: None. PHYSICAL EXAMINATION: GENERAL: She is a well-developed, well-nourished, pleasant, black lady, lying in bed, in no acute distress. VITAL SIGNS: Pulse 89 per minute, blood pressure 158/100 mmHg, respirations 14 per minute, and temperature 98.8 degrees Fahrenheit. HEAD: Normocephalic and atraumatic. EENT: Examination benign. NECK: No neck rigidity was observed. SPINE: Her lumbosacral spine revealed significant scarring from prior surgery and moderate spasm. NEUROLOGICAL EXAMINATION: MENTAL STATUS EXAMINATION: She was awake and alert. She was oriented to person, place, and time except for the exact date and month. She was able to recall 3/3 words immediately and could remember them in 1 and 3 minutes on the second trial. She was able to remember presidents Trump through Venegas senior with hints. Her mathematical skills were minimally impaired. Her visuospatial function was relatively good. SPEECH: She had no dysarthria. LANGUAGE: She had no aphasia. CRANIAL NERVE EXAMINATION: II: The visual montero were intact in the left eye. She had loss of vision with no light perception in the right eye. III, IV & : The external ocular movements were full in the left eye, but restricted in the right eye. The right pupil was 3 mm and did not react to light. The left pupil was 3 mm and reacted sluggishly to light. V: She had normal facial sensations and the temporales, masseters, and pterygoids function normally. VII: She had a right VII central facial paresis. VIII: She was able to hear well bilaterally and had no nystagmus. IX: The palate moved symmetrically on phonation. X: She had no hoarseness of voice. XI: The sternocleidomastoids and trapezii functioned normally. XII: The tongue was in the midline without any fasciculations or atrophy. MOTOR SYSTEM: The tone was normal in all four extremities. Examination of muscle mass revealed no focal wasting. Examination of power revealed G 5/5 power except for G 5-/5 power in the right finger extensors, G 4+/5 power in the right iliopsoas, and grade 0/5 power in the right ankle dorsiflexors and toe extensors. She exhibited give-way weakness on the right. SENSORY EXAMINATION: She had a subjective alteration to pinprick and light touch over her entire right body. REFLEXES: 1+ and bilaterally symmetrical at the biceps, triceps, and brachioradialis, 0 on the right, and 2+ on the left at the knees, 0 at both ankles. The plantar responses were flexor bilaterally. COORDINATION: She performed well on [id number] testing. She was unable to perform [id number] testing. STANCE & GAIT: Could not be tested as she was unable to try. ABNORMAL MOVEMENTS: She had a dystonic tremor involving the right upper extremity. DIAGNOSTIC IMPRESSION: 1. Ms. Naz Carmona is a 52-year-old, right-handed, black lady, who does have a past history of lumbosacral spine disease for which she has had extensive surgery with a failed back associated with chronic low back pain and spasms involving the right lower extremity for which she has had a spinal stimulator placed. 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 2. On 09/15/17 she went to see a Neurosurgeon at [facility] for possible surgical interventions. He told her that she was not a surgical candidate. Soon after that she developed worsening of her pain and spasms in the low back and right leg and became nonfunctional and as a result of that was brought to the [facility] and has since been admitted. 3. 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 4. The most likely etiology for the patient's low back pain and right lowerextremity pain and spasms would be her underlying spine pathology which has become more symptomatic. Her right hemiparesis and hemisensory deficit are unexplained. RECOMMENDATIONS: 1. Agree with management thus far. 2. Pain Management as per her pain management physician. 3. Continue Soma for muscle spasms. 4. Add Lidoderm patch for back pain. 5. The patient should be mobilized with the help of physical and occupational therapy. 6. Depending on how the patient fares over the next day or so, further recommendations will be given. Thank you for entrusting me with the care of Ms. Carmona. I shall follow her with you. hCelly Antoine M.D., M.S.P.H. CHELLY ANTOINE September 16, 2017 18:37
[2017-09-16] MEDS: DiphenhydrAMINE 50mg/ml Inj IVP PRN (20:53)
[2017-09-16] MEDS: Morphine Sulfate 4mg/ml Inj IVP PRN (20:53)
[2017-09-16 21:00] VITALS: BP 144/98
[2017-09-16] MEDS ORDERED: Heparin 5000 units/ml inj SUBQ SCH (21:00)
[2017-09-16] MEDS ORDERED: Zolpidem 5mg tab ORAL PRN (21:00)
[2017-09-16] MEDS ORDERED: Miralax 17gm pkt ORAL PRN (21:00)
[2017-09-16] MEDS ORDERED: HydrALAZINE 25mg tab ORAL PRN (21:48)
[2017-09-16] MEDS ORDERED: HYDROmorphone 4mg tab ORAL PRN (23:00)
[2017-09-16] MEDS: LORazepam Inj 2mg/ml 1ml IV PRN (23:31)
--- NOTE | 2017-09-17 | History and Physical Report ---
DATE OF ADMISSION: 09/16/2017 TIME: At 3 p.m. CONSULTANTS: 1. Adam Tom M.D. 2. Armani Singh M.D. 3. Harley Haines M.D. 4. Ellis Angeles M.D. 5. Amanda Crews M.D. CHIEF COMPLAINT: Right hip pain, leg pain, abdominal pain, and back pain. BRIEF HISTORY: This is a 52-year-old female with history of chronic pain and cauda equina syndrome, presented with increased pain in the back and abdomen area. No trauma was noted. She then developed tremors as well. The patient came to [place], diagnosed with above, and being admitted for further treatment. Currently, slightly anxious in bed, tremor in bilateral hands, severe pain 9/10. No complaint. PAST MEDICAL HISTORY: Hypertension, cauda equina syndrome, and chronic pain. PAST SURGICAL HISTORY: Back surgery. MEDICATIONS: Include Norvasc, Toprol, Xarelto, heparin, Soma, Klonopin, Neurontin, Zanaflex, Tylenol, MiraLAX, Zofran, and lorazepam. ALLERGIES: Include iron, methadone, morphine, and . SOCIAL HISTORY: Positive smoking. No alcohol. No intravenous drug abuse. FAMILY HISTORY: Noncontributory. REVIEW OF SYSTEMS: No chest pain. Slightly short of breath. Slight nausea. No vomiting or diarrhea. PHYSICAL EXAMINATION: GENERAL: Anxious in bed, oriented x3, in moderate distress secondary to pain. VITAL SIGNS: Temperature 97, pulse 84, respirations 22, and blood pressure 131/93. CARDIOVASCULAR: No murmurs. LUNGS: Distant and clear. ABDOMEN: Bowel sounds positive. Nontender. Nondistended. EXTREMITIES: No cyanosis, clubbing, or edema. NEUROLOGIC: The patient moves all extremities. Slight tremor in bilateral upper extremity. LABORATORY DATA: Laboratories are pending. ASSESSMENT: 1. Acute on chronic pain. 2. Cauda equina syndrome. 3. Tremor. 4. Hypertension. 5. Depression. PLAN: 1. Continue premeds. 2. OT, PT, and dietary evaluation. 3. CBC and BMP. 4. Dr. Tom, Dr. Singh, Dr. Haines, Dr. Angeles, and Dr. Rivas to consult. 5. We will continue to follow this patient medically. Ernesto Magallon D.O. DR: ANDREI JOB#: [id number] CC:
[2017-09-17] MEDS: Morphine Sulfate 4mg/ml Inj IVP PRN ×5 (01:03→19:50)
[2017-09-17] MEDS: DiphenhydrAMINE 50mg/ml Inj IVP PRN ×4 (03:33→19:49)
[2017-09-17 08:00] VITALS: BP 141/91
[2017-09-17] MEDS: Xarelto 10mg tab ORAL SCH (08:54)
[2017-09-17] MEDS: DULoxetine 30mg cap ORAL SCH (08:55)
[2017-09-17] MEDS: Metoprolol Succinate XL 50mg tab ORAL SCH (09:00)
--- NOTE | 2017-09-17 09:38 | General Progress Note ---
Assessment/Plan Assessment/Plan (1) Lumbar DDD (2) Lumbar spondylosis (4) Lumbar Herniated disc (5) Lumbar Radiculopathy (6) FBSS Patient to be continued on Morphine IV and Dilaudid. D/w Dr. Singh and he concurred. Subjective Date patient seen: September 17, 2017 Time patient seen: 08:00 - am Allergies: Coded Allergies: IRON (Verified Allergy, Unknown, Rash, 08/09/17) had nausea, vomiting and rashes METHADONE (Verified Allergy, Unknown, 06/04/17) MORPHINE (Verified Allergy, Unknown, 09/06/17) PREGABALIN (Verified Allergy, Unknown, 06/04/17) Subjective REVIEW OF SYSTEMS: Denies rash, fever, chills, sweating, dizziness, drowsiness, blurred vision, sore throat, or change in her weight. No shortness of breath or chest pain. No nausea, vomiting, diarrhea, or blood in stool or urine. No bowel or bladder incontinence. No dysuria. She is complaining of low back pain. SUBJECTIVE: Patient is a known patient from recent admission she had been discharge and consulted with a Neurosurgeon at [facility] however did not recommend any surgical intervention. After her visit started to have severe spasms in her back and weakness in her right leg. Due to this was admitted to the hospital at this time on Morphine 4mg IV due to hospital being out of stock of Dilaudid. She has allergy to Morphine and needs to take Benadryl IV. Started on Dilaudid 4mg PO 1 tab Q4H PRN severe breakthrough pain. Objective Last 24 Hour Vital Signs Date Time Temp Pulse Resp B/P (MAP) Pulse Ox O2 Delivery O2 Flow Rate FiO2 09/17/17 08:55 73 141/91 09/17/17 08:00 98.4 73 14 141/91 98 Room Air 98.4 09/16/17 21:00 98.4 74 24 144/98 99 Room Air 98.4 09/16/17 17:46 98.8 89 14 158/100 99 Room Air 208.2 09/16/17 17:30 98.6 100 18 103/74 98 Room Air 98.6 09/16/17 17:11 208.2 09/16/17 17:06 208.2 89 14 158/100 99 Room Air 208.2 09/16/17 16:49 97.9 09/16/17 16:00 97.9 85 21 171/100 99 Room Air 97.9 09/16/17 13:58 97.9 84 22 131/93 100 Room Air 97.9 09/16/17 13:33 97.9 92 24 157/143 100 Room Air 97.9 09/16/17 12:44 97.9 90 18 157/129 99 Room Air 97.9 Intake and Output 09/16/17 09/17/17 19:00 07:00 Intake Total 100 ml Balance 100 ml Intake Oral 100 ml # Voids 3 # Bowel Movements 1 Laboratory Tests 09/16/17 15:30: White Blood Count 5.5, Red Blood Count 3.88L, Hemoglobin 11.5L, Hematocrit 34.9L , Mean Corpuscular Volume 90, Mean Corpuscular Hemoglobin 29.6, Mean Corpuscular Hemoglobin Concent 33.0, Red Cell Distribution Width 13.5, Platelet Count 325, Mean Platelet Volume 5.1L, Neutrophils (%) (Auto) 59.3, Lymphocytes ( %) (Auto) 32.3, Monocytes (%) (Auto) 5.8, Eosinophils (%) (Auto) 1.2, Basophils (%) (Auto) 1.4, Sodium Level 141, Potassium Level 4.0, Chloride Level 105, Carbon Dioxide Level 25, Anion Gap 11, Blood Urea Nitrogen 18, Creatinine 0.6, Estimat Glomerular Filtration Rate > 60, Glucose Level 100, Calcium Level 9.0, Total Bilirubin 0.2, Aspartate Amino Transf (AST/SGOT) 17, Alanine Aminotransferase (ALT/SGPT) 21, Alkaline Phosphatase 179H, Total Protein 7.8, Albumin 3.7, Globulin 4.1, Albumin/Globulin Ratio 0.9L Height (Feet): 5 Height (Inches): 3.00 Weight (Pounds): 149 Objective GENERAL: Alert, awake, and oriented x3. HEENT: PERRLA on the left. On the right, prosthetic eye noted. NECK: Range of motion is full in all directions. LUNGS: Clear. HEART: Regular. ABDOMEN: Tenderness to palpation. BACK: Range of motion is decreased in flexion and extension with surgical scar noted. Tenderness to palpation. EXTREMITIES: Upper and lower extremity range of motion is decreased due to the patient's condition. No cyanosis. No clubbing. Sensory is reduced. Reflexes are not obtainable. No adenopathy. SUNITHA CASTILLO September 17, 2017 09:38
--- NOTE | 2017-09-17 10:41 | GI Initial Consult Note ---
History of Present Illness General Date patient seen: September 17, 2017 Time patient seen: 10:00 Reason for Hospitalization: General Complaint Referring physician: JUAN FRANCISCO OCAMPO Reason for Consultation: ABDOMINAL PAIN Present Illness HPI This patient has a history of chronic pain and requires high doses of narcotics. She also has arachnoiditis. She was recently discharged here from [facility] with uncontrolled pain. She continues to have uncontrolled pain. She has taken Dilaudid, morphine and muscle relaxants today prior to arrival without relief. She states she is very uncomfortable. She states that this has been ongoing and out of control. She denies new symptoms or complaints. She denies recent illness. She denies fever or chills. She has no other complaints. GI consulted for abdominal pain. Pt seen, awake and alert seen with uncontrolled tremors vs spasms. States she has generalized pain at this time and nothing has helped her. Labs show anemia and elevated alkaline phosphatase. Unknown history of endoscopy / colonoscopy. Home Meds Reported Medications Tizanidine Hcl* (ZANAFLEX*) 4 Mg Tablet, 4 MG ORAL THREE TIMES A DAY, #90 TAB 0 Refills 08/12/17 Lisinopril (LISINOPRIL*) 5 Mg Tablet, 10 MG ORAL DAILY, TAB 08/12/17 Hydralazine Hcl* (HYDRALAZINE HCL*) 25 Mg Tablet, 25 MG ORAL EVERY 4 HOURS PRN for PRN, TAB 0 Refills 08/12/17 Folic Acid* (FOLIC ACID*) 1 Mg Tablet, 2 MG ORAL DAILY, TAB 08/12/17 Diphenhydramine HCl (Benadryl) 25 Mg Capsule, 25 MG PO Q6HR, CAP 08/04/17 Lorazepam* (LORAZEPAM*) 1 Mg Tablet, 1 MG ORAL THREE TIMES A DAY, TAB 08/04/17 Carisoprodol* (SOMA*) 350 Mg Tablet, 350 MG PO TID, TAB 08/04/17 Dicyclomine Hcl (DICYCLOMINE HCL) 20 Mg Tablet, 20 MG PO FOUR TIMES A DAY, TAB 08/04/17 Losartan Potassium* (LOSARTAN POTASSIUM*) 50 Mg Tablet, 50 MG ORAL BID, TAB 08/04/17 Clonazepam* (KLONOPIN*) 1 Mg Tablet, 1 MG ORAL BID, #15 TAB 0 Refills 08/04/17 Baclofen* (LIORESAL*) 20 Mg Tablet, 20 MG ORAL EVERY 6 HOURS, TAB 08/04/17 Hyoscyamine Sulfate* (LEVSIN-SL*) 0.125 Mg Tab.subl, 0.125 MG SL, #20 TAB 0 Refills 08/04/17 Hydromorphone HCl (Dilaudid) 4 Mg Tablet, 4 MG ORAL EVERY 4 HOURS, #20 TAB 0 Refills 08/04/17 Hyoscyamine* (LEVSINEX*) 0.375 Mg Tab.er.12h, 0.125 MG ORAL EVERY 12 HOURS, #20 CAP 0 Refills 06/04/17 Losartan Potassium* (LOSARTAN POTASSIUM*) 50 Mg Tablet, 50 MG ORAL DAILY, TAB 06/04/17 Morphine Sulfate (MINE) 30 Mg Cap.er.pel, 30 MG PO, CAP 06/04/17 Rivaroxaban (XARELTO*) 10 Mg Tablet, 20 MG ORAL DAILY, #30 TAB 0 Refills 06/04/17 Amlodipine Besylate (Norvasc) 10 Mg Tablet, 10 MG ORAL DAILY, TAB 06/04/17 Gabapentin* (GABAPENTIN*) 300 Mg Capsule, 300 MG ORAL THREE TIMES A DAY, CAP 0 Refills 06/04/17 Metoprolol Succinate* (TOPROL XL*) 50 Mg Tab.er.24h, 50 MG ORAL DAILY, TAB 06/04/17 Omeprazole (OMEPRAZOLE) 20 Mg Capsule.dr, 20 MG ORAL DAILY, CAP 06/04/17 Baclofen* (LIORESAL*) 20 Mg Tablet, 20 MG ORAL THREE TIMES A DAY, TAB 06/04/17 Ropinirole Hcl* (REQUIP*) 1 Mg Tablet, 1 MG ORAL THREE TIMES A DAY, #90 TAB 0 Refills 06/04/17 Clonazepam* (KLONOPIN*) 1 Mg Tablet, 1 MG ORAL Q6H, #15 TAB 0 Refills 06/04/17 Hydromorphone Hcl (DILAUDID) 1 Mg/1 Ml Liquid, 4 MG PO, ML 06/04/17 Med list reviewed/reconciled: Yes Allergies: Coded Allergies: IRON (Verified Allergy, Unknown, Rash, 08/09/17) had nausea, vomiting and rashes METHADONE (Verified Allergy, Unknown, 06/04/17) MORPHINE (Verified Allergy, Unknown, 09/06/17) PREGABALIN (Verified Allergy, Unknown, 06/04/17) Patient History Limited by: medical condition History Provided By: Medical Record - f PMH Narrative Past Medical History: see triage record, HTN, other - chronic pain, opiod dependence, benzodiazepine dependence, Reviewed Nursing Documentation: PMH: Agreed; PSxH: Agreed Nursing Documentation-PM Past Medical History: No History, Except For Hx Cardiac Problems: Yes - intractable pain, muscle cramping, anemia Hx Hypertension: Yes Hx Cancer: No Hx Gastrointestinal Problems: Yes - GERD Hx Neurological Problems: Yes - Cauda Equina Syndrome, R/O lumbar arachnoiditis Hx Neurologic Surgery: Yes - 2010 Spinal surgery Review of Systems All Other Systems: negative except mentioned in HPI Physical Exam Vital Signs Date Time Temp Pulse Resp B/P (MAP) Pulse Ox O2 Delivery O2 Flow Rate FiO2 09/16/17 12:44 97.9 90 18 157/129 99 Room Air 97.9 Sp02 EP Interpretation: reviewed, normal Labs Laboratory Tests Test 09/16/17 15:30 White Blood Count 5.5 K/UL (4.8-10.8) Red Blood Count 3.88 M/UL (4.20-5.40) L Hemoglobin 11.5 G/DL (12.0-16.0) L Hematocrit 34.9 % (37.0-47.0) L Mean Corpuscular Volume 90 FL (80-99) Mean Corpuscular Hemoglobin 29.6 PG (27.0-31.0) Mean Corpuscular Hemoglobin Concent 33.0 G/DL (32.0-36.0) Red Cell Distribution Width 13.5 % (11.6-14.8) Platelet Count 325 K/UL (150-450) Mean Platelet Volume 5.1 FL (6.5-10.1) L Neutrophils (%) (Auto) 59.3 % (45.0-75.0) Lymphocytes (%) (Auto) 32.3 % (20.0-45.0) Monocytes (%) (Auto) 5.8 % (1.0-10.0) Eosinophils (%) (Auto) 1.2 % (0.0-3.0) Basophils (%) (Auto) 1.4 % (0.0-2.0) Sodium Level 141 MMOL/L (136-145) Potassium Level 4.0 MMOL/L (3.5-5.1) Chloride Level 105 MMOL/L (98-107) Carbon Dioxide Level 25 MMOL/L (21-32) Anion Gap 11 mmol/L (5-15) Blood Urea Nitrogen 18 mg/dL (7-18) Creatinine 0.6 MG/DL (0.55-1.30) Estimat Glomerular Filtration Rate > 60 mL/min (>60) Glucose Level 100 MG/DL (74-106) Calcium Level 9.0 MG/DL (8.5-10.1) Total Bilirubin 0.2 MG/DL (0.2-1.0) Aspartate Amino Transf (AST/SGOT) 17 U/L (15-37) Alanine Aminotransferase (ALT/SGPT) 21 U/L (12-78) Alkaline Phosphatase 179 U/L (46-116) H Total Protein 7.8 G/DL (6.4-8.2) Albumin 3.7 G/DL (3.4-5.0) Globulin 4.1 g/dL Albumin/Globulin Ratio 0.9 (1.0-2.7) L General Appearance: well appearing, no apparent distress, alert Head: normocephalic EENT: PERRL/EOMI, normal ENT inspection Neck: supple Respiratory: normal breath sounds, no respiratory distress Cardiovascular: normal rate Gastrointestinal: normal inspection, non tender, soft, normal bowel sounds, non -distended Rectal: deferred Genitourinary: no CVA tenderness Musculoskeletal: normal inspection, back normal Neurologic: normal inspection, alert, oriented x3, responsive Psychiatric: normal inspection, judgement/insight normal, memory normal Skin: normal inspection, normal color, no rash, warm/dry, palpation normal, well hydrated Lymphatic: normal inspection, no adenopathy Current Medications Current Medications Medications (Trade) Dose Ordered Sig/Danni Route PRN Reason Start Time Stop Time Status Last Admin Dose Admin Acetaminophen (Tylenol) 650 mg Q4H PRN ORAL fever 09/16/17 15:30 10/16/17 15:29 Al Hydroxide/Mg Hydroxide (Mylanta II) 30 ml Q6H PRN ORAL dyspepsia 09/16/17 15:30 10/16/17 15:29 Amlodipine Besylate (Norvasc) 10 mg DAILY ORAL 09/17/17 09:00 10/17/17 08:59 09/17/17 08:55 Carisoprodol (Soma) 350 mg TID ORAL 09/17/17 09:00 10/17/17 08:59 09/17/17 08:54 Clonazepam (KlonoPIN) 1 mg BID ORAL 09/17/17 09:00 09/24/17 08:59 09/17/17 08:55 Dextrose (Dextrose 50%) STAT PRN IV Hypoglycemia 09/16/17 15:30 10/16/17 15:29 Dextrose (Dextrose 50%) STAT PRN IV Hypoglycemia 09/16/17 16:15 10/16/17 16:14 Diphenhydramine HCl (Benadryl) 25 mg Q4H PRN IVP Itching 09/17/17 09:45 10/16/17 20:21 UNV Duloxetine HCl (Cymbalta) 30 mg DAILY ORAL 09/17/17 09:00 10/17/17 08:59 Gabapentin (Neurontin) 300 mg THREE TIMES A DAY ORAL 09/17/17 13:00 10/17/17 08:59 UNV Hydralazine HCl (Apresoline) 25 mg EVERY 4 HOURS PRN ORAL SBP>160 09/16/17 21:48 10/16/17 21:47 Hydromorphone HCl (Dilaudid) 4 mg Q4H PRN ORAL severe breakthrough pain 09/16/17 23:00 09/23/17 22:59 Lidocaine (Lidoderm 5% PATCH) 2 patch DAILY@2100 TDERMAL 09/16/17 21:00 10/16/17 20:59 09/16/17 21:07 Lorazepam (Ativan 2mg/ml 1ml) 0.5 mg Q4H PRN IV For Anxiety 09/16/17 15:30 09/23/17 15:29 09/16/17 23:31 Metoprolol Succinate (Toprol XL) 50 mg DAILY ORAL 09/17/17 09:00 10/17/17 08:59 Morphine Sulfate (Morphine Sulfate) 4 mg Q4H PRN IVP Severe Pain (Pain Scale 7-10) 09/16/17 15:35 09/23/17 15:34 09/17/17 10:25 Ondansetron HCl (Zofran) 4 mg Q6H PRN IVP Nausea & Vomiting 09/16/17 15:30 10/16/17 15:29 Polyethylene Glycol (Miralax) 17 gm HSPRN PRN ORAL Constipation 09/16/17 21:00 10/16/17 20:59 Rivaroxaban (Xarelto) 20 mg DAILY ORAL 09/17/17 09:00 10/17/17 08:59 09/17/17 08:54 Tizanidine HCl (Zanaflex) 4 mg THREE TIMES A DAY ORAL 09/17/17 09:00 10/17/17 08:59 09/17/17 08:56 Zolpidem Tartrate (Ambien) 5 mg HSPRN PRN ORAL Insomnia 09/16/17 21:00 09/23/17 20:59 GI: Plan Problems: (1) spasmodic severe pain (2) Muscle spasm (3) Opioid dependence (4) Hypoalbuminemia (5) abdominal pain (6) Anemia (7) High blood pressure Plan history of folate deficiency generalized pain and spasms symptomatic treatment pain mgmt Zofran prn Bentyl prn prn transfusions folate outpatient GI procedures Discussed with Dr. Haines. Thank you for this patient referral, we will follow. The patient was seen and examined at bedside and all new and available data was reviewed in the patients chart. I agree with the above findings, impression and plan. (Patient seen earlier today. Signature stamp does not reflect patient encounter time.). - MD Nata BooneTucson Medical CenterLayla EGG PACKER September 17, 2017 10:41
[2017-09-17 10:55] LABS: BASOPHILS % (AUTO) 0.8 % (0.0-2.0); EOSINOPHILS % (AUTO) 2.1 % (0.0-3.0); HEMATOCRIT 33.9 % (37.0-47.0); MEAN CORPUSCULAR VOLUME 91 FL (80-99); PLATELET COUNT 301 K/UL (150-450); RED BLOOD COUNT 3.71 M/UL (4.20-5.40); RED CELL DISTRIBUTION WIDTH 13.6 % (11.6-14.8); WHITE BLOOD COUNT 4.9 K/UL (4.8-10.8)
[2017-09-17 11:23] LABS: ALANINE AMINOTRANSFERASE 23 U/L (12-78); ALBUMIN 3.4 G/DL (3.4-5.0); ALBUMIN/GLOBULIN RATIO 0.9 (1.0-2.7); ALKALINE PHOSPHATASE 168 U/L (46-116); ANION GAP 8 mmol/L (5-15); ASPARTATE AMINO TRANSFERASE 17 U/L (15-37); BILIRUBIN,TOTAL 0.3 MG/DL (0.2-1.0); BLOOD UREA NITROGEN 17 mg/dL (7-18); CALCIUM 8.7 MG/DL (8.5-10.1); CARBON DIOXIDE 29 MMOL/L (21-32); CHLORIDE 107 MMOL/L (98-107); CREATININE 0.8 MG/DL (0.55-1.30); POTASSIUM 3.7 MMOL/L (3.5-5.1); SODIUM 144 MMOL/L (136-145)
--- NOTE | 2017-09-17 13:36 | General Progress Note ---
Assessment/Plan Problem List: (1) Muscle spasm ICD Codes: M62.838 - Other muscle spasm SNOMED: 40088498, 68048003 (2) spasmodic severe pain (3) HTN (hypertension) ICD Codes: I10 - Essential (primary) hypertension SNOMED: 40930097 (4) Chronic pain syndrome ICD Codes: G89.4 - Chronic pain syndrome SNOMED: 971453734 (5) Intractable back pain ICD Codes: M54.9 - Dorsalgia, unspecified SNOMED: 107265956 Status: unchanged Assessment/Plan ot pt diet pain control neuro f/u cbc bmp am Subjective Constitutional: Reports: weakness Allergies: Coded Allergies: IRON (Verified Allergy, Unknown, Rash, 08/09/17) had nausea, vomiting and rashes METHADONE (Verified Allergy, Unknown, 06/04/17) MORPHINE (Verified Allergy, Unknown, 09/06/17) PREGABALIN (Verified Allergy, Unknown, 06/04/17) All Systems: reviewed and negative except above Subjective c/o gen pain 11/16 Objective Last 24 Hour Vital Signs Date Time Temp Pulse Resp B/P (MAP) Pulse Ox O2 Delivery O2 Flow Rate FiO2 09/17/17 08:55 73 141/91 09/17/17 08:00 98.4 73 14 141/91 98 Room Air 98.4 09/16/17 21:00 98.4 74 24 144/98 99 Room Air 98.4 09/16/17 17:46 98.8 89 14 158/100 99 Room Air 208.2 09/16/17 17:30 98.6 100 18 103/74 98 Room Air 98.6 09/16/17 17:11 208.2 09/16/17 17:06 208.2 89 14 158/100 99 Room Air 208.2 09/16/17 16:49 97.9 09/16/17 16:00 97.9 85 21 171/100 99 Room Air 97.9 09/16/17 13:58 97.9 84 22 131/93 100 Room Air 97.9 Intake and Output 09/16/17 09/17/17 18:59 06:59 Intake Total 100 ml Balance 100 ml Intake Oral 100 ml # Voids 3 # Bowel Movements 1 Laboratory Tests 09/16/17 15:30: White Blood Count 5.5, Red Blood Count 3.88L, Hemoglobin 11.5L, Hematocrit 34.9L , Mean Corpuscular Volume 90, Mean Corpuscular Hemoglobin 29.6, Mean Corpuscular Hemoglobin Concent 33.0, Red Cell Distribution Width 13.5, Platelet Count 325, Mean Platelet Volume 5.1L, Neutrophils (%) (Auto) 59.3, Lymphocytes ( %) (Auto) 32.3, Monocytes (%) (Auto) 5.8, Eosinophils (%) (Auto) 1.2, Basophils (%) (Auto) 1.4, Sodium Level 141, Potassium Level 4.0, Chloride Level 105, Carbon Dioxide Level 25, Anion Gap 11, Blood Urea Nitrogen 18, Creatinine 0.6, Estimat Glomerular Filtration Rate > 60, Glucose Level 100, Calcium Level 9.0, Total Bilirubin 0.2, Aspartate Amino Transf (AST/SGOT) 17, Alanine Aminotransferase (ALT/SGPT) 21, Alkaline Phosphatase 179H, Total Protein 7.8, Albumin 3.7, Globulin 4.1, Albumin/Globulin Ratio 0.9L 09/17/17 09:00: White Blood Count 4.9, Red Blood Count 3.71L, Hemoglobin 11.0L, Hematocrit 33.9L , Mean Corpuscular Volume 91, Mean Corpuscular Hemoglobin 29.6, Mean Corpuscular Hemoglobin Concent 32.4, Red Cell Distribution Width 13.6, Platelet Count 301, Mean Platelet Volume 5.3L, Neutrophils (%) (Auto) 57.0, Lymphocytes ( %) (Auto) 33.0, Monocytes (%) (Auto) 7.0, Eosinophils (%) (Auto) 2.1, Basophils (%) (Auto) 0.8, Sodium Level 144, Potassium Level 3.7, Chloride Level 107, Carbon Dioxide Level 29, Anion Gap 8, Blood Urea Nitrogen 17, Creatinine 0.8, Estimat Glomerular Filtration Rate > 60, Glucose Level 80, Calcium Level 8.7, Total Bilirubin 0.3, Aspartate Amino Transf (AST/SGOT) 17, Alanine Aminotransferase (ALT/SGPT) 23, Alkaline Phosphatase 168H, Total Protein 7.1, Albumin 3.4, Globulin 3.7, Albumin/Globulin Ratio 0.9L, Thyroid Stimulating Hormone (TSH) 1.258 Height (Feet): 5 Height (Inches): 3.00 Weight (Pounds): 149 General Appearance: lethargic EENT: normal ENT inspection Neck: normal alignment Cardiovascular: normal peripheral pulses, normal rate, regular rhythm Respiratory/Chest: chest wall non-tender, lungs clear, normal breath sounds Abdomen: normal bowel sounds, non tender, soft Extremities: normal inspection Edema: no edema noted Arm (L), no edema noted Arm (R), no edema noted Leg (L), no edema noted Leg (R), no edema noted Pedal (L), no edema noted Pedal (R), no edema noted Generalized Neurologic: responsive, motor weakness Skin: normal pigmentation, warm/dry Ernesto Magallon DO September 17, 2017 13:36
[2017-09-17] MEDS: LORazepam Inj 2mg/ml 1ml IV PRN ×2 (14:11→18:49)
--- NOTE | 2017-09-17 14:35 | Neurology Progress Note ---
Interim History Interim History Interim History Ms. Carmona feels a little better today. The spasms are better and only in the low back. The right leg spasms have resolved. She is still unable to walk. The Lidoderm patches worked well. She denies any new neurologic symptoms. Her main problem is the "pain" that is not controlled. Review of Systems Neuro Review of Systems Benign. Objective Physical Exam Last Vital Signs Date Time Temp Pulse Resp B/P (MAP) Pulse Ox O2 Delivery O2 Flow Rate FiO2 09/17/17 08:55 73 141/91 09/17/17 08:00 98.4 14 98 Room Air 98.4 Laboratory Tests Test 09/16/17 15:30 09/17/17 09:00 White Blood Count 5.5 K/UL (4.8-10.8) 4.9 K/UL (4.8-10.8) Red Blood Count 3.88 M/UL (4.20-5.40) L 3.71 M/UL (4.20-5.40) L Hemoglobin 11.5 G/DL (12.0-16.0) L 11.0 G/DL (12.0-16.0) L Hematocrit 34.9 % (37.0-47.0) L 33.9 % (37.0-47.0) L Mean Corpuscular Volume 90 FL (80-99) 91 FL (80-99) Mean Corpuscular Hemoglobin 29.6 PG (27.0-31.0) 29.6 PG (27.0-31.0) Mean Corpuscular Hemoglobin Concent 33.0 G/DL (32.0-36.0) 32.4 G/DL (32.0-36.0) Red Cell Distribution Width 13.5 % (11.6-14.8) 13.6 % (11.6-14.8) Platelet Count 325 K/UL (150-450) 301 K/UL (150-450) Mean Platelet Volume 5.1 FL (6.5-10.1) L 5.3 FL (6.5-10.1) L Neutrophils (%) (Auto) 59.3 % (45.0-75.0) 57.0 % (45.0-75.0) Lymphocytes (%) (Auto) 32.3 % (20.0-45.0) 33.0 % (20.0-45.0) Monocytes (%) (Auto) 5.8 % (1.0-10.0) 7.0 % (1.0-10.0) Eosinophils (%) (Auto) 1.2 % (0.0-3.0) 2.1 % (0.0-3.0) Basophils (%) (Auto) 1.4 % (0.0-2.0) 0.8 % (0.0-2.0) Sodium Level 141 MMOL/L (136-145) 144 MMOL/L (136-145) Potassium Level 4.0 MMOL/L (3.5-5.1) 3.7 MMOL/L (3.5-5.1) Chloride Level 105 MMOL/L (98-107) 107 MMOL/L (98-107) Carbon Dioxide Level 25 MMOL/L (21-32) 29 MMOL/L (21-32) Anion Gap 11 mmol/L (5-15) 8 mmol/L (5-15) Blood Urea Nitrogen 18 mg/dL (7-18) 17 mg/dL (7-18) Creatinine 0.6 MG/DL (0.55-1.30) 0.8 MG/DL (0.55-1.30) Estimat Glomerular Filtration Rate > 60 mL/min (>60) > 60 mL/min (>60) Glucose Level 100 MG/DL (74-106) 80 MG/DL (74-106) Calcium Level 9.0 MG/DL (8.5-10.1) 8.7 MG/DL (8.5-10.1) Total Bilirubin 0.2 MG/DL (0.2-1.0) 0.3 MG/DL (0.2-1.0) Aspartate Amino Transf (AST/SGOT) 17 U/L (15-37) 17 U/L (15-37) Alanine Aminotransferase (ALT/SGPT) 21 U/L (12-78) 23 U/L (12-78) Alkaline Phosphatase 179 U/L (46-116) H 168 U/L (46-116) H Total Protein 7.8 G/DL (6.4-8.2) 7.1 G/DL (6.4-8.2) Albumin 3.7 G/DL (3.4-5.0) 3.4 G/DL (3.4-5.0) Globulin 4.1 g/dL 3.7 g/dL Albumin/Globulin Ratio 0.9 (1.0-2.7) L 0.9 (1.0-2.7) L Thyroid Stimulating Hormone (TSH) 1.258 uiU/mL (0.358-3.740) Neurologic Exam Objective PHYSICAL EXAMINATION: GENERAL: She is a well-developed, well-nourished, pleasant, black lady, lying in bed, in no acute distress. HEAD: Normocephalic and atraumatic. EENT: Examination benign. NECK: No neck rigidity was observed. SPINE: Her lumbosacral spine revealed significant scarring from prior surgery and moderate spasm. NEUROLOGICAL EXAMINATION: MENTAL STATUS EXAMINATION: She was awake and alert. She was oriented to person, place, and time. She was able to recall 3/3 words immediately and could remember them in 1 and 3 minutes. She was able to remember presidents Trump through Venegas senior with hints. Her mathematical skills were minimally impaired. Her visuospatial function was relatively good. SPEECH: She had no dysarthria. LANGUAGE: She had no aphasia. CRANIAL NERVE EXAMINATION: II: The visual montero were intact in the left eye. She had loss of vision with no light perception in the right eye. III, IV & : The external ocular movements were full in the left eye, but restricted in the right eye. The right pupil was 3 mm and did not react to light. The left pupil was 3 mm and reacted sluggishly to light. V: She had normal facial sensations and the temporales, masseters, and pterygoids function normally. VII: She had a right VII central facial paresis. VIII: She was able to hear well bilaterally and had no nystagmus. IX: The palate moved symmetrically on phonation. X: She had no hoarseness of voice. XI: The sternocleidomastoids and trapezii functioned normally. XII: The tongue was in the midline without any fasciculations or atrophy. MOTOR SYSTEM: The tone was normal in all four extremities. Examination of muscle mass revealed no focal wasting. Examination of power revealed G 5/5 power except for G 5-/5 power in the right finger extensors, G 4+/5 power in the right iliopsoas, and G 0/5 power in the right ankle dorsiflexors and toe extensors. She exhibited give-way weakness on the right. SENSORY EXAMINATION: She had a subjective alteration to pinprick and light touch over her entire right body. REFLEXES: 1+ and bilaterally symmetrical at the biceps, triceps, and brachioradialis, 0 on the right, and 2+ on the left at the knees, 0 at both ankles. The plantar responses were flexor bilaterally. COORDINATION: She performed well on [id number] testing. She was unable to perform zllu-aw-beic testing. STANCE & GAIT: Could not be tested as she was unable to try. ABNORMAL MOVEMENTS: She had a dystonic tremor involving the right upper extremity. Impression/Recommendations Diagnostic Impression 1. Ms. Naz Carmona is a 52-year-old, right-handed, black lady, who does have a past history of lumbosacral spine disease for which she has had extensive surgery with a failed back associated with chronic low back pain and spasms involving the right lower extremity for which she has had a spinal stimulator placed. 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 2. On 09/15/17 she went to see a Neurosurgeon at [facility] for possible surgical interventions. He told her that she was not a surgical candidate. Soon after that she developed worsening of her pain and spasms in the low back and right leg and became nonfunctional and as a result of that was brought to the [facility] and has since been admitted. 3. She feels a little better today. The spasms are better and only in the low back. The right leg spasms have resolved. She is still unable to walk. The Lidoderm patches worked well. She denies any new neurologic symptoms. Her main problem is the "pain" that is not controlled. 4. On neurological examination, at this time, she does demonstrate loss of vision in the right eye, and restricted eye movements in the right eye, a right VII central facial paresis, right-sided weakness with G 5/5 weakness in the finger extensors, G 4+/5 power in the iliopsoas, and G 0/5 power in the ankle dorsiflexors and toe extensors - with significant give way in the right lower extremity, a subjective alteration of sensation over entire right body, diminished deep tendon reflexes globally with loss of the right knee jerk and a right upper extremity dystonic tremor. 5. The most likely etiology for the patient's low back pain and spasms would be her underlying spine pathology which has become more symptomatic. Her right hemiparesis and hemisensory deficit are unexplained. Recommendations 1. Continue present management. 2. Pain Management as per pain management physician. 3. Continue Soma for muscle spasms. 4. Continue Lidoderm patch for back pain. 5. Mobilize with the help of physical and occupational therapy. 6. Observe closely. Chelly Antoine M.D., M.S.P.H. CHELLY ANTOINE September 17, 2017 14:35
[2017-09-17] MEDS ORDERED: Dicyclomine 10mg Cap ORAL PRN (15:15)
[2017-09-17 16:00] VITALS: BP 139/82
--- NOTE | 2017-09-17 16:15 | Consultation ---
DATE OF CONSULTATION: 09/17/2017 INITIAL PSYCHIATRIC CONSULTATION CONSULTING PHYSICIAN: Amanda Crews M.D. REQUESTING PHYSICIAN: Ernesto Magallon D.O. HISTORY OF PRESENT ILLNESS: This is a female patient. She has been admitted to the hospital at [facility] secondary to right hip pain, leg pain, abdominal pain, and back pain, but she had some increased haq in the abdominal area. She had tremor and she has history of neurologic condition, which causes lot of tremors and apparently, she has anxiety as well. She is very agitated, irritable, anxious with the staff. That is why, her attending has requested daily psychiatric consultation for this patient to be seen throughout hospital course. PAST MEDICAL HISTORY: She has history of cauda equina syndrome, which causes neurological problems. She has chronic pain. She has hypertension. ALLERGIES: To iron, methadone, and morphine. SOCIAL HISTORY: The patient currently lives in a private residence. Financially supported by [employer] and Medicare. SUBSTANCE ABUSE HISTORY: Denies drug or alcohol use psychiatric pain medications. PSYCHIATRIC HISTORY: Generalized anxiety disorder likely secondary to her neurologic condition. MENTAL STATUS EXAMINATION: A 52-year-old female. Appearance is disheveled. Attitude irritable, agitated. Affect guarded and restricted. Intellect poor. Mood depressed and anxious. Motor activity, psychomotor agitation. Attention span is poor. Orientation x2. Speech is pressured. Thought process, disorganized and illogical. Thought content, auditory hallucinations and paranoid delusions. Insight and judgment is poor. DIAGNOSIS: Generalized anxiety disorder. PLAN: The plan for this patient is to treat her with a psychotropic medication regimen. I am going to start her on Cymbalta 30 mg daily to reduce depression, anxiety and also provide pain prophylaxis, but also Neurontin will be increased to 400 mg 3 times a day. Continue Klonopin 1 mg 3 times a day, and encourage her to interact appropriately with the staff and other patients. A 20 minutes of supportive psychotherapy is provided. Chart reviewed and discussed with staff. Seen and assessed at bedside. I would like to thank, Dr. Ernesto Magallon, for this interesting consultation. Amanda Crews M.D. DR: MICHELLE JOB#: [id number] CC:
[2017-09-17] MEDS ORDERED: Dyna-Hex 2% Top Sol 2oz TOPIC SCH (20:00)
[2017-09-17 21:00] VITALS: BP 142/79
[2017-09-17] MEDS ORDERED: LORazepam Inj 2mg/ml 1ml IV SCH (22:15)
[2017-09-18] MEDS: Morphine Sulfate 4mg/ml Inj IVP PRN ×6 (00:13→21:18)
[2017-09-18] MEDS: DiphenhydrAMINE 50mg/ml Inj IVP PRN ×6 (00:13→21:18)
[2017-09-18] MEDS: LORazepam Inj 2mg/ml 1ml IVP PRN ×6 (01:41→23:31)
[2017-09-18 04:00] VITALS: BP 156/87
[2017-09-18 05:30] LABS: BASOPHILS % (AUTO) 0.8 % (0.0-2.0); EOSINOPHILS % (AUTO) 4.5 % (0.0-3.0); HEMATOCRIT 30.6 % (37.0-47.0); HEMOGLOBIN 10.1 G/DL (12.0-16.0); LYMPHOCYTES % (AUTO) 27.4 % (20.0-45.0); MEAN CORPUSCULAR VOLUME 91 FL (80-99); MONOCYTES % (AUTO) 12.5 % (1.0-10.0); NEUTROPHILS % (AUTO) 54.8 % (45.0-75.0); PLATELET COUNT 283 K/UL (150-450); RED BLOOD COUNT 3.36 M/UL (4.20-5.40); RED CELL DISTRIBUTION WIDTH 13.6 % (11.6-14.8); WHITE BLOOD COUNT 3.6 K/UL (4.8-10.8)
[2017-09-18 05:38] LABS: ANION GAP 6 mmol/L (5-15); BLOOD UREA NITROGEN 16 mg/dL (7-18); CALCIUM 8.5 MG/DL (8.5-10.1); CARBON DIOXIDE 28 MMOL/L (21-32); CHLORIDE 108 MMOL/L (98-107); CREATININE 0.8 MG/DL (0.55-1.30); POTASSIUM 4.1 MMOL/L (3.5-5.1); SODIUM 142 MMOL/L (136-145)
[2017-09-18 08:00] VITALS: BP 145/84
--- NOTE | 2017-09-18 08:23 | General Progress Note ---
Assessment/Plan Problem List: (1) Muscle spasm ICD Codes: M62.838 - Other muscle spasm SNOMED: 11381656, 69751564 (2) spasmodic severe pain (3) HTN (hypertension) ICD Codes: I10 - Essential (primary) hypertension SNOMED: 00463194 (4) Chronic pain syndrome ICD Codes: G89.4 - Chronic pain syndrome SNOMED: 343075191 (5) Intractable back pain ICD Codes: M54.9 - Dorsalgia, unspecified SNOMED: 225660662 Status: unchanged Assessment/Plan ot pt diet pain control neuro f/u cbc bmp am dc plan w hh Subjective Constitutional: Reports: weakness Allergies: Coded Allergies: IRON (Verified Allergy, Unknown, Rash, 08/09/17) had nausea, vomiting and rashes METHADONE (Verified Allergy, Unknown, 06/04/17) MORPHINE (Verified Allergy, Unknown, 09/06/17) PREGABALIN (Verified Allergy, Unknown, 06/04/17) All Systems: reviewed and negative except above Subjective sleepy calm Objective Last 24 Hour Vital Signs Date Time Temp Pulse Resp B/P (MAP) Pulse Ox O2 Delivery O2 Flow Rate FiO2 09/18/17 04:00 97.0 67 16 156/87 100 Room Air 97.0 09/17/17 21:00 Room Air 09/17/17 21:00 98.3 88 18 142/79 100 98.3 09/17/17 16:00 97.6 90 16 139/82 98 Room Air 97.6 09/17/17 08:55 73 141/91 Intake and Output 09/17/17 09/18/17 19:00 07:00 Intake Total 840 ml 720 ml Balance 840 ml 720 ml Intake Oral 840 ml 720 ml # Voids 2 3 # Bowel Movements 1 Laboratory Tests 09/17/17 09:00: White Blood Count 4.9, Red Blood Count 3.71L, Hemoglobin 11.0L, Hematocrit 33.9L , Mean Corpuscular Volume 91, Mean Corpuscular Hemoglobin 29.6, Mean Corpuscular Hemoglobin Concent 32.4, Red Cell Distribution Width 13.6, Platelet Count 301, Mean Platelet Volume 5.3L, Neutrophils (%) (Auto) 57.0, Lymphocytes ( %) (Auto) 33.0, Monocytes (%) (Auto) 7.0, Eosinophils (%) (Auto) 2.1, Basophils (%) (Auto) 0.8, Sodium Level 144, Potassium Level 3.7, Chloride Level 107, Carbon Dioxide Level 29, Anion Gap 8, Blood Urea Nitrogen 17, Creatinine 0.8, Estimat Glomerular Filtration Rate > 60, Glucose Level 80, Calcium Level 8.7, Total Bilirubin 0.3, Aspartate Amino Transf (AST/SGOT) 17, Alanine Aminotransferase (ALT/SGPT) 23, Alkaline Phosphatase 168H, Total Protein 7.1, Albumin 3.4, Globulin 3.7, Albumin/Globulin Ratio 0.9L, Thyroid Stimulating Hormone (TSH) 1.258 09/18/17 05:00: White Blood Count 3.6L, Red Blood Count 3.36L, Hemoglobin 10.1L, Hematocrit 30.6L, Mean Corpuscular Volume 91, Mean Corpuscular Hemoglobin 30.1, Mean Corpuscular Hemoglobin Concent 33.1, Red Cell Distribution Width 13.6, Platelet Count 283, Mean Platelet Volume 5.5L, Neutrophils (%) (Auto) 54.8, Lymphocytes ( %) (Auto) 27.4, Monocytes (%) (Auto) 12.5H, Eosinophils (%) (Auto) 4.5H, Basophils (%) (Auto) 0.8, Sodium Level 142, Potassium Level 4.1, Chloride Level 108H, Carbon Dioxide Level 28, Anion Gap 6, Blood Urea Nitrogen 16, Creatinine 0.8, Estimat Glomerular Filtration Rate > 60, Glucose Level 135H, Calcium Level 8.5 Height (Feet): 5 Height (Inches): 3.00 Weight (Pounds): 149 General Appearance: lethargic EENT: normal ENT inspection Neck: normal alignment Cardiovascular: normal peripheral pulses, normal rate, regular rhythm Respiratory/Chest: chest wall non-tender, lungs clear, normal breath sounds Abdomen: normal bowel sounds, non tender, soft Extremities: normal inspection Edema: no edema noted Arm (L), no edema noted Arm (R), no edema noted Leg (L), no edema noted Leg (R), no edema noted Pedal (L), no edema noted Pedal (R), no edema noted Generalized Neurologic: motor weakness Skin: normal pigmentation, warm/dry Ernesto Magallon DO September 18, 2017 08:23
[2017-09-18] MEDS: Xarelto 10mg tab ORAL SCH (08:57)
[2017-09-18] MEDS: Metoprolol Succinate XL 50mg tab ORAL SCH (09:00)
[2017-09-18] MEDS: DULoxetine 30mg cap ORAL SCH (09:00)
[2017-09-18 12:00] VITALS: BP 146/92
--- NOTE | 2017-09-18 13:59 | Neurology Progress Note ---
Interim History Interim History Interim History Ms. Carmona continues to be in a lot of pain. The pain is still predominantly in her low back. She says her entire back is in "spasm" however objectively mild spasm is noted in the LS spine only. The right leg spasms have resolved. She is unable to stand and walk due to the pain. She denies any new neurologic symptoms. Her main problem is that the "pain" that is not controlled. Review of Systems Neuro Review of Systems Benign. Objective Physical Exam Last Vital Signs Date Time Temp Pulse Resp B/P (MAP) Pulse Ox O2 Delivery O2 Flow Rate FiO2 09/18/17 12:00 98.2 71 20 146/92 97 Room Air 98.2 Laboratory Tests Test 09/18/17 05:00 White Blood Count 3.6 K/UL (4.8-10.8) L Red Blood Count 3.36 M/UL (4.20-5.40) L Hemoglobin 10.1 G/DL (12.0-16.0) L Hematocrit 30.6 % (37.0-47.0) L Mean Corpuscular Volume 91 FL (80-99) Mean Corpuscular Hemoglobin 30.1 PG (27.0-31.0) Mean Corpuscular Hemoglobin Concent 33.1 G/DL (32.0-36.0) Red Cell Distribution Width 13.6 % (11.6-14.8) Platelet Count 283 K/UL (150-450) Mean Platelet Volume 5.5 FL (6.5-10.1) L Neutrophils (%) (Auto) 54.8 % (45.0-75.0) Lymphocytes (%) (Auto) 27.4 % (20.0-45.0) Monocytes (%) (Auto) 12.5 % (1.0-10.0) H Eosinophils (%) (Auto) 4.5 % (0.0-3.0) H Basophils (%) (Auto) 0.8 % (0.0-2.0) Sodium Level 142 MMOL/L (136-145) Potassium Level 4.1 MMOL/L (3.5-5.1) Chloride Level 108 MMOL/L (98-107) H Carbon Dioxide Level 28 MMOL/L (21-32) Anion Gap 6 mmol/L (5-15) Blood Urea Nitrogen 16 mg/dL (7-18) Creatinine 0.8 MG/DL (0.55-1.30) Estimat Glomerular Filtration Rate > 60 mL/min (>60) Glucose Level 135 MG/DL (74-106) H Calcium Level 8.5 MG/DL (8.5-10.1) Neurologic Exam Objective PHYSICAL EXAMINATION: GENERAL: She is a well-developed, well-nourished, pleasant, black lady, lying in bed, in no acute distress. HEAD: Normocephalic and atraumatic. EENT: Examination benign. NECK: No neck rigidity was observed. SPINE: Her lumbosacral spine revealed significant scarring from prior surgery and mild spasm. NEUROLOGICAL EXAMINATION: MENTAL STATUS EXAMINATION: She was awake and alert. She was oriented to person, place, and time. She was able to recall 3/3 words immediately and could remember them in 1 and 3 minutes. She was able to remember presidents Trump through Venegas senior with hints. Her mathematical skills were minimally impaired. Her visuospatial function was relatively good. SPEECH: She had no dysarthria. LANGUAGE: She had no aphasia. CRANIAL NERVE EXAMINATION: II: The visual montero were intact in the left eye. She had loss of vision with no light perception in the right eye. III, IV & : The external ocular movements were full in the left eye, but restricted in the right eye. The right pupil was 3 mm and did not react to light. The left pupil was 3 mm and reacted sluggishly to light. V: She had normal facial sensations and the temporales, masseters, and pterygoids function normally. VII: She had a right VII central facial paresis. VIII: She was able to hear well bilaterally and had no nystagmus. IX: The palate moved symmetrically on phonation. X: She had no hoarseness of voice. XI: The sternocleidomastoids and trapezii functioned normally. XII: The tongue was in the midline without any fasciculations or atrophy. MOTOR SYSTEM: The tone was normal in all four extremities. Examination of muscle mass revealed no focal wasting. Examination of power revealed G 5/5 power except for G 5-/5 power in the right finger extensors, G 4+/5 power in the right iliopsoas, and G 0/5 power in the right ankle dorsiflexors and toe extensors. She exhibited give-way weakness on the right. SENSORY EXAMINATION: She had a subjective alteration to pinprick and light touch over her entire right body. REFLEXES: 1+ and bilaterally symmetrical at the biceps, triceps, and brachioradialis, 0 on the right, and 2+ on the left at the knees, 0 at both ankles. The plantar responses were flexor bilaterally. COORDINATION: She performed well on [id number] testing. She was unable to perform [id number]-tm-[id number] testing. STANCE & GAIT: Could not be tested as she was unable to try. ABNORMAL MOVEMENTS: She had a dystonic tremor involving the right upper extremity. Impression/Recommendations Status: unchanged Diagnostic Impression 1. Ms. Naz Carmona is a 52-year-old, right-handed, black lady, who does have a past history of lumbosacral spine disease for which she has had extensive surgery with a failed back associated with chronic low back pain and spasms involving the right lower extremity for which she has had a spinal stimulator placed. 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 2. On 09/15/17 she went to see a Neurosurgeon at [facility] for possible surgical interventions. He told her that she was not a surgical candidate. Soon after that she developed worsening of her pain and spasms in the low back and right leg and became nonfunctional and as a result of that was brought to the [facility] and has since been admitted. 3. She continues to be in a lot of pain. The pain is still predominantly in her low back. She says her entire back is in "spasm" however objectively mild spasm is noted in the LS spine only. The right leg spasms have resolved. She is unable to stand and walk due to the pain. She denies any new neurologic symptoms. Her main problem is that the "pain" that is not controlled. 4. On neurological examination, at this time, she does demonstrate loss of vision in the right eye, and restricted eye movements in the right eye, a right VII central facial paresis, right-sided weakness with G 5/5 weakness in the finger extensors, G 4+/5 power in the iliopsoas, and G 0/5 power in the ankle dorsiflexors and toe extensors - with significant give way in the right lower extremity, a subjective alteration of sensation over entire right body, diminished deep tendon reflexes globally with loss of the right knee jerk and a right upper extremity dystonic tremor. She dose have mild spasm in the LS spine. 5. The most likely etiology for the patient's low back pain and spasms would be her underlying spine pathology which has become more symptomatic. Her right hemiparesis and hemisensory deficit are unexplained. Recommendations 1. Continue present management. 2. Pain Management as per pain management physician. 3. Continue Soma for muscle spasms. 4. Continue Lidoderm patch for back pain. 5. Add Elavil 25 mg q HS for chronic spasm. 6. Mobilize with the help of physical and occupational therapy. 7. Observe closely. Chelly Antoine M.D., M.S.P.H. CHELLY ANTOINE September 18, 2017 13:59
--- NOTE | 2017-09-18 14:51 | Consultation ---
Consult Note Consult Note [id number] Enrico Michel MD September 18, 2017 14:51
[2017-09-18 16:04] VITALS: BP 127/72
[2017-09-18 20:00] VITALS: BP 128/78
[2017-09-18] MEDS: Dyna-Hex 2% Top Sol 2oz TOPIC SCH (20:00)
--- NOTE | 2017-09-18 22:00 | Consultation ---
DATE OF CONSULTATION: 09/18/2017 INFECTIOUS DISEASE CONSULTATION CONSULTING PHYSICIAN: Enrico Michel M.D. REFERRING PHYSICIAN: Ernesto Magallon D.O. REASON FOR CONSULTATION: Evaluation of the patient for abdominal pain, stool positive for VRE. HISTORY OF PRESENT ILLNESS: The patient is a 52-year-old female with multiple medical problems as listed below, who was admitted to this medical center due to chronic low back pain and abdominal pain. The patient was found also to have stool positive for VRE. Infectious Disease consultation has been requested for further evaluation of the patient and possible need for antibiotic treatment. PAST MEDICAL HISTORY: Significant for: 1. Chronic pain and cauda equina syndrome. 2. Hypertension. 3. History of back surgery. 4. History of hysterectomy. ALLERGIES: No allergies to antibiotics. MEDICATIONS: Off of antibiotics. SOCIAL HISTORY: Significant for smoking. FAMILY HISTORY: Not contributing. REVIEW OF SYSTEMS: HEENT: No recent change in vision or hearing. PULMONARY: No cough. CARDIOVASCULAR: No chest pain or palpitations. GASTROINTESTINAL/ABDOMEN: As mentioned. GENITOURINARY: No dysuria. MUSCULOSKELETAL: As mentioned above. PHYSICAL EXAMINATION: VITAL SIGNS: Temperature 98, pulse 86, respiratory rate 18, and blood pressure 142/92. HEENT: No pale conjunctivae. No icterus. NECK: No lymphadenopathy. CHEST: Clear. HEART: S1, S2. ABDOMEN: Soft. EXTREMITIES: No cyanosis at this time. NEUROLOGIC: Awake. LABORATORY DATA: Labs, white blood cells 3.6, hemoglobin 10, and platelets 283. BUN 16, creatinine 0.8. Liver functions, AST and ALT are unremarkable and alkaline phosphatase 168. ASSESSMENT: 1. The patient is a 52-year-old female with multiple medical problems as listed above, who has also abdominal pain due to radiation of low back pain. 2. VRE colonization. PLAN: 1. We will monitor the patient off of antibiotics. 2. the hospitalization. 3. Monitor CBC. 4. Monitor BMP. 5. Pain management as per primary care team. Enrico Michel M.D. DR: ABISAI JOB#: [id number] CC:
--- NOTE | 2017-09-18 22:10 | Consultation ---
History of Present Illness General Date patient seen: September 18, 2017 Chief Complaint: General Complaint Referring physician: JUAN FRANCISCO OCAMPO Reason for Consultation: ABDOMINAL PAIN Present Illness HPI 52 year old female with a history of chronic pain and requires high doses of narcotics presented with uncontrolled pain. She has taken Dilaudid, morphine and muscle relaxants today prior to arrival without relief. She states she is very uncomfortable. She states that this has been ongoing and out of control. She denies new symptoms or complaints. She denies recent illness. She is admitted for intractable pain. Allergies: Coded Allergies: IRON (Verified Allergy, Unknown, Rash, 08/09/17) had nausea, vomiting and rashes METHADONE (Verified Allergy, Unknown, 06/04/17) MORPHINE (Verified Allergy, Unknown, 09/06/17) PREGABALIN (Verified Allergy, Unknown, 06/04/17) Medication History Scheduled Amlodipine Besylate (Norvasc), 10 MG ORAL DAILY, (Reported) Baclofen* (Lioresal*), 20 MG ORAL THREE TIMES A DAY, (Reported) Baclofen* (Lioresal*), 20 MG ORAL EVERY 6 HOURS, (Reported) Carisoprodol* (Soma*), 350 MG PO TID, (Reported) Clonazepam* (Klonopin*), 1 MG ORAL Q6H, (Reported) Clonazepam* (Klonopin*), 1 MG ORAL BID, (Reported) Dicyclomine Hcl (Dicyclomine Hcl), 20 MG PO FOUR TIMES A DAY, (Reported) Diphenhydramine HCl (Benadryl), 25 MG PO Q6HR, (Reported) Folic Acid* (Folic Acid*), 2 MG ORAL DAILY, (Reported) Gabapentin* (Gabapentin*), 300 MG ORAL THREE TIMES A DAY, (Reported) Hydromorphone HCl (Dilaudid), 4 MG ORAL EVERY 4 HOURS, (Reported) Hyoscyamine* (Levsinex*), 0.125 MG ORAL EVERY 12 HOURS, (Reported) Lisinopril (Lisinopril*), 10 MG ORAL DAILY, (Reported) Lorazepam* (Lorazepam*), 1 MG ORAL THREE TIMES A DAY, (Reported) Losartan Potassium* (Losartan Potassium*), 50 MG ORAL DAILY, (Reported) Losartan Potassium* (Losartan Potassium*), 50 MG ORAL BID, (Reported) Metoprolol Succinate* (Toprol Xl*), 50 MG ORAL DAILY, (Reported) Omeprazole (Omeprazole), 20 MG ORAL DAILY, (Reported) Rivaroxaban (Xarelto*), 20 MG ORAL DAILY, (Reported) Ropinirole Hcl* (Requip*), 1 MG ORAL THREE TIMES A DAY, (Reported) Tizanidine Hcl* (Zanaflex*), 4 MG ORAL THREE TIMES A DAY, (Reported) Scheduled PRN Hydralazine Hcl* (Hydralazine Hcl*), 25 MG ORAL EVERY 4 HOURS PRN for PRN, ( Reported) Miscellaneous Medications Hydromorphone Hcl (Dilaudid), 4 MG PO, (Reported) Hyoscyamine Sulfate* (Levsin-Sl*), 0.125 MG SL, (Reported) Morphine Sulfate (Rosanne), 30 MG PO, (Reported) Patient History Healthcare decision maker N Resuscitation status Full Code Advanced Directive on File Past Medical/Surgical History Past Medical/Surgical History: (1) pain (2) Benzodiazepine dependence (3) Anemia (4) HTN (hypertension) Review of Systems All Other Systems: negative except mentioned in HPI Physical Exam General Appearance: WD/WN Lines, tubes and drains: peripheral HEENT: normocephalic, anicteric Neck: non-tender, supple Respiratory/Chest: chest wall non-tender, lungs clear Breasts: no masses Cardiovascular/Chest: normal peripheral pulses Abdomen: normal bowel sounds, non tender Genitourinary/Rectal: normal genital exam Extremities: normal range of motion Skin Exam: normal pigmentation Last 24 Hour Vital Signs Date Time Temp Pulse Resp B/P (MAP) Pulse Ox O2 Delivery O2 Flow Rate FiO2 09/18/17 20:00 98.3 66 20 128/78 96 98.3 09/18/17 16:04 98.4 68 21 127/72 97 Room Air 98.4 09/18/17 12:00 98.2 71 20 146/92 97 Room Air 98.2 09/18/17 09:00 57 145/84 09/18/17 08:58 57 145/84 09/18/17 08:00 97.6 57 20 145/84 98 Room Air 97.6 09/18/17 04:00 97.0 67 16 156/87 100 Room Air 97.0 Intake and Output 09/17/17 09/18/17 19:00 07:00 Intake Total 840 ml 720 ml Balance 840 ml 720 ml Intake Oral 840 ml 720 ml # Voids 2 3 # Bowel Movements 1 Laboratory Tests Test 09/18/17 05:00 White Blood Count 3.6 K/UL (4.8-10.8) L Red Blood Count 3.36 M/UL (4.20-5.40) L Hemoglobin 10.1 G/DL (12.0-16.0) L Hematocrit 30.6 % (37.0-47.0) L Mean Corpuscular Volume 91 FL (80-99) Mean Corpuscular Hemoglobin 30.1 PG (27.0-31.0) Mean Corpuscular Hemoglobin Concent 33.1 G/DL (32.0-36.0) Red Cell Distribution Width 13.6 % (11.6-14.8) Platelet Count 283 K/UL (150-450) Mean Platelet Volume 5.5 FL (6.5-10.1) L Neutrophils (%) (Auto) 54.8 % (45.0-75.0) Lymphocytes (%) (Auto) 27.4 % (20.0-45.0) Monocytes (%) (Auto) 12.5 % (1.0-10.0) H Eosinophils (%) (Auto) 4.5 % (0.0-3.0) H Basophils (%) (Auto) 0.8 % (0.0-2.0) Sodium Level 142 MMOL/L (136-145) Potassium Level 4.1 MMOL/L (3.5-5.1) Chloride Level 108 MMOL/L (98-107) H Carbon Dioxide Level 28 MMOL/L (21-32) Anion Gap 6 mmol/L (5-15) Blood Urea Nitrogen 16 mg/dL (7-18) Creatinine 0.8 MG/DL (0.55-1.30) Estimat Glomerular Filtration Rate > 60 mL/min (>60) Glucose Level 135 MG/DL (74-106) H Calcium Level 8.5 MG/DL (8.5-10.1) Height (Feet): 5 Height (Inches): 3.00 Weight (Pounds): 149 Medications Current Medications Medications (Trade) Dose Ordered Sig/Danni Route PRN Reason Start Time Stop Time Status Last Admin Dose Admin Acetaminophen (Tylenol) 650 mg Q4H PRN ORAL fever 09/16/17 15:30 10/16/17 15:29 Al Hydroxide/Mg Hydroxide (Mylanta II) 30 ml Q6H PRN ORAL dyspepsia 09/16/17 15:30 10/16/17 15:29 Amitriptyline HCl (Elavil) 25 mg BEDTIME ORAL 09/18/17 21:00 10/17/17 20:59 09/18/17 21:18 Amlodipine Besylate (Norvasc) 10 mg DAILY ORAL 09/19/17 09:00 10/17/17 08:59 Carisoprodol (Soma) 350 mg TID ORAL 09/18/17 14:00 10/17/17 13:59 09/18/17 18:30 Chlorhexidine Gluconate (Margot-Hex 2%) 1 applic DAILY@2000 TOPIC 09/18/17 20:00 10/17/17 19:59 Clonazepam (KlonoPIN) 1 mg BID ORAL 09/18/17 18:00 09/24/17 17:59 09/18/17 18:30 Dextrose (Dextrose 50%) STAT PRN IV Hypoglycemia 09/16/17 15:30 10/16/17 15:29 Dextrose (Dextrose 50%) STAT PRN IV Hypoglycemia 09/16/17 16:15 10/16/17 16:14 Dicyclomine HCl (Bentyl) 10 mg Q6H PRN ORAL Abdominal cramps 09/17/17 15:15 10/17/17 15:14 Diphenhydramine HCl (Benadryl) 25 mg Q4H PRN IVP Itching 09/17/17 11:00 10/16/17 10:59 09/18/17 21:18 Duloxetine HCl (Cymbalta) 30 mg DAILY ORAL 09/19/17 09:00 10/17/17 08:59 Gabapentin (Neurontin) 300 mg TID ORAL 09/18/17 14:00 10/18/17 13:59 09/18/17 18:30 Hydralazine HCl (Apresoline) 25 mg EVERY 4 HOURS PRN ORAL SBP>160 09/16/17 21:48 10/16/17 21:47 Hydromorphone HCl (Dilaudid) 4 mg Q4H PRN ORAL severe breakthrough pain 09/16/17 23:00 09/23/17 22:59 Lidocaine (Lidoderm 5% PATCH) 2 patch DAILY@2100 TDERMAL 09/18/17 21:00 10/16/17 20:59 09/18/17 21:20 Lorazepam (Ativan 2mg/ml 1ml) 1 mg Q3HR PRN IVP For Anxiety 09/17/17 22:15 09/24/17 22:14 09/18/17 17:50 Metoprolol Succinate (Toprol XL) 50 mg DAILY ORAL 09/19/17 09:00 10/17/17 08:59 Morphine Sulfate (Morphine Sulfate) 4 mg Q4H PRN IVP Severe Pain (Pain Scale 7-10) 09/16/17 15:35 09/23/17 15:34 09/18/17 21:18 Ondansetron HCl (Zofran) 4 mg Q6H PRN IVP Nausea & Vomiting 09/16/17 15:30 10/16/17 15:29 Polyethylene Glycol (Miralax) 17 gm HSPRN PRN ORAL Constipation 09/16/17 21:00 10/16/17 20:59 Rivaroxaban (Xarelto) 20 mg DAILY ORAL 09/19/17 09:00 10/17/17 08:59 Tizanidine HCl (Zanaflex) 4 mg THREE TIMES A DAY ORAL 09/18/17 14:00 10/17/17 13:59 09/18/17 18:30 Zolpidem Tartrate (Ambien) 5 mg HSPRN PRN ORAL Insomnia 09/16/17 21:00 09/23/17 20:59 Assessment/Plan Problem List: (1) Intractable back pain ICD Codes: M54.9 - Dorsalgia, unspecified SNOMED: 552757576 (2) HTN (hypertension) ICD Codes: I10 - Essential (primary) hypertension SNOMED: 52296607 (3) Muscle spasm ICD Codes: M62.838 - Other muscle spasm SNOMED: 38119087, 71360553 (4) Chronic pain syndrome ICD Codes: G89.4 - Chronic pain syndrome SNOMED: 028393010 (5) Opioid dependence ICD Codes: F11.20 - Opioid dependence, uncomplicated SNOMED: 19677908 Assessment/Plan analgesics pain specialist monitor BP psych evaluation. check electrolytes Adam Tom MD September 18, 2017 22:10
[2017-09-19] VITALS: BP 126/76
--- NOTE | 2017-09-19 | Progress Note ---
DATE: 09/18/2017 HISTORY OF PRESENT ILLNESS: The patient is a 52-year-old female patient with intractable back pain. She experiencing. She is very irritable and agitated, even though . She needs to be still very agitated and irritable with staff and that is why, at this time. MENTAL STATUS EXAMINATION: The patient is a 52-year-old female. Appearance is disheveled. Attitude irritable and agitated. Affect guarded and restricted. Intellect poor. Mood depressed and anxious. Motor activity, psychomotor agitation. Attention span is poor. Orientation x2. Speech is pressured. Thought process, disorganized and illogical. Thought content, auditory hallucinations and . The patient does have paranoid delusions. Insight and judgment is poor. DIAGNOSIS: Generalized anxiety, rule out major depression , mild, recurrent, without psychotic features. PLAN: Treat her with Neurontin 200 mg 3 times a day, , Cymbalta 30 mg daily. 18 to 20 minutes of supportive psychotherapy provided. Chart reviewed and discussed with staff. Amanda Crews M.D. DR: MICHELLE JOB#: [id number] CC:
[2017-09-19] MEDS: DiphenhydrAMINE 50mg/ml Inj IVP PRN ×6 (02:20→23:14)
[2017-09-19] MEDS: Morphine Sulfate 4mg/ml Inj IVP PRN ×6 (02:21→23:14)
[2017-09-19 04:00] VITALS: BP 117/73
[2017-09-19 08:00] VITALS: BP 132/90
[2017-09-19 08:06] LABS: BASOPHILS % (AUTO) 1.1 % (0.0-2.0); EOSINOPHILS % (AUTO) 3.1 % (0.0-3.0); HEMATOCRIT 34.6 % (37.0-47.0); HEMOGLOBIN 11.3 G/DL (12.0-16.0); LYMPHOCYTES % (AUTO) 36.7 % (20.0-45.0); MEAN CORPUSCULAR VOLUME 91 FL (80-99); MONOCYTES % (AUTO) 6.6 % (1.0-10.0); NEUTROPHILS % (AUTO) 52.4 % (45.0-75.0); PLATELET COUNT 293 K/UL (150-450); RED BLOOD COUNT 3.79 M/UL (4.20-5.40); RED CELL DISTRIBUTION WIDTH 13.5 % (11.6-14.8); WHITE BLOOD COUNT 5.1 K/UL (4.8-10.8)
--- NOTE | 2017-09-19 08:15 | Progress Note ---
DATE: 09/19/2017 SUBJECTIVE: The patient is a 52-year-old female patient with intractable back pain, still very mood labile, agitated, and irritable. MENTAL STATUS EXAMINATION: A 52-year-old female. Appearance is disheveled. Attitude, irritable and agitated. Thought process, disorganized. Thought content, auditory hallucinations and paranoid. Denies suicidal or homicidal thoughts. Insight and judgment is poor. DIAGNOSIS: Generalized anxiety disorder, rule out major depressive disorder, severe, recurrent. PLAN: Plan is to treat her with Neurontin 400 mg three times a day, Cymbalta 30 mg daily, and Klonopin 1 mg two times a day. Provided 18 to 20 minutes of supportive psychotherapy. Amanda Crews M.D. DR: YEFRI JOB#: [id number] CC:
[2017-09-19] MEDS: Metoprolol Succinate XL 50mg tab ORAL SCH (08:17)
[2017-09-19] MEDS: LORazepam Inj 2mg/ml 1ml IVP PRN ×4 (08:18→18:02)
[2017-09-19] MEDS: DULoxetine 30mg cap ORAL SCH (08:18)
[2017-09-19] MEDS: Xarelto 10mg tab ORAL SCH (08:18)
[2017-09-19 08:19] LABS: ANION GAP 8 mmol/L (5-15); BLOOD UREA NITROGEN 19 mg/dL (7-18); CALCIUM 9.1 MG/DL (8.5-10.1); CARBON DIOXIDE 29 MMOL/L (21-32); CHLORIDE 106 MMOL/L (98-107); CREATININE 0.9 MG/DL (0.55-1.30); POTASSIUM 3.8 MMOL/L (3.5-5.1); SODIUM 143 MMOL/L (136-145)
--- NOTE | 2017-09-19 08:39 | General Progress Note ---
Assessment/Plan Problem List: (1) Muscle spasm ICD Codes: M62.838 - Other muscle spasm SNOMED: 51465349, 90023348 (2) spasmodic severe pain (3) HTN (hypertension) ICD Codes: I10 - Essential (primary) hypertension SNOMED: 50604765 (4) Chronic pain syndrome ICD Codes: G89.4 - Chronic pain syndrome SNOMED: 629987860 (5) Intractable back pain ICD Codes: M54.9 - Dorsalgia, unspecified SNOMED: 496295224 Status: unchanged Assessment/Plan ot pt diet pain control neuro f/u cbc bmp am dc plan w hh Subjective Constitutional: Reports: weakness Allergies: Coded Allergies: IRON (Verified Allergy, Unknown, Rash, 08/09/17) had nausea, vomiting and rashes METHADONE (Verified Allergy, Unknown, 06/04/17) MORPHINE (Verified Allergy, Unknown, 09/06/17) PREGABALIN (Verified Allergy, Unknown, 06/04/17) All Systems: reviewed and negative except above Subjective achy all over Objective Last 24 Hour Vital Signs Date Time Temp Pulse Resp B/P (MAP) Pulse Ox O2 Delivery O2 Flow Rate FiO2 09/19/17 08:17 71 117/73 09/19/17 08:17 98.2 09/19/17 08:16 98.2 09/19/17 08:16 71 117/73 09/19/17 08:00 97.5 80 22 132/90 99 Room Air 97.5 09/19/17 04:00 98.2 71 20 117/73 98 98.2 09/19/17 00:00 98.3 65 20 126/76 98 98.3 09/18/17 20:00 98.3 66 20 128/78 96 98.3 09/18/17 16:04 98.4 68 21 127/72 97 Room Air 98.4 09/18/17 12:00 98.2 71 20 146/92 97 Room Air 98.2 09/18/17 09:00 57 145/84 09/18/17 08:58 57 145/84 Intake and Output 09/18/17 09/19/17 19:00 07:00 Intake Total 480 ml 420 ml Balance 480 ml 420 ml Intake Oral 480 ml 420 ml Laboratory Tests 09/19/17 06:45: White Blood Count 5.1, Red Blood Count 3.79L, Hemoglobin 11.3L, Hematocrit 34.6L , Mean Corpuscular Volume 91, Mean Corpuscular Hemoglobin 29.9, Mean Corpuscular Hemoglobin Concent 32.8, Red Cell Distribution Width 13.5, Platelet Count 293, Mean Platelet Volume 5.3L, Neutrophils (%) (Auto) 52.4, Lymphocytes ( %) (Auto) 36.7, Monocytes (%) (Auto) 6.6, Eosinophils (%) (Auto) 3.1H, Basophils (%) (Auto) 1.1, Sodium Level 143, Potassium Level 3.8, Chloride Level 106, Carbon Dioxide Level 29, Anion Gap 8, Blood Urea Nitrogen 19H, Creatinine 0.9, Estimat Glomerular Filtration Rate > 60, Glucose Level 114H, Calcium Level 9.1 Height (Feet): 5 Height (Inches): 3.00 Weight (Pounds): 149 General Appearance: lethargic EENT: normal ENT inspection Neck: normal alignment Cardiovascular: normal peripheral pulses, normal rate, regular rhythm Respiratory/Chest: chest wall non-tender, lungs clear, normal breath sounds Abdomen: normal bowel sounds, non tender, soft Extremities: normal inspection Edema: no edema noted Arm (L), no edema noted Arm (R), no edema noted Leg (L), no edema noted Leg (R), no edema noted Pedal (L), no edema noted Pedal (R), no edema noted Generalized Neurologic: responsive, motor weakness Skin: normal pigmentation, warm/dry Ernesto MagallonGertrudis September 19, 2017 08:39
--- NOTE | 2017-09-19 10:44 | General Progress Note ---
Assessment/Plan Assessment/Plan (1) Lumbar DDD (2) Lumbar spondylosis (4) Lumbar Herniated disc (5) Lumbar Radiculopathy (6) FBSS Patient to be continued on Ativan, Morphine IV and Dilaudid. D/w Dr. Singh and he concurred. Subjective Date patient seen: September 19, 2017 Time patient seen: 10:15 - am Allergies: Coded Allergies: IRON (Verified Allergy, Unknown, Rash, 08/09/17) had nausea, vomiting and rashes METHADONE (Verified Allergy, Unknown, 06/04/17) MORPHINE (Verified Allergy, Unknown, 09/06/17) PREGABALIN (Verified Allergy, Unknown, 06/04/17) Subjective REVIEW OF SYSTEMS: Denies rash, fever, chills, sweating, dizziness, drowsiness, blurred vision, sore throat, or change in her weight. No shortness of breath or chest pain. No nausea, vomiting, diarrhea, or blood in stool or urine. No bowel or bladder incontinence. No dysuria. She is complaining of low back pain. SUBJECTIVE: Patient has been c/o severe pain and spasms. Started on Ativan 1mg Q3H PRN which has helped reduce her spasms. Objective Last 24 Hour Vital Signs Date Time Temp Pulse Resp B/P (MAP) Pulse Ox O2 Delivery O2 Flow Rate FiO2 09/19/17 10:41 98.2 09/19/17 09:15 98.2 09/19/17 09:15 98.2 09/19/17 08:17 71 117/73 09/19/17 08:17 98.2 09/19/17 08:16 98.2 09/19/17 08:16 71 117/73 09/19/17 08:00 97.5 80 22 132/90 99 Room Air 97.5 09/19/17 04:00 98.2 71 20 117/73 98 98.2 09/19/17 00:00 98.3 65 20 126/76 98 98.3 09/18/17 20:00 98.3 66 20 128/78 96 98.3 09/18/17 16:04 98.4 68 21 127/72 97 Room Air 98.4 09/18/17 12:00 98.2 71 20 146/92 97 Room Air 98.2 Intake and Output 09/18/17 09/19/17 19:00 07:00 Intake Total 480 ml 420 ml Balance 480 ml 420 ml Intake Oral 480 ml 420 ml Laboratory Tests 09/19/17 06:45: White Blood Count 5.1, Red Blood Count 3.79L, Hemoglobin 11.3L, Hematocrit 34.6L , Mean Corpuscular Volume 91, Mean Corpuscular Hemoglobin 29.9, Mean Corpuscular Hemoglobin Concent 32.8, Red Cell Distribution Width 13.5, Platelet Count 293, Mean Platelet Volume 5.3L, Neutrophils (%) (Auto) 52.4, Lymphocytes ( %) (Auto) 36.7, Monocytes (%) (Auto) 6.6, Eosinophils (%) (Auto) 3.1H, Basophils (%) (Auto) 1.1, Sodium Level 143, Potassium Level 3.8, Chloride Level 106, Carbon Dioxide Level 29, Anion Gap 8, Blood Urea Nitrogen 19H, Creatinine 0.9, Estimat Glomerular Filtration Rate > 60, Glucose Level 114H, Calcium Level 9.1 Height (Feet): 5 Height (Inches): 3.00 Weight (Pounds): 149 Objective GENERAL: Alert, awake, and oriented x3. HEENT: PERRLA on the left. On the right, prosthetic eye noted. NECK: Range of motion is full in all directions. LUNGS: Clear. HEART: Regular. ABDOMEN: Tenderness to palpation. BACK: Range of motion is decreased in flexion and extension with surgical scar noted. Tenderness to palpation. EXTREMITIES: Upper and lower extremity range of motion is decreased due to the patient's condition. No cyanosis. No clubbing. Sensory is reduced. Reflexes are not obtainable. No adenopathy. SUNITHA CASTILLO September 19, 2017 10:44
--- NOTE | 2017-09-19 11:23 | Neurology Progress Note ---
Interim History Interim History Interim History Ms. Carmona feels much better today. The last time she had a spasm was last night - it was only in her low back and lasted ~ 15 minutes. The pain in her low back is much better. She feels that the Lidoderm patches have helped. She tolerated the Elavil well. The right leg spasms have completely resolved. She denies any new neurologic symptoms. The pain is better controlled. Review of Systems Neuro Review of Systems Benign. Objective Physical Exam Last Vital Signs Date Time Temp Pulse Resp B/P (MAP) Pulse Ox O2 Delivery O2 Flow Rate FiO2 09/19/17 11:11 98.2 09/19/17 08:17 71 117/73 09/19/17 08:00 22 99 Room Air Laboratory Tests Test 09/19/17 06:45 White Blood Count 5.1 K/UL (4.8-10.8) Red Blood Count 3.79 M/UL (4.20-5.40) L Hemoglobin 11.3 G/DL (12.0-16.0) L Hematocrit 34.6 % (37.0-47.0) L Mean Corpuscular Volume 91 FL (80-99) Mean Corpuscular Hemoglobin 29.9 PG (27.0-31.0) Mean Corpuscular Hemoglobin Concent 32.8 G/DL (32.0-36.0) Red Cell Distribution Width 13.5 % (11.6-14.8) Platelet Count 293 K/UL (150-450) Mean Platelet Volume 5.3 FL (6.5-10.1) L Neutrophils (%) (Auto) 52.4 % (45.0-75.0) Lymphocytes (%) (Auto) 36.7 % (20.0-45.0) Monocytes (%) (Auto) 6.6 % (1.0-10.0) Eosinophils (%) (Auto) 3.1 % (0.0-3.0) H Basophils (%) (Auto) 1.1 % (0.0-2.0) Sodium Level 143 MMOL/L (136-145) Potassium Level 3.8 MMOL/L (3.5-5.1) Chloride Level 106 MMOL/L (98-107) Carbon Dioxide Level 29 MMOL/L (21-32) Anion Gap 8 mmol/L (5-15) Blood Urea Nitrogen 19 mg/dL (7-18) H Creatinine 0.9 MG/DL (0.55-1.30) Estimat Glomerular Filtration Rate > 60 mL/min (>60) Glucose Level 114 MG/DL (74-106) H Calcium Level 9.1 MG/DL (8.5-10.1) Neurologic Exam Objective PHYSICAL EXAMINATION: GENERAL: She is a well-developed, well-nourished, pleasant, black lady, lying in bed, in no acute distress. HEAD: Normocephalic and atraumatic. EENT: Examination benign. NECK: No neck rigidity was observed. SPINE: Her lumbosacral spine revealed significant scarring from prior surgery and mild spasm. NEUROLOGICAL EXAMINATION: MENTAL STATUS EXAMINATION: She was awake and alert. She was oriented to person, place, and time. She was able to recall 3/3 words immediately and could remember them in 1 and 3 minutes. She was able to remember presidents Trump through Venegas senior with hints. Her mathematical skills were minimally impaired. Her visuospatial function was relatively good. SPEECH: She had no dysarthria. LANGUAGE: She had no aphasia. CRANIAL NERVE EXAMINATION: II: The visual montero were intact in the left eye. She had loss of vision with no light perception in the right eye. III, IV & : The external ocular movements were full in the left eye, but restricted in the right eye. The right pupil was 3 mm and did not react to light. The left pupil was 3 mm and reacted sluggishly to light. V: She had normal facial sensations and the temporales, masseters, and pterygoids function normally. VII: She had a right VII central facial paresis. VIII: She was able to hear well bilaterally and had no nystagmus. IX: The palate moved symmetrically on phonation. X: She had no hoarseness of voice. XI: The sternocleidomastoids and trapezii functioned normally. XII: The tongue was in the midline without any fasciculations or atrophy. MOTOR SYSTEM: The tone was normal in all four extremities. Examination of muscle mass revealed no focal wasting. Examination of power revealed G 5/5 power except for G 5-/5 power in the right finger extensors, G 4++/5 power in the right iliopsoas, and G 0/5 power in the right ankle dorsiflexors and toe extensors. She exhibited minimal give-way weakness on the right. SENSORY EXAMINATION: She had a subjective alteration to pinprick and light touch over her entire right body. REFLEXES: 1+ and bilaterally symmetrical at the biceps, triceps, and brachioradialis, 0 on the right, and 2+ on the left at the knees, 0 at both ankles. The plantar responses were flexor bilaterally. COORDINATION: She performed well on [id number] testing. She was unable to perform [id number] testing. STANCE & GAIT: Could not be tested as she was unable to try. ABNORMAL MOVEMENTS: She had a dystonic tremor involving the right upper extremity. Impression/Recommendations Diagnostic Impression 1. Ms. Naz Carmona is a 52-year-old, right-handed, black lady, who does have a past history of lumbosacral spine disease for which she has had extensive surgery with a failed back associated with chronic low back pain and spasms involving the right lower extremity for which she has had a spinal stimulator placed. 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 2. On 09/15/17 she went to see a Neurosurgeon at [facility] for possible surgical interventions. He told her that she was not a surgical candidate. Soon after that she developed worsening of her pain and spasms in the low back and right leg and became nonfunctional and as a result of that was brought to the [facility] ER and has since been admitted. 3. She feels much better today. The last time she had a spasm was last night - it was only in her low back and lasted ~ 15 minutes. The pain in her low back is much better. She feels that the Lidoderm patches have helped. She tolerated the Elavil well. The right leg spasms have completely resolved. She denies any new neurologic symptoms. The pain is better controlled. 4. On neurological examination, at this time, she does demonstrate loss of vision in the right eye, and restricted eye movements in the right eye, a right VII central facial paresis, right-sided weakness with G 5/5 weakness in the finger extensors, G 4+/5 power in the iliopsoas, and G 0/5 power in the ankle dorsiflexors and toe extensors - with significant give way in the right lower extremity, a subjective alteration of sensation over entire right body, diminished deep tendon reflexes globally with loss of the right knee jerk and a right upper extremity dystonic tremor. She dose have mild spasm in the LS spine. 5. The most likely etiology for the patient's low back pain and spasms would be her underlying spine pathology which had become more symptomatic. Her right hemiparesis and hemisensory deficit are unexplained. 6. Her back pain and spasms are significantly better today. Recommendations 1. Continue present management. 2. Pain Management as per pain management physician. 3. Continue Soma for muscle spasms. 4. Continue Lidoderm patch for back pain. 5. Continue Elavil 25 mg q HS for chronic spasm prophylaxis. 6. Mobilize with the help of physical and occupational therapy. 7. Observe closely. Chelly Angeles M.D., M.S.P.CHELLY LARSON September 19, 2017 11:23
[2017-09-19 12:00] VITALS: BP 138/88
[2017-09-19 15:58] VITALS: BP 131/80
[2017-09-19 20:00] VITALS: BP 134/85
[2017-09-19] MEDS: Dyna-Hex 2% Top Sol 2oz TOPIC SCH (21:37)
[2017-09-20] VITALS: BP 112/70
[2017-09-20] MEDS: LORazepam Inj 2mg/ml 1ml IVP PRN ×3 (00:36→17:14)
[2017-09-20] MEDS: DiphenhydrAMINE 50mg/ml Inj IVP PRN ×4 (03:21→17:16)
[2017-09-20] MEDS: Morphine Sulfate 4mg/ml Inj IVP PRN ×4 (03:21→17:16)
[2017-09-20 04:00] VITALS: BP 137/78
[2017-09-20 08:00] VITALS: BP 118/74
--- NOTE | 2017-09-20 08:15 | Consultation ---
DATE OF CONSULTATION: 09/17/2017 PSYCHOTHERAPY CONSULTATION PROGRESS NOTE CONSULTING PHYSICIAN: Víctor Woo PsyD. TREATING ATTENDING PHYSICIAN: Ernesto Magallon D.O. HISTORY: The patient is a 52-year-old female patient who was brought into the hospital with right hip and leg pain, abdominal pain, and back pain. The patient has developed tremors. She has admitted to the hospital evaluation of current treatment. This patient has a history of anxiety due to her current medical condition. The patient has been very agitated, irritable, abusing staff and she was referred for psychotherapeutic services as noted above. When this clinician assessed this patient, the patient is very tearful at times upon discussing her feelings of helplessness due to her current medical condition and pain that she has experiencing. The patient denies suicidal or homicidal thoughts of ideation, however, she states that she does have bouts of anxiety and agitation, and she felt very helpless due to her current medical condition. PAST MEDICAL HISTORY: History of chronic pain, hypertension, cauda equina syndrome and neurological issues. ALLERGIES: The patient is allergic to morphine, iodine, methadone. SUBSTANCE ABUSE HISTORY: The patient denies history of alcohol use, illicit substance use, or smoking cigarettes. PSYCHIATRIC HISTORY: The patient states that she has a history of anxiety. SOCIAL HISTORY: The patient states that she lives in her own residence. The patient is a 52-year-old female patient. Financially sustained through [employer]. MENTAL STATUS EXAMINATION: She is alert and oriented to person, place, time, and situation. Her mood is anxious and tearful. Affect is tearful. Thought process, organized. Thought content linear. The patient has fair attention and concentration. Fair insight, judgment, and impulse control. DIAGNOSIS: Generalized anxiety disorder. PLAN: This clinician assessed this patient. Provided the patient with supportive psychotherapy. has been encouraged. Encouraged the patient to participate in treatment milieu. Provided her with the patient reality orientation. Encouraging the patient to . Continue behavioral management. This clinician has reviewed the patient's chart and discussed with the treatment team regarding treatment. Víctor Woo PsyD. DR: BRITTANY JOB#: [id number] CC:
[2017-09-20 08:30] LABS: BASOPHILS % (AUTO) 0.9 % (0.0-2.0); EOSINOPHILS % (AUTO) 3.4 % (0.0-3.0); HEMATOCRIT 33.4 % (37.0-47.0); HEMOGLOBIN 10.4 G/DL (12.0-16.0); LYMPHOCYTES % (AUTO) 41.2 % (20.0-45.0); MEAN CORPUSCULAR VOLUME 92 FL (80-99); MONOCYTES % (AUTO) 8.2 % (1.0-10.0); NEUTROPHILS % (AUTO) 46.3 % (45.0-75.0); PLATELET COUNT 280 K/UL (150-450); RED BLOOD COUNT 3.64 M/UL (4.20-5.40); RED CELL DISTRIBUTION WIDTH 13.5 % (11.6-14.8); WHITE BLOOD COUNT 5.2 K/UL (4.8-10.8)
[2017-09-20] MEDS: DULoxetine 30mg cap ORAL SCH (08:33)
[2017-09-20] MEDS: Metoprolol Succinate XL 50mg tab ORAL SCH (08:34)
[2017-09-20] MEDS: Xarelto 10mg tab ORAL SCH (08:35)
[2017-09-20 08:39] LABS: ANION GAP 8 mmol/L (5-15); BLOOD UREA NITROGEN 20 mg/dL (7-18); CALCIUM 8.5 MG/DL (8.5-10.1); CARBON DIOXIDE 27 MMOL/L (21-32); CHLORIDE 108 MMOL/L (98-107); CREATININE 0.9 MG/DL (0.55-1.30); POTASSIUM 4.1 MMOL/L (3.5-5.1); SODIUM 143 MMOL/L (136-145)
--- NOTE | 2017-09-20 08:45 | General Progress Note ---
Assessment/Plan Assessment/Plan (1) Lumbar DDD (2) Lumbar spondylosis (4) Lumbar Herniated disc (5) Lumbar Radiculopathy (6) FBSS Patient to be continued on Ativan, Morphine IV and Dilaudid. D/w Dr. Singh and he concurred. Subjective Date patient seen: September 20, 2017 Time patient seen: 07:45 - am Allergies: Coded Allergies: IRON (Verified Allergy, Unknown, Rash, 08/09/17) had nausea, vomiting and rashes METHADONE (Verified Allergy, Unknown, 06/04/17) MORPHINE (Verified Allergy, Unknown, 09/06/17) PREGABALIN (Verified Allergy, Unknown, 06/04/17) Subjective REVIEW OF SYSTEMS: Denies rash, fever, chills, sweating, dizziness, drowsiness, blurred vision, sore throat, or change in her weight. No shortness of breath or chest pain. No nausea, vomiting, diarrhea, or blood in stool or urine. No bowel or bladder incontinence. No dysuria. She is complaining of low back pain. SUBJECTIVE: Patient is in bed and has no new complaints. Pain is unchanged and taking the morphine as needed. Objective Last 24 Hour Vital Signs Date Time Temp Pulse Resp B/P (MAP) Pulse Ox O2 Delivery O2 Flow Rate FiO2 09/20/17 08:34 71 137/78 09/20/17 08:34 74 118/74 09/20/17 04:00 98.0 71 20 137/78 100 98.0 09/20/17 00:00 98.1 68 20 112/70 98 98.1 09/19/17 20:00 98.3 74 20 134/85 96 98.3 09/19/17 19:01 99.1 09/19/17 19:01 99.1 09/19/17 18:56 99.1 09/19/17 18:02 99.1 09/19/17 18:02 99.1 09/19/17 15:58 99.1 75 20 131/80 99 Room Air 99.1 09/19/17 15:27 98.7 09/19/17 14:57 98.7 09/19/17 12:43 98.7 09/19/17 12:43 98.7 09/19/17 12:00 98.7 78 21 138/88 96 Room Air 98.7 09/19/17 10:41 98.2 Intake and Output 09/19/17 09/20/17 19:00 07:00 Intake Total 960 ml Balance 960 ml Intake Oral 960 ml # Voids 1 2 Laboratory Tests 09/20/17 06:35: White Blood Count 5.2, Red Blood Count 3.64L, Hemoglobin 10.4L, Hematocrit 33.4L , Mean Corpuscular Volume 92, Mean Corpuscular Hemoglobin 28.7, Mean Corpuscular Hemoglobin Concent 31.2L, Red Cell Distribution Width 13.5, Platelet Count 280, Mean Platelet Volume 5.3L, Neutrophils (%) (Auto) 46.3, Lymphocytes (%) (Auto) 41.2, Monocytes (%) (Auto) 8.2, Eosinophils (%) (Auto) 3.4H, Basophils (%) (Auto) 0.9, Sodium Level 143, Potassium Level 4.1, Chloride Level 108H, Carbon Dioxide Level 27, Anion Gap 8, Blood Urea Nitrogen 20H, Creatinine 0.9, Estimat Glomerular Filtration Rate > 60, Glucose Level 85, Calcium Level 8.5 Height (Feet): 5 Height (Inches): 3.00 Weight (Pounds): 149 Objective GENERAL: Alert, awake, and oriented x3. HEENT: PERRLA on the left. On the right, prosthetic eye noted. NECK: Range of motion is full in all directions. LUNGS: Clear. HEART: Regular. ABDOMEN: Tenderness to palpation. BACK: Range of motion is decreased in flexion and extension with surgical scar noted. Tenderness to palpation. EXTREMITIES: Upper and lower extremity range of motion is decreased due to the patient's condition. No cyanosis. No clubbing. Sensory is reduced. Reflexes are not obtainable. No adenopathy. SUNITHA CASTILLO September 20, 2017 08:45
--- NOTE | 2017-09-20 10:15 | Neurology Progress Note ---
Interim History Interim History Interim History Ms. Carmona feels about the same as yesterday. She has had mild low back spasm. The pain in her low back is about the same as yesterday. She feels that the Lidoderm patches have helped. She tolerated the Elavil well. The right leg spasms have completely resolved. She denies any new neurologic symptoms. The pain is better controlled - but is still bothersome. Review of Systems Neuro Review of Systems Benign. Objective Physical Exam Last Vital Signs Date Time Temp Pulse Resp B/P (MAP) Pulse Ox O2 Delivery O2 Flow Rate FiO2 09/20/17 08:34 71 137/78 09/20/17 04:00 98.0 20 100 98.0 09/19/17 15:58 Room Air Laboratory Tests Test 09/20/17 06:35 White Blood Count 5.2 K/UL (4.8-10.8) Red Blood Count 3.64 M/UL (4.20-5.40) L Hemoglobin 10.4 G/DL (12.0-16.0) L Hematocrit 33.4 % (37.0-47.0) L Mean Corpuscular Volume 92 FL (80-99) Mean Corpuscular Hemoglobin 28.7 PG (27.0-31.0) Mean Corpuscular Hemoglobin Concent 31.2 G/DL (32.0-36.0) L Red Cell Distribution Width 13.5 % (11.6-14.8) Platelet Count 280 K/UL (150-450) Mean Platelet Volume 5.3 FL (6.5-10.1) L Neutrophils (%) (Auto) 46.3 % (45.0-75.0) Lymphocytes (%) (Auto) 41.2 % (20.0-45.0) Monocytes (%) (Auto) 8.2 % (1.0-10.0) Eosinophils (%) (Auto) 3.4 % (0.0-3.0) H Basophils (%) (Auto) 0.9 % (0.0-2.0) Sodium Level 143 MMOL/L (136-145) Potassium Level 4.1 MMOL/L (3.5-5.1) Chloride Level 108 MMOL/L (98-107) H Carbon Dioxide Level 27 MMOL/L (21-32) Anion Gap 8 mmol/L (5-15) Blood Urea Nitrogen 20 mg/dL (7-18) H Creatinine 0.9 MG/DL (0.55-1.30) Estimat Glomerular Filtration Rate > 60 mL/min (>60) Glucose Level 85 MG/DL (74-106) Calcium Level 8.5 MG/DL (8.5-10.1) Neurologic Exam Objective PHYSICAL EXAMINATION: GENERAL: She is a well-developed, well-nourished, pleasant, black lady, lying in bed, in no acute distress. HEAD: Normocephalic and atraumatic. EENT: Examination benign. NECK: No neck rigidity was observed. SPINE: Her lumbosacral spine revealed significant scarring from prior surgery and mild spasm. NEUROLOGICAL EXAMINATION: MENTAL STATUS EXAMINATION: She was awake and alert. She was oriented to person, place, and time. She was able to recall 3/3 words immediately and could remember them in 1 and 3 minutes. She was able to remember presidents Trump through Venegas senior with hints. Her mathematical skills were minimally impaired. Her visuospatial function was relatively good. SPEECH: She had no dysarthria. LANGUAGE: She had no aphasia. CRANIAL NERVE EXAMINATION: II: The visual montero were intact in the left eye. She had loss of vision with no light perception in the right eye. III, IV & : The external ocular movements were full in the left eye, but restricted in the right eye. The right pupil was 3 mm and did not react to light. The left pupil was 3 mm and reacted sluggishly to light. V: She had normal facial sensations and the temporales, masseters, and pterygoids function normally. VII: She had a right VII central facial paresis. VIII: She was able to hear well bilaterally and had no nystagmus. IX: The palate moved symmetrically on phonation. X: She had no hoarseness of voice. XI: The sternocleidomastoids and trapezii functioned normally. XII: The tongue was in the midline without any fasciculations or atrophy. MOTOR SYSTEM: The tone was normal in all four extremities. Examination of muscle mass revealed no focal wasting. Examination of power revealed G 5/5 power except for G 5-/5 power in the right finger extensors, G 4++/5 power in the right iliopsoas, and G 0/5 power in the right ankle dorsiflexors and toe extensors. She exhibited minimal give-way weakness on the right. SENSORY EXAMINATION: She had a subjective alteration to pinprick and light touch over her entire right body. REFLEXES: 1+ and bilaterally symmetrical at the biceps, triceps, and brachioradialis, 0 on the right, and 2+ on the left at the knees, 0 at both ankles. The plantar responses were flexor bilaterally. COORDINATION: She performed well on [id number] testing. She was unable to perform [id number] testing. STANCE & GAIT: Could not be tested as she was unable to try. ABNORMAL MOVEMENTS: She had a dystonic tremor involving the right upper extremity. Impression/Recommendations Diagnostic Impression 1. Ms. Naz Carmona is a 52-year-old, right-handed, black lady, who does have a past history of lumbosacral spine disease for which she has had extensive surgery with a failed back associated with chronic low back pain and spasms involving the right lower extremity for which she has had a spinal stimulator placed. 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 2. On 09/15/17 she went to see a Neurosurgeon at [facility] for possible surgical interventions. He told her that she was not a surgical candidate. Soon after that she developed worsening of her pain and spasms in the low back and right leg and became nonfunctional and as a result of that was brought to the [facility] and has since been admitted. 3. She feels about the same as yesterday. She has had mild low back spasm. The pain in her low back is about the same as yesterday. She feels that the Lidoderm patches have helped. She tolerated the Elavil well. The right leg spasms have completely resolved. She denies any new neurologic symptoms. The pain is better controlled - but is still bothersome. 4. On neurological examination, at this time, she does demonstrate loss of vision in the right eye, and restricted eye movements in the right eye, a right VII central facial paresis, right-sided weakness with G 5/5 weakness in the finger extensors, G 4+/5 power in the iliopsoas, and G 0/5 power in the ankle dorsiflexors and toe extensors - with significant give way in the right lower extremity, a subjective alteration of sensation over entire right body, diminished deep tendon reflexes globally with loss of the right knee jerk and a right upper extremity dystonic tremor. She dose have mild spasm in the LS spine. 5. The most likely etiology for the patient's low back pain and spasms would be her underlying spine pathology which had become more symptomatic. Her right hemiparesis and hemisensory deficit are unexplained. 6. Her back pain and spasms are significantly better than when she came in. Recommendations 1. Continue present management. 2. Pain Management as per pain management physician. 3. Continue Soma for muscle spasms. 4. Continue Lidoderm patch for back pain. 5. Continue Elavil 25 mg q HS for chronic spasm prophylaxis. 6. Mobilize with the help of physical and occupational therapy. 7. Observe closely. Chelly Antoine M.D., M.S.P.H. CHELLY ANTOINE September 20, 2017 10:15
--- NOTE | 2017-09-20 10:57 | Infectious Diseases Prog Note ---
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 Chronic pain and cauda equina syndrome. Hypertension. History of back surgery. History of hysterectomy PLAN: monitor the patient off of antibiotics. Monitor CBC. Monitor BMP. Pain management as per primary care team. Subjective Allergies: Coded Allergies: IRON (Verified Allergy, Unknown, Rash, 08/09/17) had nausea, vomiting and rashes METHADONE (Verified Allergy, Unknown, 06/04/17) MORPHINE (Verified Allergy, Unknown, 09/06/17) PREGABALIN (Verified Allergy, Unknown, 06/04/17) Subjective no new complain Objective Vital Signs Last 24 Hour Vital Signs Date Time Temp Pulse Resp B/P (MAP) Pulse Ox O2 Delivery O2 Flow Rate FiO2 09/20/17 08:34 71 137/78 09/20/17 08:34 74 118/74 09/20/17 08:00 98.2 74 20 118/74 100 98.2 09/20/17 04:00 98.0 71 20 137/78 100 98.0 09/20/17 00:00 98.1 68 20 112/70 98 98.1 09/19/17 20:00 98.3 74 20 134/85 96 98.3 09/19/17 19:01 99.1 09/19/17 19:01 99.1 09/19/17 18:56 99.1 09/19/17 18:02 99.1 09/19/17 18:02 99.1 09/19/17 15:58 99.1 75 20 131/80 99 Room Air 99.1 09/19/17 15:27 98.7 09/19/17 14:57 98.7 09/19/17 12:43 98.7 09/19/17 12:43 98.7 09/19/17 12:00 98.7 78 21 138/88 96 Room Air 98.7 Height (Feet): 5 Height (Inches): 3.00 Weight (Pounds): 149 HEENT: atraumatic Respiratory/Chest: no respiratory distress Cardiovascular: regularly irregular Abdomen: no organomegaly Laboratory Tests Test 09/20/17 06:35 White Blood Count 5.2 K/UL (4.8-10.8) Red Blood Count 3.64 M/UL (4.20-5.40) L Hemoglobin 10.4 G/DL (12.0-16.0) L Hematocrit 33.4 % (37.0-47.0) L Mean Corpuscular Volume 92 FL (80-99) Mean Corpuscular Hemoglobin 28.7 PG (27.0-31.0) Mean Corpuscular Hemoglobin Concent 31.2 G/DL (32.0-36.0) L Red Cell Distribution Width 13.5 % (11.6-14.8) Platelet Count 280 K/UL (150-450) Mean Platelet Volume 5.3 FL (6.5-10.1) L Neutrophils (%) (Auto) 46.3 % (45.0-75.0) Lymphocytes (%) (Auto) 41.2 % (20.0-45.0) Monocytes (%) (Auto) 8.2 % (1.0-10.0) Eosinophils (%) (Auto) 3.4 % (0.0-3.0) H Basophils (%) (Auto) 0.9 % (0.0-2.0) Sodium Level 143 MMOL/L (136-145) Potassium Level 4.1 MMOL/L (3.5-5.1) Chloride Level 108 MMOL/L (98-107) H Carbon Dioxide Level 27 MMOL/L (21-32) Anion Gap 8 mmol/L (5-15) Blood Urea Nitrogen 20 mg/dL (7-18) H Creatinine 0.9 MG/DL (0.55-1.30) Estimat Glomerular Filtration Rate > 60 mL/min (>60) Glucose Level 85 MG/DL (74-106) Calcium Level 8.5 MG/DL (8.5-10.1) Current Medications Medications (Trade) Dose Ordered Sig/Danni Route PRN Reason Start Time Stop Time Status Last Admin Dose Admin Acetaminophen (Tylenol) 650 mg Q4H PRN ORAL fever 09/16/17 15:30 10/16/17 15:29 Al Hydroxide/Mg Hydroxide (Mylanta II) 30 ml Q6H PRN ORAL dyspepsia 09/16/17 15:30 10/16/17 15:29 Amitriptyline HCl (Elavil) 25 mg BEDTIME ORAL 09/18/17 21:00 10/17/17 20:59 09/19/17 21:37 Amlodipine Besylate (Norvasc) 10 mg DAILY ORAL 09/19/17 09:00 10/17/17 08:59 09/20/17 08:34 Carisoprodol (Soma) 350 mg TID ORAL 09/18/17 14:00 10/17/17 13:59 09/20/17 08:36 Chlorhexidine Gluconate (Margot-Hex 2%) 1 applic DAILY@2000 TOPIC 09/18/17 20:00 10/17/17 19:59 09/19/17 21:37 Clonazepam (KlonoPIN) 1 mg BID ORAL 09/18/17 18:00 09/24/17 17:59 09/19/17 18:02 Dextrose (Dextrose 50%) STAT PRN IV Hypoglycemia 09/16/17 15:30 10/16/17 15:29 Dextrose (Dextrose 50%) STAT PRN IV Hypoglycemia 09/16/17 16:15 10/16/17 16:14 Dicyclomine HCl (Bentyl) 10 mg Q6H PRN ORAL Abdominal cramps 09/17/17 15:15 10/17/17 15:14 Diphenhydramine HCl (Benadryl) 25 mg Q4H PRN IVP Itching 09/17/17 11:00 10/16/17 10:59 09/20/17 08:36 Duloxetine HCl (Cymbalta) 30 mg DAILY ORAL 09/19/17 09:00 10/17/17 08:59 09/20/17 08:33 Gabapentin (Neurontin) 300 mg TID ORAL 09/18/17 14:00 10/18/17 13:59 09/20/17 08:35 Hydralazine HCl (Apresoline) 25 mg EVERY 4 HOURS PRN ORAL SBP>160 09/16/17 21:48 10/16/17 21:47 Hydromorphone HCl (Dilaudid) 4 mg Q4H PRN ORAL severe breakthrough pain 09/16/17 23:00 09/23/17 22:59 Lidocaine (Lidoderm 5% PATCH) 2 patch DAILY@2100 TDERMAL 09/18/17 21:00 10/16/17 20:59 09/19/17 21:38 Lorazepam (Ativan 2mg/ml 1ml) 1 mg Q3HR PRN IVP For Anxiety 09/17/17 22:15 09/24/17 22:14 09/20/17 00:36 Metoprolol Succinate (Toprol XL) 50 mg DAILY ORAL 09/19/17 09:00 10/17/17 08:59 09/20/17 08:34 Morphine Sulfate (Morphine Sulfate) 4 mg Q4H PRN IVP Severe Pain (Pain Scale 7-10) 09/16/17 15:35 09/23/17 15:34 09/20/17 08:37 Ondansetron HCl (Zofran) 4 mg Q6H PRN IVP Nausea & Vomiting 09/16/17 15:30 10/16/17 15:29 Polyethylene Glycol (Miralax) 17 gm HSPRN PRN ORAL Constipation 09/16/17 21:00 10/16/17 20:59 Rivaroxaban (Xarelto) 20 mg DAILY ORAL 09/19/17 09:00 10/17/17 08:59 09/20/17 08:35 Tizanidine HCl (Zanaflex) 4 mg THREE TIMES A DAY ORAL 09/18/17 14:00 10/17/17 13:59 09/20/17 08:34 Zolpidem Tartrate (Ambien) 5 mg HSPRN PRN ORAL Insomnia 09/16/17 21:00 09/23/17 20:59 Enrico Michel MD September 20, 2017 10:57
[2017-09-20 12:00] VITALS: BP 134/83
--- NOTE | 2017-09-20 12:13 | GI Progress Note ---
Assessment/Plan Problems: (1) abdominal pain (2) Hypoalbuminemia ICD Codes: E88.09 - Other disorders of plasma-protein metabolism, not elsewhere classified SNOMED: 538944270 (3) Anemia ICD Codes: D64.9 - Anemia, unspecified SNOMED: 412515639 (4) spasmodic severe pain (5) Opioid dependence ICD Codes: F11.20 - Opioid dependence, uncomplicated SNOMED: 08473851 (6) pain (7) Benzodiazepine dependence ICD Codes: F13.20 - Sedative, hypnotic or anxiolytic dependence, uncomplicated SNOMED: 612528012 Status: unchanged Status Narrative Discussed with Dr. Haines. Assessment/Plan history of folate deficiency generalized pain and spasms symptomatic treatment pain mgmt Zofran prn Bentyl prn prn transfusions folate outpatient GI procedures Subjective Subjective generalized pain and spasms Objective Last 24 Hour Vital Signs Date Time Temp Pulse Resp B/P (MAP) Pulse Ox O2 Delivery O2 Flow Rate FiO2 09/20/17 08:34 71 137/78 09/20/17 08:34 74 118/74 09/20/17 08:00 98.2 74 20 118/74 100 98.2 09/20/17 04:00 98.0 71 20 137/78 100 98.0 09/20/17 00:00 98.1 68 20 112/70 98 98.1 09/19/17 20:00 98.3 74 20 134/85 96 98.3 09/19/17 19:01 99.1 09/19/17 19:01 99.1 09/19/17 18:56 99.1 09/19/17 18:02 99.1 09/19/17 18:02 99.1 09/19/17 15:58 99.1 75 20 131/80 99 Room Air 99.1 09/19/17 15:27 98.7 09/19/17 14:57 98.7 09/19/17 12:43 98.7 09/19/17 12:43 98.7 Intake and Output 09/19/17 09/20/17 19:00 07:00 Intake Total 960 ml Balance 960 ml Intake Oral 960 ml # Voids 1 2 Laboratory Tests Test 09/20/17 06:35 White Blood Count 5.2 K/UL (4.8-10.8) Red Blood Count 3.64 M/UL (4.20-5.40) L Hemoglobin 10.4 G/DL (12.0-16.0) L Hematocrit 33.4 % (37.0-47.0) L Mean Corpuscular Volume 92 FL (80-99) Mean Corpuscular Hemoglobin 28.7 PG (27.0-31.0) Mean Corpuscular Hemoglobin Concent 31.2 G/DL (32.0-36.0) L Red Cell Distribution Width 13.5 % (11.6-14.8) Platelet Count 280 K/UL (150-450) Mean Platelet Volume 5.3 FL (6.5-10.1) L Neutrophils (%) (Auto) 46.3 % (45.0-75.0) Lymphocytes (%) (Auto) 41.2 % (20.0-45.0) Monocytes (%) (Auto) 8.2 % (1.0-10.0) Eosinophils (%) (Auto) 3.4 % (0.0-3.0) H Basophils (%) (Auto) 0.9 % (0.0-2.0) Sodium Level 143 MMOL/L (136-145) Potassium Level 4.1 MMOL/L (3.5-5.1) Chloride Level 108 MMOL/L (98-107) H Carbon Dioxide Level 27 MMOL/L (21-32) Anion Gap 8 mmol/L (5-15) Blood Urea Nitrogen 20 mg/dL (7-18) H Creatinine 0.9 MG/DL (0.55-1.30) Estimat Glomerular Filtration Rate > 60 mL/min (>60) Glucose Level 85 MG/DL (74-106) Calcium Level 8.5 MG/DL (8.5-10.1) Height (Feet): 5 Height (Inches): 3.00 Weight (Pounds): 149 General Appearance: WD/WN, no apparent distress, alert Cardiovascular: normal rate Respiratory/Chest: normal breath sounds, no respiratory distress Abdominal Exam: normal bowel sounds, non tender, soft Extremities: normal range of motion, non-tender Mariah Peace NP September 20, 2017 12:13
--- NOTE | 2017-09-20 15:15 | Pulmonology Progress Note ---
Assessment/Plan Problems: (1) Intractable back pain (2) HTN (hypertension) (3) Muscle spasm (4) Chronic pain syndrome (5) Opioid dependence Assessment/Plan improving no new complains anemia w/u symptomatic treatment check electrolytes Subjective ROS Limited/Unobtainable: No Constitutional: Reports: no symptoms HEENT: Repors: no symptoms Respiratory: Reports: no symptoms Allergies: Coded Allergies: IRON (Verified Allergy, Unknown, Rash, 08/09/17) had nausea, vomiting and rashes METHADONE (Verified Allergy, Unknown, 06/04/17) MORPHINE (Verified Allergy, Unknown, 09/06/17) PREGABALIN (Verified Allergy, Unknown, 06/04/17) Objective Last 24 Hour Vital Signs Date Time Temp Pulse Resp B/P (MAP) Pulse Ox O2 Delivery O2 Flow Rate FiO2 09/20/17 12:00 97.7 74 20 134/83 98 97.7 09/20/17 08:34 71 137/78 09/20/17 08:34 74 118/74 09/20/17 08:00 98.2 74 20 118/74 100 98.2 09/20/17 04:00 98.0 71 20 137/78 100 98.0 09/20/17 00:00 98.1 68 20 112/70 98 98.1 09/19/17 20:00 98.3 74 20 134/85 96 98.3 09/19/17 19:01 99.1 09/19/17 19:01 99.1 09/19/17 18:56 99.1 09/19/17 18:02 99.1 09/19/17 18:02 99.1 09/19/17 15:58 99.1 75 20 131/80 99 Room Air 99.1 09/19/17 15:27 98.7 Intake and Output 09/19/17 09/20/17 19:00 07:00 Intake Total 960 ml Balance 960 ml Intake Oral 960 ml # Voids 1 2 General Appearance: WD/WN HEENT: normocephalic, atraumatic Respiratory/Chest: chest wall non-tender, lungs clear Breasts: no masses Cardiovascular: normal peripheral pulses Abdomen: normal bowel sounds Genitourinary: normal external genitalia Skin: no rash Neurologic/Psychiatric: packer and carry out II-XII grossly normal Laboratory Tests 09/20/17 06:35: White Blood Count 5.2, Red Blood Count 3.64L, Hemoglobin 10.4L, Hematocrit 33.4L , Mean Corpuscular Volume 92, Mean Corpuscular Hemoglobin 28.7, Mean Corpuscular Hemoglobin Concent 31.2L, Red Cell Distribution Width 13.5, Platelet Count 280, Mean Platelet Volume 5.3L, Neutrophils (%) (Auto) 46.3, Lymphocytes (%) (Auto) 41.2, Monocytes (%) (Auto) 8.2, Eosinophils (%) (Auto) 3.4H, Basophils (%) (Auto) 0.9, Sodium Level 143, Potassium Level 4.1, Chloride Level 108H, Carbon Dioxide Level 27, Anion Gap 8, Blood Urea Nitrogen 20H, Creatinine 0.9, Estimat Glomerular Filtration Rate > 60, Glucose Level 85, Calcium Level 8.5 Current Medications Medications (Trade) Dose Ordered Sig/Danni Route PRN Reason Start Time Stop Time Status Last Admin Dose Admin Acetaminophen (Tylenol) 650 mg Q4H PRN ORAL fever 09/16/17 15:30 10/16/17 15:29 Al Hydroxide/Mg Hydroxide (Mylanta II) 30 ml Q6H PRN ORAL dyspepsia 09/16/17 15:30 10/16/17 15:29 Amitriptyline HCl (Elavil) 25 mg BEDTIME ORAL 09/18/17 21:00 10/17/17 20:59 09/19/17 21:37 Amlodipine Besylate (Norvasc) 10 mg DAILY ORAL 09/19/17 09:00 10/17/17 08:59 09/20/17 08:34 Carisoprodol (Soma) 350 mg TID ORAL 09/18/17 14:00 10/17/17 13:59 09/20/17 13:01 Chlorhexidine Gluconate (Margot-Hex 2%) 1 applic DAILY@2000 TOPIC 09/18/17 20:00 10/17/17 19:59 09/19/17 21:37 Clonazepam (KlonoPIN) 1 mg BID ORAL 09/18/17 18:00 09/24/17 17:59 09/19/17 18:02 Dextrose (Dextrose 50%) STAT PRN IV Hypoglycemia 09/16/17 15:30 10/16/17 15:29 Dextrose (Dextrose 50%) STAT PRN IV Hypoglycemia 09/16/17 16:15 10/16/17 16:14 Dicyclomine HCl (Bentyl) 10 mg Q6H PRN ORAL Abdominal cramps 09/17/17 15:15 10/17/17 15:14 Diphenhydramine HCl (Benadryl) 25 mg Q4H PRN IVP Itching 09/17/17 11:00 10/16/17 10:59 09/20/17 13:01 Duloxetine HCl (Cymbalta) 30 mg DAILY ORAL 09/19/17 09:00 10/17/17 08:59 09/20/17 08:33 Gabapentin (Neurontin) 300 mg TID ORAL 09/18/17 14:00 10/18/17 13:59 09/20/17 13:00 Hydralazine HCl (Apresoline) 25 mg EVERY 4 HOURS PRN ORAL SBP>160 09/16/17 21:48 10/16/17 21:47 Hydromorphone HCl (Dilaudid) 4 mg Q4H PRN ORAL severe breakthrough pain 09/16/17 23:00 09/23/17 22:59 Lidocaine (Lidoderm 5% PATCH) 2 patch DAILY@2100 TDERMAL 09/18/17 21:00 10/16/17 20:59 09/19/17 21:38 Lorazepam (Ativan 2mg/ml 1ml) 1 mg Q3HR PRN IVP For Anxiety 09/17/17 22:15 09/24/17 22:14 09/20/17 13:16 Metoprolol Succinate (Toprol XL) 50 mg DAILY ORAL 09/19/17 09:00 10/17/17 08:59 09/20/17 08:34 Morphine Sulfate (Morphine Sulfate) 4 mg Q4H PRN IVP Severe Pain (Pain Scale 7-10) 09/16/17 15:35 09/23/17 15:34 09/20/17 13:02 Ondansetron HCl (Zofran) 4 mg Q6H PRN IVP Nausea & Vomiting 09/16/17 15:30 10/16/17 15:29 Polyethylene Glycol (Miralax) 17 gm HSPRN PRN ORAL Constipation 09/16/17 21:00 10/16/17 20:59 Rivaroxaban (Xarelto) 20 mg DAILY ORAL 09/19/17 09:00 10/17/17 08:59 09/20/17 08:35 Tizanidine HCl (Zanaflex) 4 mg THREE TIMES A DAY ORAL 09/18/17 14:00 10/17/17 13:59 09/20/17 13:00 Zolpidem Tartrate (Ambien) 5 mg HSPRN PRN ORAL Insomnia 09/16/17 21:00 09/23/17 20:59 Adam Tom MD September 20, 2017 15:15
--- NOTE | 2017-09-20 15:57 | General Progress Note ---
Assessment/Plan Problem List: (1) Muscle spasm ICD Codes: M62.838 - Other muscle spasm SNOMED: 48399814, 89959971 (2) spasmodic severe pain (3) HTN (hypertension) ICD Codes: I10 - Essential (primary) hypertension SNOMED: 92113289 (4) Chronic pain syndrome ICD Codes: G89.4 - Chronic pain syndrome SNOMED: 393341990 (5) Intractable back pain ICD Codes: M54.9 - Dorsalgia, unspecified SNOMED: 200459751 Status: stable, progressing, tolerating diet Assessment/Plan ot pt diet pain control neuro f/u dc if clear Subjective Constitutional: Reports: weakness Allergies: Coded Allergies: IRON (Verified Allergy, Unknown, Rash, 08/09/17) had nausea, vomiting and rashes METHADONE (Verified Allergy, Unknown, 06/04/17) MORPHINE (Verified Allergy, Unknown, 09/06/17) PREGABALIN (Verified Allergy, Unknown, 06/04/17) All Systems: reviewed and negative except above Subjective sleepy calm Objective Last 24 Hour Vital Signs Date Time Temp Pulse Resp B/P (MAP) Pulse Ox O2 Delivery O2 Flow Rate FiO2 09/20/17 12:00 97.7 74 20 134/83 98 97.7 09/20/17 08:34 71 137/78 09/20/17 08:34 74 118/74 09/20/17 08:00 98.2 74 20 118/74 100 98.2 09/20/17 04:00 98.0 71 20 137/78 100 98.0 09/20/17 00:00 98.1 68 20 112/70 98 98.1 09/19/17 20:00 98.3 74 20 134/85 96 98.3 09/19/17 19:01 99.1 09/19/17 19:01 99.1 09/19/17 18:56 99.1 09/19/17 18:02 99.1 09/19/17 18:02 99.1 09/19/17 15:58 99.1 75 20 131/80 99 Room Air 99.1 Intake and Output 09/19/17 09/20/17 19:00 07:00 Intake Total 960 ml Balance 960 ml Intake Oral 960 ml # Voids 1 2 Laboratory Tests 09/20/17 06:35: White Blood Count 5.2, Red Blood Count 3.64L, Hemoglobin 10.4L, Hematocrit 33.4L , Mean Corpuscular Volume 92, Mean Corpuscular Hemoglobin 28.7, Mean Corpuscular Hemoglobin Concent 31.2L, Red Cell Distribution Width 13.5, Platelet Count 280, Mean Platelet Volume 5.3L, Neutrophils (%) (Auto) 46.3, Lymphocytes (%) (Auto) 41.2, Monocytes (%) (Auto) 8.2, Eosinophils (%) (Auto) 3.4H, Basophils (%) (Auto) 0.9, Sodium Level 143, Potassium Level 4.1, Chloride Level 108H, Carbon Dioxide Level 27, Anion Gap 8, Blood Urea Nitrogen 20H, Creatinine 0.9, Estimat Glomerular Filtration Rate > 60, Glucose Level 85, Calcium Level 8.5 Height (Feet): 5 Height (Inches): 3.00 Weight (Pounds): 149 General Appearance: lethargic EENT: normal ENT inspection Neck: normal alignment Cardiovascular: normal peripheral pulses, normal rate, regular rhythm Respiratory/Chest: chest wall non-tender, lungs clear, normal breath sounds Abdomen: normal bowel sounds, non tender, soft Extremities: normal inspection Edema: no edema noted Arm (L), no edema noted Arm (R), no edema noted Leg (L), no edema noted Leg (R), no edema noted Pedal (L), no edema noted Pedal (R), no edema noted Generalized Neurologic: motor weakness Skin: normal pigmentation, warm/dry Ernesto Magallon DO September 20, 2017 15:57
[2017-09-20 16:00] VITALS: BP 137/85
[2017-09-20 20:00] VITALS: BP 127/74
[2017-09-20] MEDS ORDERED: ACETAMINOPHEN325 M1 ORAL (20:08)
[2017-09-20] MEDS ORDERED: SOMA350 MG PO (20:10)
[2017-09-20] MEDS ORDERED: CYMBALTA30 MG ORAL (20:15)
[2017-09-20] MEDS ORDERED: DICYCLOMINE HCL10 MG PO (20:15)
[2017-09-20] MEDS ORDERED: AMITRIPTYLINE H25 MG ORAL (20:17)
[2017-09-20] MEDS ORDERED: Heparin 1000 units/ml 1ml Vial INJ SCH (20:45)
--- NOTE | 2017-09-21 03:00 | Progress Note ---
DATE: 09/19/2017 NOTE: POOR AUDIO PSYCHOTHERAPY CONSULTATION PROGRESS NOTE TREATING ATTENDING PHYSICIAN: Ernesto Magallon D.O. SUBJECTIVE: The patient is a 52-year-old female patient. She has history of depression and helplessness. The patient has been depressed due to her current medical condition today. the patient . The patient was discussing her feelings of helplessness with peers. This clinician assessed this patient and assessed the patient's mental status. MENTAL STATUS EXAMINATION: The patient is alert and oriented to person, place, time, and situation. Her mood is flat. Affect is blunted. Thought process is very . The patient has poor attention and concentration. Poor insight, judgment, and impulse control. PLAN: Assessed this patient. Provide the patient with reality orientation. Provide the patient with . Encouraging the patient to participate in treatment milieu, addressing the patient's helplessness and hopelessness, and addressing her feelings of frustration due to her current medical condition. . Continue with behavioral management. This clinician has reviewed the patient's chart and discussed the treatment with treatment team. Víctor Woo PsyD. : Luis Miguel JOB#: [id number] CC:
--- NOTE | 2017-09-21 09:30 | Progress Note ---
DATE: 09/20/2017 SUBJECTIVE: The patient is a 52-year-old female patient who is complaining of intractable back pain to the hospital she has agitation, mood lability, and anxiety very irritable. Mood labile. That is why, her attending has requested daily psychiatric consultation. MENTAL STATUS EXAMINATION: The patient is a 52-year-old female with psychomotor agitation. Mood is irritable and agitated. Affect guarded and restricted. Intellect poor. Mood, depressed and anxious. Motor activity, psychomotor agitation. Attention span is poor. Orientation x2. Speech is pressured. Thought process, disorganized and illogical. Thought content, auditory hallucinations and paranoid delusions. Insight and judgment is poor. DIAGNOSIS: Major depressive disorder, severe, recurrent, without psychotic features, rule out generalized anxiety disorder. PLAN: Continue treatment with Cymbalta 30 mg a day, Neurontin 300 mg three times a day. Provided 18 to 20 minutes of supportive psychotherapy. Chart reviewed. Discussed with staff. Seen and assessed and her room. Amanda Crews M.D. DR: YEFRI JOB#: [id number] CC:
--- NOTE | 2017-09-22 05:01 | Progress Note ---
DATE: 09/20/2017 NOTE: POOR AUDIO PSYCHOTHERAPY CONSULTATION PROGRESS NOTE SUBJECTIVE: The patient is a 52-year-old female patient with history of depression and anxiety. The patient is feeling very calculative today. medical condition states that due to her tremors and due to her spasms, the patient is feeling very helpless, does not believe that there is a viable source for her to help her. For these reasons, she remains very helpless. PLAN: This clinician assessed this patient and assessed the patient's mental status. Provide the patient with supportive psychotherapy and provide the patient with reality orientation. Encouraging the patient to participate in treatment milieu. on increasing patient's depression. Continue with behavioral management. This clinician has reviewed the patient's chart and discussed the treatment with treatment team. Víctor Woo PsyD. DR: KAY JOB#: [id number] CC:
--- NOTE | 2017-09-22 09:19 | Discharge Summary ---
Discharge Summary Discharge Summary Discharge Summary DATE OF ADMISSION: 09/16/2017 DATE OF DISCHARGE: 09/20/2017 REASON FOR ADMISSION: 52 years old female with past medical history of chronic back pain, failed back surgery syndrome, hypertension ,depression, opioid dependency , chronic pain syndrome, cauda equina syndrome, presented to emergency department with uncontrolled back pain. Prior to arrival to emergency department, she took Dilaudid, morphine and muscle relaxant without much relief. Patient reported being uncomfortable. She reported the pain being ongoing and out of control. She denied new symptoms or complaints. She denied recent illness. She denied fever and chills. Patient admitted with diagnosis of intractable back pain, acute on chronic; history of cauda equina syndrome, hypertension, depression, chronic pain syndrome, opioid dependence. CONSULTANTS: neurologist Dr. Murphy pulmonary Dr. Tom ID specialist Dr. Michel GI specialist Dr. Haines psychiatrist Dr. Crews pain specialist Dr. Singh [facility]: Patient admitted. Pain specialist consult was requested. Pain management provided as per pain specialist recommendations. Neurologist seen and evaluated. Patient started on Lidoderm patch with some relief. Patient started on Elavil and muscle relaxant. Pain was better controlled no new neurological symptoms were presented. Right Leg spasms initially present, completely resolved. Patient was working with physical and occupational therapists. Fall precautions were maintained. Cardiopulmonary status remained stable. No cardiac complaints. Pulse oximetry stable opn room air. Blood pressure was closely monitored. Blood pressure was managed with beta gustavo and calcium channel gustavo, and remained stable. Psychiatrist closely followed. Psychiatrist diagnosed patient with generalized anxiety disorder and probable major depressive disorder, severe and recurrent. Psychiatrist optimized psychiatric medication regimen. Supportive psychotherapy and reality orientation was provided. Patient also complained of abdominal pain in conjunction with low back pain. GI specialist seen and evaluated the patient. Abdominal pain was likely secondary to back pain. Symptomatic treatment provided, including Zofran and Bentyl. Hemoglobin and hematocrit were closely monitored , remained stable. GI recommended outpatient GI procedure. ID specialist closely followed. Patient had no evidence of infection, no fevers , no leucocytosis. Infectious disease specialist recommended to keep patient off antibiotics and closely observe. With multi-modality pain management and physical and occupational therapy, patient clinically improved. Patient was stable for discharge home with home health services for physical and occupational therapy. FINAL DIAGNOSES: Intractable back pain, acute on chronic Chronic pain syndrome Opioid dependency Lumbar DDD Lumbar spondylosis Lumbar herniated disc Lumbar radiculopathy Failed back surgery syndrome History of cauda equina syndrome Hypertension Generalized anxiety disorder Probable major depressive disorder, severe and recurrent Abdominal pain secondary to back pain DISCHARGE MEDICATIONS: See Medication Reconciliation list. DISCHARGE INSTRUCTIONS: Patient was discharged home with home health services. Follow-up with primary care provider and pain specialist. I have been assigned to dictate discharge summary for this account. I was not involved in the patient's management. Ness Junior NP September 22, 2017 09:19
== END 2017-09-20 20:53 | disposition home health service (06) | DRG 92 ==
LOC: EMR 13:21 → 4E 14:40 → EDBEDREQ 16:34
DX: G89.4 Chronic pain syndrome (principal); G83.4 Cauda equina syndrome; F11.20 Opioid dependence, uncomplicated; M47.896 Other spondylosis, lumbar region; D64.9 Anemia, unspecified; I10 Essential (primary) hypertension; F32.9 Major depressive disorder, single episode, unspecified; M51.16 Intervertebral disc disorders with radiculopathy, lumbar region; F41.1 Generalized anxiety disorder; R10.9 Unspecified abdominal pain; Z88.6 Allergy status to analgesic agent; Z88.8 Allergy status to other drugs, medicaments and biological substances; Z86.718 Personal history of other venous thrombosis and embolism; H54.61 Unqualified visual loss, right eye, normal vision left eye
CPT/HCPCS: 36415; 80048; 80053; 84443; 85025; 87081; 99285

== ENCOUNTER 2017-11-09 11:37 | Emergency (ER) | payer MEDICARE, MEDICAID ==
[~2017-11-09] VITALS: Ht 160 cm; Wt 65.8 kg
[~2017-11-09 11:37] MED LIST changes: +ACETAMINOPHEN325 M1 ORAL; +AMITRIPTYLINE H25 MG ORAL; +CYMBALTA30 MG ORAL; +DICYCLOMINE HCL10 MG PO
[2017-11-09 12:06] VITALS: BP 157/83
[2017-11-09] MEDS ORDERED: LORazepam Inj 2mg/ml 1ml IV ONE ×2 (12:15→14:00)
--- NOTE | 2017-11-09 12:26 | Emergency Room Report ---
History of Present Illness General Chief Complaint: Back Pain-No Injury Source: Medical Record (Ceasar Grewal) Present Illness HPI 52-year-old female patient presents ER complaining of burning left-sided low back pain 1 day. Reports burning with urination during this time. Reports history of similar symptoms in the past, states it feels like a muscle spasm, states that she normally takes lorazepam for the symptoms. Reports was unable to fill her prescription of lorazepam because her doctor is out of town. Also taking Soma and Dilaudid for pain control. Denies radiation of pain symptoms. Denies rash. Denies history of shingles. Denies vaginal discharge. Denies hematuria. Denies chest pain, shortness of breath, abdominal pain. Reports history of catheter with to help with urination when having spasm symptoms. Also on xarelto for history of DVT. Denies calf pain. Reports took soma and Dilaudid for pain. Previously seen in this ER for similar symptoms. Denies recent sexual activity. Denies recent trauma. Normally moves via wheelchair, does not ambulate independently. (Ceasar Grewal) Allergies: Coded Allergies: IRON (Verified Allergy, Unknown, Rash, 08/09/17) had nausea, vomiting and rashes METHADONE (Verified Allergy, Unknown, 06/04/17) MORPHINE (Verified Allergy, Unknown, 09/06/17) PREGABALIN (Verified Allergy, Unknown, 06/04/17) Patient History Past Medical History: see triage record Reviewed Nursing Documentation: PMH: Agreed; PSxH: Agreed (Ceasar Grewal) Nursing Documentation-PMH Past Medical History: No History, Except For Hx Cardiac Problems: Yes Hx Hypertension: Yes Hx Cancer: No Hx Gastrointestinal Problems: Yes Hx Neurological Problems: Yes - foot drop, back surgery Hx Spinal Cord Injury: Yes Hx Numbness: Yes Hx Neurologic Surgery: Yes - 2009 Spinal surgery (Ceasar Grewal) Review of Systems All Other Systems: negative except mentioned in HPI (Ceasar Grewal) Physical Exam Vital Signs Date Time Temp Pulse Resp B/P (MAP) Pulse Ox O2 Delivery O2 Flow Rate FiO2 11/09/17 11:54 98.2 82 16 157/83 97 Room Air 98.2 Sp02 EP Interpretation: reviewed, normal General Appearance: well appearing, no apparent distress, alert, GCS 15, non- toxic Head: normocephalic, atraumatic Eyes: bilateral eye normal inspection, bilateral eye PERRL ENT: hearing grossly normal, normal pharynx, no angioedema, normal voice, uvula midline, moist mucus membranes Neck: full range of motion Respiratory: lungs clear, normal breath sounds, no rhonchi, no respiratory distress, no accessory muscle use, no wheezing, speaking full sentences Cardiovascular #1: regular rate, rhythm, no edema Gastrointestinal: non tender, soft, no mass, non-distended, no guarding, no rebound Genitourinary: no CVA tenderness Musculoskeletal: back normal, digits/nails normal, normal range of motion, non- tender Neurologic: alert, oriented x3, responsive, motor strength/tone normal, sensory intact, other - SLR positive Skin: no rash - the blisters, no vesicles, no shingles noted in dermatome, other - surgical scars noted on the lower back, no signs of infection (Ceasar Grewal P.AAnupam) Medical Decision Making PA Attestation Dr. Vazquez is my supervising Physician whom patient management has been discussed with. (Ceasar Grewal P.AAnupam) Diagnostic Impression: Primary Impression: Urinary tract infection Qualified Codes: N30.00 - Acute cystitis without hematuria Additional Impressions: Muscle spasm Chronic pain Qualified Codes: G89.29 - Other chronic pain ER Course Pt presents to ED c/o right low back pain, dysuria, and medication refill. DDX considered but are not limited to sprain, strain, cauda equina, muscle spasm , chronic pain, drug seeking, UTI. Low suspicion for cauda equina, no bowel or bladder incontinence. No fever, nontoxic appearing, no radiation of pain, low suspicion for epidural mass. Low suspicion for DVT or PE, negative Kavon sign, no respiratory difficulty, no cough or hemoptysis, lungs clear to auscultation. VITAL SIGNS are WNL, patient is afebrile. Mild elevation of BP, hx of HTN, will continue to monitor, no complaints of chest pain, SOB, abdominal pain, LANDERS at this time. Ordered pain medication and labs. ER COURSE: Has a history of benzo and opioid dependence. provided patient with dose of lorazepam in ER due to patient reports she has missed dosage. Patient reports that she can take morphine with Benadryl to prevent allergic reaction. States has previously taken the past. Reviewed her EMR, consistent with patient history. Will provide pain medication. Patient states unable to provide urine sample, states needs catheter to assist in provide urine. Will perform in and out catheter to assist patient in providing urine sample. History of right foot drop since back surgery. CBC and CMP unremarkable, no elevation of white blood cell count LFTs. Coagulation studies within normal limits. Urinalysis positive for nitrites and white blood cells, UTI likely, will provide treatment for patient. Provided first dose of antibiotics in the ER and was discharged home with prescription. Patient does not require admission for treatment of UTI, no intractable vomiting, abdominal pain, fever, elevation blood cell count. OK for outpatient treatment. Drink plenty of fluids. consult with Dr. Vazquez, reviewed cures report, patient has not received prescription for lorazepam. patient reports she has appointment with her doctor on the , Will provide medication for patient until able to see primary care provider and statuary painter to get refill of medication. Informed patient ER does not normally provide prescriptions. Likely acute exacerbation of chronic pain. Does not require imaging at this time. Story urinary catheter removed prior to discharge. Patient reports symptoms improved prior to discharge. patient stable for discharge home in care of her . DISCHARGE: Rx provided for Keflex Rx provided for Clonazepam At this time pt is stable for d/c to home. Patient is resting comfortably, in no acute distress, nontoxic appearing, talking without difficulty. Patient to take medications as instructed Will provide with patient care instructions and any necessary prescriptions. Care plan and follow-up instructions provided. Patient instructed to follow-up with primary care provider in 3 - 5 days. Patient questions asked and answered. Patient reports understanding and agreement to treatment plan. ER precautions given. Patient instructed to return to ER immediately for any new or worsening of symptoms including but not limited to increasing SOB, persistent fever. - Please note that this Emergency Department Report was dictated using Pingwyninspector eyeglass technology software, occasionally this can lead to erroneous entry secondary to interpretation by the dictation equipment. Labs Test 11/09/17 12:31 11/09/17 12:36 Urine Color Yellow Urine Appearance Turbid Urine pH 6 (4.5-8.0) Urine Specific [place] 1.020 (1.005-1.035) Urine Protein 2+ (NEGATIVE) Urine Glucose (UA) Negative (NEGATIVE) Urine Ketones Negative (NEGATIVE) Urine Occult Blood 3+ (NEGATIVE) Urine Nitrite Positive (NEGATIVE) Urine Bilirubin Negative (NEGATIVE) Urine Urobilinogen Normal MG/DL (0.0-1.0) Urine Leukocyte Esterase 3+ (NEGATIVE) Urine RBC 5-10 /HPF (0 - 2) Urine WBC Tntc /HPF (0 - 2) Urine Squamous Epithelial Cells Moderate /LPF (NONE/OCC) Urine Bacteria Many /HPF (NONE) White Blood Count 9.1 K/UL (4.8-10.8) Red Blood Count 4.09 M/UL (4.20-5.40) Hemoglobin 11.9 G/DL (12.0-16.0) Hematocrit 37.0 % (37.0-47.0) Mean Corpuscular Volume 90 FL (80-99) Mean Corpuscular Hemoglobin 29.1 PG (27.0-31.0) Mean Corpuscular Hemoglobin Concent 32.2 G/DL (32.0-36.0) Red Cell Distribution Width 13.1 % (11.6-14.8) Platelet Count 283 K/UL (150-450) Mean Platelet Volume 5.3 FL (6.5-10.1) Neutrophils (%) (Auto) 77.1 % (45.0-75.0) Lymphocytes (%) (Auto) 15.2 % (20.0-45.0) Monocytes (%) (Auto) 5.9 % (1.0-10.0) Eosinophils (%) (Auto) 0.8 % (0.0-3.0) Basophils (%) (Auto) 1.1 % (0.0-2.0) Prothrombin Time 10.2 SEC (9.30-11.50) Prothromb Time International Ratio 1.0 (0.9-1.1) Activated Partial Thromboplast Time 28 SEC (23-33) Sodium Level 139 MMOL/L (136-145) Potassium Level 3.9 MMOL/L (3.5-5.1) Chloride Level 107 MMOL/L (98-107) Carbon Dioxide Level 26 MMOL/L (21-32) Anion Gap 6 mmol/L (5-15) Blood Urea Nitrogen 14 mg/dL (7-18) Creatinine 0.7 MG/DL (0.55-1.30) Estimat Glomerular Filtration Rate > 60 mL/min (>60) Glucose Level 143 MG/DL (74-106) Calcium Level 8.9 MG/DL (8.5-10.1) Total Bilirubin 0.2 MG/DL (0.2-1.0) Aspartate Amino Transf (AST/SGOT) 16 U/L (15-37) Alanine Aminotransferase (ALT/SGPT) 32 U/L (12-78) Alkaline Phosphatase 195 U/L (46-116) Total Protein 7.7 G/DL (6.4-8.2) Albumin 3.5 G/DL (3.4-5.0) Globulin 4.2 g/dL Albumin/Globulin Ratio 0.8 (1.0-2.7) Lipase 70 U/L (73-393) (Ceasar Grewal) ER Course Patient discussed in detail. I agree with assessment and treatment plan. (Balbir Vazquez M.D.) Last Vital Signs Date Time Temp Pulse Resp B/P (MAP) Pulse Ox O2 Delivery O2 Flow Rate FiO2 11/09/17 11:54 98.2 82 16 157/83 97 Room Air 98.2 (Ceasar Grewal) Disposition: HOME, SELF-CARE Condition: Stable Scripts Cephalexin* (CEPHALEXIN*) 250 Mg/5 Ml Susp.recon 10 ML ORAL BID for 7 Days, #70 ML 0 Refills Prov: Ceasar Grewal 11/09/17 Clonazepam* (KLONOPIN*) 1 Mg Tablet 1 MG ORAL BID for 12 Days, #24 TAB 0 Refills Prov: Ceasar Grewal 11/09/17 Referrals: NOT CHOSEN IPA/,REFERRING (PCP) Patient Instructions: Chronic Back Pain, Muscle Cramps and Spasms, [id number] Additional Instructions: Patient instructed to follow up with primary care provider 3-5 and discuss further referral and imaging at that time. Patient instructed on rest, ice and heat. Drink plenty of fluids. Take medications as directed. Patient questions asked and answered. ER precautions given, patient instructed to return to ER immediately for any new or worsening of symptoms, including but not limited to intractable vomiting , chest pain, shortness of breath, intractable abdominal pain. Ceasar Grewal Nov 09, 2017 12:25 Balbir Vazquez M.D. Nov 09, 2017 21:48
[2017-11-09 12:53] LABS: BASOPHILS % (AUTO) 1.1 % (0.0-2.0); EOSINOPHILS % (AUTO) 0.8 % (0.0-3.0); HEMOGLOBIN 11.9 G/DL (12.0-16.0); LYMPHOCYTES % (AUTO) 15.2 % (20.0-45.0); MEAN CORPUSCULAR VOLUME 90 FL (80-99); MONOCYTES % (AUTO) 5.9 % (1.0-10.0); NEUTROPHILS % (AUTO) 77.1 % (45.0-75.0); PLATELET COUNT 283 K/UL (150-450); RED BLOOD COUNT 4.09 M/UL (4.20-5.40); RED CELL DISTRIBUTION WIDTH 13.1 % (11.6-14.8); WHITE BLOOD COUNT 9.1 K/UL (4.8-10.8)
[2017-11-09 13:02] LABS: ANION GAP 6 mmol/L (5-15); BLOOD UREA NITROGEN 14 mg/dL (7-18); CALCIUM 8.9 MG/DL (8.5-10.1); CARBON DIOXIDE 26 MMOL/L (21-32); CHLORIDE 107 MMOL/L (98-107); CREATININE 0.7 MG/DL (0.55-1.30); POTASSIUM 3.9 MMOL/L (3.5-5.1); SODIUM 139 MMOL/L (136-145)
[2017-11-09 13:09] LABS: ALANINE AMINOTRANSFERASE 32 U/L (12-78); ALBUMIN 3.5 G/DL (3.4-5.0); ALBUMIN/GLOBULIN RATIO 0.8 (1.0-2.7); ALKALINE PHOSPHATASE 195 U/L (46-116); ASPARTATE AMINO TRANSFERASE 16 U/L (15-37); BILIRUBIN,TOTAL 0.2 MG/DL (0.2-1.0)
[2017-11-09 13:17] LABS: APPEARANCE,URINE TURBID; BILIRUBIN, URINE NEGATIVE (NEGATIVE); GLUCOSE, URINE (UA) NEGATIVE (NEGATIVE); KETONES,URINE NEGATIVE (NEGATIVE); LEUKOCYTE ESTERASE ,URINE 3+ (NEGATIVE); NITRITE,URINE POSITIVE (NEGATIVE); PH,URINE 6 (4.5-8.0); PROTEIN,URINE 2+ (NEGATIVE); UROBILINOGEN,URINE NORMAL MG/DL (0.0-1.0)
[2017-11-09 13:19] LABS: COLOR,URINE YELLOW
[2017-11-09] MEDS ORDERED: DiphenhydrAMINE 50mg/ml Inj IVP ONE (13:30)
[2017-11-09] MEDS ORDERED: Cephalexin 500mg cap ORAL ONE (13:30)
[2017-11-09] MEDS ORDERED: Morphine Sulfate 4mg/ml Inj IVP ONE (13:30)
[2017-11-09] MEDS ORDERED: KLONOPIN1 MG ORAL (13:35)
[2017-11-09] MEDS ORDERED: CEPHALEXIN500 MG ORAL (13:35)
[2017-11-09] MEDS ORDERED: CEPHALEXIN250 MG/5 M ORAL (13:44)
[2017-11-09] MEDS ORDERED: Cephalexin 250 MG/5 ML SUSP 100ml ORAL ONE (13:45)
[2017-11-09] MEDS ORDERED: LORazepam Inj 2mg/ml 1ml ONE (13:58)
[2017-11-09 14:50] VITALS: BP 157/83
== END 2017-11-09 14:51 | disposition home or self-care (01) ==
LOC: EMR 12:05
DX: N39.0 Urinary tract infection, site not specified (principal); G89.29 Other chronic pain; M62.838 Other muscle spasm; I10 Essential (primary) hypertension; Z88.8 Allergy status to other drugs, medicaments and biological substances; Z88.5 Allergy status to narcotic agent
CPT/HCPCS: 36415; 80053; 81003; 83690; 85025; 85610; 85730; 87086; 87181; 96374; 96375; 96376; 99284; J1200; J2270

== ENCOUNTER 2017-11-10 09:36 | Inpatient (IN) | payer MEDICARE, MEDICAID ==
[~2017-11-10] VITALS: Ht 162.6 cm; Wt 65.8 kg
[~2017-11-10 09:36] MED LIST changes: +CEPHALEXIN250 MG/5 M ORAL; +CEPHALEXIN500 MG ORAL
[2017-11-10 09:49] VITALS: BP 168/99
[2017-11-10] MEDS ORDERED: Morphine Sulfate 4mg/ml Inj IVP ONE ×2 (10:00→11:30)
[2017-11-10] MEDS ORDERED: cefTRIAXone 1 GM in NS 55 ML IVPB ONE (10:00)
[2017-11-10] MEDS ORDERED: DiphenhydrAMINE 50mg/ml Inj IVP ONE (10:00)
[2017-11-10 10:35] LABS: BASOPHILS % (AUTO) 0.7 % (0.0-2.0); EOSINOPHILS % (AUTO) 1.2 % (0.0-3.0); HEMATOCRIT 36.1 % (37.0-47.0); HEMOGLOBIN 11.5 G/DL (12.0-16.0); LYMPHOCYTES % (AUTO) 14.9 % (20.0-45.0); MEAN CORPUSCULAR VOLUME 90 FL (80-99); MONOCYTES % (AUTO) 6.1 % (1.0-10.0); NEUTROPHILS % (AUTO) 77.2 % (45.0-75.0); PLATELET COUNT 283 K/UL (150-450); RED BLOOD COUNT 4.01 M/UL (4.20-5.40); RED CELL DISTRIBUTION WIDTH 13.3 % (11.6-14.8); WHITE BLOOD COUNT 7.4 K/UL (4.8-10.8)
[2017-11-10 10:35] LABS: APPEARANCE,URINE SLIGHTLY CLOUDY; BILIRUBIN, URINE NEGATIVE (NEGATIVE); COLOR,URINE PALE YELLOW; GLUCOSE, URINE (UA) NEGATIVE (NEGATIVE); KETONES,URINE NEGATIVE (NEGATIVE); LEUKOCYTE ESTERASE ,URINE 3+ (NEGATIVE); NITRITE,URINE NEGATIVE (NEGATIVE); PH,URINE 6 (4.5-8.0); PROTEIN,URINE 2+ (NEGATIVE); UROBILINOGEN,URINE NORMAL MG/DL (0.0-1.0)
[2017-11-10 10:52] LABS: ANION GAP 6 mmol/L (5-15); BLOOD UREA NITROGEN 15 mg/dL (7-18); CALCIUM 8.8 MG/DL (8.5-10.1); CARBON DIOXIDE 25 MMOL/L (21-32); CHLORIDE 107 MMOL/L (98-107); CREATININE 0.7 MG/DL (0.55-1.30); POTASSIUM 3.7 MMOL/L (3.5-5.1); SODIUM 138 MMOL/L (136-145)
[2017-11-10 10:56] LABS: ALANINE AMINOTRANSFERASE 27 U/L (12-78); ALBUMIN 3.3 G/DL (3.4-5.0); ALBUMIN/GLOBULIN RATIO 0.8 (1.0-2.7); ALKALINE PHOSPHATASE 192 U/L (46-116); ASPARTATE AMINO TRANSFERASE 15 U/L (15-37); BILIRUBIN,TOTAL 0.2 MG/DL (0.2-1.0)
[2017-11-10 11:53] VITALS: BP 142/75
--- NOTE | 2017-11-10 12:32 | Emergency Room Report ---
History of Present Illness General Chief Complaint: Female Urogenital Problems Source: Patient, Medical Record Present Illness HPI Patient presented emergency department today complaining of urinary retention. Patient also has chronic back pain. Patient states that she was seen here yesterday and started on oral antibiotics for UTI. Unfortunately her symptoms became worse and now she is unable to urinate. He is complaining of bladder spasm and back pain. She denies any fever nausea vomiting diarrhea or chills. Symptoms are noted to be severe. Allergies: Coded Allergies: IRON (Verified Allergy, Unknown, Rash, 08/09/17) had nausea, vomiting and rashes METHADONE (Verified Allergy, Unknown, 06/04/17) MORPHINE (Verified Allergy, Unknown, 09/06/17) PREGABALIN (Verified Allergy, Unknown, 06/04/17) Patient History Past Medical History: HTN, CAD Social History: Denies: smoking, alcohol use, drug use Reviewed Nursing Documentation: PMH: Agreed; PSxH: Agreed Nursing Documentation-PMH Past Medical History: No History, Except For Hx Cardiac Problems: Yes Hx Hypertension: Yes Hx Cancer: No Hx Gastrointestinal Problems: Yes Hx Neurological Problems: Yes - foot drop, back surgery Hx Spinal Cord Injury: Yes Hx Numbness: Yes Hx Neurologic Surgery: Yes - 2009 Spinal surgery Review of Systems All Other Systems: negative except mentioned in HPI Physical Exam Vital Signs Date Time Temp Pulse Resp B/P (MAP) Pulse Ox O2 Delivery O2 Flow Rate FiO2 11/10/17 09:46 98.2 83 18 168/99 97 Room Air 98.2 Sp02 EP Interpretation: reviewed, normal General Appearance: alert, moderate distress Head: atraumatic Eyes: bilateral eye PERRL ENT: normal ENT inspection, hearing grossly normal, normal voice Neck: normal inspection, full range of motion, supple, no bony tend Respiratory: normal inspection, lungs clear, normal breath sounds, no respiratory distress, no retraction, no wheezing Cardiovascular #1: regular rate, rhythm, no edema Gastrointestinal: normal inspection, normal bowel sounds, non tender, soft, no guarding, no hernia Genitourinary: CVA tenderness (R), CVA tenderness (L), muscle spasm - Lower back Musculoskeletal: normal inspection, back normal, normal range of motion Neurologic: normal inspection, alert, responsive, speech normal Psychiatric: judgement/insight normal, anxious Skin: normal inspection, normal color, no rash Medical Decision Making Diagnostic Impression: Primary Impression: Urinary tract infection Additional Impressions: Chronic pain Intractable back pain Urinary retention Acute urinary retention ER Course Patient presents emergency department today complaint dysuria urinary retention and back pain. Differential considerations include urine tract infection, back pain, back spasm, urinary retention just name a few.Given the severity of the patient's presentation I felt this is a highly complex patient. This patient required extensive workup. Patient laboratory workup is consistent with severe urinary tract infection. Given patient's urinary retention of felt the patient because admission to the hospital. Patient appear fairly uncomfortable received pain medications with good improvement in symptoms. Patient primary care physician is Dr. Ernesto Magallon who unfortunately is out of town. Gen. recommended patient be admitted Dr. Erin Freeman. Dr. Erin Freeman was informed the patient. Patient will be admitted to [facility] further treatment. Labs Test 11/10/17 10:12 11/10/17 10:26 White Blood Count 7.4 K/UL (4.8-10.8) Red Blood Count 4.01 M/UL (4.20-5.40) Hemoglobin 11.5 G/DL (12.0-16.0) Hematocrit 36.1 % (37.0-47.0) Mean Corpuscular Volume 90 FL (80-99) Mean Corpuscular Hemoglobin 28.7 PG (27.0-31.0) Mean Corpuscular Hemoglobin Concent 31.8 G/DL (32.0-36.0) Red Cell Distribution Width 13.3 % (11.6-14.8) Platelet Count 283 K/UL (150-450) Mean Platelet Volume 5.3 FL (6.5-10.1) Neutrophils (%) (Auto) 77.2 % (45.0-75.0) Lymphocytes (%) (Auto) 14.9 % (20.0-45.0) Monocytes (%) (Auto) 6.1 % (1.0-10.0) Eosinophils (%) (Auto) 1.2 % (0.0-3.0) Basophils (%) (Auto) 0.7 % (0.0-2.0) Sodium Level 138 MMOL/L (136-145) Potassium Level 3.7 MMOL/L (3.5-5.1) Chloride Level 107 MMOL/L (98-107) Carbon Dioxide Level 25 MMOL/L (21-32) Anion Gap 6 mmol/L (5-15) Blood Urea Nitrogen 15 mg/dL (7-18) Creatinine 0.7 MG/DL (0.55-1.30) Estimat Glomerular Filtration Rate > 60 mL/min (>60) Glucose Level 131 MG/DL (74-106) Calcium Level 8.8 MG/DL (8.5-10.1) Total Bilirubin 0.2 MG/DL (0.2-1.0) Aspartate Amino Transf (AST/SGOT) 15 U/L (15-37) Alanine Aminotransferase (ALT/SGPT) 27 U/L (12-78) Alkaline Phosphatase 192 U/L (46-116) Total Protein 7.5 G/DL (6.4-8.2) Albumin 3.3 G/DL (3.4-5.0) Globulin 4.2 g/dL Albumin/Globulin Ratio 0.8 (1.0-2.7) Lipase 67 U/L (73-393) Urine Color Pale yellow Urine Appearance Slightly cloudy Urine pH 6 (4.5-8.0) Urine Specific [place] 1.015 (1.005-1.035) Urine Protein 2+ (NEGATIVE) Urine Glucose (UA) Negative (NEGATIVE) Urine Ketones Negative (NEGATIVE) Urine Occult Blood 3+ (NEGATIVE) Urine Nitrite Negative (NEGATIVE) Urine Bilirubin Negative (NEGATIVE) Urine Urobilinogen Normal MG/DL (0.0-1.0) Urine Leukocyte Esterase 3+ (NEGATIVE) Urine RBC 2-4 /HPF (0 - 2) Urine WBC 60-80 /HPF (0 - 2) Urine Squamous Epithelial Cells Few /LPF (NONE/OCC) Urine Bacteria Few /HPF (NONE) Last Vital Signs Date Time Temp Pulse Resp B/P (MAP) Pulse Ox O2 Delivery O2 Flow Rate FiO2 11/10/17 11:57 97.6 11/10/17 11:53 88 18 142/75 97 Room Air Status: improved Disposition: ADMITTED INPATIENT Condition: Serious Referrals: NOT CHOSEN IPA/,REFERRING (PCP) Ravin Saldana MD Nov 10, 2017 12:32
[2017-11-10] MEDS ORDERED: LORazepam Inj 2mg/ml 1ml ONE (12:39)
[2017-11-10] MEDS ORDERED: LORazepam Inj 2mg/ml 1ml IV ONE (12:45)
[2017-11-10] MEDS ORDERED: DiphenhydrAMINE 50mg/ml Inj IVP PRN (13:45)
[2017-11-10] MEDS ORDERED: HYDROmorphone 4mg tab ORAL PRN (14:50)
[2017-11-10] MEDS ORDERED: HYDROmorphone 2mg tab ORAL PRN (15:40)
[2017-11-10] MEDS ORDERED: LORazepam 1mg tab ORAL PRN (15:43)
[2017-11-10 16:00] VITALS: BP 136/75
[2017-11-10] MEDS ORDERED: Heplock Flush 100 units/ml 3 ml syr INJ ONE (17:20)
--- NOTE | 2017-11-11 05:06 | Discharge Summary ---
Discharge Summary Discharge Summary _ DATE OF ADMISSION: 11/10/2017 DATE OF DISCHARGE: 11/10/2017 BRIEF HOSPITAL COURSE: Patient is a 52-year-old female, who presented to the emergency department complaining of urinary retention. She also has chronic back pain. She was seen in the emergency department the day prior and was discharged home to continue oral antibiotics for urinary tract infection. Her symptoms got worse and was unable to urinate. She was complaining of bladder spasms and back pain. She denied any fever, nausea, vomiting, diarrhea or chills. Symptoms were noted to be severe. She has medical history of hypertension and coronary artery disease, she has history of back surgery and foot drop. On evaluation at ED, blood work did not show any leukocytoses. Urinalysis with 60-80 WBC, 2-4 RBC, 3+ leukocyte esterase, negative nitrite. She was started on Rocephin. Story catheter was inserted. Patient was uncomfortable with improvement in symptoms after being given pain medications. She was admitted to medical floor. She requested pain medications to be changed to IV. Full treatment was not carried out as patient left AGAINST MEDICAL ADVICE. FINAL DIAGNOSES: Urinary tract infection Chronic pain Intractable back pain Acute urinary retention DISPOSITION: Patient left AMA. I have been assigned to dictate discharge summary on this account, and I was not involved in the patient's management. Alejandra Merchant NP Nov 11, 2017 05:05
--- NOTE | 2017-11-11 05:06 | History & Physical ---
History and Physical History & Physicial Patient left AMA before being seen Alejandra Merchant NP Nov 11, 2017 05:06
[2017-11-11] MEDS ORDERED: Xarelto 10mg tab ORAL SCH (09:00)
[2017-11-11] MEDS ORDERED: Metoprolol Succinate XL 50mg tab ORAL SCH (09:00)
--- NOTE | 2017-11-12 02:45 | History and Physical Report ---
DATE OF ADMISSION: 11/10/2017 NOTE: POOR AUDIO I am covering for Dr. Ernesto Magallon. This is Dr. Ernesto Magallon's patient. H and P since the patient left AMA before I could see the patient. So, History And Physical for this admission. The patient was originally admitted for UTI and back pain and spinal pain. The patient has a history of pain medication. The patient was agitated and restless, but I gave admission orders and I told the nurse to call Dr. Dietrich for the behavior as well as I told the nurse to call Dr. Singh for the pain medications and I also asked Dr. Dietrich and Dr. Singh to call me for the orders for the patient and I asked Dr. Singh to order pain medication. However, Dr. Singh wanted to give her p.o., but the patient wanted IV pain medication and Dr. Singh wanted to give something else, so the patient did not want to wait for that and signed against medical advice and left. Again, the patient left AMA before I could see her. Erin Villanueva M.D. DR: EB JOB#: [id number] CC:
== END 2017-11-10 17:40 | disposition left against medical advice (07) | DRG 690 ==
LOC: EMR 10:40 → 4E 10:44 → EDBEDREQ 11:24
DX: N39.0 Urinary tract infection, site not specified (principal); G89.29 Other chronic pain; M54.9 Dorsalgia, unspecified; R33.9 Retention of urine, unspecified; I10 Essential (primary) hypertension; I25.10 Atherosclerotic heart disease of native coronary artery without angina pectoris; Z53.21 Procedure and treatment not carried out due to patient leaving prior to being seen by health care provider
CPT/HCPCS: 36415; 80053; 81003; 83690; 85025; 87086; 99285

== ENCOUNTER 2017-11-13 19:35 | Emergency (ER) | payer MEDICARE, MEDICAID ==
[~2017-11-13] VITALS: Ht 160 cm; Wt 65.8 kg
[2017-11-13] MEDS ORDERED: Ketorolac 30mg Inj IV ONE (21:15)
[2017-11-13] MEDS ORDERED: Phenazopyridine 200mg tab ORAL ONE (21:30)
[2017-11-13] MEDS ORDERED: LORazepam Inj 2mg/ml 1ml IV ONE (22:15)
[2017-11-13] MEDS ORDERED: Morphine Sulfate 4mg/ml Inj IVP ONE (22:30)
[2017-11-13 22:32] LABS: APPEARANCE,URINE SLIGHTLY CLOUDY; BILIRUBIN, URINE NEGATIVE (NEGATIVE); COLOR,URINE PALE YELLOW; GLUCOSE, URINE (UA) NEGATIVE (NEGATIVE); KETONES,URINE NEGATIVE (NEGATIVE); LEUKOCYTE ESTERASE ,URINE 1+ (NEGATIVE); NITRITE,URINE NEGATIVE (NEGATIVE); PH,URINE 6 (4.5-8.0); PROTEIN,URINE NEGATIVE (NEGATIVE); UROBILINOGEN,URINE NORMAL MG/DL (0.0-1.0)
[2017-11-13] MEDS ORDERED: DiphenhydrAMINE 50mg/ml Inj IVP ONE (23:15)
[2017-11-13] MEDS ORDERED: CEPHALEXIN250 MG/5 M ORAL (23:21)
[2017-11-13 23:30] VITALS: BP 148/89
--- NOTE | 2017-11-14 00:24 | Emergency Room Report ---
History of Present Illness General Chief Complaint: Female Urogenital Problems Source: Patient, Medical Record Present Illness HPI The patient 52-year-old female who presented after increased low back pain and dysuria.. Patient gradual onset of symptoms. The patient recently been treated with oral antibiotics for urinary tract infection. Patient prior history of chronic pain. She has multiple medication allergies. Patient has previously had imaging studies performed which showed evidence of arachnoiditis as well as cauda equina syndrome. The patient has residual weakness in her right lower extremity. She's been followed by neurology as well as pain management. Allergies: Coded Allergies: IRON (Verified Allergy, Unknown, Rash, 08/09/17) had nausea, vomiting and rashes METHADONE (Verified Allergy, Unknown, 06/04/17) MORPHINE (Verified Allergy, Unknown, 09/06/17) PREGABALIN (Verified Allergy, Unknown, 06/04/17) Patient History Past Medical History: see triage record Last Menstrual Period: none Reviewed Nursing Documentation: PMH: Agreed; PSxH: Agreed Nursing Documentation-PMH Hx Cardiac Problems: Yes Hx Hypertension: Yes Hx Cancer: No Hx Gastrointestinal Problems: Yes Hx Neurological Problems: No Hx Spinal Cord Injury: Yes Hx Numbness: Yes Hx Neurologic Surgery: Yes - 2009 Spinal surgery Review of Systems All Other Systems: negative except mentioned in HPI Physical Exam Vital Signs Date Time Temp Pulse Resp B/P (MAP) Pulse Ox O2 Delivery O2 Flow Rate FiO2 11/13/17 19:55 98.7 101 18 152/91 98 Room Air 98.8 Sp02 EP Interpretation: reviewed, normal General Appearance: normal inspection, well appearing, no apparent distress, alert, GCS 15 Head: atraumatic ENT: normal ENT inspection, hearing grossly normal, normal voice Neck: normal inspection, full range of motion, supple, no bony tend Respiratory: normal inspection, lungs clear, normal breath sounds, no respiratory distress, no retraction, no wheezing Cardiovascular #1: regular rate, rhythm, no edema Gastrointestinal: normal inspection, normal bowel sounds, non tender, soft, no guarding, no hernia Genitourinary: no CVA tenderness Musculoskeletal: normal inspection, back normal, normal range of motion Neurologic: normal inspection, alert, oriented x3, responsive, speech normal, motor weakness - right leg, chronic per patient Psychiatric: normal inspection, judgement/insight normal, mood/affect normal Skin: normal inspection, normal color, no rash Medical Decision Making Diagnostic Impression: Primary Impression: Chronic back pain Additional Impression: Opioid dependence ER Course The patient presented for back pain. Differential diagnosis included but was not limited to herniated disc, cauda equina syndrome, abdominal aortic aneurysm , perforated ulcer, spinal epidural abscess, spinal stenosis, lumbar fracture, metastatic lesion, pyelonephritis. Had the patient given prescription for oral antibiotics. She is given pain medications the emergency department as well as muscle relaxants. The patient is advised to follow up with primary care doctor in 1-2 days. Patient is advised to return if any worsening condition or if any changes in status that are concerning. This report is dictated with [employer] information systems consultant software which may occasionally lead to discrepancies related to use of this software. Labs Test 11/13/17 21:50 Urine Color Pale yellow Urine Appearance Slightly cloudy Urine pH 6 (4.5-8.0) Urine Specific [place] 1.015 (1.005-1.035) Urine Protein Negative (NEGATIVE) Urine Glucose (UA) Negative (NEGATIVE) Urine Ketones Negative (NEGATIVE) Urine Occult Blood 2+ (NEGATIVE) Urine Nitrite Negative (NEGATIVE) Urine Bilirubin Negative (NEGATIVE) Urine Urobilinogen Normal MG/DL (0.0-1.0) Urine Leukocyte Esterase 1+ (NEGATIVE) Urine RBC 2-4 /HPF (0 - 2) Urine WBC 2-4 /HPF (0 - 2) Urine Squamous Epithelial Cells Many /LPF (NONE/OCC) Urine Bacteria Few /HPF (NONE) Urine HCG, Qualitative Negative (NEGATIVE) Last Vital Signs Date Time Temp Pulse Resp B/P (MAP) Pulse Ox O2 Delivery O2 Flow Rate FiO2 11/13/17 19:55 98.7 101 18 152/91 98 Room Air 98.8 Status: improved Disposition: HOME, SELF-CARE Condition: Stable Scripts Cephalexin* (CEPHALEXIN*) 250 Mg/5 Ml Susp.recon 10 ML ORAL FOUR TIMES A DAY, #100 ML 0 Refills Prov: Kyle Mcmullen MD 11/13/17 Referrals: Ernesto Magallon DO (PCP) Patient Instructions: Urinary Tract Infection Kyle Mcmullen MD Nov 14, 2017 00:24
== END 2017-11-13 23:30 | disposition home or self-care (01) ==
LOC: EMR 23:04
DX: M54.9 Dorsalgia, unspecified (principal); G89.29 Other chronic pain; F11.20 Opioid dependence, uncomplicated; R30.0 Dysuria; Z88.6 Allergy status to analgesic agent; Z88.8 Allergy status to other drugs, medicaments and biological substances; I10 Essential (primary) hypertension
CPT/HCPCS: 81003; 81025; 96374; 96375; 99283; J1200; J1885; J2270

== ENCOUNTER 2017-12-11 11:52 | Inpatient (IN) | payer MEDICARE, MEDICAID ==
[~2017-12-11] VITALS: Ht 160 cm; Wt 71.8 kg
[2017-12-11 12:17] VITALS: BP 177/112
[2017-12-11] MEDS ORDERED: Morphine Sulfate 4mg/ml Inj (IV USE ONLY) IVP ONE ×2 (13:00→14:45)
[2017-12-11] MEDS ORDERED: DiphenhydrAMINE 50mg/ml Inj IVP ONE (13:00)
[2017-12-11 14:15] VITALS: BP 156/94
--- NOTE | 2017-12-11 14:17 | Emergency Room Report ---
History of Present Illness General Chief Complaint: Pain Source: Patient Present Illness HPI This patient has a history of cauda equina syndrome. This is secondary to a complication related to a spinal surgery. She has severe spasms and chronic pain. She states that she has had increasing numbness in her legs. She states that typically the numbness is only in her feet but today is up her legs to her thighs. Also, she states that she has pain in her sacrum and typically her pain is higher in her back. She states that she did not use any of her typical pain medications to include Dilaudid and morphine. She states they are not working for her. She states she has a burning sensation in her legs. Allergies: Coded Allergies: IRON (Verified Allergy, Unknown, Rash, 08/09/17) had nausea, vomiting and rashes METHADONE (Verified Allergy, Unknown, 06/04/17) PREGABALIN (Verified Allergy, Unknown, 06/04/17) Patient History Past Medical History: see triage record, other - cauda equina Past Surgical History: hysterectomy, other - spinal fusion, colectomy Social History: Denies: smoking, alcohol use, drug use Last Menstrual Period: NA Now: No Reviewed Nursing Documentation: PMH: Agreed; PSxH: Agreed Nursing Documentation-PMH Past Medical History: No History, Except For Hx Cardiac Problems: No Hx Hypertension: Yes Hx Cancer: No Hx Gastrointestinal Problems: Yes Hx Neurological Problems: No Hx Spinal Cord Injury: Yes Hx Numbness: Yes Hx Neurologic Surgery: Yes - 2009 Spinal surgery Review of Systems All Other Systems: negative except mentioned in HPI Physical Exam Vital Signs Date Time Temp Pulse Resp B/P (MAP) Pulse Ox O2 Delivery O2 Flow Rate FiO2 12/11/17 12:07 98.2 89 20 177/112 97 Room Air 98.2 Sp02 EP Interpretation: reviewed, normal General Appearance: no apparent distress, alert, GCS 15, non-toxic Head: normocephalic, atraumatic Eyes: bilateral eye normal inspection, bilateral eye PERRL ENT: hearing grossly normal, normal pharynx, no angioedema, normal voice Neck: full range of motion, supple/symm/no masses Respiratory: chest non-tender, lungs clear, normal breath sounds, no respiratory distress, no retraction, no accessory muscle use, speaking full sentences Cardiovascular #1: regular rate, rhythm, no edema Gastrointestinal: normal bowel sounds, non tender, soft, non-distended, no guarding, no rebound Rectal: deferred Musculoskeletal: normal range of motion Neurologic: alert, oriented x3, responsive, motor strength/tone normal, sensory intact, speech normal Psychiatric: judgement/insight normal, memory normal, mood/affect normal, no suicidal/homicidal ideation Skin: normal color, no rash, warm/dry, well hydrated Medical Decision Making Diagnostic Impression: Primary Impression: Chronic back pain Additional Impression: Muscle spasm ER Course This patient is well-known to [facility]. She has a history of chronic cauda equina syndrome and unfortunately also has narcotic dependence. She has intractable pain and has progression of her tingling and numbness in her legs and a different location of her pain. Given her history of cauda equina, I did order an MRI of her lumbar spine which is pending at the time of this dictation and will be followed up by the inpatient primary physician. The patient is admitted for intractable pain and for further monitoring. Laboratory Tests Test 12/13/17 05:30 12/14/17 05:45 White Blood Count 7.3 K/UL (4.8-10.8) 7.4 K/UL (4.8-10.8) Red Blood Count 3.85 M/UL (4.20-5.40) L 3.87 M/UL (4.20-5.40) L Hemoglobin 11.2 G/DL (12.0-16.0) L 11.4 G/DL (12.0-16.0) L Hematocrit 34.6 % (37.0-47.0) L 34.9 % (37.0-47.0) L Mean Corpuscular Volume 90 FL (80-99) 90 FL (80-99) Mean Corpuscular Hemoglobin 29.1 PG (27.0-31.0) 29.4 PG (27.0-31.0) Mean Corpuscular Hemoglobin Concent 32.5 G/DL (32.0-36.0) 32.6 G/DL (32.0-36.0) Red Cell Distribution Width 12.9 % (11.6-14.8) 12.7 % (11.6-14.8) Platelet Count 291 K/UL (150-450) 285 K/UL (150-450) Mean Platelet Volume 5.0 FL (6.5-10.1) L 5.2 FL (6.5-10.1) L Neutrophils (%) (Auto) 66.9 % (45.0-75.0) 69.3 % (45.0-75.0) Lymphocytes (%) (Auto) 26.4 % (20.0-45.0) 20.9 % (20.0-45.0) Monocytes (%) (Auto) 4.2 % (1.0-10.0) 6.8 % (1.0-10.0) Eosinophils (%) (Auto) 1.4 % (0.0-3.0) 1.9 % (0.0-3.0) Basophils (%) (Auto) 1.1 % (0.0-2.0) 1.2 % (0.0-2.0) Sodium Level 141 MMOL/L (136-145) 142 MMOL/L (136-145) Potassium Level 3.5 MMOL/L (3.5-5.1) 4.0 MMOL/L (3.5-5.1) Chloride Level 107 MMOL/L (98-107) 106 MMOL/L (98-107) Carbon Dioxide Level 28 MMOL/L (21-32) 28 MMOL/L (21-32) Anion Gap 6 mmol/L (5-15) 8 mmol/L (5-15) Blood Urea Nitrogen 13 mg/dL (7-18) 17 mg/dL (7-18) Creatinine 0.8 MG/DL (0.55-1.30) 0.8 MG/DL (0.55-1.30) Estimate Glomerular Filtration Rate > 60 mL/min (>60) > 60 mL/min (>60) Glucose Level 141 MG/DL (74-106) H 111 MG/DL (74-106) H Calcium Level 8.8 MG/DL (8.5-10.1) 8.9 MG/DL (8.5-10.1) Iron Level 37 ug/dL (50-175) L Total Iron Binding Capacity 343 ug/dL (250-450) Percent Iron Saturation 11 % (15-50) L Unsaturated Iron Binding 306 ug/dL (112-346) Vitamin B12 Level 426 PG/ML (193-986) Folate 4.9 NG/ML (8.6-58.9) L Last Vital Signs Date Time Temp Pulse Resp B/P (MAP) Pulse Ox O2 Delivery O2 Flow Rate FiO2 12/11/17 13:25 98.2 12/11/17 12:17 20 177/112 97 Room Air 12/11/17 12:07 89 Disposition: ADMITTED INPATIENT Condition: Stable Referrals: Ernesto Magallon DO (PCP) Ginny Santiago DO Dec 11, 2017 14:17
[2017-12-11 15:47] LABS: BASOPHILS % (AUTO) 0.6 % (0.0-2.0); EOSINOPHILS % (AUTO) 0.5 % (0.0-3.0); HEMATOCRIT 42.6 % (37.0-47.0); HEMOGLOBIN 13.9 G/DL (12.0-16.0); LYMPHOCYTES % (AUTO) 20.2 % (20.0-45.0); MEAN CORPUSCULAR VOLUME 90 FL (80-99); MONOCYTES % (AUTO) 5.7 % (1.0-10.0); PLATELET COUNT 346 K/UL (150-450); RED BLOOD COUNT 4.75 M/UL (4.20-5.40); RED CELL DISTRIBUTION WIDTH 12.8 % (11.6-14.8); WHITE BLOOD COUNT 8.5 K/UL (4.8-10.8)
[2017-12-11 16:00] VITALS: BP 157/93
[2017-12-11 16:19] LABS: ANION GAP 12 mmol/L (5-15); BLOOD UREA NITROGEN 9 mg/dL (7-18); CALCIUM 9.4 MG/DL (8.5-10.1); CARBON DIOXIDE 23 MMOL/L (21-32); CHLORIDE 105 MMOL/L (98-107); CREATININE 0.6 MG/DL (0.55-1.30); POTASSIUM 4.6 MMOL/L (3.5-5.1); SODIUM 140 MMOL/L (136-145)
[2017-12-11 16:24] LABS: ALANINE AMINOTRANSFERASE 22 U/L (12-78); ALBUMIN 3.8 G/DL (3.4-5.0); ALBUMIN/GLOBULIN RATIO 0.9 (1.0-2.7); ALKALINE PHOSPHATASE 213 U/L (46-116); ASPARTATE AMINO TRANSFERASE 21 U/L (15-37); BILIRUBIN,TOTAL 0.4 MG/DL (0.2-1.0)
[2017-12-11 17:00] VITALS: BP 172/100
[2017-12-11] MEDS ORDERED: Mylanta II UD 30ml ORAL PRN (18:15)
[2017-12-11] MEDS: DiphenhydrAMINE 50mg/ml Inj IM PRN (18:28)
[2017-12-11] MEDS: Morphine Sulfate 2mg/ml Inj(IV/IM USE ONLY) IVP PRN ×2 (18:30→22:35)
[2017-12-11] MEDS ORDERED: Morphine Sulfate 4mg/ml Inj (IV USE ONLY) IVP PRN (18:45)
[2017-12-11] MEDS: LORazepam Inj 2mg/ml 1ml IV PRN (19:57)
[2017-12-11 20:00] VITALS: BP 156/97
[2017-12-11] MEDS ORDERED: Heparin 5000 units/ml inj SUBQ SCH (21:00)
[2017-12-11] MEDS: Heparin 5000 units/ml inj SUBQ SCH (21:37)
[2017-12-12] VITALS: BP 165/103
[2017-12-12] MEDS: DiphenhydrAMINE 50mg/ml Inj IM PRN ×3 (00:32→13:20)
[2017-12-12] MEDS: Morphine Sulfate 2mg/ml Inj(IV/IM USE ONLY) IVP PRN (02:45)
[2017-12-12] MEDS: LORazepam Inj 2mg/ml 1ml IV PRN ×5 (03:54→22:28)
[2017-12-12 04:00] VITALS: BP 139/92
[2017-12-12 08:00] VITALS: BP 174/111
[2017-12-12] MEDS: Heparin 5000 units/ml inj SUBQ SCH ×2 (08:19→21:04)
[2017-12-12 08:41] LABS: BASOPHILS % (AUTO) 0.7 % (0.0-2.0); EOSINOPHILS % (AUTO) 1.9 % (0.0-3.0); HEMATOCRIT 36.8 % (37.0-47.0); HEMOGLOBIN 11.7 G/DL (12.0-16.0); LYMPHOCYTES % (AUTO) 32.4 % (20.0-45.0); MEAN CORPUSCULAR VOLUME 90 FL (80-99); MONOCYTES % (AUTO) 7.4 % (1.0-10.0); NEUTROPHILS % (AUTO) 57.6 % (45.0-75.0); PLATELET COUNT 308 K/UL (150-450); RED CELL DISTRIBUTION WIDTH 12.7 % (11.6-14.8)
[2017-12-12 09:14] LABS: ALANINE AMINOTRANSFERASE 22 U/L (12-78); ALBUMIN 3.2 G/DL (3.4-5.0); ALBUMIN/GLOBULIN RATIO 0.8 (1.0-2.7); ALKALINE PHOSPHATASE 189 U/L (46-116); ANION GAP 6 mmol/L (5-15); ASPARTATE AMINO TRANSFERASE 12 U/L (15-37); BILIRUBIN,TOTAL 0.3 MG/DL (0.2-1.0); BLOOD UREA NITROGEN 13 mg/dL (7-18); CALCIUM 8.8 MG/DL (8.5-10.1); CARBON DIOXIDE 29 MMOL/L (21-32); CHLORIDE 108 MMOL/L (98-107); CREATININE 0.9 MG/DL (0.55-1.30); POTASSIUM 3.7 MMOL/L (3.5-5.1); SODIUM 143 MMOL/L (136-145)
--- NOTE | 2017-12-12 10:04 | General Progress Note ---
Assessment/Plan Assessment/Plan (1) Lumbar DDD (2) Lumbar spondylosis (4) Lumbar Herniated disc (5) Lumbar Radiculopathy (6) FBSS Patient to be continued on Ativan increased to 1mg IV Q4H PRN anxiety and Morphine IV, We will start Valium 5mg PO 1 tab Q6H PRN muscle spasm, Morphine ER 15mg PO 1 tab Q8H ATC and Dilaudid 4mg PO 1 tab Q4H PRN severe pain. D/w Dr. Singh and he concurred. Subjective Date patient seen: Dec 12, 2017 Time patient seen: 10:00 - am Allergies: Coded Allergies: IRON (Verified Allergy, Unknown, Rash, 08/09/17) had nausea, vomiting and rashes METHADONE (Verified Allergy, Unknown, 06/04/17) PREGABALIN (Verified Allergy, Unknown, 06/04/17) Subjective REVIEW OF SYSTEMS: Denies rash, fever, chills, sweating, dizziness, drowsiness, blurred vision, sore throat, or change in her weight. No shortness of breath or chest pain. No nausea, vomiting, diarrhea, or blood in stool or urine. No bowel or bladder incontinence. No dysuria. She is complaining of low back pain. SUBJECTIVE: Patient is a known patient from prior admissions and has been admitted under the care of Dr. Magallon due to severe pain in her lower back which is chronic as per patient. We were consulted so patient has adequate pain control while here in the hospital. Objective Last 24 Hour Vital Signs Date Time Temp Pulse Resp B/P (MAP) Pulse Ox O2 Delivery O2 Flow Rate FiO2 12/12/17 08:41 174/111 12/12/17 04:00 99.3 94 18 139/92 (108) 97 99.3 12/12/17 00:24 165/103 12/12/17 00:00 98.8 95 18 165/103 (123) 95 98.8 12/11/17 21:00 Room Air 12/11/17 20:00 99.3 92 19 156/97 (116) 97 99.3 12/11/17 19:51 Room Air 12/11/17 18:30 98.7 12/11/17 18:30 98.7 12/11/17 17:00 98.4 81 19 172/100 (124) 98.4 12/11/17 16:59 98.7 69 14 157/93 100 Room Air 98.7 12/11/17 16:00 98.7 69 14 157/93 100 Room Air 98.7 12/11/17 15:15 98.7 12/11/17 14:45 98.2 12/11/17 14:15 98.5 91 14 156/94 100 Room Air 98.5 12/11/17 13:55 98.2 12/11/17 13:25 98.2 12/11/17 12:17 98.2 20 177/112 97 Room Air 98.2 12/11/17 12:07 98.2 89 20 177/112 97 Room Air 98.2 Intake and Output 12/11/17 12/12/17 19:00 07:00 Intake Total 0 ml 250 ml Balance 0 ml 250 ml Intake Oral 0 ml 250 ml Laboratory Tests 12/11/17 15:25: White Blood Count 8.5, Red Blood Count 4.75, Hemoglobin 13.9, Hematocrit 42.6, Mean Corpuscular Volume 90, Mean Corpuscular Hemoglobin 29.3, Mean Corpuscular Hemoglobin Concent 32.6, Red Cell Distribution Width 12.8, Platelet Count 346, Mean Platelet Volume 5.3L, Neutrophils (%) (Auto) 73.0, Lymphocytes (%) (Auto) 20.2, Monocytes (%) (Auto) 5.7, Eosinophils (%) (Auto) 0.5, Basophils (%) (Auto ) 0.6, Sodium Level 140, Potassium Level 4.6, Chloride Level 105, Carbon Dioxide Level 23, Anion Gap 12, Blood Urea Nitrogen 9, Creatinine 0.6, Estimat Glomerular Filtration Rate > 60, Glucose Level 95, Calcium Level 9.4, Total Bilirubin 0.4, Aspartate Amino Transf (AST/SGOT) 21, Alanine Aminotransferase ( ALT/SGPT) 22, Alkaline Phosphatase 213H, Total Protein 8.0, Albumin 3.8, Globulin 4.2, Albumin/Globulin Ratio 0.9L 12/12/17 08:25: White Blood Count 5.0, Red Blood Count 4.10L, Hemoglobin 11.7L, Hematocrit 36.8L , Mean Corpuscular Volume 90, Mean Corpuscular Hemoglobin 28.6, Mean Corpuscular Hemoglobin Concent 31.9L, Red Cell Distribution Width 12.7, Platelet Count 308, Mean Platelet Volume 4.7L, Neutrophils (%) (Auto) 57.6, Lymphocytes (%) (Auto) 32.4, Monocytes (%) (Auto) 7.4, Eosinophils (%) (Auto) 1.9, Basophils (%) (Auto) 0.7, Sodium Level 143, Potassium Level 3.7, Chloride Level 108H, Carbon Dioxide Level 29, Anion Gap 6, Blood Urea Nitrogen 13, Creatinine 0.9, Estimat Glomerular Filtration Rate > 60, Glucose Level 147H, Calcium Level 8.8, Total Bilirubin 0.3, Aspartate Amino Transf (AST/SGOT) 12L, Alanine Aminotransferase (ALT/SGPT) 22, Alkaline Phosphatase 189H, Total Protein 7.3, Albumin 3.2L, Globulin 4.1, Albumin/Globulin Ratio 0.8L, Thyroid Stimulating Hormone (TSH) 2.179 Height (Feet): 5 Height (Inches): 3.00 Weight (Pounds): 145 Objective GENERAL: Alert, awake, and oriented x3. HEENT: PERRLA on the left. On the right, prosthetic eye noted. NECK: Range of motion is full in all directions. LUNGS: Clear. HEART: Regular. ABDOMEN: Tenderness to palpation. BACK: Range of motion is decreased in flexion and extension with surgical scar noted. Tenderness to palpation. EXTREMITIES: Upper and lower extremity range of motion is decreased due to the patient's condition. No cyanosis. No clubbing. Sensory is reduced. Reflexes are not obtainable. No adenopathy. Tal Hewitt Dec 12, 2017 10:04
[2017-12-12] MEDS ORDERED: HYDROmorphone 4mg tab ORAL PRN (10:32)
--- NOTE | 2017-12-12 10:49 | General Progress Note ---
Assessment/Plan Problem List: (1) Chronic back pain ICD Codes: M54.9 - Dorsalgia, unspecified; G89.29 - Other chronic pain SNOMED: 516584475 (2) Opioid dependence ICD Codes: F11.20 - Opioid dependence, uncomplicated SNOMED: 27751843 (3) Anxiety ICD Codes: F41.9 - Anxiety disorder, unspecified SNOMED: 61631105 (4) abdominal pain (5) Anemia ICD Codes: D64.9 - Anemia, unspecified SNOMED: 479432960 (6) HTN (hypertension) ICD Codes: I10 - Essential (primary) hypertension SNOMED: 15413662 Assessment/Plan anemia work up bowel regimen pain control will need EGD and colonoscopy when more stable Subjective ROS Limited/Unobtainable: Yes Allergies: Coded Allergies: IRON (Verified Allergy, Unknown, Rash, 08/09/17) had nausea, vomiting and rashes METHADONE (Verified Allergy, Unknown, 06/04/17) MORPHINE (Verified Allergy, Unknown, 09/06/17) PREGABALIN (Verified Allergy, Unknown, 06/04/17) Subjective abd pain Objective Last 24 Hour Vital Signs Date Time Temp Pulse Resp B/P (MAP) Pulse Ox O2 Delivery O2 Flow Rate FiO2 12/12/17 08:41 174/111 12/12/17 04:00 99.3 94 18 139/92 (108) 97 99.3 12/12/17 00:24 165/103 12/12/17 00:00 98.8 95 18 165/103 (123) 95 98.8 12/11/17 21:00 Room Air 12/11/17 20:00 99.3 92 19 156/97 (116) 97 99.3 12/11/17 19:51 Room Air 12/11/17 18:30 98.7 12/11/17 18:30 98.7 12/11/17 17:00 98.4 81 19 172/100 (124) 98.4 12/11/17 16:59 98.7 69 14 157/93 100 Room Air 98.7 12/11/17 16:00 98.7 69 14 157/93 100 Room Air 98.7 12/11/17 15:15 98.7 12/11/17 14:45 98.2 12/11/17 14:15 98.5 91 14 156/94 100 Room Air 98.5 12/11/17 13:55 98.2 12/11/17 13:25 98.2 12/11/17 12:17 98.2 20 177/112 97 Room Air 98.2 12/11/17 12:07 98.2 89 20 177/112 97 Room Air 98.2 Intake and Output 12/11/17 12/12/17 19:00 07:00 Intake Total 0 ml 250 ml Balance 0 ml 250 ml Intake Oral 0 ml 250 ml Laboratory Tests 12/11/17 15:25: White Blood Count 8.5, Red Blood Count 4.75, Hemoglobin 13.9, Hematocrit 42.6, Mean Corpuscular Volume 90, Mean Corpuscular Hemoglobin 29.3, Mean Corpuscular Hemoglobin Concent 32.6, Red Cell Distribution Width 12.8, Platelet Count 346, Mean Platelet Volume 5.3L, Neutrophils (%) (Auto) 73.0, Lymphocytes (%) (Auto) 20.2, Monocytes (%) (Auto) 5.7, Eosinophils (%) (Auto) 0.5, Basophils (%) (Auto ) 0.6, Sodium Level 140, Potassium Level 4.6, Chloride Level 105, Carbon Dioxide Level 23, Anion Gap 12, Blood Urea Nitrogen 9, Creatinine 0.6, Estimat Glomerular Filtration Rate > 60, Glucose Level 95, Calcium Level 9.4, Total Bilirubin 0.4, Aspartate Amino Transf (AST/SGOT) 21, Alanine Aminotransferase ( ALT/SGPT) 22, Alkaline Phosphatase 213H, Total Protein 8.0, Albumin 3.8, Globulin 4.2, Albumin/Globulin Ratio 0.9L 12/12/17 08:25: White Blood Count 5.0, Red Blood Count 4.10L, Hemoglobin 11.7L, Hematocrit 36.8L , Mean Corpuscular Volume 90, Mean Corpuscular Hemoglobin 28.6, Mean Corpuscular Hemoglobin Concent 31.9L, Red Cell Distribution Width 12.7, Platelet Count 308, Mean Platelet Volume 4.7L, Neutrophils (%) (Auto) 57.6, Lymphocytes (%) (Auto) 32.4, Monocytes (%) (Auto) 7.4, Eosinophils (%) (Auto) 1.9, Basophils (%) (Auto) 0.7, Sodium Level 143, Potassium Level 3.7, Chloride Level 108H, Carbon Dioxide Level 29, Anion Gap 6, Blood Urea Nitrogen 13, Creatinine 0.9, Estimat Glomerular Filtration Rate > 60, Glucose Level 147H, Calcium Level 8.8, Total Bilirubin 0.3, Aspartate Amino Transf (AST/SGOT) 12L, Alanine Aminotransferase (ALT/SGPT) 22, Alkaline Phosphatase 189H, Total Protein 7.3, Albumin 3.2L, Globulin 4.1, Albumin/Globulin Ratio 0.8L, Thyroid Stimulating Hormone (TSH) 2.179 Height (Feet): 5 Height (Inches): 3.00 Weight (Pounds): 145 General Appearance: alert EENT: normal ENT inspection Neck: normal alignment Cardiovascular: normal rate Respiratory/Chest: decreased breath sounds Abdomen: normal bowel sounds, non tender, soft Extremities: non-tender Harley Haines MD Dec 12, 2017 10:49
[2017-12-12] MEDS: MS Contin 15mg tab ORAL SCH ×2 (11:00→18:24)
[2017-12-12 12:00] VITALS: BP 166/106
[2017-12-12] MEDS: Morphine Sulfate 4mg/ml Inj (IV USE ONLY) IVP PRN ×3 (12:18→21:02)
[2017-12-12 16:00] VITALS: BP 181/115
--- NOTE | 2017-12-12 17:15 | History and Physical Report ---
DATE OF ADMISSION: 12/11/2017 APPROXIMATE TIME: 8:00 a.m. CONSULTANTS: 1. Adam Tom M.D. 2. Ellis Angeles M.D. 3. Armani Singh M.D. 4. Harley Haines M.D. CHIEF COMPLAINT: Intractable pain, diarrhea and muscle spasm. BRIEF HISTORY: This is a 52-year-old female who lives at home, with a history of Shayna quinine who presents with two days of increased diarrhea, also having intractable pain, lower extremity weakness and numbness, below both knees slightly. The patient came to [facility], diagnosed with above, admitted to medical floor for further treatment. Currently, she is slightly anxious 7/10 bilateral general pain, no complaint otherwise. REVIEW OF SYSTEMS: No chest pain. Slight short of breath. No nausea or vomiting. Slight diarrhea. PAST MEDICAL HISTORY: Cauda equina syndrome and muscle spasm. PAST SURGICAL HISTORY: Hysterectomy and right eye surgery and spinal fusion. ALLERGIES: Methadone, Lyrica, and tramadol. SOCIAL HISTORY: Positive smoke. Occasional alcohol. No intravenous drug abuse. FAMILY HISTORY: Noncontributory. PHYSICAL EXAMINATION: GENERAL: Slightly anxious in bed, oriented x3, no acute distress. VITAL SIGNS: Temperature is 99 degrees, pulse 94, respirations 18, and blood pressure 139/92. CARDIOVASCULAR: No murmur. LUNGS: Clear and distant. ABDOMEN: Bowel sounds positive. Nontender. Nondistended. EXTREMITIES: No cyanosis, clubbing or edema. NEUROLOGIC: The patient moves all extremities, slightly weak. Bilateral lower extremity slightly numbness below both knee. LABORATORY AND DIAGNOSTIC DATA: CBC is normal. BMP shows alkaline phosphatase 213, otherwise normal. MEDICATIONS: Heparin, Catapres, morphine, diphenhydramine, polyethylene glycol, Zofran, zolpidem and morphine. ASSESSMENT: 1. Intractable pain. 2. Muscle spasm. 3. Cauda equina. 4. Diarrhea. PLAN: 1. Continue previous medications. 2. Pain control. 3. OT/PT. 4. Dietary evaluation. 5. CBC and BMP in the morning. 6. Dr. Tom, Dr. Angeles, Dr. Singh, and Dr. Haines to consult. Ernesto Magallon D.O. DR: DARIN JOB#: [id number] CC:
[2017-12-12] MEDS: Docusate 100mg cap ORAL SCH (18:18)
[2017-12-12 20:00] VITALS: BP 172/102
[2017-12-12] MEDS: DiphenhydrAMINE 50mg/ml Inj IVP PRN (20:01)
[2017-12-13] VITALS (7 sets, daily range): BP systolic 137–192; BP diastolic 97–117
[2017-12-13] MEDS: Zolpidem 5mg tab ORAL PRN (01:04)
[2017-12-13] MEDS: Morphine Sulfate 4mg/ml Inj (IV USE ONLY) IVP PRN ×2 (01:06→05:20)
[2017-12-13] MEDS: MS Contin 15mg tab ORAL SCH ×4 (02:36→19:00)
[2017-12-13] MEDS: LORazepam Inj 2mg/ml 1ml IV PRN ×4 (02:38→19:02)
[2017-12-13] MEDS: DiphenhydrAMINE 50mg/ml Inj IVP PRN (05:19)
[2017-12-13 05:53] LABS: BASOPHILS % (AUTO) 1.1 % (0.0-2.0); EOSINOPHILS % (AUTO) 1.4 % (0.0-3.0); HEMATOCRIT 34.6 % (37.0-47.0); HEMOGLOBIN 11.2 G/DL (12.0-16.0); LYMPHOCYTES % (AUTO) 26.4 % (20.0-45.0); MEAN CORPUSCULAR VOLUME 90 FL (80-99); MONOCYTES % (AUTO) 4.2 % (1.0-10.0); NEUTROPHILS % (AUTO) 66.9 % (45.0-75.0); PLATELET COUNT 291 K/UL (150-450); RED BLOOD COUNT 3.85 M/UL (4.20-5.40); RED CELL DISTRIBUTION WIDTH 12.9 % (11.6-14.8); WHITE BLOOD COUNT 7.3 K/UL (4.8-10.8)
[2017-12-13 06:07] LABS: ANION GAP 6 mmol/L (5-15); BLOOD UREA NITROGEN 13 mg/dL (7-18); CALCIUM 8.8 MG/DL (8.5-10.1); CARBON DIOXIDE 28 MMOL/L (21-32); CHLORIDE 107 MMOL/L (98-107); CREATININE 0.8 MG/DL (0.55-1.30); POTASSIUM 3.5 MMOL/L (3.5-5.1); SODIUM 141 MMOL/L (136-145)
[2017-12-13 07:19] LABS: % IRON SATURATION 11 % (15-50); IRON 37 ug/dL (50-175); TOTAL IRON BINDING CAPACITY 343 ug/dL (250-450)
--- NOTE | 2017-12-13 07:55 | General Progress Note ---
Assessment/Plan Assessment/Plan (1) Lumbar DDD (2) Lumbar spondylosis (4) Lumbar Herniated disc (5) Lumbar Radiculopathy (6) FBSS Patient to be continued on Ativan, Valium and Morphine ER We will discontinue Morphine IV and Dilaudid tabs. We will start Dilaudid 2mg IVPB Q4H PRN severe pain and Neurontin 300mg TID. D/w Dr. Singh and he concurred. Subjective Date patient seen: Dec 13, 2017 Time patient seen: 07:00 - am Allergies: Coded Allergies: IRON (Verified Allergy, Unknown, Rash, 08/09/17) had nausea, vomiting and rashes METHADONE (Verified Allergy, Unknown, 06/04/17) PREGABALIN (Verified Allergy, Unknown, 06/04/17) Subjective REVIEW OF SYSTEMS: Denies rash, fever, chills, sweating, dizziness, drowsiness, blurred vision, sore throat, or change in her weight. No shortness of breath or chest pain. No nausea, vomiting, diarrhea, or blood in stool or urine. No bowel or bladder incontinence. No dysuria. She is complaining of low back pain. SUBJECTIVE: Patient continues to c/o low back pain and numbness in her lower extremities. Pain has been severe with spasms. It has not been relieved on the Morphine IV and she was advised to continue the Morphine ER. I d/w her about changing the Morphine IV to Dilaudid IVPB. She understands. D/w family at bedside. Objective Last 24 Hour Vital Signs Date Time Temp Pulse Resp B/P (MAP) Pulse Ox O2 Delivery O2 Flow Rate FiO2 12/13/17 04:00 98.9 100 19 145/101 (116) 96 98.9 12/13/17 01:04 163/100 12/13/17 00:17 98.4 90 20 163/100 (121) 96 98.4 12/12/17 21:00 Room Air 12/12/17 20:00 98.6 90 20 172/102 (125) 96 98.6 12/12/17 17:20 98.8 12/12/17 16:50 98.8 12/12/17 16:16 181/115 12/12/17 16:00 98.8 85 20 181/115 (137) 99 98.8 12/12/17 12:18 99.3 12/12/17 12:00 98.6 85 20 166/106 (126) 98 98.6 12/12/17 09:00 Room Air 12/12/17 08:41 174/111 12/12/17 08:00 99.0 94 20 174/111 (132) 98 99.0 Intake and Output 12/12/17 12/13/17 19:00 07:00 Intake Total 1160 ml 1000 ml Balance 1160 ml 1000 ml Intake Oral 1160 ml 1000 ml # Voids 2 4 Laboratory Tests 12/12/17 08:25: White Blood Count 5.0, Red Blood Count 4.10L, Hemoglobin 11.7L, Hematocrit 36.8L , Mean Corpuscular Volume 90, Mean Corpuscular Hemoglobin 28.6, Mean Corpuscular Hemoglobin Concent 31.9L, Red Cell Distribution Width 12.7, Platelet Count 308, Mean Platelet Volume 4.7L, Neutrophils (%) (Auto) 57.6, Lymphocytes (%) (Auto) 32.4, Monocytes (%) (Auto) 7.4, Eosinophils (%) (Auto) 1.9, Basophils (%) (Auto) 0.7, Sodium Level 143, Potassium Level 3.7, Chloride Level 108H, Carbon Dioxide Level 29, Anion Gap 6, Blood Urea Nitrogen 13, Creatinine 0.9, Estimat Glomerular Filtration Rate > 60, Glucose Level 147H, Calcium Level 8.8, Total Bilirubin 0.3, Aspartate Amino Transf (AST/SGOT) 12L, Alanine Aminotransferase (ALT/SGPT) 22, Alkaline Phosphatase 189H, Total Protein 7.3, Albumin 3.2L, Globulin 4.1, Albumin/Globulin Ratio 0.8L, Thyroid Stimulating Hormone (TSH) 2.179 12/13/17 05:30: White Blood Count 7.3, Red Blood Count 3.85L, Hemoglobin 11.2L, Hematocrit 34.6L , Mean Corpuscular Volume 90, Mean Corpuscular Hemoglobin 29.1, Mean Corpuscular Hemoglobin Concent 32.5, Red Cell Distribution Width 12.9, Platelet Count 291, Mean Platelet Volume 5.0L, Neutrophils (%) (Auto) 66.9, Lymphocytes ( %) (Auto) 26.4, Monocytes (%) (Auto) 4.2, Eosinophils (%) (Auto) 1.4, Basophils (%) (Auto) 1.1, Sodium Level 141, Potassium Level 3.5, Chloride Level 107, Carbon Dioxide Level 28, Anion Gap 6, Blood Urea Nitrogen 13, Creatinine 0.8, Estimat Glomerular Filtration Rate > 60, Glucose Level 141H, Calcium Level 8.8, Iron Level 37L, Total Iron Binding Capacity 343, Percent Iron Saturation 11L, Unsaturated Iron Binding 306, Vitamin B12 Level 426, Folate 4.9L Height (Feet): 5 Height (Inches): 3.00 Weight (Pounds): 145 Objective GENERAL: Alert, awake, and oriented x3. HEENT: PERRLA on the left. On the right, prosthetic eye noted. NECK: Range of motion is full in all directions. LUNGS: Clear. HEART: Regular. ABDOMEN: Tenderness to palpation. BACK: Range of motion is decreased in flexion and extension with surgical scar noted. Tenderness to palpation. EXTREMITIES: Upper and lower extremity range of motion is decreased due to the patient's condition. No cyanosis. No clubbing. Sensory is reduced. Reflexes are not obtainable. No adenopathy. Tal Hewitt Dec 13, 2017 07:55
[2017-12-13] MEDS ORDERED: HYDROmorphone 1mg/ml Carpuject IVPB PRN ×2 (08:15)
[2017-12-13] MEDS: DULoxetine 30mg cap ORAL SCH ×2 (08:18→08:31)
[2017-12-13] MEDS: Docusate 100mg cap ORAL SCH ×3 (08:19→18:00)
[2017-12-13] MEDS: Cyclobenzaprine 10mg Tab ORAL SCH ×3 (08:19→17:12)
[2017-12-13] MEDS: Heparin 5000 units/ml inj SUBQ SCH ×2 (08:43→20:58)
--- NOTE | 2017-12-13 10:15 | GI Progress Note ---
Assessment/Plan Problems: (1) abdominal pain (2) Anxiety ICD Codes: F41.9 - Anxiety disorder, unspecified SNOMED: 88665167 (3) Anemia ICD Codes: D64.9 - Anemia, unspecified SNOMED: 824796034 (4) Opioid dependence ICD Codes: F11.20 - Opioid dependence, uncomplicated SNOMED: 18768848 (5) Muscle spasm ICD Codes: M62.838 - Other muscle spasm SNOMED: 64199018, 31040745 (6) Intractable back pain ICD Codes: M54.9 - Dorsalgia, unspecified SNOMED: 551665304 (7) Chronic pain ICD Codes: G89.29 - Other chronic pain SNOMED: 04936023 (8) Benzodiazepine dependence ICD Codes: F13.20 - Sedative, hypnotic or anxiolytic dependence, uncomplicated SNOMED: 713632377 (9) Hypoalbuminemia ICD Codes: E88.09 - Other disorders of plasma-protein metabolism, not elsewhere classified SNOMED: 766953152 (10) spasmodic severe pain Status: unchanged Status Narrative Discussed with Dr. Haines. Assessment/Plan anemia work up reviewed >> iron and folate deficiency (has allergy to iron) bowel regimen folate pain control fu labs will need EGD and colonoscopy when more stable Subjective Subjective generalized pain abdominal cramping after BM numbness in legs Objective Last 24 Hour Vital Signs Date Time Temp Pulse Resp B/P (MAP) Pulse Ox O2 Delivery O2 Flow Rate FiO2 12/13/17 09:00 Room Air 12/13/17 08:19 98.9 12/13/17 08:19 192/117 12/13/17 08:00 99.6 116 20 192/117 (142) 99 99.6 12/13/17 04:00 98.9 100 19 145/101 (116) 96 98.9 12/13/17 01:04 163/100 12/13/17 00:17 98.4 90 20 163/100 (121) 96 98.4 12/12/17 21:00 Room Air 12/12/17 20:00 98.6 90 20 172/102 (125) 96 98.6 12/12/17 17:20 98.8 12/12/17 16:50 98.8 12/12/17 16:16 181/115 12/12/17 16:00 98.8 85 20 181/115 (137) 99 98.8 12/12/17 12:18 99.3 12/12/17 12:00 98.6 85 20 166/106 (126) 98 98.6 Intake and Output 12/12/17 12/13/17 19:00 07:00 Intake Total 1160 ml 1000 ml Balance 1160 ml 1000 ml Intake Oral 1160 ml 1000 ml # Voids 2 4 Laboratory Tests Test 12/13/17 05:30 White Blood Count 7.3 K/UL (4.8-10.8) Red Blood Count 3.85 M/UL (4.20-5.40) L Hemoglobin 11.2 G/DL (12.0-16.0) L Hematocrit 34.6 % (37.0-47.0) L Mean Corpuscular Volume 90 FL (80-99) Mean Corpuscular Hemoglobin 29.1 PG (27.0-31.0) Mean Corpuscular Hemoglobin Concent 32.5 G/DL (32.0-36.0) Red Cell Distribution Width 12.9 % (11.6-14.8) Platelet Count 291 K/UL (150-450) Mean Platelet Volume 5.0 FL (6.5-10.1) L Neutrophils (%) (Auto) 66.9 % (45.0-75.0) Lymphocytes (%) (Auto) 26.4 % (20.0-45.0) Monocytes (%) (Auto) 4.2 % (1.0-10.0) Eosinophils (%) (Auto) 1.4 % (0.0-3.0) Basophils (%) (Auto) 1.1 % (0.0-2.0) Sodium Level 141 MMOL/L (136-145) Potassium Level 3.5 MMOL/L (3.5-5.1) Chloride Level 107 MMOL/L (98-107) Carbon Dioxide Level 28 MMOL/L (21-32) Anion Gap 6 mmol/L (5-15) Blood Urea Nitrogen 13 mg/dL (7-18) Creatinine 0.8 MG/DL (0.55-1.30) Estimat Glomerular Filtration Rate > 60 mL/min (>60) Glucose Level 141 MG/DL (74-106) H Calcium Level 8.8 MG/DL (8.5-10.1) Iron Level 37 ug/dL (50-175) L Total Iron Binding Capacity 343 ug/dL (250-450) Percent Iron Saturation 11 % (15-50) L Unsaturated Iron Binding 306 ug/dL (112-346) Vitamin B12 Level 426 PG/ML (193-986) Folate 4.9 NG/ML (8.6-58.9) L Height (Feet): 5 Height (Inches): 3.00 Weight (Pounds): 145 General Appearance: WD/WN, no apparent distress, alert Cardiovascular: normal rate Respiratory/Chest: normal breath sounds, no respiratory distress Abdominal Exam: normal bowel sounds, non tender, soft Extremities: normal range of motion, non-tender Mariah Peace NP Dec 13, 2017 10:15
--- NOTE | 2017-12-13 11:23 | General Progress Note ---
Assessment/Plan Problem List: (1) Chronic pain syndrome ICD Codes: G89.4 - Chronic pain syndrome SNOMED: 744934436 (2) HTN (hypertension) ICD Codes: I10 - Essential (primary) hypertension SNOMED: 88188282 (3) Anxiety ICD Codes: F41.9 - Anxiety disorder, unspecified SNOMED: 52553255 (4) Chronic back pain ICD Codes: M54.9 - Dorsalgia, unspecified; G89.29 - Other chronic pain SNOMED: 952379920 (5) Muscle spasm ICD Codes: M62.838 - Other muscle spasm SNOMED: 79936200, 76848371 Status: stable, progressing Assessment/Plan ot pt diet pain control cbc bmp am Subjective Constitutional: Reports: weakness Allergies: Coded Allergies: IRON (Verified Allergy, Unknown, Rash, 08/09/17) had nausea, vomiting and rashes METHADONE (Verified Allergy, Unknown, 06/04/17) PREGABALIN (Verified Allergy, Unknown, 06/04/17) All Systems: reviewed and negative except above Subjective c/o leg pain 5/10 Objective Last 24 Hour Vital Signs Date Time Temp Pulse Resp B/P (MAP) Pulse Ox O2 Delivery O2 Flow Rate FiO2 12/13/17 11:03 98.9 12/13/17 11:03 98.9 12/13/17 09:18 98.9 12/13/17 09:00 Room Air 12/13/17 08:19 98.9 12/13/17 08:19 192/117 12/13/17 08:00 99.6 116 20 192/117 (142) 99 99.6 12/13/17 04:00 98.9 100 19 145/101 (116) 96 98.9 12/13/17 01:04 163/100 12/13/17 00:17 98.4 90 20 163/100 (121) 96 98.4 12/12/17 21:00 Room Air 12/12/17 20:00 98.6 90 20 172/102 (125) 96 98.6 12/12/17 17:20 98.8 12/12/17 16:50 98.8 12/12/17 16:16 181/115 12/12/17 16:00 98.8 85 20 181/115 (137) 99 98.8 12/12/17 12:18 99.3 12/12/17 12:00 98.6 85 20 166/106 (126) 98 98.6 Intake and Output 12/12/17 12/13/17 19:00 07:00 Intake Total 1160 ml 1000 ml Balance 1160 ml 1000 ml Intake Oral 1160 ml 1000 ml # Voids 2 4 Laboratory Tests 12/13/17 05:30: White Blood Count 7.3, Red Blood Count 3.85L, Hemoglobin 11.2L, Hematocrit 34.6L , Mean Corpuscular Volume 90, Mean Corpuscular Hemoglobin 29.1, Mean Corpuscular Hemoglobin Concent 32.5, Red Cell Distribution Width 12.9, Platelet Count 291, Mean Platelet Volume 5.0L, Neutrophils (%) (Auto) 66.9, Lymphocytes ( %) (Auto) 26.4, Monocytes (%) (Auto) 4.2, Eosinophils (%) (Auto) 1.4, Basophils (%) (Auto) 1.1, Sodium Level 141, Potassium Level 3.5, Chloride Level 107, Carbon Dioxide Level 28, Anion Gap 6, Blood Urea Nitrogen 13, Creatinine 0.8, Estimat Glomerular Filtration Rate > 60, Glucose Level 141H, Calcium Level 8.8, Iron Level 37L, Total Iron Binding Capacity 343, Percent Iron Saturation 11L, Unsaturated Iron Binding 306, Vitamin B12 Level 426, Folate 4.9L Height (Feet): 5 Height (Inches): 3.00 Weight (Pounds): 145 General Appearance: alert EENT: normal ENT inspection Neck: normal alignment Cardiovascular: normal peripheral pulses, normal rate, regular rhythm Respiratory/Chest: chest wall non-tender, lungs clear, normal breath sounds Abdomen: normal bowel sounds, non tender, soft Extremities: normal inspection Edema: no edema noted Arm (L), no edema noted Arm (R), no edema noted Leg (L), no edema noted Leg (R), no edema noted Pedal (L), no edema noted Pedal (R), no edema noted Generalized Neurologic: oriented x 3, motor weakness Skin: normal pigmentation, warm/dry Ernesto Magallon DO Dec 13, 2017 11:23
[2017-12-13] MEDS ORDERED: HYDROmorphone 2 MG in NS 55ml IVPB PRN (11:30)
--- NOTE | 2017-12-13 14:45 | Consultation ---
DATE OF CONSULTATION: 12/13/2017 NOTE: POOR AUDIO INITIAL PSYCHIATRIC CONSULTATION CONSULTING PHYSICIAN: Amanda Crews M.D. REQUESTING PHYSICIAN: Ernesto Magallon D.O. HISTORY OF PRESENT ILLNESS: This is a 52-year-old female patient with uncontrolled pain. She is complaining of high levels of muscle spasms throughout her body and she seemed to be easily frustrated. She feels as though staff was trying not to recognize her chronic pain and muscle spasms, which she thinks that the staff is trying to anxiety disorder. I explained to her the reason why I am seeing her is for the anxiety and for the pain disorder and muscle spasm. So, she understood the staff was taking both of her concerns seriously to deescalate the patient on interview today, but her first comment was "I really am in pain, this is not anxiety, I staff are ignoring me," but that deescalated after I told her that we believe that she has anxiety and pain disorder. ALLERGIES: The patient is allergic to iron, methadone, and . MEDICAL HISTORY: She has a history of hypertension, hypoalbumin, history of urinary tract infection, opiate dependence, anemia, anxiety, chronic back pain, intractable back pain. SOCIAL HISTORY: Financially supported by [employer] and Medicare. PREVIOUS PSYCHOTROPIC MEDICATIONS: She has a history of taking Ativan, Klonopin, Elavil, and Cymbalta. PSYCHIATRIC HISTORY: History of generalized anxiety disorder, rule out major depressive disorder, mild, recurrent. SUBSTANCE ABUSE HISTORY: The patient when I ask and seemed to . FAMILY PSYCHIATRIC HISTORY: Denies. STRENGTHS: She is motivated to get better and relatively healthy. WEAKNESSES: Impulsive and minimal support system. MENTAL STATUS EXAMINATION: This is a 52-year-old female. Appearance is disheveled. Attitude, irritable and agitated. Affect guarded and restricted. Intellect poor. Mood depressed and anxious. Motor activity, psychomotor agitation. Attention span is poor. Orientation x2. Speech is slightly pressured. Thought process is disorganized and illogical. Thought content, she has thought content, slight paranoia. Insight and judgment is poor. As far as her perception, it is poor. Abstract reasoning is poor. Denies suicidal or homicidal thoughts, but insight and judgment is poor. Short-term memory, 3/3 word recall after 5 minutes delay with good short-term memory, long-term memory is intact based on the knowledge of long-term events in her life she went . DIAGNOSIS: Generalized anxiety disorder, rule out major depressive disorder, mild, recurrent, without psychotic features. PLAN: My plan for this patient, I am going to continue her on Ativan 1 mg IV q.4 h. p.r.n. anxiety and agitation, but I am also going to add Cymbalta 30 mg p.o. daily to help her reduce anxiety and depression and also help with pain prophylaxis and encouraged her to interact appropriately with staff. Twenty minutes of cognitive behavior therapy was provided. During her cognitive behavior therapy session, we identified her automatic negative thoughts that are causing her anxiety and depression and help to convert this to positive thoughts 20 minutes of cognitive behavior therapy. Chart was reviewed. Discussed with staff. Seen and assessed in her room. I would like to thank Dr. Ernesto Magallon for this interesting consultation. Amanda Crews M.D. DR: JOHN JOB#: [id number] CC:
[2017-12-13] MEDS: Miralax 17gm pkt ORAL PRN (17:12)
--- NOTE | 2017-12-13 20:15 | Consultation ---
Consult Note Consult Note NEUROLOGY CONSULTATION CONSULTING PHYSICIAN: Chelly Antoine M.D. REQUESTING PHYSICIAN: Ernesto Magallon D.O. HISTORY: Ms. Naz Carmona is a 52-year-old, right-handed, black lady, who does have a past history of lumbosacral spine surgery with residual low back pain for which she has had a spinal stimulator placed. She also has had right lower extremity weakness, severe back and right lower extremity spasms for which she has been on various different antispasmodics over the years. 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 I had last seen her in September 2017 following a fall and exacerbation of back pain ans spasm. At that time she responded well to a combination of Flexeril, Elavil and Lidoderm patches. She was functioning relatively well following that but then 3-4 days prior to admission she developed diarrhoea. This was followed by increased back pain and spasm and then sharp shooting pains and numbness in the legs. As a result of these problems she presented to the [facility] and was admitted. She denies any new neurologic symptoms. She specifically denies any increased weakness on one side or the other, problems with speech, problems with language, problems with vision, or problems with her memory. PAST MEDICAL HISTORY: Significant for low back problems for which she has had lumbosacral spine surgery with residual low back pain for which she has a spinal stimulator, right lower extremity weakness following the operation numerous years ago, and back and right lower extremity spasms. 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 FAMILY HISTORY: Nothing significant with no family history of any neurological problems. PERSONAL HISTORY: Home: She lives at home with her . Work: She is unemployed. Habits: None. PHYSICAL EXAMINATION: GENERAL: She is a well-developed, well-nourished, pleasant, black lady, lying in bed, in no acute distress. VITAL SIGNS: Pulse 103 per minute, blood pressure 157/92 mmHg, respirations 20 per minute, and temperature 99.4 degrees Fahrenheit. HEAD: Normocephalic and atraumatic. EENT: Examination benign. NECK: No neck rigidity was observed. SPINE: Her lumbosacral spine revealed significant scarring from prior surgery and moderate spasm. NEUROLOGICAL EXAMINATION: MENTAL STATUS EXAMINATION: She was awake and alert. She was oriented to person, place, and time except for the exact date. She was able to recall 3/3 words immediately and could remember them in 1 and 3 minutes on the second trial. She was able to remember presidents Trump through Venegas senior with hints. Her mathematical skills were minimally impaired. Her visuospatial function was relatively good. SPEECH: She had no dysarthria. LANGUAGE: She had no aphasia. CRANIAL NERVE EXAMINATION: II: The visual montero were intact in the left eye. She had loss of vision with no light perception in the right eye. III, IV & : The external ocular movements were full in the left eye, but restricted in the right eye. The right pupil was 3 mm and did not react to light. The left pupil was 3 mm and reacted sluggishly to light. V: She had normal facial sensations and the temporales, masseters, and pterygoids function normally. VII: She had a right VII central facial paresis. VIII: She was able to hear well bilaterally and had no nystagmus. IX: The palate moved symmetrically on phonation. X: She had no hoarseness of voice. XI: The sternocleidomastoids and trapezii functioned normally. XII: The tongue was in the midline without any fasciculations or atrophy. MOTOR SYSTEM: The tone was normal in all four extremities. Examination of muscle mass revealed no focal wasting. Examination of power revealed G 5/5 power except for G 4+/5 power in the right iliopsoas, and G 0/5 power in the right ankle dorsiflexors and toe extensors, and G 4++/5 in the left iliopsoas. She exhibited give-way weakness in both lower extremities. SENSORY EXAMINATION: She had intact sensations to pinprick, light touch and graphesthesia. REFLEXES: 1+ and bilaterally symmetrical at the biceps, triceps, and brachioradialis, 0 on the right, and 1++ on the left at the knees, 0 at both ankles. The plantar responses were flexor bilaterally. COORDINATION: She performed well on [id number] testing. She was unable to perform [id number] testing. STANCE: She stood up with support on one side. GAIT: She walked with support on one side with a paraparetic gait with a right foot drop. DIAGNOSTIC IMPRESSION: 1. Ms. Naz Carmona is a 52-year-old, right-handed, black lady, who does have a past history of lumbosacral spine disease for which she has had extensive surgery with a failed back associated with chronic low back pain and spasms involving the right lower extremity for which she has had a spinal stimulator placed. 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 2. About 3-4 days prior to admission she developed diarrhoea. This was followed by increased back pain and spasm and then sharp shooting pains and numbness in the legs. As a result of these problems she presented to the [facility] and was admitted. 3. 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 4. The most likely etiology for the patient's low back pain and spasms, and dysesthesias in the lower extremities, would be her underlying spine pathology which has become more symptomatic. RECOMMENDATIONS: 1. Agree with management thus far. 2. Pain Management as per her pain management physician. 3. Continue Flexeril for muscle spasms. 4. Add Lidoderm patch for back pain. 5. Restart Elavil 25 mg q HS as in the past she responded very well to it. 6. The patient should be mobilized with the help of physical and occupational therapy. 7. Will order CT of LS spine to evaluate for acte pathology as patient has a non-MRI compatible spinal stimulator. 8. Depending on how the patient fares over the next day or so, further recommendations will be given. Thank you for entrusting me with the care of Ms. Carmona. I shall follow her with you. Chelly Antoine M.D., MAnupamS.PAnupamH. CHELLY ANTOINE Dec 13, 2017 20:15
[2017-12-14] VITALS: BP 170/113
[2017-12-14] MEDS: MS Contin 15mg tab ORAL SCH ×3 (03:00→21:48)
[2017-12-14 04:00] VITALS: BP 155/97
[2017-12-14 06:20] LABS: BASOPHILS % (AUTO) 1.2 % (0.0-2.0); EOSINOPHILS % (AUTO) 1.9 % (0.0-3.0); HEMATOCRIT 34.9 % (37.0-47.0); HEMOGLOBIN 11.4 G/DL (12.0-16.0); LYMPHOCYTES % (AUTO) 20.9 % (20.0-45.0); MEAN CORPUSCULAR VOLUME 90 FL (80-99); MONOCYTES % (AUTO) 6.8 % (1.0-10.0); NEUTROPHILS % (AUTO) 69.3 % (45.0-75.0); PLATELET COUNT 285 K/UL (150-450); RED BLOOD COUNT 3.87 M/UL (4.20-5.40); RED CELL DISTRIBUTION WIDTH 12.7 % (11.6-14.8); WHITE BLOOD COUNT 7.4 K/UL (4.8-10.8)
[2017-12-14 07:00] LABS: ANION GAP 8 mmol/L (5-15); BLOOD UREA NITROGEN 17 mg/dL (7-18); CALCIUM 8.9 MG/DL (8.5-10.1); CARBON DIOXIDE 28 MMOL/L (21-32); CHLORIDE 106 MMOL/L (98-107); CREATININE 0.8 MG/DL (0.55-1.30); SODIUM 142 MMOL/L (136-145)
--- NOTE | 2017-12-14 07:51 | General Progress Note ---
Assessment/Plan Assessment/Plan (1) Lumbar DDD (2) Lumbar spondylosis (4) Lumbar Herniated disc (5) Lumbar Radiculopathy (6) FBSS Patient to be continued on Neurontin, Dilaudid IV, Ativan, Valium and Morphine ER. D/w Dr. Singh and he concurred. Subjective Date patient seen: Dec 14, 2017 Time patient seen: 08:15 - am Allergies: Coded Allergies: IRON (Verified Allergy, Unknown, Rash, 08/09/17) had nausea, vomiting and rashes METHADONE (Verified Allergy, Unknown, 06/04/17) PREGABALIN (Verified Allergy, Unknown, 06/04/17) Subjective REVIEW OF SYSTEMS: Denies rash, fever, chills, sweating, dizziness, drowsiness, blurred vision, sore throat, or change in her weight. No shortness of breath or chest pain. No nausea, vomiting, diarrhea, or blood in stool or urine. No bowel or bladder incontinence. No dysuria. She is complaining of low back pain. SUBJECTIVE: Patient is in bed and showing no signs of distress. Pain had been severe even while on the IVPB and it was changed to IVP, now pt reports that the pain has been better controlled. She will be going for a CT scan of the L spine as per Neurologist. Objective Last 24 Hour Vital Signs Date Time Temp Pulse Resp B/P (MAP) Pulse Ox O2 Delivery O2 Flow Rate FiO2 12/14/17 06:20 98.4 12/14/17 05:50 98.4 12/14/17 04:00 98.4 94 18 155/97 (116) 99 98.4 12/14/17 00:05 170/113 12/14/17 00:00 100.4 104 19 170/113 (132) 99 100.4 12/13/17 21:46 99.6 12/13/17 21:00 Room Air 12/13/17 20:00 99.6 111 19 137/105 (116) 99 99.6 12/13/17 16:00 99.4 103 20 157/97 (117) 99 99.4 12/13/17 12:41 99.3 12/13/17 12:30 100 154/113 (127) 12/13/17 12:00 99.3 109 20 188/112 (137) 98 99.3 12/13/17 11:33 99.3 12/13/17 11:03 98.9 12/13/17 09:18 98.9 12/13/17 09:00 Room Air 12/13/17 08:19 98.9 12/13/17 08:19 192/117 12/13/17 08:00 99.6 116 20 192/117 (142) 99 99.6 Intake and Output 12/13/17 12/14/17 19:00 07:00 Intake Total 1000 ml 720 ml Balance 1000 ml 720 ml Intake Oral 1000 ml 720 ml # Voids 2 3 Laboratory Tests 12/14/17 05:45: White Blood Count 7.4, Red Blood Count 3.87L, Hemoglobin 11.4L, Hematocrit 34.9L , Mean Corpuscular Volume 90, Mean Corpuscular Hemoglobin 29.4, Mean Corpuscular Hemoglobin Concent 32.6, Red Cell Distribution Width 12.7, Platelet Count 285, Mean Platelet Volume 5.2L, Neutrophils (%) (Auto) 69.3, Lymphocytes ( %) (Auto) 20.9, Monocytes (%) (Auto) 6.8, Eosinophils (%) (Auto) 1.9, Basophils (%) (Auto) 1.2, Sodium Level 142, Potassium Level 4.0, Chloride Level 106, Carbon Dioxide Level 28, Anion Gap 8, Blood Urea Nitrogen 17, Creatinine 0.8, Estimat Glomerular Filtration Rate > 60, Glucose Level 111H, Calcium Level 8.9 Height (Feet): 5 Height (Inches): 3.00 Weight (Pounds): 145 Objective GENERAL: Alert, awake, and oriented x3. HEENT: PERRLA on the left. On the right, prosthetic eye noted. NECK: Range of motion is full in all directions. LUNGS: Clear. HEART: Regular. ABDOMEN: Tenderness to palpation. EXTREMITIES: No cyanosis. No clubbing. NEURO: No changes. Tal Hewitt Dec 14, 2017 07:51
[2017-12-14 08:00] VITALS: BP 174/108
[2017-12-14] MEDS: LORazepam Inj 2mg/ml 1ml IV PRN ×3 (09:22→18:10)
[2017-12-14] MEDS: Miralax 17gm pkt ORAL PRN (10:20)
[2017-12-14] MEDS: DULoxetine 30mg cap ORAL SCH (10:20)
[2017-12-14] MEDS: Cyclobenzaprine 10mg Tab ORAL SCH ×3 (10:21→18:10)
[2017-12-14] MEDS: Docusate 100mg cap ORAL SCH ×2 (10:21→18:00)
[2017-12-14] MEDS: Heparin 5000 units/ml inj SUBQ SCH ×2 (10:28→20:12)
[2017-12-14 12:00] VITALS: BP 149/94
--- NOTE | 2017-12-14 13:26 | GI Progress Note ---
Assessment/Plan Problems: (1) abdominal pain (2) Anxiety ICD Codes: F41.9 - Anxiety disorder, unspecified SNOMED: 76577291 (3) Anemia ICD Codes: D64.9 - Anemia, unspecified SNOMED: 636727047 (4) Opioid dependence ICD Codes: F11.20 - Opioid dependence, uncomplicated SNOMED: 44191501 (5) Muscle spasm ICD Codes: M62.838 - Other muscle spasm SNOMED: 91367361, 23718990 (6) Intractable back pain ICD Codes: M54.9 - Dorsalgia, unspecified SNOMED: 254704973 (7) Chronic pain ICD Codes: G89.29 - Other chronic pain SNOMED: 44712870 (8) Benzodiazepine dependence ICD Codes: F13.20 - Sedative, hypnotic or anxiolytic dependence, uncomplicated SNOMED: 557860717 (9) Hypoalbuminemia ICD Codes: E88.09 - Other disorders of plasma-protein metabolism, not elsewhere classified SNOMED: 910768006 (10) spasmodic severe pain Status: stable Status Narrative Discussed with Dr. Haines. Assessment/Plan anemia work up reviewed >> iron and folate deficiency (has allergy to iron) bowel regimen folate pain control fu labs will need EGD and colonoscopy when more stable, can be done as outpatient The patient was seen and examined at bedside and all new and available data was reviewed in the patients chart. I agree with the above findings, impression and plan. (Patient seen earlier today. Signature stamp does not reflect patient encounter time.). - Harley Haines MD Subjective Subjective generalized pain abdominal cramping after BM numbness in legs Objective Last 24 Hour Vital Signs Date Time Temp Pulse Resp B/P (MAP) Pulse Ox O2 Delivery O2 Flow Rate FiO2 12/14/17 12:00 98.3 87 18 149/94 (112) 98 98.3 12/14/17 10:34 98.2 12/14/17 10:34 98.2 12/14/17 10:21 98.2 12/14/17 09:00 Room Air 12/14/17 08:00 98.2 102 20 174/108 (130) 99 98.2 12/14/17 05:50 98.4 12/14/17 04:00 98.4 94 18 155/97 (116) 99 98.4 12/14/17 00:05 170/113 12/14/17 00:00 100.4 104 19 170/113 (132) 99 100.4 12/13/17 21:46 99.6 12/13/17 21:00 Room Air 12/13/17 20:00 99.6 111 19 137/105 (116) 99 99.6 12/13/17 16:00 99.4 103 20 157/97 (117) 99 99.4 Intake and Output 12/13/17 12/14/17 19:00 07:00 Intake Total 1000 ml 720 ml Balance 1000 ml 720 ml Intake Oral 1000 ml 720 ml # Voids 2 3 Laboratory Tests Test 12/14/17 05:45 White Blood Count 7.4 K/UL (4.8-10.8) Red Blood Count 3.87 M/UL (4.20-5.40) L Hemoglobin 11.4 G/DL (12.0-16.0) L Hematocrit 34.9 % (37.0-47.0) L Mean Corpuscular Volume 90 FL (80-99) Mean Corpuscular Hemoglobin 29.4 PG (27.0-31.0) Mean Corpuscular Hemoglobin Concent 32.6 G/DL (32.0-36.0) Red Cell Distribution Width 12.7 % (11.6-14.8) Platelet Count 285 K/UL (150-450) Mean Platelet Volume 5.2 FL (6.5-10.1) L Neutrophils (%) (Auto) 69.3 % (45.0-75.0) Lymphocytes (%) (Auto) 20.9 % (20.0-45.0) Monocytes (%) (Auto) 6.8 % (1.0-10.0) Eosinophils (%) (Auto) 1.9 % (0.0-3.0) Basophils (%) (Auto) 1.2 % (0.0-2.0) Sodium Level 142 MMOL/L (136-145) Potassium Level 4.0 MMOL/L (3.5-5.1) Chloride Level 106 MMOL/L (98-107) Carbon Dioxide Level 28 MMOL/L (21-32) Anion Gap 8 mmol/L (5-15) Blood Urea Nitrogen 17 mg/dL (7-18) Creatinine 0.8 MG/DL (0.55-1.30) Estimat Glomerular Filtration Rate > 60 mL/min (>60) Glucose Level 111 MG/DL (74-106) H Calcium Level 8.9 MG/DL (8.5-10.1) Height (Feet): 5 Height (Inches): 3.00 Weight (Pounds): 145 General Appearance: WD/WN, no apparent distress, alert Cardiovascular: normal rate Respiratory/Chest: normal breath sounds, no respiratory distress Abdominal Exam: normal bowel sounds, non tender, soft Extremities: normal range of motion, non-tender Mariah Peace NP Dec 14, 2017 13:26
--- NOTE | 2017-12-14 13:57 | Diagnostic Imaging Report ---
Indication: Weakness Technique: CT lumbar spine was performed utilizing automated exposure control without intravenous contrast material. Axial, sagittal and coronal images were generated. CT dose: Total DLP 415.16 mGycm; CTDI vol 14.79 mGy Comparison: 09/05/2017 Findings: There are 5 nonrib-bearing lumbar-type vertebral bodies, assuming 12 paired ribs. The patient is again noted to be status post instrumented fusion at L4-L5 by means of left-sided pedicular screws and a posterior brett. Disc spacer at L4-5 is again noted, as is ankylosis of the L4-5 disc space and facets and bone graft material. There are unchanged lucencies in the right L4 and L5 pedicles related to prior hardware. There is no definite evidence of hardware-related complication. No definite evidence of acute fracture. Spinal stimulators are again noted without significant interval change in positioning/appearance. Again, 2 of the leads course dorsally and one courses ventrally. There is surrounding postsurgical change without increased soft tissue infiltration or fluid collection related to the course of the stimulator wires compared to the prior exam. There is unchanged ossification of the periphery of the thecal sac extending from the level of L5 to the mid sacral spine. There are atherosclerotic calcifications of a normal caliber abdominal aorta. Imaged portions of the kidneys and bowel grossly unremarkable. IMPRESSION: Extensive postsurgical change of the lumbar spine, overall similar in appearance to prior exam of 09/05/17. No evidence of acute fracture. Unchanged dystrophic calcification of the lower lumbar/upper sacral thecal sac. Spinal cord stimulator is in place. Please note that MRI would provide a more sensitive evaluation for the cord and discs and can be obtained if implanted hardware is MRI compatible/conditional. The CT scanner at [facility] is accredited by the [employer] and the scans are performed using protocols designed to limit radiation exposure to as low as reasonably achievable to attain images of sufficient resolution adequate for diagnostic evaluation.
--- NOTE | 2017-12-14 14:35 | General Progress Note ---
Assessment/Plan Problem List: (1) Chronic pain syndrome ICD Codes: G89.4 - Chronic pain syndrome SNOMED: 723816338 (2) HTN (hypertension) ICD Codes: I10 - Essential (primary) hypertension SNOMED: 35644167 (3) Anxiety ICD Codes: F41.9 - Anxiety disorder, unspecified SNOMED: 54371084 (4) Chronic back pain ICD Codes: M54.9 - Dorsalgia, unspecified; G89.29 - Other chronic pain SNOMED: 382782569 (5) Muscle spasm ICD Codes: M62.838 - Other muscle spasm SNOMED: 69151217, 90956192 Status: stable, progressing Assessment/Plan ot pt diet pain control cbc bmp am Subjective Constitutional: Reports: weakness Allergies: Coded Allergies: IRON (Verified Allergy, Unknown, Rash, 08/09/17) had nausea, vomiting and rashes METHADONE (Verified Allergy, Unknown, 06/04/17) PREGABALIN (Verified Allergy, Unknown, 06/04/17) All Systems: reviewed and negative except above Subjective sleepy calm Objective Last 24 Hour Vital Signs Date Time Temp Pulse Resp B/P (MAP) Pulse Ox O2 Delivery O2 Flow Rate FiO2 12/14/17 12:00 98.3 87 18 149/94 (112) 98 98.3 12/14/17 10:34 98.2 12/14/17 10:34 98.2 12/14/17 10:21 98.2 12/14/17 09:00 Room Air 12/14/17 08:00 98.2 102 20 174/108 (130) 99 98.2 12/14/17 05:50 98.4 12/14/17 04:00 98.4 94 18 155/97 (116) 99 98.4 12/14/17 00:05 170/113 12/14/17 00:00 100.4 104 19 170/113 (132) 99 100.4 12/13/17 21:46 99.6 12/13/17 21:00 Room Air 12/13/17 20:00 99.6 111 19 137/105 (116) 99 99.6 12/13/17 16:00 99.4 103 20 157/97 (117) 99 99.4 Intake and Output 12/13/17 12/14/17 19:00 07:00 Intake Total 1000 ml 720 ml Balance 1000 ml 720 ml Intake Oral 1000 ml 720 ml # Voids 2 3 Laboratory Tests 12/14/17 05:45: White Blood Count 7.4, Red Blood Count 3.87L, Hemoglobin 11.4L, Hematocrit 34.9L , Mean Corpuscular Volume 90, Mean Corpuscular Hemoglobin 29.4, Mean Corpuscular Hemoglobin Concent 32.6, Red Cell Distribution Width 12.7, Platelet Count 285, Mean Platelet Volume 5.2L, Neutrophils (%) (Auto) 69.3, Lymphocytes ( %) (Auto) 20.9, Monocytes (%) (Auto) 6.8, Eosinophils (%) (Auto) 1.9, Basophils (%) (Auto) 1.2, Sodium Level 142, Potassium Level 4.0, Chloride Level 106, Carbon Dioxide Level 28, Anion Gap 8, Blood Urea Nitrogen 17, Creatinine 0.8, Estimat Glomerular Filtration Rate > 60, Glucose Level 111H, Calcium Level 8.9 Height (Feet): 5 Height (Inches): 3.00 Weight (Pounds): 145 General Appearance: lethargic EENT: normal ENT inspection Neck: normal alignment Cardiovascular: normal peripheral pulses, normal rate, regular rhythm Respiratory/Chest: chest wall non-tender, lungs clear, normal breath sounds Abdomen: normal bowel sounds, non tender, soft Extremities: normal inspection Edema: no edema noted Arm (L), no edema noted Arm (R), no edema noted Leg (L), no edema noted Leg (R), no edema noted Pedal (L), no edema noted Pedal (R), no edema noted Generalized Neurologic: motor weakness Skin: normal pigmentation, warm/dry Ernesto Magallon DO Dec 14, 2017 14:35
[2017-12-14 16:00] VITALS: BP 173/100
--- NOTE | 2017-12-14 18:59 | Neurology Progress Note ---
Interim History Interim History Interim History Ms. Carmona feels unwell. She is tearful. She complains of severe pain. She feels that the Dilaudid wears off in 1.5 hours and wants it more frequently. She is exhibiting drug seeking behavior. She says she is having back and leg spasms - however on examination she is exhibiting no ongoing spasms. She is miserable. Review of Systems Neuro Review of Systems Benign. Objective Physical Exam Last Vital Signs Date Time Temp Pulse Resp B/P (MAP) Pulse Ox O2 Delivery O2 Flow Rate FiO2 12/14/17 18:10 98.6 12/14/17 16:00 95 18 173/100 (124) 97 12/14/17 09:00 Room Air Laboratory Tests Test 12/14/17 05:45 White Blood Count 7.4 K/UL (4.8-10.8) Red Blood Count 3.87 M/UL (4.20-5.40) L Hemoglobin 11.4 G/DL (12.0-16.0) L Hematocrit 34.9 % (37.0-47.0) L Mean Corpuscular Volume 90 FL (80-99) Mean Corpuscular Hemoglobin 29.4 PG (27.0-31.0) Mean Corpuscular Hemoglobin Concent 32.6 G/DL (32.0-36.0) Red Cell Distribution Width 12.7 % (11.6-14.8) Platelet Count 285 K/UL (150-450) Mean Platelet Volume 5.2 FL (6.5-10.1) L Neutrophils (%) (Auto) 69.3 % (45.0-75.0) Lymphocytes (%) (Auto) 20.9 % (20.0-45.0) Monocytes (%) (Auto) 6.8 % (1.0-10.0) Eosinophils (%) (Auto) 1.9 % (0.0-3.0) Basophils (%) (Auto) 1.2 % (0.0-2.0) Sodium Level 142 MMOL/L (136-145) Potassium Level 4.0 MMOL/L (3.5-5.1) Chloride Level 106 MMOL/L (98-107) Carbon Dioxide Level 28 MMOL/L (21-32) Anion Gap 8 mmol/L (5-15) Blood Urea Nitrogen 17 mg/dL (7-18) Creatinine 0.8 MG/DL (0.55-1.30) Estimat Glomerular Filtration Rate > 60 mL/min (>60) Glucose Level 111 MG/DL (74-106) H Calcium Level 8.9 MG/DL (8.5-10.1) Neurologic Exam Objective PHYSICAL EXAMINATION: GENERAL: She is a well-developed, well-nourished, tearful, miserable, black lady, lying in bed. HEAD: Normocephalic and atraumatic. EENT: Examination benign. NECK: No neck rigidity was observed. SPINE: Her lumbosacral spine revealed significant scarring from prior surgery and mild spasm. NEUROLOGICAL EXAMINATION: MENTAL STATUS EXAMINATION: She was awake and alert. She was oriented to person, place, and time except for the exact date. She was unable to cooperate for further mental status tests. SPEECH: She had no dysarthria. LANGUAGE: She had no aphasia. CRANIAL NERVE EXAMINATION: II: The visual montero were intact in the left eye. She had loss of vision with no light perception in the right eye. III, IV & : The external ocular movements were full in the left eye, but restricted in the right eye. The right pupil was 3 mm and did not react to light. The left pupil was 3 mm and reacted sluggishly to light. V: She had normal facial sensations and the temporales, masseters, and pterygoids function normally. VII: She had a right VII central facial paresis. VIII: She was able to hear well bilaterally and had no nystagmus. IX: The palate moved symmetrically on phonation. X: She had no hoarseness of voice. XI: The sternocleidomastoids and trapezii functioned normally. XII: The tongue was in the midline without any fasciculations or atrophy. MOTOR SYSTEM: The tone was normal in all four extremities. Examination of muscle mass revealed no focal wasting. Examination of power revealed G 5/5 power except for G 4+/5 power in the right iliopsoas, and G 0/5 power in the right ankle dorsiflexors and toe extensors, and G 4++/5 in the left iliopsoas. She exhibited give-way weakness in both lower extremities. SENSORY EXAMINATION: She had intact sensations to pinprick, light touch and graphesthesia. REFLEXES: 1+ and bilaterally symmetrical at the biceps, triceps, and brachioradialis, 0 on the right, and 1++ on the left at the knees, 0 at both ankles. The plantar responses were flexor bilaterally. COORDINATION: She performed well on [id number] testing. She was unable to perform [id number] testing. STANCE & GAIT: Were deferred. Impression/Recommendations Diagnostic Impression 1. Ms. Naz Carmona is a 52-year-old, right-handed, black lady, who does have a past history of lumbosacral spine disease for which she has had extensive surgery with a failed back associated with chronic low back pain and spasms involving the right lower extremity for which she has had a spinal stimulator placed. 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 2. About 3-4 days prior to admission she developed diarrhoea. This was followed by increased back pain and spasm and then sharp shooting pains and numbness in the legs. As a result of these problems she presented to the [facility] and was admitted. 3. She feels unwell. She is tearful. She complains of severe pain. She feels that the Dilaudid wears off in 1.5 hours and wants it more frequently. She is exhibiting drug seeking behavior. She says she is having back and leg spasms - however on examination she is exhibiting no ongoing spasms. She is miserable. 4. On neurological examination, at this time, she is unable to cooperate fully for mental status testing. She exhibits loss of vision in the right eye, restricted eye movements in the right eye, a right VII central facial paresis, G 4+/5 power in the right iliopsoas, and G 0/5 power in the right ankle dorsiflexors and toe extensors, and G 4++/5 in the left iliopsoas, give-way weakness in both lower extremities, a normal sensory examination, diminished deep tendon reflexes globally with loss of the right knee jerk and a paraparetic gait with a right foot drop. 5. The CT of the LS spine done on 12/14/17 revealed extensive postsurgical change of the lumbar spine, overall similar in appearance to prior exam of 09/05/17. No evidence of acute fracture. Unchanged dystrophic calcification of the lower lumbar/upper sacral thecal sac. Spinal cord stimulator is in place. 6. The most likely etiology for the patient's low back pain and spasms, and dysesthesias in the lower extremities, would be her underlying spine pathology which has become more symptomatic. Recommendations 1. Continue present management. 2. Pain Management as per her pain management physician. 3. Continue Flexeril for muscle spasms. 4. Continue Lidoderm patch for back pain. 5. Continue Elavil 25 mg q HS. 6. The patient should be mobilized with the help of physical and occupational therapy. Chelly Angeles M.D., M.S.[facility].H. CHELLY ANGELES Dec 14, 2017 18:59
[2017-12-14 20:00] VITALS: BP 141/95
--- NOTE | 2017-12-14 20:45 | Progress Note ---
DATE: 12/14/2017 SUBJECTIVE: This is a 52-year-old female patient, seated on the chair, in uncontrolled pain and also she is endorsing high levels of anxiety, depression, and mood lability worsened by the stress of her medical illness. That is why her attending physician has requested daily psychiatric consultation to reduce her mood lability, anxiety, and depression. Assessed at bedside. She continues to be depressed, anxious, and continued to be easily agitated as well. MENTAL STATUS EXAMINATION: This is a 52-year-old female. Appearance is disheveled. Attitude, irritable and agitated. Affect guarded and restricted. Intellect poor. Mood, depressed and anxious. Motor activity, psychomotor agitation. Attention span is poor. Orientation x2. Speech is pressured. Thought process, disorganized and illogical. Thought content, auditory hallucinations and paranoid delusions. Insight and judgment is poor. DIAGNOSIS: Major depressive disorder, mild, recurrent without psychotic features. PLAN: This patient is treated with Cymbalta 30 mg daily morning and Ativan 1 mg IV q.4 hours p.r.n. anxiety and agitation. Provided 20 minutes of cognitive behavioral therapy to depression. Chart reviewed. Seen and assessed at bedside. Amanda Crews M.D. DR: SANDRA JOB#: [id number] CC:
[2017-12-14] MEDS: DiphenhydrAMINE 50mg/ml Inj IVP PRN (21:48)
[2017-12-14] MEDS: Zolpidem 5mg tab ORAL PRN (21:49)
[2017-12-15 00:10] VITALS: BP 166/94
[2017-12-15] MEDS: MS Contin 15mg tab ORAL SCH ×3 (03:00→19:26)
[2017-12-15 04:00] VITALS: BP 159/97
[2017-12-15] MEDS: DiphenhydrAMINE 50mg/ml Inj IVP PRN ×3 (05:59→19:26)
[2017-12-15 06:44] LABS: BASOPHILS % (AUTO) 0.8 % (0.0-2.0); EOSINOPHILS % (AUTO) 2.5 % (0.0-3.0); HEMATOCRIT 33.4 % (37.0-47.0); HEMOGLOBIN 10.8 G/DL (12.0-16.0); LYMPHOCYTES % (AUTO) 33.7 % (20.0-45.0); MEAN CORPUSCULAR VOLUME 90 FL (80-99); MONOCYTES % (AUTO) 6.7 % (1.0-10.0); NEUTROPHILS % (AUTO) 56.2 % (45.0-75.0); PLATELET COUNT 257 K/UL (150-450); RED CELL DISTRIBUTION WIDTH 12.9 % (11.6-14.8); WHITE BLOOD COUNT 6.4 K/UL (4.8-10.8)
[2017-12-15 07:09] LABS: ANION GAP 6 mmol/L (5-15); BLOOD UREA NITROGEN 17 mg/dL (7-18); CALCIUM 8.7 MG/DL (8.5-10.1); CARBON DIOXIDE 30 MMOL/L (21-32); CHLORIDE 105 MMOL/L (98-107); CREATININE 0.8 MG/DL (0.55-1.30); POTASSIUM 3.9 MMOL/L (3.5-5.1); SODIUM 141 MMOL/L (136-145)
--- NOTE | 2017-12-15 07:46 | General Progress Note ---
Assessment/Plan Assessment/Plan (1) Lumbar DDD (2) Lumbar spondylosis (4) Lumbar Herniated disc (5) Lumbar Radiculopathy (6) FBSS Patient to be continued on Neurontin, Dilaudid IV, Ativan, Valium and Morphine ER. D/w Dr. Singh and he concurred. Subjective Date patient seen: Dec 15, 2017 Time patient seen: 07:00 - am Allergies: Coded Allergies: IRON (Verified Allergy, Unknown, Rash, 08/09/17) had nausea, vomiting and rashes METHADONE (Verified Allergy, Unknown, 06/04/17) PREGABALIN (Verified Allergy, Unknown, 06/04/17) Subjective REVIEW OF SYSTEMS: Denies rash, fever, chills, sweating, dizziness, drowsiness, blurred vision, sore throat, or change in her weight. No shortness of breath or chest pain. No nausea, vomiting, diarrhea, or blood in stool or urine. No bowel or bladder incontinence. No dysuria. She is complaining of low back pain. SUBJECTIVE: Patient reports that her pain has been better tolerated on the Dilaudid and Morphine ER. She has no new complaints. CT scan was reviewed. Objective Last 24 Hour Vital Signs Date Time Temp Pulse Resp B/P (MAP) Pulse Ox O2 Delivery O2 Flow Rate FiO2 12/15/17 04:00 97.7 84 16 159/97 (117) 98 97.7 12/15/17 00:55 166/94 12/15/17 00:10 97.9 98 18 166/94 (118) 97 97.9 12/14/17 21:00 Room Air 12/14/17 20:00 98.4 111 17 141/95 (110) 99 98.4 12/14/17 18:10 98.6 12/14/17 16:18 98.6 12/14/17 16:00 98.6 95 18 173/100 (124) 97 98.6 12/14/17 15:48 98.3 12/14/17 14:41 98.3 12/14/17 12:00 98.3 87 18 149/94 (112) 98 98.3 12/14/17 10:21 98.2 12/14/17 09:00 Room Air 12/14/17 08:00 98.2 102 20 174/108 (130) 99 98.2 Intake and Output 12/14/17 12/15/17 19:00 07:00 Intake Total 500 ml Balance 500 ml Intake Oral 500 ml # Voids 5 Laboratory Tests 12/15/17 05:55: White Blood Count 6.4, Red Blood Count 3.70L, Hemoglobin 10.8L, Hematocrit 33.4L , Mean Corpuscular Volume 90, Mean Corpuscular Hemoglobin 29.2, Mean Corpuscular Hemoglobin Concent 32.4, Red Cell Distribution Width 12.9, Platelet Count 257, Mean Platelet Volume 5.3L, Neutrophils (%) (Auto) 56.2, Lymphocytes ( %) (Auto) 33.7, Monocytes (%) (Auto) 6.7, Eosinophils (%) (Auto) 2.5, Basophils (%) (Auto) 0.8, Sodium Level 141, Potassium Level 3.9, Chloride Level 105, Carbon Dioxide Level 30, Anion Gap 6, Blood Urea Nitrogen 17, Creatinine 0.8, Estimat Glomerular Filtration Rate > 60, Glucose Level 101, Calcium Level 8.7 Height (Feet): 5 Height (Inches): 3.00 Weight (Pounds): 160 Objective GENERAL: Alert, awake, and oriented x3. HEENT: PERRLA on the left. On the right, prosthetic eye noted. NECK: Range of motion is full in all directions. LUNGS: Clear. HEART: Regular. ABDOMEN: Tenderness to palpation. EXTREMITIES: No cyanosis. No clubbing. NEURO: No changes. Procedure: CT L Spine no Contrast Indication: Weakness Technique: CT lumbar spine was performed utilizing automated exposure control without intravenous contrast material. Axial, sagittal and coronal images were generated. CT dose: Total DLP 415.16 mGycm; CTDI vol 14.79 mGy Comparison: 09/05/2017 Findings: There are 5 nonrib-bearing lumbar-type vertebral bodies, assuming 12 paired ribs. The patient is again noted to be status post instrumented fusion at L4-L5 by means of left-sided pedicular screws and a posterior brett. Disc spacer at L4-5 is again noted, as is ankylosis of the L4-5 disc space and facets and bone graft material. There are unchanged lucencies in the right L4 and L5 pedicles related to prior hardware. There is no definite evidence of hardware-related complication. No definite evidence of acute fracture. Spinal stimulators are again noted without significant interval change in positioning/appearance. Again, 2 of the leads course dorsally and one courses ventrally. There is surrounding postsurgical change without increased soft tissue infiltration or fluid collection related to the course of the stimulator wires compared to the prior exam. There is unchanged ossification of the periphery of the thecal sac extending from the level of L5 to the mid sacral spine. There are atherosclerotic calcifications of a normal caliber abdominal aorta. Imaged portions of the kidneys and bowel grossly unremarkable. IMPRESSION: Extensive postsurgical change of the lumbar spine, overall similar in appearance to prior exam of 09/05/17. No evidence of acute fracture. Unchanged dystrophic calcification of the lower lumbar/upper sacral thecal sac. Spinal cord stimulator is in place.Procedure: CT L Spine no Contrast Indication: Weakness Technique: CT lumbar spine was performed utilizing automated exposure control without intravenous contrast material. Axial, sagittal and coronal images were generated. CT dose: Total DLP 415.16 mGycm; CTDI vol 14.79 mGy Comparison: 09/05/2017 Findings: There are 5 nonrib-bearing lumbar-type vertebral bodies, assuming 12 paired ribs. The patient is again noted to be status post instrumented fusion at L4-L5 by means of left-sided pedicular screws and a posterior brett. Disc spacer at L4-5 is again noted, as is ankylosis of the L4-5 disc space and facets and bone graft material. There are unchanged lucencies in the right L4 and L5 pedicles related to prior hardware. There is no definite evidence of hardware-related complication. No definite evidence of acute fracture. Spinal stimulators are again noted without significant interval change in positioning/appearance. Again, 2 of the leads course dorsally and one courses ventrally. There is surrounding postsurgical change without increased soft tissue infiltration or fluid collection related to the course of the stimulator wires compared to the prior exam. There is unchanged ossification of the periphery of the thecal sac extending from the level of L5 to the mid sacral spine. There are atherosclerotic calcifications of a normal caliber abdominal aorta. Imaged portions of the kidneys and bowel grossly unremarkable. IMPRESSION: Extensive postsurgical change of the lumbar spine, overall similar in appearance to prior exam of 09/05/17. No evidence of acute fracture. Unchanged dystrophic calcification of the lower lumbar/upper sacral thecal sac. Spinal cord stimulator is in place. Tal Hewitt Dec 15, 2017 07:45
[2017-12-15 08:00] VITALS: BP 159/100
[2017-12-15] MEDS: DULoxetine 30mg cap ORAL SCH (08:13)
[2017-12-15] MEDS: Cyclobenzaprine 10mg Tab ORAL SCH ×3 (08:13→17:09)
[2017-12-15] MEDS: Docusate 100mg cap ORAL SCH ×2 (08:13→17:09)
[2017-12-15] MEDS: Heparin 5000 units/ml inj SUBQ SCH ×2 (08:16→21:31)
--- NOTE | 2017-12-15 10:17 | GI Progress Note ---
Assessment/Plan Problems: (1) abdominal pain (2) Anxiety ICD Codes: F41.9 - Anxiety disorder, unspecified SNOMED: 58759226 (3) Anemia ICD Codes: D64.9 - Anemia, unspecified SNOMED: 858682170 (4) Opioid dependence ICD Codes: F11.20 - Opioid dependence, uncomplicated SNOMED: 63748229 (5) Muscle spasm ICD Codes: M62.838 - Other muscle spasm SNOMED: 55638222, 66237179 (6) Intractable back pain ICD Codes: M54.9 - Dorsalgia, unspecified SNOMED: 586999555 (7) Chronic pain ICD Codes: G89.29 - Other chronic pain SNOMED: 55279631 (8) Benzodiazepine dependence ICD Codes: F13.20 - Sedative, hypnotic or anxiolytic dependence, uncomplicated SNOMED: 620031725 (9) Hypoalbuminemia ICD Codes: E88.09 - Other disorders of plasma-protein metabolism, not elsewhere classified SNOMED: 835103433 (10) spasmodic severe pain Status: unchanged Status Narrative Discussed with Dr. Haines. Assessment/Plan anemia work up reviewed >> iron and folate deficiency (has allergy to iron) bowel regime >> observe for OIC given patients current pain management folate pain control fu labs will need EGD and colonoscopy when more stable, can be done as outpatient The patient was seen and examined at bedside and all new and available data was reviewed in the patients chart. I agree with the above findings, impression and plan. (Patient seen earlier today. Signature stamp does not reflect patient encounter time.). - Harley Haines MD Subjective Subjective generalized pain abdominal cramping after BM numbness in legs Objective Last 24 Hour Vital Signs Date Time Temp Pulse Resp B/P (MAP) Pulse Ox O2 Delivery O2 Flow Rate FiO2 12/15/17 09:00 Room Air 12/15/17 08:00 98.1 91 16 159/100 (119) 98 98.1 12/15/17 04:00 97.7 84 16 159/97 (117) 98 97.7 12/15/17 00:55 166/94 12/15/17 00:10 97.9 98 18 166/94 (118) 97 97.9 12/14/17 21:00 Room Air 12/14/17 20:00 98.4 111 17 141/95 (110) 99 98.4 12/14/17 18:10 98.6 12/14/17 16:18 98.6 12/14/17 16:00 98.6 95 18 173/100 (124) 97 98.6 12/14/17 15:48 98.3 12/14/17 14:41 98.3 12/14/17 12:00 98.3 87 18 149/94 (112) 98 98.3 12/14/17 10:21 98.2 Intake and Output 12/14/17 12/15/17 19:00 07:00 Intake Total 500 ml Balance 500 ml Intake Oral 500 ml # Voids 5 Laboratory Tests Test 12/15/17 05:55 White Blood Count 6.4 K/UL (4.8-10.8) Red Blood Count 3.70 M/UL (4.20-5.40) L Hemoglobin 10.8 G/DL (12.0-16.0) L Hematocrit 33.4 % (37.0-47.0) L Mean Corpuscular Volume 90 FL (80-99) Mean Corpuscular Hemoglobin 29.2 PG (27.0-31.0) Mean Corpuscular Hemoglobin Concent 32.4 G/DL (32.0-36.0) Red Cell Distribution Width 12.9 % (11.6-14.8) Platelet Count 257 K/UL (150-450) Mean Platelet Volume 5.3 FL (6.5-10.1) L Neutrophils (%) (Auto) 56.2 % (45.0-75.0) Lymphocytes (%) (Auto) 33.7 % (20.0-45.0) Monocytes (%) (Auto) 6.7 % (1.0-10.0) Eosinophils (%) (Auto) 2.5 % (0.0-3.0) Basophils (%) (Auto) 0.8 % (0.0-2.0) Sodium Level 141 MMOL/L (136-145) Potassium Level 3.9 MMOL/L (3.5-5.1) Chloride Level 105 MMOL/L (98-107) Carbon Dioxide Level 30 MMOL/L (21-32) Anion Gap 6 mmol/L (5-15) Blood Urea Nitrogen 17 mg/dL (7-18) Creatinine 0.8 MG/DL (0.55-1.30) Estimat Glomerular Filtration Rate > 60 mL/min (>60) Glucose Level 101 MG/DL (74-106) Calcium Level 8.7 MG/DL (8.5-10.1) Height (Feet): 5 Height (Inches): 3.00 Weight (Pounds): 160 General Appearance: WD/WN, no apparent distress, alert Cardiovascular: normal rate Respiratory/Chest: normal breath sounds, no respiratory distress Abdominal Exam: normal bowel sounds, non tender, soft Extremities: normal range of motion, non-tender Mariah Peace NP Dec 15, 2017 10:17
--- NOTE | 2017-12-15 11:00 | Progress Note ---
DATE: 12/15/2017 SUBJECTIVE: This is a 52-year-old female patient. The patient is admitted to the hospital because she has multiple problems with uncontrolled pain, pain disorders as well as urinary tract infection, opiate dependence, chronic back pain, abdominal pain, and muscle spasms. This patient also has depression worsened by stress of her medical illness and high levels of anxiety. That is why, attending physician has requested daily psychiatric consultation. MENTAL STATUS EXAMINATION: This is a 52-year-old female. Appearance disheveled. Attitude irritable and agitated. Affect guarded and restricted. Intellect poor. Mood depressed and anxious. Motor activity, psychomotor agitation. Attention span is poor. Orientation x2. Speech is pressured. Thought process, disorganized and illogical. Thought content, auditory hallucinations and paranoid delusions. Insight and judgment is poor. DIAGNOSIS: Major depressive disorder, mild, recurrent, without psychotic features, rule out generalized anxiety disorder. PLAN: Treated with Cymbalta 30 mg daily, Ativan 2 mg IV q. 4 hours p.r.n. anxiety and agitation, Neurontin 300 mg three times a day and also provided 20 minutes of cognitive behavioral therapy and encouraged her to interact appropriately with staff and during her cognitive behavior therapy session for 20 minutes, we identified her automatic negative thoughts and help to convert these to more positive thoughts. Chart reviewed. Discussed with staff. Seen and assessed at bedside. Amanda Crews M.D. DR: YEFRI JOB#: [id number] CC:
[2017-12-15 12:00] VITALS: BP 170/100
[2017-12-15] MEDS: LORazepam Inj 2mg/ml 1ml IV PRN ×3 (12:08→23:25)
--- NOTE | 2017-12-15 12:23 | General Progress Note ---
Assessment/Plan Problem List: (1) Chronic pain syndrome ICD Codes: G89.4 - Chronic pain syndrome SNOMED: 645680644 (2) HTN (hypertension) ICD Codes: I10 - Essential (primary) hypertension SNOMED: 08949767 (3) Anxiety ICD Codes: F41.9 - Anxiety disorder, unspecified SNOMED: 03358040 (4) Chronic back pain ICD Codes: M54.9 - Dorsalgia, unspecified; G89.29 - Other chronic pain SNOMED: 983643717 (5) Muscle spasm ICD Codes: M62.838 - Other muscle spasm SNOMED: 05987722, 62447035 Status: unchanged Assessment/Plan ot pt diet pain control cbc bmp am brotman aru eval Subjective Constitutional: Reports: weakness Allergies: Coded Allergies: IRON (Verified Allergy, Unknown, Rash, 08/09/17) had nausea, vomiting and rashes METHADONE (Verified Allergy, Unknown, 06/04/17) PREGABALIN (Verified Allergy, Unknown, 06/04/17) All Systems: reviewed and negative except above Subjective muscle spam 11/16 Objective Last 24 Hour Vital Signs Date Time Temp Pulse Resp B/P (MAP) Pulse Ox O2 Delivery O2 Flow Rate FiO2 12/15/17 12:04 180/100 12/15/17 12:00 98.2 98 16 170/100 (123) 98 98.2 12/15/17 09:00 Room Air 12/15/17 08:00 98.1 91 16 159/100 (119) 98 98.1 12/15/17 04:00 97.7 84 16 159/97 (117) 98 97.7 12/15/17 00:55 166/94 12/15/17 00:10 97.9 98 18 166/94 (118) 97 97.9 12/14/17 21:00 Room Air 12/14/17 20:00 98.4 111 17 141/95 (110) 99 98.4 12/14/17 18:10 98.6 12/14/17 16:18 98.6 12/14/17 16:00 98.6 95 18 173/100 (124) 97 98.6 12/14/17 15:48 98.3 12/14/17 14:41 98.3 Intake and Output 12/14/17 12/15/17 19:00 07:00 Intake Total 500 ml Balance 500 ml Intake Oral 500 ml # Voids 5 Laboratory Tests 12/15/17 05:55: White Blood Count 6.4, Red Blood Count 3.70L, Hemoglobin 10.8L, Hematocrit 33.4L , Mean Corpuscular Volume 90, Mean Corpuscular Hemoglobin 29.2, Mean Corpuscular Hemoglobin Concent 32.4, Red Cell Distribution Width 12.9, Platelet Count 257, Mean Platelet Volume 5.3L, Neutrophils (%) (Auto) 56.2, Lymphocytes ( %) (Auto) 33.7, Monocytes (%) (Auto) 6.7, Eosinophils (%) (Auto) 2.5, Basophils (%) (Auto) 0.8, Sodium Level 141, Potassium Level 3.9, Chloride Level 105, Carbon Dioxide Level 30, Anion Gap 6, Blood Urea Nitrogen 17, Creatinine 0.8, Estimat Glomerular Filtration Rate > 60, Glucose Level 101, Calcium Level 8.7 Height (Feet): 5 Height (Inches): 3.00 Weight (Pounds): 160 General Appearance: alert EENT: normal ENT inspection Neck: normal alignment Cardiovascular: normal peripheral pulses, normal rate, regular rhythm Respiratory/Chest: chest wall non-tender, lungs clear, normal breath sounds Abdomen: normal bowel sounds, non tender, soft Extremities: normal inspection Edema: no edema noted Arm (L), no edema noted Arm (R), no edema noted Leg (L), no edema noted Leg (R), no edema noted Pedal (L), no edema noted Pedal (R), no edema noted Generalized Neurologic: responsive, motor weakness Skin: normal pigmentation, warm/dry Ernesto Magallon DO Dec 15, 2017 12:23
[2017-12-15 16:00] VITALS: BP 148/92
--- NOTE | 2017-12-15 16:44 | Neurology Progress Note ---
Interim History Interim History Interim History Ms. Carmona feels better. She is much more comfortable. The spasms have been controlled since she was given her Ativan. The pain is also better controlled. She denies any new neurologic symptoms. She specifically denies any increased weakness, numbness, visual problems, or memory problems. Review of Systems Neuro Review of Systems Benign. Objective Physical Exam Last Vital Signs Date Time Temp Pulse Resp B/P (MAP) Pulse Ox O2 Delivery O2 Flow Rate FiO2 12/15/17 16:00 98.2 101 16 148/92 (110) 98 98.2 12/15/17 09:00 Room Air Laboratory Tests Test 12/15/17 05:55 White Blood Count 6.4 K/UL (4.8-10.8) Red Blood Count 3.70 M/UL (4.20-5.40) L Hemoglobin 10.8 G/DL (12.0-16.0) L Hematocrit 33.4 % (37.0-47.0) L Mean Corpuscular Volume 90 FL (80-99) Mean Corpuscular Hemoglobin 29.2 PG (27.0-31.0) Mean Corpuscular Hemoglobin Concent 32.4 G/DL (32.0-36.0) Red Cell Distribution Width 12.9 % (11.6-14.8) Platelet Count 257 K/UL (150-450) Mean Platelet Volume 5.3 FL (6.5-10.1) L Neutrophils (%) (Auto) 56.2 % (45.0-75.0) Lymphocytes (%) (Auto) 33.7 % (20.0-45.0) Monocytes (%) (Auto) 6.7 % (1.0-10.0) Eosinophils (%) (Auto) 2.5 % (0.0-3.0) Basophils (%) (Auto) 0.8 % (0.0-2.0) Sodium Level 141 MMOL/L (136-145) Potassium Level 3.9 MMOL/L (3.5-5.1) Chloride Level 105 MMOL/L (98-107) Carbon Dioxide Level 30 MMOL/L (21-32) Anion Gap 6 mmol/L (5-15) Blood Urea Nitrogen 17 mg/dL (7-18) Creatinine 0.8 MG/DL (0.55-1.30) Estimat Glomerular Filtration Rate > 60 mL/min (>60) Glucose Level 101 MG/DL (74-106) Calcium Level 8.7 MG/DL (8.5-10.1) Neurologic Exam Objective NEUROLOGICAL EXAMINATION: MENTAL STATUS EXAMINATION: She was awake and alert. She was oriented to person, place, and time except for the exact date. She was able to recall 3/3 words immediately and could remember them in 1 and 3 minutes on the second trial. She was able to remember presidents Trump through Venegas senior with hints. Her mathematical skills were minimally impaired. Her visuospatial function was relatively good. SPEECH: She had no dysarthria. LANGUAGE: She had no aphasia. CRANIAL NERVE EXAMINATION: II: The visual montero were intact in the left eye. She had loss of vision with no light perception in the right eye. III, IV & : The external ocular movements were full in the left eye, but restricted in the right eye. The right pupil was 3 mm and did not react to light. The left pupil was 3 mm and reacted sluggishly to light. V: She had normal facial sensations and the temporales, masseters, and pterygoids function normally. VII: She had a right VII central facial paresis. VIII: She was able to hear well bilaterally and had no nystagmus. IX: The palate moved symmetrically on phonation. X: She had no hoarseness of voice. XI: The sternocleidomastoids and trapezii functioned normally. XII: The tongue was in the midline without any fasciculations or atrophy. MOTOR SYSTEM: The tone was normal in all four extremities. Examination of muscle mass revealed no focal wasting. Examination of power revealed G 5/5 power except for G 4+/5 power in the right iliopsoas, and G 0/5 power in the right ankle dorsiflexors and toe extensors, and G 4++/5 in the left iliopsoas. She exhibited give-way weakness in both lower extremities. SENSORY EXAMINATION: She had intact sensations to pinprick, light touch and graphesthesia. REFLEXES: 1+ and bilaterally symmetrical at the biceps, triceps, and brachioradialis, 0 on the right, and 1++ on the left at the knees, 0 at both ankles. The plantar responses were flexor bilaterally. COORDINATION: She performed well on [id number] testing. She was unable to perform [id number] testing. STANCE: She stood up independently. GAIT: She walked independently with a paraparetic gait with a right foot drop. Impression/Recommendations Diagnostic Impression 1. Ms. Naz Carmona is a 52-year-old, right-handed, black lady, who does have a past history of lumbosacral spine disease for which she has had extensive surgery with a failed back associated with chronic low back pain and spasms involving the right lower extremity for which she has had a spinal stimulator placed. 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 2. About 3-4 days prior to admission she developed diarrhoea. This was followed by increased back pain and spasm and then sharp shooting pains and numbness in the legs. As a result of these problems she presented to the [facility] and was admitted. 3. She feels feels better. She is much more comfortable. The spasms have been controlled since she was given her Ativan. The pain is also better controlled. She denies any new neurologic symptoms. 4. 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 5. The CT of the LS spine done on 12/14/17 revealed extensive postsurgical change of the lumbar spine, overall similar in appearance to prior exam of 09/05/17. No evidence of acute fracture. Unchanged dystrophic calcification of the lower lumbar/upper sacral thecal sac. Spinal cord stimulator is in place. 6. The most likely etiology for the patient's low back pain and spasms, and dysesthesias in the lower extremities, would be her underlying spine pathology which has become more symptomatic. Recommendations 1. Continue present management. 2. Pain Management as per her pain management physician. 3. Continue Flexeril for muscle spasms. 4. Continue Lidoderm patch for back pain. 5. Continue Elavil 25 mg q HS. 6. The patient should be mobilized with the help of physical and occupational therapy. Chelly Antoine M.D., M.S.P.H. CHELLY ANTOINE Dec 15, 2017 16:44
[2017-12-15 20:00] VITALS: BP 152/97
[2017-12-16] VITALS: BP 153/81
[2017-12-16] MEDS: DiphenhydrAMINE 50mg/ml Inj IVP PRN ×3 (03:27→19:16)
[2017-12-16] MEDS: MS Contin 15mg tab ORAL SCH ×3 (03:27→19:17)
[2017-12-16 04:00] VITALS: BP 145/72
[2017-12-16 06:23] LABS: BASOPHILS % (AUTO) 0.9 % (0.0-2.0); EOSINOPHILS % (AUTO) 2.7 % (0.0-3.0); HEMATOCRIT 33.9 % (37.0-47.0); HEMOGLOBIN 10.9 G/DL (12.0-16.0); LYMPHOCYTES % (AUTO) 31.1 % (20.0-45.0); MEAN CORPUSCULAR VOLUME 91 FL (80-99); MONOCYTES % (AUTO) 6.4 % (1.0-10.0); PLATELET COUNT 264 K/UL (150-450); RED BLOOD COUNT 3.74 M/UL (4.20-5.40); RED CELL DISTRIBUTION WIDTH 12.8 % (11.6-14.8); WHITE BLOOD COUNT 7.1 K/UL (4.8-10.8)
[2017-12-16 06:44] LABS: ANION GAP 6 mmol/L (5-15); BLOOD UREA NITROGEN 21 mg/dL (7-18); CALCIUM 8.7 MG/DL (8.5-10.1); CARBON DIOXIDE 29 MMOL/L (21-32); CHLORIDE 106 MMOL/L (98-107); CREATININE 0.8 MG/DL (0.55-1.30); POTASSIUM 4.1 MMOL/L (3.5-5.1); SODIUM 141 MMOL/L (136-145)
[2017-12-16 08:00] VITALS: BP 146/99
--- NOTE | 2017-12-16 08:07 | General Progress Note ---
Assessment/Plan Assessment/Plan (1) Lumbar DDD (2) Lumbar spondylosis (4) Lumbar Herniated disc (5) Lumbar Radiculopathy (6) FBSS Patient to be continued on Neurontin, Dilaudid IV, Ativan, Valium and Morphine ER. D/w Dr. Singh and he concurred. Subjective Date patient seen: Dec 16, 2017 Time patient seen: 07:30 - am Allergies: Coded Allergies: IRON (Verified Allergy, Unknown, Rash, 08/09/17) had nausea, vomiting and rashes METHADONE (Verified Allergy, Unknown, 06/04/17) PREGABALIN (Verified Allergy, Unknown, 06/04/17) Subjective REVIEW OF SYSTEMS: Denies rash, fever, chills, sweating, dizziness, drowsiness, blurred vision, sore throat, or change in her weight. No shortness of breath or chest pain. No nausea, vomiting, diarrhea, or blood in stool or urine. No bowel or bladder incontinence. No dysuria. She is complaining of low back pain. SUBJECTIVE: Patient has been tolerating the pain well on the Morphine ER and Dilaudid. Doing PT and having less spasms. Possible rehab at [facility]. She has no new complaints Objective Last 24 Hour Vital Signs Date Time Temp Pulse Resp B/P (MAP) Pulse Ox O2 Delivery O2 Flow Rate FiO2 12/16/17 04:00 98.6 100 18 145/72 (96) 100 98.6 12/16/17 02:07 98.2 12/16/17 00:00 98.2 102 18 153/81 (105) 99 98.2 12/15/17 21:00 Room Air 12/15/17 20:00 98.2 82 18 152/97 (115) 99 98.2 12/15/17 16:00 98.2 101 16 148/92 (110) 98 98.2 12/15/17 13:12 98.2 12/15/17 12:04 180/100 12/15/17 12:00 98.2 98 16 170/100 (123) 98 98.2 12/15/17 09:00 Room Air Intake and Output 12/15/17 12/16/17 19:00 07:00 Intake Total 960 ml Output Total 600 ml Balance 360 ml Intake Oral 960 ml Output Urine Total 600 ml # Voids 2 4 # Bowel Movements 1 Laboratory Tests 12/16/17 02:45: Stool Occult Blood Negative 12/16/17 06:00: White Blood Count 7.1, Red Blood Count 3.74L, Hemoglobin 10.9L, Hematocrit 33.9L , Mean Corpuscular Volume 91, Mean Corpuscular Hemoglobin 29.2, Mean Corpuscular Hemoglobin Concent 32.3, Red Cell Distribution Width 12.8, Platelet Count 264, Mean Platelet Volume 5.2L, Neutrophils (%) (Auto) 59.0, Lymphocytes ( %) (Auto) 31.1, Monocytes (%) (Auto) 6.4, Eosinophils (%) (Auto) 2.7, Basophils (%) (Auto) 0.9, Sodium Level 141, Potassium Level 4.1, Chloride Level 106, Carbon Dioxide Level 29, Anion Gap 6, Blood Urea Nitrogen 21H, Creatinine 0.8, Estimat Glomerular Filtration Rate > 60, Glucose Level 96, Calcium Level 8.7 Height (Feet): 5 Height (Inches): 3.00 Weight (Pounds): 158 Objective GENERAL: Alert, awake, and oriented x3. HEENT: PERRLA on the left. On the right, prosthetic eye noted. NECK: Range of motion is full in all directions. LUNGS: Clear. HEART: Regular. ABDOMEN: Tenderness to palpation. EXTREMITIES: No cyanosis. No clubbing. NEURO: No changes. Tal Hewitt Dec 16, 2017 08:07
[2017-12-16] MEDS: Docusate 100mg cap ORAL SCH ×2 (08:51→17:35)
[2017-12-16] MEDS: DULoxetine 30mg cap ORAL SCH (08:51)
[2017-12-16] MEDS: LORazepam Inj 2mg/ml 1ml IV PRN ×4 (08:52→21:35)
[2017-12-16] MEDS: Cyclobenzaprine 10mg Tab ORAL SCH ×3 (08:52→17:35)
[2017-12-16] MEDS: Heparin 5000 units/ml inj SUBQ SCH ×2 (08:53→21:33)
[2017-12-16] MEDS: Miralax 17gm pkt ORAL PRN (09:02)
--- NOTE | 2017-12-16 11:14 | Neurology Progress Note ---
Interim History Interim History Interim History Ms. Carmona continues to feel better. She looks more comfortable. She still complains of leg and back spasms but they are tolerable. The pain is better controlled. She denies any new neurologic symptoms. She specifically denies any increased weakness, numbness, visual problems, or memory problems. Plans are to go home today. Review of Systems Neuro Review of Systems Benign. Objective Physical Exam Last Vital Signs Date Time Temp Pulse Resp B/P (MAP) Pulse Ox O2 Delivery O2 Flow Rate FiO2 12/16/17 09:00 Room Air 12/16/17 08:00 97.6 99 18 146/99 (115) 100 97.6 Laboratory Tests Test 12/16/17 02:45 12/16/17 06:00 Stool Occult Blood Negative (NEGATIVE) White Blood Count 7.1 K/UL (4.8-10.8) Red Blood Count 3.74 M/UL (4.20-5.40) L Hemoglobin 10.9 G/DL (12.0-16.0) L Hematocrit 33.9 % (37.0-47.0) L Mean Corpuscular Volume 91 FL (80-99) Mean Corpuscular Hemoglobin 29.2 PG (27.0-31.0) Mean Corpuscular Hemoglobin Concent 32.3 G/DL (32.0-36.0) Red Cell Distribution Width 12.8 % (11.6-14.8) Platelet Count 264 K/UL (150-450) Mean Platelet Volume 5.2 FL (6.5-10.1) L Neutrophils (%) (Auto) 59.0 % (45.0-75.0) Lymphocytes (%) (Auto) 31.1 % (20.0-45.0) Monocytes (%) (Auto) 6.4 % (1.0-10.0) Eosinophils (%) (Auto) 2.7 % (0.0-3.0) Basophils (%) (Auto) 0.9 % (0.0-2.0) Sodium Level 141 MMOL/L (136-145) Potassium Level 4.1 MMOL/L (3.5-5.1) Chloride Level 106 MMOL/L (98-107) Carbon Dioxide Level 29 MMOL/L (21-32) Anion Gap 6 mmol/L (5-15) Blood Urea Nitrogen 21 mg/dL (7-18) H Creatinine 0.8 MG/DL (0.55-1.30) Estimat Glomerular Filtration Rate > 60 mL/min (>60) Glucose Level 96 MG/DL (74-106) Calcium Level 8.7 MG/DL (8.5-10.1) Neurologic Exam Objective NEUROLOGICAL EXAMINATION: MENTAL STATUS EXAMINATION: She was awake and alert. She was oriented to person, place, and time except for the exact date. She was able to recall 3/3 words immediately and could remember them in 1 and 3 minutes on the second trial. She was able to remember presidents Trump through Venegas senior with hints. Her mathematical skills were minimally impaired. Her visuospatial function was relatively good. SPEECH: She had no dysarthria. LANGUAGE: She had no aphasia. CRANIAL NERVE EXAMINATION: II: The visual montero were intact in the left eye. She had loss of vision with no light perception in the right eye. III, IV & : The external ocular movements were full in the left eye, but restricted in the right eye. The right pupil was 3 mm and did not react to light. The left pupil was 3 mm and reacted sluggishly to light. V: She had normal facial sensations and the temporales, masseters, and pterygoids function normally. VII: She had a right VII central facial paresis. VIII: She was able to hear well bilaterally and had no nystagmus. IX: The palate moved symmetrically on phonation. X: She had no hoarseness of voice. XI: The sternocleidomastoids and trapezii functioned normally. XII: The tongue was in the midline without any fasciculations or atrophy. MOTOR SYSTEM: The tone was normal in all four extremities. Examination of muscle mass revealed no focal wasting. Examination of power revealed G 5/5 power except for G 4+/5 power in the right iliopsoas, and G 0/5 power in the right ankle dorsiflexors and toe extensors, and G 4++/5 in the left iliopsoas. She exhibited give-way weakness in both lower extremities. SENSORY EXAMINATION: She had intact sensations to pinprick, light touch and graphesthesia. REFLEXES: 1+ and bilaterally symmetrical at the biceps, triceps, and brachioradialis, 0 on the right, and 1++ on the left at the knees, 0 at both ankles. The plantar responses were flexor bilaterally. COORDINATION: She performed well on [id number] testing. She was unable to perform [id number] testing. STANCE: She stood up independently. GAIT: She walked independently with a paraparetic gait with a right foot drop. Impression/Recommendations Diagnostic Impression 1. Ms. Naz Carmona is a 52-year-old, right-handed, black lady, who does have a past history of lumbosacral spine disease for which she has had extensive surgery with a failed back associated with chronic low back pain and spasms involving the right lower extremity for which she has had a spinal stimulator placed. 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 2. About 3-4 days prior to admission she developed diarrhoea. This was followed by increased back pain and spasm and then sharp shooting pains and numbness in the legs. As a result of these problems she presented to the [facility] and was admitted. 3. She continues to feel better. She looks more comfortable. She still complains of leg and back spasms but they are tolerable. The pain is better controlled. She denies any new neurologic symptoms. She specifically denies any increased weakness, numbness, visual problems, or memory problems. Plans are to go home today. 4. 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 5. The CT of the LS spine done on 12/14/17 revealed extensive postsurgical change of the lumbar spine, overall similar in appearance to prior exam of 09/05/17. No evidence of acute fracture. Unchanged dystrophic calcification of the lower lumbar/upper sacral thecal sac. Spinal cord stimulator is in place. 6. The most likely etiology for the patient's low back pain and spasms, and dysesthesias in the lower extremities, would be her underlying spine pathology which has become more symptomatic. She however is improving now. Recommendations 1. Continue present management. 2. Pain Management as per her pain management physician. 3. Continue Flexeril for muscle spasms and make sure to take it every 12 hours. 4. Continue Lidoderm patch for back pain. 5. Continue Elavil 25 mg q HS. 6. The patient should be mobilized with the help of physical and occupational therapy. 7. No neurologic contraindications to go home today. Chelly Antoine M.D., M.S.P.Maddy. CHELLY ANTOINE Dec 16, 2017 11:14
[2017-12-16 12:00] VITALS: BP 160/110
--- NOTE | 2017-12-16 12:55 | General Progress Note ---
Assessment/Plan Problem List: (1) Chronic back pain ICD Codes: M54.9 - Dorsalgia, unspecified; G89.29 - Other chronic pain SNOMED: 381244500 (2) Opioid dependence ICD Codes: F11.20 - Opioid dependence, uncomplicated SNOMED: 12443253 (3) Anxiety ICD Codes: F41.9 - Anxiety disorder, unspecified SNOMED: 99486669 (4) abdominal pain (5) Anemia ICD Codes: D64.9 - Anemia, unspecified SNOMED: 452512582 (6) HTN (hypertension) ICD Codes: I10 - Essential (primary) hypertension SNOMED: 83381697 Assessment/Plan anemia work up bowel regimen pain control stable H&H neg stool ob getting dc today needs out patient fu for EGd and colonoscopy Subjective ROS Limited/Unobtainable: Yes Allergies: Coded Allergies: IRON (Verified Allergy, Unknown, Rash, 08/09/17) had nausea, vomiting and rashes METHADONE (Verified Allergy, Unknown, 06/04/17) PREGABALIN (Verified Allergy, Unknown, 06/04/17) Subjective abd pain Objective Last 24 Hour Vital Signs Date Time Temp Pulse Resp B/P (MAP) Pulse Ox O2 Delivery O2 Flow Rate FiO2 12/16/17 12:00 98.0 92 18 160/110 (127) 100 98.0 12/16/17 09:00 Room Air 12/16/17 08:00 97.6 99 18 146/99 (115) 100 97.6 12/16/17 04:00 98.6 100 18 145/72 (96) 100 98.6 12/16/17 02:07 98.2 12/16/17 00:00 98.2 102 18 153/81 (105) 99 98.2 12/15/17 21:00 Room Air 12/15/17 20:00 98.2 82 18 152/97 (115) 99 98.2 12/15/17 16:00 98.2 101 16 148/92 (110) 98 98.2 12/15/17 13:12 98.2 Intake and Output 12/15/17 12/16/17 19:00 07:00 Intake Total 960 ml Output Total 600 ml Balance 360 ml Intake Oral 960 ml Output Urine Total 600 ml # Voids 2 4 # Bowel Movements 1 Laboratory Tests 12/16/17 02:45: Stool Occult Blood Negative 12/16/17 06:00: White Blood Count 7.1, Red Blood Count 3.74L, Hemoglobin 10.9L, Hematocrit 33.9L , Mean Corpuscular Volume 91, Mean Corpuscular Hemoglobin 29.2, Mean Corpuscular Hemoglobin Concent 32.3, Red Cell Distribution Width 12.8, Platelet Count 264, Mean Platelet Volume 5.2L, Neutrophils (%) (Auto) 59.0, Lymphocytes ( %) (Auto) 31.1, Monocytes (%) (Auto) 6.4, Eosinophils (%) (Auto) 2.7, Basophils (%) (Auto) 0.9, Sodium Level 141, Potassium Level 4.1, Chloride Level 106, Carbon Dioxide Level 29, Anion Gap 6, Blood Urea Nitrogen 21H, Creatinine 0.8, Estimat Glomerular Filtration Rate > 60, Glucose Level 96, Calcium Level 8.7 Height (Feet): 5 Height (Inches): 3.00 Weight (Pounds): 158 General Appearance: alert EENT: normal ENT inspection Neck: supple Cardiovascular: normal rate Respiratory/Chest: decreased breath sounds Abdomen: normal bowel sounds, non tender, soft Extremities: non-tender Harley Haines MD Dec 16, 2017 12:55
--- NOTE | 2017-12-16 13:51 | General Progress Note ---
Assessment/Plan Problem List: (1) Chronic pain syndrome ICD Codes: G89.4 - Chronic pain syndrome SNOMED: 184390437 (2) HTN (hypertension) ICD Codes: I10 - Essential (primary) hypertension SNOMED: 23740444 (3) Anxiety ICD Codes: F41.9 - Anxiety disorder, unspecified SNOMED: 88531896 (4) Chronic back pain ICD Codes: M54.9 - Dorsalgia, unspecified; G89.29 - Other chronic pain SNOMED: 466805063 (5) Muscle spasm ICD Codes: M62.838 - Other muscle spasm SNOMED: 68950024, 52141589 Status: stable, progressing Assessment/Plan ot pt diet pain control cbc bmp am dc plan Subjective Constitutional: Reports: weakness Allergies: Coded Allergies: IRON (Verified Allergy, Unknown, Rash, 08/09/17) had nausea, vomiting and rashes METHADONE (Verified Allergy, Unknown, 06/04/17) PREGABALIN (Verified Allergy, Unknown, 06/04/17) All Systems: reviewed and negative except above Subjective muscle spam 11/16 Objective Last 24 Hour Vital Signs Date Time Temp Pulse Resp B/P (MAP) Pulse Ox O2 Delivery O2 Flow Rate FiO2 12/16/17 12:00 98.0 92 18 160/110 (127) 100 98.0 12/16/17 09:00 Room Air 12/16/17 08:00 97.6 99 18 146/99 (115) 100 97.6 12/16/17 04:00 98.6 100 18 145/72 (96) 100 98.6 12/16/17 02:07 98.2 12/16/17 00:00 98.2 102 18 153/81 (105) 99 98.2 12/15/17 21:00 Room Air 12/15/17 20:00 98.2 82 18 152/97 (115) 99 98.2 12/15/17 16:00 98.2 101 16 148/92 (110) 98 98.2 Intake and Output 12/15/17 12/16/17 19:00 07:00 Intake Total 960 ml Output Total 600 ml Balance 360 ml Intake Oral 960 ml Output Urine Total 600 ml # Voids 2 4 # Bowel Movements 1 Laboratory Tests 12/16/17 02:45: Stool Occult Blood Negative 12/16/17 06:00: White Blood Count 7.1, Red Blood Count 3.74L, Hemoglobin 10.9L, Hematocrit 33.9L , Mean Corpuscular Volume 91, Mean Corpuscular Hemoglobin 29.2, Mean Corpuscular Hemoglobin Concent 32.3, Red Cell Distribution Width 12.8, Platelet Count 264, Mean Platelet Volume 5.2L, Neutrophils (%) (Auto) 59.0, Lymphocytes ( %) (Auto) 31.1, Monocytes (%) (Auto) 6.4, Eosinophils (%) (Auto) 2.7, Basophils (%) (Auto) 0.9, Sodium Level 141, Potassium Level 4.1, Chloride Level 106, Carbon Dioxide Level 29, Anion Gap 6, Blood Urea Nitrogen 21H, Creatinine 0.8, Estimat Glomerular Filtration Rate > 60, Glucose Level 96, Calcium Level 8.7 Height (Feet): 5 Height (Inches): 3.00 Weight (Pounds): 158 General Appearance: lethargic EENT: normal ENT inspection Neck: normal alignment Cardiovascular: normal peripheral pulses, normal rate, regular rhythm Respiratory/Chest: chest wall non-tender, lungs clear, normal breath sounds Abdomen: normal bowel sounds, non tender, soft Extremities: normal inspection Edema: no edema noted Arm (L), no edema noted Arm (R), no edema noted Leg (L), no edema noted Leg (R), no edema noted Pedal (L), no edema noted Pedal (R), no edema noted Generalized Neurologic: responsive, motor weakness Skin: normal pigmentation, warm/dry Ernesto Magallon DO Dec 16, 2017 13:51
[2017-12-16 16:00] VITALS: BP 153/102
--- NOTE | 2017-12-16 18:45 | Consultation ---
DATE OF CONSULTATION: 12/15/2017 PSYCHOTHERAPY CONSULTATION PROGRESS NOTE CONSULTING PHYSICIAN: Víctor Woo PsyD. TREATING ATTENDING PHYSICIAN: Ernesto Magallon D.O. HISTORY OF PRESENT ILLNESS: This patient is a 52-year-old female patient from [place], [place]. This patient is experiencing uncontrolled pain, dizziness, and anxious, tearful. The patient has a history of anxiety and depression and because of anxiety disorder . The patient states that she is being very helpless . PAST MEDICAL HISTORY: . The patient states that she has been crying control her . MENTAL STATUS EXAMINATION: The patient is alert and oriented to person, place, and time, but she has some . Mood is irritable. Affect is labile. Thought process is disorganized. Thought content is paranoid. Poor attention and concentration. Poor insight and judgement and impulse control. DIAGNOSIS: Generalized anxiety disorder. PLAN: severe anxiety at this time. Encouraging the patient to participate in treatment milieu. Continue with behavioral management. This clinician has reviewed the patient's chart and discussed the treatment with treatment team. . Víctor Woo PsyD. DR: SCOTT JOB#: [id number] CC:
[2017-12-16 20:00] VITALS: BP 152/102
[2017-12-17] VITALS: BP 147/100
--- NOTE | 2017-12-17 01:00 | Consultation ---
DATE OF CONSULTATION: 12/16/2017 CONSULTING PHYSICIAN: Amanda Crews M.D. HISTORY: The patient is a 52-year-old female patient. She came in because of uncontrolled pain. Mood lability, had a little bit of anxiety, depression, worsened by stress of her pain and medical illness. Still complaining of pain, still irritable, diffuse, very anxious, that is why she requires daily psychiatric consultation according to her attending physician. MENTAL STATUS EXAMINATION: This is a 52-year-old female patient. Appearance disheveled. Attitude, irritable and agitated. Affect, guarded and restricted. Intellect poor. Mood depressed and anxious. Motor activity, psychomotor agitation. Attention span is poor Orientation x2. Speech is pressured. Thought process, disorganized and illogical. Thought content, . 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 PLAN: Treated with Cymbalta 30 mg daily, Neurontin 300 mg three times a day. Provided 20 minutes of cognitive behavioral therapy to identify automatic negative thoughts and help convert to positive thoughts. Chart reviewed. Discussed with staff. Seen and assessed in her room. Amanda Crews M.D. DR: JALEEL JOB#: [id number] CC:
[2017-12-17] MEDS: MS Contin 15mg tab ORAL SCH ×2 (03:21→11:03)
[2017-12-17] MEDS: DiphenhydrAMINE 50mg/ml Inj IVP PRN ×2 (03:21→12:35)
[2017-12-17 04:00] VITALS: BP 156/99
[2017-12-17 07:36] LABS: EOSINOPHILS % (AUTO) 3.4 % (0.0-3.0); HEMATOCRIT 33.7 % (37.0-47.0); HEMOGLOBIN 10.9 G/DL (12.0-16.0); LYMPHOCYTES % (AUTO) 25.1 % (20.0-45.0); MEAN CORPUSCULAR VOLUME 90 FL (80-99); MONOCYTES % (AUTO) 5.7 % (1.0-10.0); NEUTROPHILS % (AUTO) 64.7 % (45.0-75.0); PLATELET COUNT 282 K/UL (150-450); RED BLOOD COUNT 3.74 M/UL (4.20-5.40); RED CELL DISTRIBUTION WIDTH 12.9 % (11.6-14.8); WHITE BLOOD COUNT 7.1 K/UL (4.8-10.8)
[2017-12-17 07:59] LABS: ANION GAP 5 mmol/L (5-15); BLOOD UREA NITROGEN 18 mg/dL (7-18); CALCIUM 8.9 MG/DL (8.5-10.1); CARBON DIOXIDE 31 MMOL/L (21-32); CHLORIDE 103 MMOL/L (98-107); CREATININE 0.8 MG/DL (0.55-1.30); POTASSIUM 3.5 MMOL/L (3.5-5.1); SODIUM 139 MMOL/L (136-145)
[2017-12-17 08:00] VITALS: BP 149/99
--- NOTE | 2017-12-17 08:51 | General Progress Note ---
Assessment/Plan Assessment/Plan (1) Lumbar DDD (2) Lumbar spondylosis (4) Lumbar Herniated disc (5) Lumbar Radiculopathy (6) FBSS Patient to be continued on Neurontin, Dilaudid IV, Ativan, Valium and Morphine ER. D/w Dr. Singh and he concurred. Subjective Date patient seen: Dec 17, 2017 Time patient seen: 07:15 - am Allergies: Coded Allergies: IRON (Verified Allergy, Unknown, Rash, 08/09/17) had nausea, vomiting and rashes METHADONE (Verified Allergy, Unknown, 06/04/17) PREGABALIN (Verified Allergy, Unknown, 06/04/17) Subjective REVIEW OF SYSTEMS: Denies rash, fever, chills, sweating, dizziness, drowsiness, blurred vision, sore throat, or change in her weight. No shortness of breath or chest pain. No nausea, vomiting, diarrhea, or blood in stool or urine. No bowel or bladder incontinence. No dysuria. She is complaining of low back pain. SUBJECTIVE: Patient is in bed and shows no signs of pain. Her pain has been well tolerated on the Morphine ER and Dilaudid. Will be discharged home later today as per Retail Manager and no RX needed for pain medication as she has medication at home. She was advised to f/u with her pain specialist as an outpt. Objective Last 24 Hour Vital Signs Date Time Temp Pulse Resp B/P (MAP) Pulse Ox O2 Delivery O2 Flow Rate FiO2 12/17/17 08:00 98.8 116 21 149/99 (116) 96 98.8 12/17/17 04:00 97.7 95 20 156/99 (118) 98 97.7 12/17/17 00:00 98.7 100 20 147/100 (116) 100 98.7 12/16/17 21:00 Room Air 12/16/17 20:00 98.1 105 20 152/102 (119) 99 98.1 12/16/17 16:00 98.4 98 18 153/102 (119) 100 98.4 12/16/17 12:00 98.0 92 18 160/110 (127) 100 98.0 12/16/17 09:00 Room Air Intake and Output 12/16/17 12/17/17 19:00 07:00 Intake Total 960 ml Balance 960 ml Intake Oral 960 ml # Voids 3 3 Laboratory Tests 12/17/17 06:10: White Blood Count 7.1, Red Blood Count 3.74L, Hemoglobin 10.9L, Hematocrit 33.7L , Mean Corpuscular Volume 90, Mean Corpuscular Hemoglobin 29.1, Mean Corpuscular Hemoglobin Concent 32.3, Red Cell Distribution Width 12.9, Platelet Count 282, Mean Platelet Volume 5.3L, Neutrophils (%) (Auto) 64.7, Lymphocytes ( %) (Auto) 25.1, Monocytes (%) (Auto) 5.7, Eosinophils (%) (Auto) 3.4H, Basophils (%) (Auto) 1.0, Sodium Level 139, Potassium Level 3.5, Chloride Level 103, Carbon Dioxide Level 31, Anion Gap 5, Blood Urea Nitrogen 18, Creatinine 0.8, Estimat Glomerular Filtration Rate > 60, Glucose Level 121H, Calcium Level 8.9 Height (Feet): 5 Height (Inches): 3.00 Weight (Pounds): 158 Objective GENERAL: Alert, awake, and oriented x3. HEENT: PERRLA on the left. On the right, prosthetic eye noted. NECK: Range of motion is full in all directions. LUNGS: Clear. HEART: Regular. ABDOMEN: Tenderness to palpation. EXTREMITIES: No cyanosis. No clubbing. NEURO: No changes. Tal Hewitt Dec 17, 2017 08:51
[2017-12-17] MEDS: Docusate 100mg cap ORAL SCH (09:13)
[2017-12-17] MEDS: DULoxetine 30mg cap ORAL SCH (09:13)
[2017-12-17] MEDS: Cyclobenzaprine 10mg Tab ORAL SCH ×2 (09:14→13:00)
[2017-12-17] MEDS: Heparin 5000 units/ml inj SUBQ SCH (09:16)
--- NOTE | 2017-12-17 10:12 | General Progress Note ---
Assessment/Plan Problem List: (1) Chronic back pain ICD Codes: M54.9 - Dorsalgia, unspecified; G89.29 - Other chronic pain SNOMED: 752937755 (2) Opioid dependence ICD Codes: F11.20 - Opioid dependence, uncomplicated SNOMED: 33323378 (3) Anxiety ICD Codes: F41.9 - Anxiety disorder, unspecified SNOMED: 56066002 (4) abdominal pain (5) Anemia ICD Codes: D64.9 - Anemia, unspecified SNOMED: 013805277 (6) HTN (hypertension) ICD Codes: I10 - Essential (primary) hypertension SNOMED: 27532789 Assessment/Plan anemia work up bowel regimen pain control stable H&H neg stool ob needs out patient fu for EGD and colonoscopy Subjective ROS Limited/Unobtainable: Yes Allergies: Coded Allergies: IRON (Verified Allergy, Unknown, Rash, 08/09/17) had nausea, vomiting and rashes METHADONE (Verified Allergy, Unknown, 06/04/17) PREGABALIN (Verified Allergy, Unknown, 06/04/17) Subjective abd pain loose stools Objective Last 24 Hour Vital Signs Date Time Temp Pulse Resp B/P (MAP) Pulse Ox O2 Delivery O2 Flow Rate FiO2 12/17/17 09:14 98.8 12/17/17 08:00 98.8 116 21 149/99 (116) 96 98.8 12/17/17 04:00 97.7 95 20 156/99 (118) 98 97.7 12/17/17 00:00 98.7 100 20 147/100 (116) 100 98.7 12/16/17 21:00 Room Air 12/16/17 20:00 98.1 105 20 152/102 (119) 99 98.1 12/16/17 16:00 98.4 98 18 153/102 (119) 100 98.4 12/16/17 12:00 98.0 92 18 160/110 (127) 100 98.0 Intake and Output 12/16/17 12/17/17 19:00 07:00 Intake Total 960 ml Balance 960 ml Intake Oral 960 ml # Voids 3 3 Laboratory Tests 12/17/17 06:10: White Blood Count 7.1, Red Blood Count 3.74L, Hemoglobin 10.9L, Hematocrit 33.7L , Mean Corpuscular Volume 90, Mean Corpuscular Hemoglobin 29.1, Mean Corpuscular Hemoglobin Concent 32.3, Red Cell Distribution Width 12.9, Platelet Count 282, Mean Platelet Volume 5.3L, Neutrophils (%) (Auto) 64.7, Lymphocytes ( %) (Auto) 25.1, Monocytes (%) (Auto) 5.7, Eosinophils (%) (Auto) 3.4H, Basophils (%) (Auto) 1.0, Sodium Level 139, Potassium Level 3.5, Chloride Level 103, Carbon Dioxide Level 31, Anion Gap 5, Blood Urea Nitrogen 18, Creatinine 0.8, Estimat Glomerular Filtration Rate > 60, Glucose Level 121H, Calcium Level 8.9 Height (Feet): 5 Height (Inches): 3.00 Weight (Pounds): 158 General Appearance: alert EENT: normal ENT inspection Neck: supple Cardiovascular: normal rate Respiratory/Chest: decreased breath sounds Abdomen: normal bowel sounds, non tender, soft Extremities: non-tender Harley Haines MD Dec 17, 2017 10:12
--- NOTE | 2017-12-17 11:26 | General Progress Note ---
Assessment/Plan Problem List: (1) Chronic pain syndrome ICD Codes: G89.4 - Chronic pain syndrome SNOMED: 217575338 (2) HTN (hypertension) ICD Codes: I10 - Essential (primary) hypertension SNOMED: 39176604 (3) Anxiety ICD Codes: F41.9 - Anxiety disorder, unspecified SNOMED: 08925159 (4) Chronic back pain ICD Codes: M54.9 - Dorsalgia, unspecified; G89.29 - Other chronic pain SNOMED: 930192136 (5) Muscle spasm ICD Codes: M62.838 - Other muscle spasm SNOMED: 74196814, 97570104 Status: stable, progressing Assessment/Plan ot pt diet pain control dc w hh Subjective Constitutional: Reports: weakness Allergies: Coded Allergies: IRON (Verified Allergy, Unknown, Rash, 08/09/17) had nausea, vomiting and rashes METHADONE (Verified Allergy, Unknown, 06/04/17) PREGABALIN (Verified Allergy, Unknown, 06/04/17) All Systems: reviewed and negative except above Subjective sl gen pain Objective Last 24 Hour Vital Signs Date Time Temp Pulse Resp B/P (MAP) Pulse Ox O2 Delivery O2 Flow Rate FiO2 12/17/17 11:03 98.8 12/17/17 10:40 98.8 12/17/17 10:13 98.8 12/17/17 10:10 98.8 12/17/17 09:14 98.8 12/17/17 08:00 98.8 116 21 149/99 (116) 96 98.8 12/17/17 04:00 97.7 95 20 156/99 (118) 98 97.7 12/17/17 00:00 98.7 100 20 147/100 (116) 100 98.7 12/16/17 21:00 Room Air 12/16/17 20:00 98.1 105 20 152/102 (119) 99 98.1 12/16/17 16:00 98.4 98 18 153/102 (119) 100 98.4 12/16/17 12:00 98.0 92 18 160/110 (127) 100 98.0 Intake and Output 12/16/17 12/17/17 19:00 07:00 Intake Total 960 ml Balance 960 ml Intake Oral 960 ml # Voids 3 3 Laboratory Tests 12/17/17 06:10: White Blood Count 7.1, Red Blood Count 3.74L, Hemoglobin 10.9L, Hematocrit 33.7L , Mean Corpuscular Volume 90, Mean Corpuscular Hemoglobin 29.1, Mean Corpuscular Hemoglobin Concent 32.3, Red Cell Distribution Width 12.9, Platelet Count 282, Mean Platelet Volume 5.3L, Neutrophils (%) (Auto) 64.7, Lymphocytes ( %) (Auto) 25.1, Monocytes (%) (Auto) 5.7, Eosinophils (%) (Auto) 3.4H, Basophils (%) (Auto) 1.0, Sodium Level 139, Potassium Level 3.5, Chloride Level 103, Carbon Dioxide Level 31, Anion Gap 5, Blood Urea Nitrogen 18, Creatinine 0.8, Estimat Glomerular Filtration Rate > 60, Glucose Level 121H, Calcium Level 8.9 Height (Feet): 5 Height (Inches): 3.00 Weight (Pounds): 158 General Appearance: lethargic EENT: normal ENT inspection Neck: normal alignment Cardiovascular: normal peripheral pulses, normal rate, regular rhythm Respiratory/Chest: chest wall non-tender, lungs clear, normal breath sounds Abdomen: normal bowel sounds, non tender, soft Extremities: normal inspection Edema: no edema noted Arm (L), no edema noted Arm (R), no edema noted Leg (L), no edema noted Leg (R), no edema noted Pedal (L), no edema noted Pedal (R), no edema noted Generalized Neurologic: responsive, motor weakness Skin: normal pigmentation, warm/dry Ernesto Magallon DO Dec 17, 2017 11:26
[2017-12-17 11:58] VITALS: BP 154/109
[2017-12-17] MEDS ORDERED: LIDODERM700 M1 TOPIC (12:17)
[2017-12-17] MEDS ORDERED: Heplock Flush 100 units/ml 3 ml syr IV SCH (13:00)
--- NOTE | 2017-12-17 13:30 | Neurology Progress Note ---
Interim History Interim History Interim History Ms. Carmona feels better. She looks more comfortable. She still complains of leg and back spasms but they are tolerable. The pain is better controlled. She denies any new neurologic symptoms. She specifically denies any increased weakness, numbness, visual problems, or memory problems. Plans are to go home today. Review of Systems Neuro Review of Systems Benign. Objective Physical Exam Last Vital Signs Date Time Temp Pulse Resp B/P (MAP) Pulse Ox O2 Delivery O2 Flow Rate FiO2 12/17/17 12:02 97.9 12/17/17 11:58 97 22 154/109 (124) 97 12/17/17 08:20 Room Air Laboratory Tests Test 12/17/17 06:10 White Blood Count 7.1 K/UL (4.8-10.8) Red Blood Count 3.74 M/UL (4.20-5.40) L Hemoglobin 10.9 G/DL (12.0-16.0) L Hematocrit 33.7 % (37.0-47.0) L Mean Corpuscular Volume 90 FL (80-99) Mean Corpuscular Hemoglobin 29.1 PG (27.0-31.0) Mean Corpuscular Hemoglobin Concent 32.3 G/DL (32.0-36.0) Red Cell Distribution Width 12.9 % (11.6-14.8) Platelet Count 282 K/UL (150-450) Mean Platelet Volume 5.3 FL (6.5-10.1) L Neutrophils (%) (Auto) 64.7 % (45.0-75.0) Lymphocytes (%) (Auto) 25.1 % (20.0-45.0) Monocytes (%) (Auto) 5.7 % (1.0-10.0) Eosinophils (%) (Auto) 3.4 % (0.0-3.0) H Basophils (%) (Auto) 1.0 % (0.0-2.0) Sodium Level 139 MMOL/L (136-145) Potassium Level 3.5 MMOL/L (3.5-5.1) Chloride Level 103 MMOL/L (98-107) Carbon Dioxide Level 31 MMOL/L (21-32) Anion Gap 5 mmol/L (5-15) Blood Urea Nitrogen 18 mg/dL (7-18) Creatinine 0.8 MG/DL (0.55-1.30) Estimat Glomerular Filtration Rate > 60 mL/min (>60) Glucose Level 121 MG/DL (74-106) H Calcium Level 8.9 MG/DL (8.5-10.1) Neurologic Exam Objective NEUROLOGICAL EXAMINATION: MENTAL STATUS EXAMINATION: She was awake and alert. She was oriented to person, place, and time except for the exact date. She was able to recall 3/3 words immediately and could remember them in 1 and 3 minutes on the second trial. She was able to remember presidents Trump through Venegas senior with hints. Her mathematical skills were minimally impaired. Her visuospatial function was relatively good. SPEECH: She had no dysarthria. LANGUAGE: She had no aphasia. CRANIAL NERVE EXAMINATION: II: The visual montero were intact in the left eye. She had loss of vision with no light perception in the right eye. III, IV & : The external ocular movements were full in the left eye, but restricted in the right eye. The right pupil was 3 mm and did not react to light. The left pupil was 3 mm and reacted sluggishly to light. V: She had normal facial sensations and the temporales, masseters, and pterygoids function normally. VII: She had a right VII central facial paresis. VIII: She was able to hear well bilaterally and had no nystagmus. IX: The palate moved symmetrically on phonation. X: She had no hoarseness of voice. XI: The sternocleidomastoids and trapezii functioned normally. XII: The tongue was in the midline without any fasciculations or atrophy. MOTOR SYSTEM: The tone was normal in all four extremities. Examination of muscle mass revealed no focal wasting. Examination of power revealed G 5/5 power except for G 4+/5 power in the right iliopsoas, and G 0/5 power in the right ankle dorsiflexors and toe extensors, and G 4++/5 in the left iliopsoas. She exhibited give-way weakness in both lower extremities. SENSORY EXAMINATION: She had intact sensations to pinprick, light touch and graphesthesia. REFLEXES: 1+ and bilaterally symmetrical at the biceps, triceps, and brachioradialis, 0 on the right, and 1++ on the left at the knees, 0 at both ankles. The plantar responses were flexor bilaterally. COORDINATION: She performed well on szudgi-lh-inii testing. She was unable to perform mlbm-pf-hpos testing. STANCE: She stood up independently. GAIT: She walked independently with a paraparetic gait with a right foot drop. Impression/Recommendations Diagnostic Impression 1. Ms. Naz Carmona is a 52-year-old, right-handed, black lady, who does have a past history of lumbosacral spine disease for which she has had extensive surgery with a failed back associated with chronic low back pain and spasms involving the right lower extremity for which she has had a spinal stimulator placed. 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 2. About 3-4 days prior to admission she developed diarrhoea. This was followed by increased back pain and spasm and then sharp shooting pains and numbness in the legs. As a result of these problems she presented to the [facility] and was admitted. 3. She continues to feel better. She looks more comfortable. She still complains of leg and back spasms but they are tolerable. The pain is better controlled. She denies any new neurologic symptoms. She specifically denies any increased weakness, numbness, visual problems, or memory problems. Plans are to go home today. 4. 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 5. The CT of the LS spine done on 12/14/17 revealed extensive postsurgical change of the lumbar spine, overall similar in appearance to prior exam of 09/05/17. No evidence of acute fracture. Unchanged dystrophic calcification of the lower lumbar/upper sacral thecal sac. Spinal cord stimulator is in place. 6. The most likely etiology for the patient's low back pain and spasms, and dysesthesias in the lower extremities, would be her underlying spine pathology which has become more symptomatic. She however is improving now. Recommendations 1. Continue present management. 2. Pain Management as per her pain management physician. 3. Continue Flexeril for muscle spasms and make sure to take it every 12 hours. 4. Continue Lidoderm patch for back pain. 5. Continue Elavil 25 mg q HS. 6. The patient should be mobilized with the help of physical and occupational therapy. 7. Follow up in office in 6-8 weeks. Chelly Antoine M.D., M.S.P.Maddy. CHELLY ANTOINE Dec 17, 2017 13:30
[2017-12-17] MEDS ORDERED: Dyna-Hex 2% Top Sol 2oz TOPIC SCH (20:00)
--- NOTE | 2017-12-19 12:54 | Discharge Summary ---
Discharge Summary Discharge Summary _ DATE OF ADMISSION: 12/11/2017 DATE OF DISCHARGE: 12/17/2017 REASON FOR ADMISSION: 52 years old female with past medical history of lumbosacral spine surgery with residual low back pain, chronic cauda equina syndrome, hypertension, opioid dependency, presented with worsening low back pain. Patient reported increased numbness in her legs along with burning sensation. Upon evaluation laboratory workup revealed no leukocytosis, stable hemoglobin and hematocrit initially. Stable renal parameters and electrolytes. Vital signs revealed elevated blood pressure 177/112, no fever. Patient admitted with diagnoses of worsening chronic back pain with muscle spasm, hypertension. CONSULTANTS: neurologist Dr. Angeles GI specialist psychiatrist Dr. Crews pain specialist Dr. Singh [facility]: Patient admitted. Pain specialist and neurologist were consulted. Pain management was provided as per pain specialist recommendations with multiply regimen of analgesics along with muscle relaxant. . Neurologist closely followed. According to neurologist , etiology of intractable low back pain and muscle spasm along with dysesthesia of the lower extremities was her spine pathology which became more symptomatic. CT scan on L-spine done revealed extensive postsurgical changes of the lumbar spine , overall similar in appearance to prior exam 09/05/2017. No evidence of acute fracture. Unchanged dystrophic calcification of the lower lumbar/upper sacral thecal sac. Spinal cord stimulation implant in place Neurologist recommended to continue pain management as per pain specialist recommendations . Elavil to be continued at nighttime. Patient was working with physical and occupational therapists. Fall precautions maintained. Psychiatrist seen and evaluated patient , and diagnosed patient with major depressive disorder without psychotic features and possible generalized anxiety disorder. Psychiatric medication regimen was optimized. Cognitive behavioral therapy was provided. GI specialist seen the patient for anemia . Patient initially with stable hemoglobin and hematocrit, but later hemoglobin and hematocrit noted to trend down. Stool for occult blood was negative. Anemia workup was consistent with anemia of chronic disease. Hemoglobin and hematocrit were closely monitored with goal to keep hemoglobin above 7. Prior to discharge hemoglobin 10.9 hematocrit 33.7. DVT [id number] provided. BP was closely monitored and managed with current antihypertensive regimen. Blood pressure stabilized as pain was under control. Bowel regimen instituted. GI specialist recommended outpatient EGD. Patient symptomatically improved, pain controlled with current analgesic regimen. Patient was stable for discharge home with home health services to follow . FINAL DIAGNOSES: Failed back surgery syndrome (FBSS ) Chronic pain syndrome Lumbar DDD Lumbar spondylosis Lumbar herniated disc Lumbar radiculopathy Opioid dependency Anemia Hypertension Major depressive disorder Anxiety, possible generalized anxiety disorder DISCHARGE MEDICATIONS: See Medication Reconciliation list. DISCHARGE INSTRUCTIONS: Patient was discharged home with home health services. Patient to follow-up with her primary care provider. Patient to follow-up with neurologist in 6-8 weeks I have been assigned to dictate discharge summary for this account. I was not involved in the patient's management. Ness Junior NP Dec 19, 2017 12:54
== END 2017-12-17 13:25 | disposition home health service (06) | DRG 552 ==
LOC: EMR 13:03 → 4E 14:51 → EDBEDREQ 15:08
DX: M51.16 Intervertebral disc disorders with radiculopathy, lumbar region (principal); G83.4 Cauda equina syndrome; F11.20 Opioid dependence, uncomplicated; F33.9 Major depressive disorder, recurrent, unspecified; R19.7 Diarrhea, unspecified; I10 Essential (primary) hypertension; Z98.1 Arthrodesis status; Z88.6 Allergy status to analgesic agent; M47.26 Other spondylosis with radiculopathy, lumbar region; F41.1 Generalized anxiety disorder; D63.8 Anemia in other chronic diseases classified elsewhere; Z88.8 Allergy status to other drugs, medicaments and biological substances; Z86.718 Personal history of other venous thrombosis and embolism; Z91.81 History of falling; E88.09 Other disorders of plasma-protein metabolism, not elsewhere classified; M62.838 Other muscle spasm
CPT/HCPCS: 36415; 72131; 80048; 80053; 82270; 82607; 82746; 83540; 83550; 84443; 85025; 97803

== ENCOUNTER 2018-01-13 11:34 | Inpatient (IN) | payer MEDICARE, MEDICAID ==
[~2018-01-13] VITALS: Ht 152.4 cm; Wt 81.2 kg
[~2018-01-13 11:34] MED LIST changes: +LIDODERM700 M1 TOPIC
[2018-01-13 11:54] VITALS: BP 174/111
[2018-01-13] MEDS ORDERED: LABETALOL IV SCH (12:45)
[2018-01-13] MEDS ORDERED: Labetalol 5mg/ml 20ml vial IV ONE (12:45)
[2018-01-13] MEDS ORDERED: D5W IV SCH (12:45)
--- NOTE | 2018-01-13 12:59 | Emergency Room Report ---
History of Present Illness General Chief Complaint: Hypertension Source: Medical Record Present Illness HPI This patient is here with hypertension. It has been difficult to manage since ~ December 25. Pt. took usual meds today including Losartan, Amlodopine, Metoprolol. Denies cp, headache. PMH: cauda equina syndrome, w/c Hospitalized here three weeks ago, d/c dx: Failed back surgery syndrome (FBSS ) Chronic pain syndrome Lumbar DDD Lumbar spondylosis Lumbar herniated disc Lumbar radiculopathy Opioid dependency Anemia Hypertension: 177/112 Major depressive disorder Anxiety, possible generalized anxiety disorder Allergies: Coded Allergies: IRON (Verified Allergy, Unknown, Rash, 08/09/17) had nausea, vomiting and rashes METHADONE (Verified Allergy, Unknown, 06/04/17) MORPHINE (Verified Allergy, Unknown, 01/13/18) PREGABALIN (Verified Allergy, Unknown, 06/04/17) Nursing Documentation-PMH Past Medical History: No History, Except For Hx Cardiac Problems: No Hx Hypertension: Yes Hx Cancer: No Hx Gastrointestinal Problems: Yes Hx Neurological Problems: No Hx Spinal Cord Injury: Yes Hx Numbness: Yes Hx Neurologic Surgery: Yes - 2010 Spinal surgery Review of Systems Constitutional: Reports: no symptoms Eye: Reports: no symptoms ENT: Reports: no symptoms Respiratory: Reports: no symptoms Cardiovascular: Reports: no symptoms Gastrointestinal: Reports: no symptoms Genitourinary: Reports: no symptoms Musculoskeletal: Reports: no symptoms Skin: Reports: no symptoms Psychiatric: Reports: see HPI, anxiety, depressed feelings Neurological: Reports: see HPI Endocrine: Reports: no symptoms Hematologic/Lymphatic: Reports: no symptoms Allergic: Reports: no symptoms All Other Systems: negative except mentioned in HPI Physical Exam Vital Signs Date Time Temp Pulse Resp B/P (MAP) Pulse Ox O2 Delivery O2 Flow Rate FiO2 01/13/18 11:47 98.7 82 14 185/94 98 Room Air 98.8 Sp02 EP Interpretation: reviewed, normal General Appearance: normal inspection, well appearing, no apparent distress, alert, GCS 15, non-toxic Head: normocephalic, atraumatic Eyes: bilateral eye normal inspection, bilateral eye PERRL, bilateral eye EOMI ENT: normal ENT inspection, hearing grossly normal, normal pharynx, no angioedema, normal voice, moist mucus membranes Neck: normal inspection, full range of motion, supple, no meningismus, no bony tend Respiratory: normal inspection, lungs clear, normal breath sounds, no rhonchi, no respiratory distress, no retraction, no accessory muscle use, no wheezing Cardiovascular #1: normal inspection, regular rate, rhythm, no edema Gastrointestinal: normal inspection, normal bowel sounds, non tender, soft, no mass, non-distended Neurologic: normal inspection, alert, oriented x3, responsive Psychiatric: normal inspection, judgement/insight normal, memory normal Suicide Risk Assessment: Suicidal Ideation: No Had intent to initiate attempt: No Pt's plan for suicide attempt: No Has means to complete attempt: No Skin: normal inspection, normal color, no rash, warm/dry Medical Decision Making Diagnostic Impression: Primary Impression: Accelerated hypertension ER Course IV Labetalol and drip ordered pt. c/o her muscle spasm pain, she has chronic pain syndrome and has already been seen by pain management and that will be managed by her PMD [place] Last Vital Signs Date Time Temp Pulse Resp B/P (MAP) Pulse Ox O2 Delivery O2 Flow Rate FiO2 01/13/18 11:54 98.8 81 22 174/111 100 Room Air 98.8 Disposition: ADMITTED INPATIENT Condition: Serious David Fall M.D. Jan 13, 2018 12:59
[2018-01-13 13:24] LABS: APPEARANCE,URINE CLEAR; BILIRUBIN, URINE NEGATIVE (NEGATIVE); COLOR,URINE PALE YELLOW; GLUCOSE, URINE (UA) NEGATIVE (NEGATIVE); KETONES,URINE NEGATIVE (NEGATIVE); LEUKOCYTE ESTERASE ,URINE 3+ (NEGATIVE); NITRITE,URINE POSITIVE (NEGATIVE); PH,URINE 6 (4.5-8.0); PROTEIN,URINE NEGATIVE (NEGATIVE); UROBILINOGEN,URINE NORMAL MG/DL (0.0-1.0)
--- NOTE | 2018-01-13 13:30 | Diagnostic Imaging Report ---
Indication: Chest pain Comparison: 06/04/2017 A single view chest radiograph was obtained. Findings: Cardiomediastinal appearance is within normal limits for age. Chest port again noted. Spinal stimulation wires again noted. Pulmonary vascularity is appropriate. The diaphragmatic contour is smooth and costophrenic angles are sharp. No pleural effusions are identified. The bones are osteopenic. Impression: No acute findings
[2018-01-13 13:34] LABS: BASOPHILS % (AUTO) 1.1 % (0.0-2.0); EOSINOPHILS % (AUTO) 0.9 % (0.0-3.0); HEMATOCRIT 37.6 % (37.0-47.0); HEMOGLOBIN 12.2 G/DL (12.0-16.0); LYMPHOCYTES % (AUTO) 27.7 % (20.0-45.0); MEAN CORPUSCULAR VOLUME 89 FL (80-99); MONOCYTES % (AUTO) 6.4 % (1.0-10.0); NEUTROPHILS % (AUTO) 63.9 % (45.0-75.0); PLATELET COUNT 307 K/UL (150-450); RED BLOOD COUNT 4.21 M/UL (4.20-5.40); RED CELL DISTRIBUTION WIDTH 12.3 % (11.6-14.8); WHITE BLOOD COUNT 5.9 K/UL (4.8-10.8)
[2018-01-13 13:39] VITALS: BP 192/105
[2018-01-13] MEDS ORDERED: cefTRIAXone 1 GM in NS 55 ML IVPB ONE (13:45)
[2018-01-13] MEDS ORDERED: LORazepam Inj 2mg/ml 1ml IV ONE (13:45)
[2018-01-13 13:54] LABS: ANION GAP 7 mmol/L (5-15); BLOOD UREA NITROGEN 16 mg/dL (7-18); CALCIUM 9.2 MG/DL (8.5-10.1); CARBON DIOXIDE 27 MMOL/L (21-32); CHLORIDE 105 MMOL/L (98-107); CREATININE 0.6 MG/DL (0.55-1.30); POTASSIUM 3.9 MMOL/L (3.5-5.1); SODIUM 139 MMOL/L (136-145)
[2018-01-13] MEDS ORDERED: Labetalol 5mg/ml 20ml vial IV PRN (14:00)
[2018-01-13] MEDS ORDERED: Enalaprilat 2.5mg/2ml Inj IV PRN (14:00)
[2018-01-13] MEDS ORDERED: LORazepam 1mg tab ORAL PRN (14:00)
[2018-01-13] MEDS ORDERED: Miralax 17gm pkt ORAL PRN (14:00)
[2018-01-13] MEDS ORDERED: dilTIAZem HCl 25mg/5ml Inj IV PRN (14:00)
[2018-01-13] MEDS ORDERED: Albuterol/Ipratropium 3ml neb HHN PRN (14:00)
[2018-01-13] MEDS ORDERED: Nitroglycerin Subl 0.4mg tab SL PRN (14:00)
[2018-01-13 14:03] LABS: ALANINE AMINOTRANSFERASE 14 U/L (12-78); ALBUMIN 3.4 G/DL (3.4-5.0); ALBUMIN/GLOBULIN RATIO 0.8 (1.0-2.7); ALKALINE PHOSPHATASE 176 U/L (46-116); ASPARTATE AMINO TRANSFERASE 17 U/L (15-37); BILIRUBIN,TOTAL 0.3 MG/DL (0.2-1.0)
--- NOTE | 2018-01-13 14:31 | Consultation ---
History of Present Illness General Date patient seen: Jan 13, 2018 Chief Complaint: Hypertension Present Illness HPI 52 year old female with hx of refractory HTN, multiple back surgeries, with spine stimulant implant, presented to ER b/o uncontrolled BP. Her back pain is out of control as well. She is admitted to telemetry for hypertensive emergency. Allergies: Coded Allergies: IRON (Verified Allergy, Unknown, Rash, 08/09/17) had nausea, vomiting and rashes METHADONE (Verified Allergy, Unknown, 06/04/17) MORPHINE (Verified Allergy, Unknown, 01/13/18) PREGABALIN (Verified Allergy, Unknown, 06/04/17) Medication History Scheduled Amitriptyline Hcl* (Amitriptyline Hcl*), 25 MG ORAL BEDTIME, (Reported) Amlodipine Besylate (Norvasc), 10 MG ORAL DAILY, (Reported) Baclofen* (Lioresal*), 20 MG ORAL THREE TIMES A DAY, (Reported) Carisoprodol* (Soma*), 300 MG PO TID, (Reported) Clonazepam* (Klonopin*), 1 MG ORAL Q6H, (Reported) Diphenhydramine HCl (Benadryl), 25 MG PO Q6HR, (Reported) Duloxetine Hcl* (Cymbalta*), 30 MG ORAL DAILY, (Reported) Folic Acid* (Folic Acid*), 2 MG ORAL DAILY, (Reported) Gabapentin* (Gabapentin*), 300 MG ORAL THREE TIMES A DAY, (Reported) Lidocaine (Lidoderm), 1 PATCH TOPIC DAILY, (Reported) Lorazepam* (Lorazepam*), 1 MG ORAL THREE TIMES A DAY, (Reported) Omeprazole (Omeprazole), 20 MG ORAL DAILY, (Reported) Scheduled PRN Acetaminophen* (Acetaminophen 325MG Tablet*), 650 MG ORAL Q4H PRN for Mild Pain/ Temp > 100.5, (Reported) Patient History Healthcare decision maker Resuscitation status Advanced Directive on File Past Medical/Surgical History Past Medical/Surgical History: (1) Chronic pain syndrome (2) HTN (hypertension) (3) Opioid dependence Review of Systems All Other Systems: negative except mentioned in HPI Physical Exam General Appearance: WD/WN, alert Lines, tubes and drains: peripheral, central line HEENT: normocephalic, atraumatic, PERRL Neck: normal alignment, limited range of motion Respiratory/Chest: lungs clear Breasts: no masses Cardiovascular/Chest: normal peripheral pulses Abdomen: normal bowel sounds Genitourinary/Rectal: normal rectal exam Last 24 Hour Vital Signs Date Time Temp Pulse Resp B/P (MAP) Pulse Ox O2 Delivery O2 Flow Rate FiO2 01/13/18 13:39 98.8 85 22 192/105 100 Room Air 98.8 01/13/18 13:08 81 174/111 01/13/18 11:54 98.8 81 22 174/111 100 Room Air 98.8 01/13/18 11:54 81 22 Room Air 01/13/18 11:47 98.7 82 14 185/94 98 Room Air 98.8 Laboratory Tests Test 01/13/18 13:05 White Blood Count 5.9 K/UL (4.8-10.8) Red Blood Count 4.21 M/UL (4.20-5.40) Hemoglobin 12.2 G/DL (12.0-16.0) Hematocrit 37.6 % (37.0-47.0) Mean Corpuscular Volume 89 FL (80-99) Mean Corpuscular Hemoglobin 29.0 PG (27.0-31.0) Mean Corpuscular Hemoglobin Concent 32.5 G/DL (32.0-36.0) Red Cell Distribution Width 12.3 % (11.6-14.8) Platelet Count 307 K/UL (150-450) Mean Platelet Volume 5.6 FL (6.5-10.1) L Neutrophils (%) (Auto) 63.9 % (45.0-75.0) Lymphocytes (%) (Auto) 27.7 % (20.0-45.0) Monocytes (%) (Auto) 6.4 % (1.0-10.0) Eosinophils (%) (Auto) 0.9 % (0.0-3.0) Basophils (%) (Auto) 1.1 % (0.0-2.0) Urine Color Pale yellow Urine Appearance Clear Urine pH 6 (4.5-8.0) Urine Specific [place] 1.015 (1.005-1.035) Urine Protein Negative (NEGATIVE) Urine Glucose (UA) Negative (NEGATIVE) Urine Ketones Negative (NEGATIVE) Urine Blood 3+ (NEGATIVE) H Urine Nitrite Positive (NEGATIVE) H Urine Bilirubin Negative (NEGATIVE) Urine Urobilinogen Normal MG/DL (0.0-1.0) Urine Leukocyte Esterase 3+ (NEGATIVE) H Urine RBC 2-4 /HPF (0 - 2) H Urine WBC 10-15 /HPF (0 - 2) H Urine Squamous Epithelial Cells Few /LPF (NONE/OCC) Urine Bacteria Moderate /HPF (NONE) H Sodium Level 139 MMOL/L (136-145) Potassium Level 3.9 MMOL/L (3.5-5.1) Chloride Level 105 MMOL/L (98-107) Carbon Dioxide Level 27 MMOL/L (21-32) Anion Gap 7 mmol/L (5-15) Blood Urea Nitrogen 16 mg/dL (7-18) Creatinine 0.6 MG/DL (0.55-1.30) Estimat Glomerular Filtration Rate > 60 mL/min (>60) Glucose Level 112 MG/DL (74-106) H Calcium Level 9.2 MG/DL (8.5-10.1) Total Bilirubin 0.3 MG/DL (0.2-1.0) Aspartate Amino Transf (AST/SGOT) 17 U/L (15-37) Alanine Aminotransferase (ALT/SGPT) 14 U/L (12-78) Alkaline Phosphatase 176 U/L (46-116) H Troponin I 0.000 ng/mL (0.000-0.056) Pro-B-Type Natriuretic Peptide 25 pg/mL (0-125) Total Protein 7.7 G/DL (6.4-8.2) Albumin 3.4 G/DL (3.4-5.0) Globulin 4.3 g/dL Albumin/Globulin Ratio 0.8 (1.0-2.7) L Height (Feet): 5 Weight (Pounds): 150 Medications Current Medications Medications (Trade) Dose Ordered Sig/Danni Route PRN Reason Start Time Stop Time Status Last Admin Dose Admin Acetaminophen (Tylenol) 650 mg Q4H PRN ORAL FEVER (temp>100.5F) 01/13/18 14:00 02/12/18 13:59 Albuterol/ Ipratropium (Albuterol/ Ipratropium) 3 ml Q4H PRN HHN Shortness of Breath 01/13/18 14:00 01/18/18 13:59 Amlodipine Besylate (Norvasc) 10 mg DAILY ORAL 01/14/18 09:00 02/13/18 08:59 Carisoprodol (Soma) 300 mg Q8H PRN ORAL MUSCLE SPASMS 01/13/18 18:00 02/12/18 17:59 Diltiazem HCl (Cardizem) 10 mg EVERY HOUR PRN IV heart rate more than 120, 01/13/18 14:00 02/12/18 13:59 UNV Duloxetine HCl (Cymbalta) 30 mg DAILY ORAL 01/14/18 09:00 02/13/18 08:59 Enalaprilat (Vasotec) 2.5 mg Q6H PRN IV sbp more than 160mmHg 01/13/18 14:00 02/12/18 13:59 Gabapentin (Neurontin) 300 mg THREE TIMES A DAY ORAL 01/13/18 18:00 02/12/18 17:59 UNV Heparin Sodium (Porcine) (Heparin 5000 units/ml) 5,000 units EVERY 12 HOURS SUBQ 01/13/18 21:00 02/12/18 20:59 Labetalol HCl (Normodyne) 20 mg EVERY HOUR PRN IV sbp more than 160 01/13/18 14:00 02/12/18 13:59 UNV Lorazepam (Ativan) 1 mg Q8H PRN ORAL ANXIETY 01/13/18 14:00 01/20/18 13:59 Nitroglycerin (Ntg) 0.4 mg Q5M PRN SL Prn Chest Pain 01/13/18 14:00 02/12/18 13:59 Ondansetron HCl (Zofran) 4 mg Q6H PRN IVP Nausea & Vomiting 01/13/18 14:00 02/12/18 13:59 Pantoprazole (Protonix) 40 mg DAILY ORAL 01/14/18 09:00 02/13/18 08:59 Polyethylene Glycol (Miralax) 17 gm DAILYPRN PRN ORAL Constipation 01/13/18 14:00 02/12/18 13:59 Temazepam (Restoril) 15 mg HSPRN PRN ORAL Insomnia 01/13/18 21:00 01/20/18 20:59 Assessment/Plan Problem List: (1) Accelerated hypertension ICD Codes: I10 - Essential (primary) hypertension SNOMED: 27245010 (2) Chronic pain syndrome ICD Codes: G89.4 - Chronic pain syndrome SNOMED: 375524251 (3) Anxiety ICD Codes: F41.9 - Anxiety disorder, unspecified SNOMED: 40468512 (4) Opioid dependence ICD Codes: F11.20 - Opioid dependence, uncomplicated SNOMED: 40137580 Assessment/Plan telemetry monitoring titrate cardiac meds pain specialist to see pt/ot symptomatic treatment dvt prophylaxis. Adam Tom MD Jan 13, 2018 14:31
[2018-01-13 14:33] VITALS: BP 158/97
[2018-01-13 15:57] VITALS: BP 153/92
[2018-01-13] MEDS: MS Contin 15mg tab ORAL SCH (16:00)
--- NOTE | 2018-01-13 16:06 | General Progress Note ---
Assessment/Plan Assessment/Plan (1) Lumbar DDD (2) Lumbar spondylosis (4) Lumbar Herniated disc (5) Lumbar Radiculopathy (6) FBSS (7) Arachnoiditis Patient to be continued on Neurontin 300mg TID. We will start Dilaudid 2mg IV Q4H PRN and Morphine ER 15mg PO 1 tab Q8H ATC. D/w Dr. Singh and he concurred. Subjective Date patient seen: Jan 13, 2018 Time patient seen: 02:00 - pm Allergies: Coded Allergies: IRON (Verified Allergy, Unknown, Rash, 08/09/17) had nausea, vomiting and rashes METHADONE (Verified Allergy, Unknown, 06/04/17) MORPHINE (Verified Allergy, Unknown, 01/13/18) PREGABALIN (Verified Allergy, Unknown, 06/04/17) Subjective REVIEW OF SYSTEMS: Denies rash, fever, chills, sweating, dizziness, drowsiness, blurred vision, sore throat, or change in her weight. No shortness of breath or chest pain. No nausea, vomiting, diarrhea, or blood in stool or urine. No bowel or bladder incontinence. No dysuria. She is complaining of low back pain. SUBJECTIVE: Patient is a known patient from prior admission and has returned with c/o severe back spasms and hypertension. Home medications were not adequately reducing her pain and was sent to ER due to HTN. We were consulted so patient has adequate pain control while here in the hospital. Objective Last 24 Hour Vital Signs Date Time Temp Pulse Resp B/P (MAP) Pulse Ox O2 Delivery O2 Flow Rate FiO2 01/13/18 15:57 92 20 153/92 99 Room Air 01/13/18 15:43 98.8 01/13/18 15:02 98.8 01/13/18 14:48 158/97 01/13/18 14:33 89 22 158/97 99 Room Air 01/13/18 13:39 98.8 85 22 192/105 100 Room Air 98.8 01/13/18 13:08 81 174/111 01/13/18 11:54 98.8 81 22 174/111 100 Room Air 98.8 01/13/18 11:54 81 22 Room Air 01/13/18 11:47 98.7 82 14 185/94 98 Room Air 98.8 Laboratory Tests 01/13/18 13:05: White Blood Count 5.9, Red Blood Count 4.21, Hemoglobin 12.2, Hematocrit 37.6, Mean Corpuscular Volume 89, Mean Corpuscular Hemoglobin 29.0, Mean Corpuscular Hemoglobin Concent 32.5, Red Cell Distribution Width 12.3, Platelet Count 307, Mean Platelet Volume 5.6L, Neutrophils (%) (Auto) 63.9, Lymphocytes (%) (Auto) 27.7, Monocytes (%) (Auto) 6.4, Eosinophils (%) (Auto) 0.9, Basophils (%) (Auto ) 1.1, Urine Color Pale yellow, Urine Appearance Clear, Urine pH 6, Urine Specific [place] 1.015, Urine Protein Negative, Urine Glucose (UA) Negative, Urine Ketones Negative, Urine Blood 3+H, Urine Nitrite PositiveH, Urine Bilirubin Negative, Urine Urobilinogen Normal, Urine Leukocyte Esterase 3+H, Urine RBC 2-4H, Urine WBC 10-15H, Urine Squamous Epithelial Cells Few, Urine Bacteria ModerateH, Sodium Level 139, Potassium Level 3.9, Chloride Level 105, Carbon Dioxide Level 27, Anion Gap 7, Blood Urea Nitrogen 16, Creatinine 0.6, Estimat Glomerular Filtration Rate > 60, Glucose Level 112H, Calcium Level 9.2, Total Bilirubin 0.3, Aspartate Amino Transf (AST/SGOT) 17, Alanine Aminotransferase (ALT/SGPT) 14, Alkaline Phosphatase 176H, Troponin I 0.000, Pro -B-Type Natriuretic Peptide 25, Total Protein 7.7, Albumin 3.4, Globulin 4.3, Albumin/Globulin Ratio 0.8L Height (Feet): 5 Weight (Pounds): 150 Objective GENERAL: Alert, awake, and oriented x3. HEENT: PERRLA on the left. On the right, prosthetic eye noted. NECK: Range of motion is full in all directions. LUNGS: Clear. HEART: Regular. ABDOMEN: Tenderness to palpation. EXTREMITIES: No cyanosis. No clubbing. No edema. NEURO: 4/5 in all muscles b/l Tal Gunderson Jan 13, 2018 16:06
[2018-01-13] MEDS: LORazepam Inj 2mg/ml 1ml IV PRN ×2 (17:33→23:06)
[2018-01-13 17:42] VITALS: BP 156/104
[2018-01-13 20:00] VITALS: BP 184/82
[2018-01-13] MEDS: Dyna-Hex 2% Top Sol 2oz TOPIC SCH (20:19)
[2018-01-13] MEDS: Heparin 5000 units/ml inj SUBQ SCH (20:24)
[2018-01-14] VITALS: BP 90/60
[2018-01-14] MEDS: MS Contin 15mg tab ORAL SCH ×3 (00:29→16:01)
[2018-01-14 04:00] VITALS: BP 160/113
[2018-01-14] MEDS: LORazepam Inj 2mg/ml 1ml IV PRN ×4 (06:15→21:09)
[2018-01-14 08:00] VITALS: BP 155/99
[2018-01-14] MEDS: DULoxetine 30mg cap ORAL SCH (09:02)
[2018-01-14] MEDS: Heparin 5000 units/ml inj SUBQ SCH ×2 (09:23→21:11)
--- NOTE | 2018-01-14 10:02 | General Progress Note ---
Assessment/Plan Assessment/Plan (1) Lumbar DDD (2) Lumbar spondylosis (4) Lumbar Herniated disc (5) Lumbar Radiculopathy (6) FBSS (7) Arachnoiditis Patient to be continued on Neurontin, Dilaudid and Morphine We will discontinue the Soma and start Valium 5mg PO 1 tab Q8H PRN muscle spasm. As well as to start Elavil 25mg PO 1 tab QHS. D/w Dr. Singh and he concurred. Subjective Date patient seen: Jan 14, 2018 Time patient seen: 09:00 - am Allergies: Coded Allergies: IRON (Verified Allergy, Unknown, Rash, 08/09/17) had nausea, vomiting and rashes METHADONE (Verified Allergy, Unknown, 06/04/17) MORPHINE (Verified Allergy, Unknown, 01/13/18) PREGABALIN (Verified Allergy, Unknown, 06/04/17) Subjective REVIEW OF SYSTEMS: Denies rash, fever, chills, sweating, dizziness, drowsiness, blurred vision, sore throat, or change in her weight. No shortness of breath or chest pain. No nausea, vomiting, diarrhea, or blood in stool or urine. No bowel or bladder incontinence. No dysuria. She is complaining of low back pain. SUBJECTIVE: Patient has been in bed with at bed side. She continues to c/o spasms and has no relief with the soma and Ativan. I d/w her about Valium and continuing the Morphine ER and Dilaudid for pain. Nurse was advised not to crush the Morphine ER. Objective Last 24 Hour Vital Signs Date Time Temp Pulse Resp B/P (MAP) Pulse Ox O2 Delivery O2 Flow Rate FiO2 01/14/18 09:03 99.9 01/14/18 09:03 97 160/113 01/14/18 09:02 99.9 01/14/18 04:00 99.9 101 18 160/113 (129) 98 99.9 01/14/18 04:00 97 01/14/18 00:00 98.4 18 90/60 (70) 71 98.4 01/14/18 00:00 87 01/13/18 21:00 Room Air 01/13/18 20:20 107 184/82 01/13/18 20:00 98.6 18 184/82 (116) 98 98.6 01/13/18 20:00 83 01/13/18 19:51 92 18 Room Air 21 01/13/18 18:00 99 01/13/18 17:42 98.8 156/104 (121) 98 98.8 01/13/18 16:24 Room Air 01/13/18 16:18 98.8 92 20 153/92 99 Room Air 98.8 01/13/18 15:57 92 20 153/92 99 Room Air 01/13/18 15:43 98.8 01/13/18 15:02 98.8 01/13/18 14:48 158/97 01/13/18 14:33 89 22 158/97 99 Room Air 01/13/18 13:39 98.8 85 22 192/105 100 Room Air 98.8 01/13/18 13:08 81 174/111 01/13/18 11:54 98.8 81 22 174/111 100 Room Air 98.8 01/13/18 11:54 81 22 Room Air 01/13/18 11:47 98.7 82 14 185/94 98 Room Air 98.8 Intake and Output 01/13/18 01/14/18 19:00 07:00 Intake Total 360 ml 400 ml Balance 360 ml 400 ml Intake Oral 360 ml 400 ml # Voids 2 # Bowel Movements 1 Laboratory Tests 01/13/18 13:05: White Blood Count 5.9, Red Blood Count 4.21, Hemoglobin 12.2, Hematocrit 37.6, Mean Corpuscular Volume 89, Mean Corpuscular Hemoglobin 29.0, Mean Corpuscular Hemoglobin Concent 32.5, Red Cell Distribution Width 12.3, Platelet Count 307, Mean Platelet Volume 5.6L, Neutrophils (%) (Auto) 63.9, Lymphocytes (%) (Auto) 27.7, Monocytes (%) (Auto) 6.4, Eosinophils (%) (Auto) 0.9, Basophils (%) (Auto ) 1.1, Urine Color Pale yellow, Urine Appearance Clear, Urine pH 6, Urine Specific [place] 1.015, Urine Protein Negative, Urine Glucose (UA) Negative, Urine Ketones Negative, Urine Blood 3+H, Urine Nitrite PositiveH, Urine Bilirubin Negative, Urine Urobilinogen Normal, Urine Leukocyte Esterase 3+H, Urine RBC 2-4H, Urine WBC 10-15H, Urine Squamous Epithelial Cells Few, Urine Bacteria ModerateH, Sodium Level 139, Potassium Level 3.9, Chloride Level 105, Carbon Dioxide Level 27, Anion Gap 7, Blood Urea Nitrogen 16, Creatinine 0.6, Estimat Glomerular Filtration Rate > 60, Glucose Level 112H, Calcium Level 9.2, Total Bilirubin 0.3, Aspartate Amino Transf (AST/SGOT) 17, Alanine Aminotransferase (ALT/SGPT) 14, Alkaline Phosphatase 176H, Troponin I 0.000, Pro -B-Type Natriuretic Peptide 25, Total Protein 7.7, Albumin 3.4, Globulin 4.3, Albumin/Globulin Ratio 0.8L Height (Feet): 5 Height (Inches): 0.00 Weight (Pounds): 150 Objective GENERAL: Alert, awake, and oriented x3. HEENT: PERRLA on the left. On the right, prosthetic eye noted. NECK: Range of motion is full in all directions. LUNGS: Clear. HEART: Regular. ABDOMEN: Tenderness to palpation. EXTREMITIES: No cyanosis. No clubbing. No edema. NEURO: 4/5 in all muscles b/l Tal Gunderson Jan 14, 2018 10:02
[2018-01-14 10:32] LABS: BASOPHILS % (AUTO) 1.3 % (0.0-2.0); EOSINOPHILS % (AUTO) 2.2 % (0.0-3.0); HEMATOCRIT 39.2 % (37.0-47.0); HEMOGLOBIN 12.6 G/DL (12.0-16.0); LYMPHOCYTES % (AUTO) 24.6 % (20.0-45.0); MEAN CORPUSCULAR VOLUME 89 FL (80-99); MONOCYTES % (AUTO) 6.9 % (1.0-10.0); PLATELET COUNT 289 K/UL (150-450); RED CELL DISTRIBUTION WIDTH 12.6 % (11.6-14.8); WHITE BLOOD COUNT 5.8 K/UL (4.8-10.8)
[2018-01-14 11:24] LABS: CHOLESTEROL 189 MG/DL (< 200); HDL CHOLESTEROL 105 MG/DL (40-60); TRIGLYCERIDES 77 MG/DL (30-150)
[2018-01-14 12:00] VITALS: BP 151/108
--- NOTE | 2018-01-14 12:18 | Pulmonology Progress Note ---
Assessment/Plan Problems: (1) Accelerated hypertension (2) Urinary tract infection (3) Opioid dependence (4) Anxiety (5) Chronic pain syndrome Assessment/Plan sbp still around 160 add lisinopril f/u urine cultures on Ceftriaxone Subjective ROS Limited/Unobtainable: No Constitutional: Reports: no symptoms HEENT: Repors: no symptoms Respiratory: Reports: no symptoms Allergies: Coded Allergies: IRON (Verified Allergy, Unknown, Rash, 08/09/17) had nausea, vomiting and rashes METHADONE (Verified Allergy, Unknown, 06/04/17) MORPHINE (Verified Allergy, Unknown, 01/13/18) PREGABALIN (Verified Allergy, Unknown, 06/04/17) Objective Last 24 Hour Vital Signs Date Time Temp Pulse Resp B/P (MAP) Pulse Ox O2 Delivery O2 Flow Rate FiO2 01/14/18 12:14 99.9 01/14/18 09:32 99.9 01/14/18 09:32 99.9 01/14/18 09:03 99.9 01/14/18 09:03 97 160/113 01/14/18 09:02 99.9 01/14/18 09:00 Room Air 01/14/18 08:00 99 01/14/18 04:00 99.9 101 18 160/113 (129) 98 99.9 01/14/18 04:00 97 01/14/18 00:00 98.4 18 90/60 (70) 71 98.4 01/14/18 00:00 87 01/13/18 21:00 Room Air 01/13/18 20:20 107 184/82 01/13/18 20:00 98.6 18 184/82 (116) 98 98.6 01/13/18 20:00 83 01/13/18 19:51 92 18 Room Air 21 01/13/18 18:00 99 01/13/18 17:42 98.8 156/104 (121) 98 98.8 01/13/18 16:24 Room Air 01/13/18 16:18 98.8 92 20 153/92 99 Room Air 98.8 01/13/18 15:57 92 20 153/92 99 Room Air 01/13/18 15:43 98.8 01/13/18 15:02 98.8 01/13/18 14:48 158/97 01/13/18 14:33 89 22 158/97 99 Room Air 01/13/18 13:39 98.8 85 22 192/105 100 Room Air 98.8 01/13/18 13:08 81 174/111 Intake and Output 01/13/18 01/14/18 19:00 07:00 Intake Total 360 ml 400 ml Balance 360 ml 400 ml Intake Oral 360 ml 400 ml # Voids 2 # Bowel Movements 1 General Appearance: WD/WN HEENT: normocephalic, atraumatic Respiratory/Chest: lungs clear, normal breath sounds Cardiovascular: normal peripheral pulses, normal rate Abdomen: normal bowel sounds Microbiology Date/Time Source Procedure Growth Status 01/13/18 13:05 Urine,Clean Catch Urine Culture - Preliminary Gram Negative Bacillus 1 Resulted Laboratory Tests 01/13/18 13:05: White Blood Count 5.9, Red Blood Count 4.21, Hemoglobin 12.2, Hematocrit 37.6, Mean Corpuscular Volume 89, Mean Corpuscular Hemoglobin 29.0, Mean Corpuscular Hemoglobin Concent 32.5, Red Cell Distribution Width 12.3, Platelet Count 307, Mean Platelet Volume 5.6L, Neutrophils (%) (Auto) 63.9, Lymphocytes (%) (Auto) 27.7, Monocytes (%) (Auto) 6.4, Eosinophils (%) (Auto) 0.9, Basophils (%) (Auto ) 1.1, Urine Color Pale yellow, Urine Appearance Clear, Urine pH 6, Urine Specific [place] 1.015, Urine Protein Negative, Urine Glucose (UA) Negative, Urine Ketones Negative, Urine Blood 3+H, Urine Nitrite PositiveH, Urine Bilirubin Negative, Urine Urobilinogen Normal, Urine Leukocyte Esterase 3+H, Urine RBC 2-4H, Urine WBC 10-15H, Urine Squamous Epithelial Cells Few, Urine Bacteria ModerateH, Sodium Level 139, Potassium Level 3.9, Chloride Level 105, Carbon Dioxide Level 27, Anion Gap 7, Blood Urea Nitrogen 16, Creatinine 0.6, Estimat Glomerular Filtration Rate > 60, Glucose Level 112H, Calcium Level 9.2, Total Bilirubin 0.3, Aspartate Amino Transf (AST/SGOT) 17, Alanine Aminotransferase (ALT/SGPT) 14, Alkaline Phosphatase 176H, Troponin I 0.000, Pro -B-Type Natriuretic Peptide 25, Total Protein 7.7, Albumin 3.4, Globulin 4.3, Albumin/Globulin Ratio 0.8L 01/14/18 09:30: White Blood Count 5.8, Red Blood Count 4.40, Hemoglobin 12.6, Hematocrit 39.2, Mean Corpuscular Volume 89, Mean Corpuscular Hemoglobin 28.6, Mean Corpuscular Hemoglobin Concent 32.1, Red Cell Distribution Width 12.6, Platelet Count 289, Mean Platelet Volume 5.4L, Neutrophils (%) (Auto) 65.0, Lymphocytes (%) (Auto) 24.6, Monocytes (%) (Auto) 6.9, Eosinophils (%) (Auto) 2.2, Basophils (%) (Auto ) 1.3, Troponin I 0.017, Prothrombin Time 10.3, Prothromb Time International Ratio 1.0, Activated Partial Thromboplast Time 27, C-Reactive Protein, Quantitative 0.6, Triglycerides Level 77, Cholesterol Level 189, LDL Cholesterol 69, HDL Cholesterol 105H, Cholesterol/HDL Ratio 1.8L, Thyroid Stimulating Hormone (TSH) 0.741 Current Medications Medications (Trade) Dose Ordered Sig/Danni Route PRN Reason Start Time Stop Time Status Last Admin Dose Admin Acetaminophen (Tylenol) 650 mg Q4H PRN ORAL FEVER (temp>100.5F) 01/13/18 14:00 02/12/18 13:59 Albuterol/ Ipratropium (Albuterol/ Ipratropium) 3 ml Q4H PRN HHN Shortness of Breath 01/13/18 14:00 01/18/18 13:59 Amitriptyline HCl (Elavil) 25 mg BEDTIME ORAL 01/14/18 21:00 02/13/18 20:59 Amlodipine Besylate (Norvasc) 10 mg DAILY ORAL 01/14/18 09:00 02/13/18 08:59 01/14/18 09:03 Baclofen (Lioresal) 10 mg THREE TIMES A DAY ORAL 01/14/18 13:00 02/13/18 12:59 Ceftriaxone Sodium 1 gm/ Dextrose 55 ml @ 110 mls/hr Q24H IVPB 01/14/18 12:15 01/21/18 12:14 UNV Chlorhexidine Gluconate (Margot-Hex 2%) 1 applic DAILY@2000 TOPIC 01/13/18 20:00 02/12/18 19:59 01/13/18 20:19 Diazepam (Valium) 5 mg EVERY 8 HOURS PRN ORAL muscle spasm 01/14/18 10:00 01/21/18 09:59 01/14/18 12:15 Diltiazem HCl (Cardizem) 10 mg EVERY HOUR PRN IV heart rate more than 120BPM 01/13/18 14:00 02/12/18 13:59 Diphenhydramine HCl (Benadryl) 50 mg Q6H PRN ORAL Itching 01/13/18 16:00 02/12/18 15:59 01/14/18 12:14 Duloxetine HCl (Cymbalta) 30 mg DAILY ORAL 01/14/18 09:00 02/13/18 08:59 01/14/18 09:02 Enalaprilat (Vasotec) 2.5 mg Q6H PRN IV sbp more than 160mmHg 01/13/18 14:00 02/12/18 13:59 Gabapentin (Neurontin) 300 mg THREE TIMES A DAY ORAL 01/13/18 15:30 02/12/18 15:29 01/14/18 12:14 Heparin Sodium (Porcine) (Heparin 5000 units/ml) 5,000 units EVERY 12 HOURS SUBQ 01/13/18 21:00 02/12/18 20:59 01/14/18 09:23 Hydromorphone HCl (Dilaudid) 2 mg Q4H PRN IVP severe pain 01/13/18 16:00 01/20/18 15:59 01/14/18 12:14 Labetalol HCl (Normodyne) 20 mg EVERY HOUR PRN IV sbp more than 160BPM 01/13/18 14:00 02/12/18 13:59 01/13/18 20:20 Lorazepam (Ativan 2mg/ml 1ml) 1 mg Q4H PRN IV For Anxiety 01/13/18 17:30 01/20/18 17:29 01/14/18 12:15 Morphine Sulfate (MS Contin) 15 mg Q8H ORAL 01/13/18 16:00 01/20/18 15:59 01/14/18 09:02 Nitroglycerin (Ntg) 0.4 mg Q5M PRN SL Prn Chest Pain 01/13/18 14:00 02/12/18 13:59 Ondansetron HCl (Zofran) 4 mg Q6H PRN IVP Nausea & Vomiting 01/13/18 14:00 02/12/18 13:59 Pantoprazole (Protonix) 40 mg DAILY ORAL 01/14/18 09:00 02/13/18 08:59 01/14/18 09:02 Polyethylene Glycol (Miralax) 17 gm DAILYPRN PRN ORAL Constipation 01/13/18 14:00 02/12/18 13:59 Temazepam (Restoril) 15 mg HSPRN PRN ORAL Insomnia 01/13/18 21:00 01/20/18 20:59 01/14/18 06:15 Adam Tom MD Jan 14, 2018 12:18
[2018-01-14] MEDS ORDERED: cefTRIAXone 1 GM in D5W 55 ML IVPB SCH (13:30)
[2018-01-14] MEDS: Lisinopril 20mg tab ORAL SCH (14:54)
--- NOTE | 2018-01-14 15:29 | Cardiology Report ---
APPROVED REPORT EKG Measurement Heart [id number] ID [id number] Normal sinus rhythm with sinus arrhythmia T wave abnormality, consider anterior ischemia Abnormal ECG
[2018-01-14 20:00] VITALS: BP 163/90
[2018-01-14] MEDS: Dyna-Hex 2% Top Sol 2oz TOPIC SCH (21:05)
--- NOTE | 2018-01-14 23:15 | History and Physical Report ---
DATE OF ADMISSION: 01/13/2018 TIME: 2 p.m. CONSULTANTS: 1. Adam Tom M.D. 2. Armani Singh M.D. 3. Ellis Angeles M.D. 4. Russell Pollard M.D. CHIEF COMPLAINT: Hypertensive urgency and severe pain in lower extremity. BRIEF HISTORY: This is a 52-year-old female who lives at home, came to my office yesterday and elevated blood pressure over the last 3 days. Her pain in the lower extremity became unbearable. She came to [facility] last night, diagnosed with above, and admitted to telemetry for further care, currently with pain medications. The patient is feeling a little bit better, slightly weak, no complaint. REVIEW OF SYSTEMS: No chest pain. Slight short of breath. No nausea or vomiting. No diarrhea. PAST MEDICAL HISTORY: Hypertension, lower extremity pain, cauda equina syndrome, and chronic pain. PAST SURGICAL HISTORY: Hysterectomy, right eye, and appendectomy. ALLERGIES: Methadone, morphine, and pregabalin. SOCIAL HISTORY: Positive smoke. Occasional alcohol. No intravenous drug abuse. FAMILY HISTORY: Noncontributory. PHYSICAL EXAMINATION: GENERAL: Slightly anxious in bed, oriented x3, no acute distress. VITAL SIGNS: Temperature is 99 degrees, pulse 94, respirations 18, and blood pressure 160/113. CARDIOVASCULAR: No murmur. LUNGS: Clear and distant. ABDOMEN: Bowel sounds positive. Nontender. Nondistended. EXTREMITIES: No cyanosis, clubbing, or edema. NEUROLOGIC: The patient moves all extremities, slightly weak, lower extremity especially. LABORATORY DATA: CBC is normal. BMP shows glucose 112, alkaline phosphatase 176. Troponin 0.00, otherwise normal. INR is 1.0 and PTT 27. Urinalysis show 3+ leukocyte esterase. MEDICATIONS: Include amitriptyline, ceftriaxone, , Prinivil, Dilantin, Norvasc, Cymbalta, Protonix, and Restoril. ASSESSMENT: 1. Hypertensive urgency. 2. Urinary tract infection. 3. Lower extremity pain. 4. Cauda equina. 5. Chronic pain. PLAN: 1. Continue premeds. 2. Pain control. 3. OT, PT. 4. Dietary followup. 5. Antibiotics per Infectious Disease. 6. Blood pressure control. Ernesto Magallon D.O. DR: CARRILLO JOB#: [id number] CC:
[2018-01-15] VITALS: BP 158/97
[2018-01-15] MEDS: MS Contin 15mg tab ORAL SCH ×4 (00:47→16:21)
[2018-01-15 04:00] VITALS: BP 136/111
[2018-01-15 06:06] LABS: BASOPHILS % (AUTO) 1.1 % (0.0-2.0); HEMATOCRIT 39.1 % (37.0-47.0); HEMOGLOBIN 13.1 G/DL (12.0-16.0); LYMPHOCYTES % (AUTO) 28.2 % (20.0-45.0); MEAN CORPUSCULAR VOLUME 90 FL (80-99); MONOCYTES % (AUTO) 5.1 % (1.0-10.0); NEUTROPHILS % (AUTO) 62.6 % (45.0-75.0); PLATELET COUNT 270 K/UL (150-450); RED BLOOD COUNT 4.34 M/UL (4.20-5.40); RED CELL DISTRIBUTION WIDTH 12.3 % (11.6-14.8); WHITE BLOOD COUNT 7.4 K/UL (4.8-10.8)
[2018-01-15 06:19] LABS: ANION GAP 9 mmol/L (5-15); BLOOD UREA NITROGEN 15 mg/dL (7-18); CALCIUM 9.5 MG/DL (8.5-10.1); CARBON DIOXIDE 27 MMOL/L (21-32); CHLORIDE 105 MMOL/L (98-107); CREATININE 0.8 MG/DL (0.55-1.30); POTASSIUM 3.6 MMOL/L (3.5-5.1); SODIUM 141 MMOL/L (136-145)
[2018-01-15 08:00] VITALS: BP 137/82
[2018-01-15] MEDS: Lisinopril 20mg tab ORAL SCH (08:21)
[2018-01-15] MEDS: DULoxetine 30mg cap ORAL SCH (08:22)
[2018-01-15] MEDS: Heparin 5000 units/ml inj SUBQ SCH ×2 (08:23→20:21)
--- NOTE | 2018-01-15 08:28 | General Progress Note ---
Assessment/Plan Problem List: (1) Anxiety ICD Codes: F41.9 - Anxiety disorder, unspecified SNOMED: 94907726 (2) Urinary tract infection ICD Codes: N39.0 - Urinary tract infection, site not specified SNOMED: 32791275 (3) Intractable back pain ICD Codes: M54.9 - Dorsalgia, unspecified SNOMED: 973991694 (4) Chronic pain syndrome ICD Codes: G89.4 - Chronic pain syndrome SNOMED: 818233950 (5) Muscle spasm ICD Codes: M62.838 - Other muscle spasm SNOMED: 11244259, 08549995 (6) Accelerated hypertension ICD Codes: I10 - Essential (primary) hypertension SNOMED: 48773706 Status: unchanged Assessment/Plan ot pt diet pain bp control cbc bmp am Subjective Constitutional: Reports: weakness Allergies: Coded Allergies: IRON (Verified Allergy, Unknown, Rash, 08/09/17) had nausea, vomiting and rashes METHADONE (Verified Allergy, Unknown, 06/04/17) MORPHINE (Verified Allergy, Unknown, 01/13/18) PREGABALIN (Verified Allergy, Unknown, 06/04/17) All Systems: reviewed and negative except above Subjective sleepy calm Objective Last 24 Hour Vital Signs Date Time Temp Pulse Resp B/P (MAP) Pulse Ox O2 Delivery O2 Flow Rate FiO2 01/15/18 08:22 97.2 01/15/18 08:21 137/82 01/15/18 08:21 103 137/82 01/15/18 08:00 97.2 103 20 137/82 (100) 97 97.2 01/15/18 07:52 98.2 01/15/18 07:31 89 18 Room Air 21 01/15/18 04:00 98.2 100 20 136/111 (119) 97 98.2 01/15/18 04:00 98 01/15/18 00:00 98.4 100 16 158/97 (117) 96 98.4 01/15/18 00:00 94 01/14/18 21:00 Room Air 01/14/18 20:48 92 18 Room Air 21 01/14/18 20:00 97 01/14/18 20:00 98.1 94 18 163/90 (114) 96 98.1 01/14/18 16:31 99.9 9/7/18 16:31 99.9 01/14/18 16:02 99.9 01/14/18 16:01 99.9 01/14/18 16:00 97 01/14/18 14:54 160/113 01/14/18 12:14 99.9 01/14/18 12:00 98.2 88 18 151/108 (122) 96 98.2 01/14/18 12:00 95 01/14/18 09:21 94 18 Room Air 21 01/14/18 09:03 99.9 01/14/18 09:03 97 160/113 01/14/18 09:02 99.9 01/14/18 09:00 Room Air Intake and Output 01/14/18 01/15/18 19:00 07:00 Intake Total 930 ml 500 ml Output Total 1100 ml Balance -170 ml 500 ml Intake Oral 930 ml 500 ml Output Urine Total 1100 ml # Voids 1 # Bowel Movements 2 Laboratory Tests 01/14/18 09:30: White Blood Count 5.8, Red Blood Count 4.40, Hemoglobin 12.6, Hematocrit 39.2, Mean Corpuscular Volume 89, Mean Corpuscular Hemoglobin 28.6, Mean Corpuscular Hemoglobin Concent 32.1, Red Cell Distribution Width 12.6, Platelet Count 289, Mean Platelet Volume 5.4L, Neutrophils (%) (Auto) 65.0, Lymphocytes (%) (Auto) 24.6, Monocytes (%) (Auto) 6.9, Eosinophils (%) (Auto) 2.2, Basophils (%) (Auto ) 1.3, Prothrombin Time 10.3, Prothromb Time International Ratio 1.0, Activated Partial Thromboplast Time 27, Troponin I 0.017, C-Reactive Protein, Quantitative 0.6, Triglycerides Level 77, Cholesterol Level 189, LDL Cholesterol 69, HDL Cholesterol 105H, Cholesterol/HDL Ratio 1.8L, Thyroid Stimulating Hormone (TSH) 0.741 01/15/18 05:16: White Blood Count 7.4, Red Blood Count 4.34, Hemoglobin 13.1, Hematocrit 39.1, Mean Corpuscular Volume 90, Mean Corpuscular Hemoglobin 30.3, Mean Corpuscular Hemoglobin Concent 33.6, Red Cell Distribution Width 12.3, Platelet Count 270, Mean Platelet Volume 5.5L, Neutrophils (%) (Auto) 62.6, Lymphocytes (%) (Auto) 28.2, Monocytes (%) (Auto) 5.1, Eosinophils (%) (Auto) 3.0, Basophils (%) (Auto ) 1.1, Sodium Level 141, Potassium Level 3.6, Chloride Level 105, Carbon Dioxide Level 27, Anion Gap 9, Blood Urea Nitrogen 15, Creatinine 0.8, Estimat Glomerular Filtration Rate > 60, Glucose Level 142H, Calcium Level 9.5 Height (Feet): 5 Height (Inches): 0.00 Weight (Pounds): 150 General Appearance: lethargic EENT: normal ENT inspection Neck: normal alignment Cardiovascular: normal peripheral pulses, normal rate, regular rhythm Respiratory/Chest: chest wall non-tender, lungs clear, normal breath sounds Abdomen: normal bowel sounds, non tender, soft Extremities: normal inspection Edema: no edema noted Arm (L), no edema noted Arm (R), no edema noted Leg (L), no edema noted Leg (R), no edema noted Pedal (L), no edema noted Pedal (R), no edema noted Generalized Neurologic: motor weakness Skin: normal pigmentation, warm/dry Ernesto Magallon DO Jan 15, 2018 08:28
--- NOTE | 2018-01-15 08:48 | Pulmonology Progress Note ---
Assessment/Plan Assessment/Plan ASSESSMENT Hypertensive urgency-resolved Urinary tract infection with E coli Opioid dependency Chronic pain syndrome Lumbar DDD Lumbar spondylosis Lumbar herniated disc Lumbar radiculopathy Failed back surgery syndrome/FBSS Anxiety Blindness PLAN OF CARE telemetry normal sinus rhythm, no acute ischemic changes troponin 2 negative patient ruled out for acute DC blood pressure management to keep blood pressure under control supplemental oxygen , pulmonary toilet prn antibiotic, urine culture + E coli lipid panel stable ECHO with preserved ejection fraction 55-60% and right ventricular systolic pressure of 33 , evidence of moderate aortic regurgitation pain management as per pain specialist recs DVT/ GI prophylaxis PT eval and Rx fall precautions transfer to [facility] floor dc plan as per PMD case discussed and evaluated by supervising physician Subjective Allergies: Coded Allergies: IRON (Verified Allergy, Unknown, Rash, 08/09/17) had nausea, vomiting and rashes METHADONE (Verified Allergy, Unknown, 06/04/17) MORPHINE (Verified Allergy, Unknown, 01/13/18) PREGABALIN (Verified Allergy, Unknown, 06/04/17) Subjective denies CP SOB, generalized pain, chronic Objective Last 24 Hour Vital Signs Date Time Temp Pulse Resp B/P (MAP) Pulse Ox O2 Delivery O2 Flow Rate FiO2 01/15/18 08:32 97.2 01/15/18 08:32 97.2 01/15/18 08:22 97.2 01/15/18 08:21 137/82 01/15/18 08:21 103 137/82 01/15/18 08:00 97.2 103 20 137/82 (100) 97 97.2 01/15/18 07:52 98.2 01/15/18 07:31 89 18 Room Air 21 01/15/18 04:00 98.2 100 20 136/111 (119) 97 98.2 01/15/18 04:00 98 01/15/18 00:00 98.4 100 16 158/97 (117) 96 98.4 01/15/18 00:00 94 01/14/18 21:00 Room Air 01/14/18 20:48 92 18 Room Air 21 01/14/18 20:00 97 01/14/18 20:00 98.1 94 18 163/90 (114) 96 98.1 01/14/18 16:02 99.9 01/14/18 16:01 99.9 01/14/18 16:00 97 01/14/18 14:54 160/113 01/14/18 12:14 99.9 01/14/18 12:00 98.2 88 18 151/108 (122) 96 98.2 01/14/18 12:00 95 01/14/18 09:21 94 18 Room Air 21 01/14/18 09:03 99.9 01/14/18 09:03 97 160/113 01/14/18 09:02 99.9 01/14/18 09:00 Room Air Intake and Output 01/14/18 01/15/18 19:00 07:00 Intake Total 930 ml 500 ml Output Total 1100 ml Balance -170 ml 500 ml Intake Oral 930 ml 500 ml Output Urine Total 1100 ml # Voids 1 # Bowel Movements 2 General Appearance: no acute distress HEENT: normocephalic, anicteric, other - R eye prosthesis, Left eye tunneled vision only Respiratory/Chest: chest wall non-tender, no respiratory distress Cardiovascular: normal peripheral pulses, regular rhythm, tachycardia - ST 100- 106 Abdomen: normal bowel sounds, soft, non tender, no organomegaly Extremities: no edema Neurologic/Psychiatric: abnormal gait - ambulates with walker , alert, oriented x 3, responsive Musculoskeletal: normal muscle bulk Microbiology Date/Time Source Procedure Growth Status 01/13/18 13:05 Urine,Clean Catch Urine Culture - Final Escherichia Coli Complete Laboratory Tests 01/14/18 09:30: White Blood Count 5.8, Red Blood Count 4.40, Hemoglobin 12.6, Hematocrit 39.2, Mean Corpuscular Volume 89, Mean Corpuscular Hemoglobin 28.6, Mean Corpuscular Hemoglobin Concent 32.1, Red Cell Distribution Width 12.6, Platelet Count 289, Mean Platelet Volume 5.4L, Neutrophils (%) (Auto) 65.0, Lymphocytes (%) (Auto) 24.6, Monocytes (%) (Auto) 6.9, Eosinophils (%) (Auto) 2.2, Basophils (%) (Auto ) 1.3, Prothrombin Time 10.3, Prothromb Time International Ratio 1.0, Activated Partial Thromboplast Time 27, Troponin I 0.017, C-Reactive Protein, Quantitative 0.6, Triglycerides Level 77, Cholesterol Level 189, LDL Cholesterol 69, HDL Cholesterol 105H, Cholesterol/HDL Ratio 1.8L, Thyroid Stimulating Hormone (TSH) 0.741 01/15/18 05:16: White Blood Count 7.4, Red Blood Count 4.34, Hemoglobin 13.1, Hematocrit 39.1, Mean Corpuscular Volume 90, Mean Corpuscular Hemoglobin 30.3, Mean Corpuscular Hemoglobin Concent 33.6, Red Cell Distribution Width 12.3, Platelet Count 270, Mean Platelet Volume 5.5L, Neutrophils (%) (Auto) 62.6, Lymphocytes (%) (Auto) 28.2, Monocytes (%) (Auto) 5.1, Eosinophils (%) (Auto) 3.0, Basophils (%) (Auto ) 1.1, Sodium Level 141, Potassium Level 3.6, Chloride Level 105, Carbon Dioxide Level 27, Anion Gap 9, Blood Urea Nitrogen 15, Creatinine 0.8, Estimat Glomerular Filtration Rate > 60, Glucose Level 142H, Calcium Level 9.5 Current Medications Medications (Trade) Dose Ordered Sig/Danni Route PRN Reason Start Time Stop Time Status Last Admin Dose Admin Acetaminophen (Tylenol) 650 mg Q4H PRN ORAL FEVER (temp>100.5F) 01/13/18 14:00 02/12/18 13:59 Albuterol/ Ipratropium (Albuterol/ Ipratropium) 3 ml Q4H PRN HHN Shortness of Breath 01/13/18 14:00 01/18/18 13:59 Amitriptyline HCl (Elavil) 25 mg BEDTIME ORAL 01/14/18 21:00 02/13/18 20:59 Amlodipine Besylate (Norvasc) 10 mg DAILY ORAL 01/14/18 09:00 02/13/18 08:59 01/15/18 08:21 Baclofen (Lioresal) 10 mg THREE TIMES A DAY ORAL 01/14/18 13:00 02/13/18 12:59 Ceftriaxone Sodium 1 gm/ Dextrose 55 ml @ 110 mls/hr Q24H IVPB 01/14/18 13:30 01/21/18 13:29 01/14/18 14:54 Chlorhexidine Gluconate (Margot-Hex 2%) 1 applic DAILY@2000 TOPIC 01/13/18 20:00 02/12/18 19:59 01/14/18 21:05 Diazepam (Valium) 5 mg EVERY 8 HOURS PRN ORAL muscle spasm 01/14/18 10:00 01/21/18 09:59 01/14/18 12:15 Diltiazem HCl (Cardizem) 10 mg EVERY HOUR PRN IV heart rate more than 120BPM 01/13/18 14:00 02/12/18 13:59 Diphenhydramine HCl (Benadryl) 50 mg Q6H PRN ORAL Itching 01/13/18 16:00 02/12/18 15:59 01/15/18 07:29 Duloxetine HCl (Cymbalta) 30 mg DAILY ORAL 01/14/18 09:00 02/13/18 08:59 01/15/18 08:22 Enalaprilat (Vasotec) 2.5 mg Q6H PRN IV sbp more than 160mmHg 01/13/18 14:00 02/12/18 13:59 Gabapentin (Neurontin) 300 mg THREE TIMES A DAY ORAL 01/13/18 15:30 02/12/18 15:29 01/15/18 08:22 Heparin Sodium (Porcine) (Heparin 5000 units/ml) 5,000 units EVERY 12 HOURS SUBQ 01/13/18 21:00 02/12/18 20:59 01/15/18 08:23 Hydromorphone HCl (Dilaudid) 2 mg Q4H PRN IVP severe pain 01/13/18 16:00 01/20/18 15:59 01/15/18 07:52 Labetalol HCl (Normodyne) 20 mg EVERY HOUR PRN IV sbp more than 160BPM 01/13/18 14:00 02/12/18 13:59 01/13/18 20:20 Lisinopril (Prinivil) 20 mg DAILY ORAL 01/14/18 12:45 02/13/18 12:44 01/15/18 08:21 Lorazepam (Ativan 2mg/ml 1ml) 1 mg Q4H PRN IV For Anxiety 01/13/18 17:30 01/20/18 17:29 01/14/18 21:09 Morphine Sulfate (MS Contin) 15 mg Q8H ORAL 01/13/18 16:00 01/20/18 15:59 01/15/18 08:22 Nitroglycerin (Ntg) 0.4 mg Q5M PRN SL Prn Chest Pain 01/13/18 14:00 02/12/18 13:59 Ondansetron HCl (Zofran) 4 mg Q6H PRN IVP Nausea & Vomiting 01/13/18 14:00 02/12/18 13:59 Pantoprazole (Protonix) 40 mg DAILY ORAL 01/14/18 09:00 02/13/18 08:59 01/15/18 08:22 Polyethylene Glycol (Miralax) 17 gm DAILYPRN PRN ORAL Constipation 01/13/18 14:00 02/12/18 13:59 Temazepam (Restoril) 15 mg HSPRN PRN ORAL Insomnia 01/13/18 21:00 01/20/18 20:59 01/14/18 06:15 Ness Junior [employer] Jan 15, 2018 08:48
[2018-01-15] MEDS: LORazepam Inj 2mg/ml 1ml IV PRN ×3 (11:49→22:19)
[2018-01-15 12:04] VITALS: BP 143/94
--- NOTE | 2018-01-15 12:25 | Consultation ---
History of Present Illness General Date patient seen: Jan 15, 2018 Chief Complaint: Hypertension Present Illness HPI 52 y/o F with hx of HTN, MDD/Anxiety, Chronic pain syndrome w/ opoid dependency , Lumbar DDD/spondylosis/herniated disc w/ failed marija surgery syndrome, cauda equina syndrome, hysterectomy, appendectomy presents to ED on 01/13 with hypertensive urgency and severe pain in lower extremity. Her HTN has been difficult to manage since ~ Dec 25. Denied CP, LANDERS, n/v/d upon admission. Slight SOB upon admission. ID consulted for concern for UTI afebrile no leukocytosis Allergies: Coded Allergies: IRON (Verified Allergy, Unknown, Rash, 08/09/17) had nausea, vomiting and rashes METHADONE (Verified Allergy, Unknown, 06/04/17) MORPHINE (Verified Allergy, Unknown, 01/13/18) PREGABALIN (Verified Allergy, Unknown, 06/04/17) Medication History Scheduled Amitriptyline Hcl* (Amitriptyline Hcl*), 25 MG ORAL BEDTIME, (Reported) Amlodipine Besylate (Norvasc), 10 MG ORAL DAILY, (Reported) Baclofen* (Lioresal*), 20 MG ORAL THREE TIMES A DAY, (Reported) Carisoprodol* (Soma*), 300 MG PO TID, (Reported) Clonazepam* (Klonopin*), 1 MG ORAL Q6H, (Reported) Diphenhydramine HCl (Benadryl), 25 MG PO Q6HR, (Reported) Duloxetine Hcl* (Cymbalta*), 30 MG ORAL DAILY, (Reported) Folic Acid* (Folic Acid*), 2 MG ORAL DAILY, (Reported) Gabapentin* (Gabapentin*), 300 MG ORAL THREE TIMES A DAY, (Reported) Lidocaine (Lidoderm), 1 PATCH TOPIC DAILY, (Reported) Lorazepam* (Lorazepam*), 1 MG ORAL THREE TIMES A DAY, (Reported) Omeprazole (Omeprazole), 20 MG ORAL DAILY, (Reported) Scheduled PRN Acetaminophen* (Acetaminophen 325MG Tablet*), 650 MG ORAL Q4H PRN for Mild Pain/ Temp > 100.5, (Reported) Patient History Healthcare decision maker Resuscitation status Full Code Advanced Directive on File No Patient History Narrative Pmhx: as above Shx:Positive smoke. Occasional alcohol. No intravenous drug abuse. Fhx: non contributory Review of Systems All Other Systems: negative except mentioned in HPI Physical Exam Physical Exam Narrative :GENERAL: Slightly anxious in bed, oriented x3, no acute distress. CARDIOVASCULAR: No murmur. LUNGS: Clear and distant. ABDOMEN: Bowel sounds positive. Nontender. Nondistended. EXTREMITIES: No cyanosis, clubbing, or edema. NEUROLOGIC: The patient moves all extremities, slightly weak, lower extremity especially. Last 24 Hour Vital Signs Date Time Temp Pulse Resp B/P (MAP) Pulse Ox O2 Delivery O2 Flow Rate FiO2 01/15/18 12:04 99.1 98 18 143/94 (110) 95 99.1 01/15/18 11:49 97.2 01/15/18 10:36 Room Air 01/15/18 08:32 97.2 01/15/18 08:32 97.2 01/15/18 08:22 97.2 01/15/18 08:21 137/82 01/15/18 08:21 103 137/82 01/15/18 08:00 97.2 103 20 137/82 (100) 97 97.2 01/15/18 08:00 101 01/15/18 07:52 98.2 01/15/18 07:31 89 18 Room Air 21 01/15/18 04:00 98.2 100 20 136/111 (119) 97 98.2 01/15/18 04:00 98 01/15/18 00:00 98.4 100 16 158/97 (117) 96 98.4 01/15/18 00:00 94 01/14/18 21:00 Room Air 01/14/18 20:48 92 18 Room Air 21 01/14/18 20:00 97 01/14/18 20:00 98.1 94 18 163/90 (114) 96 98.1 01/14/18 16:02 99.9 01/14/18 16:01 99.9 01/14/18 16:00 97 01/14/18 14:54 160/113 Intake and Output 01/14/18 01/15/18 19:00 07:00 Intake Total 930 ml 500 ml Output Total 1100 ml Balance -170 ml 500 ml Intake Oral 930 ml 500 ml Output Urine Total 1100 ml # Voids 1 # Bowel Movements 2 Laboratory Tests Test 01/15/18 05:16 White Blood Count 7.4 K/UL (4.8-10.8) Red Blood Count 4.34 M/UL (4.20-5.40) Hemoglobin 13.1 G/DL (12.0-16.0) Hematocrit 39.1 % (37.0-47.0) Mean Corpuscular Volume 90 FL (80-99) Mean Corpuscular Hemoglobin 30.3 PG (27.0-31.0) Mean Corpuscular Hemoglobin Concent 33.6 G/DL (32.0-36.0) Red Cell Distribution Width 12.3 % (11.6-14.8) Platelet Count 270 K/UL (150-450) Mean Platelet Volume 5.5 FL (6.5-10.1) L Neutrophils (%) (Auto) 62.6 % (45.0-75.0) Lymphocytes (%) (Auto) 28.2 % (20.0-45.0) Monocytes (%) (Auto) 5.1 % (1.0-10.0) Eosinophils (%) (Auto) 3.0 % (0.0-3.0) Basophils (%) (Auto) 1.1 % (0.0-2.0) Sodium Level 141 MMOL/L (136-145) Potassium Level 3.6 MMOL/L (3.5-5.1) Chloride Level 105 MMOL/L (98-107) Carbon Dioxide Level 27 MMOL/L (21-32) Anion Gap 9 mmol/L (5-15) Blood Urea Nitrogen 15 mg/dL (7-18) Creatinine 0.8 MG/DL (0.55-1.30) Estimat Glomerular Filtration Rate > 60 mL/min (>60) Glucose Level 142 MG/DL (74-106) H Calcium Level 9.5 MG/DL (8.5-10.1) Height (Feet): 5 Height (Inches): 0.00 Weight (Pounds): 150 Medications Current Medications Medications (Trade) Dose Ordered Sig/Danni Route PRN Reason Start Time Stop Time Status Last Admin Dose Admin Acetaminophen (Tylenol) 650 mg Q4H PRN ORAL FEVER (temp>100.5F) 01/13/18 14:00 02/12/18 13:59 Albuterol/ Ipratropium (Albuterol/ Ipratropium) 3 ml Q4H PRN HHN Shortness of Breath 01/13/18 14:00 01/18/18 13:59 Amitriptyline HCl (Elavil) 25 mg BEDTIME ORAL 01/14/18 21:00 02/13/18 20:59 Amlodipine Besylate (Norvasc) 10 mg DAILY ORAL 01/14/18 09:00 02/13/18 08:59 01/15/18 08:21 Baclofen (Lioresal) 10 mg THREE TIMES A DAY ORAL 01/14/18 13:00 02/13/18 12:59 Ceftriaxone Sodium 1 gm/ Dextrose 55 ml @ 110 mls/hr Q24H IVPB 01/14/18 13:30 01/21/18 13:29 01/14/18 14:54 Chlorhexidine Gluconate (Margot-Hex 2%) 1 applic DAILY@2000 TOPIC 01/13/18 20:00 02/12/18 19:59 01/14/18 21:05 Diazepam (Valium) 5 mg EVERY 8 HOURS PRN ORAL muscle spasm 01/14/18 10:00 01/21/18 09:59 01/14/18 12:15 Diltiazem HCl (Cardizem) 10 mg EVERY HOUR PRN IV heart rate more than 120BPM 01/13/18 14:00 02/12/18 13:59 Diphenhydramine HCl (Benadryl) 50 mg Q6H PRN ORAL Itching 01/13/18 16:00 02/12/18 15:59 01/15/18 07:29 Duloxetine HCl (Cymbalta) 30 mg DAILY ORAL 01/14/18 09:00 02/13/18 08:59 01/15/18 08:22 Enalaprilat (Vasotec) 2.5 mg Q6H PRN IV sbp more than 160mmHg 01/13/18 14:00 02/12/18 13:59 Gabapentin (Neurontin) 300 mg THREE TIMES A DAY ORAL 01/13/18 15:30 02/12/18 15:29 01/15/18 08:22 Heparin Sodium (Porcine) (Heparin 5000 units/ml) 5,000 units EVERY 12 HOURS SUBQ 01/13/18 21:00 02/12/18 20:59 01/15/18 08:23 Hydromorphone HCl (Dilaudid) 2 mg Q4H PRN IVP severe pain 01/13/18 16:00 01/20/18 15:59 01/15/18 11:49 Labetalol HCl (Normodyne) 20 mg EVERY HOUR PRN IV sbp more than 160BPM 01/13/18 14:00 02/12/18 13:59 01/13/18 20:20 Lisinopril (Prinivil) 20 mg DAILY ORAL 01/14/18 12:45 02/13/18 12:44 01/15/18 08:21 Lorazepam (Ativan 2mg/ml 1ml) 1 mg Q4H PRN IV For Anxiety 01/13/18 17:30 01/20/18 17:29 01/15/18 11:49 Morphine Sulfate (MS Contin) 15 mg Q8H ORAL 01/13/18 16:00 01/20/18 15:59 01/15/18 08:22 Nitroglycerin (Ntg) 0.4 mg Q5M PRN SL Prn Chest Pain 01/13/18 14:00 02/12/18 13:59 Ondansetron HCl (Zofran) 4 mg Q6H PRN IVP Nausea & Vomiting 01/13/18 14:00 02/12/18 13:59 Pantoprazole (Protonix) 40 mg DAILY ORAL 01/14/18 09:00 02/13/18 08:59 01/15/18 08:22 Polyethylene Glycol (Miralax) 17 gm DAILYPRN PRN ORAL Constipation 01/13/18 14:00 02/12/18 13:59 Temazepam (Restoril) 15 mg HSPRN PRN ORAL Insomnia 01/13/18 21:00 01/20/18 20:59 01/14/18 06:15 Assessment/Plan Assessment/Plan Abx: Ceftriaxone 01/13- Assessment: Pyuria/bacteriuria, probable UTI (+foul smelling urine, patient refers bc of her cauda equina syndrome, sensation in the area is impaired) -u/a wbc 10-15, nit +, leuk +3; ucx >100k E.coli (R amp, otherwise S) Afebrile No leukocytosis Hypertensive urgency Acute on chronic pain syndrome (acute LE pain) HTN MDD/Anxiety Chronic pain syndrome w/ opoid dependency Lumbar DDD/spondylosis/herniated disc w/ failed marija surgery syndrome cauda equina syndrome hysterectomy appendectomy Plan: -Switch Ceftriaxone #3/5 to PO Keflex for probable UTI -f/u cx -Monitor CBC/CMP, temperatures -pain management Thank you for this consultation. Will continue to follow along with you. Discussed with Madeline Bejarano M.D. Jan 15, 2018 12:25
[2018-01-15] MEDS ORDERED: LORazepam Inj 2mg/ml 1ml IV SCH (13:50)
[2018-01-15 16:00] VITALS: BP 149/86
[2018-01-15 20:00] VITALS: BP 146/89
[2018-01-15] MEDS: Dyna-Hex 2% Top Sol 2oz TOPIC SCH (20:19)
[2018-01-15] MEDS ORDERED: Cephalexin 500mg cap ORAL SCH (21:00)
[2018-01-15] MEDS ORDERED: Nitroglycerin Subl 0.4mg tab SL PRN (22:45)
[2018-01-15] MEDS ORDERED: Labetalol 5mg/ml 20ml vial IV PRN (23:00)
[2018-01-15] MEDS ORDERED: dilTIAZem HCl 25mg/5ml Inj IV PRN (23:00)
[2018-01-16] VITALS: BP 153/60
[2018-01-16] MEDS: MS Contin 15mg tab ORAL SCH ×4 (00:07→23:34)
[2018-01-16] MEDS ORDERED: LORazepam Inj 2mg/ml 1ml IV PRN (01:30)
[2018-01-16] MEDS ORDERED: Albuterol/Ipratropium 3ml neb HHN PRN (02:00)
[2018-01-16] MEDS ORDERED: Enalaprilat 2.5mg/2ml Inj IV PRN (02:00)
[2018-01-16 04:00] VITALS: BP 144/76
[2018-01-16 05:08] LABS: BASOPHILS % (AUTO) 1.1 % (0.0-2.0); EOSINOPHILS % (AUTO) 2.8 % (0.0-3.0); HEMATOCRIT 34.4 % (37.0-47.0); HEMOGLOBIN 11.2 G/DL (12.0-16.0); LYMPHOCYTES % (AUTO) 28.5 % (20.0-45.0); MEAN CORPUSCULAR VOLUME 90 FL (80-99); MONOCYTES % (AUTO) 7.5 % (1.0-10.0); NEUTROPHILS % (AUTO) 60.1 % (45.0-75.0); PLATELET COUNT 263 K/UL (150-450); RED BLOOD COUNT 3.83 M/UL (4.20-5.40); RED CELL DISTRIBUTION WIDTH 12.5 % (11.6-14.8); WHITE BLOOD COUNT 7.2 K/UL (4.8-10.8)
[2018-01-16 05:38] LABS: ANION GAP 4 mmol/L (5-15); BLOOD UREA NITROGEN 16 mg/dL (7-18); CALCIUM 8.9 MG/DL (8.5-10.1); CARBON DIOXIDE 30 MMOL/L (21-32); CHLORIDE 106 MMOL/L (98-107); CREATININE 0.7 MG/DL (0.55-1.30); POTASSIUM 3.9 MMOL/L (3.5-5.1); SODIUM 140 MMOL/L (136-145)
--- NOTE | 2018-01-16 07:57 | Pulmonology Progress Note ---
Assessment/Plan Assessment/Plan ASSESSMENT Hypertensive urgency-resolved Urinary tract infection with E coli Opioid dependency Chronic pain syndrome Lumbar DDD Lumbar spondylosis Lumbar herniated disc Lumbar radiculopathy Failed back surgery syndrome/FBSS Anxiety Blindness PLAN OF CARE MS floor troponin 2 negative patient ruled out for acute VT blood pressure management to keep blood pressure under control - supplemental oxygen , pulmonary toilet prn antibiotic, urine culture + E coli lipid panel stable ECHO with preserved ejection fraction 55-60% and right ventricular systolic pressure of 33 , evidence of moderate aortic regurgitation pain management as per pain specialist recs DVT/ GI prophylaxis PT eval and Rx fall precautions dc plan as per PMD case discussed and evaluated by supervising physician Subjective Allergies: Coded Allergies: IRON (Verified Allergy, Unknown, Rash, 08/09/17) had nausea, vomiting and rashes METHADONE (Verified Allergy, Unknown, 06/04/17) MORPHINE (Verified Allergy, Unknown, 01/13/18) PREGABALIN (Verified Allergy, Unknown, 06/04/17) Subjective denies CP SOB, generalized pain, chronic with spasm Objective Last 24 Hour Vital Signs Date Time Temp Pulse Resp B/P (MAP) Pulse Ox O2 Delivery O2 Flow Rate FiO2 01/16/18 07:42 92 18 Room Air 21 01/16/18 04:00 97.6 66 18 144/76 (98) 97 97.6 01/16/18 00:00 98.1 95 18 153/60 (91) 100 98.1 01/15/18 21:00 Room Air 01/15/18 20:00 98.8 99 22 146/89 (108) 98 98.8 01/15/18 20:00 85 01/15/18 19:30 90 18 Room Air 21 01/15/18 16:56 99.1 01/15/18 16:56 37.3 01/15/18 16:21 99.1 01/15/18 16:05 99.1 01/15/18 16:00 81 01/15/18 16:00 97.7 86 18 149/86 (107) 97 97.7 01/15/18 12:04 99.1 98 18 143/94 (110) 95 99.1 01/15/18 12:00 88 01/15/18 11:49 97.2 01/15/18 10:36 Room Air 01/15/18 08:22 97.2 01/15/18 08:21 137/82 01/15/18 08:21 103 137/82 01/15/18 08:00 97.2 103 20 137/82 (100) 97 97.2 01/15/18 08:00 101 Intake and Output 01/15/18 01/16/18 19:00 07:00 Intake Total 940 ml 120 ml Balance 940 ml 120 ml Intake Oral 940 ml 120 ml # Voids 4 Objective General Appearance: no acute distress HEENT: normocephalic, anicteric, R eye prosthesis, Left eye tunneled vision only Respiratory/Chest: chest wall non-tender, no respiratory distress Cardiovascular: normal peripheral pulses, regular rhythm, Abdomen: normal bowel sounds, soft, non tender, no organomegaly Extremities: no edema Neurologic/Psychiatric: abnormal gait - ambulates with walker , alert, oriented x 3, responsive Musculoskeletal: normal muscle bulk Microbiology Date/Time Source Procedure Growth Status 01/13/18 13:05 Urine,Clean Catch Urine Culture - Final Escherichia Coli Complete Laboratory Tests 01/15/18 16:35: Troponin I 0.000 01/16/18 05:00: White Blood Count 7.2, Red Blood Count 3.83L, Hemoglobin 11.2L, Hematocrit 34.4L , Mean Corpuscular Volume 90, Mean Corpuscular Hemoglobin 29.2, Mean Corpuscular Hemoglobin Concent 32.4, Red Cell Distribution Width 12.5, Platelet Count 263, Mean Platelet Volume 5.5L, Neutrophils (%) (Auto) 60.1, Lymphocytes ( %) (Auto) 28.5, Monocytes (%) (Auto) 7.5, Eosinophils (%) (Auto) 2.8, Basophils (%) (Auto) 1.1, Sodium Level 140, Potassium Level 3.9, Chloride Level 106, Carbon Dioxide Level 30, Anion Gap 4L, Blood Urea Nitrogen 16, Creatinine 0.7, Estimat Glomerular Filtration Rate > 60, Glucose Level 104, Calcium Level 8.9 Current Medications Medications (Trade) Dose Ordered Sig/Danni Route PRN Reason Start Time Stop Time Status Last Admin Dose Admin Acetaminophen (Tylenol) 650 mg Q4H PRN ORAL FEVER (temp>100.5F) 01/16/18 02:00 02/12/18 13:59 Albuterol/ Ipratropium (Albuterol/ Ipratropium) 3 ml Q4H PRN HHN Shortness of Breath 01/16/18 02:00 01/18/18 13:59 Amitriptyline HCl (Elavil) 25 mg BEDTIME ORAL 01/16/18 21:00 02/13/18 20:59 Amlodipine Besylate (Norvasc) 10 mg DAILY ORAL 01/16/18 09:00 02/13/18 08:59 Cephalexin (Keflex) 500 mg Q12HR ORAL 01/16/18 09:00 01/22/18 20:59 Chlorhexidine Gluconate (Margot-Hex 2%) 1 applic DAILY@2000 TOPIC 01/16/18 20:00 02/12/18 19:59 Diazepam (Valium) 5 mg EVERY 8 HOURS PRN ORAL muscle spasm 01/16/18 06:00 01/21/18 09:59 Diphenhydramine HCl (Benadryl) 50 mg Q6H PRN ORAL Itching 01/16/18 04:00 02/12/18 15:59 Duloxetine HCl (Cymbalta) 30 mg DAILY ORAL 01/16/18 09:00 02/13/18 08:59 Gabapentin (Neurontin) 300 mg THREE TIMES A DAY ORAL 01/16/18 09:00 02/12/18 15:29 Heparin Sodium (Porcine) (Heparin 5000 units/ml) 5,000 units EVERY 12 HOURS SUBQ 01/16/18 09:00 02/12/18 20:59 Hydromorphone HCl (Dilaudid) 2 mg Q4H PRN IVP severe pain 01/16/18 00:00 01/20/18 15:59 01/16/18 07:01 Lisinopril (Prinivil) 20 mg DAILY ORAL 01/16/18 09:00 02/13/18 12:44 Lorazepam (Ativan 2mg/ml 1ml) 1 mg Q4H PRN IV For Anxiety 01/16/18 01:30 01/20/18 17:29 Morphine Sulfate (MS Contin) 15 mg Q8H ORAL 01/16/18 00:00 01/20/18 15:59 01/16/18 00:07 Nitroglycerin (Ntg) 0.4 mg Q5M PRN SL Prn Chest Pain 01/15/18 22:45 02/12/18 13:59 Ondansetron HCl (Zofran) 4 mg Q6H PRN IVP Nausea & Vomiting 01/16/18 02:00 02/12/18 13:59 Pantoprazole (Protonix) 40 mg DAILY ORAL 01/16/18 09:00 02/13/18 08:59 Polyethylene Glycol (Miralax) 17 gm DAILYPRN PRN ORAL Constipation 01/16/18 14:00 02/12/18 13:59 Temazepam (Restoril) 15 mg HSPRN PRN ORAL Insomnia 01/16/18 21:00 01/20/18 20:59 Ness Junior [employer] L[employer]TER Jan 16, 2018 07:57
--- NOTE | 2018-01-16 08:19 | General Progress Note ---
Assessment/Plan Problem List: (1) Anxiety ICD Codes: F41.9 - Anxiety disorder, unspecified SNOMED: 44618232 (2) Urinary tract infection ICD Codes: N39.0 - Urinary tract infection, site not specified SNOMED: 84889633 (3) Intractable back pain ICD Codes: M54.9 - Dorsalgia, unspecified SNOMED: 065294108 (4) Chronic pain syndrome ICD Codes: G89.4 - Chronic pain syndrome SNOMED: 028202662 (5) Muscle spasm ICD Codes: M62.838 - Other muscle spasm SNOMED: 24616730, 67851570 (6) Accelerated hypertension ICD Codes: I10 - Essential (primary) hypertension SNOMED: 27592349 Status: unchanged Assessment/Plan ot pt diet pain bp control cbc bmp am Subjective Constitutional: Reports: weakness Allergies: Coded Allergies: IRON (Verified Allergy, Unknown, Rash, 08/09/17) had nausea, vomiting and rashes METHADONE (Verified Allergy, Unknown, 06/04/17) MORPHINE (Verified Allergy, Unknown, 01/13/18) PREGABALIN (Verified Allergy, Unknown, 06/04/17) All Systems: reviewed and negative except above Subjective sleepy calm Objective Last 24 Hour Vital Signs Date Time Temp Pulse Resp B/P (MAP) Pulse Ox O2 Delivery O2 Flow Rate FiO2 01/16/18 07:42 92 18 Room Air 21 01/16/18 04:00 97.6 66 18 144/76 (98) 97 97.6 01/16/18 00:00 98.1 95 18 153/60 (91) 100 98.1 01/15/18 21:00 Room Air 01/15/18 20:00 98.8 99 22 146/89 (108) 98 98.8 01/15/18 20:00 85 01/15/18 19:30 90 18 Room Air 21 01/15/18 16:56 99.1 01/15/18 16:56 37.3 01/15/18 16:21 99.1 01/15/18 16:05 99.1 01/15/18 16:00 81 01/15/18 16:00 97.7 86 18 149/86 (107) 97 97.7 01/15/18 12:04 99.1 98 18 143/94 (110) 95 99.1 01/15/18 12:00 88 01/15/18 11:49 97.2 01/15/18 10:36 Room Air 01/15/18 08:22 97.2 01/15/18 08:21 137/82 01/15/18 08:21 103 137/82 Intake and Output 01/15/18 01/16/18 19:00 07:00 Intake Total 940 ml 120 ml Balance 940 ml 120 ml Intake Oral 940 ml 120 ml # Voids 4 Laboratory Tests 01/15/18 16:35: Troponin I 0.000 01/16/18 05:00: White Blood Count 7.2, Red Blood Count 3.83L, Hemoglobin 11.2L, Hematocrit 34.4L , Mean Corpuscular Volume 90, Mean Corpuscular Hemoglobin 29.2, Mean Corpuscular Hemoglobin Concent 32.4, Red Cell Distribution Width 12.5, Platelet Count 263, Mean Platelet Volume 5.5L, Neutrophils (%) (Auto) 60.1, Lymphocytes ( %) (Auto) 28.5, Monocytes (%) (Auto) 7.5, Eosinophils (%) (Auto) 2.8, Basophils (%) (Auto) 1.1, Sodium Level 140, Potassium Level 3.9, Chloride Level 106, Carbon Dioxide Level 30, Anion Gap 4L, Blood Urea Nitrogen 16, Creatinine 0.7, Estimat Glomerular Filtration Rate > 60, Glucose Level 104, Calcium Level 8.9 Height (Feet): 5 Height (Inches): 0.00 Weight (Pounds): 150 General Appearance: lethargic EENT: normal ENT inspection Neck: normal alignment Cardiovascular: normal peripheral pulses, normal rate, regular rhythm Respiratory/Chest: chest wall non-tender, lungs clear, normal breath sounds Abdomen: normal bowel sounds, non tender, soft Extremities: normal inspection Edema: no edema noted Arm (L), no edema noted Arm (R), no edema noted Leg (L), no edema noted Leg (R), no edema noted Pedal (L), no edema noted Pedal (R), no edema noted Generalized Neurologic: responsive, motor weakness Skin: normal pigmentation, warm/dry Ernesto Magallon DO Jan 16, 2018 08:18
[2018-01-16] MEDS: DULoxetine 30mg cap ORAL SCH (08:30)
[2018-01-16] MEDS: Cephalexin 500mg cap ORAL SCH ×2 (08:32→21:12)
[2018-01-16] MEDS: Lisinopril 20mg tab ORAL SCH (08:33)
[2018-01-16] MEDS: Heparin 5000 units/ml inj SUBQ SCH ×2 (08:36→21:14)
[2018-01-16 08:49] VITALS: BP 149/95
--- NOTE | 2018-01-16 09:07 | General Progress Note ---
Assessment/Plan Assessment/Plan (1) Lumbar DDD (2) Lumbar spondylosis (4) Lumbar Herniated disc (5) Lumbar Radiculopathy (6) FBSS (7) Arachnoiditis Patient to be continued on Neurontin, Dilaudid, Valium and Morphine ER. She does not need RX for discharge. We recommend patient to be seen by Neurosurgeon. D/w Dr. Singh and he concurred. Subjective Date patient seen: Jan 16, 2018 Time patient seen: 08:15 - am Allergies: Coded Allergies: IRON (Verified Allergy, Unknown, Rash, 08/09/17) had nausea, vomiting and rashes METHADONE (Verified Allergy, Unknown, 06/04/17) MORPHINE (Verified Allergy, Unknown, 01/13/18) PREGABALIN (Verified Allergy, Unknown, 06/04/17) Subjective REVIEW OF SYSTEMS: Denies rash, fever, chills, sweating, dizziness, drowsiness, blurred vision, sore throat, or change in her weight. No shortness of breath or chest pain. No nausea, vomiting, diarrhea, or blood in stool or urine. No bowel or bladder incontinence. No dysuria. She is complaining of low back pain. SUBJECTIVE: Patient is in bed and nurse at bed side. She continues to c/o spasms in her left LE. Has been better controlled with the Valium and using the Morphine ER and Dilaudid. She says that she would like her SCS to be removed which she says was placed surgically. I explained to patient she needs to be seen by a Neurosurgeon for the surgical removal of the SCS. Objective Last 24 Hour Vital Signs Date Time Temp Pulse Resp B/P (MAP) Pulse Ox O2 Delivery O2 Flow Rate FiO2 01/16/18 08:49 98.5 103 19 149/95 (113) 99 98.5 01/16/18 08:33 149/95 01/16/18 08:33 103 149/95 01/16/18 07:42 92 18 Room Air 21 01/16/18 04:00 97.6 66 18 144/76 (98) 97 97.6 01/16/18 00:00 98.1 95 18 153/60 (91) 100 98.1 01/15/18 21:00 Room Air 01/15/18 20:00 98.8 99 22 146/89 (108) 98 98.8 9/8/18 20:00 85 01/15/18 19:30 90 18 Room Air 21 01/15/18 16:56 99.1 01/15/18 16:56 37.3 01/15/18 16:21 99.1 01/15/18 16:05 99.1 01/15/18 16:00 81 01/15/18 16:00 97.7 86 18 149/86 (107) 97 97.7 01/15/18 12:04 99.1 98 18 143/94 (110) 95 99.1 01/15/18 12:00 88 01/15/18 11:49 97.2 01/15/18 10:36 Room Air Intake and Output 01/15/18 01/16/18 19:00 07:00 Intake Total 940 ml 120 ml Balance 940 ml 120 ml Intake Oral 940 ml 120 ml # Voids 4 Laboratory Tests 01/15/18 16:35: Troponin I 0.000 01/16/18 05:00: White Blood Count 7.2, Red Blood Count 3.83L, Hemoglobin 11.2L, Hematocrit 34.4L , Mean Corpuscular Volume 90, Mean Corpuscular Hemoglobin 29.2, Mean Corpuscular Hemoglobin Concent 32.4, Red Cell Distribution Width 12.5, Platelet Count 263, Mean Platelet Volume 5.5L, Neutrophils (%) (Auto) 60.1, Lymphocytes ( %) (Auto) 28.5, Monocytes (%) (Auto) 7.5, Eosinophils (%) (Auto) 2.8, Basophils (%) (Auto) 1.1, Sodium Level 140, Potassium Level 3.9, Chloride Level 106, Carbon Dioxide Level 30, Anion Gap 4L, Blood Urea Nitrogen 16, Creatinine 0.7, Estimat Glomerular Filtration Rate > 60, Glucose Level 104, Calcium Level 8.9 Height (Feet): 5 Height (Inches): 0.00 Weight (Pounds): 150 Objective GENERAL: Alert, awake, and oriented x3. HEENT: PERRLA on the left. On the right, prosthetic eye noted. NECK: Range of motion is full in all directions. LUNGS: Clear. HEART: Regular. ABDOMEN: Tenderness to palpation. EXTREMITIES: No cyanosis. No clubbing. No edema. NEURO: 4/5 in all muscles b/l Tal Gunderson Jan 16, 2018 09:07
[2018-01-16 12:00] VITALS: BP 162/91
[2018-01-16] MEDS: LORazepam Inj 2mg/ml 1ml IV PRN (12:48)
[2018-01-16] MEDS ORDERED: Miralax 17gm pkt ORAL PRN (14:00)
[2018-01-16 16:00] VITALS: BP 135/73
[2018-01-16 20:00] VITALS: BP 130/69
[2018-01-16] MEDS: Dyna-Hex 2% Top Sol 2oz TOPIC SCH (21:13)
[2018-01-17] VITALS (7 sets, daily range): BP systolic 107–167; BP diastolic 51–105
[2018-01-17 06:29] LABS: BASOPHILS % (AUTO) 1.4 % (0.0-2.0); HEMATOCRIT 34.7 % (37.0-47.0); HEMOGLOBIN 11.3 G/DL (12.0-16.0); LYMPHOCYTES % (AUTO) 28.1 % (20.0-45.0); MEAN CORPUSCULAR VOLUME 91 FL (80-99); MONOCYTES % (AUTO) 6.3 % (1.0-10.0); NEUTROPHILS % (AUTO) 62.2 % (45.0-75.0); PLATELET COUNT 275 K/UL (150-450); RED BLOOD COUNT 3.81 M/UL (4.20-5.40); RED CELL DISTRIBUTION WIDTH 13.1 % (11.6-14.8); WHITE BLOOD COUNT 7.6 K/UL (4.8-10.8)
[2018-01-17 06:41] LABS: ANION GAP 7 mmol/L (5-15); BLOOD UREA NITROGEN 16 mg/dL (7-18); CALCIUM 8.8 MG/DL (8.5-10.1); CARBON DIOXIDE 28 MMOL/L (21-32); CHLORIDE 107 MMOL/L (98-107); CREATININE 0.8 MG/DL (0.55-1.30); POTASSIUM 3.4 MMOL/L (3.5-5.1); SODIUM 142 MMOL/L (136-145)
[2018-01-17] MEDS: Lisinopril 20mg tab ORAL SCH (08:26)
[2018-01-17] MEDS: Cephalexin 500mg cap ORAL SCH ×2 (08:26→20:40)
[2018-01-17] MEDS: DULoxetine 30mg cap ORAL SCH (08:27)
[2018-01-17] MEDS: MS Contin 15mg tab ORAL SCH ×3 (08:27→23:51)
[2018-01-17] MEDS: Heparin 5000 units/ml inj SUBQ SCH ×2 (08:33→20:42)
--- NOTE | 2018-01-17 09:28 | Pulmonology Progress Note ---
Assessment/Plan Assessment/Plan ASSESSMENT Hypertensive urgency-resolved Urinary tract infection with E coli Opioid dependency Chronic pain syndrome Lumbar DDD Lumbar spondylosis Lumbar herniated disc Lumbar radiculopathy Failed back surgery syndrome/FBSS Anxiety Blindness Hypokalemia PLAN OF CARE MS floor troponin 2 negative patient ruled out for acute AL blood pressure management to keep blood pressure under control - supplemental oxygen , pulmonary toilet prn antibiotic, urine culture + E coli lipid panel stable ECHO with preserved ejection fraction 55-60% and right ventricular systolic pressure of 33 , evidence of moderate aortic regurgitation pain management as per pain specialist recs DVT/ GI prophylaxis PT eval and Rx fall precautions replace K today dc plan as per PMD case discussed and evaluated by supervising physician Subjective Allergies: Coded Allergies: IRON (Verified Allergy, Unknown, Rash, 08/09/17) had nausea, vomiting and rashes METHADONE (Verified Allergy, Unknown, 06/04/17) MORPHINE (Verified Allergy, Unknown, 01/13/18) PREGABALIN (Verified Allergy, Unknown, 06/04/17) Subjective denies CP SOB, generalized pain, chronic with spasm Objective Last 24 Hour Vital Signs Date Time Temp Pulse Resp B/P (MAP) Pulse Ox O2 Delivery O2 Flow Rate FiO2 01/17/18 08:57 98.7 01/17/18 08:27 98.7 01/17/18 08:27 103 131/90 01/17/18 08:26 131/90 01/17/18 08:00 98.7 103 20 131/90 (104) 97 98.7 01/17/18 06:19 94 158/85 (109) 01/17/18 04:00 98.5 109 21 167/105 (125) 98 98.5 01/17/18 00:00 97.8 67 20 107/51 (69) 95 97.8 01/16/18 21:00 Room Air 01/16/18 20:00 97.6 75 20 130/69 (89) 94 97.6 01/16/18 18:30 98.7 01/16/18 17:40 98.7 01/16/18 17:10 98.7 01/16/18 16:00 98.7 56 17 135/73 (93) 95 98.7 01/16/18 12:00 98.6 106 20 162/91 (114) 96 98.6 01/16/18 11:04 98.5 Intake and Output 01/16/18 01/17/18 19:00 07:00 Intake Total 600 ml 240 ml Balance 600 ml 240 ml Intake Oral 240 ml Other 600 ml # Voids 3 3 Objective General Appearance: no acute distress HEENT: normocephalic, anicteric, R eye prosthesis, Left eye tunneled vision only Respiratory/Chest: chest wall non-tender, no respiratory distress Cardiovascular: normal peripheral pulses, regular rhythm, Abdomen: normal bowel sounds, soft, non tender, no organomegaly Extremities: no edema Neurologic/Psychiatric: abnormal gait - ambulates with walker , alert, oriented x 3, responsive Musculoskeletal: normal muscle bulk Laboratory Tests 01/17/18 05:45: White Blood Count 7.6, Red Blood Count 3.81L, Hemoglobin 11.3L, Hematocrit 34.7L , Mean Corpuscular Volume 91, Mean Corpuscular Hemoglobin 29.6, Mean Corpuscular Hemoglobin Concent 32.5, Red Cell Distribution Width 13.1, Platelet Count 275, Mean Platelet Volume 5.4L, Neutrophils (%) (Auto) 62.2, Lymphocytes ( %) (Auto) 28.1, Monocytes (%) (Auto) 6.3, Eosinophils (%) (Auto) 2.0, Basophils (%) (Auto) 1.4, Sodium Level 142, Potassium Level 3.4L, Chloride Level 107, Carbon Dioxide Level 28, Anion Gap 7, Blood Urea Nitrogen 16, Creatinine 0.8, Estimat Glomerular Filtration Rate > 60, Glucose Level 163H, Calcium Level 8.8 Current Medications Medications (Trade) Dose Ordered Sig/Danni Route PRN Reason Start Time Stop Time Status Last Admin Dose Admin Acetaminophen (Tylenol) 650 mg Q4H PRN ORAL FEVER (temp>100.5F) 01/16/18 02:00 02/12/18 13:59 Albuterol/ Ipratropium (Albuterol/ Ipratropium) 3 ml Q4H PRN HHN Shortness of Breath 01/16/18 02:00 01/18/18 13:59 Amitriptyline HCl (Elavil) 25 mg BEDTIME ORAL 01/16/18 21:00 02/13/18 20:59 01/16/18 21:12 Amlodipine Besylate (Norvasc) 10 mg DAILY ORAL 01/16/18 09:00 02/13/18 08:59 01/17/18 08:27 Cephalexin (Keflex) 500 mg Q12HR ORAL 01/16/18 09:00 01/22/18 20:59 01/17/18 08:26 Chlorhexidine Gluconate (Margot-Hex 2%) 1 applic DAILY@2000 TOPIC 01/16/18 20:00 02/12/18 19:59 01/16/18 21:13 Diazepam (Valium) 5 mg EVERY 8 HOURS PRN ORAL muscle spasm 01/16/18 06:00 01/21/18 09:59 01/16/18 14:37 Diphenhydramine HCl (Benadryl) 50 mg Q6H PRN ORAL Itching 01/16/18 04:00 02/12/18 15:59 Duloxetine HCl (Cymbalta) 30 mg DAILY ORAL 01/16/18 09:00 02/13/18 08:59 01/17/18 08:27 Gabapentin (Neurontin) 300 mg THREE TIMES A DAY ORAL 01/16/18 09:00 02/12/18 15:29 01/17/18 08:27 Heparin Sodium (Porcine) (Heparin 5000 units/ml) 5,000 units EVERY 12 HOURS SUBQ 01/16/18 09:00 02/12/18 20:59 01/17/18 08:33 Hydromorphone HCl (Dilaudid) 2 mg Q4H PRN IVP severe pain 01/16/18 00:00 01/20/18 15:59 01/17/18 05:32 Lisinopril (Prinivil) 20 mg DAILY ORAL 01/16/18 09:00 02/13/18 12:44 01/17/18 08:26 Lorazepam (Ativan 2mg/ml 1ml) 2 mg Q4H PRN IV For Anxiety 01/16/18 12:00 01/23/18 11:59 01/16/18 12:48 Morphine Sulfate (MS Contin) 15 mg Q8H ORAL 01/16/18 00:00 01/20/18 15:59 01/17/18 08:27 Nitroglycerin (Ntg) 0.4 mg Q5M PRN SL Prn Chest Pain 01/15/18 22:45 02/12/18 13:59 Ondansetron HCl (Zofran) 4 mg Q6H PRN IVP Nausea & Vomiting 01/16/18 02:00 02/12/18 13:59 Pantoprazole (Protonix) 40 mg DAILY ORAL 01/16/18 09:00 02/13/18 08:59 01/17/18 08:27 Polyethylene Glycol (Miralax) 17 gm DAILYPRN PRN ORAL Constipation 01/16/18 14:00 02/12/18 13:59 Temazepam (Restoril) 15 mg HSPRN PRN ORAL Insomnia 01/16/18 21:00 01/20/18 20:59 Ness Junior [employer] Jan 17, 2018 09:28
[2018-01-17] MEDS ORDERED: Albuterol/Ipratropium 3ml neb HHN PRN (09:29)
--- NOTE | 2018-01-17 10:00 | Infectious Diseases Prog Note ---
Assessment/Plan Assessment/Plan Pyuria/bacteriuria, probable UTI (+foul smelling urine, patient refers bc of her cauda equina syndrome, sensation in the area is impaired) -u/a wbc 10-15, nit +, leuk +3; ucx >100k E.coli (R amp, otherwise S) Afebrile No leukocytosis Hypertensive urgency Acute on chronic pain syndrome (acute LE pain) HTN MDD/Anxiety Chronic pain syndrome w/ opoid dependency Lumbar DDD/spondylosis/herniated disc w/ failed marija surgery syndrome cauda equina syndrome hysterectomy appendectomy Plan: Keflex # 2/2 for probable UTI -01/15 SP Ceftriaxone #3/5 -f/u cx -Monitor CBC/CMP, temperatures -pain management Will continue to follow along with you. Subjective Allergies: Coded Allergies: IRON (Verified Allergy, Unknown, Rash, 08/09/17) had nausea, vomiting and rashes METHADONE (Verified Allergy, Unknown, 06/04/17) MORPHINE (Verified Allergy, Unknown, 01/13/18) PREGABALIN (Verified Allergy, Unknown, 06/04/17) Objective Vital Signs Last 24 Hour Vital Signs Date Time Temp Pulse Resp B/P (MAP) Pulse Ox O2 Delivery O2 Flow Rate FiO2 01/17/18 09:35 98.7 01/17/18 09:27 Room Air 01/17/18 08:57 98.7 01/17/18 08:27 98.7 01/17/18 08:27 103 131/90 01/17/18 08:26 131/90 01/17/18 08:00 98.7 103 20 131/90 (104) 97 98.7 01/17/18 06:19 94 158/85 (109) 01/17/18 04:00 98.5 109 21 167/105 (125) 98 98.5 01/17/18 00:00 97.8 67 20 107/51 (69) 95 97.8 01/16/18 21:00 Room Air 01/16/18 20:00 97.6 75 20 130/69 (89) 94 97.6 01/16/18 18:30 98.7 01/16/18 17:40 98.7 01/16/18 17:10 98.7 01/16/18 16:00 98.7 56 17 135/73 (93) 95 98.7 01/16/18 12:00 98.6 106 20 162/91 (114) 96 98.6 01/16/18 11:04 98.5 Height (Feet): 5 Height (Inches): 0.00 Weight (Pounds): 150 Laboratory Tests Test 01/17/18 05:45 White Blood Count 7.6 K/UL (4.8-10.8) Red Blood Count 3.81 M/UL (4.20-5.40) L Hemoglobin 11.3 G/DL (12.0-16.0) L Hematocrit 34.7 % (37.0-47.0) L Mean Corpuscular Volume 91 FL (80-99) Mean Corpuscular Hemoglobin 29.6 PG (27.0-31.0) Mean Corpuscular Hemoglobin Concent 32.5 G/DL (32.0-36.0) Red Cell Distribution Width 13.1 % (11.6-14.8) Platelet Count 275 K/UL (150-450) Mean Platelet Volume 5.4 FL (6.5-10.1) L Neutrophils (%) (Auto) 62.2 % (45.0-75.0) Lymphocytes (%) (Auto) 28.1 % (20.0-45.0) Monocytes (%) (Auto) 6.3 % (1.0-10.0) Eosinophils (%) (Auto) 2.0 % (0.0-3.0) Basophils (%) (Auto) 1.4 % (0.0-2.0) Sodium Level 142 MMOL/L (136-145) Potassium Level 3.4 MMOL/L (3.5-5.1) L Chloride Level 107 MMOL/L (98-107) Carbon Dioxide Level 28 MMOL/L (21-32) Anion Gap 7 mmol/L (5-15) Blood Urea Nitrogen 16 mg/dL (7-18) Creatinine 0.8 MG/DL (0.55-1.30) Estimat Glomerular Filtration Rate > 60 mL/min (>60) Glucose Level 163 MG/DL (74-106) H Calcium Level 8.8 MG/DL (8.5-10.1) Current Medications Medications (Trade) Dose Ordered Sig/Danni Route PRN Reason Start Time Stop Time Status Last Admin Dose Admin Acetaminophen (Tylenol) 650 mg Q4H PRN ORAL FEVER (temp>100.5F) 01/16/18 02:00 02/12/18 13:59 Albuterol/ Ipratropium (Albuterol/ Ipratropium) 3 ml Q4H PRN HHN Shortness of Breath 01/17/18 09:29 01/19/18 09:28 Amitriptyline HCl (Elavil) 25 mg BEDTIME ORAL 01/16/18 21:00 02/13/18 20:59 01/16/18 21:12 Amlodipine Besylate (Norvasc) 10 mg DAILY ORAL 01/16/18 09:00 02/13/18 08:59 01/17/18 08:27 Cephalexin (Keflex) 500 mg Q12HR ORAL 01/16/18 09:00 01/22/18 20:59 01/17/18 08:26 Chlorhexidine Gluconate (Margot-Hex 2%) 1 applic DAILY@2000 TOPIC 01/16/18 20:00 02/12/18 19:59 01/16/18 21:13 Diazepam (Valium) 5 mg EVERY 8 HOURS PRN ORAL muscle spasm 01/16/18 06:00 01/21/18 09:59 01/16/18 14:37 Diphenhydramine HCl (Benadryl) 50 mg Q6H PRN ORAL Itching 01/16/18 04:00 02/12/18 15:59 01/17/18 09:35 Duloxetine HCl (Cymbalta) 30 mg DAILY ORAL 01/16/18 09:00 02/13/18 08:59 01/17/18 08:27 Gabapentin (Neurontin) 300 mg THREE TIMES A DAY ORAL 01/16/18 09:00 02/12/18 15:29 01/17/18 08:27 Heparin Sodium (Porcine) (Heparin 5000 units/ml) 5,000 units EVERY 12 HOURS SUBQ 01/16/18 09:00 02/12/18 20:59 01/17/18 08:33 Hydromorphone HCl (Dilaudid) 2 mg Q4H PRN IVP severe pain 01/16/18 00:00 01/20/18 15:59 01/17/18 09:35 Lisinopril (Prinivil) 20 mg DAILY ORAL 01/16/18 09:00 02/13/18 12:44 01/17/18 08:26 Lorazepam (Ativan 2mg/ml 1ml) 2 mg Q4H PRN IV For Anxiety 01/16/18 12:00 01/23/18 11:59 01/16/18 12:48 Morphine Sulfate (MS Contin) 15 mg Q8H ORAL 01/16/18 00:00 01/20/18 15:59 01/17/18 08:27 Nitroglycerin (Ntg) 0.4 mg Q5M PRN SL Prn Chest Pain 01/15/18 22:45 02/12/18 13:59 Ondansetron HCl (Zofran) 4 mg Q6H PRN IVP Nausea & Vomiting 01/16/18 02:00 02/12/18 13:59 Pantoprazole (Protonix) 40 mg DAILY ORAL 01/16/18 09:00 02/13/18 08:59 01/17/18 08:27 Polyethylene Glycol (Miralax) 17 gm DAILYPRN PRN ORAL Constipation 01/16/18 14:00 02/12/18 13:59 Temazepam (Restoril) 15 mg HSPRN PRN ORAL Insomnia 01/16/18 21:00 01/20/18 20:59 Balbir Pederson MD Jan 17, 2018 10:00
--- NOTE | 2018-01-17 11:08 | General Progress Note ---
Assessment/Plan Problem List: (1) Anxiety ICD Codes: F41.9 - Anxiety disorder, unspecified SNOMED: 56680196 (2) Urinary tract infection ICD Codes: N39.0 - Urinary tract infection, site not specified SNOMED: 94632714 (3) Intractable back pain ICD Codes: M54.9 - Dorsalgia, unspecified SNOMED: 944752025 (4) Chronic pain syndrome ICD Codes: G89.4 - Chronic pain syndrome SNOMED: 575583078 (5) Muscle spasm ICD Codes: M62.838 - Other muscle spasm SNOMED: 18584311, 21739091 (6) Accelerated hypertension ICD Codes: I10 - Essential (primary) hypertension SNOMED: 73472179 Status: stable, progressing Assessment/Plan ot pt diet pain bp control dc plan w hh Subjective Constitutional: Reports: weakness Allergies: Coded Allergies: IRON (Verified Allergy, Unknown, Rash, 08/09/17) had nausea, vomiting and rashes METHADONE (Verified Allergy, Unknown, 06/04/17) MORPHINE (Verified Allergy, Unknown, 01/13/18) PREGABALIN (Verified Allergy, Unknown, 06/04/17) All Systems: reviewed and negative except above Subjective sleepy calm c/o back and leg pain Objective Last 24 Hour Vital Signs Date Time Temp Pulse Resp B/P (MAP) Pulse Ox O2 Delivery O2 Flow Rate FiO2 01/17/18 10:05 98.7 01/17/18 09:50 83 18 Room Air 21 01/17/18 09:35 98.7 01/17/18 09:27 Room Air 01/17/18 08:57 98.7 01/17/18 08:27 98.7 01/17/18 08:27 103 131/90 01/17/18 08:26 131/90 01/17/18 08:00 98.7 103 20 131/90 (104) 97 98.7 01/17/18 06:19 94 158/85 (109) 01/17/18 04:00 98.5 109 21 167/105 (125) 98 98.5 01/17/18 00:00 97.8 67 20 107/51 (69) 95 97.8 01/16/18 21:00 Room Air 01/16/18 20:00 97.6 75 20 130/69 (89) 94 97.6 01/16/18 18:30 98.7 01/16/18 17:10 98.7 01/16/18 16:00 98.7 56 17 135/73 (93) 95 98.7 01/16/18 12:00 98.6 106 20 162/91 (114) 96 98.6 Intake and Output 01/16/18 01/17/18 19:00 07:00 Intake Total 600 ml 240 ml Balance 600 ml 240 ml Intake Oral 240 ml Other 600 ml # Voids 3 3 Laboratory Tests 01/17/18 05:45: White Blood Count 7.6, Red Blood Count 3.81L, Hemoglobin 11.3L, Hematocrit 34.7L , Mean Corpuscular Volume 91, Mean Corpuscular Hemoglobin 29.6, Mean Corpuscular Hemoglobin Concent 32.5, Red Cell Distribution Width 13.1, Platelet Count 275, Mean Platelet Volume 5.4L, Neutrophils (%) (Auto) 62.2, Lymphocytes ( %) (Auto) 28.1, Monocytes (%) (Auto) 6.3, Eosinophils (%) (Auto) 2.0, Basophils (%) (Auto) 1.4, Sodium Level 142, Potassium Level 3.4L, Chloride Level 107, Carbon Dioxide Level 28, Anion Gap 7, Blood Urea Nitrogen 16, Creatinine 0.8, Estimat Glomerular Filtration Rate > 60, Glucose Level 163H, Calcium Level 8.8 Height (Feet): 5 Height (Inches): 0.00 Weight (Pounds): 150 General Appearance: alert EENT: normal ENT inspection Neck: normal alignment Cardiovascular: normal peripheral pulses, normal rate, regular rhythm Respiratory/Chest: chest wall non-tender, lungs clear, normal breath sounds Abdomen: normal bowel sounds, non tender, soft Extremities: normal inspection Edema: no edema noted Arm (L), no edema noted Arm (R), no edema noted Leg (L), no edema noted Leg (R), no edema noted Pedal (L), no edema noted Pedal (R), no edema noted Generalized Neurologic: responsive, motor weakness Skin: normal pigmentation, warm/dry Ernesto Magallon DO Jan 17, 2018 11:08
[2018-01-17] MEDS: LORazepam Inj 2mg/ml 1ml IV PRN ×3 (11:39→23:58)
[2018-01-17] MEDS: Dyna-Hex 2% Top Sol 2oz TOPIC SCH (20:40)
[2018-01-18] VITALS: BP 136/99
[2018-01-18 04:00] VITALS: BP 140/76
--- NOTE | 2018-01-18 06:45 | Consultation ---
DATE OF CONSULTATION: 01/18/2018 "NOTE: POOR AUDIO QUALITY" INITIAL PSYCHIATRIC EVALUATION CONSULTING PHYSICIAN: Amanda Crews M.D. HISTORY OF PRESENT ILLNESS: This is a 52-year-old female patient with hypertension and chronic pain. This patient was admitted to [facility]. She is very confused and disorganized. She has lot of mood lability and depression worsened by stress of her medical illness. That is why, her attending has requested daily psychiatric consultation for this patient. She was seen and assessed in her room today. She says "I'm in a lot of pain me, I'm very depressed, and I don't know what to do." After the patient's initial interview, she says that she has been feeling very depressed because she is in pain. She feels like the medications that were working for her before such as Dilaudid are no longer working for and because of that, now she has overwhelming feeling of helplessness, hopelessness, low energy, poor appetite, and loss of interest in activity. ALLERGIES: She has allergies to iron, methadone, morphine, and pregabalin. PAST MEDICAL HISTORY: She has a history of opiate dependence, hypertension, chronic back pain, muscle spasm, hypertension, chronic pain syndrome, urinary tract infection, hypernatremia. She also states she has cauda equina syndrome. PSYCHOTROPIC MEDICATIONS ON ADMISSION: This patient is normally on psychotropic medication regimen of Neurontin 300 mg three times a day and Cymbalta 30 mg daily, but she says this is not controlling her anxiety or pain appropriately and she used marijuana as she mentioned that some of her medications are antidepressants. She gets upset and being offended by. SOCIAL HISTORY: This patient is currently living in a private residence. Financially supported by [employer] and Medicare. She is single. FAMILY PSYCHIATRIC HISTORY: Denies. SUBSTANCE ABUSE HISTORY: Denies pain. PSYCHIATRIC HISTORY: History of generalized anxiety and major depressive disorder. MENTAL STATUS EXAMINATION: This is a 52-year-old female patient. Appearance is disheveled. Attitude, irritable and agitated. Affect, guarded and restricted. Intellect poor. Mood depressed and anxious. Motor activity, psychomotor agitation. Attention span is poor. Orientation x2. Speech is low volume and slurred. Thought process, disorganized. Thought content, she has some paranoid delusions. Insight and judgment are poor. DIAGNOSES: PSYCHIATRIC: Major depressive disorder, moderate, recurrent without psychotic features. MEDICAL: Chronic pain. PSYCHOSOCIAL STRESSORS: Financial. PLAN: I am going to titrate up on her Cymbalta to a dose of 60 mg daily. She depression and anxiety, but also to help with pain prophylaxis. Provided 20 minutes of cognitive behavior therapy automatic negative thoughts to help her to ____ negative thoughts to more positive thoughts to reduce depression and anxiety. I would like to thank, Dr. Ernesto Magallon, for this interesting consultation. I will continue to follow this patient with you throughout her hospital course. Chart reviewed. Discussed with staff. The patient was seen and assessed at bedside. Amanda Crews M.D. DR: ELI JOB#: [id number] CC:
[2018-01-18 07:41] LABS: ANION GAP 4 mmol/L (5-15); BLOOD UREA NITROGEN 13 mg/dL (7-18); CALCIUM 9.4 MG/DL (8.5-10.1); CARBON DIOXIDE 31 MMOL/L (21-32); CHLORIDE 106 MMOL/L (98-107); CREATININE 0.7 MG/DL (0.55-1.30); SODIUM 141 MMOL/L (136-145)
[2018-01-18 08:00] VITALS: BP 149/82
--- NOTE | 2018-01-18 08:35 | Infectious Diseases Prog Note ---
Assessment/Plan Assessment/Plan Pyuria/bacteriuria, probable UTI (+foul smelling urine, patient refers bc of her cauda equina syndrome, sensation in the area is impaired) -u/a wbc 10-15, nit +, leuk +3; ucx >100k E.coli (R amp, otherwise S) Afebrile No leukocytosis Hypertensive urgency Acute on chronic pain syndrome (acute LE pain) HTN MDD/Anxiety Chronic pain syndrome w/ opoid dependency Lumbar DDD/spondylosis/herniated disc w/ failed marija surgery syndrome cauda equina syndrome hysterectomy appendectomy Plan: Stop Keflex #2/2and monitor off antibiotics -01/15 SP Ceftriaxone #3/5 -f/u cx -Monitor CBC/CMP, temperatures -pain management Will continue to follow along with you. Subjective Allergies: Coded Allergies: IRON (Verified Allergy, Unknown, Rash, 08/09/17) had nausea, vomiting and rashes METHADONE (Verified Allergy, Unknown, 06/04/17) MORPHINE (Verified Allergy, Unknown, 01/13/18) PREGABALIN (Verified Allergy, Unknown, 06/04/17) Subjective Patient with back pain No fever Objective Vital Signs Last 24 Hour Vital Signs Date Time Temp Pulse Resp B/P (MAP) Pulse Ox O2 Delivery O2 Flow Rate FiO2 01/18/18 07:14 97.7 01/18/18 04:00 97.7 92 18 140/76 (97) 97 97.7 01/18/18 00:00 98.1 117 20 136/99 (111) 95 98.1 01/17/18 21:00 Room Air 01/17/18 20:03 84 18 Room Air 21 01/17/18 20:00 98.1 100 17 148/82 (104) 99 98.1 01/17/18 17:33 98.2 01/17/18 16:57 98.2 01/17/18 16:27 98.2 01/17/18 16:06 98.2 84 21 138/84 (102) 97 98.2 01/17/18 13:32 98.3 01/17/18 12:00 98.3 110 21 154/98 (116) 97 98.3 01/17/18 09:50 83 18 Room Air 21 01/17/18 09:35 98.7 01/17/18 09:27 Room Air Height (Feet): 5 Height (Inches): 0.00 Weight (Pounds): 150 General Appearance: other - In Pain HEENT: normocephalic, EOMI Respiratory/Chest: lungs clear, normal breath sounds Cardiovascular: normal peripheral pulses, regular rhythm, no gallop/murmur Abdomen: normal bowel sounds, soft, non tender Extremities: no cyanosis, no clubbing, no edema, pedal pulses normal Neurologic/Psychiatric: no motor/sensory deficits, oriented x 3 Laboratory Tests Test 01/18/18 06:45 Sodium Level 141 MMOL/L (136-145) Potassium Level 4.0 MMOL/L (3.5-5.1) Chloride Level 106 MMOL/L (98-107) Carbon Dioxide Level 31 MMOL/L (21-32) Anion Gap 4 mmol/L (5-15) L Blood Urea Nitrogen 13 mg/dL (7-18) Creatinine 0.7 MG/DL (0.55-1.30) Estimat Glomerular Filtration Rate > 60 mL/min (>60) Glucose Level 105 MG/DL (74-106) Calcium Level 9.4 MG/DL (8.5-10.1) Current Medications Medications (Trade) Dose Ordered Sig/Danni Route PRN Reason Start Time Stop Time Status Last Admin Dose Admin Acetaminophen (Tylenol) 650 mg Q4H PRN ORAL FEVER (temp>100.5F) 01/16/18 02:00 02/12/18 13:59 Albuterol/ Ipratropium (Albuterol/ Ipratropium) 3 ml Q4H PRN HHN Shortness of Breath 01/17/18 09:29 01/19/18 09:28 Amitriptyline HCl (Elavil) 25 mg BEDTIME ORAL 01/16/18 21:00 02/13/18 20:59 01/17/18 20:40 Amlodipine Besylate (Norvasc) 10 mg DAILY ORAL 01/16/18 09:00 02/13/18 08:59 01/17/18 08:27 Cephalexin (Keflex) 500 mg Q12HR ORAL 01/16/18 09:00 01/22/18 20:59 01/17/18 20:40 Chlorhexidine Gluconate (Margot-Hex 2%) 1 applic DAILY@1999 TOPIC 01/16/18 20:00 02/12/18 19:59 01/17/18 20:40 Diazepam (Valium) 5 mg Q4H PRN ORAL muscle spasm 01/17/18 11:30 01/24/18 11:29 01/18/18 02:50 Diphenhydramine HCl (Benadryl) 50 mg Q6H PRN ORAL Itching 01/16/18 04:00 02/12/18 15:59 01/17/18 17:33 Duloxetine HCl (Cymbalta) 60 mg DAILY ORAL 01/18/18 09:00 02/17/18 08:59 Gabapentin (Neurontin) 300 mg THREE TIMES A DAY ORAL 01/16/18 09:00 02/12/18 15:29 01/17/18 18:10 Heparin Sodium (Porcine) (Heparin 5000 units/ml) 5,000 units EVERY 12 HOURS SUBQ 01/16/18 09:00 02/12/18 20:59 01/17/18 20:42 Hydromorphone HCl (Dilaudid) 2 mg Q4H PRN IVP severe pain 01/16/18 00:00 01/20/18 15:59 01/18/18 06:44 Lisinopril (Prinivil) 20 mg DAILY ORAL 01/16/18 09:00 02/13/18 12:44 01/17/18 08:26 Lorazepam (Ativan 2mg/ml 1ml) 2 mg Q4H PRN IV For Anxiety 01/16/18 12:00 01/23/18 11:59 01/17/18 23:58 Morphine Sulfate (MS Contin) 15 mg Q8H ORAL 01/16/18 00:00 01/20/18 15:59 01/17/18 23:51 Nitroglycerin (Ntg) 0.4 mg Q5M PRN SL Prn Chest Pain 01/15/18 22:45 02/12/18 13:59 Ondansetron HCl (Zofran) 4 mg Q6H PRN IVP Nausea & Vomiting 01/16/18 02:00 02/12/18 13:59 Pantoprazole (Protonix) 40 mg DAILY ORAL 01/16/18 09:00 02/13/18 08:59 01/17/18 08:27 Polyethylene Glycol (Miralax) 17 gm DAILYPRN PRN ORAL Constipation 01/16/18 14:00 02/12/18 13:59 Temazepam (Restoril) 15 mg HSPRN PRN ORAL Insomnia 01/16/18 21:00 01/20/18 20:59 Balbir Pederson MD Jan 18, 2018 08:35
[2018-01-18] MEDS: Cephalexin 500mg cap ORAL SCH ×2 (08:50→20:30)
[2018-01-18] MEDS: DULoxetine 30mg cap ORAL SCH (08:53)
[2018-01-18] MEDS: MS Contin 15mg tab ORAL SCH ×2 (08:53→16:32)
[2018-01-18] MEDS: Lisinopril 20mg tab ORAL SCH (08:54)
[2018-01-18] MEDS: Heparin 5000 units/ml inj SUBQ SCH ×2 (08:56→20:37)
[2018-01-18 12:00] VITALS: BP 150/88
[2018-01-18] MEDS: LORazepam Inj 2mg/ml 1ml IV PRN ×3 (13:15→23:42)
--- NOTE | 2018-01-18 13:22 | Pulmonology Progress Note ---
Assessment/Plan Problems: (1) Accelerated hypertension (2) Urinary tract infection (3) Opioid dependence (4) Anxiety (5) Chronic pain syndrome Assessment/Plan sbp still around 160-150 on lisinopril add hydralazine f/u urine cultures on Ceftriaxone Subjective Interval Events: still c/o pain Allergies: Coded Allergies: IRON (Verified Allergy, Unknown, Rash, 08/09/17) had nausea, vomiting and rashes METHADONE (Verified Allergy, Unknown, 06/04/17) MORPHINE (Verified Allergy, Unknown, 01/13/18) PREGABALIN (Verified Allergy, Unknown, 06/04/17) Objective Last 24 Hour Vital Signs Date Time Temp Pulse Resp B/P (MAP) Pulse Ox O2 Delivery O2 Flow Rate FiO2 01/18/18 12:00 97.4 94 20 150/88 (108) 98 97.4 01/18/18 11:14 97.7 01/18/18 10:44 97.7 01/18/18 09:35 Room Air 01/18/18 09:23 97.7 01/18/18 08:54 155/100 01/18/18 08:53 97.7 01/18/18 08:53 82 155/100 01/18/18 08:16 90 18 Room Air 21 01/18/18 08:00 98.1 98 18 149/82 (104) 98 98.1 01/18/18 04:00 97.7 92 18 140/76 (97) 97 97.7 01/18/18 00:00 98.1 117 20 136/99 (111) 95 98.1 01/17/18 21:00 Room Air 01/17/18 20:03 84 18 Room Air 21 01/17/18 20:00 98.1 100 17 148/82 (104) 99 98.1 01/17/18 17:33 98.2 01/17/18 16:27 98.2 01/17/18 16:06 98.2 84 21 138/84 (102) 97 98.2 01/17/18 13:32 98.3 Intake and Output 01/17/18 01/18/18 19:00 07:00 Intake Total 1200 ml 240 ml Balance 1200 ml 240 ml Intake Oral 1200 ml 240 ml # Voids 1 1 # Bowel Movements 1 General Appearance: WD/WN HEENT: normocephalic, atraumatic Respiratory/Chest: chest wall non-tender, lungs clear Breasts: no masses Cardiovascular: normal peripheral pulses, normal rate, no JVD Abdomen: normal bowel sounds, soft, non tender Genitourinary: normal external genitalia Extremities: no clubbing Skin: no rash Laboratory Tests 01/18/18 06:45: Sodium Level 141, Potassium Level 4.0, Chloride Level 106, Carbon Dioxide Level 31, Anion Gap 4L, Blood Urea Nitrogen 13, Creatinine 0.7, Estimat Glomerular Filtration Rate > 60, Glucose Level 105, Calcium Level 9.4 Current Medications Medications (Trade) Dose Ordered Sig/Danni Route PRN Reason Start Time Stop Time Status Last Admin Dose Admin Acetaminophen (Tylenol) 650 mg Q4H PRN ORAL FEVER (temp>100.5F) 01/16/18 02:00 02/12/18 13:59 Albuterol/ Ipratropium (Albuterol/ Ipratropium) 3 ml Q4H PRN HHN Shortness of Breath 01/17/18 09:29 01/19/18 09:28 Amitriptyline HCl (Elavil) 25 mg BEDTIME ORAL 01/16/18 21:00 02/13/18 20:59 01/17/18 20:40 Amlodipine Besylate (Norvasc) 10 mg DAILY ORAL 01/16/18 09:00 02/13/18 08:59 01/18/18 08:53 Cephalexin (Keflex) 500 mg Q12HR ORAL 01/16/18 09:00 01/22/18 20:59 01/18/18 08:50 Chlorhexidine Gluconate (Margot-Hex 2%) 1 applic DAILY@2000 TOPIC 01/16/18 20:00 02/12/18 19:59 01/17/18 20:40 Diazepam (Valium) 5 mg Q4H PRN ORAL muscle spasm 01/17/18 11:30 01/24/18 11:29 01/18/18 10:43 Diphenhydramine HCl (Benadryl) 50 mg Q6H PRN ORAL Itching 01/16/18 04:00 02/12/18 15:59 01/18/18 08:53 Duloxetine HCl (Cymbalta) 60 mg DAILY ORAL 01/18/18 09:00 02/17/18 08:59 01/18/18 08:53 Gabapentin (Neurontin) 300 mg THREE TIMES A DAY ORAL 01/16/18 09:00 02/12/18 15:29 01/18/18 13:15 Heparin Sodium (Porcine) (Heparin 5000 units/ml) 5,000 units EVERY 12 HOURS SUBQ 01/16/18 09:00 02/12/18 20:59 01/18/18 08:56 Hydromorphone HCl (Dilaudid) 2 mg Q4H PRN IVP severe pain 01/16/18 00:00 01/20/18 15:59 01/18/18 10:44 Lisinopril (Prinivil) 20 mg DAILY ORAL 01/16/18 09:00 02/13/18 12:44 01/18/18 08:54 Lorazepam (Ativan 2mg/ml 1ml) 2 mg Q4H PRN IV For Anxiety 01/16/18 12:00 01/23/18 11:59 01/18/18 13:15 Morphine Sulfate (MS Contin) 15 mg Q8H ORAL 01/16/18 00:00 01/20/18 15:59 01/18/18 08:53 Nitroglycerin (Ntg) 0.4 mg Q5M PRN SL Prn Chest Pain 01/15/18 22:45 02/12/18 13:59 Ondansetron HCl (Zofran) 4 mg Q6H PRN IVP Nausea & Vomiting 01/16/18 02:00 02/12/18 13:59 Pantoprazole (Protonix) 40 mg DAILY ORAL 01/16/18 09:00 02/13/18 08:59 01/18/18 08:53 Polyethylene Glycol (Miralax) 17 gm DAILYPRN PRN ORAL Constipation 01/16/18 14:00 02/12/18 13:59 Temazepam (Restoril) 15 mg HSPRN PRN ORAL Insomnia 01/16/18 21:00 01/20/18 20:59 Adam Tom MD Jan 18, 2018 13:22
--- NOTE | 2018-01-18 14:51 | General Progress Note ---
Assessment/Plan Problem List: (1) Anxiety ICD Codes: F41.9 - Anxiety disorder, unspecified SNOMED: 94961486 (2) Urinary tract infection ICD Codes: N39.0 - Urinary tract infection, site not specified SNOMED: 67332336 (3) Intractable back pain ICD Codes: M54.9 - Dorsalgia, unspecified SNOMED: 063798390 (4) Chronic pain syndrome ICD Codes: G89.4 - Chronic pain syndrome SNOMED: 501336175 (5) Muscle spasm ICD Codes: M62.838 - Other muscle spasm SNOMED: 41714460, 79410205 (6) Accelerated hypertension ICD Codes: I10 - Essential (primary) hypertension SNOMED: 91256140 Status: stable, progressing Assessment/Plan ot pt diet pain bp control dc plan aru Subjective Constitutional: Reports: weakness Allergies: Coded Allergies: IRON (Verified Allergy, Unknown, Rash, 08/09/17) had nausea, vomiting and rashes METHADONE (Verified Allergy, Unknown, 06/04/17) MORPHINE (Verified Allergy, Unknown, 01/13/18) PREGABALIN (Verified Allergy, Unknown, 06/04/17) All Systems: reviewed and negative except above Subjective sleepy calm c/o back and leg pain Objective Last 24 Hour Vital Signs Date Time Temp Pulse Resp B/P (MAP) Pulse Ox O2 Delivery O2 Flow Rate FiO2 01/18/18 12:00 97.4 94 20 150/88 (108) 98 97.4 01/18/18 11:14 97.7 01/18/18 10:44 97.7 01/18/18 09:35 Room Air 01/18/18 09:23 97.7 01/18/18 08:54 155/100 01/18/18 08:53 97.7 01/18/18 08:53 82 155/100 01/18/18 08:16 90 18 Room Air 21 01/18/18 08:00 98.1 98 18 149/82 (104) 98 98.1 01/18/18 04:00 97.7 92 18 140/76 (97) 97 97.7 01/18/18 00:00 98.1 117 20 136/99 (111) 95 98.1 01/17/18 21:00 Room Air 01/17/18 20:03 84 18 Room Air 21 01/17/18 20:00 98.1 100 17 148/82 (104) 99 98.1 01/17/18 17:33 98.2 01/17/18 16:27 98.2 01/17/18 16:06 98.2 84 21 138/84 (102) 97 98.2 Intake and Output 01/17/18 01/18/18 19:00 07:00 Intake Total 1200 ml 240 ml Balance 1200 ml 240 ml Intake Oral 1200 ml 240 ml # Voids 1 1 # Bowel Movements 1 Laboratory Tests 01/18/18 06:45: Sodium Level 141, Potassium Level 4.0, Chloride Level 106, Carbon Dioxide Level 31, Anion Gap 4L, Blood Urea Nitrogen 13, Creatinine 0.7, Estimat Glomerular Filtration Rate > 60, Glucose Level 105, Calcium Level 9.4 Height (Feet): 5 Height (Inches): 0.00 Weight (Pounds): 150 General Appearance: lethargic EENT: normal ENT inspection Neck: normal alignment Cardiovascular: normal peripheral pulses, normal rate, regular rhythm Respiratory/Chest: chest wall non-tender, lungs clear, normal breath sounds Abdomen: normal bowel sounds, non tender, soft Extremities: normal inspection Edema: no edema noted Arm (L), no edema noted Arm (R), no edema noted Leg (L), no edema noted Leg (R), no edema noted Pedal (L), no edema noted Pedal (R), no edema noted Generalized Neurologic: responsive, motor weakness Skin: normal pigmentation, warm/dry Ernesto Magallon DO Jan 18, 2018 14:51
[2018-01-18 16:00] VITALS: BP 136/63
[2018-01-18] MEDS: HydrALAZINE 25mg tab ORAL SCH ×2 (17:39→23:40)
[2018-01-18 20:00] VITALS: BP 157/74
[2018-01-18] MEDS: Dyna-Hex 2% Top Sol 2oz TOPIC SCH (20:29)
[2018-01-19] VITALS: BP 149/78
[2018-01-19] MEDS: MS Contin 15mg tab ORAL SCH ×3 (02:58→08:07)
[2018-01-19 04:00] VITALS: BP 149/92
[2018-01-19] MEDS: LORazepam Inj 2mg/ml 1ml IV PRN ×2 (04:35→10:34)
[2018-01-19] MEDS: HydrALAZINE 25mg tab ORAL SCH ×2 (05:09→12:04)
[2018-01-19 06:24] LABS: BASOPHILS % (AUTO) 1.5 % (0.0-2.0); EOSINOPHILS % (AUTO) 2.1 % (0.0-3.0); HEMATOCRIT 34.7 % (37.0-47.0); HEMOGLOBIN 11.1 G/DL (12.0-16.0); LYMPHOCYTES % (AUTO) 25.5 % (20.0-45.0); MEAN CORPUSCULAR VOLUME 92 FL (80-99); MONOCYTES % (AUTO) 7.8 % (1.0-10.0); NEUTROPHILS % (AUTO) 63.1 % (45.0-75.0); PLATELET COUNT 280 K/UL (150-450); RED CELL DISTRIBUTION WIDTH 12.6 % (11.6-14.8); WHITE BLOOD COUNT 7.5 K/UL (4.8-10.8)
[2018-01-19 06:58] LABS: ALANINE AMINOTRANSFERASE 22 U/L (12-78); ALBUMIN/GLOBULIN RATIO 0.7 (1.0-2.7); ALKALINE PHOSPHATASE 152 U/L (46-116); ANION GAP 7 mmol/L (5-15); ASPARTATE AMINO TRANSFERASE 12 U/L (15-37); BILIRUBIN,TOTAL 0.2 MG/DL (0.2-1.0); BLOOD UREA NITROGEN 21 mg/dL (7-18); CARBON DIOXIDE 29 MMOL/L (21-32); CHLORIDE 104 MMOL/L (98-107); CREATININE 0.8 MG/DL (0.55-1.30); PHOSPHORUS 3.5 MG/DL (2.5-4.9); POTASSIUM 3.9 MMOL/L (3.5-5.1); SODIUM 140 MMOL/L (136-145)
[2018-01-19] MEDS: Cephalexin 500mg cap ORAL SCH (08:08)
[2018-01-19] MEDS: DULoxetine 30mg cap ORAL SCH (08:08)
[2018-01-19] MEDS: Heparin 5000 units/ml inj SUBQ SCH (08:10)
[2018-01-19] MEDS: Lisinopril 20mg tab ORAL SCH (08:11)
[2018-01-19 08:14] VITALS: BP 134/75
--- NOTE | 2018-01-19 08:36 | General Progress Note ---
Assessment/Plan Assessment/Plan (1) Lumbar DDD (2) Lumbar spondylosis (4) Lumbar Herniated disc (5) Lumbar Radiculopathy (6) FBSS (7) Arachnoiditis Patient to be continued on Neurontin, Dilaudid, Valium and Morphine ER. We will order a CT can Lumbar spine w/o contrast. D/w Dr. Singh and he concurred. Subjective Date patient seen: Jan 19, 2018 Time patient seen: 07:00 - am Allergies: Coded Allergies: IRON (Verified Allergy, Unknown, Rash, 08/09/17) had nausea, vomiting and rashes METHADONE (Verified Allergy, Unknown, 06/04/17) MORPHINE (Verified Allergy, Unknown, 01/13/18) PREGABALIN (Verified Allergy, Unknown, 06/04/17) Subjective REVIEW OF SYSTEMS: Denies rash, fever, chills, sweating, dizziness, drowsiness, blurred vision, sore throat, or change in her weight. No shortness of breath or chest pain. No nausea, vomiting, diarrhea, or blood in stool or urine. No bowel or bladder incontinence. No dysuria. She is complaining of low back pain. SUBJECTIVE: Patient found sitting in bed no signs of pain or distress. She continues to c/o spasms and is on the Valium and Ativan. Her pain has been reduced on the Dilaudid IV. I d/w her about increasing the Morphine ER to 30mg TID however patient refused and would only like to take the IV Dilaudid. She now has changed her statement about the SCS stating that it was not placed surgically but but her Pain Specialist through a needle. I explained patient that if she would like to have it removed we can have it done as an outpt. She seems to understand. At this time I d/w her the option for a CT scan to see if there has been any acute changes to her lower back due to an MRI not being able to be performed due to her SCS which can be be causing her Spasms. She understands. Objective Last 24 Hour Vital Signs Date Time Temp Pulse Resp B/P (MAP) Pulse Ox O2 Delivery O2 Flow Rate FiO2 01/19/18 08:14 97.7 100 16 134/75 (94) 99 97.7 01/19/18 08:11 134/75 01/19/18 08:11 100 134/75 01/19/18 08:07 97.7 01/19/18 05:09 168/81 01/19/18 04:00 97.7 112 16 149/92 (111) 99 97.7 01/19/18 00:00 97.1 102 19 149/78 (101) 97 97.1 01/18/18 23:40 149/78 01/18/18 21:00 Room Air 01/18/18 20:57 87 18 Room Air 21 01/18/18 20:00 98.1 95 18 157/74 (101) 100 98.1 01/18/18 17:39 150/88 01/18/18 17:02 97.4 01/18/18 16:32 97.4 01/18/18 16:00 98.0 99 20 136/63 (87) 98 98.0 01/18/18 15:31 97.4 01/18/18 15:01 97.4 01/18/18 12:00 97.4 94 20 150/88 (108) 98 97.4 01/18/18 10:44 97.7 01/18/18 09:35 Room Air 01/18/18 08:54 155/100 01/18/18 08:53 97.7 01/18/18 08:53 82 155/100 Intake and Output 01/18/18 01/19/18 19:00 07:00 Intake Total 1100 ml Balance 1100 ml Intake Oral 1100 ml # Voids 4 3 Laboratory Tests 01/19/18 05:15: White Blood Count 7.5, Red Blood Count 3.80L, Hemoglobin 11.1L, Hematocrit 34.7L , Mean Corpuscular Volume 92, Mean Corpuscular Hemoglobin 29.2, Mean Corpuscular Hemoglobin Concent 31.9L, Red Cell Distribution Width 12.6, Platelet Count 280, Mean Platelet Volume 5.3L, Neutrophils (%) (Auto) 63.1, Lymphocytes (%) (Auto) 25.5, Monocytes (%) (Auto) 7.8, Eosinophils (%) (Auto) 2.1, Basophils (%) (Auto) 1.5, Sodium Level 140, Potassium Level 3.9, Chloride Level 104, Carbon Dioxide Level 29, Anion Gap 7, Blood Urea Nitrogen 21H, Creatinine 0.8, Estimat Glomerular Filtration Rate > 60, Glucose Level 156H, Calcium Level 9.0, Phosphorus Level 3.5, Magnesium Level 1.7L, Total Bilirubin 0.2, Aspartate Amino Transf (AST/SGOT) 12L, Alanine Aminotransferase (ALT/SGPT) 22, Alkaline Phosphatase 152H, Total Protein 7.1, Albumin 3.0L, Globulin 4.1, Albumin/Globulin Ratio 0.7L Height (Feet): 5 Height (Inches): 0.00 Weight (Pounds): 179 Objective GENERAL: Alert, awake, and oriented x3. HEENT: PERRLA on the left. On the right, prosthetic eye noted. NECK: Range of motion is full in all directions. LUNGS: Clear. HEART: Regular. ABDOMEN: Tenderness to palpation. EXTREMITIES: No cyanosis. No clubbing. No edema. NEURO: 4/5 in all muscles b/l Tal Gunderson Jan 19, 2018 08:36
--- NOTE | 2018-01-19 11:06 | Infectious Diseases Prog Note ---
Assessment/Plan Assessment/Plan Pyuria/bacteriuria, probable UTI (+foul smelling urine, patient refers bc of her cauda equina syndrome, sensation in the area is impaired) -u/a wbc 10-15, nit +, leuk +3; ucx >100k E.coli (R amp, otherwise S) Afebrile No leukocytosis Hypertensive urgency Acute on chronic pain syndrome (acute LE pain) HTN MDD/Anxiety Chronic pain syndrome w/ opoid dependency Lumbar DDD/spondylosis/herniated disc w/ failed marija surgery syndrome cauda equina syndrome hysterectomy appendectomy Plan: Continue to monitor off abx -01/18 SP Keflex #2 -01/15 SP Ceftriaxone #3/5 -f/u cx -Monitor CBC/CMP, temperatures -pain management Will continue to follow along with you. Subjective Allergies: Coded Allergies: IRON (Verified Allergy, Unknown, Rash, 08/09/17) had nausea, vomiting and rashes METHADONE (Verified Allergy, Unknown, 06/04/17) MORPHINE (Verified Allergy, Unknown, 01/13/18) PREGABALIN (Verified Allergy, Unknown, 06/04/17) Subjective No Acute events No fever Objective Vital Signs Last 24 Hour Vital Signs Date Time Temp Pulse Resp B/P (MAP) Pulse Ox O2 Delivery O2 Flow Rate FiO2 01/19/18 10:15 97.7 01/19/18 09:51 Room Air 01/19/18 08:37 97.7 01/19/18 08:14 97.7 100 16 134/75 (94) 99 97.7 01/19/18 08:11 134/75 01/19/18 08:11 100 134/75 01/19/18 08:07 97.7 01/19/18 05:09 168/81 01/19/18 04:00 97.7 112 16 149/92 (111) 99 97.7 01/19/18 00:00 97.1 102 19 149/78 (101) 97 97.1 01/18/18 23:40 149/78 01/18/18 21:00 Room Air 01/18/18 20:57 87 18 Room Air 21 01/18/18 20:00 98.1 95 18 157/74 (101) 100 98.1 01/18/18 17:39 150/88 01/18/18 16:32 97.4 01/18/18 16:00 98.0 99 20 136/63 (87) 98 98.0 01/18/18 15:31 97.4 01/18/18 15:01 97.4 01/18/18 12:00 97.4 94 20 150/88 (108) 98 97.4 Height (Feet): 5 Height (Inches): 0.00 Weight (Pounds): 179 Objective GENL: NAD, Calm HEENT: normocephalic, EOMI Respiratory/Chest: lungs clear, normal breath sounds Cardiovascular: normal peripheral pulses, regular rhythm, no gallop/murmur Abdomen: normal bowel sounds, soft, non tender Extremities: no cyanosis, no clubbing, no edema, pedal pulses normal Neurologic/Psychiatric: no motor/sensory deficits, oriented x 3 Laboratory Tests Test 01/19/18 05:15 White Blood Count 7.5 K/UL (4.8-10.8) Red Blood Count 3.80 M/UL (4.20-5.40) L Hemoglobin 11.1 G/DL (12.0-16.0) L Hematocrit 34.7 % (37.0-47.0) L Mean Corpuscular Volume 92 FL (80-99) Mean Corpuscular Hemoglobin 29.2 PG (27.0-31.0) Mean Corpuscular Hemoglobin Concent 31.9 G/DL (32.0-36.0) L Red Cell Distribution Width 12.6 % (11.6-14.8) Platelet Count 280 K/UL (150-450) Mean Platelet Volume 5.3 FL (6.5-10.1) L Neutrophils (%) (Auto) 63.1 % (45.0-75.0) Lymphocytes (%) (Auto) 25.5 % (20.0-45.0) Monocytes (%) (Auto) 7.8 % (1.0-10.0) Eosinophils (%) (Auto) 2.1 % (0.0-3.0) Basophils (%) (Auto) 1.5 % (0.0-2.0) Sodium Level 140 MMOL/L (136-145) Potassium Level 3.9 MMOL/L (3.5-5.1) Chloride Level 104 MMOL/L (98-107) Carbon Dioxide Level 29 MMOL/L (21-32) Anion Gap 7 mmol/L (5-15) Blood Urea Nitrogen 21 mg/dL (7-18) H Creatinine 0.8 MG/DL (0.55-1.30) Estimat Glomerular Filtration Rate > 60 mL/min (>60) Glucose Level 156 MG/DL (74-106) H Calcium Level 9.0 MG/DL (8.5-10.1) Phosphorus Level 3.5 MG/DL (2.5-4.9) Magnesium Level 1.7 MG/DL (1.8-2.4) L Total Bilirubin 0.2 MG/DL (0.2-1.0) Aspartate Amino Transf (AST/SGOT) 12 U/L (15-37) L Alanine Aminotransferase (ALT/SGPT) 22 U/L (12-78) Alkaline Phosphatase 152 U/L (46-116) H Total Protein 7.1 G/DL (6.4-8.2) Albumin 3.0 G/DL (3.4-5.0) L Globulin 4.1 g/dL Albumin/Globulin Ratio 0.7 (1.0-2.7) L Current Medications Medications (Trade) Dose Ordered Sig/Danni Route PRN Reason Start Time Stop Time Status Last Admin Dose Admin Acetaminophen (Tylenol) 650 mg Q4H PRN ORAL FEVER (temp>100.5F) 01/16/18 02:00 02/12/18 13:59 Amitriptyline HCl (Elavil) 25 mg BEDTIME ORAL 01/16/18 21:00 02/13/18 20:59 01/18/18 20:30 Amlodipine Besylate (Norvasc) 10 mg DAILY ORAL 01/16/18 09:00 02/13/18 08:59 01/19/18 08:11 Cephalexin (Keflex) 500 mg Q12HR ORAL 01/16/18 09:00 01/22/18 20:59 01/19/18 08:08 Chlorhexidine Gluconate (Margot-Hex 2%) 1 applic DAILY@1999 TOPIC 01/16/18 20:00 02/12/18 19:59 01/18/18 20:29 Diazepam (Valium) 5 mg Q4H PRN ORAL muscle spasm 01/17/18 11:30 01/24/18 11:29 01/19/18 02:59 Diphenhydramine HCl (Benadryl) 50 mg Q6H PRN ORAL Itching 01/16/18 04:00 02/12/18 15:59 01/19/18 02:59 Duloxetine HCl (Cymbalta) 60 mg DAILY ORAL 01/18/18 09:00 02/17/18 08:59 01/19/18 08:08 Gabapentin (Neurontin) 300 mg THREE TIMES A DAY ORAL 01/16/18 09:00 02/12/18 15:29 01/19/18 08:08 Heparin Sodium (Porcine) (Heparin 5000 units/ml) 5,000 units EVERY 12 HOURS SUBQ 01/16/18 09:00 02/12/18 20:59 01/19/18 08:10 Hydralazine HCl (Apresoline) 25 mg Q6HR ORAL 01/18/18 18:00 02/17/18 17:59 01/19/18 05:09 Hydromorphone HCl (Dilaudid) 2 mg Q4H PRN IVP severe pain 01/16/18 00:00 01/20/18 15:59 01/19/18 10:15 Lisinopril (Prinivil) 20 mg DAILY ORAL 01/16/18 09:00 02/13/18 12:44 01/19/18 08:11 Lorazepam (Ativan 2mg/ml 1ml) 2 mg Q4H PRN IV For Anxiety 01/16/18 12:00 01/23/18 11:59 01/19/18 10:34 Magnesium Sulfate 100 ml @ 100 mls/hr Q1H IVPB 01/19/18 10:00 01/19/18 11:59 01/19/18 10:14 Morphine Sulfate (MS Contin) 15 mg Q8H ORAL 01/16/18 00:00 01/20/18 15:59 01/19/18 08:07 Nitroglycerin (Ntg) 0.4 mg Q5M PRN SL Prn Chest Pain 01/15/18 22:45 02/12/18 13:59 Ondansetron HCl (Zofran) 4 mg Q6H PRN IVP Nausea & Vomiting 01/16/18 02:00 02/12/18 13:59 Pantoprazole (Protonix) 40 mg DAILY ORAL 01/16/18 09:00 02/13/18 08:59 01/19/18 08:08 Polyethylene Glycol (Miralax) 17 gm DAILYPRN PRN ORAL Constipation 01/16/18 14:00 02/12/18 13:59 Temazepam (Restoril) 15 mg HSPRN PRN ORAL Insomnia 01/16/18 21:00 01/20/18 20:59 Balbir Pederson MD Jan 19, 2018 11:06
[2018-01-19 12:00] VITALS: BP 140/90
[2018-01-19 12:04] VITALS: BP 140/90
--- NOTE | 2018-01-19 13:09 | Pulmonology Progress Note ---
Assessment/Plan Problems: (1) Accelerated hypertension (2) Urinary tract infection (3) Opioid dependence (4) Anxiety (5) Chronic pain syndrome Assessment/Plan BP much better on lisinopril add hydralazine f/u urine cultures on Ceftriaxone dc planning Subjective ROS Limited/Unobtainable: No Constitutional: Reports: no symptoms HEENT: Repors: no symptoms Respiratory: Reports: no symptoms Allergies: Coded Allergies: IRON (Verified Allergy, Unknown, Rash, 08/09/17) had nausea, vomiting and rashes METHADONE (Verified Allergy, Unknown, 06/04/17) MORPHINE (Verified Allergy, Unknown, 01/13/18) PREGABALIN (Verified Allergy, Unknown, 06/04/17) Objective Last 24 Hour Vital Signs Date Time Temp Pulse Resp B/P (MAP) Pulse Ox O2 Delivery O2 Flow Rate FiO2 01/19/18 12:04 140/90 01/19/18 12:00 98.2 103 16 140/90 (107) 99 98.2 01/19/18 10:45 97.7 01/19/18 10:15 97.7 01/19/18 09:51 Room Air 01/19/18 08:37 97.7 01/19/18 08:14 97.7 100 16 134/75 (94) 99 97.7 01/19/18 08:11 134/75 01/19/18 08:11 100 134/75 01/19/18 08:07 97.7 01/19/18 05:09 168/81 01/19/18 04:00 97.7 112 16 149/92 (111) 99 97.7 01/19/18 00:00 97.1 102 19 149/78 (101) 97 97.1 01/18/18 23:40 149/78 01/18/18 21:00 Room Air 01/18/18 20:57 87 18 Room Air 21 01/18/18 20:00 98.1 95 18 157/74 (101) 100 98.1 01/18/18 17:39 150/88 01/18/18 16:32 97.4 01/18/18 16:00 98.0 99 20 136/63 (87) 98 98.0 01/18/18 15:01 97.4 Intake and Output 01/18/18 01/19/18 19:00 07:00 Intake Total 1100 ml Balance 1100 ml Intake Oral 1100 ml # Voids 4 3 General Appearance: WD/WN HEENT: normocephalic, atraumatic Respiratory/Chest: chest wall non-tender, lungs clear Breasts: no masses Cardiovascular: normal peripheral pulses, normal rate Abdomen: normal bowel sounds, no organomegaly Genitourinary: normal external genitalia Extremities: no clubbing Skin: no rash Laboratory Tests 01/19/18 05:15: White Blood Count 7.5, Red Blood Count 3.80L, Hemoglobin 11.1L, Hematocrit 34.7L , Mean Corpuscular Volume 92, Mean Corpuscular Hemoglobin 29.2, Mean Corpuscular Hemoglobin Concent 31.9L, Red Cell Distribution Width 12.6, Platelet Count 280, Mean Platelet Volume 5.3L, Neutrophils (%) (Auto) 63.1, Lymphocytes (%) (Auto) 25.5, Monocytes (%) (Auto) 7.8, Eosinophils (%) (Auto) 2.1, Basophils (%) (Auto) 1.5, Sodium Level 140, Potassium Level 3.9, Chloride Level 104, Carbon Dioxide Level 29, Anion Gap 7, Blood Urea Nitrogen 21H, Creatinine 0.8, Estimat Glomerular Filtration Rate > 60, Glucose Level 156H, Calcium Level 9.0, Phosphorus Level 3.5, Magnesium Level 1.7L, Total Bilirubin 0.2, Aspartate Amino Transf (AST/SGOT) 12L, Alanine Aminotransferase (ALT/SGPT) 22, Alkaline Phosphatase 152H, Total Protein 7.1, Albumin 3.0L, Globulin 4.1, Albumin/Globulin Ratio 0.7L Current Medications Medications (Trade) Dose Ordered Sig/Danni Route PRN Reason Start Time Stop Time Status Last Admin Dose Admin Acetaminophen (Tylenol) 650 mg Q4H PRN ORAL FEVER (temp>100.5F) 01/16/18 02:00 02/12/18 13:59 Amitriptyline HCl (Elavil) 25 mg BEDTIME ORAL 01/16/18 21:00 02/13/18 20:59 01/18/18 20:30 Amlodipine Besylate (Norvasc) 10 mg DAILY ORAL 01/16/18 09:00 02/13/18 08:59 01/19/18 08:11 Cephalexin (Keflex) 500 mg Q12HR ORAL 01/16/18 09:00 01/22/18 20:59 01/19/18 08:08 Chlorhexidine Gluconate (Margot-Hex 2%) 1 applic DAILY@2000 TOPIC 01/16/18 20:00 02/12/18 19:59 01/18/18 20:29 Diazepam (Valium) 5 mg Q4H PRN ORAL muscle spasm 01/17/18 11:30 01/24/18 11:29 01/19/18 02:59 Diphenhydramine HCl (Benadryl) 50 mg Q6H PRN ORAL Itching 01/16/18 04:00 02/12/18 15:59 01/19/18 02:59 Duloxetine HCl (Cymbalta) 60 mg DAILY ORAL 01/18/18 09:00 02/17/18 08:59 01/19/18 08:08 Gabapentin (Neurontin) 300 mg THREE TIMES A DAY ORAL 01/16/18 09:00 02/12/18 15:29 01/19/18 08:08 Heparin Sodium (Porcine) (Heparin 5000 units/ml) 5,000 units EVERY 12 HOURS SUBQ 01/16/18 09:00 02/12/18 20:59 01/19/18 08:10 Hydralazine HCl (Apresoline) 25 mg Q6HR ORAL 01/18/18 18:00 02/17/18 17:59 01/19/18 12:04 Hydromorphone HCl (Dilaudid) 2 mg Q4H PRN IVP severe pain 01/16/18 00:00 01/20/18 15:59 01/19/18 10:15 Lisinopril (Prinivil) 20 mg DAILY ORAL 01/16/18 09:00 02/13/18 12:44 01/19/18 08:11 Lorazepam (Ativan 2mg/ml 1ml) 2 mg Q4H PRN IV For Anxiety 01/16/18 12:00 01/23/18 11:59 01/19/18 10:34 Morphine Sulfate (MS Contin) 15 mg Q8H ORAL 01/16/18 00:00 01/20/18 15:59 01/19/18 08:07 Nitroglycerin (Ntg) 0.4 mg Q5M PRN SL Prn Chest Pain 01/15/18 22:45 02/12/18 13:59 Ondansetron HCl (Zofran) 4 mg Q6H PRN IVP Nausea & Vomiting 01/16/18 02:00 02/12/18 13:59 Pantoprazole (Protonix) 40 mg DAILY ORAL 01/16/18 09:00 02/13/18 08:59 01/19/18 08:08 Polyethylene Glycol (Miralax) 17 gm DAILYPRN PRN ORAL Constipation 01/16/18 14:00 02/12/18 13:59 Temazepam (Restoril) 15 mg HSPRN PRN ORAL Insomnia 01/16/18 21:00 01/20/18 20:59 Adam Tom MD Jan 19, 2018 13:09
--- NOTE | 2018-01-19 14:06 | General Progress Note ---
Assessment/Plan Problem List: (1) Anxiety ICD Codes: F41.9 - Anxiety disorder, unspecified SNOMED: 60546227 (2) Urinary tract infection ICD Codes: N39.0 - Urinary tract infection, site not specified SNOMED: 34131104 (3) Intractable back pain ICD Codes: M54.9 - Dorsalgia, unspecified SNOMED: 778371524 (4) Chronic pain syndrome ICD Codes: G89.4 - Chronic pain syndrome SNOMED: 628953190 (5) Muscle spasm ICD Codes: M62.838 - Other muscle spasm SNOMED: 57480813, 32456179 (6) Accelerated hypertension ICD Codes: I10 - Essential (primary) hypertension SNOMED: 67564409 Status: stable, progressing Assessment/Plan ot pt diet pain bp control dc to [facility] Subjective Constitutional: Reports: weakness Allergies: Coded Allergies: IRON (Verified Allergy, Unknown, Rash, 08/09/17) had nausea, vomiting and rashes METHADONE (Verified Allergy, Unknown, 06/04/17) MORPHINE (Verified Allergy, Unknown, 01/13/18) PREGABALIN (Verified Allergy, Unknown, 06/04/17) All Systems: reviewed and negative except above Subjective anxious c/o back and leg pain Objective Last 24 Hour Vital Signs Date Time Temp Pulse Resp B/P (MAP) Pulse Ox O2 Delivery O2 Flow Rate FiO2 01/19/18 13:37 98.2 01/19/18 12:04 140/90 01/19/18 12:00 98.2 103 16 140/90 (107) 99 98.2 01/19/18 10:45 97.7 01/19/18 10:15 97.7 01/19/18 09:51 Room Air 01/19/18 08:37 97.7 01/19/18 08:14 97.7 100 16 134/75 (94) 99 97.7 01/19/18 08:11 134/75 01/19/18 08:11 100 134/75 01/19/18 08:07 97.7 01/19/18 05:09 168/81 01/19/18 04:00 97.7 112 16 149/92 (111) 99 97.7 01/19/18 00:00 97.1 102 19 149/78 (101) 97 97.1 01/18/18 23:40 149/78 9/11/18 21:00 Room Air 01/18/18 20:57 87 18 Room Air 21 01/18/18 20:00 98.1 95 18 157/74 (101) 100 98.1 01/18/18 17:39 150/88 01/18/18 16:32 97.4 01/18/18 16:00 98.0 99 20 136/63 (87) 98 98.0 01/18/18 15:01 97.4 Intake and Output 01/18/18 01/19/18 19:00 07:00 Intake Total 1100 ml Balance 1100 ml Intake Oral 1100 ml # Voids 4 3 Laboratory Tests 01/19/18 05:15: White Blood Count 7.5, Red Blood Count 3.80L, Hemoglobin 11.1L, Hematocrit 34.7L , Mean Corpuscular Volume 92, Mean Corpuscular Hemoglobin 29.2, Mean Corpuscular Hemoglobin Concent 31.9L, Red Cell Distribution Width 12.6, Platelet Count 280, Mean Platelet Volume 5.3L, Neutrophils (%) (Auto) 63.1, Lymphocytes (%) (Auto) 25.5, Monocytes (%) (Auto) 7.8, Eosinophils (%) (Auto) 2.1, Basophils (%) (Auto) 1.5, Sodium Level 140, Potassium Level 3.9, Chloride Level 104, Carbon Dioxide Level 29, Anion Gap 7, Blood Urea Nitrogen 21H, Creatinine 0.8, Estimat Glomerular Filtration Rate > 60, Glucose Level 156H, Calcium Level 9.0, Phosphorus Level 3.5, Magnesium Level 1.7L, Total Bilirubin 0.2, Aspartate Amino Transf (AST/SGOT) 12L, Alanine Aminotransferase (ALT/SGPT) 22, Alkaline Phosphatase 152H, Total Protein 7.1, Albumin 3.0L, Globulin 4.1, Albumin/Globulin Ratio 0.7L Height (Feet): 5 Height (Inches): 0.00 Weight (Pounds): 179 General Appearance: lethargic EENT: normal ENT inspection Neck: normal alignment Cardiovascular: normal peripheral pulses, normal rate, regular rhythm Respiratory/Chest: chest wall non-tender, lungs clear, normal breath sounds Abdomen: normal bowel sounds, non tender, soft Extremities: normal inspection Edema: no edema noted Arm (L), no edema noted Arm (R), no edema noted Leg (L), no edema noted Leg (R), no edema noted Pedal (L), no edema noted Pedal (R), no edema noted Generalized Neurologic: responsive, motor weakness Skin: normal pigmentation, warm/dry Ernesto Magallon DO Jan 19, 2018 14:06
[2018-01-19] MEDS ORDERED: CEPHALEXIN500 MG ORAL (14:47)
[2018-01-19] MEDS ORDERED: HYDROMORPHO2 MG/1 M8 IV (14:48)
[2018-01-19] MEDS ORDERED: HYDRALAZINE HCL25 M1 ORAL (14:48)
[2018-01-19] MEDS ORDERED: HEPARIN SO5000 UNIT2 SUBQ (14:48)
[2018-01-19] MEDS ORDERED: ATIVAN2 MG/1 ML IV (14:49)
[2018-01-19] MEDS ORDERED: LISINOPRIL20 MG ORAL (14:49)
[2018-01-19] MEDS ORDERED: MS CONTIN ORAL (14:50)
[2018-01-19] MEDS ORDERED: NITRO ORAL (14:50)
[2018-01-19] MEDS ORDERED: PROTONIX40 MG ORAL (14:51)
[2018-01-19] MEDS ORDERED: RESTORIL15 MG ORAL (14:51)
[2018-01-19] MEDS ORDERED: MIRALAX17 G2 ORAL (14:51)
[2018-01-19] MEDS ORDERED: ZOFRAN 4 MG4 MG/2 ML IV (14:51)
[2018-01-19] MEDS ORDERED: VALIUM2 MG ORAL (14:51)
[2018-01-19] MEDS ORDERED: BENADRYL25 MG ORAL (14:52)
--- NOTE | 2018-01-20 01:30 | Consultation ---
DATE OF CONSULTATION: 01/19/2018 NOTE: POOR AUDIO CONSULTING PHYSICIAN: Amanda Crews M.D. HISTORY: The patient is a 52-year-old female patient with hypertension. This patient has hypertension. She also has a lot of mood lability, agitation, and chronic pain. Her pain is mood lability and agitation. She states nobody is treating her pain properly and she is very very angry, frustrated, . MENTAL STATUS EXAMINATION: The patient is a 52-year-old female. Her appearance is disheveled. Attitude, irritable and agitated. Affect, guarded and restricted. Intellect poor. Mood depressed and anxious. Motor activity, psychomotor agitation. Attention span is poor. Oriented x2. Speech is pressured. Thought process disorganized and illogical. Thought content, auditory hallucinations and paranoid delusions. Insight and judgement is poor. DIAGNOSIS: Major depressive disorder, moderate to severe without psychosis. PLAN: Treat with 50 mg daily, Neurontin 300 mg three times a day. A 20 minutes of cognitive behavioral therapy was provided this morning. We identified automatic negative thoughts and helped her to convert them to more positive thoughts to reduce depression and suicidality. Chart reviewed. Discussed with staff. Seen and assessed in her room. A 20 minutes of cognitive behavioral therapy provided. Amanda Crews M.D. DR: JALEEL JOB#: [id number] CC:
--- NOTE | 2018-01-20 10:18 | Discharge Summary ---
Discharge Summary Discharge Summary _ DATE OF ADMISSION: 01/13/2018 DATE OF DISCHARGE: 01/19/2018 CONSULTANTS: Dr. Amanda Pederson BRIEF HOSPITAL COURSE: Patient is a 52-year-old female, who lives at home, presented to ED for complaints of high blood pressure. Blood pressure had been difficult to manage. She took her usual medications including losartan, amlodipine, metoprolol. She denied chest pain. Denied headache. She has medical history significant for cauda equina syndrome, failed back surgery syndrome, chronic pain syndrome, opioid dependency, lumbar degenerative disease disease, anemia, hypertension, major depressive disorder and anxiety. On evaluation at ED, blood pressure was elevated. Highest blood pressure reading was 192/105 . Troponin was negative. She was given IV labetalol and was admitted to telemetry for hypertensive urgency. Chest x-ray showed no acute findings. She was sinus rhythm on the monitor. There were no acute ischemic changes seen. Troponins were monitored and were negative. She had an echocardiogram done that showed preserved ejection fraction of 55-60% and right ventricular systolic pressure of 33, there was evidence of moderate aortic regurgitation. Urine showed 10-15 WBC, 3+ leukocyte esterase, positive nitrite. Urine culture with growth of Escherichia coli. She was given IV ceftriaxone. She was seen by infectious disease specialist. Urine culture was pansensitive. Antibiotic was changed to po Keflex. She was given pain management. She was continued on Neurontin, Dilaudid and morphine. She complained of frequent muscle spasms. Soma was discontinued. She was given Valium prn muscle spasms. She was also started on Elavil. He had mood lability with agitation and chronic pain. She was diagnosed with major depressive disorder, moderate, recurrent without psychotic features. She was treated with Neurontin 10 mg 3 times a day. She was given cognitive behavioral therapy. Cymbalta dose was increased. She continued to have elevated blood pressure. Hydralazine dose was increased to every 6 hours. She was given amlodipine, and lisinopril. He eventually completed antibiotic treatment and was observed off antibiotics. She was given physical therapy and occupational therapy. BP better. She had better pain control. Access the Port-A-Cath was discontinued. She was eventually transferred to [facility] acute rehab. FINAL DIAGNOSES: Hypertensive urgency Urinary tract infection Escherichia coli Anxiety Chronic pain syndrome Muscle spasms Urinary tract infection Opioid dependence Acute on chronic pain syndrome Major depressive disorder Lumbar degenerative disc disease/spondylosis/herniated disc with failed back surgery syndrome Cauda equina syndrome Blindness Hypokalemia DISPOSITION: Patient was transferred to [facility]. DISCHARGE MEDICATIONS: Refer to Discharge Medication List. I have been assigned to dictate discharge summary on this account, and I was not involved in the patient's management. Alejandra Merchant NP Jan 20, 2018 10:18
== END 2018-01-19 15:20 | DRG 304 ==
LOC: EMR 12:45 → EDBEDREQ 13:47 → 2E 14:08 → EDBEDREQ 15:32 → 4E 01-15 22:29
DX: I16.0 Hypertensive urgency (principal); G03.9 Meningitis, unspecified; N39.0 Urinary tract infection, site not specified; G83.4 Cauda equina syndrome; F11.20 Opioid dependence, uncomplicated; I10 Essential (primary) hypertension; M51.36 Other intervertebral disc degeneration, lumbar region; F32.9 Major depressive disorder, single episode, unspecified; F41.9 Anxiety disorder, unspecified; B96.20 Unspecified Escherichia coli [E. coli] as the cause of diseases classified elsewhere; M62.838 Other muscle spasm; M51.26 Other intervertebral disc displacement, lumbar region; Z88.6 Allergy status to analgesic agent; Z88.8 Allergy status to other drugs, medicaments and biological substances; Z98.890 Other specified postprocedural states; H54.7 Unspecified visual loss; I35.1 Nonrheumatic aortic (valve) insufficiency; E87.6 Hypokalemia; Z90.710 Acquired absence of both cervix and uterus
CPT/HCPCS: 36415; 71045; 80048; 80053; 80061; 81001; 83735; 83880; 84100; 84443; 84484; 85025; 85610; 85730; 86140; 87086; 87181; 93005; 93306; 94664; 96365; 96375; 99285; J8499

== ENCOUNTER 2018-04-13 14:19 | Emergency (ER) | payer MEDICARE, MEDICAID ==
[~2018-04-13] VITALS: Ht 160 cm; Wt 77.1 kg
[~2018-04-13 14:19] MED LIST changes: +ATIVAN2 MG/1 ML IV; +BENADRYL25 MG ORAL; +HEPARIN SO5000 UNIT2 SUBQ; +HYDROMORPHO2 MG/1 M8 IV; +LISINOPRIL20 MG ORAL; +MIRALAX17 G2 ORAL; +MS CONTIN ORAL; +NITRO ORAL; +PROTONIX40 MG ORAL; +RESTORIL15 MG ORAL; +VALIUM2 MG ORAL; +ZOFRAN 4 MG4 MG/2 ML IV
[2018-04-13 14:43] VITALS: BP 144/88
[2018-04-13] MEDS ORDERED: METHOCARBAMOL750 MG ORAL (15:13)
[2018-04-13] MEDS ORDERED: LOSARTAN POTASS50 MG ORAL (15:13)
[2018-04-13] MEDS ORDERED: METOPROLOL SUCC50 MG ORAL (15:13)
[2018-04-13] MEDS ORDERED: KADIAN20 M1 PO (15:13)
[2018-04-13] MEDS ORDERED: REQUIP0.5 MG ORAL (15:13)
[2018-04-13] MEDS ORDERED: HYDROMORPHONE HC4 M1 PO (15:13)
--- NOTE | 2018-04-13 15:13 | Emergency Room Report ---
History of Present Illness General Chief Complaint: Skin Rash/Abscess Source: Patient Present Illness HPI 53 YO Female presents to the ED c/o 01/17 in severity burning rash x 2 days. pt. just finished course of antibiotics amoxicillin and Cipro, and began taking Keflex today. pt. had recent back surgery (end of February) which became infected. Pt. denies fevers, chills or swollen tender lymph nodes. Denies lesions/rashes elsewhere on the body. Denies new medications or body washes or creams. Denies swelling of the lips, tongue , throat or airway. Denies wheezing , or shortness of breath. Denies recent travel, recent illness or ill contacts. Denies blisters, oral lesions, or sloughing of the skin. Allergies: Coded Allergies: IRON (Verified Allergy, Unknown, Rash, 08/09/17) had nausea, vomiting and rashes METHADONE (Verified Allergy, Unknown, 06/04/17) MORPHINE (Verified Allergy, Unknown, 01/13/18) PREGABALIN (Verified Allergy, Unknown, 06/04/17) Patient History Past Medical History: see triage record Past Surgical History: none Pertinent Family History: none Now: No Reviewed Nursing Documentation: PMH: Agreed; PSxH: Agreed Nursing Documentation-PMH Past Medical History: No History, Except For Hx Cardiac Problems: No Hx Hypertension: Yes Hx Cancer: No Hx Gastrointestinal Problems: Yes Hx Neurological Problems: No Hx Spinal Cord Injury: Yes Hx Numbness: Yes Hx Neurologic Surgery: Yes - 2009 Spinal surgery Review of Systems All Other Systems: negative except mentioned in HPI Physical Exam Vital Signs Date Time Temp Pulse Resp B/P (MAP) Pulse Ox O2 Delivery O2 Flow Rate FiO2 04/13/18 14:31 98.8 94 17 144/88 97 Room Air Sp02 EP Interpretation: reviewed, normal General Appearance: no apparent distress, alert, GCS 15, non-toxic Head: normocephalic, atraumatic Eyes: bilateral eye normal inspection, bilateral eye PERRL ENT: hearing grossly normal, normal voice Neck: full range of motion Respiratory: lungs clear, normal breath sounds, no wheezing, speaking full sentences Cardiovascular #1: regular rate, rhythm, no edema Gastrointestinal: non tender, soft Rectal: deferred Genitourinary: normal inspection, no CVA tenderness Musculoskeletal: back normal, gait/station normal, normal range of motion, tender - TTP right side- surgical dressing. There is no erythema or warmth. Neurologic: alert, oriented x3, responsive, motor strength/tone normal, sensory intact, speech normal, grossly normal Psychiatric: judgement/insight normal Skin: normal color, no rash, warm/dry, well hydrated, rash - hyperpigmented plaques under both breasts, diffuse across the upper back, scant on anterior chest. and up back of neck. there are no blisters or vessicle, light sheen over plaques, defined boarders, some dryness as well. Lymphatic: no adenopathy Medical Decision Making PA Attestation Dr. Saldana is my supervising Physician whom patient management has been discussed with. Diagnostic Impression: Primary Impression: Rash and other nonspecific skin eruption ER Course 53 YO Female presents to the ED c/o 01/17 in severity burning rash x 2 days. pt. just finished course of antibiotics amoxicillin and Cipro, and began taking Keflex today. pt. had recent back surgery (end of February) which became infected. Pt. denies fevers, chills or swollen tender lymph nodes. Denies lesions/rashes elsewhere on the body. Denies new medications or body washes or creams. Denies swelling of the lips, tongue , throat or airway. Denies wheezing , or shortness of breath. Denies recent travel, recent illness or ill contacts. Denies blisters, oral lesions, or sloughing of the skin. Pt. denies hx of DM. Ddx considered but are not limited to cellulitis, scabies, shingles, varicella, dermatitis, urticaria, eczema, tinea, viral exanthem, SJS Vital signs: are WNL, pt. is afebrile H&PE are most consistent with ORDERS: none required at this time, the diagnosis is clinical ED INTERVENTIONS: -Benadryl IM --Patient requests to speak to me again after I ordered Benadryl and states that she has had this rash in the past and what worked before was Benadryl and Dilaudid. I discussed with patient that I am unaware of any rash condition that requires a combination of Morphine and Benadryl for its treatment , I explained to her that she must had been given morphine, developed a rash, and then was administered benadryl. I d/w patient that she will be treated with the standard of care which is some Benadryl +/- Steroid. After several minutes patient requests to speak with provider again regarding symptoms of muscle spasms and stating that she takes Ativan for this condition. I discussed with patient that I will treat her with some Robaxin however not with a controlled substance such as Ativan because she has a history of benzodiazepine and opioid dependence. I also discussed with patient that I looked up her cures record and I did not see that she is prescribed Ativan. Pt. is requesting again requesting Dilaudid for her pain -- I ordered Toradol for her. pt. became upset and declined interventions. d/w pt. that as muscle spasms and chronic back pain are chronic symptoms for her this needs to be addressed by her pain management doctor. d/w pt. she has open rx's for multiple substances and polypharmacy is dangerous. -I do not identify an emergent condition at this time. With current presentation , pt. is stable for close outpatient follow up and conservative treatment. D/ w pt. to return promptly to ED with worsening or new symptoms.- Pt. verbalizes' understanding and agreement with proposed treatment plan. DISCHARGE: At this time pt. is stable for d/c to home. Will provide printed patient care instructions, and any necessary prescriptions. Care plan and follow up instructions have been discussed with the patient prior to discharge. Pt. is refusing to sign discharge paperwork as she is upset that she was declined. Last Vital Signs Date Time Temp Pulse Resp B/P (MAP) Pulse Ox O2 Delivery O2 Flow Rate FiO2 04/13/18 14:43 98.8 17 144/88 97 Room Air 04/13/18 14:31 94 Disposition: HOME, SELF-CARE Condition: Stable Scripts Nystatin* (NYSTATIN*) 15 Gm Cream..g. 1 APPLIC TOPIC THREE TIMES A DAY, #15 GM 1 Refill Prov: Nellie Palafox 04/13/18 Triamcinolone Acet (Triamcinolone Acetonide) 15 Gm Cream..g. 1 APPLIC TP BID, #15 GM 1 Refill Prov: Nellie Palafox 04/13/18 Diphenhydramine Hcl* (BENADRYL*) 25 Mg Capsule 25-50 MG ORAL Q6H PRN for Itching, #30 CAP Prov: Nellie Palafox 04/13/18 Referrals: Ernesto Magallon DO (PCP) Patient Instructions: Drug Rash, Rash Additional Instructions: Take medications as directed. Follow up with a Primary Care Provider in 3-5 days, even if your symptoms have resolved. --Please review list of primary care clinics, if you do not already have a primary care provider Return sooner to ED if new symptoms occur, or current symptoms become worse. Do not drink alcohol, drive, or operate heavy machinery while taking Benadryl as this may cause drowsiness. - Please note that this Emergency Department Report was dictated using [employer] machine operator technology software, occasionally this can lead to erroneous entry secondary to interpretation by the dictation equipment. Nellie Palafox Apr 13, 2018 15:13
[2018-04-13] MEDS: DiphenhydrAMINE 50mg/ml Inj IM ONE ×2 (15:14→15:40)
[2018-04-13] MEDS ORDERED: BENADRYL25 MG ORAL (15:19)
[2018-04-13] MEDS ORDERED: NYSTATIN15 GM TOPIC (15:19)
[2018-04-13] MEDS ORDERED: KENALOG 0.5% CR15 GM TP (15:19)
[2018-04-13] MEDS: Methocarbamol 750mg tab ORAL ONE ×2 (15:29→15:38)
[2018-04-13] MEDS ORDERED: Ketorolac 30mg Inj IM ONE (15:30)
[2018-04-13 15:41] VITALS: BP 132/78
== END 2018-04-13 15:41 | disposition home or self-care (01) ==
LOC: EMR 14:45
DX: R21 Rash and other nonspecific skin eruption (principal); I10 Essential (primary) hypertension; Z88.5 Allergy status to narcotic agent; Z88.8 Allergy status to other drugs, medicaments and biological substances
CPT/HCPCS: 96372; 99283; J1200

== ENCOUNTER 2018-04-14 11:09 | Inpatient (IN) | payer MEDICARE, MEDICAID ==
[~2018-04-14] VITALS: Ht 160 cm; Wt 77.1 kg
[~2018-04-14 11:09] MED LIST changes: +HYDROMORPHONE HC4 M1 PO; +KADIAN20 M1 PO; +KENALOG 0.5% CR15 GM TP; +METHOCARBAMOL750 MG ORAL; +METOPROLOL SUCC50 MG ORAL; +NYSTATIN15 GM TOPIC; +REQUIP0.5 MG ORAL
[2018-04-14 11:14] VITALS: BP 145/84
[2018-04-14] MEDS ORDERED: DiphenhydrAMINE 50mg/ml Inj IVP ONE (12:15)
[2018-04-14] MEDS ORDERED: Solu-MEDROL 125mg Inj IVP ONE (12:15)
--- NOTE | 2018-04-14 12:15 | Emergency Room Report ---
History of Present Illness General Chief Complaint: Skin Rash/Abscess Present Illness HPI Mrs. Carmona is a 53 yo female who presents with diffuse rash on chest, neck back. 4 days of rash which began under her breast. Seen yesterday in ED. No improvement with benadryl. No fever. Currently not taking antibiotics. Had infection after back surgery at OSH one month ago. PCP Dr. Ernesto Magallon. No dyspnea. No lip swelling. No wheezing. Allergies: Coded Allergies: IRON (Verified Allergy, Unknown, Rash, 08/09/17) had nausea, vomiting and rashes METHADONE (Verified Allergy, Unknown, 06/04/17) MORPHINE (Verified Allergy, Unknown, 01/13/18) PREGABALIN (Verified Allergy, Unknown, 06/04/17) Patient History Past Medical History: see triage record, old chart reviewed Past Surgical History: other - old chart reviewed Pertinent Family History: other - not pertinent to today's exam Social History: Denies: smoking Now: No Nursing Documentation-PMH Hx Cardiac Problems: Yes Hx Hypertension: No Hx Pacemaker: No Hx Asthma: No Hx COPD: No Hx Diabetes: No Hx Cancer: No Hx Gastrointestinal Problems: No Hx Dialysis: No History Of Psychiatric Problem: No Hx Cerebrovascular Accident: No Hx Seizures: No Hx Spinal Cord Injury: Yes Hx Numbness: Yes Hx Neurologic Surgery: Yes - 2009 Spinal surgery Review of Systems Constitutional: Denies: fever, malaise Respiratory: Denies: cough Cardiovascular: Denies: chest pain Gastrointestinal: Denies: abdominal pain All Other Systems: negative except mentioned in HPI Physical Exam Vital Signs Date Time Temp Pulse Resp B/P (MAP) Pulse Ox O2 Delivery O2 Flow Rate FiO2 04/14/18 11:14 98.4 99 18 145/84 99 Room Air Sp02 EP Interpretation: reviewed, normal General Appearance: no apparent distress, alert, GCS 15, non-toxic Head: normocephalic, atraumatic Eyes: bilateral eye normal inspection ENT: hearing grossly normal, normal pharynx, no angioedema, normal voice Neck: full range of motion, supple/symm/no masses Respiratory: chest non-tender, lungs clear, normal breath sounds, no rhonchi, no respiratory distress, no retraction, no accessory muscle use, speaking full sentences Cardiovascular #1: regular rate, rhythm, no edema Cardiovascular #2: 2+ carotid (R), 2+ carotid (L), 2+ radial (R), 2+ radial (L) , 2+ dorsalis pedis (R), 2+ dorsalis pedis (L) Gastrointestinal: normal bowel sounds, non tender, soft, non-distended, no guarding, no rebound Genitourinary: normal inspection Musculoskeletal: back normal, gait/station normal, normal range of motion, non- tender, calf tenderness Neurologic: alert, oriented x3, responsive, motor strength/tone normal, sensory intact, speech normal Psychiatric: judgement/insight normal, memory normal, mood/affect normal, no suicidal/homicidal ideation Reflexes: 3+ bicep (R), 3+ bicep (L), 3+ tricep (R), 3+ tricep (L), 3+ knee (R) , 3+ knee (L) Skin: warm/dry, well hydrated, other - hyperpigmented patches on both breasts, excoriated skin upper back and trapezius region Lymphatic: no adenopathy Medical Decision Making Diagnostic Impression: Primary Impression: Dermatitis Additional Impression: Hypokalemia ER Course Mrs. Carmona presents with rash on chest and back for 4 days. ?drug rash ? contact dermatitis no involvement of mucosa, no indication of cellulitis PCP Dr. Magallon will admit for further treatment and evaluation by infectious disease Labs Test 04/14/18 12:45 White Blood Count 6.0 K/UL (4.8-10.8) Red Blood Count 3.55 M/UL (4.20-5.40) Hemoglobin 9.7 G/DL (12.0-16.0) Hematocrit 30.6 % (37.0-47.0) Mean Corpuscular Volume 86 FL (80-99) Mean Corpuscular Hemoglobin 27.4 PG (27.0-31.0) Mean Corpuscular Hemoglobin Concent 31.7 G/DL (32.0-36.0) Red Cell Distribution Width 12.8 % (11.6-14.8) Platelet Count 377 K/UL (150-450) Mean Platelet Volume 4.8 FL (6.5-10.1) Neutrophils (%) (Auto) 62.3 % (45.0-75.0) Lymphocytes (%) (Auto) 29.5 % (20.0-45.0) Monocytes (%) (Auto) 6.0 % (1.0-10.0) Eosinophils (%) (Auto) 0.7 % (0.0-3.0) Basophils (%) (Auto) 1.4 % (0.0-2.0) Urine Color Yellow Urine Appearance Slightly cloudy Urine pH 5 (4.5-8.0) Urine Specific [place] 1.020 (1.005-1.035) Urine Protein 2+ (NEGATIVE) Urine Glucose (UA) Negative (NEGATIVE) Urine Ketones Negative (NEGATIVE) Urine Blood 2+ (NEGATIVE) Urine Nitrite Negative (NEGATIVE) Urine Bilirubin 1+ (NEGATIVE) Urine Ictotest Negative (NEGATIVE) Urine Urobilinogen Normal MG/DL (0.0-1.0) Urine Leukocyte Esterase 1+ (NEGATIVE) Urine RBC 2-4 /HPF (0 - 2) Urine WBC 2-4 /HPF (0 - 2) Urine Squamous Epithelial Cells Many /LPF (NONE/OCC) Urine Bacteria Few /HPF (NONE) Urine Mucus Moderate /LPF (NONE/OCC) Sodium Level 145 MMOL/L (136-145) Potassium Level 2.7 MMOL/L (3.5-5.1) Chloride Level 112 MMOL/L (98-107) Carbon Dioxide Level 21 MMOL/L (21-32) Anion Gap 11 mmol/L (5-15) Blood Urea Nitrogen 12 mg/dL (7-18) Creatinine 0.6 MG/DL (0.55-1.30) Estimat Glomerular Filtration Rate > 60 mL/min (>60) Glucose Level 85 MG/DL (74-106) Calcium Level 7.0 MG/DL (8.5-10.1) Total Bilirubin 0.3 MG/DL (0.2-1.0) Aspartate Amino Transf (AST/SGOT) 19 U/L (15-37) Alanine Aminotransferase (ALT/SGPT) 27 U/L (12-78) Alkaline Phosphatase 191 U/L (46-116) Total Protein 6.5 G/DL (6.4-8.2) Albumin 2.7 G/DL (3.4-5.0) Globulin 3.8 g/dL Albumin/Globulin Ratio 0.7 (1.0-2.7) Lab Results Impression normal WBC, hypokalemia Last Vital Signs Date Time Temp Pulse Resp B/P (MAP) Pulse Ox O2 Delivery O2 Flow Rate FiO2 04/14/18 11:14 98.4 99 18 145/84 99 04/14/18 11:14 Room Air Disposition: ADMITTED INPATIENT Condition: Stable Cheyanne Alston MD Apr 14, 2018 12:15
--- NOTE | 2018-04-14 13:21 | Consultation ---
History of Present Illness General Date patient seen: Apr 14, 2018 Chief Complaint: Skin Rash/Abscess Present Illness HPI 53 yo female who presents with diffuse rash on chest, neck back. 4 days of rash which began under her breast. Seen yesterday in ED. No improvement with benadryl. No fever. Currently not taking antibiotics. Allergies: Coded Allergies: MORPHINE (Verified Allergy, Mild, 04/14/18) per pt only slight itchness and resolved by benadryl. toleated dilaudid. IRON (Verified Allergy, Unknown, Rash, 08/09/17) had nausea, vomiting and rashes METHADONE (Verified Allergy, Unknown, 06/04/17) PREGABALIN (Verified Allergy, Unknown, 06/04/17) Medication History Scheduled Amitriptyline Hcl* (Amitriptyline Hcl*), 25 MG ORAL BEDTIME, (Reported) Amlodipine Besylate (Norvasc), 10 MG ORAL DAILY, (Reported) Baclofen* (Lioresal*), 20 MG ORAL THREE TIMES A DAY, (Reported) Carisoprodol* (Soma*), 300 MG PO TID, (Reported) Cephalexin* (Keflex*), 500 MG ORAL EVERY 12 HOURS, (Reported) Clonazepam* (Klonopin*), 1 MG ORAL Q6H, (Reported) Diphenhydramine HCl (Benadryl), 25 MG PO Q6HR, (Reported) Duloxetine Hcl* (Cymbalta*), 30 MG ORAL DAILY, (Reported) Folic Acid* (Folic Acid*), 2 MG ORAL DAILY, (Reported) Gabapentin* (Gabapentin*), 300 MG ORAL THREE TIMES A DAY, (Reported) Heparin Sod (Porcine) (Heparin Sodium*), 5,000 UNITS SUBQ EVERY 12 HOURS, ( Reported) Hydralazine Hcl* (Hydralazine Hcl*), 25 MG ORAL EVERY 6 HOURS, (Reported) Lidocaine (Lidoderm), 1 PATCH TOPIC DAILY, (Reported) Lisinopril (Lisinopril*), 20 MG ORAL DAILY, (Reported) Lorazepam* (Lorazepam*), 1 MG ORAL THREE TIMES A DAY, (Reported) Losartan Potassium* (Losartan Potassium*), 50 MG ORAL DAILY, (Reported) Metoprolol Succinate* (Metoprolol Succinate*), 50 MG ORAL DAILY, (Reported) Nystatin* (Nystatin*), 1 APPLIC TOPIC THREE TIMES A DAY Omeprazole (Omeprazole), 20 MG ORAL DAILY, (Reported) Pantoprazole* (Protonix*), 40 MG ORAL DAILY, (Reported) Ropinirole Hcl* (Requip*), 0.5 MG ORAL THREE TIMES A DAY, (Reported) Triamcinolone Acet (Triamcinolone Acetonide), 1 APPLIC TP BID [Ms Contin], 15 MG ORAL Q8HR, (Reported) Scheduled PRN Acetaminophen* (Acetaminophen 325MG Tablet*), 650 MG ORAL Q4H PRN for Mild Pain/ Temp > 100.5, (Reported) Diazepam* (Valium*), 4 MG ORAL Q4HR PRN for Muscle Spasm, (Reported) Diphenhydramine Hcl* (Benadryl*), 50 MG ORAL Q6H PRN for Itching, (Reported) Diphenhydramine Hcl* (Benadryl*), 25-50 MG ORAL Q6H PRN for Itching Hydromorphone HCl/Pf (Hydromorphone 2 mg/ml Vial), 2 MG IV Q4HR PRN for For Pain , (Reported) Lorazepam* (Ativan*), 2 MG IV Q4H PRN for For Anxiety, (Reported) Methocarbamol* (Methocarbamol*), 750 MG ORAL QHS PRN for For Pain, (Reported) Ondansetron* (Zofran*), 4 MG IV Q6H PRN for Nausea & Vomiting, (Reported) Polyethylene Glycol 3350* (Miralax*), 17 GM ORAL DAILY PRN for Constipation, ( Reported) Temazepam* (Restoril*), 15 MG ORAL BEDTIME PRN for Insomnia, (Reported) [Nitro], 0.4 MG ORAL [id number] 3 DOSES PRN for CHEST PAIN, (Reported) Miscellaneous Medications Hydromorphone Hcl (Hydromorphone Hcl), 4 MG PO, (Reported) Morphine Sulfate (Rosanne), 15 MG PO, (Reported) Patient History Healthcare decision maker Resuscitation status Advanced Directive on File Past Medical/Surgical History Past Medical/Surgical History: (1) Opioid dependence (2) Anxiety (3) HTN (hypertension) (4) Chronic back pain (5) Benzodiazepine dependence Review of Systems All Other Systems: negative except mentioned in HPI Physical Exam General Appearance: WD/WN, other - disseminated blask macular rash Lines, tubes and drains: peripheral HEENT: normocephalic, atraumatic Respiratory/Chest: chest wall non-tender, lungs clear Abdomen: normal bowel sounds Extremities: non-tender Last 24 Hour Vital Signs Date Time Temp Pulse Resp B/P (MAP) Pulse Ox O2 Delivery O2 Flow Rate FiO2 04/14/18 11:14 98.4 99 18 145/84 99 04/14/18 11:14 98.4 99 18 145/84 99 Room Air Laboratory Tests Test 04/14/18 12:45 White Blood Count Pending Red Blood Count Pending Hemoglobin Pending Hematocrit Pending Mean Corpuscular Volume Pending Mean Corpuscular Hemoglobin Pending Mean Corpuscular Hemoglobin Concent Pending Red Cell Distribution Width Pending Platelet Count Pending Mean Platelet Volume Pending Neutrophils (%) (Auto) Pending Lymphocytes (%) (Auto) Pending Monocytes (%) (Auto) Pending Eosinophils (%) (Auto) Pending Basophils (%) (Auto) Pending Urine Color Pending Urine Appearance Pending Urine pH Pending Urine Specific [place] Pending Urine Protein Pending Urine Glucose (UA) Pending Urine Ketones Pending Urine Blood Pending Urine Nitrite Pending Urine Bilirubin Pending Urine Urobilinogen Pending Urine Leukocyte Esterase Pending Sodium Level Pending Potassium Level Pending Chloride Level Pending Carbon Dioxide Level Pending Blood Urea Nitrogen Pending Creatinine Pending Estimat Glomerular Filtration Rate Pending Glucose Level Pending Calcium Level Pending Total Bilirubin Pending Aspartate Amino Transf (AST/SGOT) Pending Alanine Aminotransferase (ALT/SGPT) Pending Alkaline Phosphatase Pending Total Protein Pending Albumin Pending Globulin Pending Height (Feet): 5 Height (Inches): 3.00 Weight (Pounds): 170 Assessment/Plan Problem List: (1) Dermatitis ICD Codes: L30.9 - Dermatitis, unspecified SNOMED: 23224671 (2) Chronic back pain ICD Codes: M54.9 - Dorsalgia, unspecified; G89.29 - Other chronic pain SNOMED: 966408780 (3) HTN (hypertension) ICD Codes: I10 - Essential (primary) hypertension SNOMED: 21894864 (4) Anxiety ICD Codes: F41.9 - Anxiety disorder, unspecified SNOMED: 34356274 (5) Opioid dependence ICD Codes: F11.20 - Opioid dependence, uncomplicated SNOMED: 86452149 Status Narrative anithistamins and steroids the cause was most likely Ancef and oxacillin that pt took pain management Adam Tom MD Apr 14, 2018 13:21
[2018-04-14 13:23] LABS: APPEARANCE,URINE SLIGHTLY CLOUDY; BASOPHILS % (AUTO) 1.4 % (0.0-2.0); BILIRUBIN, URINE 1+ (NEGATIVE); EOSINOPHILS % (AUTO) 0.7 % (0.0-3.0); GLUCOSE, URINE (UA) NEGATIVE (NEGATIVE); HEMATOCRIT 30.6 % (37.0-47.0); HEMOGLOBIN 9.7 G/DL (12.0-16.0); KETONES,URINE NEGATIVE (NEGATIVE); LEUKOCYTE ESTERASE ,URINE 1+ (NEGATIVE); LYMPHOCYTES % (AUTO) 29.5 % (20.0-45.0); MEAN CORPUSCULAR VOLUME 86 FL (80-99); NEUTROPHILS % (AUTO) 62.3 % (45.0-75.0); NITRITE,URINE NEGATIVE (NEGATIVE); PH,URINE 5 (4.5-8.0); PLATELET COUNT 377 K/UL (150-450); PROTEIN,URINE 2+ (NEGATIVE); RED BLOOD COUNT 3.55 M/UL (4.20-5.40); RED CELL DISTRIBUTION WIDTH 12.8 % (11.6-14.8); UROBILINOGEN,URINE NORMAL MG/DL (0.0-1.0)
[2018-04-14 13:28] LABS: COLOR,URINE YELLOW
[2018-04-14] MEDS ORDERED: Miralax 17gm pkt ORAL PRN (13:30)
[2018-04-14] MEDS ORDERED: Methocarbamol 750mg tab ORAL PRN (13:30)
[2018-04-14] MEDS ORDERED: Zolpidem 5mg tab ORAL PRN (13:30)
[2018-04-14] MEDS ORDERED: Mylanta II UD 30ml ORAL PRN (13:30)
[2018-04-14] MEDS ORDERED: LORazepam Inj 2mg/ml 1ml IV PRN (13:30)
[2018-04-14 13:32] LABS: ALANINE AMINOTRANSFERASE 27 U/L (12-78); ALBUMIN 2.7 G/DL (3.4-5.0); ALBUMIN/GLOBULIN RATIO 0.7 (1.0-2.7); ALKALINE PHOSPHATASE 191 U/L (46-116); ANION GAP 11 mmol/L (5-15); ASPARTATE AMINO TRANSFERASE 19 U/L (15-37); BILIRUBIN,TOTAL 0.3 MG/DL (0.2-1.0); BLOOD UREA NITROGEN 12 mg/dL (7-18); CARBON DIOXIDE 21 MMOL/L (21-32); CHLORIDE 112 MMOL/L (98-107); CREATININE 0.6 MG/DL (0.55-1.30); SODIUM 145 MMOL/L (136-145)
[2018-04-14 13:33] LABS: POTASSIUM 2.7 MMOL/L (3.5-5.1)
[2018-04-14 13:36] VITALS: BP 134/100
[2018-04-14] MEDS ORDERED: HYDROcodone/Acetamin 10/325 tab ORAL PRN (14:45)
--- NOTE | 2018-04-14 14:50 | General Progress Note ---
Assessment/Plan Assessment/Plan (1) Lumbar DDD (2) Lumbar spondylosis (4) Lumbar Herniated disc (5) Lumbar Radiculopathy (6) S/p Lumbar fusion revision Patient to be started on Dilaudid 2mg IV Q4H PRN severe pain [place] 10/325mg PO 1 tab Q4h PRN moderate pain, Flexeril 10mg PO 1 tab TID and Morphine ER 30mg BID ATC hold for oversedation. D/w Dr. Singh and he concurred. Subjective Date patient seen: Apr 14, 2018 Time patient seen: 02:00 - pm Allergies: Coded Allergies: IRON (Verified Allergy, Unknown, Rash, 08/09/17) had nausea, vomiting and rashes METHADONE (Verified Allergy, Unknown, 06/04/17) MORPHINE (Verified Allergy, Unknown, 01/13/18) PREGABALIN (Verified Allergy, Unknown, 06/04/17) Subjective REVIEW OF SYSTEMS: Denies fever, chills, sweating, dizziness, drowsiness, sore throat, or change in her weight. No shortness of breath or chest pain. No nausea, vomiting, diarrhea, or blood in stool or urine. No bowel or bladder incontinence. No dysuria. She is complaining of low back pain. SUBJECTIVE: Patient is a known patient from prior admission. Has been in [facility] where she had a lumbar surgery for revision of her pervious surgeries. She has been admitted under the care of Dr. Magallon due to a rash under the left side of her chest. We were consulted so patient has adequate pain control while here in the hospital. Objective Last 24 Hour Vital Signs Date Time Temp Pulse Resp B/P (MAP) Pulse Ox O2 Delivery O2 Flow Rate FiO2 04/14/18 14:37 98.9 89 22 128/89 100 Room Air 04/14/18 13:36 99.0 99 21 134/100 98 Room Air 04/14/18 11:14 98.4 99 18 145/84 99 04/14/18 11:14 98.4 99 18 145/84 99 Room Air Laboratory Tests 04/14/18 12:45: White Blood Count 6.0, Red Blood Count 3.55L, Hemoglobin 9.7L, Hematocrit 30.6L , Mean Corpuscular Volume 86, Mean Corpuscular Hemoglobin 27.4, Mean Corpuscular Hemoglobin Concent 31.7L, Red Cell Distribution Width 12.8, Platelet Count 377, Mean Platelet Volume 4.8L, Neutrophils (%) (Auto) 62.3, Lymphocytes (%) (Auto) 29.5, Monocytes (%) (Auto) 6.0, Eosinophils (%) (Auto) 0.7, Basophils (%) (Auto) 1.4, Urine Color Yellow, Urine Appearance Slightly cloudy, Urine pH 5, Urine Specific [place] 1.020, Urine Protein 2+H, Urine Glucose (UA) Negative, Urine Ketones Negative, Urine Blood 2+H, Urine Nitrite Negative, Urine Bilirubin 1+H, Urine Ictotest Negative, Urine Urobilinogen Normal, Urine Leukocyte Esterase 1+H, Urine RBC 2-4H, Urine WBC 2-4, Urine Squamous Epithelial Cells ManyH, Urine Bacteria Few, Urine Mucus ModerateH, Sodium Level 145, Potassium Level 2.7*L, Chloride Level 112H, Carbon Dioxide Level 21, Anion Gap 11, Blood Urea Nitrogen 12, Creatinine 0.6, Estimat Glomerular Filtration Rate > 60, Glucose Level 85, Calcium Level 7.0L, Total Bilirubin 0.3, Aspartate Amino Transf (AST/SGOT) 19, Alanine Aminotransferase ( ALT/SGPT) 27, Alkaline Phosphatase 191H, Total Protein 6.5, Albumin 2.7L, Globulin 3.8, Albumin/Globulin Ratio 0.7L Height (Feet): 5 Height (Inches): 3.00 Weight (Pounds): 170 Objective GENERAL: Alert, awake, and oriented x3. NECK: Range of motion is full in all directions. LUNGS: Clear. HEART: Regular. ABDOMEN: Soft Nontender. EXTREMITIES: No cyanosis. No clubbing. No edema. Tal Hewitt Apr 14, 2018 14:50
[2018-04-14] MEDS: Cyclobenzaprine 10mg Tab ORAL SCH ×2 (15:29→17:35)
[2018-04-14] MEDS: MS Contin 15mg tab ORAL SCH (15:30)
[2018-04-14 16:00] VITALS: BP 119/67
[2018-04-14] MEDS ORDERED: Flu Vaccine (Alfuria) for Pts Less than 65 Years old IM ONE (17:30)
[2018-04-14 20:00] VITALS: BP 168/111
[2018-04-14] MEDS: Dyna-Hex 2% Top Sol 2oz TOPIC SCH (20:43)
--- NOTE | 2018-04-14 21:15 | History and Physical Report ---
DATE OF ADMISSION: 04/14/2018 TIME SEEN: 1 p.m. CONSULTANTS: 1. Adam Tom M.D. 2. Enrico Micehl M.D 3. Ellis Angeles M.D. 4. Armani Singh M.D. CHIEF COMPLAINT: Severe rash, back pain, spasm. BRIEF HISTORY: This 53-year-old female who lives at home, presents with severe rash for three days getting worse. Yesterday she was seen in the ER, given IV Benadryl, but rash got worse. The patient came back today, being given IV Solu-Medrol now, currently slightly agitated, muscle spasm in room, slight general pain, no complaint. REVIEW OF SYSTEMS: No chest pain. Slight short of breath. No nausea, vomiting, or diarrhea. PAST MEDICAL HISTORY: Includes anxiety, hypertension, chronic back pain, muscle spasm, cauda equina syndrome. PAST SURGICAL HISTORY: Spine fusion surgery. MEDICATIONS: IV Solu-Medrol has been given as well as Pepcid and Benadryl and we will obtain list shortly. ALLERGIES: Iron, methadone, morphine, pregabalin. SOCIAL HISTORY: Positive smoking. No alcohol. No intravenous drug abuse. FAMILY HISTORY: Noncontributory. PHYSICAL EXAMINATION: GENERAL: Slightly anxious in bed, oriented x3, slight distress secondary to pain and spasm. VITAL SIGNS: Temperature is 98 degrees, pulse 99, respiratory rate 18, blood pressure 145/84. CARDIOVASCULAR: No murmur. LUNGS: Distant and clear. ABDOMEN: Bowel sounds positive. Nontender. Nondistended. EXTREMITIES: No cyanosis, clubbing, or edema. There is flat rashes below the neck as well as below the breasts bilaterally. LABORATORY AND DIAGNOSTIC DATA: Laboratories are pending. ASSESSMENT: 1. Possible allergic rash. 2. Cauda equina syndrome. 3. Chronic pain. 4. Low back pain. 5. Anxiety. 6. Hypertension. 7. Muscle spasm. PLAN: 1. Continue previous medications. 2. Solu-Medrol taper off as ordered. 3. OT/PT. 4. Dietary evaluation 5. CBC and BMP in the morning. 6. Dr. Tom, Dr. Singh, Dr. Angeles, Dr. Crews, Dr. Michel to consult. 7. We will continue to follow the patient medically. Ernesto Magallon D.O. DR: Anish JOB#: [id number] CC:
[2018-04-14] MEDS: DiphenhydrAMINE 50mg/ml Inj IVP PRN (22:49)
[2018-04-15] VITALS: BP 146/111
--- NOTE | 2018-04-15 00:16 | Consultation ---
DATE OF CONSULTATION: 04/14/2018 PSYCHIATRIC CONSULTATION CONSULTING PHYSICIAN: Amanda Crews M.D. REQUESTING PHYSICIAN: Ernesto Magallon D.O. HISTORY OF PRESENT ILLNESS: The patient was seen and assessed at bedside today. This patient came into the hospital with complaints of dermatitis and as well as cellulitis, hypokalemia, hyponatremia, anxiety, hypertension, chronic back pain, and abdominal pain, but because of her higher levels of anxiety and depression, there was a daily psychiatric consultation requested by Dr. Ernesto Magallon. I saw and assessed the patient at bedside. She says "the pain in my neck is going down to my back, it's driving me crazy. I'm in a lot of pain. This is making me very anxious and depressed." CHIEF COMPLAINT: Although she does endorse depression and anxiety, she denies any suicidal or homicidal ideations at this time. PAST MEDICAL HISTORY: As far as her medical history, she has a history of hypertension, chronic back pain, abdominal pain, lumbar arachnoiditis, urinary tract infection, status post opiate dependence, anemia, dermatitis, hyponatremia and cellulitis. ALLERGIES: To iron, methadone, morphine, and . SUBSTANCE ABUSE HISTORY: As far as this patient's substance abuse history, she does have potential addiction to opiates. PAIN ASSESSMENT: She has 9/10 pain. DEVELOPMENTAL PROBLEMS: Denies. FAMILY PSYCHIATRIC HISTORY: Denies. SOCIAL HISTORY: The patient lives in a private residence. Financially supported by [employer] and Medicare. PSYCHIATRIC HISTORY: As far as her psychiatric history, history of major depression and generalized anxiety disorder. Denies any previous psychiatric admissions. STRENGTHS: As far as the strengths, she is motivated to get better and she has a place to live. WEAKNESSES AND LIABILITIES: She is impulsive and minimal support system. MENTAL STATUS EXAMINATION: This patient is a 53-year-old female. Appearance is disheveled. Attitude, irritable and agitated. Affect, labile. Intellect, fair and she knows current events and last 4 presidents. Mood, depressed and anxious. Motor activity, psychomotor agitation. Attention span is good. She can spell the word "world" backwards. Orientation x4, person, place, time and situation. Speech is slightly hyperverbal. Denies auditory or visual hallucinations or delusions. Thought process, linear and goal directed. Denies auditory or visual hallucinations or delusions. Abstract reasoning is good. As far as her perception, it is good. She does not have any perceptual disturbances. Denies suicidal or homicidal thoughts. Insight is actually poor. She does not recognize her anxiety disorder. Judgment is poor in that the patient does not . As far as her short-term memory, 3/3 word recall after 5 minutes delay with good short-term memory. Long-term memory is intact based on the knowledge of long-term events in her life such as the high school that she went to. DIAGNOSES: PSYCHIATRIC: Major depression disorder, rule out generalized anxiety disorder. MEDICAL: Cellulitis and dermatitis, chronic pain, urinary tract infection, psychosocial stressors. Financial functional impairment, severe. PLAN: I am going to continue this patient on Cymbalta 30 mg daily as well as Neurontin 300 mg three times a day and Klonopin 1 mg every 6 hours p.r.n. anxiety and agitation. Provided with 20 minutes of cognitive behavior therapy to help identify automatic negative thoughts and helped her to convert them to more positive thoughts to reduce depression and anxiety and mood lability and also more adaptive behavioral pattern. Chart reviewed. Discussed with staff at the bedside. The patient is seen and assessed in her room. Twenty minutes of cognitive behavior therapy provided to identify automatic negative thoughts, and help her convert them to more positive thoughts to reduce depression and anxiety and suicidality. Twenty minutes of cognitive behavioral therapy provided. I would like to thank Dr. Ernesto Magallon for this interesting consultation. Amanda Crews M.D. DR: ANDREW JOB#: [id number] CC:
[2018-04-15] MEDS: Solu-MEDROL 125mg Inj IVP SCH ×4 (00:24→17:23)
[2018-04-15] MEDS: DiphenhydrAMINE 50mg/ml Inj IVP PRN ×3 (05:24→22:36)
[2018-04-15] MEDS: MS Contin 15mg tab ORAL SCH ×4 (05:24→22:36)
[2018-04-15 08:00] VITALS: BP 160/98
[2018-04-15] MEDS: Losartan 50mg tab ORAL SCH (08:14)
[2018-04-15] MEDS: Cyclobenzaprine 10mg Tab ORAL SCH ×3 (08:14→17:21)
[2018-04-15] MEDS: Metoprolol Succinate XL 50mg tab ORAL SCH (08:14)
[2018-04-15] MEDS: DULoxetine 30mg cap ORAL SCH (08:21)
[2018-04-15 09:39] LABS: HEMATOCRIT 33.5 % (37.0-47.0); HEMOGLOBIN 10.9 G/DL (12.0-16.0); MEAN CORPUSCULAR VOLUME 85 FL (80-99); PLATELET COUNT 401 K/UL (150-450); RED BLOOD COUNT 3.92 M/UL (4.20-5.40); RED CELL DISTRIBUTION WIDTH 12.3 % (11.6-14.8); WHITE BLOOD COUNT 9.1 K/UL (4.8-10.8)
[2018-04-15 10:05] LABS: ALANINE AMINOTRANSFERASE 50 U/L (12-78); ALBUMIN 3.5 G/DL (3.4-5.0); ALBUMIN/GLOBULIN RATIO 0.7 (1.0-2.7); ALKALINE PHOSPHATASE 250 U/L (46-116); ANION GAP 10 mmol/L (5-15); ASPARTATE AMINO TRANSFERASE 24 U/L (15-37); BILIRUBIN,TOTAL 0.1 MG/DL (0.2-1.0); BLOOD UREA NITROGEN 17 mg/dL (7-18); CALCIUM 9.7 MG/DL (8.5-10.1); CARBON DIOXIDE 24 MMOL/L (21-32); CHLORIDE 104 MMOL/L (98-107); CHOLESTEROL 207 MG/DL (< 200); HDL CHOLESTEROL 109 MG/DL (40-60); POTASSIUM 4.5 MMOL/L (3.5-5.1); SODIUM 138 MMOL/L (136-145); TRIGLYCERIDES 37 MG/DL (30-150)
--- NOTE | 2018-04-15 10:30 | Progress Note ---
DATE: 04/15/2018 SUBJECTIVE: This is a 53-year-old female patient with dermatitis. This patient does have some confusion, disorganized thought process, and mood lability worsened by stress of her medical illness, high levels of anxiety. That is why her attending has requested daily psychiatric consultation. MENTAL STATUS EXAMINATION: This is a 53-year-old female. Appearance is disheveled. Attitude, irritable and agitated. Affect, guarded and restricted. Intellect poor. Mood depressed and anxious. Motor activity, psychomotor agitation. Attention span is poor. Orientation x2. Speech is pressured. Thought process, disorganized and illogical. Thought content, denies auditory or visual hallucinations or delusions. Insight and judgment is poor. DIAGNOSIS: Major depressive disorder, severe, recurrent, without psychotic features. PLAN: Treat her with Cymbalta 30 mg a day, Klonopin 1 mg every six hours p.r.n. anxiety and agitation, and Neurontin 300 mg . Provided 20 minutes of cognitive behavior therapy was provided to identify automatic negative thoughts and help her convert the negative thoughts to more positive thoughts to reduce depression, anxiety, and suicidality. A 20 minutes of cognitive behavior therapy provided. Chart reviewed. Discussed with staff. Seen and assessed at bedside. Amanda Crews M.D. DR: YEFRI JOB#: [id number] CC:
--- NOTE | 2018-04-15 11:15 | Consultation ---
History of Present Illness General Date patient seen: Apr 15, 2018 Chief Complaint: Skin Rash/Abscess Present Illness HPI 53 y/o F with hx of HTN, Anxiety, spinal cord injury s/p surgery 2009, chronic back pain/cauda equina syndrome presents to ED on 04/14 with diffuse rash on chest, neck, back. Rash originally started 4 days ago under her breast and progressed. Did not improved with benadryl. Denied fever, dyspnea, facial swelling, wheezing, n/v/d. Of note, patient had back surgery 02/25 at [facility]. She had to have a revision on 03/15 due to concerns for infection. Patient refers she was on antibiotic this time. She is not very clear about timeline and names of antibiotisc but she was discharged home wiht PO Cipro and Amoxicillin for 2 weeks. She had a bottle of the Cipro and this said was filled on 03/22 for 2 weeks which may have been finished on 04/05. She finished amoxicillin but had 4 pills left of cipro. Also she had Keflex prescribed by neuro sx after results of a blood work ("was told had higher infection").. This was last week. She refers her rash started last (04/07), same day she was prescribed Keflex but think it may been present before taking the keflex Allergies: Coded Allergies: MORPHINE (Verified Allergy, Mild, 04/14/18) per pt only slight itchness and resolved by benadryl. toleated dilaudid. CEFAZOLIN (Verified Allergy, Unknown, 04/15/18) IRON (Verified Allergy, Unknown, Rash, 08/09/17) had nausea, vomiting and rashes METHADONE (Verified Allergy, Unknown, 06/04/17) PENICILLINS (Verified Allergy, Unknown, 04/15/18) PREGABALIN (Verified Allergy, Unknown, 06/04/17) Medication History Scheduled Amitriptyline Hcl* (Amitriptyline Hcl*), 25 MG ORAL BEDTIME, (Reported) Amlodipine Besylate (Norvasc), 10 MG ORAL DAILY, (Reported) Baclofen* (Lioresal*), 20 MG ORAL THREE TIMES A DAY, (Reported) Carisoprodol* (Soma*), 300 MG PO TID, (Reported) Cephalexin* (Keflex*), 500 MG ORAL EVERY 12 HOURS, (Reported) Clonazepam* (Klonopin*), 1 MG ORAL Q6H, (Reported) Diphenhydramine HCl (Benadryl), 25 MG PO Q6HR, (Reported) Duloxetine Hcl* (Cymbalta*), 30 MG ORAL DAILY, (Reported) Folic Acid* (Folic Acid*), 2 MG ORAL DAILY, (Reported) Gabapentin* (Gabapentin*), 300 MG ORAL THREE TIMES A DAY, (Reported) Heparin Sod (Porcine) (Heparin Sodium*), 5,000 UNITS SUBQ EVERY 12 HOURS, ( Reported) Hydralazine Hcl* (Hydralazine Hcl*), 25 MG ORAL EVERY 6 HOURS, (Reported) Lidocaine (Lidoderm), 1 PATCH TOPIC DAILY, (Reported) Lisinopril (Lisinopril*), 20 MG ORAL DAILY, (Reported) Lorazepam* (Lorazepam*), 1 MG ORAL THREE TIMES A DAY, (Reported) Losartan Potassium* (Losartan Potassium*), 50 MG ORAL DAILY, (Reported) Metoprolol Succinate* (Metoprolol Succinate*), 50 MG ORAL DAILY, (Reported) Nystatin* (Nystatin*), 1 APPLIC TOPIC THREE TIMES A DAY Omeprazole (Omeprazole), 20 MG ORAL DAILY, (Reported) Pantoprazole* (Protonix*), 40 MG ORAL DAILY, (Reported) Ropinirole Hcl* (Requip*), 0.5 MG ORAL THREE TIMES A DAY, (Reported) Triamcinolone Acet (Triamcinolone Acetonide), 1 APPLIC TP BID [Ms Contin], 15 MG ORAL Q8HR, (Reported) Scheduled PRN Acetaminophen* (Acetaminophen 325MG Tablet*), 650 MG ORAL Q4H PRN for Mild Pain/ Temp > 100.5, (Reported) Diazepam* (Valium*), 4 MG ORAL Q4HR PRN for Muscle Spasm, (Reported) Diphenhydramine Hcl* (Benadryl*), 50 MG ORAL Q6H PRN for Itching, (Reported) Diphenhydramine Hcl* (Benadryl*), 25-50 MG ORAL Q6H PRN for Itching Hydromorphone HCl/Pf (Hydromorphone 2 mg/ml Vial), 2 MG IV Q4HR PRN for For Pain , (Reported) Lorazepam* (Ativan*), 2 MG IV Q4H PRN for For Anxiety, (Reported) Methocarbamol* (Methocarbamol*), 750 MG ORAL QHS PRN for For Pain, (Reported) Ondansetron* (Zofran*), 4 MG IV Q6H PRN for Nausea & Vomiting, (Reported) Polyethylene Glycol 3350* (Miralax*), 17 GM ORAL DAILY PRN for Constipation, ( Reported) Temazepam* (Restoril*), 15 MG ORAL BEDTIME PRN for Insomnia, (Reported) [Nitro], 0.4 MG ORAL [id number] 3 DOSES PRN for CHEST PAIN, (Reported) Miscellaneous Medications Hydromorphone Hcl (Hydromorphone Hcl), 4 MG PO, (Reported) Morphine Sulfate (Rosanne), 15 MG PO, (Reported) Patient History Healthcare decision maker Resuscitation status Full Code Advanced Directive on File Patient History Narrative Pmhx: as above Shx: The patient lives in a private residence. Financially supported by [employer] and Medicare. Positive smoking. No alcohol. No intravenous drug abuse. Fhx: non contributory Review of Systems All Other Systems: negative except mentioned in HPI Physical Exam Physical Exam Narrative GENERAL: Slightly anxious in bed, oriented x3, slight distress secondary to pain and spasm. CARDIOVASCULAR: No murmur. LUNGS: Distant and clear. ABDOMEN: Bowel sounds positive. Nontender. Nondistended. EXTREMITIES: No cyanosis, clubbing, or edema. There is flat rashes below the neck as well as below the breasts bilaterally. Last 24 Hour Vital Signs Date Time Temp Pulse Resp B/P (MAP) Pulse Ox O2 Delivery O2 Flow Rate FiO2 04/15/18 09:00 Room Air 04/15/18 08:42 98.8 04/15/18 08:14 100 160/98 04/15/18 08:14 160/98 04/15/18 08:13 100 160/98 04/15/18 08:00 98.8 100 19 160/98 (118) 99 04/15/18 00:00 98.4 117 18 146/111 (123) 99 04/14/18 21:00 Room Air 04/14/18 20:00 98.6 113 18 168/111 (130) 99 04/14/18 16:00 99.1 101 20 119/67 (84) 96 04/14/18 14:45 Room Air 04/14/18 14:37 98.9 89 22 128/89 100 Room Air 04/14/18 13:36 99.0 99 21 134/100 98 Room Air 04/14/18 11:14 98.4 99 18 145/84 99 04/14/18 11:14 98.4 99 18 145/84 99 Room Air Intake and Output 04/14/18 04/15/18 18:59 06:59 Intake Total 400 ml 500 ml Balance 400 ml 500 ml Intake Oral 400 ml 500 ml # Voids 1 # Bowel Movements 1 Laboratory Tests Test 04/14/18 12:45 04/15/18 09:20 White Blood Count 6.0 K/UL (4.8-10.8) 9.1 K/UL (4.8-10.8) # Red Blood Count 3.55 M/UL (4.20-5.40) L 3.92 M/UL (4.20-5.40) L Hemoglobin 9.7 G/DL (12.0-16.0) L 10.9 G/DL (12.0-16.0) L Hematocrit 30.6 % (37.0-47.0) L 33.5 % (37.0-47.0) L Mean Corpuscular Volume 86 FL (80-99) 85 FL (80-99) Mean Corpuscular Hemoglobin 27.4 PG (27.0-31.0) 27.9 PG (27.0-31.0) Mean Corpuscular Hemoglobin Concent 31.7 G/DL (32.0-36.0) L 32.6 G/DL (32.0-36.0) Red Cell Distribution Width 12.8 % (11.6-14.8) 12.3 % (11.6-14.8) Platelet Count 377 K/UL (150-450) 401 K/UL (150-450) Mean Platelet Volume 4.8 FL (6.5-10.1) L 4.6 FL (6.5-10.1) L Neutrophils (%) (Auto) 62.3 % (45.0-75.0) % (45.0-75.0) Lymphocytes (%) (Auto) 29.5 % (20.0-45.0) % (20.0-45.0) Monocytes (%) (Auto) 6.0 % (1.0-10.0) % (1.0-10.0) Eosinophils (%) (Auto) 0.7 % (0.0-3.0) % (0.0-3.0) Basophils (%) (Auto) 1.4 % (0.0-2.0) % (0.0-2.0) Urine Color Yellow Urine Appearance Slightly cloudy Urine pH 5 (4.5-8.0) Urine Specific [place] 1.020 (1.005-1.035) Urine Protein 2+ (NEGATIVE) H Urine Glucose (UA) Negative (NEGATIVE) Urine Ketones Negative (NEGATIVE) Urine Blood 2+ (NEGATIVE) H Urine Nitrite Negative (NEGATIVE) Urine Bilirubin 1+ (NEGATIVE) H Urine Ictotest Negative (NEGATIVE) Urine Urobilinogen Normal MG/DL (0.0-1.0) Urine Leukocyte Esterase 1+ (NEGATIVE) H Urine RBC 2-4 /HPF (0 - 2) H Urine WBC 2-4 /HPF (0 - 2) Urine Squamous Epithelial Cells Many /LPF (NONE/OCC) H Urine Bacteria Few /HPF (NONE) Urine Mucus Moderate /LPF (NONE/OCC) H Sodium Level 145 MMOL/L (136-145) 138 MMOL/L (136-145) Potassium Level 2.7 MMOL/L (3.5-5.1) *L 4.5 MMOL/L (3.5-5.1) # Chloride Level 112 MMOL/L (98-107) H 104 MMOL/L (98-107) Carbon Dioxide Level 21 MMOL/L (21-32) 24 MMOL/L (21-32) Anion Gap 11 mmol/L (5-15) 10 mmol/L (5-15) Blood Urea Nitrogen 12 mg/dL (7-18) 17 mg/dL (7-18) Creatinine 0.6 MG/DL (0.55-1.30) 1.0 MG/DL (0.55-1.30) # Estimat Glomerular Filtration Rate > 60 mL/min (>60) > 60 mL/min (>60) Glucose Level 85 MG/DL (74-106) 199 MG/DL (74-106) #H Calcium Level 7.0 MG/DL (8.5-10.1) L 9.7 MG/DL (8.5-10.1) # Total Bilirubin 0.3 MG/DL (0.2-1.0) 0.1 MG/DL (0.2-1.0) L Aspartate Amino Transf (AST/SGOT) 19 U/L (15-37) 24 U/L (15-37) Alanine Aminotransferase (ALT/SGPT) 27 U/L (12-78) 50 U/L (12-78) Alkaline Phosphatase 191 U/L (46-116) H 250 U/L (46-116) H Total Protein 6.5 G/DL (6.4-8.2) 8.8 G/DL (6.4-8.2) #H Albumin 2.7 G/DL (3.4-5.0) L 3.5 G/DL (3.4-5.0) Globulin 3.8 g/dL 5.3 g/dL Albumin/Globulin Ratio 0.7 (1.0-2.7) L 0.7 (1.0-2.7) L Differential Total Cells Counted 100 Neutrophils % (Manual) 85 % (45-75) H Lymphocytes % (Manual) 12 % (20-45) L Monocytes % (Manual) 2 % (1-10) Eosinophils % (Manual) 0 % (0-3) Basophils % (Manual) 1 % (0-2) Band Neutrophils 0 % (0-8) Platelet Estimate Adequate Platelet Morphology Normal Red Blood Cell Morphology Normal Triglycerides Level 37 MG/DL (30-150) Cholesterol Level 207 MG/DL (< 200) H LDL Cholesterol 87 mg/dL (<100) HDL Cholesterol 109 MG/DL (40-60) H Cholesterol/HDL Ratio 1.9 (3.3-4.4) L Thyroid Stimulating Hormone (TSH) 0.294 uiU/mL (0.358-3.740) Height (Feet): 5 Height (Inches): 3.00 Weight (Pounds): 170 Medications Current Medications Medications (Trade) Dose Ordered Sig/Danni Route PRN Reason Start Time Stop Time Status Last Admin Dose Admin Acetaminophen (Tylenol) 650 mg Q4H PRN ORAL fever 04/14/18 13:30 05/14/18 13:29 Acetaminophen/ Hydrocodone Bitart ([place] 10/325) 1 tab Q4H PRN ORAL moderate pain 04/14/18 14:45 04/21/18 14:44 Al Hydroxide/Mg Hydroxide (Mylanta II) 30 ml Q6H PRN ORAL dyspepsia 04/14/18 13:30 05/14/18 13:29 Amitriptyline HCl (Elavil) 25 mg BEDTIME ORAL 04/14/18 21:00 05/14/18 20:59 04/14/18 20:42 Amlodipine Besylate (Norvasc) 10 mg DAILY ORAL 04/15/18 09:00 05/15/18 08:59 04/15/18 08:13 Chlorhexidine Gluconate (Margot-Hex 2%) 1 applic DAILY@2000 TOPIC 04/14/18 20:00 05/14/18 19:59 04/14/18 20:43 Clonazepam (KlonoPIN) 1 mg Q6H ORAL 04/14/18 13:30 04/21/18 13:29 04/15/18 08:15 Cyclobenzaprine HCl (Flexeril) 10 mg THREE TIMES A DAY ORAL 04/14/18 14:45 05/14/18 14:44 04/15/18 08:14 Dextrose (Dextrose 50%) 25 ml STAT PRN IV Hypoglycemia 04/14/18 13:30 05/14/18 13:29 Dextrose (Dextrose 50%) 50 ml STAT PRN IV Hypoglycemia 04/14/18 13:45 05/14/18 13:44 Diazepam (Valium) 4 mg Q4HR PRN ORAL Muscle Spasm 04/14/18 13:30 04/21/18 13:29 Diphenhydramine HCl (Benadryl) 50 mg Q6H PRN IVP Itching 04/14/18 22:15 05/14/18 22:14 04/15/18 05:24 Duloxetine HCl (Cymbalta) 30 mg DAILY ORAL 04/15/18 09:00 05/15/18 08:59 Gabapentin (Neurontin) 300 mg THREE TIMES A DAY ORAL 04/14/18 18:00 05/14/18 17:59 04/15/18 08:14 Hydromorphone HCl (Dilaudid) 2 mg Q4H PRN IVP severe pain 04/14/18 14:45 04/21/18 14:44 04/15/18 08:12 Lorazepam (Ativan 2mg/ml 1ml) 0.5 mg Q4H PRN IV For Anxiety 04/14/18 13:30 04/21/18 13:29 04/14/18 18:22 Losartan Potassium (Cozaar) 50 mg DAILY ORAL 04/15/18 09:00 05/15/18 08:59 04/15/18 08:14 Methylprednisolone Sodium Succinate (Solu-MEDROL) 60 mg Q6HR IVP 04/15/18 00:00 05/15/18 00:00 04/15/18 06:00 Metoprolol Succinate (Toprol XL) 50 mg DAILY ORAL 04/15/18 09:00 05/15/18 08:59 04/15/18 08:14 Morphine Sulfate (MS Contin) 30 mg 0500,1700 ORAL 04/14/18 15:00 04/21/18 14:59 04/15/18 05:24 Ondansetron HCl (Zofran) 4 mg Q6H PRN IVP Nausea & Vomiting 04/14/18 13:30 05/14/18 13:29 Polyethylene Glycol (Miralax) 17 gm HSPRN PRN ORAL Constipation 04/14/18 13:30 05/14/18 13:29 Zolpidem Tartrate (Ambien) 5 mg HSPRN PRN ORAL Insomnia 04/14/18 13:30 04/21/18 13:29 Assessment/Plan Assessment/Plan Abx: None Assessment: Rash in torso/face- likely allergic rash to Amoxicillin; imporving now Recent spinal fusion 02/25 w/ revision 03/15, concern for surgical site infx and ts 2 wks of PO Cipro and Amoxicillin- at present no signs of infection -I spoke with outside Infectious Disease Physician (Dr Sonu Morales p. ) and there was no concern for OM, epidural abscess or deeper infection. her cx were actually negative and they wanted to do only a short course of antibiotics Afebrile No leukocytosis -u/a n eg HTN Anxiety spinal cord injury s/p surgery 2010 chronic back pain/cauda equina syndrome Plan: -Continue to monitor off abx -f/u cx -Monitor CBC/CMP, temperatures -wound care -aspiration precautions Thank you for this consultation. Will continue to follow along with you. Discussed with CHERI. Madeline Doherty M.D. Apr 15, 2018 11:15
--- NOTE | 2018-04-15 11:58 | Diagnostic Imaging Report ---
APPROVED REPORT CPT Code: 94008 Present Symptoms Lower Extremity Pain: Bilateral RIGHT LEG: Venous imaging reveals recanalized chronic thrombus in the superficial femoral vein. Large collateral vein noted anterior to the superficial femoral artery. Imaging also reveals patency of the common femoral, popliteal and calf veins. The greater saphenous vein is also within normal limits. Doppler indicates normal spontaneous flow within these segments. LEFT LEG: Venous imaging reveals a patent deep venous system. There is no evidence of thrombus within the femoral, popliteal or tibial segments. The greater saphenous vein is also within normal limits. Doppler indicates normal spontaneous flow within these segments. There is no evidence of acute deep vein thrombosis.
[2018-04-15 12:00] VITALS: BP 144/103
--- NOTE | 2018-04-15 12:00 | General Progress Note ---
Assessment/Plan Problem List: (1) Cellulitis ICD Codes: L03.90 - Cellulitis, unspecified SNOMED: 779887381 (2) HTN (hypertension) ICD Codes: I10 - Essential (primary) hypertension SNOMED: 47915649 (3) Muscle spasm ICD Codes: M62.838 - Other muscle spasm SNOMED: 06626082, 75371993 (4) Dermatitis ICD Codes: L30.9 - Dermatitis, unspecified SNOMED: 77829878 (5) Intractable back pain ICD Codes: M54.9 - Dorsalgia, unspecified SNOMED: 903786175 (6) Chronic pain syndrome ICD Codes: G89.4 - Chronic pain syndrome SNOMED: 084165550 Status: unchanged Assessment/Plan ot pt diet wound care pain control abx cbc bmp am Subjective Constitutional: Reports: weakness Allergies: Coded Allergies: MORPHINE (Verified Allergy, Mild, 04/14/18) per pt only slight itchness and resolved by benadryl. toleated dilaudid. IRON (Verified Allergy, Unknown, Rash, 08/09/17) had nausea, vomiting and rashes METHADONE (Verified Allergy, Unknown, 06/04/17) PREGABALIN (Verified Allergy, Unknown, 06/04/17) All Systems: reviewed and negative except above Subjective sl general itch Objective Last 24 Hour Vital Signs Date Time Temp Pulse Resp B/P (MAP) Pulse Ox O2 Delivery O2 Flow Rate FiO2 04/15/18 09:00 Room Air 04/15/18 08:42 98.8 04/15/18 08:14 100 160/98 04/15/18 08:14 160/98 04/15/18 08:13 100 160/98 04/15/18 08:00 98.8 100 19 160/98 (118) 99 04/15/18 00:00 98.4 117 18 146/111 (123) 99 04/14/18 21:00 Room Air 04/14/18 20:00 98.6 113 18 168/111 (130) 99 04/14/18 16:00 99.1 101 20 119/67 (84) 96 04/14/18 14:45 Room Air 04/14/18 14:37 98.9 89 22 128/89 100 Room Air 04/14/18 13:36 99.0 99 21 134/100 98 Room Air Intake and Output 04/14/18 04/15/18 18:59 06:59 Intake Total 400 ml 500 ml Balance 400 ml 500 ml Intake Oral 400 ml 500 ml # Voids 1 # Bowel Movements 1 Laboratory Tests 04/14/18 12:45: White Blood Count 6.0, Red Blood Count 3.55L, Hemoglobin 9.7L, Hematocrit 30.6L , Mean Corpuscular Volume 86, Mean Corpuscular Hemoglobin 27.4, Mean Corpuscular Hemoglobin Concent 31.7L, Red Cell Distribution Width 12.8, Platelet Count 377, Mean Platelet Volume 4.8L, Neutrophils (%) (Auto) 62.3, Lymphocytes (%) (Auto) 29.5, Monocytes (%) (Auto) 6.0, Eosinophils (%) (Auto) 0.7, Basophils (%) (Auto) 1.4, Urine Color Yellow, Urine Appearance Slightly cloudy, Urine pH 5, Urine Specific [place] 1.020, Urine Protein 2+H, Urine Glucose (UA) Negative, Urine Ketones Negative, Urine Blood 2+H, Urine Nitrite Negative, Urine Bilirubin 1+H, Urine Ictotest Negative, Urine Urobilinogen Normal, Urine Leukocyte Esterase 1+H, Urine RBC 2-4H, Urine WBC 2-4, Urine Squamous Epithelial Cells ManyH, Urine Bacteria Few, Urine Mucus ModerateH, Sodium Level 145, Potassium Level 2.7*L, Chloride Level 112H, Carbon Dioxide Level 21, Anion Gap 11, Blood Urea Nitrogen 12, Creatinine 0.6, Estimat Glomerular Filtration Rate > 60, Glucose Level 85, Calcium Level 7.0L, Total Bilirubin 0.3, Aspartate Amino Transf (AST/SGOT) 19, Alanine Aminotransferase ( ALT/SGPT) 27, Alkaline Phosphatase 191H, Total Protein 6.5, Albumin 2.7L, Globulin 3.8, Albumin/Globulin Ratio 0.7L 04/15/18 09:20: White Blood Count 9.1#, Red Blood Count 3.92L, Hemoglobin 10.9L, Hematocrit 33.5L, Mean Corpuscular Volume 85, Mean Corpuscular Hemoglobin 27.9, Mean Corpuscular Hemoglobin Concent 32.6, Red Cell Distribution Width 12.3, Platelet Count 401, Mean Platelet Volume 4.6L, Neutrophils (%) (Auto) , Lymphocytes (%) ( Auto) , Monocytes (%) (Auto) , Eosinophils (%) (Auto) , Basophils (%) (Auto) , Sodium Level 138, Potassium Level 4.5#, Chloride Level 104, Carbon Dioxide Level 24, Anion Gap 10, Blood Urea Nitrogen 17, Creatinine 1.0#, Estimat Glomerular Filtration Rate > 60, Glucose Level 199#H, Calcium Level 9.7#, Total Bilirubin 0.1L, Aspartate Amino Transf (AST/SGOT) 24, Alanine Aminotransferase ( ALT/SGPT) 50, Alkaline Phosphatase 250H, Total Protein 8.8#H, Albumin 3.5, Globulin 5.3, Albumin/Globulin Ratio 0.7L, Differential Total Cells Counted 100 , Neutrophils % (Manual) 85H, Lymphocytes % (Manual) 12L, Monocytes % (Manual) 2 , Eosinophils % (Manual) 0, Basophils % (Manual) 1, Band Neutrophils 0, Platelet Estimate Adequate, Platelet Morphology Normal, Red Blood Cell Morphology Normal, Triglycerides Level 37, Cholesterol Level 207H, LDL Cholesterol 87, HDL Cholesterol 109H, Cholesterol/HDL Ratio 1.9L, Thyroid Stimulating Hormone (TSH) 0.294L Height (Feet): 5 Height (Inches): 3.00 Weight (Pounds): 170 General Appearance: lethargic EENT: normal ENT inspection Neck: normal alignment Cardiovascular: normal peripheral pulses, normal rate, regular rhythm Respiratory/Chest: chest wall non-tender, lungs clear, normal breath sounds Abdomen: normal bowel sounds, non tender, soft Extremities: normal inspection Edema: no edema noted Arm (L), no edema noted Arm (R), no edema noted Leg (L), no edema noted Leg (R), no edema noted Pedal (L), no edema noted Pedal (R), no edema noted Generalized Objective patchy dark rash neck area and below b/ breast Ernesto Magallon DO Apr 15, 2018 12:00
--- NOTE | 2018-04-15 12:58 | Pulmonology Progress Note ---
Assessment/Plan Problems: (1) Dermatitis (2) Chronic back pain (3) HTN (hypertension) (4) Anxiety (5) Opioid dependence Assessment/Plan improving pt could be discharged with oral steroids Subjective ROS Limited/Unobtainable: No Constitutional: Reports: no symptoms HEENT: Repors: no symptoms Respiratory: Reports: no symptoms Allergies: Coded Allergies: MORPHINE (Verified Allergy, Mild, 04/14/18) per pt only slight itchness and resolved by benadryl. toleated dilaudid. IRON (Verified Allergy, Unknown, Rash, 08/09/17) had nausea, vomiting and rashes METHADONE (Verified Allergy, Unknown, 06/04/17) PREGABALIN (Verified Allergy, Unknown, 06/04/17) Objective Last 24 Hour Vital Signs Date Time Temp Pulse Resp B/P (MAP) Pulse Ox O2 Delivery O2 Flow Rate FiO2 04/15/18 12:00 98.1 84 18 144/103 (117) 100 04/15/18 09:00 Room Air 04/15/18 08:42 98.8 04/15/18 08:14 100 160/98 04/15/18 08:14 160/98 04/15/18 08:13 100 160/98 04/15/18 08:00 98.8 100 19 160/98 (118) 99 04/15/18 00:00 98.4 117 18 146/111 (123) 99 04/14/18 21:00 Room Air 04/14/18 20:00 98.6 113 18 168/111 (130) 99 04/14/18 16:00 99.1 101 20 119/67 (84) 96 04/14/18 14:45 Room Air 04/14/18 14:37 98.9 89 22 128/89 100 Room Air 04/14/18 13:36 99.0 99 21 134/100 98 Room Air Intake and Output 04/14/18 04/15/18 18:59 06:59 Intake Total 400 ml 500 ml Balance 400 ml 500 ml Intake Oral 400 ml 500 ml # Voids 1 # Bowel Movements 1 General Appearance: WD/WN HEENT: normocephalic, atraumatic Respiratory/Chest: chest wall non-tender, lungs clear Cardiovascular: normal peripheral pulses, regular rhythm Abdomen: normal bowel sounds, no organomegaly Genitourinary: normal external genitalia Extremities: no cyanosis Skin: no rash Laboratory Tests 04/15/18 09:20: White Blood Count 9.1#, Red Blood Count 3.92L, Hemoglobin 10.9L, Hematocrit 33.5L, Mean Corpuscular Volume 85, Mean Corpuscular Hemoglobin 27.9, Mean Corpuscular Hemoglobin Concent 32.6, Red Cell Distribution Width 12.3, Platelet Count 401, Mean Platelet Volume 4.6L, Neutrophils (%) (Auto) , Lymphocytes (%) ( Auto) , Monocytes (%) (Auto) , Eosinophils (%) (Auto) , Basophils (%) (Auto) , Differential Total Cells Counted 100, Neutrophils % (Manual) 85H, Lymphocytes % (Manual) 12L, Monocytes % (Manual) 2, Eosinophils % (Manual) 0, Basophils % ( Manual) 1, Band Neutrophils 0, Platelet Estimate Adequate, Platelet Morphology Normal, Red Blood Cell Morphology Normal, Sodium Level 138, Potassium Level 4.5# , Chloride Level 104, Carbon Dioxide Level 24, Anion Gap 10, Blood Urea Nitrogen 17, Creatinine 1.0#, Estimat Glomerular Filtration Rate > 60, Glucose Level 199#H, Calcium Level 9.7#, Total Bilirubin 0.1L, Aspartate Amino Transf ( AST/SGOT) 24, Alanine Aminotransferase (ALT/SGPT) 50, Alkaline Phosphatase 250H , Total Protein 8.8#H, Albumin 3.5, Globulin 5.3, Albumin/Globulin Ratio 0.7L, Triglycerides Level 37, Cholesterol Level 207H, LDL Cholesterol 87, HDL Cholesterol 109H, Cholesterol/HDL Ratio 1.9L, Thyroid Stimulating Hormone (TSH) 0.294L Current Medications Medications (Trade) Dose Ordered Sig/Danni Route PRN Reason Start Time Stop Time Status Last Admin Dose Admin Acetaminophen (Tylenol) 650 mg Q4H PRN ORAL fever 04/14/18 13:30 05/14/18 13:29 Acetaminophen/ Hydrocodone Bitart ([place] 10/325) 1 tab Q4H PRN ORAL moderate pain 04/14/18 14:45 04/21/18 14:44 Al Hydroxide/Mg Hydroxide (Mylanta II) 30 ml Q6H PRN ORAL dyspepsia 04/14/18 13:30 05/14/18 13:29 Amitriptyline HCl (Elavil) 25 mg BEDTIME ORAL 04/14/18 21:00 05/14/18 20:59 04/14/18 20:42 Amlodipine Besylate (Norvasc) 10 mg DAILY ORAL 04/15/18 09:00 05/15/18 08:59 04/15/18 08:13 Chlorhexidine Gluconate (Margot-Hex 2%) 1 applic DAILY@2000 TOPIC 04/14/18 20:00 05/14/18 19:59 04/14/18 20:43 Clonazepam (KlonoPIN) 1 mg Q6H ORAL 04/14/18 13:30 04/21/18 13:29 04/15/18 12:38 Cyclobenzaprine HCl (Flexeril) 10 mg THREE TIMES A DAY ORAL 04/14/18 14:45 05/14/18 14:44 04/15/18 12:39 Dextrose (Dextrose 50%) 25 ml STAT PRN IV Hypoglycemia 04/14/18 13:30 05/14/18 13:29 Dextrose (Dextrose 50%) 50 ml STAT PRN IV Hypoglycemia 04/14/18 13:45 05/14/18 13:44 Diazepam (Valium) 4 mg Q4HR PRN ORAL Muscle Spasm 04/14/18 13:30 04/21/18 13:29 Diphenhydramine HCl (Benadryl) 50 mg Q6H PRN IVP Itching 04/14/18 22:15 05/14/18 22:14 04/15/18 11:45 Duloxetine HCl (Cymbalta) 30 mg DAILY ORAL 04/15/18 09:00 05/15/18 08:59 Gabapentin (Neurontin) 300 mg THREE TIMES A DAY ORAL 04/14/18 18:00 05/14/18 17:59 04/15/18 12:38 Hydromorphone HCl (Dilaudid) 2 mg Q4H PRN IVP severe pain 04/14/18 14:45 04/21/18 14:44 04/15/18 08:12 Lorazepam (Ativan 2mg/ml 1ml) 0.5 mg Q4H PRN IV For Anxiety 04/14/18 13:30 04/21/18 13:29 04/14/18 18:22 Losartan Potassium (Cozaar) 50 mg DAILY ORAL 04/15/18 09:00 05/15/18 08:59 04/15/18 08:14 Methylprednisolone Sodium Succinate (Solu-MEDROL) 60 mg Q6HR IVP 04/15/18 00:00 05/15/18 00:00 04/15/18 11:47 Metoprolol Succinate (Toprol XL) 50 mg DAILY ORAL 04/15/18 09:00 05/15/18 08:59 04/15/18 08:14 Morphine Sulfate (MS Contin) 30 mg 0500,1700 ORAL 04/14/18 15:00 04/21/18 14:59 04/15/18 05:24 Ondansetron HCl (Zofran) 4 mg Q6H PRN IVP Nausea & Vomiting 04/14/18 13:30 05/14/18 13:29 Polyethylene Glycol (Miralax) 17 gm HSPRN PRN ORAL Constipation 04/14/18 13:30 05/14/18 13:29 Zolpidem Tartrate (Ambien) 5 mg HSPRN PRN ORAL Insomnia 04/14/18 13:30 04/21/18 13:29 Adam Tom MD Apr 15, 2018 12:58
--- NOTE | 2018-04-15 14:11 | General Progress Note ---
Assessment/Plan Assessment/Plan (1) Lumbar DDD (2) Lumbar spondylosis (4) Lumbar Herniated disc (5) Lumbar Radiculopathy (6) S/p Lumbar fusion revision Patient to be continued on Dilaudid, [place], Flexeril and Morphine ER 30mg increased to TID ATC hold for oversedation. D/w Dr. Singh and he concurred. Subjective Date patient seen: Apr 15, 2018 Time patient seen: 01:00 - pm Allergies: Coded Allergies: MORPHINE (Verified Allergy, Mild, 04/14/18) per pt only slight itchness and resolved by benadryl. toleated dilaudid. CEFAZOLIN (Verified Allergy, Unknown, 04/15/18) IRON (Verified Allergy, Unknown, Rash, 08/09/17) had nausea, vomiting and rashes METHADONE (Verified Allergy, Unknown, 06/04/17) PENICILLINS (Verified Allergy, Unknown, 04/15/18) PREGABALIN (Verified Allergy, Unknown, 06/04/17) Subjective REVIEW OF SYSTEMS: Denies fever, chills, sweating, dizziness, drowsiness, sore throat, or change in her weight. No shortness of breath or chest pain. No nausea, vomiting, diarrhea, or blood in stool or urine. No bowel or bladder incontinence. No dysuria. She is complaining of low back pain. SUBJECTIVE: Patient reports that her pain has been severe and minimally reduced on the current regimen. I d/w her about increasing the Morphine ER to Q8H She understands. Objective Last 24 Hour Vital Signs Date Time Temp Pulse Resp B/P (MAP) Pulse Ox O2 Delivery O2 Flow Rate FiO2 04/15/18 13:09 98.1 04/15/18 12:00 98.1 84 18 144/103 (117) 100 04/15/18 09:00 Room Air 04/15/18 08:42 98.8 04/15/18 08:14 100 160/98 04/15/18 08:14 160/98 04/15/18 08:13 100 160/98 04/15/18 08:00 98.8 100 19 160/98 (118) 99 04/15/18 00:00 98.4 117 18 146/111 (123) 99 04/14/18 21:00 Room Air 04/14/18 20:00 98.6 113 18 168/111 (130) 99 04/14/18 16:00 99.1 101 20 119/67 (84) 96 04/14/18 14:45 Room Air 04/14/18 14:37 98.9 89 22 128/89 100 Room Air Intake and Output 04/14/18 04/15/18 18:59 06:59 Intake Total 400 ml 500 ml Balance 400 ml 500 ml Intake Oral 400 ml 500 ml # Voids 1 # Bowel Movements 1 Laboratory Tests 04/15/18 09:20: White Blood Count 9.1#, Red Blood Count 3.92L, Hemoglobin 10.9L, Hematocrit 33.5L, Mean Corpuscular Volume 85, Mean Corpuscular Hemoglobin 27.9, Mean Corpuscular Hemoglobin Concent 32.6, Red Cell Distribution Width 12.3, Platelet Count 401, Mean Platelet Volume 4.6L, Neutrophils (%) (Auto) , Lymphocytes (%) ( Auto) , Monocytes (%) (Auto) , Eosinophils (%) (Auto) , Basophils (%) (Auto) , Differential Total Cells Counted 100, Neutrophils % (Manual) 85H, Lymphocytes % (Manual) 12L, Monocytes % (Manual) 2, Eosinophils % (Manual) 0, Basophils % ( Manual) 1, Band Neutrophils 0, Platelet Estimate Adequate, Platelet Morphology Normal, Red Blood Cell Morphology Normal, Sodium Level 138, Potassium Level 4.5# , Chloride Level 104, Carbon Dioxide Level 24, Anion Gap 10, Blood Urea Nitrogen 17, Creatinine 1.0#, Estimat Glomerular Filtration Rate > 60, Glucose Level 199#H, Calcium Level 9.7#, Total Bilirubin 0.1L, Aspartate Amino Transf ( AST/SGOT) 24, Alanine Aminotransferase (ALT/SGPT) 50, Alkaline Phosphatase 250H , Total Protein 8.8#H, Albumin 3.5, Globulin 5.3, Albumin/Globulin Ratio 0.7L, Triglycerides Level 37, Cholesterol Level 207H, LDL Cholesterol 87, HDL Cholesterol 109H, Cholesterol/HDL Ratio 1.9L, Thyroid Stimulating Hormone (TSH) 0.294L Height (Feet): 5 Height (Inches): 3.00 Weight (Pounds): 170 Objective GENERAL: Alert, awake, and oriented x3. NECK: Range of motion is full in all directions. LUNGS: Clear. HEART: Regular. ABDOMEN: Soft Nontender. EXTREMITIES: No cyanosis. No clubbing. No edema. Tal Hewitt Apr 15, 2018 14:11
[2018-04-15 16:00] VITALS: BP 134/82
[2018-04-15 20:00] VITALS: BP 139/84
[2018-04-15] MEDS: Dyna-Hex 2% Top Sol 2oz TOPIC SCH (22:35)
[2018-04-16] VITALS: BP 128/85
[2018-04-16] MEDS: Solu-MEDROL 125mg Inj IVP SCH ×2 (02:23→06:36)
[2018-04-16 04:00] VITALS: BP 122/68
[2018-04-16] MEDS: MS Contin 15mg tab ORAL SCH ×3 (06:30→22:30)
[2018-04-16] MEDS: DiphenhydrAMINE 50mg/ml Inj IVP PRN ×2 (06:36→20:48)
[2018-04-16 07:28] LABS: HEMATOCRIT 31.2 % (37.0-47.0); HEMOGLOBIN 10.1 G/DL (12.0-16.0); MEAN CORPUSCULAR VOLUME 88 FL (80-99); PLATELET COUNT 362 K/UL (150-450); RED BLOOD COUNT 3.56 M/UL (4.20-5.40); RED CELL DISTRIBUTION WIDTH 13.2 % (11.6-14.8); WHITE BLOOD COUNT 11.8 K/UL (4.8-10.8)
[2018-04-16 07:39] LABS: ANION GAP 7 mmol/L (5-15); BLOOD UREA NITROGEN 21 mg/dL (7-18); CALCIUM 8.9 MG/DL (8.5-10.1); CARBON DIOXIDE 27 MMOL/L (21-32); CHLORIDE 106 MMOL/L (98-107); CREATININE 0.9 MG/DL (0.55-1.30); POTASSIUM 4.4 MMOL/L (3.5-5.1); SODIUM 140 MMOL/L (136-145)
[2018-04-16 08:00] VITALS: BP 126/75
[2018-04-16] MEDS: Cyclobenzaprine 10mg Tab ORAL SCH ×3 (08:32→17:29)
[2018-04-16] MEDS: Metoprolol Succinate XL 50mg tab ORAL SCH (08:32)
[2018-04-16] MEDS: Losartan 50mg tab ORAL SCH (08:33)
[2018-04-16] MEDS: DULoxetine 30mg cap ORAL SCH (08:33)
--- NOTE | 2018-04-16 08:39 | General Progress Note ---
Assessment/Plan Problem List: (1) Cellulitis ICD Codes: L03.90 - Cellulitis, unspecified SNOMED: 771232614 (2) HTN (hypertension) ICD Codes: I10 - Essential (primary) hypertension SNOMED: 63847218 (3) Dermatitis ICD Codes: L30.9 - Dermatitis, unspecified SNOMED: 50085254 (4) Intractable back pain ICD Codes: M54.9 - Dorsalgia, unspecified SNOMED: 683766055 Status: stable, progressing Assessment/Plan ot pt diet wound care pain control abx cbc bmp am Subjective Constitutional: Reports: weakness Allergies: Coded Allergies: MORPHINE (Verified Allergy, Mild, 04/14/18) per pt only slight itchness and resolved by benadryl. toleated dilaudid. CEFAZOLIN (Verified Allergy, Unknown, 04/15/18) IRON (Verified Allergy, Unknown, Rash, 08/09/17) had nausea, vomiting and rashes METHADONE (Verified Allergy, Unknown, 06/04/17) PENICILLINS (Verified Allergy, Unknown, 04/15/18) PREGABALIN (Verified Allergy, Unknown, 06/04/17) All Systems: reviewed and negative except above Subjective sl general itch Objective Last 24 Hour Vital Signs Date Time Temp Pulse Resp B/P (MAP) Pulse Ox O2 Delivery O2 Flow Rate FiO2 04/16/18 08:33 126/75 04/16/18 08:32 62 126/75 04/16/18 08:31 62 126/75 04/16/18 08:00 97.0 62 20 126/75 (92) 100 04/16/18 07:07 97.0 04/16/18 07:07 97.0 04/16/18 04:00 97.3 68 20 122/68 (86) 95 04/16/18 00:00 98.0 70 19 128/85 (99) 97 04/15/18 21:00 Room Air 04/15/18 20:00 98.4 86 18 139/84 (102) 97 04/15/18 17:51 98.1 04/15/18 16:00 98.1 79 17 134/82 (99) 95 04/15/18 12:00 98.1 84 18 144/103 (117) 100 04/15/18 09:00 Room Air Intake and Output 04/15/18 04/16/18 19:00 07:00 Intake Total 550 ml 930 ml Balance 550 ml 930 ml Intake Oral 930 ml Other 550 ml # Voids 3 4 Laboratory Tests 04/15/18 09:20: White Blood Count 9.1#, Red Blood Count 3.92L, Hemoglobin 10.9L, Hematocrit 33.5L, Mean Corpuscular Volume 85, Mean Corpuscular Hemoglobin 27.9, Mean Corpuscular Hemoglobin Concent 32.6, Red Cell Distribution Width 12.3, Platelet Count 401, Mean Platelet Volume 4.6L, Neutrophils (%) (Auto) , Lymphocytes (%) ( Auto) , Monocytes (%) (Auto) , Eosinophils (%) (Auto) , Basophils (%) (Auto) , Differential Total Cells Counted 100, Neutrophils % (Manual) 85H, Lymphocytes % (Manual) 12L, Monocytes % (Manual) 2, Eosinophils % (Manual) 0, Basophils % ( Manual) 1, Band Neutrophils 0, Platelet Estimate Adequate, Platelet Morphology Normal, Red Blood Cell Morphology Normal, Sodium Level 138, Potassium Level 4.5# , Chloride Level 104, Carbon Dioxide Level 24, Anion Gap 10, Blood Urea Nitrogen 17, Creatinine 1.0#, Estimat Glomerular Filtration Rate > 60, Glucose Level 199#H, Calcium Level 9.7#, Total Bilirubin 0.1L, Aspartate Amino Transf ( AST/SGOT) 24, Alanine Aminotransferase (ALT/SGPT) 50, Alkaline Phosphatase 250H , Total Protein 8.8#H, Albumin 3.5, Globulin 5.3, Albumin/Globulin Ratio 0.7L, Triglycerides Level 37, Cholesterol Level 207H, LDL Cholesterol 87, HDL Cholesterol 109H, Cholesterol/HDL Ratio 1.9L, Thyroid Stimulating Hormone (TSH) 0.294L 04/16/18 06:00: White Blood Count 11.8H, Red Blood Count 3.56L, Hemoglobin 10.1L, Hematocrit 31.2L, Mean Corpuscular Volume 88, Mean Corpuscular Hemoglobin 28.2, Mean Corpuscular Hemoglobin Concent 32.2, Red Cell Distribution Width 13.2, Platelet Count 362, Mean Platelet Volume 4.8L, Neutrophils (%) (Auto) , Lymphocytes (%) ( Auto) , Monocytes (%) (Auto) , Eosinophils (%) (Auto) , Basophils (%) (Auto) , Differential Total Cells Counted 100, Neutrophils % (Manual) 89H, Lymphocytes % (Manual) 9L, Monocytes % (Manual) 2, Eosinophils % (Manual) 0, Basophils % ( Manual) 0, Band Neutrophils 0, Platelet Estimate Adequate, Platelet Morphology Normal, Sodium Level 140, Potassium Level 4.4, Chloride Level 106, Carbon Dioxide Level 27, Anion Gap 7, Blood Urea Nitrogen 21H, Creatinine 0.9, Estimat Glomerular Filtration Rate > 60, Glucose Level 250H, Calcium Level 8.9, Hypochromasia 1+, Rapid Plasma Reagin [Pending], HIV (1&2) Antibody Rapid Negative Height (Feet): 5 Height (Inches): 3.00 Weight (Pounds): 170 General Appearance: alert EENT: normal ENT inspection Neck: normal alignment Cardiovascular: normal peripheral pulses, normal rate, regular rhythm Respiratory/Chest: chest wall non-tender, lungs clear, normal breath sounds Abdomen: normal bowel sounds, non tender, soft Extremities: normal inspection Edema: no edema noted Arm (L), no edema noted Arm (R), no edema noted Leg (L), no edema noted Leg (R), no edema noted Pedal (L), no edema noted Pedal (R), no edema noted Generalized Neurologic: responsive, motor weakness Skin: normal pigmentation, warm/dry Objective patchy dark rash neck area and below b/ breast Ernesto Magallon DO Apr 16, 2018 08:39
--- NOTE | 2018-04-16 08:47 | Pulmonology Progress Note ---
Assessment/Plan Problems: (1) Dermatitis (2) Chronic back pain (3) HTN (hypertension) (4) Anxiety (5) Opioid dependence Assessment/Plan improving pt could be discharged with oral steroids local steroids Subjective ROS Limited/Unobtainable: No Allergies: Coded Allergies: MORPHINE (Verified Allergy, Mild, 04/14/18) per pt only slight itchness and resolved by benadryl. toleated dilaudid. CEFAZOLIN (Verified Allergy, Unknown, 04/15/18) IRON (Verified Allergy, Unknown, Rash, 08/09/17) had nausea, vomiting and rashes METHADONE (Verified Allergy, Unknown, 06/04/17) PENICILLINS (Verified Allergy, Unknown, 04/15/18) PREGABALIN (Verified Allergy, Unknown, 06/04/17) Objective Last 24 Hour Vital Signs Date Time Temp Pulse Resp B/P (MAP) Pulse Ox O2 Delivery O2 Flow Rate FiO2 04/16/18 08:33 126/75 04/16/18 08:32 62 126/75 04/16/18 08:31 62 126/75 04/16/18 08:00 97.0 62 20 126/75 (92) 100 04/16/18 07:07 97.0 04/16/18 07:07 97.0 04/16/18 04:00 97.3 68 20 122/68 (86) 95 04/16/18 00:00 98.0 70 19 128/85 (99) 97 04/15/18 21:00 Room Air 04/15/18 20:00 98.4 86 18 139/84 (102) 97 04/15/18 17:51 98.1 04/15/18 16:00 98.1 79 17 134/82 (99) 95 04/15/18 12:00 98.1 84 18 144/103 (117) 100 04/15/18 09:00 Room Air Intake and Output 04/15/18 04/16/18 19:00 07:00 Intake Total 550 ml 930 ml Balance 550 ml 930 ml Intake Oral 930 ml Other 550 ml # Voids 3 4 Objective General Appearance: WD/WN HEENT: normocephalic Respiratory/Chest: chest wall non-tender, lungs clear, normal breath sounds Cardiovascular: normal peripheral pulses, normal rate Abdomen: normal bowel sounds, soft, non tender Genitourinary: normal external genitalia Extremities: no clubbing Skin: no rash Laboratory Tests 04/15/18 09:20: White Blood Count 9.1#, Red Blood Count 3.92L, Hemoglobin 10.9L, Hematocrit 33.5L, Mean Corpuscular Volume 85, Mean Corpuscular Hemoglobin 27.9, Mean Corpuscular Hemoglobin Concent 32.6, Red Cell Distribution Width 12.3, Platelet Count 401, Mean Platelet Volume 4.6L, Neutrophils (%) (Auto) , Lymphocytes (%) ( Auto) , Monocytes (%) (Auto) , Eosinophils (%) (Auto) , Basophils (%) (Auto) , Differential Total Cells Counted 100, Neutrophils % (Manual) 85H, Lymphocytes % (Manual) 12L, Monocytes % (Manual) 2, Eosinophils % (Manual) 0, Basophils % ( Manual) 1, Band Neutrophils 0, Platelet Estimate Adequate, Platelet Morphology Normal, Red Blood Cell Morphology Normal, Sodium Level 138, Potassium Level 4.5# , Chloride Level 104, Carbon Dioxide Level 24, Anion Gap 10, Blood Urea Nitrogen 17, Creatinine 1.0#, Estimat Glomerular Filtration Rate > 60, Glucose Level 199#H, Calcium Level 9.7#, Total Bilirubin 0.1L, Aspartate Amino Transf ( AST/SGOT) 24, Alanine Aminotransferase (ALT/SGPT) 50, Alkaline Phosphatase 250H , Total Protein 8.8#H, Albumin 3.5, Globulin 5.3, Albumin/Globulin Ratio 0.7L, Triglycerides Level 37, Cholesterol Level 207H, LDL Cholesterol 87, HDL Cholesterol 109H, Cholesterol/HDL Ratio 1.9L, Thyroid Stimulating Hormone (TSH) 0.294L 04/16/18 06:00: White Blood Count 11.8H, Red Blood Count 3.56L, Hemoglobin 10.1L, Hematocrit 31.2L, Mean Corpuscular Volume 88, Mean Corpuscular Hemoglobin 28.2, Mean Corpuscular Hemoglobin Concent 32.2, Red Cell Distribution Width 13.2, Platelet Count 362, Mean Platelet Volume 4.8L, Neutrophils (%) (Auto) , Lymphocytes (%) ( Auto) , Monocytes (%) (Auto) , Eosinophils (%) (Auto) , Basophils (%) (Auto) , Differential Total Cells Counted 100, Neutrophils % (Manual) 89H, Lymphocytes % (Manual) 9L, Monocytes % (Manual) 2, Eosinophils % (Manual) 0, Basophils % ( Manual) 0, Band Neutrophils 0, Platelet Estimate Adequate, Platelet Morphology Normal, Sodium Level 140, Potassium Level 4.4, Chloride Level 106, Carbon Dioxide Level 27, Anion Gap 7, Blood Urea Nitrogen 21H, Creatinine 0.9, Estimat Glomerular Filtration Rate > 60, Glucose Level 250H, Calcium Level 8.9, Hypochromasia 1+, Rapid Plasma Reagin [Pending], HIV (1&2) Antibody Rapid Negative Current Medications Medications (Trade) Dose Ordered Sig/Danni Route PRN Reason Start Time Stop Time Status Last Admin Dose Admin Acetaminophen (Tylenol) 650 mg Q4H PRN ORAL fever 04/14/18 13:30 05/14/18 13:29 Acetaminophen/ Hydrocodone Bitart ([place] 10) 1 tab Q4H PRN ORAL moderate pain 04/14/18 14:45 04/21/18 14:44 Al Hydroxide/Mg Hydroxide (Mylanta II) 30 ml Q6H PRN ORAL dyspepsia 04/14/18 13:30 05/14/18 13:29 Amitriptyline HCl (Elavil) 25 mg BEDTIME ORAL 04/14/18 21:00 05/14/18 20:59 04/15/18 22:35 Amlodipine Besylate (Norvasc) 10 mg DAILY ORAL 04/15/18 09:00 05/15/18 08:59 04/16/18 08:31 Chlorhexidine Gluconate (Margot-Hex 2%) 1 applic DAILY@1999 TOPIC 04/14/18 20:00 05/14/18 19:59 04/15/18 22:35 Clonazepam (KlonoPIN) 1 mg Q6H ORAL 04/14/18 13:30 04/21/18 13:29 04/16/18 08:32 Cyclobenzaprine HCl (Flexeril) 10 mg THREE TIMES A DAY ORAL 04/14/18 14:45 05/14/18 14:44 04/16/18 08:32 Dextrose (Dextrose 50%) 25 ml STAT PRN IV Hypoglycemia 04/14/18 13:30 05/14/18 13:29 Dextrose (Dextrose 50%) 50 ml STAT PRN IV Hypoglycemia 04/14/18 13:45 05/14/18 13:44 Diazepam (Valium) 4 mg Q4HR PRN ORAL Muscle Spasm 04/14/18 13:30 04/21/18 13:29 04/16/18 02:23 Diphenhydramine HCl (Benadryl) 50 mg Q6H PRN IVP Itching 04/14/18 22:15 05/14/18 22:14 04/16/18 06:36 Duloxetine HCl (Cymbalta) 30 mg DAILY ORAL 04/15/18 09:00 05/15/18 08:59 04/16/18 08:33 Gabapentin (Neurontin) 300 mg THREE TIMES A DAY ORAL 04/14/18 18:00 05/14/18 17:59 04/16/18 08:33 Hydromorphone HCl (Dilaudid) 2 mg Q4H PRN IVP severe pain 04/14/18 14:45 04/21/18 14:44 04/16/18 06:37 Lorazepam (Ativan 2mg/ml 1ml) 0.5 mg Q4H PRN IV For Anxiety 04/14/18 13:30 04/21/18 13:29 04/14/18 18:22 Losartan Potassium (Cozaar) 50 mg DAILY ORAL 04/15/18 09:00 05/15/18 08:59 04/16/18 08:33 Methylprednisolone Sodium Succinate (Solu-MEDROL) 60 mg Q6HR IVP 04/15/18 00:00 05/15/18 00:00 04/16/18 06:36 Metoprolol Succinate (Toprol XL) 50 mg DAILY ORAL 04/15/18 09:00 05/15/18 08:59 04/16/18 08:32 Morphine Sulfate (MS Contin) 30 mg Q8H ORAL 04/15/18 14:30 04/22/18 14:29 04/15/18 17:21 Ondansetron HCl (Zofran) 4 mg Q6H PRN IVP Nausea & Vomiting 04/14/18 13:30 05/14/18 13:29 Polyethylene Glycol (Miralax) 17 gm HSPRN PRN ORAL Constipation 04/14/18 13:30 05/14/18 13:29 Zolpidem Tartrate (Ambien) 5 mg HSPRN PRN ORAL Insomnia 04/14/18 13:30 04/21/18 13:29 Adam Tom MD Apr 16, 2018 08:47
[2018-04-16] MEDS ORDERED: KENALOG 0.025%15 GM APPLIC (08:51)
--- NOTE | 2018-04-16 09:23 | Infectious Diseases Prog Note ---
Assessment/Plan Assessment/Plan Assessment: Rash in torso/face- likely allergic rash to Amoxicillin; imporving Recent spinal fusion 02/25 w/ revision 03/15, concern for surgical site infx and ts 2 wks of PO Cipro and Amoxicillin- at present no signs of infection -I spoke with outside Infectious Disease Physician (Dr Sonu Morales p. ) and there was no concern for OM, epidural abscess or deeper infection. her cx were actually negative and they wanted to do only a short course of antibiotics Afebrile No leukocytosis -u/a n eg HTN Anxiety spinal cord injury s/p surgery 2009 chronic back pain/cauda equina syndrome Plan: -Continue to monitor off abx -f/u cx -Monitor CBC/CMP, temperatures -wound care -aspiration precautions Subjective Allergies: Coded Allergies: MORPHINE (Verified Allergy, Mild, 04/14/18) per pt only slight itchness and resolved by benadryl. toleated dilaudid. CEFAZOLIN (Verified Allergy, Unknown, 04/15/18) IRON (Verified Allergy, Unknown, Rash, 08/09/17) had nausea, vomiting and rashes METHADONE (Verified Allergy, Unknown, 06/04/17) PENICILLINS (Verified Allergy, Unknown, 04/15/18) PREGABALIN (Verified Allergy, Unknown, 06/04/17) Subjective Afebrile Objective Vital Signs Last 24 Hour Vital Signs Date Time Temp Pulse Resp B/P (MAP) Pulse Ox O2 Delivery O2 Flow Rate FiO2 04/16/18 08:33 126/75 04/16/18 08:32 62 126/75 04/16/18 08:31 62 126/75 04/16/18 08:00 97.0 62 20 126/75 (92) 100 04/16/18 07:07 97.0 04/16/18 07:07 97.0 04/16/18 04:00 97.3 68 20 122/68 (86) 95 04/16/18 00:00 98.0 70 19 128/85 (99) 97 04/15/18 21:00 Room Air 04/15/18 20:00 98.4 86 18 139/84 (102) 97 04/15/18 17:51 98.1 04/15/18 16:00 98.1 79 17 134/82 (99) 95 04/15/18 12:00 98.1 84 18 144/103 (117) 100 Height (Feet): 5 Height (Inches): 3.00 Weight (Pounds): 170 HEENT: mucous membranes moist Respiratory/Chest: no respiratory distress Cardiovascular: regularly irregular Abdomen: no organomegaly Laboratory Tests Test 04/16/18 06:00 White Blood Count 11.8 K/UL (4.8-10.8) H Red Blood Count 3.56 M/UL (4.20-5.40) L Hemoglobin 10.1 G/DL (12.0-16.0) L Hematocrit 31.2 % (37.0-47.0) L Mean Corpuscular Volume 88 FL (80-99) Mean Corpuscular Hemoglobin 28.2 PG (27.0-31.0) Mean Corpuscular Hemoglobin Concent 32.2 G/DL (32.0-36.0) Red Cell Distribution Width 13.2 % (11.6-14.8) Platelet Count 362 K/UL (150-450) Mean Platelet Volume 4.8 FL (6.5-10.1) L Neutrophils (%) (Auto) % (45.0-75.0) Lymphocytes (%) (Auto) % (20.0-45.0) Monocytes (%) (Auto) % (1.0-10.0) Eosinophils (%) (Auto) % (0.0-3.0) Basophils (%) (Auto) % (0.0-2.0) Differential Total Cells Counted 100 Neutrophils % (Manual) 89 % (45-75) H Lymphocytes % (Manual) 9 % (20-45) L Monocytes % (Manual) 2 % (1-10) Eosinophils % (Manual) 0 % (0-3) Basophils % (Manual) 0 % (0-2) Band Neutrophils 0 % (0-8) Platelet Estimate Adequate Platelet Morphology Normal Hypochromasia 1+ Sodium Level 140 MMOL/L (136-145) Potassium Level 4.4 MMOL/L (3.5-5.1) Chloride Level 106 MMOL/L (98-107) Carbon Dioxide Level 27 MMOL/L (21-32) Anion Gap 7 mmol/L (5-15) Blood Urea Nitrogen 21 mg/dL (7-18) H Creatinine 0.9 MG/DL (0.55-1.30) Estimat Glomerular Filtration Rate > 60 mL/min (>60) Glucose Level 250 MG/DL (74-106) H Calcium Level 8.9 MG/DL (8.5-10.1) Rapid Plasma Reagin Pending HIV (1&2) Antibody Rapid Negative (NEGATIVE) Current Medications Medications (Trade) Dose Ordered Sig/Danni Route PRN Reason Start Time Stop Time Status Last Admin Dose Admin Acetaminophen (Tylenol) 650 mg Q4H PRN ORAL fever 04/14/18 13:30 05/14/18 13:29 Acetaminophen/ Hydrocodone Bitart ([place] 10) 1 tab Q4H PRN ORAL moderate pain 04/14/18 14:45 04/21/18 14:44 Al Hydroxide/Mg Hydroxide (Mylanta II) 30 ml Q6H PRN ORAL dyspepsia 04/14/18 13:30 05/14/18 13:29 Amitriptyline HCl (Elavil) 25 mg BEDTIME ORAL 04/14/18 21:00 05/14/18 20:59 04/15/18 22:35 Amlodipine Besylate (Norvasc) 10 mg DAILY ORAL 04/15/18 09:00 05/15/18 08:59 04/16/18 08:31 Chlorhexidine Gluconate (Margot-Hex 2%) 1 applic DAILY@1999 TOPIC 04/14/18 20:00 05/14/18 19:59 04/15/18 22:35 Clonazepam (KlonoPIN) 1 mg Q6H ORAL 04/14/18 13:30 04/21/18 13:29 04/16/18 08:32 Cyclobenzaprine HCl (Flexeril) 10 mg THREE TIMES A DAY ORAL 04/14/18 14:45 05/14/18 14:44 04/16/18 08:32 Dextrose (Dextrose 50%) 25 ml STAT PRN IV Hypoglycemia 04/14/18 13:30 05/14/18 13:29 Dextrose (Dextrose 50%) 50 ml STAT PRN IV Hypoglycemia 04/14/18 13:45 05/14/18 13:44 Diazepam (Valium) 4 mg Q4HR PRN ORAL Muscle Spasm 04/14/18 13:30 04/21/18 13:29 04/16/18 02:23 Diphenhydramine HCl (Benadryl) 50 mg Q6H PRN IVP Itching 04/14/18 22:15 05/14/18 22:14 04/16/18 06:36 Duloxetine HCl (Cymbalta) 30 mg DAILY ORAL 04/15/18 09:00 05/15/18 08:59 04/16/18 08:33 Gabapentin (Neurontin) 300 mg THREE TIMES A DAY ORAL 04/14/18 18:00 05/14/18 17:59 04/16/18 08:33 Hydromorphone HCl (Dilaudid) 4 mg EVERY 6 HOURS ORAL 04/16/18 12:00 04/23/18 11:59 UNV Lorazepam (Ativan 2mg/ml 1ml) 0.5 mg Q4H PRN IV For Anxiety 04/14/18 13:30 04/21/18 13:29 04/14/18 18:22 Losartan Potassium (Cozaar) 50 mg DAILY ORAL 04/15/18 09:00 05/15/18 08:59 04/16/18 08:33 Metoprolol Succinate (Toprol XL) 50 mg DAILY ORAL 04/15/18 09:00 05/15/18 08:59 04/16/18 08:32 Morphine Sulfate (MS Contin) 30 mg Q8H ORAL 04/15/18 14:30 04/22/18 14:29 04/15/18 17:21 Ondansetron HCl (Zofran) 4 mg Q6H PRN IVP Nausea & Vomiting 04/14/18 13:30 05/14/18 13:29 Polyethylene Glycol (Miralax) 17 gm HSPRN PRN ORAL Constipation 04/14/18 13:30 05/14/18 13:29 Triamcinolone (Kenalog) 1 applic THREE TIMES A DAY TOPIC 04/16/18 09:00 05/16/18 08:59 UNV Zolpidem Tartrate (Ambien) 5 mg HSPRN PRN ORAL Insomnia 04/14/18 13:30 04/21/18 13:29 Enrico Michel MD Apr 16, 2018 09:23
[2018-04-16] MEDS: NovoLOG Insulin Flexpen SUBQ SCH ×3 (11:30→20:45)
[2018-04-16 12:00] VITALS: BP 145/107
[2018-04-16] MEDS: Triamcinolone 0.1% oint TOPIC SCH ×2 (13:00→17:30)
[2018-04-16 16:00] VITALS: BP 154/84
--- NOTE | 2018-04-16 17:30 | Progress Note ---
DATE: 04/16/2018 SUBJECTIVE: The patient is a patient who has dermatitis. She is a 53-year-old female patient. She has dermatitis. She has confusion, disorganized thought process, poor cognition, worsened by stress of her medical illness. Her cognition has declined below the baseline. That is why, her attending physician has requested daily psychiatric consultation. She has dermatitis which has caused increased depression and anxiety. MENTAL STATUS EXAMINATION: A 53-year-old female. Appearance is disheveled. Attitude, irritable and agitated. Affect, guarded and restricted. Intellect poor. Mood, depressed and anxious. Motor activity, psychomotor agitation. Attention span is poor. Orientation x2. Speech is pressured. Thought process, disorganized and illogical. Insight and judgment is poor. DIAGNOSIS: Major depressive disorder, mild, recurrent, without psychotic features. PLAN: Treat her with Cymbalta 30 mg daily, Klonopin 1 mg every 6 hours p.r.n. anxiety or agitation, Neurontin 300 mg three times a day. Provided with 20 minutes of cognitive behavioral therapy to help her identify automatic negative thoughts and help her to convert those negative thoughts to more positive thoughts in order to reduce depression, anxiety, and suicidality. Twenty minutes of cognitive behavioral therapy provided. Chart reviewed. Discussed with staff. Seen and assessed in her room. Amanda Crews M.D. DR: Jessie JOB#: [id number] CC:
--- NOTE | 2018-04-16 17:45 | Progress Note ---
DATE: 04/16/2018 ADDENDUM: This patient has dermatitis and cellulitis. She continued to have some confusion, some disorganized thought process, and mood lability worsened by stress of her medical illness. The patient received 20 minutes of cognitive behavioral therapy to identify automatic negative thoughts and help her to convert those negative thoughts to more positive thinking to reduce depression, anxiety, and suicidality. Chart reviewed. Discussed with staff. Amanda Crews M.D. DR: Jessie JOB#: [id number] CC:
--- NOTE | 2018-04-16 19:31 | General Progress Note ---
Assessment/Plan Assessment/Plan (1) Lumbar DDD (2) Lumbar spondylosis (4) Lumbar Herniated disc (5) Lumbar Radiculopathy (6) S/p Lumbar fusion revision Patient to be continued on Dilaudid, [place], Flexeril and Morphine ER. We will start Dilaudid 2mg IV Q4H PRN severe breakthrough pain. D/w Dr. Singh and he concurred. Subjective Date patient seen: Apr 16, 2018 Time patient seen: 07:00 - pm Allergies: Coded Allergies: MORPHINE (Verified Allergy, Mild, 04/14/18) per pt only slight itchness and resolved by benadryl. toleated dilaudid. CEFAZOLIN (Verified Allergy, Unknown, 04/15/18) IRON (Verified Allergy, Unknown, Rash, 08/09/17) had nausea, vomiting and rashes METHADONE (Verified Allergy, Unknown, 06/04/17) PENICILLINS (Verified Allergy, Unknown, 04/15/18) PREGABALIN (Verified Allergy, Unknown, 06/04/17) Subjective REVIEW OF SYSTEMS: Denies fever, chills, sweating, dizziness, drowsiness, sore throat, or change in her weight. No shortness of breath or chest pain. No nausea, vomiting, diarrhea, or blood in stool or urine. No bowel or bladder incontinence. No dysuria. She is complaining of low back pain. SUBJECTIVE: Patient is in bed and shows no signs of pain or distress. As per nurse patient has been refusing her medications. Dr. Tom has switched the Dilaudid IV to Dilaudid 4mg tabs. At this time due to her condition being chronic and there being no acute issues, she has received a few days of IV medication. It seems to be the correct decision at this time to transition the patient from Dilaudid IV to Dilaudid tablets to allow her to have an easy transition for discharge. However she has been c/o severe pain not tolerated on the Dilaudid tabs. Objective Last 24 Hour Vital Signs Date Time Temp Pulse Resp B/P (MAP) Pulse Ox O2 Delivery O2 Flow Rate FiO2 04/16/18 16:00 97.2 90 20 154/84 (107) 100 04/16/18 12:00 98.4 113 20 145/107 (120) 99 04/16/18 09:00 Room Air 04/16/18 08:33 126/75 04/16/18 08:32 62 126/75 04/16/18 08:31 62 126/75 04/16/18 08:00 97.0 62 20 126/75 (92) 100 04/16/18 07:07 97.0 04/16/18 07:07 97.0 04/16/18 04:00 97.3 68 20 122/68 (86) 95 04/16/18 00:00 98.0 70 19 128/85 (99) 97 04/15/18 21:00 Room Air 04/15/18 20:00 98.4 86 18 139/84 (102) 97 Intake and Output 04/15/18 04/16/18 19:00 07:00 Intake Total 550 ml 930 ml Balance 550 ml 930 ml Intake Oral 930 ml Other 550 ml # Voids 3 4 Laboratory Tests 04/16/18 06:00: White Blood Count 11.8H, Red Blood Count 3.56L, Hemoglobin 10.1L, Hematocrit 31.2L, Mean Corpuscular Volume 88, Mean Corpuscular Hemoglobin 28.2, Mean Corpuscular Hemoglobin Concent 32.2, Red Cell Distribution Width 13.2, Platelet Count 362, Mean Platelet Volume 4.8L, Neutrophils (%) (Auto) , Lymphocytes (%) ( Auto) , Monocytes (%) (Auto) , Eosinophils (%) (Auto) , Basophils (%) (Auto) , Differential Total Cells Counted 100, Neutrophils % (Manual) 89H, Lymphocytes % (Manual) 9L, Monocytes % (Manual) 2, Eosinophils % (Manual) 0, Basophils % ( Manual) 0, Band Neutrophils 0, Platelet Estimate Adequate, Platelet Morphology Normal, Hypochromasia 1+, Sodium Level 140, Potassium Level 4.4, Chloride Level 106, Carbon Dioxide Level 27, Anion Gap 7, Blood Urea Nitrogen 21H, Creatinine 0.9, Estimat Glomerular Filtration Rate > 60, Glucose Level 250H, Calcium Level 8.9, Rapid Plasma Reagin [Pending], HIV (1&2) Antibody Rapid Negative Height (Feet): 5 Height (Inches): 3.00 Weight (Pounds): 170 Objective GENERAL: Alert, awake, and oriented x3. NECK: Range of motion is full in all directions. LUNGS: Clear. HEART: Regular. ABDOMEN: Soft Nontender. EXTREMITIES: No cyanosis. No clubbing. No edema. Tal Hewitt Apr 16, 2018 19:31
[2018-04-16 20:00] VITALS: BP 135/76
[2018-04-16] MEDS: Dyna-Hex 2% Top Sol 2oz TOPIC SCH (20:37)
[2018-04-17] VITALS: BP 128/79
[2018-04-17] MEDS: HYDROmorphone 4mg tab ORAL PRN ×3 (01:11→09:30)
--- NOTE | 2018-04-17 03:00 | Consultation ---
DATE OF CONSULTATION: 04/16/2018 NOTE: "POOR AUDIO QUALITY" ENDOCRINOLOGY CONSULTATION CONSULTING PHYSICIAN: Bill Wong M.D. REFERRING PHYSICIAN: Ernesto Magallon D.O. REASON FOR CONSULTATION: Diabetes management. HISTORY OF PRESENT ILLNESS: The patient is a 53-year-old female presented to the hospital with diffuse large rash on her chest and neck. Bilaterally, the rash is present under her breasts and given Benadryl without improvement. Now, the patient is on antibiotic. The patient was admitted for back surgery at [facility] a month ago. So, the primary care is Dr. Ernesto Magallon for evaluation of shortness of breath with swelling of her legs. The patient developed hyperglycemia. Thus, Endocrinology was consulted for hyperglycemia. ALLERGIES TO MEDICATIONS: 1. Iron. 2. Methadone. 3. Morphine. 4. Lyrica. PAST MEDICAL HISTORY: 1. Anxiety. 2. Hypertension. 3. Chronic back pain. 4. Muscle spasm. 5. Cauda equina syndrome. PAST SURGICAL HISTORY: Spinal surgery. MEDICATIONS: Reviewed and reconciled. The patient was given IV Solu-Medrol. SOCIAL HISTORY: Positive for smoking. No alcohol or drug use. FAMILY HISTORY: Noncontributory. PHYSICAL EXAMINATION: GENERAL: She is alert. VITAL SIGNS: Blood pressure is 145/54, pulse of 80, temperature 98.6 degrees, and respiratory rate 18. HEENT: Pupils are equal and reactive to light. Sclerae anicteric. NECK: No JVD. HEART: Regular. LUNGS: Clear. ABDOMEN: Positive bowel sounds. EXTREMITIES: No clubbing, cyanosis, or edema. LABORATORY VALUES: WBC 11.8, hemoglobin 10, hematocrit 31, and platelet count of 262,000. MCV 89. Eosinophils are normal. Sodium 140, potassium 4.4, chloride 104, bicarbonate 24, BUN 28, and creatinine 0.9. EGFR 50. Glucose 250. TSH discussed in HPI DIAGNOSES: 1. Rash. 2. GERD. 3. Hyperglycemia. 4. Abnormal TSH. PLAN: 1. Hyperglycemia steroid induced. We will start the patient on glucose monitoring with NovoLog insulin coverage. 2. No need for thyroid medication. Thank you, Dr. Magallon, for the courtesy of this consultation. Bill Wong M.D. DR: HECTOR JOB#: [id number] CC: SHELLEY
[2018-04-17] MEDS: DiphenhydrAMINE 50mg/ml Inj IVP PRN ×2 (03:12→09:12)
[2018-04-17 04:00] VITALS: BP 140/88
[2018-04-17] MEDS: NovoLOG Insulin Flexpen SUBQ SCH ×2 (06:13→11:30)
[2018-04-17] MEDS: MS Contin 15mg tab ORAL SCH ×2 (06:30→14:30)
[2018-04-17 08:00] VITALS: BP 117/86
[2018-04-17 08:09] LABS: EOSINOPHILS % (AUTO) 0.2 % (0.0-3.0); HEMOGLOBIN 10.1 G/DL (12.0-16.0); LYMPHOCYTES % (AUTO) 17.1 % (20.0-45.0); MEAN CORPUSCULAR VOLUME 87 FL (80-99); MONOCYTES % (AUTO) 6.3 % (1.0-10.0); NEUTROPHILS % (AUTO) 75.4 % (45.0-75.0); PLATELET COUNT 376 K/UL (150-450); RED BLOOD COUNT 3.58 M/UL (4.20-5.40); RED CELL DISTRIBUTION WIDTH 12.6 % (11.6-14.8); WHITE BLOOD COUNT 15.3 K/UL (4.8-10.8)
[2018-04-17 08:20] LABS: ANION GAP 7 mmol/L (5-15); BLOOD UREA NITROGEN 18 mg/dL (7-18); CALCIUM 8.8 MG/DL (8.5-10.1); CARBON DIOXIDE 30 MMOL/L (21-32); CHLORIDE 103 MMOL/L (98-107); CREATININE 0.8 MG/DL (0.55-1.30); POTASSIUM 3.6 MMOL/L (3.5-5.1); SODIUM 140 MMOL/L (136-145)
--- NOTE | 2018-04-17 08:47 | General Progress Note ---
Assessment/Plan Problem List: (1) Cellulitis ICD Codes: L03.90 - Cellulitis, unspecified SNOMED: 041050419 (2) HTN (hypertension) ICD Codes: I10 - Essential (primary) hypertension SNOMED: 94735024 (3) Dermatitis ICD Codes: L30.9 - Dermatitis, unspecified SNOMED: 01555018 (4) Intractable back pain ICD Codes: M54.9 - Dorsalgia, unspecified SNOMED: 216519189 Status: stable, progressing Assessment/Plan ot pt diet wound care pain control abx cbc bmp am dc plan Subjective Constitutional: Reports: weakness Allergies: Coded Allergies: MORPHINE (Verified Allergy, Mild, 04/14/18) per pt only slight itchness and resolved by benadryl. toleated dilaudid. CEFAZOLIN (Verified Allergy, Unknown, 04/15/18) IRON (Verified Allergy, Unknown, Rash, 08/09/17) had nausea, vomiting and rashes METHADONE (Verified Allergy, Unknown, 06/04/17) PENICILLINS (Verified Allergy, Unknown, 04/15/18) PREGABALIN (Verified Allergy, Unknown, 06/04/17) All Systems: reviewed and negative except above Subjective sleepy in bed Objective Last 24 Hour Vital Signs Date Time Temp Pulse Resp B/P (MAP) Pulse Ox O2 Delivery O2 Flow Rate FiO2 04/17/18 04:00 97.2 97 19 140/88 (105) 98 04/17/18 00:00 98.0 80 19 128/79 (95) 100 04/16/18 21:00 Room Air 04/16/18 20:00 98.8 92 19 135/76 (95) 98 04/16/18 16:00 97.2 90 20 154/84 (107) 100 04/16/18 12:00 98.4 113 20 145/107 (120) 99 04/16/18 09:00 Room Air Intake and Output 04/16/18 04/17/18 19:00 07:00 Intake Total 840 ml 450 ml Balance 840 ml 450 ml Intake Oral 840 ml 450 ml # Voids 3 2 Laboratory Tests 04/17/18 06:15: White Blood Count 15.3H, Red Blood Count 3.58L, Hemoglobin 10.1L, Hematocrit 31.0L, Mean Corpuscular Volume 87, Mean Corpuscular Hemoglobin 28.2, Mean Corpuscular Hemoglobin Concent 32.6, Red Cell Distribution Width 12.6, Platelet Count 376, Mean Platelet Volume 4.9L, Neutrophils (%) (Auto) 75.4H, Lymphocytes (%) (Auto) 17.1L, Monocytes (%) (Auto) 6.3, Eosinophils (%) (Auto) 0.2, Basophils (%) (Auto) 1.0, Sodium Level 140, Potassium Level 3.6, Chloride Level 103, Carbon Dioxide Level 30, Anion Gap 7, Blood Urea Nitrogen 18, Creatinine 0.8, Estimat Glomerular Filtration Rate > 60, Glucose Level 149#H, Calcium Level 8.8 Height (Feet): 5 Height (Inches): 3.00 Weight (Pounds): 170 General Appearance: lethargic EENT: normal ENT inspection Neck: normal alignment Cardiovascular: normal peripheral pulses, normal rate, regular rhythm Respiratory/Chest: chest wall non-tender, lungs clear, normal breath sounds Abdomen: normal bowel sounds, non tender, soft Extremities: normal inspection Edema: no edema noted Arm (L), no edema noted Arm (R), no edema noted Leg (L), no edema noted Leg (R), no edema noted Pedal (L), no edema noted Pedal (R), no edema noted Generalized Neurologic: motor weakness Skin: normal pigmentation, warm/dry Objective patchy dark rash neck area and below b/ breast Ernesto Magaloln DO Apr 17, 2018 08:47
[2018-04-17] MEDS: Losartan 50mg tab ORAL SCH (09:00)
[2018-04-17] MEDS: Metoprolol Succinate XL 50mg tab ORAL SCH (09:00)
[2018-04-17] MEDS: DULoxetine 30mg cap ORAL SCH (09:00)
[2018-04-17] MEDS: Cyclobenzaprine 10mg Tab ORAL SCH ×2 (09:12→13:03)
[2018-04-17] MEDS: Triamcinolone 0.1% oint TOPIC SCH ×2 (09:31→13:03)
--- NOTE | 2018-04-17 09:59 | General Progress Note ---
Assessment/Plan Problem List: (1) Abnormal thyroid blood test ICD Codes: R79.89 - Other specified abnormal findings of blood chemistry SNOMED: 342866426, 633207997579350 (2) Steroid-induced hyperglycemia ICD Codes: R73.9 - Hyperglycemia, unspecified; T38.0X5A - Adverse effect of glucocorticoids and synthetic analogues, initial encounter SNOMED: 768067132 Assessment/Plan continue NISS ac / hs no need for thyroid medications repeat thyroid function in 2-3 weeks Subjective Allergies: Coded Allergies: MORPHINE (Verified Allergy, Mild, 04/14/18) per pt only slight itchness and resolved by benadryl. toleated dilaudid. CEFAZOLIN (Verified Allergy, Unknown, 04/15/18) IRON (Verified Allergy, Unknown, Rash, 08/09/17) had nausea, vomiting and rashes METHADONE (Verified Allergy, Unknown, 06/04/17) PENICILLINS (Verified Allergy, Unknown, 04/15/18) PREGABALIN (Verified Allergy, Unknown, 06/04/17) All Systems: reviewed and negative except above Subjective events noted Objective Last 24 Hour Vital Signs Date Time Temp Pulse Resp B/P (MAP) Pulse Ox O2 Delivery O2 Flow Rate FiO2 04/17/18 09:00 91 117/86 04/17/18 09:00 117/86 04/17/18 09:00 91 117/86 04/17/18 08:00 97.1 91 19 117/86 (96) 99 04/17/18 04:00 97.2 97 19 140/88 (105) 98 04/17/18 00:00 98.0 80 19 128/79 (95) 100 04/16/18 21:00 Room Air 04/16/18 20:00 98.8 92 19 135/76 (95) 98 04/16/18 16:00 97.2 90 20 154/84 (107) 100 04/16/18 12:00 98.4 113 20 145/107 (120) 99 Intake and Output 04/16/18 04/17/18 19:00 07:00 Intake Total 840 ml 450 ml Balance 840 ml 450 ml Intake Oral 840 ml 450 ml # Voids 3 2 Laboratory Tests 04/17/18 06:15: White Blood Count 15.3H, Red Blood Count 3.58L, Hemoglobin 10.1L, Hematocrit 31.0L, Mean Corpuscular Volume 87, Mean Corpuscular Hemoglobin 28.2, Mean Corpuscular Hemoglobin Concent 32.6, Red Cell Distribution Width 12.6, Platelet Count 376, Mean Platelet Volume 4.9L, Neutrophils (%) (Auto) 75.4H, Lymphocytes (%) (Auto) 17.1L, Monocytes (%) (Auto) 6.3, Eosinophils (%) (Auto) 0.2, Basophils (%) (Auto) 1.0, Sodium Level 140, Potassium Level 3.6, Chloride Level 103, Carbon Dioxide Level 30, Anion Gap 7, Blood Urea Nitrogen 18, Creatinine 0.8, Estimat Glomerular Filtration Rate > 60, Glucose Level 149#H, Calcium Level 8.8 Height (Feet): 5 Height (Inches): 3.00 Weight (Pounds): 170 General Appearance: no apparent distress Neck: normal alignment Cardiovascular: normal rate Respiratory/Chest: lungs clear Abdomen: normal bowel sounds Objective Current Medications Medications (Trade) Dose Ordered Sig/Danni Route PRN Reason Start Time Stop Time Status Last Admin Dose Admin Acetaminophen (Tylenol) 650 mg Q4H PRN ORAL fever 04/14/18 13:30 05/14/18 13:29 Acetaminophen/ Hydrocodone Bitart ([place] 10/325) 1 tab Q4H PRN ORAL moderate pain 04/14/18 14:45 04/21/18 14:44 Al Hydroxide/Mg Hydroxide (Mylanta II) 30 ml Q6H PRN ORAL dyspepsia 04/14/18 13:30 05/14/18 13:29 Amitriptyline HCl (Elavil) 25 mg BEDTIME ORAL 04/14/18 21:00 05/14/18 20:59 04/16/18 20:37 Amlodipine Besylate (Norvasc) 10 mg DAILY ORAL 04/15/18 09:00 05/15/18 08:59 04/16/18 08:31 Chlorhexidine Gluconate (Margot-Hex 2%) 1 applic DAILY@1999 TOPIC 04/14/18 20:00 05/14/18 19:59 04/16/18 20:37 Clonazepam (KlonoPIN) 1 mg Q6H ORAL 04/14/18 13:30 04/21/18 13:29 04/17/18 09:12 Cyclobenzaprine HCl (Flexeril) 10 mg THREE TIMES A DAY ORAL 04/14/18 14:45 05/14/18 14:44 04/17/18 09:12 Dextrose (Dextrose 50%) 25 ml Q30M PRN IV Hypoglycemia 04/16/18 09:40 05/16/18 09:39 Dextrose (Dextrose 50%) 50 ml Q30M PRN IV Hypoglycemia 04/16/18 09:39 05/16/18 09:38 Diazepam (Valium) 4 mg Q4HR PRN ORAL Muscle Spasm 04/14/18 13:30 04/21/18 13:29 04/16/18 02:23 Diphenhydramine HCl (Benadryl) 50 mg Q6H PRN IVP Itching 04/14/18 22:15 05/14/18 22:14 04/17/18 09:12 Duloxetine HCl (Cymbalta) 30 mg DAILY ORAL 04/15/18 09:00 05/15/18 08:59 04/16/18 08:33 Gabapentin (Neurontin) 300 mg THREE TIMES A DAY ORAL 04/14/18 18:00 05/14/18 17:59 04/17/18 09:12 Hydromorphone HCl (Dilaudid) 2 mg Q4H PRN IVP break through severe pain 04/16/18 19:45 04/23/18 19:44 04/17/18 06:09 Hydromorphone HCl (Dilaudid) 4 mg Q6H PRN ORAL SEVERE PAIN 04/16/18 09:39 04/23/18 09:38 04/17/18 09:30 Insulin Aspart (NovoLOG) BEFORE MEALS AND HS SUBQ 04/16/18 11:30 05/16/18 11:29 04/17/18 06:13 Lorazepam (Ativan 2mg/ml 1ml) 0.5 mg Q4H PRN IV For Anxiety 04/14/18 13:30 04/21/18 13:29 04/14/18 18:22 Losartan Potassium (Cozaar) 50 mg DAILY ORAL 04/15/18 09:00 05/15/18 08:59 04/16/18 08:33 Metoprolol Succinate (Toprol XL) 50 mg DAILY ORAL 04/15/18 09:00 1/6/19 08:59 04/16/18 08:32 Morphine Sulfate (MS Contin) 30 mg Q8H ORAL 04/15/18 14:30 04/22/18 14:29 04/15/18 17:21 Ondansetron HCl (Zofran) 4 mg Q6H PRN IVP Nausea & Vomiting 04/14/18 13:30 05/14/18 13:29 Polyethylene Glycol (Miralax) 17 gm HSPRN PRN ORAL Constipation 04/14/18 13:30 05/14/18 13:29 Triamcinolone (Kenalog) 1 applic THREE TIMES A DAY TOPIC 04/16/18 13:00 05/16/18 12:59 04/17/18 09:31 Zolpidem Tartrate (Ambien) 5 mg HSPRN PRN ORAL Insomnia 04/14/18 13:30 04/21/18 13:29 Item Value Date Time Bedside Blood Glucose 166 mg/dl H 04/17/18 0630 Bedside Blood Glucose 251 mg/dl H 04/16/18 2100 Bedside Blood Glucose 273 mg/dl H 04/16/18 1130 Bill Wong MD Apr 17, 2018 09:59
[2018-04-17 12:00] VITALS: BP 140/86
--- NOTE | 2018-04-18 03:45 | Progress Note ---
DATE: 04/17/2018 SUBJECTIVE: This is a 53-year-old female patient with dermatitis. This patient continues to have some confusion, disorganized thought process, and mood lability, worsened by the stress of her medical illness. That is why her attending physician has requested daily psychiatric consultation. She has increased anxiety and depression. MENTAL STATUS EXAMINATION: The patient is a 53-year-old female. Appearance is disheveled. Attitude, irritable and agitated. Affect, guarded and restricted. Intellect poor. Mood depressed and anxious. Motor activity, psychomotor agitation. Attention is poor. Orientation x2. Speech is pressured. Thought process, disorganized and illogical. Thought content, auditory hallucinations and paranoid delusions. Insight and judgment is poor. DIAGNOSIS: Major depressive disorder, mild, recurrent, without psychotic features. PLAN: Treated with Cymbalta 30 mg a day and Neurontin 300 mg three times a day and Klonopin 1 mg every 6 hours p.r.n. anxiety and agitation. Provided with 20 minutes of cognitive behavioral therapy to help this patient identify automatic negative thoughts, convert those negative thoughts to more positive thoughts to reduce depression, anxiety, and suicidality. Twenty minutes of cognitive behavior therapy provided to identify automatic negative thought process and help to convert this negative thought process to more positive thinking. Chart reviewed and discussed with staff. Twenty minutes of cognitive behavioral provided also to help improvement in her behavioral patterns so that she can have more adaptive behavioral pattern. Seen and assessed in her room. Chart reviewed and discussed with staff. Amanda Crews M.D. DR: SINAI JOB#: [id number] CC:
--- NOTE | 2018-04-18 11:26 | Discharge Summary ---
Discharge Summary Discharge Summary _ DATE OF ADMISSION: 04/14/2018 DATE OF DISCHARGE: 04/17/2018 REASON FOR ADMISSION: 53 years old female with past medical history of hypertension, anxiety, spinal cord injury, s/p spinal surgery in 2009 with chronic back pain, presented to emergency department with diffused rash on chest, neck and back. Patient reported 4 days of rash. No improvement with Benadryl. Denied fevers, chills. Patient had a back surgery on February 25 at [facility] ( [facility] She subsequently undergone revision on 03/15 due to concern of infection. Patient was on IV antibiotic at that time. Patient was not sure what antibiotic she was on in the hospital, but she was discharged home with oral Cipro and amoxicillin for 2 weeks. She finished amoxicillin but had 4 pills left of Cipro . Rash started after she completed amoxicillin. Upon evaluation vital signs were stable. Laboratory workup revealed no leukocytosis ,hemoglobin 9.7 hematocrit 30.6. Potassium 2.7, other electrolytes stable , glucose 85 Urinalysis revealed no evidence of UTI. Patient admitted with diagnoses of dermatitis, probably secondary to antibiotic ,chronic back pain, hypertension, anxiety ,opioid dependency. CONSULTANTS: pulmonary Dr. Tom ID specialist Dr. Michel psychiatrist Dr. Crews pain specialist Dr. Singh director of group sales Dr. Wong [facility]SE: Patient admitted and started on short pulse of steroid and antihistamine. Supportive care provided. GI prophylaxis provided Infectious disease specialist closely follow. HIV and RPR tests were nonreactive. Patient undergone treatment for 2 weeks with antibiotics. Infectious disease specialist follow up with outside infectious disease physician . There was no concern for osteomyelitis, epidural abscess or deep infection. Culture was negative, and at that time patient was given short course of antibiotics, that she completed. Patient was afebrile ,no leukocytosis . Urinalysis was negative. No evidence of infection at surgical site . Infectious disease doctor recommended to keep patient off antibiotic and monitor closely. Venous duplex revealed recanalized chronic thrombus right lower extremity in superficial femoral vein. Left leg revealed patent deep venous system. DVT prophylaxis provided. Blood pressure was managed with beta gustavo, ARB and calcium channel gustavo ,and remained stable. Pain specialist followed. Pain management provided as per pain specialist recommendations with multiply analgesics to achieve optimal pain control. Patient noted to have elevated glucose, likely due to steroid use. Video Game Engineer consult was requested. Per director of group sales, patient had steroid-induced hyperglycemia. He recommended taper steroids and use sliding scale of insulin on as needed basis only. Patient also noted to have a low TSH. Per director of group sales, no need for thyroid medication at si time. Repeat thyroid function test in 2-3 weeks. Psychiatrist follow. Psychiatrist diagnosed patient with major depressive disorder ,mild, recurrent , without psychotic feature. Psychiatric medication regimen was optimized. Supportive therapy provided. Renal parameters and electrolytes were closely monitored. Potassium replaced and stable. Hypokalemia resolved. Nephrotoxins were avoided. Bowel regimen instituted. Fall precautions maintained. Patient was working with physical and occupational therapists. Rash was improving/subsiding. Patient clinically stabilized and was ready for discharge home with home health services to follow. FINAL DIAGNOSES: Dermatitis , likely allergic rash due to amoxicillin Spinal cord injury, s/p surgery 02/25 and subsequent revision 03/15 Chronic back pain/ cauda equina syndrome Hypertension Opioid dependency Anxiety Steroid-induced hyperglycemia Abnormal thyroid blood test Lumbar DDD Lumbar spondylosis Lumbar herniated disc Lumbar radiculopathy Major depressive disorder, mild , recurrent ,without psychotic features DISCHARGE MEDICATIONS: See Medication Reconciliation list. DISCHARGE INSTRUCTIONS: Patient was discharged home with home health services. Follow up with primary care provider in one week. I have been assigned to dictate discharge summary for this account. I was not involved in the patient's management. Ness Junior NP Apr 18, 2018 11:26
--- NOTE | 2018-04-18 15:30 | Consultation ---
DATE OF CONSULTATION: 04/15/2018 NOTE: "VERY POOR AUDIO QUALITY/INCOMPREHENSIBLE" PSYCHOTHERAPY CONSULTATION PROGRESS NOTE CONSULTING PHYSICIAN: Víctor Woo PsyD. TREATING ATTENDING PHYSICIAN: Ernesto Magallon D.O. HISTORY OF PRESENT ILLNESS: This patient is a female patient. She is 53 years old. She was brought into the hospital for dermatitis. She has a long-term history of anxiety and chronic pain, and for these reasons, she was referred for psychotherapeutic services. This clinician assessed this patient. The patient states that she has muscle spasm, but she has anxiety due to her current medical condition. She states that it is uncontrolled she has rash on her body. She does not know what is . For these reasons, the patient states that she has been in the past, however, denies suicidal or homicidal thoughts of ideation. Denies any auditory or visual hallucinations. She is cooperative and communicative, however, extremely anxious. PAST MEDICAL HISTORY: Includes a history of hypertension, chronic back pain, muscle spasm, and cauda equina syndrome. ALLERGIES: The patient is allergic to morphine, methadone, iron. SUBSTANCE ABUSE HISTORY: The patient denies history of alcohol use, illicit substance use, or smoking cigarettes. PSYCHIATRIC HISTORY: She has history of anxiety, depression. SOCIAL HISTORY: The patient is a 53-year-old female patient. She states that she lives at home with her . Financially sustained through [employer]. MENTAL STATUS EXAMINATION: The patient is alert and oriented to person and place. Mood is dysphoric. Affect is blunted. Thought process is negative and catastrophic. She has poor attention and concentration. Poor insight, judgment, and impulse control. DIAGNOSIS: Generalized anxiety disorder and major depressive disorder, recurrent, moderate, without psychotic features. PLAN: This clinician assessed this patient. Víctor Woo PsyD. DR: SCOTT JOB#: [id number] CC:
== END 2018-04-17 15:15 | disposition home health service (06) | DRG 607 ==
LOC: EMR 12:13 → 4E 12:31 → EDBEDREQ 13:15 → 4E 04-15 00:23
DX: L27.1 Localized skin eruption due to drugs and medicaments taken internally (principal); G83.4 Cauda equina syndrome; F33.8 Other recurrent depressive disorders; F11.20 Opioid dependence, uncomplicated; L03.90 Cellulitis, unspecified; I82.511 Chronic embolism and thrombosis of right femoral vein; T36.0X5A Adverse effect of penicillins, initial encounter; T14.8XXD Other injury of unspecified body region, subsequent encounter; X58.XXXD Exposure to other specified factors, subsequent encounter; I10 Essential (primary) hypertension; M51.16 Intervertebral disc disorders with radiculopathy, lumbar region; M47.896 Other spondylosis, lumbar region; R73.9 Hyperglycemia, unspecified; T38.0X5A Adverse effect of glucocorticoids and synthetic analogues, initial encounter; F41.9 Anxiety disorder, unspecified; Z98.1 Arthrodesis status; Z88.6 Allergy status to analgesic agent; Z88.8 Allergy status to other drugs, medicaments and biological substances; M62.830 Muscle spasm of back; K21.9 Gastro-esophageal reflux disease without esophagitis
CPT/HCPCS: 36415; 80048; 80053; 80061; 81003; 82962; 84443; 85007; 85025; 86592; 86703; 90686; 93970; 96374; 96375; 99284; J1815; J8499

== ENCOUNTER 2018-08-10 18:06 | Inpatient (IN) | payer MEDICARE, MEDICAID ==
[~2018-08-10] VITALS: Ht 160 cm; Wt 68.0 kg
[~2018-08-10 18:06] MED LIST changes: +KENALOG 0.025%15 GM APPLIC
[2018-08-10] MEDS ORDERED: LOSARTAN POTAS100 MG ORAL (18:16)
--- NOTE | 2018-08-10 18:18 | NUR ---
ED Nurse Note: PT WHEELCHAIRED IN TO ER TODAY FROM HOME. AOX4. PT C/O LOWER BACK PAIN, 910 RADIATING TO ABDOMEN AND UPPER BILATERAL LEGS X LAST NIGHT. PT DENIES INJURY OR TRAUMA BUT BELIEVES IT IS FROM LAYING FLAT X 4 DAYS AGO FOR ANGIOGRAPHY FOR 2 STENT PLACEMENTS AT [facility]. PROCEDURE DONE BY DR. HUERTAS. OF NOTE, PT IN WHEELCHAIR DUE TO HX OF DROP FOOT.
[2018-08-10 18:21] VITALS: BP 144/76
[2018-08-10] MEDS ORDERED: LORazepam Inj 2mg/ml 1ml IV ONE (19:00)
[2018-08-10 19:20] LABS: APPEARANCE,URINE CLEAR; BILIRUBIN, URINE NEGATIVE (NEGATIVE); COLOR,URINE PALE YELLOW; GLUCOSE, URINE (UA) NEGATIVE (NEGATIVE); KETONES,URINE NEGATIVE (NEGATIVE); LEUKOCYTE ESTERASE ,URINE NEGATIVE (NEGATIVE); NITRITE,URINE NEGATIVE (NEGATIVE); PH,URINE 5 (4.5-8.0); PROTEIN,URINE 1+ (NEGATIVE); UROBILINOGEN,URINE NORMAL MG/DL (0.0-1.0)
--- NOTE | 2018-08-10 19:22 | NUR ---
ED Nurse Note: REPORT GIVEN TO CHERI ACEVEDO.
[2018-08-10] MEDS ORDERED: Hydromorphone 0.5mg/0.5ml inj IVP ONE (20:00)
[2018-08-10 20:04] LABS: BASOPHILS % (AUTO) 0.9 % (0.0-2.0); EOSINOPHILS % (AUTO) 0.6 % (0.0-3.0); HEMATOCRIT 31.2 % (37.0-47.0); MEAN CORPUSCULAR VOLUME 86 FL (80-99); MONOCYTES % (AUTO) 6.8 % (1.0-10.0); NEUTROPHILS % (AUTO) 70.7 % (45.0-75.0); PLATELET COUNT 255 K/UL (150-450); RED BLOOD COUNT 3.63 M/UL (4.20-5.40); RED CELL DISTRIBUTION WIDTH 15.9 % (11.6-14.8); WHITE BLOOD COUNT 6.7 K/UL (4.8-10.8)
[2018-08-10 20:10] LABS: ANION GAP 14 mmol/L (5-15); BLOOD UREA NITROGEN 15 mg/dL (7-18); CALCIUM 8.3 MG/DL (8.5-10.1); CARBON DIOXIDE 23 MMOL/L (21-32); CHLORIDE 106 MMOL/L (98-107); CREATININE 0.6 MG/DL (0.55-1.30); SODIUM 143 MMOL/L (136-145)
[2018-08-10 20:14] LABS: ALANINE AMINOTRANSFERASE 21 U/L (12-78); ALBUMIN 3.3 G/DL (3.4-5.0); ALBUMIN/GLOBULIN RATIO 0.9 (1.0-2.7); ALKALINE PHOSPHATASE 140 U/L (46-116); ASPARTATE AMINO TRANSFERASE 14 U/L (15-37); BILIRUBIN,TOTAL 0.3 MG/DL (0.2-1.0)
--- NOTE | 2018-08-10 21:12 | Emergency Room Report ---
History of Present Illness General Chief Complaint: Back Pain-No Injury Source: Patient Present Illness HPI 63-year-old female presents to the emergency department complaining of 10 out of 10 in severity low back pain which she describes as exacerbation of her chronic pain. Patient reports that she had to lie flat during an examination ago and she's been having pain that is been progressive ever since she has a history of cauda equina syndrome in the past she also has history of heart problems she states she is on multiple pain medications at home including Robaxin and morphine and states that medications at home are not helping. Patient denies nausea, vomiting, fevers, chills, history of cancer, night sweats or new trauma or fall. Patient denies incontinence of her urine or bowels and denies urinary retention. Pt. states that she has a Port-A-Cath for which IV pain medications are typically administered as she is a hard stick. any movement exacerbated her LBP, nothing is providing relief at this time. Allergies: Coded Allergies: MORPHINE (Verified Allergy, Mild, 04/14/18) per pt only slight itchness and resolved by benadryl. toleated dilaudid. CEFAZOLIN (Verified Allergy, Unknown, 04/15/18) IRON (Verified Allergy, Unknown, Rash, 08/09/17) had nausea, vomiting and rashes METHADONE (Verified Allergy, Unknown, 06/04/17) PENICILLINS (Verified Allergy, Unknown, 04/15/18) PREGABALIN (Verified Allergy, Unknown, 06/04/17) Patient History Past Medical History: see triage record Past Surgical History: none Pertinent Family History: none Now: No Reviewed Nursing Documentation: PMH: Agreed; PSxH: Agreed Nursing Documentation-PMH Hx Cardiac Problems: Yes Hx Hypertension: No Hx Pacemaker: No Hx Asthma: No Hx COPD: No Hx Diabetes: No Hx Cancer: No Hx Gastrointestinal Problems: No Hx Dialysis: No Hx Cerebrovascular Accident: No Hx Seizures: No Hx Spinal Cord Injury: Yes Hx Numbness: Yes Hx Neurologic Surgery: Yes - 03/2018 Spinal surgery Review of Systems All Other Systems: negative except mentioned in HPI Physical Exam Vital Signs Date Time Temp Pulse Resp B/P (MAP) Pulse Ox O2 Delivery O2 Flow Rate FiO2 08/10/18 18:11 98.2 80 19 150/77 98 Room Air Sp02 EP Interpretation: reviewed, normal General Appearance: alert, GCS 15, non-toxic, mild distress Head: normocephalic, atraumatic Eyes: bilateral eye normal inspection, bilateral eye PERRL ENT: hearing grossly normal, normal voice Neck: full range of motion Respiratory: lungs clear, normal breath sounds, speaking full sentences Cardiovascular #1: regular rate, rhythm, no edema Gastrointestinal: non tender, soft Musculoskeletal: back normal, gait/station normal - pt is ambulatory, normal range of motion, tender - TTP lumbar midline and paraspinal area Neurologic: alert, oriented x3, responsive, motor strength/tone normal, sensory intact, speech normal, grossly normal Psychiatric: judgement/insight normal Skin: normal color, no rash, warm/dry, well hydrated Medical Decision Making PA Attestation Dr. genao is my supervising Physician whom patient management has been discussed with. Diagnostic Impression: Primary Impression: Hypokalemia Additional Impression: Intractable back pain ER Course 63-year-old female presents to the emergency department complaining of 10 out of 10 in severity low back pain which she describes as exacerbation of her chronic pain. Patient reports that she had to lie flat during an examination ago and she's been having pain that is been progressive ever since she has a history of cauda equina syndrome in the past she also has history of heart problems she states she is on multiple pain medications at home including Robaxin and morphine and states that medications at home are not helping. Patient denies nausea, vomiting, fevers, chills, history of cancer, night sweats or new trauma or fall. Patient denies incontinence of her urine or bowels and denies urinary retention. Pt. states that she has a Port-A-Cath for which IV pain medications are typically administered as she is a hard stick. any movement exacerbated her LBP, nothing is providing relief at this time. PT. states she was previously tx'd for a UTI, but is not sure if it has resolved. Ddx considered: epidural abscess, fracture, sprain/strain, meningitis, spinal chord injury, sciatica, cauda equina, Pyelonephritis, renal calculi just to name a few. Vital signs reviewed and are WNL during ED visit. Pt. is afebrile with no signs of infection No new symptoms, and denies recent trauma. No saddle anesthesia noted, Pt. denies incontinence Neurovascular is intact ROM is limited due to pain * Tenderness to palpation to paraspinal muscles of the lower back with midline tenderness. *Pt. describes pain today as moderate and radiates across the lower back. ORDERS: -CBC: anemia -CMP: hypokalemia -UA: Unremarkable INTERVENTIONS: - 1mg Ativan IV ( pt. reports during exacerbations of muscle spasms and low back pain she requires Ativan and Dilaudid.) - 0.5 Dilaudid IV -60 Meq KCL PO Because this patient requires administration of multiple rounds of IV narcotic medications including medications mixed together which have a black box warning I feel that this patient needs to be admitted so this medication can be administered to her in a safe fashion and by her primary treating physician who is well versed in this patient's history and management of her symptoms. DISPOSITION: at this time pt. will be admitted to for intractable back pain. Dr. Magallon agreed to admit the pt. and to continue pt. care management. Labs Test 08/10/18 18:58 08/10/18 19:30 Urine Color Pale yellow Urine Appearance Clear Urine pH 5 (4.5-8.0) Urine Specific [place] 1.020 (1.005-1.035) Urine Protein 1+ (NEGATIVE) Urine Glucose (UA) Negative (NEGATIVE) Urine Ketones Negative (NEGATIVE) Urine Blood 3+ (NEGATIVE) Urine Nitrite Negative (NEGATIVE) Urine Bilirubin Negative (NEGATIVE) Urine Urobilinogen Normal MG/DL (0.0-1.0) Urine Leukocyte Esterase Negative (NEGATIVE) Urine RBC 2-4 /HPF (0 - 2) Urine WBC 0-2 /HPF (0 - 2) Urine Squamous Epithelial Cells Few /LPF (NONE/OCC) Urine Bacteria Few /HPF (NONE) White Blood Count 6.7 K/UL (4.8-10.8) Red Blood Count 3.63 M/UL (4.20-5.40) Hemoglobin 10.0 G/DL (12.0-16.0) Hematocrit 31.2 % (37.0-47.0) Mean Corpuscular Volume 86 FL (80-99) Mean Corpuscular Hemoglobin 27.5 PG (27.0-31.0) Mean Corpuscular Hemoglobin Concent 31.9 G/DL (32.0-36.0) Red Cell Distribution Width 15.9 % (11.6-14.8) Platelet Count 255 K/UL (150-450) Mean Platelet Volume 5.3 FL (6.5-10.1) Neutrophils (%) (Auto) 70.7 % (45.0-75.0) Lymphocytes (%) (Auto) 21.0 % (20.0-45.0) Monocytes (%) (Auto) 6.8 % (1.0-10.0) Eosinophils (%) (Auto) 0.6 % (0.0-3.0) Basophils (%) (Auto) 0.9 % (0.0-2.0) Sodium Level 143 MMOL/L (136-145) Potassium Level 3.0 MMOL/L (3.5-5.1) Chloride Level 106 MMOL/L (98-107) Carbon Dioxide Level 23 MMOL/L (21-32) Anion Gap 14 mmol/L (5-15) Blood Urea Nitrogen 15 mg/dL (7-18) Creatinine 0.6 MG/DL (0.55-1.30) Estimat Glomerular Filtration Rate > 60 mL/min (>60) Glucose Level 85 MG/DL (74-106) Calcium Level 8.3 MG/DL (8.5-10.1) Total Bilirubin 0.3 MG/DL (0.2-1.0) Aspartate Amino Transf (AST/SGOT) 14 U/L (15-37) Alanine Aminotransferase (ALT/SGPT) 21 U/L (12-78) Alkaline Phosphatase 140 U/L (46-116) Total Protein 6.9 G/DL (6.4-8.2) Albumin 3.3 G/DL (3.4-5.0) Globulin 3.6 g/dL Albumin/Globulin Ratio 0.9 (1.0-2.7) Last Vital Signs Date Time Temp Pulse Resp B/P (MAP) Pulse Ox O2 Delivery O2 Flow Rate FiO2 08/10/18 18:21 98.4 76 18 144/76 99 Room Air Disposition: ADMITTED INPATIENT Condition: Nellie Lopez Aug 10, 2018 21:12
--- NOTE | 2018-08-10 21:26 | NUR ---
ED Nurse Note: ATTEMPTED TO GIVE TELEPHONE REPORT,. MAUREEN RN NOT READY
--- NOTE | 2018-08-10 21:39 | NUR ---
ED Nurse Note: telephone report given to rain calle
--- NOTE | 2018-08-10 21:47 | NUR ---
ED Nurse Note: PT HAS BEEN TRASNFERRED TO [facility] [place]. PT VSS AT THE MOMENT. PT EXHIBITS SOME SIGNS OF PAIN BUT THAT IS REASION FOR ADMISSION. PT TOOK WHEELCHAIR. ALL OTHER BELONGINGS SENT WITH PT.
[2018-08-10] MEDS ORDERED: MS Contin 15mg tab ORAL PRN (22:30)
--- NOTE | 2018-08-10 22:54 | NUR ---
NURSE NOTES: Received report from ED nurse Naz. Patient is aaox4. Pain 10/10 lower back. Dilaudid IVP given. Porticath right upper chest noted. Ambulatory with assistance. Gait unsteady. Orders placed by Dr. Tom. Oriented to room. Needs attended to. Bed low, call light within reach. Addendum: 08/10/18 at 2302 by SAVI BOWERS RN vss
[2018-08-10] MEDS: HydrALAZINE 25mg tab ORAL SCH (23:32)
[2018-08-10 23:40] VITALS: BP 142/69
[2018-08-11 04:00] VITALS: BP 133/93
[2018-08-11] MEDS: HydrALAZINE 25mg tab ORAL SCH ×3 (05:20→17:32)
[2018-08-11] MEDS ORDERED: LORazepam 1mg tab ORAL PRN (05:45)
--- NOTE | 2018-08-11 07:55 | NUR ---
HAND-OFF: Report given to CHERI Padilla. Patient stable.
[2018-08-11 08:00] VITALS: BP 146/93
[2018-08-11] MEDS: Lisinopril 20mg tab ORAL SCH (08:31)
--- NOTE | 2018-08-11 08:34 | NUR ---
CASE MANAGEMENT:REVIEW 53 YR OLD FEMALE PRESENTED TO ER CC: BACK PAIN AND MUSCLE SPASM SI: INTRACTABLE BACK PAIN. HYPOKALEMIA 98.3 80 19 150/77 98% ON RA K-3.0 IS: IV ATIVAN X1 IV DILAUDID X1 KCL PO X1 : TO MED/SURG 3 EAST IV DILAUDID Q3HRS PRN
--- NOTE | 2018-08-11 08:39 | NUR ---
INTERQUAL CRITERIA MET FOR OBSERVATION ONLY!!!
[2018-08-11] MEDS: DULoxetine 30mg cap ORAL SCH (09:00)
[2018-08-11] MEDS: rOPINIRole 0.25mg tab ORAL SCH ×3 (09:23→17:33)
[2018-08-11 12:00] VITALS: BP_SYST 108; BP_SYST 121; BP_DIAS 65; BP_DIAS 83
[2018-08-11] MEDS ORDERED: LORazepam Inj 2mg/ml 1ml IV PRN (12:30)
--- NOTE | 2018-08-11 12:50 | Consultation ---
History of Present Illness General Date patient seen: Aug 11, 2018 Chief Complaint: Back Pain-No Injury Present Illness HPI 63-year-old female with hx of lumbar surgery with chronic pain, with Port-A- Cath for IV pain meds, presented to the emergency department complaining of 10 out of 10 in severity low back pain which she describes as exacerbation of her chronic pain. The pain has been progressive ever since she has a history of cauda equina syndrome in the past. she states she is on multiple pain medications at home including Robaxin and morphine . Patient denies nausea, vomiting, fevers, chills, history of cancer, night sweats or new trauma or fall. She is admitted for intractable pain. Allergies: Coded Allergies: MORPHINE (Verified Allergy, Mild, 04/14/18) per pt only slight itchness and resolved by benadryl. toleated dilaudid. CEFAZOLIN (Verified Allergy, Unknown, 04/15/18) IRON (Verified Allergy, Unknown, Rash, 08/09/17) had nausea, vomiting and rashes METHADONE (Verified Allergy, Unknown, 06/04/17) PENICILLINS (Verified Allergy, Unknown, 04/15/18) PREGABALIN (Verified Allergy, Unknown, 06/04/17) Medication History Scheduled Amitriptyline Hcl* (Amitriptyline Hcl*), 25 MG ORAL BEDTIME, (Reported) Amlodipine Besylate (Norvasc), 10 MG ORAL DAILY, (Reported) Baclofen* (Lioresal*), 20 MG ORAL THREE TIMES A DAY, (Reported) Carisoprodol* (Soma*), 300 MG PO TID, (Reported) Cephalexin* (Keflex*), 500 MG ORAL EVERY 12 HOURS, (Reported) Clonazepam* (Klonopin*), 1 MG ORAL Q6H, (Reported) Diphenhydramine HCl (Benadryl), 25 MG PO Q6HR, (Reported) Duloxetine Hcl* (Cymbalta*), 30 MG ORAL DAILY, (Reported) Folic Acid* (Folic Acid*), 2 MG ORAL DAILY, (Reported) Gabapentin* (Gabapentin*), 300 MG ORAL THREE TIMES A DAY, (Reported) Heparin Sod (Porcine) (Heparin Sodium*), 5,000 UNITS SUBQ EVERY 12 HOURS, ( Reported) Hydralazine Hcl* (Hydralazine Hcl*), 25 MG ORAL EVERY 6 HOURS, (Reported) Lidocaine (Lidoderm), 1 PATCH TOPIC DAILY, (Reported) Lisinopril (Lisinopril*), 20 MG ORAL DAILY, (Reported) Lorazepam* (Lorazepam*), 1 MG ORAL THREE TIMES A DAY, (Reported) Losartan Potassium (Losartan Potassium), 100 MG ORAL DAILY, (Reported) Losartan Potassium* (Losartan Potassium*), 50 MG ORAL DAILY, (Reported) Metoprolol Succinate* (Metoprolol Succinate*), 50 MG ORAL DAILY, (Reported) Nystatin* (Nystatin*), 1 APPLIC TOPIC THREE TIMES A DAY Omeprazole (Omeprazole), 20 MG ORAL DAILY, (Reported) Pantoprazole* (Protonix*), 40 MG ORAL DAILY, (Reported) Ropinirole Hcl* (Requip*), 0.5 MG ORAL THREE TIMES A DAY, (Reported) Triamcinolone Acet (Triamcinolone Acetonide), 1 APPLIC TP BID Triamcinolone Acet (Triamcinolone Acetonide), 15 GM APPLIC EVERY 8 HOURS [Ms Contin], 15 MG ORAL Q8HR, (Reported) Scheduled PRN Acetaminophen* (Acetaminophen 325MG Tablet*), 650 MG ORAL Q4H PRN for Mild Pain/ Temp > 100.5, (Reported) Diazepam* (Valium*), 4 MG ORAL Q4HR PRN for Muscle Spasm, (Reported) Diphenhydramine Hcl* (Benadryl*), 50 MG ORAL Q6H PRN for Itching, (Reported) Diphenhydramine Hcl* (Benadryl*), 25-50 MG ORAL Q6H PRN for Itching Hydromorphone HCl/Pf (Hydromorphone 2 mg/ml Vial), 2 MG IV Q4HR PRN for For Pain , (Reported) Lorazepam* (Ativan*), 2 MG IV Q4H PRN for For Anxiety, (Reported) Methocarbamol* (Methocarbamol*), 750 MG ORAL QHS PRN for For Pain, (Reported) Ondansetron* (Zofran*), 4 MG IV Q6H PRN for Nausea & Vomiting, (Reported) Polyethylene Glycol 3350* (Miralax*), 17 GM ORAL DAILY PRN for Constipation, ( Reported) Temazepam* (Restoril*), 15 MG ORAL BEDTIME PRN for Insomnia, (Reported) [Nitro], 0.4 MG ORAL G91RBOPK 3 DOSES PRN for CHEST PAIN, (Reported) Miscellaneous Medications Hydromorphone Hcl (Hydromorphone Hcl), 4 MG PO, (Reported) Morphine Sulfate (Rosanne), 15 MG PO, (Reported) Patient History Healthcare decision maker Resuscitation status Advanced Directive on File Past Medical/Surgical History Past Medical/Surgical History: (1) Benzodiazepine dependence (2) HTN (hypertension) (3) Opioid dependence Review of Systems Constitutional: Reports: no symptoms Eye: Reports: no symptoms Respiratory: Reports: no symptoms Physical Exam General Appearance: WD/WN Lines, tubes and drains: peripheral HEENT: normocephalic, anicteric Neck: non-tender, normal alignment Respiratory/Chest: chest wall non-tender, lungs clear Breasts: no masses Cardiovascular/Chest: normal peripheral pulses Abdomen: normal bowel sounds Genitourinary/Rectal: normal genital exam Extremities: normal range of motion Last 24 Hour Vital Signs Date Time Temp Pulse Resp B/P (MAP) Pulse Ox O2 Delivery O2 Flow Rate FiO2 08/11/18 12:24 121/83 08/11/18 09:46 99.1 08/11/18 09:00 99.1 08/11/18 09:00 Room Air 08/11/18 08:31 146/93 08/11/18 08:30 108 146/93 08/11/18 08:00 98.9 105 18 146/93 (110) 08/11/18 05:20 133/93 08/11/18 04:00 99.1 84 18 133/93 (106) 95 08/11/18 00:25 Room Air 08/10/18 23:40 98.8 78 17 142/69 (93) 100 08/10/18 23:32 141/73 08/10/18 21:45 98.4 80 18 141/73 99 Room Air 08/10/18 20:49 98.4 08/10/18 18:21 98.4 76 18 144/76 99 Room Air 08/10/18 18:11 98.2 80 19 150/77 98 Room Air Intake and Output 08/10/18 08/11/18 19:00 07:00 Intake Total 320 ml Output Total 320 ml Balance 0 ml Intake Oral 320 ml Output Urine Total 320 ml # Voids 1 Laboratory Tests Test 08/10/18 18:58 08/10/18 19:30 Urine Color Pale yellow Urine Appearance Clear Urine pH 5 (4.5-8.0) Urine Specific [place] 1.020 (1.005-1.035) Urine Protein 1+ (NEGATIVE) H Urine Glucose (UA) Negative (NEGATIVE) Urine Ketones Negative (NEGATIVE) Urine Blood 3+ (NEGATIVE) H Urine Nitrite Negative (NEGATIVE) Urine Bilirubin Negative (NEGATIVE) Urine Urobilinogen Normal MG/DL (0.0-1.0) Urine Leukocyte Esterase Negative (NEGATIVE) Urine RBC 2-4 /HPF (0 - 2) H Urine WBC 0-2 /HPF (0 - 2) Urine Squamous Epithelial Cells Few /LPF (NONE/OCC) Urine Bacteria Few /HPF (NONE) White Blood Count 6.7 K/UL (4.8-10.8) Red Blood Count 3.63 M/UL (4.20-5.40) L Hemoglobin 10.0 G/DL (12.0-16.0) L Hematocrit 31.2 % (37.0-47.0) L Mean Corpuscular Volume 86 FL (80-99) Mean Corpuscular Hemoglobin 27.5 PG (27.0-31.0) Mean Corpuscular Hemoglobin Concent 31.9 G/DL (32.0-36.0) L Red Cell Distribution Width 15.9 % (11.6-14.8) H Platelet Count 255 K/UL (150-450) Mean Platelet Volume 5.3 FL (6.5-10.1) L Neutrophils (%) (Auto) 70.7 % (45.0-75.0) Lymphocytes (%) (Auto) 21.0 % (20.0-45.0) Monocytes (%) (Auto) 6.8 % (1.0-10.0) Eosinophils (%) (Auto) 0.6 % (0.0-3.0) Basophils (%) (Auto) 0.9 % (0.0-2.0) Sodium Level 143 MMOL/L (136-145) Potassium Level 3.0 MMOL/L (3.5-5.1) L Chloride Level 106 MMOL/L (98-107) Carbon Dioxide Level 23 MMOL/L (21-32) Anion Gap 14 mmol/L (5-15) Blood Urea Nitrogen 15 mg/dL (7-18) Creatinine 0.6 MG/DL (0.55-1.30) Estimat Glomerular Filtration Rate > 60 mL/min (>60) Glucose Level 85 MG/DL (74-106) Calcium Level 8.3 MG/DL (8.5-10.1) L Total Bilirubin 0.3 MG/DL (0.2-1.0) Aspartate Amino Transf (AST/SGOT) 14 U/L (15-37) L Alanine Aminotransferase (ALT/SGPT) 21 U/L (12-78) Alkaline Phosphatase 140 U/L (46-116) H Total Protein 6.9 G/DL (6.4-8.2) Albumin 3.3 G/DL (3.4-5.0) L Globulin 3.6 g/dL Albumin/Globulin Ratio 0.9 (1.0-2.7) L Height (Feet): 5 Height (Inches): 3.00 Weight (Pounds): 150 Medications Current Medications Medications (Trade) Dose Ordered Sig/Danni Route PRN Reason Start Time Stop Time Status Last Admin Dose Admin Amitriptyline HCl (Elavil) 25 mg BEDTIME ORAL 08/10/18 22:15 09/09/18 22:14 Amlodipine Besylate (Norvasc) 10 mg DAILY ORAL 08/11/18 09:00 09/10/18 08:59 08/11/18 08:30 Carisoprodol (Soma) 300 mg TID ORAL 08/11/18 09:00 09/10/18 08:59 08/11/18 08:30 Clonazepam (KlonoPIN) 1 mg Q6HR ORAL 08/11/18 00:00 08/18/18 00:00 08/11/18 12:24 Diphenhydramine HCl (Benadryl) 25 mg Q6H PRN IVP Itching 08/11/18 12:30 09/10/18 12:29 Duloxetine HCl (Cymbalta) 30 mg DAILY ORAL 08/11/18 09:00 09/10/18 08:59 Gabapentin (Neurontin) 300 mg THREE TIMES A DAY ORAL 08/11/18 09:00 09/10/18 08:59 08/11/18 08:31 Hydralazine HCl (Apresoline) 25 mg EVERY 6 HOURS ORAL 08/11/18 00:00 09/10/18 00:00 08/11/18 12:24 Hydromorphone HCl (Dilaudid) 2 mg Q3H PRN IVP Severe Pain (Pain Scale 7-10) 08/10/18 22:30 08/17/18 22:29 08/11/18 12:09 Lisinopril (Prinivil) 20 mg DAILY ORAL 08/11/18 09:00 09/10/18 08:59 08/11/18 08:31 Lorazepam (Ativan 2mg/ml 1ml) 0.5 mg Q4H PRN IV For Anxiety 08/11/18 12:30 08/18/18 12:29 Morphine Sulfate (MS Contin) 15 mg Q8H PRN ORAL Moderate Pain (Pain Scale 4-6) 08/10/18 22:30 08/17/18 22:29 Pantoprazole (Protonix) 40 mg DAILY ORAL 08/11/18 09:00 09/10/18 08:59 08/11/18 08:31 Ropinirole HCl (Requip) 0.5 mg THREE TIMES A DAY ORAL 08/11/18 09:00 09/10/18 08:59 08/11/18 09:23 Assessment/Plan Problem List: (1) Intractable back pain ICD Codes: M54.9 - Dorsalgia, unspecified SNOMED: 681883831 (2) Benzodiazepine dependence ICD Codes: F13.20 - Sedative, hypnotic or anxiolytic dependence, uncomplicated SNOMED: 679692704 (3) Chronic back pain ICD Codes: M54.9 - Dorsalgia, unspecified; G89.29 - Other chronic pain SNOMED: 790078856 (4) HTN (hypertension) ICD Codes: I10 - Essential (primary) hypertension SNOMED: 24852772 (5) Anxiety ICD Codes: F41.9 - Anxiety disorder, unspecified SNOMED: 29059986 (6) Opioid dependence ICD Codes: F11.20 - Opioid dependence, uncomplicated SNOMED: 89299748 Assessment/Plan pain management IV dilaudid until Pain management sees her psych evaluation monitor Bp Adam Tom MD Aug 11, 2018 12:50
[2018-08-11] MEDS: Methocarbamol 750mg tab ORAL SCH ×3 (13:27→21:00)
[2018-08-11] MEDS: DiphenhydrAMINE 50mg/ml Inj IVP PRN ×2 (13:44→21:04)
--- NOTE | 2018-08-11 14:36 | NUR ---
NURSE NOTES: SUNITHA CASTILLO CALLED RE pT'S PAIN MANAGEMENT. STATES OK.
--- NOTE | 2018-08-11 14:38 | NUR ---
PT NOTE Received MD order for PT evaluation, medical record reviewed, interviewed patient. Patient lives with her in a single story house with 4 steps to enter with a rail. Prior to hospitalization patient was household ambulator holding on to furniture, uses a 4 wheeled walker prn. Patient uses a wheelchair in the community. Patient was able to ascend and descend the 4 steps. Patient also has a shower chair at home and was receiving home PT. Patient declined to participate with PT at this time due to pain, Valerie ALONZO notified, will re-attempt tomorrow.
--- NOTE | 2018-08-11 14:43 | NUR ---
NURSE NOTES: DR ALBERTS CALLED RE; PT'S C/O CONSTANT BACK PAIN. MD WILL SEE PT IN AM.
[2018-08-11 16:00] VITALS: BP 110/76
[2018-08-11] MEDS ORDERED: HYDROmorphone 2mg tab ORAL PRN (17:12)
--- NOTE | 2018-08-11 17:17 | General Progress Note ---
Assessment/Plan Assessment/Plan (1) Lumbar DDD (2) Lumbar spondylosis (4) Lumbar Herniated disc (5) Lumbar Radiculopathy (6) H/O Lumbar fusion revision Patient to be continued on Dilaudid IV will be started on Dilaudid 4mg PO 1 tab Q4H PRN severe breakthrough pain and Morphine ER will be changed to 30mg PO 1 tab Q8H ATC hold for oversedation. D/w Dr. Singh and he concurred. Subjective Date patient seen: Aug 11, 2018 Time patient seen: 04:45 - pm Allergies: Coded Allergies: MORPHINE (Verified Allergy, Mild, 04/14/18) per pt only slight itchness and resolved by benadryl. toleated dilaudid. CEFAZOLIN (Verified Allergy, Unknown, 04/15/18) IRON (Verified Allergy, Unknown, Rash, 08/09/17) had nausea, vomiting and rashes METHADONE (Verified Allergy, Unknown, 06/04/17) PENICILLINS (Verified Allergy, Unknown, 04/15/18) PREGABALIN (Verified Allergy, Unknown, 06/04/17) Subjective REVIEW OF SYSTEMS: Denies fever, chills, sweating, dizziness, drowsiness, sore throat, or change in her weight. No shortness of breath or chest pain. No nausea, vomiting, diarrhea, or blood in stool or urine. No bowel or bladder incontinence. No dysuria. She is complaining of low back pain. SUBJECTIVE: Patient is a known from prior admission reporting pain in her lower back is severe with spasm which was aggravated after a cardiac cath procedure. She has been started on Dilaudid 2mg IV Q3H PRN severe pain and Morphine ER at 15mg Q8H PRN moderate pain. However Morphine ER should be a scheduled medication and she takes 30mg at home. D/w her changing the Morphine ER and starting her on Dilaudid 4mg tabs as she takes at home for breakthrough pain and she seems to understand. Objective Last 24 Hour Vital Signs Date Time Temp Pulse Resp B/P (MAP) Pulse Ox O2 Delivery O2 Flow Rate FiO2 08/11/18 16:16 99.5 08/11/18 16:00 99.5 115 18 110/76 (87) 98 08/11/18 14:09 99.1 08/11/18 13:57 99.1 08/11/18 12:24 121/83 08/11/18 12:00 98.9 95 18 121/83 (96) 98 08/11/18 09:00 Room Air 08/11/18 08:31 146/93 08/11/18 08:30 108 146/93 08/11/18 08:00 98.9 105 18 146/93 (110) 08/11/18 05:20 133/93 08/11/18 04:00 99.1 84 18 133/93 (106) 95 08/11/18 00:25 Room Air 08/10/18 23:40 98.8 78 17 142/69 (93) 100 08/10/18 23:32 141/73 08/10/18 21:45 98.4 80 18 141/73 99 Room Air 08/10/18 20:49 98.4 08/10/18 18:21 98.4 76 18 144/76 99 Room Air 08/10/18 18:11 98.2 80 19 150/77 98 Room Air Intake and Output 08/10/18 08/11/18 19:00 07:00 Intake Total 320 ml Output Total 320 ml Balance 0 ml Intake Oral 320 ml Output Urine Total 320 ml # Voids 1 Laboratory Tests 08/10/18 18:58: Urine Color Pale yellow, Urine Appearance Clear, Urine pH 5, Urine Specific [place] 1.020, Urine Protein 1+H, Urine Glucose (UA) Negative, Urine Ketones Negative, Urine Blood 3+H, Urine Nitrite Negative, Urine Bilirubin Negative, Urine Urobilinogen Normal, Urine Leukocyte Esterase Negative, Urine RBC 2-4H, Urine WBC 0-2, Urine Squamous Epithelial Cells Few, Urine Bacteria Few 08/10/18 19:30: White Blood Count 6.7, Red Blood Count 3.63L, Hemoglobin 10.0L, Hematocrit 31.2L , Mean Corpuscular Volume 86, Mean Corpuscular Hemoglobin 27.5, Mean Corpuscular Hemoglobin Concent 31.9L, Red Cell Distribution Width 15.9H, Platelet Count 255, Mean Platelet Volume 5.3L, Neutrophils (%) (Auto) 70.7, Lymphocytes (%) (Auto) 21.0, Monocytes (%) (Auto) 6.8, Eosinophils (%) (Auto) 0.6, Basophils (%) (Auto) 0.9, Sodium Level 143, Potassium Level 3.0L, Chloride Level 106, Carbon Dioxide Level 23, Anion Gap 14, Blood Urea Nitrogen 15, Creatinine 0.6, Estimat Glomerular Filtration Rate > 60, Glucose Level 85, Calcium Level 8.3L, Total Bilirubin 0.3, Aspartate Amino Transf (AST/SGOT) 14L, Alanine Aminotransferase (ALT/SGPT) 21, Alkaline Phosphatase 140H, Total Protein 6.9, Albumin 3.3L, Globulin 3.6, Albumin/Globulin Ratio 0.9L Height (Feet): 5 Height (Inches): 3.00 Weight (Pounds): 150 Objective GENERAL: Alert, awake, and oriented x3. NECK: Range of motion is full in all directions. LUNGS: Clear. HEART: Regular. ABDOMEN: Soft Nontender. EXTREMITIES: No cyanosis. No clubbing. No edema. Tal Hewitt Aug 11, 2018 17:17
[2018-08-11] MEDS: Losartan 50mg tab ORAL SCH (17:34)
[2018-08-11] MEDS ORDERED: Metoprolol Succinate XL 50mg tab ORAL SCH (18:00)
--- NOTE | 2018-08-11 18:57 | NUR ---
NURSE NOTES: still with constant pain. medicated as needed. continue to monitor pt.
--- NOTE | 2018-08-11 19:23 | NUR ---
HAND-OFF: Report given to cristal rodrigez.
--- NOTE | 2018-08-11 19:53 | NUR ---
NURSE NOTES: Received patient awake, sitting up in bed, pt c/o 10/10 pain. Will give PRN pain medication for breakthrough, went over pain med schedule with pt, pt verbalizes understanding. No s/s of acute distress. Esteban cath noted. Pt ambulatory, fall and safety precautions taken.
[2018-08-11 20:00] VITALS: BP 143/84
[2018-08-11] MEDS: Metoprolol Tartrate 50mg tab ORAL SCH (21:00)
[2018-08-11] MEDS ORDERED: Atorvastatin 20mg tab ORAL SCH (21:00)
[2018-08-11] MEDS: Atorvastatin 20mg tab ORAL SCH (21:00)
[2018-08-11] MEDS: MS Contin 15mg tab ORAL SCH (21:04)
--- NOTE | 2018-08-11 22:15 | History and Physical Report ---
DATE OF ADMISSION: 08/10/2018 TIME SEEN: On at 1 p.m. CONSULTANTS: 1. Armani Singh M.D. 2. Adam Tom M.D. 3. Amanda Rivas M.D. 4. Med Hogan M.D. CHIEF COMPLAINT: Intractable low back pain, chronic pain, cauda equina. BRIEF HISTORY: This is a 53-year-old female, who lives at home with history of cauda equina syndrome with chronic low back pain. Last José Miguel, she went into [facility] to get angioplasty and was lying in bed for a while which aggravated her back. She thinks that it might have be the cause. The patient's pain had gotten worsened after she went home. She came to [facility] yesterday with the above-mentioned diagnoses and admitted to medical floor for further treatment. Currently, anxious in bed, complaining of severe back pain, 8/10, no other complaint. REVIEW OF SYSTEMS: No chest pain. Slight shortness of breath. No nausea, vomiting, or diarrhea. PAST MEDICAL HISTORY: Includes cauda equina syndrome, chronic pain, low back pain, anxiety also, and hypertension. PAST SURGICAL HISTORY: Recent angio, spinal fusion, neurostimulator, and eye surgery. ALLERGIES: Cefazolin, iron, methadone, morphine, penicillin, pregabalin. MEDICATIONS: Include Robaxin, Ativan, Benadryl, Norvasc, Soma, Cymbalta, Neurontin, Prinivil, Protonix, Requip, Klonopin, Dilaudid, MS Contin, Elavil. SOCIAL HISTORY: Positive smoke. No alcohol. No intravenous drug abuse. FAMILY HISTORY: Noncontributory. PHYSICAL EXAMINATION: GENERAL: Anxious in bed, oriented x3, distress secondary to pain. VITAL SIGNS: Temperature is 99, pulse 108, respiration 18, blood pressure 121/82. CARDIOVASCULAR: No murmur. LUNGS: Distant and clear. ABDOMEN: Bowel sounds positive. Nontender. Nondistended. EXTREMITIES: No cyanosis, clubbing, or edema. NEUROLOGIC: The patient moves all extremities, weak slightly. Thigh spasming as per the patient and of the back. LABORATORY DATA: Labs at this time show hemoglobin and hematocrit 10/31. Potassium 3, calcium 8.3, AST 14. Urinalysis, 3+ blood, 1+ protein. ASSESSMENT: Intractable back pain in the low back, chronic pain, anxiety, hypertension, cauda equina syndrome, and anemia. PLAN: PT and dietary evaluation. Pain control. Check labs in the morning. Resume home medications. Blood pressure control. We will get Nephrology evaluation by Dr. Hawkins. Ernesto Magallon D.O. DR: Sara JOB#: [id number] CC:
[2018-08-12] MEDS: HydrALAZINE 25mg tab ORAL SCH ×3 (00:22→12:25)
[2018-08-12 04:30] VITALS: BP 107/65
[2018-08-12] MEDS: MS Contin 15mg tab ORAL SCH ×3 (06:09→21:12)
[2018-08-12] MEDS: DiphenhydrAMINE 50mg/ml Inj IVP PRN ×3 (06:09→21:12)
[2018-08-12 07:17] LABS: % IRON SATURATION 12 % (15-50); IRON 46 ug/dL (50-175); TOTAL IRON BINDING CAPACITY 383 ug/dL (250-450)
[2018-08-12 07:21] LABS: BASOPHILS % (AUTO) 1.2 % (0.0-2.0); HEMATOCRIT 34.8 % (37.0-47.0); HEMOGLOBIN 11.1 G/DL (12.0-16.0); LYMPHOCYTES % (AUTO) 19.8 % (20.0-45.0); MEAN CORPUSCULAR VOLUME 88 FL (80-99); MONOCYTES % (AUTO) 5.8 % (1.0-10.0); NEUTROPHILS % (AUTO) 72.3 % (45.0-75.0); PLATELET COUNT 297 K/UL (150-450); RED BLOOD COUNT 3.96 M/UL (4.20-5.40); RED CELL DISTRIBUTION WIDTH 16.8 % (11.6-14.8); WHITE BLOOD COUNT 9.2 K/UL (4.8-10.8)
[2018-08-12 07:28] LABS: ALANINE AMINOTRANSFERASE 23 U/L (12-78); ALBUMIN 3.4 G/DL (3.4-5.0); ALKALINE PHOSPHATASE 150 U/L (46-116); ASPARTATE AMINO TRANSFERASE 12 U/L (15-37); BILIRUBIN,DIRECT < 0.1 MG/DL (0.0-0.3); BILIRUBIN,TOTAL 0.2 MG/DL (0.2-1.0); PHOSPHORUS 3.1 MG/DL (2.5-4.9)
[2018-08-12 07:31] LABS: ANION GAP 10 mmol/L (5-15); BLOOD UREA NITROGEN 14 mg/dL (7-18); CALCIUM 9.5 MG/DL (8.5-10.1); CARBON DIOXIDE 24 MMOL/L (21-32); CHLORIDE 110 MMOL/L (98-107); CHOLESTEROL 141 MG/DL (< 200); CREATININE 0.9 MG/DL (0.55-1.30); FERRITIN 22 NG/ML (8-388); HDL CHOLESTEROL 77 MG/DL (40-60); POTASSIUM 4.4 MMOL/L (3.5-5.1); SODIUM 144 MMOL/L (136-145); TRIGLYCERIDES 85 MG/DL (30-150)
--- NOTE | 2018-08-12 07:38 | NUR ---
HAND-OFF: Written Report given to CHERI Padilla .
--- NOTE | 2018-08-12 07:54 | NUR ---
NURSE NOTES: AWAKE/ALERT.PAIN SCALE 9/10. IN NO ACUTE DISTRESS.
[2018-08-12 08:00] VITALS: BP 126/76
--- NOTE | 2018-08-12 09:07 | General Progress Note ---
Assessment/Plan Assessment/Plan (1) Lumbar DDD (2) Lumbar spondylosis (4) Lumbar Herniated disc (5) Lumbar Radiculopathy (6) H/O Lumbar fusion revision Patient to be continued on Dilaudid and Morphine ER. D/w Dr. Singh and he concurred. Subjective Date patient seen: Aug 12, 2018 Time patient seen: 07:30 - am Allergies: Coded Allergies: MORPHINE (Verified Allergy, Mild, 04/14/18) per pt only slight itchness and resolved by benadryl. toleated dilaudid. CEFAZOLIN (Verified Allergy, Unknown, 04/15/18) IRON (Verified Allergy, Unknown, Rash, 08/09/17) had nausea, vomiting and rashes METHADONE (Verified Allergy, Unknown, 06/04/17) PENICILLINS (Verified Allergy, Unknown, 04/15/18) PREGABALIN (Verified Allergy, Unknown, 06/04/17) Subjective REVIEW OF SYSTEMS: Denies fever, chills, sweating, dizziness, drowsiness, sore throat, or change in her weight. No shortness of breath or chest pain. No nausea, vomiting, diarrhea, or blood in stool or urine. No bowel or bladder incontinence. No dysuria. She is complaining of low back pain. SUBJECTIVE: Patient has been tolerating the pain better with the current medication regimen. However continues to c/o pain and spasms. Has No new complaints at this time. She has taken 2 morphine ER and 6 Dilaudid IV. Has not requested Dilaudid tabs. Objective Last 24 Hour Vital Signs Date Time Temp Pulse Resp B/P (MAP) Pulse Ox O2 Delivery O2 Flow Rate FiO2 08/12/18 05:48 107/65 08/12/18 04:30 98.3 87 18 107/65 (79) 99 08/12/18 00:22 110/76 08/11/18 22:53 Room Air 08/11/18 21:00 115 110/76 08/11/18 20:00 98.8 88 18 143/84 (103) 98 08/11/18 19:16 99.5 08/11/18 18:03 99.5 08/11/18 17:34 110/76 08/11/18 17:32 110/76 08/11/18 16:00 99.5 115 18 110/76 (87) 98 08/11/18 14:09 99.1 08/11/18 12:24 121/83 08/11/18 12:00 98.9 95 18 121/83 (96) 98 Intake and Output 08/11/18 08/12/18 18:59 06:59 Intake Total 480 ml Balance 480 ml Intake Oral 480 ml # Voids 3 3 Laboratory Tests 08/11/18 21:00: C-Reactive Protein, Quantitative 4.3H 08/12/18 05:20: Sodium Level 144, Potassium Level 4.4, Chloride Level 110H, Carbon Dioxide Level 24, Anion Gap 10, Blood Urea Nitrogen 14, Creatinine 0.9, Estimat Glomerular Filtration Rate > 60, Glucose Level 108H, Calcium Level 9.5, Ferritin 22, Triglycerides Level 85, Cholesterol Level 141, LDL Cholesterol 45, HDL Cholesterol 77H, Cholesterol/HDL Ratio 1.8L, Vitamin B12 Level 467, Folate 5.3L, Thyroid Stimulating Hormone (TSH) 1.485 08/12/18 06:50: White Blood Count 9.2, Red Blood Count 3.96L, Hemoglobin 11.1L, Hematocrit 34.8L , Mean Corpuscular Volume 88, Mean Corpuscular Hemoglobin 28.1, Mean Corpuscular Hemoglobin Concent 31.9L, Red Cell Distribution Width 16.8H, Platelet Count 297, Mean Platelet Volume 5.4L, Neutrophils (%) (Auto) 72.3, Lymphocytes (%) (Auto) 19.8L, Monocytes (%) (Auto) 5.8, Eosinophils (%) (Auto) 1.0, Basophils (%) (Auto) 1.2, Uric Acid 3.7, Phosphorus Level 3.1, Magnesium Level 1.8, Iron Level 46L, Total Iron Binding Capacity 383, Percent Iron Saturation 12L, Unsaturated Iron Binding 337, Total Bilirubin 0.2, Direct Bilirubin < 0.1, Aspartate Amino Transf (AST/SGOT) 12L, Alanine Aminotransferase (ALT/SGPT) 23, Alkaline Phosphatase 150H, Pro-B-Type Natriuretic Peptide 51, Total Protein 6.9, Albumin 3.4 Height (Feet): 5 Height (Inches): 3.00 Weight (Pounds): 150 Objective GENERAL: Alert, awake, and oriented x3. NECK: Range of motion is full in all directions. LUNGS: Clear. HEART: Regular. ABDOMEN: Soft Nontender. EXTREMITIES: No cyanosis. No clubbing. No edema. Tal Hewitt Aug 12, 2018 09:07
[2018-08-12] MEDS: Metoprolol Tartrate 50mg tab ORAL SCH ×2 (09:14→20:12)
[2018-08-12] MEDS: DULoxetine 30mg cap ORAL SCH (09:14)
[2018-08-12] MEDS: rOPINIRole 0.25mg tab ORAL SCH ×3 (09:14→17:39)
[2018-08-12] MEDS: Methocarbamol 750mg tab ORAL SCH ×4 (09:15→20:13)
[2018-08-12] MEDS: Losartan 50mg tab ORAL SCH ×2 (09:16→17:39)
[2018-08-12] MEDS: Lisinopril 20mg tab ORAL SCH (09:19)
[2018-08-12 12:00] VITALS: BP 115/70
--- NOTE | 2018-08-12 12:13 | General Progress Note ---
Assessment/Plan Problem List: (1) intractable back pain (2) Anemia ICD Codes: D64.9 - Anemia, unspecified SNOMED: 781190449 (3) Anxiety ICD Codes: F41.9 - Anxiety disorder, unspecified SNOMED: 51654763 (4) HTN (hypertension) ICD Codes: I10 - Essential (primary) hypertension SNOMED: 24191407 Status: stable, progressing Assessment/Plan pt dit pain control heme eval cbc bmp am Subjective Constitutional: Reports: weakness Allergies: Coded Allergies: MORPHINE (Verified Allergy, Mild, 04/14/18) per pt only slight itchness and resolved by benadryl. toleated dilaudid. CEFAZOLIN (Verified Allergy, Unknown, 04/15/18) IRON (Verified Allergy, Unknown, Rash, 08/09/17) had nausea, vomiting and rashes METHADONE (Verified Allergy, Unknown, 06/04/17) PENICILLINS (Verified Allergy, Unknown, 04/15/18) PREGABALIN (Verified Allergy, Unknown, 06/04/17) All Systems: reviewed and negative except above Subjective back pain 10/17 Objective Last 24 Hour Vital Signs Date Time Temp Pulse Resp B/P (MAP) Pulse Ox O2 Delivery O2 Flow Rate FiO2 08/12/18 09:43 98.3 08/12/18 09:42 Room Air 08/12/18 09:40 98.3 08/12/18 09:19 126/73 08/12/18 09:16 126/73 08/12/18 09:16 86 126/73 08/12/18 09:14 86 126/73 08/12/18 08:00 99.4 86 20 126/76 (93) 97 08/12/18 05:48 107/65 08/12/18 04:30 98.3 87 18 107/65 (79) 99 08/12/18 00:22 110/76 08/11/18 22:53 Room Air 08/11/18 21:00 115 110/76 08/11/18 20:00 98.8 88 18 143/84 (103) 98 08/11/18 17:34 110/76 08/11/18 17:32 110/76 08/11/18 16:00 99.5 115 18 110/76 (87) 98 08/11/18 14:09 99.1 08/11/18 12:24 121/83 Intake and Output 08/11/18 08/12/18 18:59 06:59 Intake Total 480 ml Balance 480 ml Intake Oral 480 ml # Voids 3 3 Laboratory Tests 08/11/18 21:00: C-Reactive Protein, Quantitative 4.3H 08/12/18 05:20: Sodium Level 144, Potassium Level 4.4, Chloride Level 110H, Carbon Dioxide Level 24, Anion Gap 10, Blood Urea Nitrogen 14, Creatinine 0.9, Estimat Glomerular Filtration Rate > 60, Glucose Level 108H, Calcium Level 9.5, Ferritin 22, Triglycerides Level 85, Cholesterol Level 141, LDL Cholesterol 45, HDL Cholesterol 77H, Cholesterol/HDL Ratio 1.8L, Vitamin B12 Level 467, Folate 5.3L, Thyroid Stimulating Hormone (TSH) 1.485 08/12/18 06:50: White Blood Count 9.2, Red Blood Count 3.96L, Hemoglobin 11.1L, Hematocrit 34.8L , Mean Corpuscular Volume 88, Mean Corpuscular Hemoglobin 28.1, Mean Corpuscular Hemoglobin Concent 31.9L, Red Cell Distribution Width 16.8H, Platelet Count 297, Mean Platelet Volume 5.4L, Neutrophils (%) (Auto) 72.3, Lymphocytes (%) (Auto) 19.8L, Monocytes (%) (Auto) 5.8, Eosinophils (%) (Auto) 1.0, Basophils (%) (Auto) 1.2, Uric Acid 3.7, Phosphorus Level 3.1, Magnesium Level 1.8, Iron Level 46L, Total Iron Binding Capacity 383, Percent Iron Saturation 12L, Unsaturated Iron Binding 337, Total Bilirubin 0.2, Direct Bilirubin < 0.1, Aspartate Amino Transf (AST/SGOT) 12L, Alanine Aminotransferase (ALT/SGPT) 23, Alkaline Phosphatase 150H, Pro-B-Type Natriuretic Peptide 51, Total Protein 6.9, Albumin 3.4 Height (Feet): 5 Height (Inches): 3.00 Weight (Pounds): 150 General Appearance: lethargic EENT: normal ENT inspection Neck: normal alignment Cardiovascular: normal peripheral pulses, normal rate, regular rhythm Respiratory/Chest: chest wall non-tender, lungs clear, normal breath sounds Abdomen: normal bowel sounds, non tender, soft Extremities: normal inspection Edema: no edema noted Arm (L), no edema noted Arm (R), no edema noted Leg (L), no edema noted Leg (R), no edema noted Pedal (L), no edema noted Pedal (R), no edema noted Generalized Neurologic: responsive, motor weakness Skin: normal pigmentation, warm/dry Ernesto Magallon DO Aug 12, 2018 12:13
--- NOTE | 2018-08-12 15:44 | Pulmonology Progress Note ---
Assessment/Plan Problems: (1) Intractable back pain (2) Benzodiazepine dependence (3) Chronic back pain (4) HTN (hypertension) (5) Anxiety (6) Opioid dependence Assessment/Plan less pain more relaxed monitor BP check electrolytes Anxiolytics prn dvt prophylaxis. Subjective ROS Limited/Unobtainable: No Constitutional: Reports: no symptoms HEENT: Repors: no symptoms Respiratory: Reports: no symptoms Allergies: Coded Allergies: MORPHINE (Verified Allergy, Mild, 04/14/18) per pt only slight itchness and resolved by benadryl. toleated dilaudid. CEFAZOLIN (Verified Allergy, Unknown, 04/15/18) IRON (Verified Allergy, Unknown, Rash, 08/09/17) had nausea, vomiting and rashes METHADONE (Verified Allergy, Unknown, 06/04/17) PENICILLINS (Verified Allergy, Unknown, 04/15/18) PREGABALIN (Verified Allergy, Unknown, 06/04/17) Objective Last 24 Hour Vital Signs Date Time Temp Pulse Resp B/P (MAP) Pulse Ox O2 Delivery O2 Flow Rate FiO2 08/12/18 14:37 98.3 08/12/18 13:30 98.3 08/12/18 12:56 98.3 08/12/18 12:25 134/73 08/12/18 12:00 97.6 78 18 115/70 (85) 99 08/12/18 09:42 Room Air 08/12/18 09:19 126/73 08/12/18 09:16 126/73 08/12/18 09:16 86 126/73 08/12/18 09:14 86 126/73 08/12/18 08:00 99.4 86 20 126/76 (93) 97 08/12/18 05:48 107/65 08/12/18 04:30 98.3 87 18 107/65 (79) 99 08/12/18 00:22 110/76 08/11/18 22:53 Room Air 08/11/18 21:00 115 110/76 08/11/18 20:00 98.8 88 18 143/84 (103) 98 08/11/18 17:34 110/76 08/11/18 17:32 110/76 08/11/18 16:00 99.5 115 18 110/76 (87) 98 Intake and Output 08/11/18 08/12/18 19:00 07:00 Intake Total 480 ml Balance 480 ml Intake Oral 480 ml # Voids 3 3 Objective General Appearance: WD/WN Lines, tubes and drains: peripheral HEENT: normocephalic, anicteric Neck: non-tender, normal alignment Respiratory/Chest: chest wall non-tender, lungs clear Breasts: no masses Cardiovascular/Chest: normal peripheral pulses Abdomen: normal bowel sounds Genitourinary/Rectal: normal genital Laboratory Tests 08/11/18 21:00: C-Reactive Protein, Quantitative 4.3H 08/12/18 05:20: Sodium Level 144, Potassium Level 4.4, Chloride Level 110H, Carbon Dioxide Level 24, Anion Gap 10, Blood Urea Nitrogen 14, Creatinine 0.9, Estimat Glomerular Filtration Rate > 60, Glucose Level 108H, Calcium Level 9.5, Ferritin 22, Triglycerides Level 85, Cholesterol Level 141, LDL Cholesterol 45, HDL Cholesterol 77H, Cholesterol/HDL Ratio 1.8L, Vitamin B12 Level 467, Folate 5.3L, Thyroid Stimulating Hormone (TSH) 1.485 08/12/18 06:50: White Blood Count 9.2, Red Blood Count 3.96L, Hemoglobin 11.1L, Hematocrit 34.8L , Mean Corpuscular Volume 88, Mean Corpuscular Hemoglobin 28.1, Mean Corpuscular Hemoglobin Concent 31.9L, Red Cell Distribution Width 16.8H, Platelet Count 297, Mean Platelet Volume 5.4L, Neutrophils (%) (Auto) 72.3, Lymphocytes (%) (Auto) 19.8L, Monocytes (%) (Auto) 5.8, Eosinophils (%) (Auto) 1.0, Basophils (%) (Auto) 1.2, Uric Acid 3.7, Phosphorus Level 3.1, Magnesium Level 1.8, Iron Level 46L, Total Iron Binding Capacity 383, Percent Iron Saturation 12L, Unsaturated Iron Binding 337, Total Bilirubin 0.2, Direct Bilirubin < 0.1, Aspartate Amino Transf (AST/SGOT) 12L, Alanine Aminotransferase (ALT/SGPT) 23, Alkaline Phosphatase 150H, Pro-B-Type Natriuretic Peptide 51, Total Protein 6.9, Albumin 3.4 Current Medications Medications (Trade) Dose Ordered Sig/Danni Route PRN Reason Start Time Stop Time Status Last Admin Dose Admin Amitriptyline HCl (Elavil) 25 mg BEDTIME ORAL 08/10/18 22:15 09/09/18 22:14 08/11/18 21:01 Amlodipine Besylate (Norvasc) 10 mg DAILY ORAL 08/11/18 09:00 09/10/18 08:59 08/12/18 09:16 Aspirin (ASA) 325 mg DAILY ORAL 08/12/18 09:00 09/11/18 08:59 08/12/18 09:13 Atorvastatin Calcium (Lipitor) 40 mg BEDTIME ORAL 08/11/18 21:00 09/10/18 20:59 08/11/18 21:00 Carisoprodol (Soma) 300 mg TID ORAL 08/11/18 09:00 09/10/18 08:59 08/12/18 13:00 Chlorhexidine Gluconate (Margot-Hex 2%) 1 applic DAILY@2000 TOPIC 08/12/18 20:00 09/11/18 19:59 Clonazepam (KlonoPIN) 1 mg Q6HR ORAL 08/11/18 00:00 08/18/18 00:00 08/12/18 12:25 Diphenhydramine HCl (Benadryl) 25 mg Q6H PRN IVP Itching 08/11/18 12:30 09/10/18 12:29 08/12/18 14:08 Duloxetine HCl (Cymbalta) 30 mg DAILY ORAL 08/11/18 09:00 09/10/18 08:59 08/12/18 09:14 Gabapentin (Neurontin) 300 mg THREE TIMES A DAY ORAL 08/11/18 09:00 09/10/18 08:59 08/12/18 13:00 Hydralazine HCl (Apresoline) 25 mg EVERY 6 HOURS ORAL 08/11/18 00:00 09/10/18 00:00 08/12/18 12:25 Hydromorphone HCl (Dilaudid) 2 mg Q3H PRN IVP Severe Pain (Pain Scale 7-10) 08/10/18 22:30 08/17/18 22:29 08/12/18 12:26 Hydromorphone HCl (Dilaudid) 4 mg Q4H PRN ORAL severe break through pain 08/11/18 17:12 08/18/18 17:11 Lisinopril (Prinivil) 20 mg DAILY ORAL 08/11/18 09:00 09/10/18 08:59 08/12/18 09:19 Lorazepam (Ativan 2mg/ml 1ml) 0.5 mg Q4H PRN IV For Anxiety 08/11/18 12:30 08/18/18 12:29 Losartan Potassium (Cozaar) 50 mg BID ORAL 08/11/18 18:00 09/10/18 17:59 08/12/18 09:16 Methocarbamol (Robaxin) 750 mg QID ORAL 08/11/18 13:00 09/10/18 12:59 08/12/18 13:00 Metoprolol Tartrate (Lopressor) 50 mg Q12HR ORAL 08/11/18 21:00 09/10/18 20:59 08/12/18 09:14 Morphine Sulfate (MS Contin) 30 mg Q8HR ORAL 08/11/18 22:00 08/18/18 21:59 08/12/18 14:07 Pantoprazole (Protonix) 40 mg DAILY ORAL 08/11/18 09:00 09/10/18 08:59 08/12/18 09:14 Ropinirole HCl (Requip) 0.5 mg THREE TIMES A DAY ORAL 08/11/18 09:00 09/10/18 08:59 08/12/18 12:59 Adam Tom MD Aug 12, 2018 15:44
[2018-08-12 16:00] VITALS: BP 122/79
--- NOTE | 2018-08-12 16:33 | Consultation ---
Consult Note Consult Note asked to eval for electrolyte imbalance Chief Complaint: Back Pain-No Injury HPI 63-year-old female presents to the emergency department complaining of 10 out of 10 in severity low back pain which she describes as exacerbation of her chronic pain. Patient reports that she had to lie flat during an examination ago and she's been having pain that is been progressive ever since she has a history of cauda equina syndrome in the past she also has history of heart problems she states she is on multiple pain medications at home including Robaxin and morphine and states that medications at home are not helping. Patient denies nausea, vomiting, fevers, chills, history of cancer, night sweats or new trauma or fall. Patient denies incontinence of her urine or bowels and denies urinary retention. Pt. states that she has a Port-A-Cath for which IV pain medications are typically administered as she is a hard stick. any movement exacerbated her LBP, nothing is providing relief at this time. Allergies: Coded Allergies: MORPHINE (Verified Allergy, Mild, 04/14/18) per pt only slight itchness and resolved by benadryl. toleated dilaudid. CEFAZOLIN (Verified Allergy, Unknown, 04/15/18) IRON (Verified Allergy, Unknown, Rash, 08/09/17) had nausea, vomiting and rashes METHADONE (Verified Allergy, Unknown, 06/04/17) PENICILLINS (Verified Allergy, Unknown, 04/15/18) PREGABALIN (Verified Allergy, Unknown, 06/04/17) Hx Cardiac Problems: Yes Hx Spinal Cord Injury: Yes Hx Numbness: Yes Hx Neurologic Surgery: Yes - 2009, 03/2018 Spinal surgery Assessment/Plan HTn on variety of anti hypertensives HypoKalemia Low Iron Anemia Low folate BP meds parameters states Iron Allergy k supplement given per consultants Nelson Hawkins MD Aug 12, 2018 16:33
[2018-08-12] MEDS ORDERED: Iron Sucrose 200 MG in NS 110 ML IVPB ONE (16:45)
--- NOTE | 2018-08-12 18:09 | Consultation ---
History of Present Illness General Chief Complaint: Back Pain-No Injury Present Illness Allergies: Coded Allergies: MORPHINE (Verified Allergy, Mild, 04/14/18) per pt only slight itchness and resolved by benadryl. toleated dilaudid. CEFAZOLIN (Verified Allergy, Unknown, 04/15/18) IRON (Verified Allergy, Unknown, Rash, 08/09/17) had nausea, vomiting and rashes METHADONE (Verified Allergy, Unknown, 06/04/17) PENICILLINS (Verified Allergy, Unknown, 04/15/18) PREGABALIN (Verified Allergy, Unknown, 06/04/17) Medication History Scheduled Amitriptyline Hcl* (Amitriptyline Hcl*), 25 MG ORAL BEDTIME, (Reported) Amlodipine Besylate (Norvasc), 10 MG ORAL DAILY, (Reported) Baclofen* (Lioresal*), 20 MG ORAL THREE TIMES A DAY, (Reported) Carisoprodol* (Soma*), 300 MG PO TID, (Reported) Cephalexin* (Keflex*), 500 MG ORAL EVERY 12 HOURS, (Reported) Clonazepam* (Klonopin*), 1 MG ORAL Q6H, (Reported) Diphenhydramine HCl (Benadryl), 25 MG PO Q6HR, (Reported) Duloxetine Hcl* (Cymbalta*), 30 MG ORAL DAILY, (Reported) Folic Acid* (Folic Acid*), 2 MG ORAL DAILY, (Reported) Gabapentin* (Gabapentin*), 300 MG ORAL THREE TIMES A DAY, (Reported) Heparin Sod (Porcine) (Heparin Sodium*), 5,000 UNITS SUBQ EVERY 12 HOURS, ( Reported) Hydralazine Hcl* (Hydralazine Hcl*), 25 MG ORAL EVERY 6 HOURS, (Reported) Lidocaine (Lidoderm), 1 PATCH TOPIC DAILY, (Reported) Lisinopril (Lisinopril*), 20 MG ORAL DAILY, (Reported) Lorazepam* (Lorazepam*), 1 MG ORAL THREE TIMES A DAY, (Reported) Losartan Potassium (Losartan Potassium), 100 MG ORAL DAILY, (Reported) Losartan Potassium* (Losartan Potassium*), 50 MG ORAL DAILY, (Reported) Metoprolol Succinate* (Metoprolol Succinate*), 50 MG ORAL DAILY, (Reported) Nystatin* (Nystatin*), 1 APPLIC TOPIC THREE TIMES A DAY Omeprazole (Omeprazole), 20 MG ORAL DAILY, (Reported) Pantoprazole* (Protonix*), 40 MG ORAL DAILY, (Reported) Ropinirole Hcl* (Requip*), 0.5 MG ORAL THREE TIMES A DAY, (Reported) Triamcinolone Acet (Triamcinolone Acetonide), 1 APPLIC TP BID Triamcinolone Acet (Triamcinolone Acetonide), 15 GM APPLIC EVERY 8 HOURS [Ms Contin], 15 MG ORAL Q8HR, (Reported) Scheduled PRN Acetaminophen* (Acetaminophen 325MG Tablet*), 650 MG ORAL Q4H PRN for Mild Pain/ Temp > 100.5, (Reported) Diazepam* (Valium*), 4 MG ORAL Q4HR PRN for Muscle Spasm, (Reported) Diphenhydramine Hcl* (Benadryl*), 50 MG ORAL Q6H PRN for Itching, (Reported) Diphenhydramine Hcl* (Benadryl*), 25-50 MG ORAL Q6H PRN for Itching Hydromorphone HCl/Pf (Hydromorphone 2 mg/ml Vial), 2 MG IV Q4HR PRN for For Pain , (Reported) Lorazepam* (Ativan*), 2 MG IV Q4H PRN for For Anxiety, (Reported) Methocarbamol* (Methocarbamol*), 750 MG ORAL QHS PRN for For Pain, (Reported) Ondansetron* (Zofran*), 4 MG IV Q6H PRN for Nausea & Vomiting, (Reported) Polyethylene Glycol 3350* (Miralax*), 17 GM ORAL DAILY PRN for Constipation, ( Reported) Temazepam* (Restoril*), 15 MG ORAL BEDTIME PRN for Insomnia, (Reported) [Nitro], 0.4 MG ORAL [id number] 3 DOSES PRN for CHEST PAIN, (Reported) Miscellaneous Medications Hydromorphone Hcl (Hydromorphone Hcl), 4 MG PO, (Reported) Morphine Sulfate (Rosanne), 15 MG PO, (Reported) Patient History Healthcare decision maker Resuscitation status Advanced Directive on File Physical Exam Last 24 Hour Vital Signs Date Time Temp Pulse Resp B/P (MAP) Pulse Ox O2 Delivery O2 Flow Rate FiO2 08/12/18 17:39 122/79 4/5/19 16:40 98.3 08/12/18 16:00 98.6 81 19 122/79 (93) 98 08/12/18 14:37 98.3 08/12/18 13:30 98.3 08/12/18 12:25 134/73 08/12/18 12:00 97.6 78 18 115/70 (85) 99 08/12/18 09:42 Room Air 08/12/18 09:19 126/73 08/12/18 09:16 126/73 08/12/18 09:16 86 126/73 08/12/18 09:14 86 126/73 08/12/18 08:00 99.4 86 20 126/76 (93) 97 08/12/18 05:48 107/65 08/12/18 04:30 98.3 87 18 107/65 (79) 99 08/12/18 00:22 110/76 08/11/18 22:53 Room Air 08/11/18 21:00 115 110/76 08/11/18 20:00 98.8 88 18 143/84 (103) 98 Intake and Output 08/11/18 08/12/18 19:00 07:00 Intake Total 480 ml Balance 480 ml Intake Oral 480 ml # Voids 3 3 Laboratory Tests Test 08/11/18 21:00 08/12/18 05:20 08/12/18 06:50 C-Reactive Protein, Quantitative 4.3 mg/dL (0.00-0.90) H Sodium Level 144 MMOL/L (136-145) Potassium Level 4.4 MMOL/L (3.5-5.1) Chloride Level 110 MMOL/L (98-107) H Carbon Dioxide Level 24 MMOL/L (21-32) Anion Gap 10 mmol/L (5-15) Blood Urea Nitrogen 14 mg/dL (7-18) Creatinine 0.9 MG/DL (0.55-1.30) Estimat Glomerular Filtration Rate > 60 mL/min (>60) Glucose Level 108 MG/DL (74-106) H Calcium Level 9.5 MG/DL (8.5-10.1) Ferritin 22 NG/ML (8-388) Triglycerides Level 85 MG/DL (30-150) Cholesterol Level 141 MG/DL (< 200) LDL Cholesterol 45 mg/dL (<100) HDL Cholesterol 77 MG/DL (40-60) H Cholesterol/HDL Ratio 1.8 (3.3-4.4) L Vitamin B12 Level 467 PG/ML (193-986) Folate 5.3 NG/ML (8.6-58.9) L Thyroid Stimulating Hormone (TSH) 1.485 uiU/mL (0.358-3.740) White Blood Count 9.2 K/UL (4.8-10.8) Red Blood Count 3.96 M/UL (4.20-5.40) L Hemoglobin 11.1 G/DL (12.0-16.0) L Hematocrit 34.8 % (37.0-47.0) L Mean Corpuscular Volume 88 FL (80-99) Mean Corpuscular Hemoglobin 28.1 PG (27.0-31.0) Mean Corpuscular Hemoglobin Concent 31.9 G/DL (32.0-36.0) L Red Cell Distribution Width 16.8 % (11.6-14.8) H Platelet Count 297 K/UL (150-450) Mean Platelet Volume 5.4 FL (6.5-10.1) L Neutrophils (%) (Auto) 72.3 % (45.0-75.0) Lymphocytes (%) (Auto) 19.8 % (20.0-45.0) L Monocytes (%) (Auto) 5.8 % (1.0-10.0) Eosinophils (%) (Auto) 1.0 % (0.0-3.0) Basophils (%) (Auto) 1.2 % (0.0-2.0) Uric Acid 3.7 MG/DL (2.6-7.2) Phosphorus Level 3.1 MG/DL (2.5-4.9) Magnesium Level 1.8 MG/DL (1.8-2.4) Iron Level 46 ug/dL (50-175) L Total Iron Binding Capacity 383 ug/dL (250-450) Percent Iron Saturation 12 % (15-50) L Unsaturated Iron Binding 337 ug/dL (112-346) Total Bilirubin 0.2 MG/DL (0.2-1.0) Direct Bilirubin < 0.1 MG/DL (0.0-0.3) Aspartate Amino Transf (AST/SGOT) 12 U/L (15-37) L Alanine Aminotransferase (ALT/SGPT) 23 U/L (12-78) Alkaline Phosphatase 150 U/L (46-116) H Pro-B-Type Natriuretic Peptide 51 pg/mL (0-125) Total Protein 6.9 G/DL (6.4-8.2) Albumin 3.4 G/DL (3.4-5.0) Height (Feet): 5 Height (Inches): 3.00 Weight (Pounds): 150 Medications Current Medications Medications (Trade) Dose Ordered Sig/Danni Route PRN Reason Start Time Stop Time Status Last Admin Dose Admin Amitriptyline HCl (Elavil) 25 mg BEDTIME ORAL 08/10/18 22:15 09/09/18 22:14 08/11/18 21:01 Amlodipine Besylate (Norvasc) 10 mg DAILY ORAL 08/13/18 09:00 09/10/18 08:59 Aspirin (ASA) 325 mg DAILY ORAL 08/12/18 09:00 09/11/18 08:59 08/12/18 09:13 Atorvastatin Calcium (Lipitor) 40 mg BEDTIME ORAL 08/11/18 21:00 09/10/18 20:59 08/11/18 21:00 Carisoprodol (Soma) 300 mg TID ORAL 08/11/18 09:00 09/10/18 08:59 08/12/18 17:38 Chlorhexidine Gluconate (Margot-Hex 2%) 1 applic DAILY@2000 TOPIC 08/12/18 20:00 09/11/18 19:59 Clonazepam (KlonoPIN) 1 mg Q6HR ORAL 08/11/18 00:00 08/18/18 00:00 08/12/18 17:38 Diphenhydramine HCl (Benadryl) 25 mg Q6H PRN IVP Itching 08/11/18 12:30 09/10/18 12:29 08/12/18 14:08 Duloxetine HCl (Cymbalta) 30 mg DAILY ORAL 08/11/18 09:00 09/10/18 08:59 08/12/18 09:14 Folic Acid (Folate) 2 mg DAILY ORAL 08/13/18 09:00 09/12/18 08:59 Folic Acid (Folate) 2 mg ONCE ORAL 08/12/18 17:15 08/12/18 18:15 08/12/18 17:38 Gabapentin (Neurontin) 300 mg THREE TIMES A DAY ORAL 08/11/18 09:00 09/10/18 08:59 08/12/18 17:40 Hydralazine HCl (Apresoline) 50 mg EVERY 8 HOURS ORAL 08/12/18 22:00 09/10/18 00:00 Hydromorphone HCl (Dilaudid) 2 mg Q3H PRN IVP Severe Pain (Pain Scale 7-10) 08/10/18 22:30 08/17/18 22:29 08/12/18 16:10 Hydromorphone HCl (Dilaudid) 4 mg Q4H PRN ORAL severe break through pain 08/11/18 17:12 08/18/18 17:11 Lisinopril (Prinivil) 20 mg DAILY ORAL 08/13/18 09:00 09/10/18 08:59 Lorazepam (Ativan 2mg/ml 1ml) 0.5 mg Q4H PRN IV For Anxiety 08/11/18 12:30 08/18/18 12:29 Losartan Potassium (Cozaar) 50 mg BID ORAL 08/12/18 18:00 09/10/18 17:59 08/12/18 17:39 Methocarbamol (Robaxin) 750 mg QID ORAL 08/11/18 13:00 09/10/18 12:59 08/12/18 17:40 Metoprolol Tartrate (Lopressor) 50 mg Q12HR ORAL 08/11/18 21:00 09/10/18 20:59 08/12/18 09:14 Morphine Sulfate (MS Contin) 30 mg Q8HR ORAL 08/11/18 22:00 08/18/18 21:59 08/12/18 14:07 Pantoprazole (Protonix) 40 mg DAILY ORAL 08/11/18 09:00 09/10/18 08:59 08/12/18 09:14 Ropinirole HCl (Requip) 0.5 mg THREE TIMES A DAY ORAL 08/11/18 09:00 09/10/18 08:59 08/12/18 17:39 Assessment/Plan Assessment/Plan Hematology Consult Date patient seen: Aug 12, 2018 Chief Complaint: Back Pain-No Injury REQ MD: Erica Magallon [facility]: Anemia evaluation HPI 63-year-old female with hx of lumbar surgery with chronic pain, with Port-A- Cath for IV pain meds, presented to the emergency department complaining of 10 out of 10 in severity low back pain which she describes as exacerbation of her chronic pain. The pain has been progressive ever since she has a history of cauda equina syndrome in the past. she states she is on multiple pain medications at home including Robaxin and morphine . Patient denies nausea, vomiting, fevers, chills, history of cancer, night sweats or new trauma or fall. She is admitted for intractable pain. Coded Allergies: MORPHINE (Verified Allergy, Mild, 04/14/18) per pt only slight itchness and resolved by benadryl. toleated dilaudid. CEFAZOLIN (Verified Allergy, Unknown, 04/15/18) IRON (Verified Allergy, Unknown, Rash, 08/09/17) had nausea, vomiting and rashes METHADONE (Verified Allergy, Unknown, 06/04/17) PENICILLINS (Verified Allergy, Unknown, 04/15/18) PREGABALIN (Verified Allergy, Unknown, 06/04/17) Medication History Scheduled Amitriptyline Hcl* (Amitriptyline Hcl*), 25 MG ORAL BEDTIME, (Reported) Amlodipine Besylate (Norvasc), 10 MG ORAL DAILY, (Reported) Baclofen* (Lioresal*), 20 MG ORAL THREE TIMES A DAY, (Reported) Carisoprodol* (Soma*), 300 MG PO TID, (Reported) Cephalexin* (Keflex*), 500 MG ORAL EVERY 12 HOURS, (Reported) Clonazepam* (Klonopin*), 1 MG ORAL Q6H, (Reported) Diphenhydramine HCl (Benadryl), 25 MG PO Q6HR, (Reported) Duloxetine Hcl* (Cymbalta*), 30 MG ORAL DAILY, (Reported) Folic Acid* (Folic Acid*), 2 MG ORAL DAILY, (Reported) Gabapentin* (Gabapentin*), 300 MG ORAL THREE TIMES A DAY, (Reported) Heparin Sod (Porcine) (Heparin Sodium*), 5,000 UNITS SUBQ EVERY 12 HOURS, ( Reported) Hydralazine Hcl* (Hydralazine Hcl*), 25 MG ORAL EVERY 6 HOURS, (Reported) Lidocaine (Lidoderm), 1 PATCH TOPIC DAILY, (Reported) Lisinopril (Lisinopril*), 20 MG ORAL DAILY, (Reported) Lorazepam* (Lorazepam*), 1 MG ORAL THREE TIMES A DAY, (Reported) Losartan Potassium (Losartan Potassium), 100 MG ORAL DAILY, (Reported) Losartan Potassium* (Losartan Potassium*), 50 MG ORAL DAILY, (Reported) Metoprolol Succinate* (Metoprolol Succinate*), 50 MG ORAL DAILY, (Reported) Nystatin* (Nystatin*), 1 APPLIC TOPIC THREE TIMES A DAY Omeprazole (Omeprazole), 20 MG ORAL DAILY, (Reported) Pantoprazole* (Protonix*), 40 MG ORAL DAILY, (Reported) Ropinirole Hcl* (Requip*), 0.5 MG ORAL THREE TIMES A DAY, (Reported) Triamcinolone Acet (Triamcinolone Acetonide), 1 APPLIC TP BID Triamcinolone Acet (Triamcinolone Acetonide), 15 GM APPLIC EVERY 8 HOURS [Ms Contin], 15 MG ORAL Q8HR, (Reported) Scheduled PRN Acetaminophen* (Acetaminophen 325MG Tablet*), 650 MG ORAL Q4H PRN for Mild Pain/ Temp > 100.5, (Reported) Diazepam* (Valium*), 4 MG ORAL Q4HR PRN for Muscle Spasm, (Reported) Diphenhydramine Hcl* (Benadryl*), 50 MG ORAL Q6H PRN for Itching, (Reported) Diphenhydramine Hcl* (Benadryl*), 25-50 MG ORAL Q6H PRN for Itching Hydromorphone HCl/Pf (Hydromorphone 2 mg/ml Vial), 2 MG IV Q4HR PRN for For Pain , (Reported) Lorazepam* (Ativan*), 2 MG IV Q4H PRN for For Anxiety, (Reported) Methocarbamol* (Methocarbamol*), 750 MG ORAL QHS PRN for For Pain, (Reported) Ondansetron* (Zofran*), 4 MG IV Q6H PRN for Nausea & Vomiting, (Reported) Polyethylene Glycol 3350* (Miralax*), 17 GM ORAL DAILY PRN for Constipation, ( Reported) Temazepam* (Restoril*), 15 MG ORAL BEDTIME PRN for Insomnia, (Reported) [Nitro], 0.4 MG ORAL [id number] 3 DOSES PRN for CHEST PAIN, (Reported) Miscellaneous Medications Hydromorphone Hcl (Hydromorphone Hcl), 4 MG PO, (Reported) Morphine Sulfate (Rosanne), 15 MG PO, (Reported) Patient History Healthcare decision maker Resuscitation status Advanced Directive on File Past Medical/Surgical History Past Medical/Surgical History: (1) Benzodiazepine dependence (2) HTN (hypertension) (3) Opioid dependence Review of Systems Constitutional: Reports: no symptoms Eye: Reports: no symptoms Respiratory: Reports: no symptoms Physical Exam General Appearance: WD/WN Lines, tubes and drains: peripheral HEENT: normocephalic, anicteric Neck: non-tender, normal alignment Respiratory/Chest: chest wall non-tender, lungs clear Breasts: no masses Cardiovascular/Chest: normal peripheral pulses Abdomen: normal bowel sounds Genitourinary/Rectal: normal genital exam Extremities: normal range of motion Last 24 Hour Vital Signs Date Time Temp Pulse Resp B/P (MAP) Pulse Ox O2 Delivery O2 Flow Rate FiO2 08/11/18 12:24 121/83 08/11/18 09:46 99.1 08/11/18 09:00 99.1 08/11/18 09:00 Room Air 08/11/18 08:31 146/93 08/11/18 08:30 108 146/93 08/11/18 08:00 98.9 105 18 146/93 (110) 08/11/18 05:20 133/93 08/11/18 04:00 99.1 84 18 133/93 (106) 95 08/11/18 00:25 Room Air 08/10/18 23:40 98.8 78 17 142/69 (93) 100 08/10/18 23:32 141/73 08/10/18 21:45 98.4 80 18 141/73 99 Room Air 08/10/18 20:49 98.4 08/10/18 18:21 98.4 76 18 144/76 99 Room Air 08/10/18 18:11 98.2 80 19 150/77 98 Room Air Intake and Output 08/10/18 08/11/18 19:00 07:00 Intake Total 320 ml Output Total 320 ml Balance 0 ml Intake Oral 320 ml Output Urine Total 320 ml # Voids 1 Laboratory Tests Test 08/10/18 18:58 08/10/18 19:30 Urine Color Pale yellow Urine Appearance Clear Urine pH 5 (4.5-8.0) Urine Specific [place] 1.020 (1.005-1.035) Urine Protein 1+ (NEGATIVE) H Urine Glucose (UA) Negative (NEGATIVE) Urine Ketones Negative (NEGATIVE) Urine Blood 3+ (NEGATIVE) H Urine Nitrite Negative (NEGATIVE) Urine Bilirubin Negative (NEGATIVE) Urine Urobilinogen Normal MG/DL (0.0-1.0) Urine Leukocyte Esterase Negative (NEGATIVE) Urine RBC 2-4 /HPF (0 - 2) H Urine WBC 0-2 /HPF (0 - 2) Urine Squamous Epithelial Cells Few /LPF (NONE/OCC) Urine Bacteria Few /HPF (NONE) White Blood Count 6.7 K/UL (4.8-10.8) Red Blood Count 3.63 M/UL (4.20-5.40) L Hemoglobin 10.0 G/DL (12.0-16.0) L Hematocrit 31.2 % (37.0-47.0) L Mean Corpuscular Volume 86 FL (80-99) Mean Corpuscular Hemoglobin 27.5 PG (27.0-31.0) Mean Corpuscular Hemoglobin Concent 31.9 G/DL (32.0-36.0) L Red Cell Distribution Width 15.9 % (11.6-14.8) H Platelet Count 255 K/UL (150-450) Mean Platelet Volume 5.3 FL (6.5-10.1) L Neutrophils (%) (Auto) 70.7 % (45.0-75.0) Lymphocytes (%) (Auto) 21.0 % (20.0-45.0) Monocytes (%) (Auto) 6.8 % (1.0-10.0) Eosinophils (%) (Auto) 0.6 % (0.0-3.0) Basophils (%) (Auto) 0.9 % (0.0-2.0) Sodium Level 143 MMOL/L (136-145) Potassium Level 3.0 MMOL/L (3.5-5.1) L Chloride Level 106 MMOL/L (98-107) Carbon Dioxide Level 23 MMOL/L (21-32) Anion Gap 14 mmol/L (5-15) Blood Urea Nitrogen 15 mg/dL (7-18) Creatinine 0.6 MG/DL (0.55-1.30) Estimat Glomerular Filtration Rate > 60 mL/min (>60) Glucose Level 85 MG/DL (74-106) Calcium Level 8.3 MG/DL (8.5-10.1) L Total Bilirubin 0.3 MG/DL (0.2-1.0) Aspartate Amino Transf (AST/SGOT) 14 U/L (15-37) L Alanine Aminotransferase (ALT/SGPT) 21 U/L (12-78) Alkaline Phosphatase 140 U/L (46-116) H Total Protein 6.9 G/DL (6.4-8.2) Albumin 3.3 G/DL (3.4-5.0) L Globulin 3.6 g/dL Albumin/Globulin Ratio 0.9 (1.0-2.7) L Height (Feet): 5 Height (Inches): 3.00 Weight (Pounds): 150 Medications Current Medications Medications (Trade) Dose Ordered Sig/Danni Route PRN Reason Start Time Stop Time Status Last Admin Dose Admin Amitriptyline HCl (Elavil) 25 mg BEDTIME ORAL 08/10/18 22:15 09/09/18 22:14 Amlodipine Besylate (Norvasc) 10 mg DAILY ORAL 08/11/18 09:00 09/10/18 08:59 08/11/18 08:30 Carisoprodol (Soma) 300 mg TID ORAL 08/11/18 09:00 09/10/18 08:59 08/11/18 08:30 Clonazepam (KlonoPIN) 1 mg Q6HR ORAL 08/11/18 00:00 08/18/18 00:00 08/11/18 12:24 Diphenhydramine HCl (Benadryl) 25 mg Q6H PRN IVP Itching 08/11/18 12:30 09/10/18 12:29 Duloxetine HCl (Cymbalta) 30 mg DAILY ORAL 08/11/18 09:00 09/10/18 08:59 Gabapentin (Neurontin) 300 mg THREE TIMES A DAY ORAL 08/11/18 09:00 09/10/18 08:59 08/11/18 08:31 Hydralazine HCl (Apresoline) 25 mg EVERY 6 HOURS ORAL 08/11/18 00:00 09/10/18 00:00 08/11/18 12:24 Hydromorphone HCl (Dilaudid) 2 mg Q3H PRN IVP Severe Pain (Pain Scale 7-10) 08/10/18 22:30 08/17/18 22:29 08/11/18 12:09 Lisinopril (Prinivil) 20 mg DAILY ORAL 08/11/18 09:00 09/10/18 08:59 08/11/18 08:31 Lorazepam (Ativan 2mg/ml 1ml) 0.5 mg Q4H PRN IV For Anxiety 08/11/18 12:30 08/18/18 12:29 Morphine Sulfate (MS Contin) 15 mg Q8H PRN ORAL Moderate Pain (Pain Scale 4-6) 08/10/18 22:30 08/17/18 22:29 Pantoprazole (Protonix) 40 mg DAILY ORAL 08/11/18 09:00 09/10/18 08:59 08/11/18 08:31 Ropinirole HCl (Requip) 0.5 mg THREE TIMES A DAY ORAL 08/11/18 09:00 09/10/18 08:59 08/11/18 09:23 Assessment/Plan # Anemia of iron deficiency rule out gi bleed --> Anemia workup has been ordered, rule out gi bleed, cea pending --> No evidence of hemolysis is noted, peripheral smear has been reviewed. --> Hgb goal >7. Transfuse prn. 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 Greatly appreciate consultation! Aroldo Odom MD Aug 12, 2018 18:09
--- NOTE | 2018-08-12 18:52 | NUR ---
NURSE NOTES: ON CONSTANT PAIN WITH LITTLE RELIEF. MEDICATED NEEDED.
--- NOTE | 2018-08-12 18:55 | NUR ---
HAND-OFF: Report given to SANDY ALONZO.
--- NOTE | 2018-08-12 19:41 | NUR ---
NURSE NOTES: Received patient awake in bed, able to verbalize needs, no s/s of acute distress. Pt c/o of pain med schedule but re-educated and patient verbalized understanding. Safety and fall precautions taken. Esteban cath on R chest wall noted.
[2018-08-12] MEDS: Dyna-Hex 2% Top Sol 2oz TOPIC SCH (19:58)
[2018-08-12 20:00] VITALS: BP 125/73
[2018-08-12] MEDS: Atorvastatin 20mg tab ORAL SCH (20:13)
--- NOTE | 2018-08-12 20:30 | Consultation ---
DATE OF CONSULTATION: 08/12/2018 NEUROLOGICAL CONSULTATION: CONSULTING PHYSICIAN: Med Hogan M.D. CHIEF COMPLAINT: This 53-year-old right-handed woman with degenerative joint disease of the lumbar spine, status post 2 surgeries in 2009 and February 2018 on the lumbar spine, also with a spinal cord stimulator placed 2 to 3 years ago, has a chief complaint of increasing low back pain recently that the medication is not helping that much. HISTORY OF PRESENT ILLNESS: The patient has had degenerative joint disease and had 2 surgeries, the first one in 2009 at [facility] and the second one in February 2018 on the lumbar spine. For her back pain, she also had a spinal cord stimulator placed. The patient's pain did not get much better. Her lower back pain is daily constant, right side greater than the left, radiates down into the front, back and the entire right leg, occasionally radiates down into the left leg. It is like a "biting, burning, and a cramping sensation." It is generally 8 or 9/10, but now she thinks it is 10/10 recently. The pain is aggravated by changes in temperature, but not by bending or other coughing or sneezing. It is also aggravated by taking a bath. The patient denies any seizures or blackouts, but she has "spasms" over entire body lasting 10 minutes or the whole day, 4 days a week. There is no loss of consciousness. There is generalized shaking. The patient takes Dilaudid 4 mg 3 to 4 tablets a day and morphine, which she is "allergic to." She takes Benadryl, she takes 3 tablets 30 mg a day. The patient is also on gabapentin, Soma, amitriptyline, Norvasc for hypertension, aspirin, hydralazine, lisinopril, lorazepam 2 mg/mL, Cozaar, Robaxin, metoprolol tartrate, pantoprazole, and ropinirole. The reason why she takes ropinirole is not known. The patient has some problems with constipation. She drinks occasionally. She smoked 2 packages of cigarettes for a week for years, but then quit. She denies any illegal drug use. Her memory is "poor" especially with her shaking spells. She also has loss of smell and taste and numbness in the tongue. She has dysphagia with Neurontin tablets. She denies any headaches. She has no hearing loss, tinnitus. She has occasional dizzy spells, gross balance problems. There is no vertigo. She can walk about 20 feet. She has numbness in the legs or feet, it is daily and constant, right side greater than the left. She has tunnel vision since 2002. 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 She is not diabetic. There is no history of cancer or thyroid disease. There is no family history of neurologic disease. PAST MEDICAL HISTORY/PAST MEDICAL ILLNESSES: 1. Opioid dependence. 2. Anemia of unknown etiology. 3. Hypertension. 4. Benzodiazepine dependence. 5. Cellulitis. 6. Hypokalemia. 7. Coronary artery disease with stents placed recently. 8. Appendicitis with appendectomy. 9. Fibroids of the uterus with a hysterectomy. HABITS: See above. SOCIAL HISTORY: She is unmarried. Has 1 child, in good health. SURGERIES: See above. ALLERGIES: She is allergic to morphine, cefazolin, iron, penicillins, supposedly pregabalin. FAMILY HISTORY: Her father of heart disease. Her mother is still alive, health unknown. One sibling has colon cancer. One has breast cancer. REVIEW OF SYSTEMS: Her appetite is good. Her weight stable. The rest of the review of systems is noncontributory. PHYSICAL EXAMINATION: GENERAL: She is a well-developed, well-nourished, overweight woman, in no acute distress. VITAL SIGNS: The temperature is 98.3 degrees with a pulse of 87 and regular, respiratory rate is 18, blood pressure is 107/65. HEENT: Examination of the head is normal except for a right auricular prosthesis. NECK: There is no tenderness or limitation of motion. Carotids are +2 without any bruits. LUNGS: Clear to auscultation. CARDIOVASCULAR: PMI is in the fifth intercostal space, midclavicular line. JVP is not seen. The patient had normal S1. S2 is physiologically split. There is no S3, S4, murmurs, or rubs noted. ABDOMEN: The abdomen is obese. Bowel sounds intact. There is no tenderness, masses, or organomegaly. There are some surgical scars in the abdomen. BACK: She has a large vertical lumbar scar with keloid formation. She has little gas in the upper lumbar area. She has tenderness from the mid back down to the lumbar spine to light percussion. EXTREMITIES: Her right foot is cool to the touch as compared to the left. There is no edema. NEUROLOGIC: MENTAL STATUS: Judgment could not be tested. Affect was somewhat inappropriate to her pain level. Memory, past memory was intact to date of . Immediate recall 3/3 objects. Recent recalls 1/3 objects at 5 minutes. Intellect, simple similarities are intact. Train and bicycle "you can ride on them." A watch and a ruler, "have numbers." Orientation, she did know the month. She knew it is 2018. Did not know the day. She thought the month was either February or January. Place, she thought she was in [facility]. Person, she was oriented to person. Language functions, spoken speech was full with good comprehension and repetition. She could spell world backwards. CRANIAL NERVE EXAMINATION: CRANIAL NERVES II: Visual field in the left eye was basically intact. CRANIAL NERVES III, IV, AND : The left ocular movement was normal. Pupil in the left eye was 3 mm and light reactive. CRANIAL NERVE V: There is decreased sensation to pinprick and fine touch in the first, second, and third divisions of the fifth cranial nerve, which ended at the hairline on the left. Pterygoid strength is 5/5. CRANIAL NERVE VII: Facial strength is 5/5. CRANIAL NERVE VIII: Auditory acuity is decreased to whisper bilaterally. CRANIAL NERVES IX AND X: Gag is intact bilaterally. CRANIAL NERVE XI: Sternocleidomastoid strength is 5/5. CRANIAL NERVE XII: Tongue protrudes in the midline without fasciculations or atrophy. MUSCLE EXAMINATION: Muscle bulk is basically intact. Tone is normal. Strength is 5/5 in the upper extremities, 5/5 in the left lower extremity, 4/5 in the proximal right upper extremity, distal right upper extremity 0/5 except for the gastrocnemius, which was 2/5. REFLEXES: +2 in the upper extremities, +1 at the knees, 0 at the ankles with an indefinite toe sign on the right and an indefinite upgoing toe on the left. COORDINATION: Hiveyb-sk-fywu is intact. Rapid alternating movements were normal. Vknr-hd-[id number] testing, she could do the wfrn-hu-zkqa testing normally of the right leg, but could not do it in the left leg. Kept slipping off her right leg. GAIT AND STATION: She has a wide-based shuffling gait. Can only walk a few feet. It is slow. Heel-toe tandem walk could not be done. SENSORY EXAMINATION: Proprioception is absent in the ankles, but normal in the fingers. Pinprick is decreased in the lower extremities to the knees in a stocking distribution. It is also decreased in the trunk all the way up to about T2 on the right and it was basically normal on the left side. Fine touch was decreased in the legs, again to the knees and in the trunk, all the way up to the neck on both sides. LABORATORY DATA: The patient's hemoglobin was 10, platelet count was 255,000, white count was 6700. Chemistries are normal except for potassium of 3, alkaline phosphatase of 140, albumin of 3.3, C-reactive protein of 4.3. Initial glucose is normal at 85. Iron is 46, which is low, percent saturation is 12. The urinalysis was basically normal except for +1 protein, +3 blood in the urine, and 2 to 4 rbc's. IMPRESSION: This patient has chronic low back pain, possibly from arachnoiditis. She also has an L5-S1 radiculopathy in the right. She has an absent right eye as well as decreased auditory acuity bilaterally. Her mental status is not quite normal. The gait was abnormal. The patient has sensory loss on the left side of the face. It is probably not real, again it is functional, which I could tell person's sensory loss in the body is also difficult to evaluate. She certainly has an L5-S1 radiculopathy in the right, mostly L5, but she also has absent ankle reflex on the left and depressed knee reflexes of L4 roots. The S1 nerve root can be involved in the left. I do not have any specific recommendations for her pain, trying to tell whether or not her mental status abnormalities are real. The patient's memory loss is probably related to the amount of medication that she is on, although she does not really have much in the way of lethargy. Probably, we will get an EEG, which should tell us how much of the medications are affecting her brain. She did show little slowing. As far as her medication is concerned, I would get pain management to treat her. The patient's episodes of shaking and tremor in her hands, vuvhqx-do-thri testing is difficult to evaluate. PLAN: 1. EEG at this time. 2. I will speak with you about this case. 3. Consider MRI scan of the brain. Thank you for this interesting case, Dr. Magallon. Med Hogan MD DR: YIMI JOB#: [id number] CC:
[2018-08-12] MEDS: Iron Sucrose 100 MG in NS 55 ML IVPB SCH ×2 (21:00→21:11)
[2018-08-12] MEDS: HydrALAZINE 50mg tab ORAL SCH (21:12)
--- NOTE | 2018-08-12 21:48 | NUR ---
NURSE NOTES: Pt unhappy with current pain medication schedule. Dr Hewitt called, no new orders.
[2018-08-13] VITALS: BP 105/68
[2018-08-13 04:00] VITALS: BP 142/83
[2018-08-13] MEDS: MS Contin 15mg tab ORAL SCH ×3 (05:20→23:12)
[2018-08-13] MEDS: HydrALAZINE 50mg tab ORAL SCH ×3 (05:20→22:14)
[2018-08-13] MEDS: DiphenhydrAMINE 50mg/ml Inj IVP PRN ×3 (05:21→20:55)
--- NOTE | 2018-08-13 06:59 | NUR ---
HAND-OFF: Report given to CHERI Padilla. No s/s of acute distress.
--- NOTE | 2018-08-13 07:00 | Consultation ---
DATE OF CONSULTATION: NOTE: POOR AUDIO PSYCHOTHERAPY CONSULTATION PROGRESS NOTE CONSULTING PHYSICIAN: Víctor Woo PsyD. TREATING ATTENDING PHYSICIAN: Ernesto Magallon D.O. HISTORY OF PRESENT ILLNESS: The patient is a 53-year-old female patient. The patient today was in the hospital. She states that she has muscle spasm and intractable back pain. She has been very anxious and for these reasons, she was referred for psychotherapeutic services. I assessed the patient. The patient states that she is having severe back pain. She states that she has muscle spasms all over her body which has been going on. She states for the several months to years, she has been very distressed. She states because of her pain, she is experiencing significant anxiety, feelings of pain. The patient is very cooperative with this clinician. She denies suicidal homicidal or thoughts of ideation. Denies any auditory or visual hallucinations. She is helpless and hopeless because of her current condition and pain. PAST MEDICAL HISTORY: Includes a history of chronic pain, hypertension, cauda equina syndrome. ALLERGIES: The patient is allergic to tigecycline, penicillin, morphine, methadone, SOCIAL HISTORY: The patient is a 53-year-old male. She lives with her family in [place]. Financially sustained through [employer]. PSYCHIATRIC HISTORY: The patient states that she has a history of anxiety because of significant pain and history of depression because of her pain. MENTAL STATUS EXAMINATION: She is alert and oriented to person, place, time, and situation. Her mood is . Thought process, organized. Thought content linear. The patient has fair attention and concentration. Fair insight, judgment, and impulse control. DIAGNOSES: 1. Generalized anxiety disorder. 2. 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 PLAN: I assessed this patient and provided the patient with: Supportive psychotherapy was provided. Provide the patient with emotional outlet and means to cope with emotional distress. The patient is able to process thoughts and feelings of anxiety and depression related to her current medical condition being able to participate in daily activities. Provide the patient with cognitive behavioral therapy, which consists with a range of problems that may involve patterns of being acting that are problematic, addressing the patient's negative and . Discussing the patient's feelings of anxiety and restlessness and catastrophic thought process, negative thoughts and working on processing identifying any possible coping skills . Plan is to maintain medication compliance with the progression of reality of thoughts, for positive coping skills, and stabilizing the thoughts and behavior. Psychotherapy provided to this patient, 20 minutes. Víctor Woo PsyD. DR: Luis Miguel JOB#: [id number] CC:
[2018-08-13 07:34] LABS: BASOPHILS % (AUTO) 0.8 % (0.0-2.0); EOSINOPHILS % (AUTO) 1.4 % (0.0-3.0); HEMATOCRIT 33.9 % (37.0-47.0); HEMOGLOBIN 10.6 G/DL (12.0-16.0); LYMPHOCYTES % (AUTO) 23.9 % (20.0-45.0); MEAN CORPUSCULAR VOLUME 89 FL (80-99); MONOCYTES % (AUTO) 4.5 % (1.0-10.0); NEUTROPHILS % (AUTO) 69.4 % (45.0-75.0); PLATELET COUNT 277 K/UL (150-450); RED CELL DISTRIBUTION WIDTH 16.9 % (11.6-14.8); WHITE BLOOD COUNT 9.1 K/UL (4.8-10.8)
--- NOTE | 2018-08-13 07:37 | NUR ---
NURSE NOTES: AWAKE/ALERT. IN NO DISTRESS.
[2018-08-13 08:00] LABS: ANION GAP 12 mmol/L (5-15); BLOOD UREA NITROGEN 18 mg/dL (7-18); CALCIUM 9.2 MG/DL (8.5-10.1); CARBON DIOXIDE 25 MMOL/L (21-32); CHLORIDE 106 MMOL/L (98-107); CREATININE 0.9 MG/DL (0.55-1.30); POTASSIUM 4.2 MMOL/L (3.5-5.1); SODIUM 143 MMOL/L (136-145)
[2018-08-13 08:02] VITALS: BP 136/80
--- NOTE | 2018-08-13 08:33 | General Progress Note ---
Assessment/Plan Problem List: (1) intractable back pain (2) Anemia ICD Codes: D64.9 - Anemia, unspecified SNOMED: 752900816 (3) Anxiety ICD Codes: F41.9 - Anxiety disorder, unspecified SNOMED: 94019578 (4) HTN (hypertension) ICD Codes: I10 - Essential (primary) hypertension SNOMED: 22043526 Status: unchanged Assessment/Plan pt diet pain control heme eval cbc bmp am Subjective Constitutional: Reports: weakness Allergies: Coded Allergies: MORPHINE (Verified Allergy, Mild, 04/14/18) per pt only slight itchness and resolved by benadryl. toleated dilaudid. CEFAZOLIN (Verified Allergy, Unknown, 04/15/18) IRON (Verified Allergy, Unknown, Rash, 08/09/17) had nausea, vomiting and rashes METHADONE (Verified Allergy, Unknown, 06/04/17) PENICILLINS (Verified Allergy, Unknown, 04/15/18) PREGABALIN (Verified Allergy, Unknown, 06/04/17) All Systems: reviewed and negative except above Subjective back pain 10/17 Objective Last 24 Hour Vital Signs Date Time Temp Pulse Resp B/P (MAP) Pulse Ox O2 Delivery O2 Flow Rate FiO2 08/13/18 08:02 98.7 85 18 136/80 (98) 100 08/13/18 05:20 142/83 08/13/18 04:54 99.3 08/13/18 04:00 99.3 86 20 142/83 (102) 99 08/13/18 00:00 98.6 74 16 105/68 (80) 96 08/12/18 23:05 Room Air 08/12/18 21:12 122/79 08/12/18 20:12 81 122/79 08/12/18 20:00 99.0 77 18 125/73 (90) 98 08/12/18 18:08 98.3 08/12/18 17:39 122/79 08/12/18 16:00 98.6 81 19 122/79 (93) 98 08/12/18 14:37 98.3 08/12/18 12:25 134/73 08/12/18 12:00 97.6 78 18 115/70 (85) 99 08/12/18 09:42 Room Air 08/12/18 09:19 126/73 08/12/18 09:16 126/73 08/12/18 09:16 86 126/73 08/12/18 09:14 86 126/73 Intake and Output 08/12/18 08/13/18 19:00 07:00 Intake Total 300 ml Balance 300 ml Intake Oral 300 ml # Voids 1 Laboratory Tests 08/13/18 05:54: White Blood Count 9.1, Red Blood Count 3.80L, Hemoglobin 10.6L, Hematocrit 33.9L , Mean Corpuscular Volume 89, Mean Corpuscular Hemoglobin 28.0, Mean Corpuscular Hemoglobin Concent 31.4L, Red Cell Distribution Width 16.9H, Platelet Count 277, Mean Platelet Volume 5.5L, Neutrophils (%) (Auto) 69.4, Lymphocytes (%) (Auto) 23.9, Monocytes (%) (Auto) 4.5, Eosinophils (%) (Auto) 1.4, Basophils (%) (Auto) 0.8, Sodium Level 143, Potassium Level 4.2, Chloride Level 106, Carbon Dioxide Level 25, Anion Gap 12, Blood Urea Nitrogen 18, Creatinine 0.9, Estimat Glomerular Filtration Rate > 60, Glucose Level 133H, Calcium Level 9.2 Height (Feet): 5 Height (Inches): 3.00 Weight (Pounds): 150 General Appearance: alert EENT: normal ENT inspection Neck: normal alignment Cardiovascular: normal peripheral pulses, normal rate, regular rhythm Respiratory/Chest: chest wall non-tender, lungs clear, normal breath sounds Abdomen: normal bowel sounds, non tender, soft Extremities: normal inspection Edema: no edema noted Arm (L), no edema noted Arm (R), no edema noted Leg (L), no edema noted Leg (R), no edema noted Pedal (L), no edema noted Pedal (R), no edema noted Generalized Neurologic: responsive, motor weakness Skin: normal pigmentation, warm/dry Ernesto Magallon DO Aug 13, 2018 08:33
[2018-08-13] MEDS: DULoxetine 30mg cap ORAL SCH (08:46)
[2018-08-13] MEDS: rOPINIRole 0.25mg tab ORAL SCH ×4 (08:47→18:15)
[2018-08-13] MEDS: Losartan 50mg tab ORAL SCH (08:48)
[2018-08-13] MEDS: Methocarbamol 750mg tab ORAL SCH ×4 (08:48→20:56)
[2018-08-13] MEDS: Metoprolol Tartrate 50mg tab ORAL SCH ×2 (08:50→20:57)
[2018-08-13] MEDS ORDERED: Lisinopril 20mg tab ORAL SCH (09:00)
--- NOTE | 2018-08-13 11:14 | Pulmonology Progress Note ---
Assessment/Plan Problems: (1) Intractable back pain (2) Benzodiazepine dependence (3) Chronic back pain (4) HTN (hypertension) (5) Anxiety (6) Opioid dependence Assessment/Plan doing better less pain more relaxed monitor BP check electrolytes Anxiolytics prn dvt prophylaxis. Subjective ROS Limited/Unobtainable: No Constitutional: Reports: no symptoms HEENT: Repors: no symptoms Allergies: Coded Allergies: MORPHINE (Verified Allergy, Mild, 04/14/18) per pt only slight itchness and resolved by benadryl. toleated dilaudid. CEFAZOLIN (Verified Allergy, Unknown, 04/15/18) IRON (Verified Allergy, Unknown, Rash, 08/09/17) had nausea, vomiting and rashes METHADONE (Verified Allergy, Unknown, 06/04/17) PENICILLINS (Verified Allergy, Unknown, 04/15/18) PREGABALIN (Verified Allergy, Unknown, 06/04/17) Objective Last 24 Hour Vital Signs Date Time Temp Pulse Resp B/P (MAP) Pulse Ox O2 Delivery O2 Flow Rate FiO2 08/13/18 09:16 98.7 08/13/18 09:09 Room Air 08/13/18 08:50 85 136/80 08/13/18 08:49 80 136/80 08/13/18 08:48 136/80 08/13/18 08:47 136/80 08/13/18 08:17 98.7 08/13/18 08:02 98.7 85 18 136/80 (98) 100 08/13/18 05:20 142/83 08/13/18 04:00 99.3 86 20 142/83 (102) 99 08/13/18 00:00 98.6 74 16 105/68 (80) 96 08/12/18 23:05 Room Air 08/12/18 21:12 122/79 08/12/18 20:12 81 122/79 08/12/18 20:00 99.0 77 18 125/73 (90) 98 08/12/18 17:39 122/79 08/12/18 16:00 98.6 81 19 122/79 (93) 98 08/12/18 14:37 98.3 08/12/18 12:25 134/73 08/12/18 12:00 97.6 78 18 115/70 (85) 99 Intake and Output 08/12/18 08/13/18 18:59 06:59 Intake Total 300 ml Balance 300 ml Intake Oral 300 ml # Voids 1 Objective General Appearance: WD/WN Lines, tubes and drains: peripheral HEENT: normocephalic, anicteric Neck: non-tender, normal alignment Respiratory/Chest: chest wall non-tender, lungs clear Breasts: no masses Cardiovascular/Chest: normal peripheral pulses Abdomen: normal bowel sounds Genitourinary/Rectal: normal genital Laboratory Tests 08/13/18 05:54: White Blood Count 9.1, Red Blood Count 3.80L, Hemoglobin 10.6L, Hematocrit 33.9L , Mean Corpuscular Volume 89, Mean Corpuscular Hemoglobin 28.0, Mean Corpuscular Hemoglobin Concent 31.4L, Red Cell Distribution Width 16.9H, Platelet Count 277, Mean Platelet Volume 5.5L, Neutrophils (%) (Auto) 69.4, Lymphocytes (%) (Auto) 23.9, Monocytes (%) (Auto) 4.5, Eosinophils (%) (Auto) 1.4, Basophils (%) (Auto) 0.8, Sodium Level 143, Potassium Level 4.2, Chloride Level 106, Carbon Dioxide Level 25, Anion Gap 12, Blood Urea Nitrogen 18, Creatinine 0.9, Estimat Glomerular Filtration Rate > 60, Glucose Level 133H, Calcium Level 9.2 Current Medications Medications (Trade) Dose Ordered Sig/Danni Route PRN Reason Start Time Stop Time Status Last Admin Dose Admin Amitriptyline HCl (Elavil) 25 mg BEDTIME ORAL 08/10/18 22:15 09/09/18 22:14 08/12/18 20:12 Amlodipine Besylate (Norvasc) 10 mg DAILY ORAL 08/13/18 09:00 09/10/18 08:59 08/13/18 08:49 Aspirin (ASA) 325 mg DAILY ORAL 08/12/18 09:00 09/11/18 08:59 08/13/18 08:46 Atorvastatin Calcium (Lipitor) 40 mg BEDTIME ORAL 08/11/18 21:00 09/10/18 20:59 08/12/18 20:13 Carisoprodol (Soma) 300 mg TID ORAL 08/11/18 09:00 09/10/18 08:59 08/13/18 08:46 Chlorhexidine Gluconate (Margot-Hex 2%) 1 applic DAILY@2000 TOPIC 08/12/18 20:00 09/11/18 19:59 08/12/18 19:58 Clonazepam (KlonoPIN) 1 mg Q6HR ORAL 08/11/18 00:00 08/18/18 00:00 08/13/18 05:20 Diphenhydramine HCl (Benadryl) 25 mg Q6H PRN IVP Itching 08/11/18 12:30 09/10/18 12:29 08/13/18 05:21 Duloxetine HCl (Cymbalta) 30 mg DAILY ORAL 08/11/18 09:00 09/10/18 08:59 08/13/18 08:46 Folic Acid (Folate) 2 mg DAILY ORAL 08/13/18 09:00 09/12/18 08:59 08/13/18 08:47 Gabapentin (Neurontin) 300 mg THREE TIMES A DAY ORAL 08/11/18 09:00 09/10/18 08:59 08/13/18 08:50 Hydralazine HCl (Apresoline) 50 mg EVERY 8 HOURS ORAL 08/12/18 22:00 09/10/18 00:00 08/13/18 05:20 Hydromorphone HCl (Dilaudid) 2 mg Q3H PRN IVP Severe Pain (Pain Scale 7-10) 08/10/18 22:30 08/17/18 22:29 08/13/18 10:49 Hydromorphone HCl (Dilaudid) 4 mg Q4H PRN ORAL severe break through pain 08/11/18 17:12 08/18/18 17:11 Iron Sucrose 100 mg/Sodium Chloride 60 ml @ 240 mls/hr BEDTIME IVPB 08/12/18 21:00 08/16/18 21:14 Lisinopril (Prinivil) 20 mg DAILY ORAL 08/13/18 09:00 09/10/18 08:59 08/13/18 08:47 Lorazepam (Ativan 2mg/ml 1ml) 0.5 mg Q4H PRN IV For Anxiety 08/11/18 12:30 08/18/18 12:29 Losartan Potassium (Cozaar) 50 mg BID ORAL 08/12/18 18:00 09/10/18 17:59 08/13/18 08:48 Methocarbamol (Robaxin) 750 mg QID ORAL 08/11/18 13:00 09/10/18 12:59 08/13/18 08:48 Metoprolol Tartrate (Lopressor) 50 mg Q12HR ORAL 08/11/18 21:00 09/10/18 20:59 08/13/18 08:50 Morphine Sulfate (MS Contin) 30 mg Q8HR ORAL 08/11/18 22:00 08/18/18 21:59 08/13/18 05:20 Pantoprazole (Protonix) 40 mg DAILY ORAL 08/11/18 09:00 09/10/18 08:59 08/13/18 08:49 Ropinirole HCl (Requip) 0.5 mg THREE TIMES A DAY ORAL 08/11/18 09:00 09/10/18 08:59 08/13/18 08:47 Adam Tom MD Aug 13, 2018 11:14
[2018-08-13 12:00] VITALS: BP 121/71
--- NOTE | 2018-08-13 12:09 | NUR ---
CASE MANAGEMENT: REVIEW 08/13/2018 SI: INTRACTABLE BACK PAIN. HYPOKALEMIA T 98.7 HR 85 RR 18 B/P 136/80 SATS 100% ON RA GLU 133 IS: HYDRALAZINE PO Q8H ELAVIL PO QHS LIPITOR PO QHS VENOFER IV QHS COZAAR PO BID CYMBALTA PO QD ASA PO QD LISINOPRIL PO QD NORVASC PO QD KLONOPIN PO Q6H MS CONTIN PO Q8H ROBAXIN PO QID SOMA PO TID GABAPENTIN PO TID REQUIP PO TID : TO MED/SURG [facility]
--- NOTE | 2018-08-13 12:42 | Nephrology Progress Note ---
Assessment/Plan Problem List: (1) HTN (hypertension) (2) Opioid dependence (3) Anemia (4) Hypokalemia Assessment HTN on variety of anti hypertensives HypoKalemia Low Iron Anemia Low folate multi drug allergies Plan BP meds adjustment and parameters states Iron Allergy k supplement given per consultants Objective Objective Last 24 Hour Vital Signs Date Time Temp Pulse Resp B/P (MAP) Pulse Ox O2 Delivery O2 Flow Rate FiO2 08/13/18 12:00 98.9 70 19 121/71 (88) 95 08/13/18 11:19 98.7 08/13/18 09:16 98.7 08/13/18 09:09 Room Air 08/13/18 08:50 85 136/80 08/13/18 08:49 80 136/80 08/13/18 08:48 136/80 08/13/18 08:47 136/80 08/13/18 08:02 98.7 85 18 136/80 (98) 100 08/13/18 05:20 142/83 08/13/18 04:00 99.3 86 20 142/83 (102) 99 08/13/18 00:00 98.6 74 16 105/68 (80) 96 08/12/18 23:05 Room Air 08/12/18 21:12 122/79 08/12/18 20:12 81 122/79 08/12/18 20:00 99.0 77 18 125/73 (90) 98 08/12/18 17:39 122/79 08/12/18 16:00 98.6 81 19 122/79 (93) 98 08/12/18 14:37 98.3 Intake and Output 08/12/18 08/13/18 18:59 06:59 Intake Total 300 ml Balance 300 ml Intake Oral 300 ml # Voids 1 Laboratory Tests 08/13/18 05:54: White Blood Count 9.1, Red Blood Count 3.80L, Hemoglobin 10.6L, Hematocrit 33.9L , Mean Corpuscular Volume 89, Mean Corpuscular Hemoglobin 28.0, Mean Corpuscular Hemoglobin Concent 31.4L, Red Cell Distribution Width 16.9H, Platelet Count 277, Mean Platelet Volume 5.5L, Neutrophils (%) (Auto) 69.4, Lymphocytes (%) (Auto) 23.9, Monocytes (%) (Auto) 4.5, Eosinophils (%) (Auto) 1.4, Basophils (%) (Auto) 0.8, Sodium Level 143, Potassium Level 4.2, Chloride Level 106, Carbon Dioxide Level 25, Anion Gap 12, Blood Urea Nitrogen 18, Creatinine 0.9, Estimat Glomerular Filtration Rate > 60, Glucose Level 133H, Calcium Level 9.2 Height (Feet): 5 Height (Inches): 3.00 Weight (Pounds): 150 Nelson Hawkins MD Aug 13, 2018 12:42
[2018-08-13 16:00] VITALS: BP 118/72
--- NOTE | 2018-08-13 16:38 | NUR ---
NURSE NOTES: PT JUST MEDICATED FOR PAIN ORDERED. REPORT GIVEN TO Juanjo GALARZA RN.
--- NOTE | 2018-08-13 16:40 | NUR ---
HAND-OFF: Report given to Juanjo GALARZA RN.
[2018-08-13] MEDS: Lisinopril 20mg tab ORAL SCH (17:47)
--- NOTE | 2018-08-13 19:20 | NUR ---
NURSE NOTES: Report taken from CHERI Osman. patient is awake seated at the edge of the bed, A&Ox4. No signs of distress on room air. Adminsitered pain meds, pain is 9/10, no radiating symptoms. Port-a-cath, Rt upper chest wall, c/d/i and patent, ok to run fluids through port. Patient seems agitated, asks for a medications prior to administration, RN went over schedule with her. Bed in lowest position, call light within reach.
[2018-08-13 20:00] VITALS: BP 131/79
[2018-08-13] MEDS: Dyna-Hex 2% Top Sol 2oz TOPIC SCH (20:00)
--- NOTE | 2018-08-13 20:00 | NUR ---
HAND-OFF: Report given to CHERI Friedman.
[2018-08-13] MEDS: Atorvastatin 20mg tab ORAL SCH (20:56)
--- NOTE | 2018-08-13 21:29 | NUR ---
NURSE NOTES: Patient has allergy to Iron. Contacted MD prior to administration for approval of infusion. Gave benadryl at 2054. Dr. Tom approved infusion.
[2018-08-13] MEDS: Iron Sucrose 100 MG in NS 55 ML IVPB SCH (21:45)
--- NOTE | 2018-08-13 21:45 | NUR ---
NURSE NOTES: Patient continues to be agitated. States that her medication schedule has been continuously changing. Also told RN that day RN did not given Dilaudid dose at 1905. I went over the medication schedule with her multiple times and reassured her that the medication times and administrations were correct.
[2018-08-14] VITALS: BP 121/77
--- NOTE | 2018-08-14 03:45 | Consultation ---
DATE OF CONSULTATION: 08/13/2018 NOTE: POOR AUDIO HISTORY OF PRESENT ILLNESS: This is a 53-year-old female patient, who came into the hospital because of intractable pain and this consultation is requested for this patient to be seen because she has intractable low back pain with chronic pain and syndrome, but she still has high levels of depression worsened by pain. She is also on a regimen of Cymbalta, which is the reason why this consultation was requested to help manage her depression and anxiety. I saw and assessed this patient at bedside. She is depression, anxiety, and seems to want to focus more on the pain and tends to be getting more irritable as the pain worsened according to the patient. As far as her medical history, she has a history of chronic syndrome, chronic low back pain, and hypertension. ALLERGIES: Cefazolin, iron, methadone, morphine, penicillin, and pregabalin. PSYCHOTROPIC MEDICATIONS: On admission, . SUBSTANCE ABUSE HISTORY: Denies any history of drug or alcohol use. PAIN ASSESSMENT: . DEVELOPMENTAL PROBLEMS: Denies. SOCIAL HISTORY: The patient lives in a private residence. Financially supported by [employer] and Medicare. PSYCHIATRIC HISTORY: Major depressive disorder, mild and recurrent without psychotic features. She also has generalized anxiety disorder. PAST MEDICAL HISTORY: As far as this patient's medical, chronic syndrome, chronic pain, and hypertension. STRENGTHS: She is motivated to get better and has a place to live. WEAKNESSES: The patient is impulsive and minimal support system. MENTAL STATUS EXAMINATION: This is a 53-year-old female. Appearance is disheveled. Attitude, irritable and agitated. Affect, guarded and restricted. Intellect poor. Mood is depressed and anxious. Motor activity, psychomotor agitation. Attention span is fair. She is able to recognize person, place, time, and situation. Speech is normal volume and slow. Thought process linear and goal directed. Intellect is good as she knows current events and knows the last four presidents. Thought content, denies auditory or visual hallucinations or delusions. Perception is good. She has no perceptual disturbances. Her is clear. is fair. She is able to make clear decisions for herself. Denies suicidal or homicidal thoughts. As far as her short-term memory, 3/3 words recalled after 5-minute delay with good short-term memory. Long-term memory is intact based on the knowledge of long-term events in her life such as the high school that she went to. Her gait is normal. There is no . There is no history of abuse, there is no . DIAGNOSIS: 1. Generalized anxiety disorder. 2. Major depressive disorder, mild and recurrent without psychotic features. 3. Hypertension. 4. Chronic pain. 5. Psychosocial stressors and financial. PLAN: Continue to treat this patient with some Neurontin 300 mg three times a day for neuropathic pain, Ativan 0.5 mg IV q.4 hours p.r.n. anxiety and agitation. We will continue this patient on Cymbalta 30 mg p.o. daily. Provided with 20 minutes of cognitive behavioral therapy to help identify her automatic negative thoughts and to convert those negative thoughts to more positive thoughts to reduce depression. Chart reviewed. Discussed with staff. Seen and assessed at bedside. Amanda Crews M.D. DR: SANDRA JOB#: [id number] CC:
[2018-08-14 04:00] VITALS: BP 128/71
[2018-08-14] MEDS: HydrALAZINE 50mg tab ORAL SCH ×3 (05:53→21:41)
[2018-08-14] MEDS: MS Contin 15mg tab ORAL SCH ×3 (06:00→21:41)
--- NOTE | 2018-08-14 07:25 | NUR ---
HAND-OFF: Report given to CHERI Mehta. patient awake and stable in bed.
--- NOTE | 2018-08-14 07:29 | NUR ---
NURSE NOTES: received report from CHERI Friedman. AOx4 no respiratory distress noted. port a cath on rt upper chest. flushed. no s/sx of infection. bed in the lowest position. call light within reach. alarm on. will continue to monitor.
[2018-08-14 08:00] VITALS: BP 99/70
[2018-08-14 08:02] LABS: BASOPHILS % (AUTO) 1.2 % (0.0-2.0); EOSINOPHILS % (AUTO) 2.1 % (0.0-3.0); HEMATOCRIT 35.1 % (37.0-47.0); HEMOGLOBIN 11.3 G/DL (12.0-16.0); LYMPHOCYTES % (AUTO) 30.8 % (20.0-45.0); MEAN CORPUSCULAR VOLUME 88 FL (80-99); MONOCYTES % (AUTO) 3.9 % (1.0-10.0); NEUTROPHILS % (AUTO) 62.1 % (45.0-75.0); PLATELET COUNT 299 K/UL (150-450); RED BLOOD COUNT 3.97 M/UL (4.20-5.40); RED CELL DISTRIBUTION WIDTH 16.4 % (11.6-14.8); WHITE BLOOD COUNT 6.2 K/UL (4.8-10.8)
[2018-08-14 08:10] LABS: ANION GAP 8 mmol/L (5-15); BLOOD UREA NITROGEN 17 mg/dL (7-18); CALCIUM 9.4 MG/DL (8.5-10.1); CARBON DIOXIDE 28 MMOL/L (21-32); CHLORIDE 106 MMOL/L (98-107); CREATININE 0.8 MG/DL (0.55-1.30); POTASSIUM 4.1 MMOL/L (3.5-5.1); SODIUM 142 MMOL/L (136-145)
[2018-08-14] MEDS: DULoxetine 30mg cap ORAL SCH (08:36)
--- NOTE | 2018-08-14 08:36 | General Progress Note ---
Assessment/Plan Problem List: (1) intractable back pain (2) Anemia ICD Codes: D64.9 - Anemia, unspecified SNOMED: 174801946 (3) Anxiety ICD Codes: F41.9 - Anxiety disorder, unspecified SNOMED: 87451440 (4) HTN (hypertension) ICD Codes: I10 - Essential (primary) hypertension SNOMED: 65999846 Status: unchanged Assessment/Plan pt diet pain control heme eval cbc bmp am Subjective Constitutional: Reports: weakness Allergies: Coded Allergies: MORPHINE (Verified Allergy, Mild, 04/14/18) per pt only slight itchness and resolved by benadryl. toleated dilaudid. CEFAZOLIN (Verified Allergy, Unknown, 04/15/18) IRON (Verified Allergy, Unknown, Rash, 08/09/17) had nausea, vomiting and rashes METHADONE (Verified Allergy, Unknown, 06/04/17) PENICILLINS (Verified Allergy, Unknown, 04/15/18) PREGABALIN (Verified Allergy, Unknown, 06/04/17) All Systems: reviewed and negative except above Subjective back pain 10/17 Objective Last 24 Hour Vital Signs Date Time Temp Pulse Resp B/P (MAP) Pulse Ox O2 Delivery O2 Flow Rate FiO2 08/14/18 08:00 98.4 91 17 99/70 (80) 98 08/14/18 05:53 134/75 08/14/18 04:00 98.4 84 17 128/71 (90) 98 08/14/18 00:00 98.4 88 18 121/77 (92) 95 08/13/18 22:14 131/79 08/13/18 21:00 Room Air 08/13/18 20:57 87 131/79 08/13/18 20:00 99.2 87 18 131/79 (96) 96 08/13/18 17:47 118/72 08/13/18 16:29 98.8 08/13/18 16:00 98.8 84 17 118/72 (87) 100 08/13/18 14:27 98.9 08/13/18 13:58 123/81 08/13/18 13:22 98.9 08/13/18 12:00 98.9 70 19 121/71 (88) 95 08/13/18 09:09 Room Air 08/13/18 08:50 85 136/80 08/13/18 08:49 80 136/80 08/13/18 08:48 136/80 08/13/18 08:47 136/80 Intake and Output 08/13/18 08/14/18 19:00 07:00 Intake Total 800 ml 960 ml Balance 800 ml 960 ml Other 800 ml 960 ml # Voids 3 Laboratory Tests 08/14/18 05:50: White Blood Count 6.2, Red Blood Count 3.97L, Hemoglobin 11.3L, Hematocrit 35.1L , Mean Corpuscular Volume 88, Mean Corpuscular Hemoglobin 28.4, Mean Corpuscular Hemoglobin Concent 32.1, Red Cell Distribution Width 16.4H, Platelet Count 299, Mean Platelet Volume 5.5L, Neutrophils (%) (Auto) 62.1, Lymphocytes (%) (Auto) 30.8, Monocytes (%) (Auto) 3.9, Eosinophils (%) (Auto) 2.1, Basophils (%) (Auto) 1.2, Sodium Level 142, Potassium Level 4.1, Chloride Level 106, Carbon Dioxide Level 28, Anion Gap 8, Blood Urea Nitrogen 17, Creatinine 0.8, Estimat Glomerular Filtration Rate > 60, Glucose Level 94, Calcium Level 9.4 Height (Feet): 5 Height (Inches): 3.00 Weight (Pounds): 150 General Appearance: lethargic EENT: normal ENT inspection Neck: normal alignment Cardiovascular: normal peripheral pulses, normal rate, regular rhythm Respiratory/Chest: chest wall non-tender, lungs clear, normal breath sounds Abdomen: normal bowel sounds, non tender, soft Extremities: normal inspection Edema: no edema noted Arm (L), no edema noted Arm (R), no edema noted Leg (L), no edema noted Leg (R), no edema noted Pedal (L), no edema noted Pedal (R), no edema noted Generalized Neurologic: responsive, motor weakness Skin: normal pigmentation, warm/dry Ernesto Magallon DO Aug 14, 2018 08:36
[2018-08-14] MEDS: rOPINIRole 0.25mg tab ORAL SCH ×3 (08:37→18:30)
[2018-08-14] MEDS: Methocarbamol 750mg tab ORAL SCH ×5 (08:37→21:00)
[2018-08-14] MEDS: Metoprolol Tartrate 50mg tab ORAL SCH ×2 (08:38→21:40)
[2018-08-14] MEDS: Lisinopril 20mg tab ORAL SCH (08:38)
--- NOTE | 2018-08-14 10:42 | General Progress Note ---
Assessment/Plan Assessment/Plan (1) Lumbar DDD (2) Lumbar spondylosis (4) Lumbar Herniated disc (5) Lumbar Radiculopathy (6) H/O Lumbar fusion revision Patient to be continued on Dilaudid and Morphine ER. D/w Dr. Singh and he concurred. Subjective Date patient seen: Aug 14, 2018 Time patient seen: 09:30 - am Allergies: Coded Allergies: MORPHINE (Verified Allergy, Mild, 04/14/18) per pt only slight itchness and resolved by benadryl. toleated dilaudid. CEFAZOLIN (Verified Allergy, Unknown, 04/15/18) IRON (Verified Allergy, Unknown, Rash, 08/09/17) had nausea, vomiting and rashes METHADONE (Verified Allergy, Unknown, 06/04/17) PENICILLINS (Verified Allergy, Unknown, 04/15/18) PREGABALIN (Verified Allergy, Unknown, 06/04/17) Subjective REVIEW OF SYSTEMS: Denies fever, chills, sweating, dizziness, drowsiness, sore throat, or change in her weight. No shortness of breath or chest pain. No nausea, vomiting, diarrhea, or blood in stool or urine. No bowel or bladder incontinence. No dysuria. She is complaining of low back pain. SUBJECTIVE: Patient is in bed and has no new complaints at this time. Pain has been unchanged tolerated on the Morphine ER and Dilaudid. Objective Last 24 Hour Vital Signs Date Time Temp Pulse Resp B/P (MAP) Pulse Ox O2 Delivery O2 Flow Rate FiO2 08/14/18 09:00 Room Air 08/14/18 08:38 99/70 08/14/18 08:38 91 99/70 08/14/18 08:38 91 99/70 08/14/18 08:00 98.4 91 17 99/70 (80) 98 08/14/18 05:53 134/75 08/14/18 04:00 98.4 84 17 128/71 (90) 98 08/14/18 00:00 98.4 88 18 121/77 (92) 95 08/13/18 22:14 131/79 08/13/18 21:00 Room Air 08/13/18 20:57 87 131/79 08/13/18 20:00 99.2 87 18 131/79 (96) 96 08/13/18 17:47 118/72 08/13/18 16:29 98.8 08/13/18 16:00 98.8 84 17 118/72 (87) 100 08/13/18 14:27 98.9 08/13/18 13:58 123/81 08/13/18 13:22 98.9 08/13/18 12:00 98.9 70 19 121/71 (88) 95 Intake and Output 08/13/18 08/14/18 19:00 07:00 Intake Total 800 ml 960 ml Balance 800 ml 960 ml Other 800 ml 960 ml # Voids 3 Laboratory Tests 08/14/18 05:50: White Blood Count 6.2, Red Blood Count 3.97L, Hemoglobin 11.3L, Hematocrit 35.1L , Mean Corpuscular Volume 88, Mean Corpuscular Hemoglobin 28.4, Mean Corpuscular Hemoglobin Concent 32.1, Red Cell Distribution Width 16.4H, Platelet Count 299, Mean Platelet Volume 5.5L, Neutrophils (%) (Auto) 62.1, Lymphocytes (%) (Auto) 30.8, Monocytes (%) (Auto) 3.9, Eosinophils (%) (Auto) 2.1, Basophils (%) (Auto) 1.2, Sodium Level 142, Potassium Level 4.1, Chloride Level 106, Carbon Dioxide Level 28, Anion Gap 8, Blood Urea Nitrogen 17, Creatinine 0.8, Estimat Glomerular Filtration Rate > 60, Glucose Level 94, Calcium Level 9.4 Height (Feet): 5 Height (Inches): 3.00 Weight (Pounds): 150 Objective GENERAL: Alert, awake, and oriented x3. NECK: Range of motion is full in all directions. LUNGS: Clear. HEART: Regular. ABDOMEN: Soft Nontender. EXTREMITIES: No cyanosis. No clubbing. No edema. Tal Hewitt Aug 14, 2018 10:42
--- NOTE | 2018-08-14 11:00 | Progress Note ---
DATE: 08/14/2018 SUBJECTIVE: This is a 53-year-old female patient seen today in the hospital because of intractable back pain, but she still has some confusion, disorganized thought process, and mood lability, high levels of anxiety. That is why, her attending physician has requested daily psychiatric consultation for this patient. MENTAL STATUS EXAMINATION: This is a 53-year-old female patient. Appearance is disheveled. Attitude, irritable and agitated. Affect, guarded and restricted. Intellect poor. Mood, depressed and anxious. Motor activity, psychomotor agitation. Attention span is poor. Orientation x2. Speech is pressured. Thought process is linear and goal directed. Insight and judgment is . DIAGNOSIS: Major depressive disorder, mild, recurrent, without psychotic features, rule out generalized anxiety disorder. PLAN: Continue treatment with Neurontin 300 mg three times a day, Cymbalta 30 mg p.o. daily to reduce depression and anxiety, . Provided with 20 minutes of cognitive behavioral therapy to help identify her automatic negative thoughts and to convert those negative thoughts to more positive thoughts to reduce depression, anxiety, and suicidality. Chart reviewed. Discussed with staff. Seen and assessed at bedside. Amanda Crews M.D. DR: YEFRI JOB#: [id number] CC:
[2018-08-14 12:00] VITALS: BP 135/80
--- NOTE | 2018-08-14 13:42 | Nephrology Progress Note ---
Assessment/Plan Problem List: (1) HTN (hypertension) (2) Opioid dependence (3) Anemia (4) Hypokalemia Assessment HTN on variety of anti hypertensives HypoKalemia Low Iron Anemia Low folate multi drug allergies Plan BP meds adjustment and parameters states Iron Allergy k supplement given per consultants Subjective ROS Limited/Unobtainable: No Constitutional: Reports: malaise Objective Objective Last 24 Hour Vital Signs Date Time Temp Pulse Resp B/P (MAP) Pulse Ox O2 Delivery O2 Flow Rate FiO2 08/14/18 12:00 98.2 99 17 135/80 (98) 98 08/14/18 09:00 Room Air 08/14/18 08:38 99/70 08/14/18 08:38 91 99/70 08/14/18 08:38 91 99/70 08/14/18 08:00 98.4 91 17 99/70 (80) 98 08/14/18 05:53 134/75 08/14/18 04:00 98.4 84 17 128/71 (90) 98 08/14/18 00:00 98.4 88 18 121/77 (92) 95 08/13/18 22:14 131/79 08/13/18 21:00 Room Air 08/13/18 20:57 87 131/79 08/13/18 20:00 99.2 87 18 131/79 (96) 96 08/13/18 17:47 118/72 08/13/18 16:29 98.8 08/13/18 16:00 98.8 84 17 118/72 (87) 100 08/13/18 14:27 98.9 08/13/18 13:58 123/81 Intake and Output 08/13/18 08/14/18 18:59 06:59 Intake Total 800 ml 960 ml Balance 800 ml 960 ml Other 800 ml 960 ml # Voids 3 Laboratory Tests 08/14/18 05:50: White Blood Count 6.2, Red Blood Count 3.97L, Hemoglobin 11.3L, Hematocrit 35.1L , Mean Corpuscular Volume 88, Mean Corpuscular Hemoglobin 28.4, Mean Corpuscular Hemoglobin Concent 32.1, Red Cell Distribution Width 16.4H, Platelet Count 299, Mean Platelet Volume 5.5L, Neutrophils (%) (Auto) 62.1, Lymphocytes (%) (Auto) 30.8, Monocytes (%) (Auto) 3.9, Eosinophils (%) (Auto) 2.1, Basophils (%) (Auto) 1.2, Sodium Level 142, Potassium Level 4.1, Chloride Level 106, Carbon Dioxide Level 28, Anion Gap 8, Blood Urea Nitrogen 17, Creatinine 0.8, Estimat Glomerular Filtration Rate > 60, Glucose Level 94, Calcium Level 9.4 Height (Feet): 5 Height (Inches): 3.00 Weight (Pounds): 150 General Appearance: no apparent distress Cardiovascular: tachycardia Respiratory/Chest: decreased breath sounds Abdomen: soft Objective no change Nelosn Hawkins MD Aug 14, 2018 13:42
[2018-08-14] MEDS: DiphenhydrAMINE 50mg/ml Inj IVP PRN ×2 (14:50→21:32)
[2018-08-14 16:00] VITALS: BP 127/76
[2018-08-14] MEDS ORDERED: Tubing IV Secondary IV ONE (16:39)
--- NOTE | 2018-08-14 19:00 | NUR ---
HAND-OFF: Report given to CHERI Friedman.
--- NOTE | 2018-08-14 19:05 | NUR ---
NURSE NOTES: Report taken from CHERI Mehta. patient awake and in bed, A&Ox4. No signs of distress on room air. Stating that she is having 8/10 pain, constant with very little relief. IV Port not patent, attempted to flush with high resistance. Had to hold albumin and will replace catheter, patent aware. No skin issues present. Vital signs stable. Bed in lowest position, call light within reach.
--- NOTE | 2018-08-14 19:42 | General Progress Note ---
Assessment/Plan Assessment/Plan # Anemia of iron deficiency rule out gi bleed, ferritin is low, toelrated iv iron well thus far. without reaction --> Anemia workup has been ordered, rule out gi bleed, cea is 2.8 --> No evidence of hemolysis is noted, peripheral smear has been reviewed. --> Hgb goal >7. Transfuse prn. --> has a allergy to iron therefore may get iv iron but would start slow --> Medications have been reviewed --> evaluate with Gi team prn --> transfuse if hgb is < 7 (will trend CBC daily) # ANemia due to folic acid def --> ON folic acid 2mg po daily # HTn on variety of anti hypertensives --> per cards/renal # HypoKalemia # Benzodiazepine dependence # Chronic back pain # Anxiety and appears to be chronic The timing of this note does not necessarily reflect the time of the patient was seen. Greatly appreciate consultation! Subjective Constitutional: Denies: no symptoms, chills, diaphoresis, fever, malaise, weakness, other HEENT: Denies: no symptoms, eye pain, blurred vision, tearing, double vision, ear pain, ear discharge, nose pain, nose congestion, throat pain, throat swelling, mouth pain, mouth swelling, other Cardiovascular: Denies: no symptoms, chest pain, edema, irregular heart rate, lightheadedness, palpitations, syncope, other Respiratory: Denies: no symptoms, cough, orthopnea, shortness of breath, SOB with excertion, SOB at rest, sputum, stridor, wheezing, other Gastrointestinal/Abdominal: Denies: no symptoms, abdomen distended, abdominal pain, black stools, tarry stools, blood in stool, constipated, diarrhea, difficulty swallowing, nausea, poor appetite, poor fluid intake, rectal bleeding , vomiting, other Genitourinary: Denies: no symptoms, burning, discharge, frequency, flank pain, hematuria, incontinence, pain, urgency, other Neurologic/Psychiatric: Denies: no symptoms, anxiety, depressed, emotional problems, headache, numbness, paresthesia, pre-existing deficit, seizure, tingling, tremors, weakness, other Endocrine: Denies: no symptoms, excessive sweating, flushing, intolerance to cold, intolerance to heat, increased hunger, increased thirst, increased urine, unexplained weight gain, unexplained weight loss, other Allergies: Coded Allergies: MORPHINE (Verified Allergy, Mild, 04/14/18) per pt only slight itchness and resolved by benadryl. toleated dilaudid. CEFAZOLIN (Verified Allergy, Unknown, 04/15/18) IRON (Verified Allergy, Unknown, Rash, 08/09/17) had nausea, vomiting and rashes METHADONE (Verified Allergy, Unknown, 06/04/17) PENICILLINS (Verified Allergy, Unknown, 04/15/18) PREGABALIN (Verified Allergy, Unknown, 06/04/17) Subjective 08/14: hgb is improved, has received iv iron and tolerated treatemnt well Objective Last 24 Hour Vital Signs Date Time Temp Pulse Resp B/P (MAP) Pulse Ox O2 Delivery O2 Flow Rate FiO2 08/14/18 16:00 98.3 104 17 127/76 (93) 96 08/14/18 14:10 135/80 08/14/18 12:00 98.2 99 17 135/80 (98) 98 08/14/18 09:00 Room Air 08/14/18 08:38 99/70 08/14/18 08:38 91 99/70 08/14/18 08:38 91 99/70 08/14/18 08:00 98.4 91 17 99/70 (80) 98 08/14/18 05:53 134/75 08/14/18 04:00 98.4 84 17 128/71 (90) 98 08/14/18 00:00 98.4 88 18 121/77 (92) 95 08/13/18 22:14 131/79 08/13/18 21:00 Room Air 08/13/18 20:57 87 131/79 08/13/18 20:00 99.2 87 18 131/79 (96) 96 Intake and Output 08/13/18 08/14/18 19:00 07:00 Intake Total 800 ml 960 ml Balance 800 ml 960 ml Other 800 ml 960 ml # Voids 3 Laboratory Tests 08/14/18 05:50: White Blood Count 6.2, Red Blood Count 3.97L, Hemoglobin 11.3L, Hematocrit 35.1L , Mean Corpuscular Volume 88, Mean Corpuscular Hemoglobin 28.4, Mean Corpuscular Hemoglobin Concent 32.1, Red Cell Distribution Width 16.4H, Platelet Count 299, Mean Platelet Volume 5.5L, Neutrophils (%) (Auto) 62.1, Lymphocytes (%) (Auto) 30.8, Monocytes (%) (Auto) 3.9, Eosinophils (%) (Auto) 2.1, Basophils (%) (Auto) 1.2, Sodium Level 142, Potassium Level 4.1, Chloride Level 106, Carbon Dioxide Level 28, Anion Gap 8, Blood Urea Nitrogen 17, Creatinine 0.8, Estimat Glomerular Filtration Rate > 60, Glucose Level 94, Calcium Level 9.4 Height (Feet): 5 Height (Inches): 3.00 Weight (Pounds): 150 EENT: normal ENT inspection Neck: supple Cardiovascular: regular rhythm Respiratory/Chest: no respiratory distress Abdomen: abnormal bowel sounds Edema: mild edema Neurologic: alert Skin: warm/dry Objective General Appearance: WD/WN Lines, tubes and drains: peripheral HEENT: normocephalic, anicteric Neck: non-tender, normal alignment Respiratory/Chest: chest wall non-tender, lungs clear Breasts: no masses Cardiovascular/Chest: normal peripheral pulses Abdomen: normal bowel sounds Genitourinary/Rectal: normal genital exam Extremities: normal range of motion Aroldo Odom MD Aug 14, 2018 19:42
[2018-08-14 20:00] VITALS: BP 146/89
[2018-08-14] MEDS: Dyna-Hex 2% Top Sol 2oz TOPIC SCH (20:00)
--- NOTE | 2018-08-14 21:00 | NUR ---
NURSE NOTES: New catheter placed, 20g. C/d/i and patent.
[2018-08-14] MEDS: Iron Sucrose 100 MG in NS 55 ML IVPB SCH (21:32)
[2018-08-14] MEDS: Atorvastatin 20mg tab ORAL SCH (21:35)
[2018-08-15] VITALS: BP 128/81
[2018-08-15 04:15] VITALS: BP 124/78
[2018-08-15] MEDS: HydrALAZINE 50mg tab ORAL SCH ×3 (05:38→22:33)
[2018-08-15] MEDS: MS Contin 15mg tab ORAL SCH ×3 (05:39→22:34)
[2018-08-15] MEDS: DiphenhydrAMINE 50mg/ml Inj IVP PRN ×2 (05:43→13:14)
--- NOTE | 2018-08-15 07:30 | NUR ---
NURSE NOTES: Patient is sitting up at the edge of the bed. Stable with no s/s acute distress. Patient complains of severe pain, will administer pain medication as ordered. Patient encouraged to use call light for assistance, verbalized understanding. Discussed plan of care with patient. Patient is in good spirits with call light within reach. Will continue to monitor.
--- NOTE | 2018-08-15 07:35 | NUR ---
HAND-OFF: Report given to CHERI Faulkner. patient is awake at bedside, vital signs stable.
[2018-08-15 07:56] LABS: HEMATOCRIT 30.2 % (37.0-47.0); HEMOGLOBIN 9.6 G/DL (12.0-16.0); MEAN CORPUSCULAR VOLUME 88 FL (80-99); PLATELET COUNT 287 K/UL (150-450); RED BLOOD COUNT 3.45 M/UL (4.20-5.40); RED CELL DISTRIBUTION WIDTH 16.6 % (11.6-14.8); WHITE BLOOD COUNT 6.3 K/UL (4.8-10.8)
[2018-08-15 08:00] VITALS: BP 127/73
[2018-08-15 08:23] LABS: ANION GAP 10 mmol/L (5-15); BLOOD UREA NITROGEN 13 mg/dL (7-18); CALCIUM 8.5 MG/DL (8.5-10.1); CARBON DIOXIDE 27 MMOL/L (21-32); CHLORIDE 105 MMOL/L (98-107); CREATININE 0.8 MG/DL (0.55-1.30); POTASSIUM 3.9 MMOL/L (3.5-5.1); SODIUM 142 MMOL/L (136-145)
--- NOTE | 2018-08-15 08:44 | General Progress Note ---
Assessment/Plan Assessment/Plan (1) Lumbar DDD (2) Lumbar spondylosis (4) Lumbar Herniated disc (5) Lumbar Radiculopathy (6) H/O Lumbar fusion revision Patient to be continued on Dilaudid and Morphine ER. D/w Dr. Singh and he concurred. Subjective Date patient seen: Aug 15, 2018 Time patient seen: 08:00 - am Allergies: Coded Allergies: MORPHINE (Verified Allergy, Mild, 04/14/18) per pt only slight itchness and resolved by benadryl. toleated dilaudid. CEFAZOLIN (Verified Allergy, Unknown, 04/15/18) IRON (Verified Allergy, Unknown, Rash, 08/09/17) had nausea, vomiting and rashes METHADONE (Verified Allergy, Unknown, 06/04/17) PENICILLINS (Verified Allergy, Unknown, 04/15/18) PREGABALIN (Verified Allergy, Unknown, 06/04/17) Subjective REVIEW OF SYSTEMS: Denies fever, chills, sweating, dizziness, drowsiness, sore throat, or change in her weight. No shortness of breath or chest pain. No nausea, vomiting, diarrhea, or blood in stool or urine. No bowel or bladder incontinence. No dysuria. She is complaining of low back pain. SUBJECTIVE: Patient continues to c/o pain which has been unchanged using the Morphine ER and Dilaudid. She has no new complaints at this time. D/w nurse. Objective Last 24 Hour Vital Signs Date Time Temp Pulse Resp B/P (MAP) Pulse Ox O2 Delivery O2 Flow Rate FiO2 08/15/18 05:38 128/78 08/15/18 04:15 98.4 86 17 124/78 (93) 98 08/15/18 00:00 97.9 85 18 128/81 (97) 99 08/14/18 21:41 146/89 08/14/18 21:40 108 146/89 08/14/18 21:00 Room Air 08/14/18 20:00 98.8 107 17 146/89 (108) 99 08/14/18 16:00 98.3 104 17 127/76 (93) 96 08/14/18 14:10 135/80 08/14/18 12:00 98.2 99 17 135/80 (98) 98 08/14/18 09:00 Room Air Intake and Output 08/14/18 08/15/18 19:00 07:00 Intake Total 700 ml 720 ml Balance 700 ml 720 ml Intake Oral 700 ml 720 ml # Voids 3 3 # Bowel Movements 1 Laboratory Tests 08/15/18 05:35: White Blood Count 6.3, Red Blood Count 3.45L, Hemoglobin 9.6L, Hematocrit 30.2L , Mean Corpuscular Volume 88, Mean Corpuscular Hemoglobin 27.8, Mean Corpuscular Hemoglobin Concent 31.7L, Red Cell Distribution Width 16.6H, Platelet Count 287, Mean Platelet Volume 5.4L, Neutrophils (%) (Auto) , Lymphocytes (%) (Auto) , Monocytes (%) (Auto) , Eosinophils (%) (Auto) , Basophils (%) (Auto) , Neutrophils % (Manual) [Pending], Lymphocytes % (Manual) [Pending], Platelet Estimate [Pending], Platelet Morphology [Pending], Sodium Level 142, Potassium Level 3.9, Chloride Level 105, Carbon Dioxide Level 27, Anion Gap 10, Blood Urea Nitrogen 13, Creatinine 0.8, Estimat Glomerular Filtration Rate > 60, Glucose Level 169H, Calcium Level 8.5 Height (Feet): 5 Height (Inches): 3.00 Weight (Pounds): 150 Objective GENERAL: Alert, awake, and oriented x3. NECK: Range of motion is full in all directions. LUNGS: Clear. HEART: Regular. ABDOMEN: Soft Nontender. EXTREMITIES: No cyanosis. No clubbing. No edema. Tal Hewitt Aug 15, 2018 08:44
--- NOTE | 2018-08-15 09:23 | NUR ---
CASE MANAGEMENT: REVIEW 08/15/2018 SI: INTRACTABLE BACK PAIN. HYPOKALEMIA 98.4 86 17 124/78 98% ON RA H/H-9.6/30.2 IS: NORVASC PO QD LISINOPRIL PO QD SOMA PO TID HYDRALAZINE PO Q8HR IV DILAUDID Q3HRS PRN : TO MED/SURG 3 [facility] DCP: FROM HOME
[2018-08-15] MEDS: Methocarbamol 750mg tab ORAL SCH ×4 (09:38→21:01)
[2018-08-15] MEDS: DULoxetine 30mg cap ORAL SCH (09:39)
[2018-08-15] MEDS: Metoprolol Tartrate 50mg tab ORAL SCH ×2 (09:39→20:59)
[2018-08-15] MEDS: Lisinopril 20mg tab ORAL SCH (09:39)
[2018-08-15] MEDS: rOPINIRole 0.25mg tab ORAL SCH ×3 (09:39→18:50)
--- NOTE | 2018-08-15 11:25 | Pulmonology Progress Note ---
Assessment/Plan Problems: (1) Intractable back pain (2) Benzodiazepine dependence (3) Chronic back pain (4) HTN (hypertension) (5) Anxiety (6) Opioid dependence Assessment/Plan wants to get more venofer IV less pain more relaxed monitor BP check electrolytes Anxiolytics prn dvt prophylaxis. Subjective ROS Limited/Unobtainable: No Interval Events: late not for 08/14 Constitutional: Reports: no symptoms Allergies: Coded Allergies: MORPHINE (Verified Allergy, Mild, 04/14/18) per pt only slight itchness and resolved by benadryl. toleated dilaudid. CEFAZOLIN (Verified Allergy, Unknown, 04/15/18) IRON (Verified Allergy, Unknown, Rash, 08/09/17) had nausea, vomiting and rashes METHADONE (Verified Allergy, Unknown, 06/04/17) PENICILLINS (Verified Allergy, Unknown, 04/15/18) PREGABALIN (Verified Allergy, Unknown, 06/04/17) Objective Last 24 Hour Vital Signs Date Time Temp Pulse Resp B/P (MAP) Pulse Ox O2 Delivery O2 Flow Rate FiO2 08/15/18 09:39 127/73 08/15/18 09:39 103 127/73 08/15/18 09:39 103 127/73 08/15/18 09:00 Room Air 08/15/18 08:00 99.2 82 18 127/73 (91) 97 08/15/18 05:38 128/78 08/15/18 04:15 98.4 86 17 124/78 (93) 98 08/15/18 00:00 97.9 85 18 128/81 (97) 99 08/14/18 21:41 146/89 08/14/18 21:40 108 146/89 08/14/18 21:00 Room Air 08/14/18 20:00 98.8 107 17 146/89 (108) 99 08/14/18 16:00 98.3 104 17 127/76 (93) 96 08/14/18 14:10 135/80 08/14/18 12:00 98.2 99 17 135/80 (98) 98 Intake and Output 08/14/18 08/15/18 19:00 07:00 Intake Total 700 ml 720 ml Balance 700 ml 720 ml Intake Oral 700 ml 720 ml # Voids 3 3 # Bowel Movements 1 Objective General Appearance: WD/WN Lines, tubes and drains: peripheral HEENT: normocephalic, anicteric Neck: non-tender, normal alignment Respiratory/Chest: chest wall non-tender, lungs clear Breasts: no masses Cardiovascular/Chest: normal peripheral pulses Abdomen: normal bowel sounds Genitourinary/Rectal: normal genital Laboratory Tests 08/15/18 05:35: White Blood Count 6.3, Red Blood Count 3.45L, Hemoglobin 9.6L, Hematocrit 30.2L , Mean Corpuscular Volume 88, Mean Corpuscular Hemoglobin 27.8, Mean Corpuscular Hemoglobin Concent 31.7L, Red Cell Distribution Width 16.6H, Platelet Count 287, Mean Platelet Volume 5.4L, Neutrophils (%) (Auto) , Lymphocytes (%) (Auto) , Monocytes (%) (Auto) , Eosinophils (%) (Auto) , Basophils (%) (Auto) , Differential Total Cells Counted 100, Neutrophils % ( Manual) 69, Lymphocytes % (Manual) 23, Monocytes % (Manual) 6, Eosinophils % ( Manual) 1, Basophils % (Manual) 1, Band Neutrophils 0, Platelet Estimate Adequate, Platelet Morphology Normal, Anisocytosis 1+, Sodium Level 142, Potassium Level 3.9, Chloride Level 105, Carbon Dioxide Level 27, Anion Gap 10, Blood Urea Nitrogen 13, Creatinine 0.8, Estimat Glomerular Filtration Rate > 60 , Glucose Level 169H, Calcium Level 8.5 Current Medications Medications (Trade) Dose Ordered Sig/Danni Route PRN Reason Start Time Stop Time Status Last Admin Dose Admin Amitriptyline HCl (Elavil) 25 mg BEDTIME ORAL 08/10/18 22:15 09/09/18 22:14 08/14/18 22:43 Amlodipine Besylate (Norvasc) 5 mg DAILY ORAL 08/15/18 09:00 09/10/18 08:59 08/15/18 09:39 Aspirin (ASA) 325 mg DAILY ORAL 08/12/18 09:00 09/11/18 08:59 08/15/18 09:38 Atorvastatin Calcium (Lipitor) 40 mg BEDTIME ORAL 08/11/18 21:00 09/10/18 20:59 08/14/18 21:35 Carisoprodol (Soma) 350 mg THREE TIMES A DAY ORAL 08/14/18 09:00 09/13/18 08:59 08/15/18 09:40 Chlorhexidine Gluconate (Margot-Hex 2%) 1 applic DAILY@2000 TOPIC 08/12/18 20:00 09/11/18 19:59 08/14/18 20:00 Clonazepam (KlonoPIN) 1 mg Q6HR ORAL 08/11/18 00:00 08/18/18 00:00 08/15/18 06:20 Diphenhydramine HCl (Benadryl) 25 mg Q6H PRN IVP Itching 08/11/18 12:30 09/10/18 12:29 08/15/18 05:43 Duloxetine HCl (Cymbalta) 30 mg DAILY ORAL 08/11/18 09:00 09/10/18 08:59 08/15/18 09:39 Folic Acid (Folate) 2 mg DAILY ORAL 08/13/18 09:00 09/12/18 08:59 08/15/18 09:40 Gabapentin (Neurontin) 300 mg THREE TIMES A DAY ORAL 08/11/18 09:00 09/10/18 08:59 08/15/18 09:38 Hydralazine HCl (Apresoline) 50 mg EVERY 8 HOURS ORAL 08/12/18 22:00 09/10/18 00:00 08/15/18 05:38 Hydromorphone HCl (Dilaudid) 2 mg Q3H PRN IVP Severe Pain (Pain Scale 7-10) 08/10/18 22:30 08/17/18 22:29 08/15/18 07:46 Hydromorphone HCl (Dilaudid) 4 mg Q4H PRN ORAL severe break through pain 08/11/18 17:12 08/18/18 17:11 Iron Sucrose 100 mg/Sodium Chloride 60 ml @ 240 mls/hr BEDTIME IVPB 08/12/18 21:00 08/16/18 21:14 08/14/18 21:32 Lisinopril (Prinivil) 20 mg DAILY ORAL 08/15/18 09:00 09/10/18 08:59 08/15/18 09:39 Lorazepam (Ativan 2mg/ml 1ml) 0.5 mg Q4H PRN IV For Anxiety 08/11/18 12:30 08/18/18 12:29 Methocarbamol (Robaxin) 750 mg QID ORAL 08/11/18 13:00 09/10/18 12:59 08/15/18 09:38 Metoprolol Tartrate (Lopressor) 50 mg Q12HR ORAL 08/11/18 21:00 09/10/18 20:59 08/15/18 09:39 Morphine Sulfate (MS Contin) 30 mg Q8HR ORAL 08/11/18 22:00 08/18/18 21:59 08/15/18 05:39 Pantoprazole (Protonix) 40 mg DAILY ORAL 08/11/18 09:00 09/10/18 08:59 08/15/18 09:40 Ropinirole HCl (Requip) 0.5 mg THREE TIMES A DAY ORAL 08/11/18 09:00 09/10/18 08:59 08/15/18 09:39 Adam Tom MD Aug 15, 2018 11:25
--- NOTE | 2018-08-15 11:52 | Nephrology Progress Note ---
Assessment/Plan Problem List: (1) HTN (hypertension) (2) Opioid dependence (3) Anemia (4) Hypokalemia Assessment HTN on variety of anti hypertensives HypoKalemia Low Iron Anemia Low folate multi drug allergies Plan BP meds adjustment and parameters states Iron Allergy k supplement given per consultants Subjective ROS Limited/Unobtainable: No Objective Objective Last 24 Hour Vital Signs Date Time Temp Pulse Resp B/P (MAP) Pulse Ox O2 Delivery O2 Flow Rate FiO2 08/15/18 09:39 127/73 08/15/18 09:39 103 127/73 08/15/18 09:39 103 127/73 08/15/18 09:00 Room Air 08/15/18 08:00 99.2 82 18 127/73 (91) 97 08/15/18 05:38 128/78 08/15/18 04:15 98.4 86 17 124/78 (93) 98 08/15/18 00:00 97.9 85 18 128/81 (97) 99 08/14/18 21:41 146/89 08/14/18 21:40 108 146/89 08/14/18 21:00 Room Air 08/14/18 20:00 98.8 107 17 146/89 (108) 99 08/14/18 16:00 98.3 104 17 127/76 (93) 96 08/14/18 14:10 135/80 08/14/18 12:00 98.2 99 17 135/80 (98) 98 Intake and Output 08/14/18 08/15/18 19:00 07:00 Intake Total 700 ml 720 ml Balance 700 ml 720 ml Intake Oral 700 ml 720 ml # Voids 3 3 # Bowel Movements 1 Laboratory Tests 08/15/18 05:35: White Blood Count 6.3, Red Blood Count 3.45L, Hemoglobin 9.6L, Hematocrit 30.2L , Mean Corpuscular Volume 88, Mean Corpuscular Hemoglobin 27.8, Mean Corpuscular Hemoglobin Concent 31.7L, Red Cell Distribution Width 16.6H, Platelet Count 287, Mean Platelet Volume 5.4L, Neutrophils (%) (Auto) , Lymphocytes (%) (Auto) , Monocytes (%) (Auto) , Eosinophils (%) (Auto) , Basophils (%) (Auto) , Differential Total Cells Counted 100, Neutrophils % ( Manual) 69, Lymphocytes % (Manual) 23, Monocytes % (Manual) 6, Eosinophils % ( Manual) 1, Basophils % (Manual) 1, Band Neutrophils 0, Platelet Estimate Adequate, Platelet Morphology Normal, Anisocytosis 1+, Sodium Level 142, Potassium Level 3.9, Chloride Level 105, Carbon Dioxide Level 27, Anion Gap 10, Blood Urea Nitrogen 13, Creatinine 0.8, Estimat Glomerular Filtration Rate > 60 , Glucose Level 169H, Calcium Level 8.5 Height (Feet): 5 Height (Inches): 3.00 Weight (Pounds): 150 General Appearance: no apparent distress Objective no change Nelson Hawkins MD Aug 15, 2018 11:52
--- NOTE | 2018-08-15 12:55 | General Progress Note ---
Assessment/Plan Problem List: (1) intractable back pain (2) Anemia ICD Codes: D64.9 - Anemia, unspecified SNOMED: 883254680 (3) Anxiety ICD Codes: F41.9 - Anxiety disorder, unspecified SNOMED: 51039578 (4) HTN (hypertension) ICD Codes: I10 - Essential (primary) hypertension SNOMED: 34568960 Status: stable, progressing Assessment/Plan pt diet pain control heme eval cbc bmp am dc plan Subjective Constitutional: Reports: weakness Allergies: Coded Allergies: MORPHINE (Verified Allergy, Mild, 04/14/18) per pt only slight itchness and resolved by benadryl. toleated dilaudid. CEFAZOLIN (Verified Allergy, Unknown, 04/15/18) IRON (Verified Allergy, Unknown, Rash, 08/09/17) had nausea, vomiting and rashes METHADONE (Verified Allergy, Unknown, 06/04/17) PENICILLINS (Verified Allergy, Unknown, 04/15/18) PREGABALIN (Verified Allergy, Unknown, 06/04/17) All Systems: reviewed and negative except above Subjective back pain 10/17 Objective Last 24 Hour Vital Signs Date Time Temp Pulse Resp B/P (MAP) Pulse Ox O2 Delivery O2 Flow Rate FiO2 08/15/18 09:39 127/73 08/15/18 09:39 103 127/73 08/15/18 09:39 103 127/73 08/15/18 09:00 Room Air 08/15/18 08:00 99.2 82 18 127/73 (91) 97 08/15/18 05:38 128/78 08/15/18 04:15 98.4 86 17 124/78 (93) 98 08/15/18 00:00 97.9 85 18 128/81 (97) 99 08/14/18 21:41 146/89 08/14/18 21:40 108 146/89 08/14/18 21:00 Room Air 08/14/18 20:00 98.8 107 17 146/89 (108) 99 08/14/18 16:00 98.3 104 17 127/76 (93) 96 08/14/18 14:10 135/80 Intake and Output 08/14/18 08/15/18 19:00 07:00 Intake Total 700 ml 720 ml Balance 700 ml 720 ml Intake Oral 700 ml 720 ml # Voids 3 3 # Bowel Movements 1 Laboratory Tests 08/15/18 05:35: White Blood Count 6.3, Red Blood Count 3.45L, Hemoglobin 9.6L, Hematocrit 30.2L , Mean Corpuscular Volume 88, Mean Corpuscular Hemoglobin 27.8, Mean Corpuscular Hemoglobin Concent 31.7L, Red Cell Distribution Width 16.6H, Platelet Count 287, Mean Platelet Volume 5.4L, Neutrophils (%) (Auto) , Lymphocytes (%) (Auto) , Monocytes (%) (Auto) , Eosinophils (%) (Auto) , Basophils (%) (Auto) , Differential Total Cells Counted 100, Neutrophils % ( Manual) 69, Lymphocytes % (Manual) 23, Monocytes % (Manual) 6, Eosinophils % ( Manual) 1, Basophils % (Manual) 1, Band Neutrophils 0, Platelet Estimate Adequate, Platelet Morphology Normal, Anisocytosis 1+, Sodium Level 142, Potassium Level 3.9, Chloride Level 105, Carbon Dioxide Level 27, Anion Gap 10, Blood Urea Nitrogen 13, Creatinine 0.8, Estimat Glomerular Filtration Rate > 60 , Glucose Level 169H, Calcium Level 8.5 Height (Feet): 5 Height (Inches): 3.00 Weight (Pounds): 150 General Appearance: lethargic EENT: normal ENT inspection Neck: normal alignment Cardiovascular: normal peripheral pulses, normal rate, regular rhythm Respiratory/Chest: chest wall non-tender, lungs clear, normal breath sounds Abdomen: normal bowel sounds, non tender, soft Extremities: normal inspection Edema: no edema noted Arm (L), no edema noted Arm (R), no edema noted Leg (L), no edema noted Leg (R), no edema noted Pedal (L), no edema noted Pedal (R), no edema noted Generalized Neurologic: responsive, motor weakness Skin: normal pigmentation, warm/dry Ernesto Magallon DO Aug 15, 2018 12:55
--- NOTE | 2018-08-15 13:43 | NUR ---
CHARGE NURSE NOTES: Left message to dr Crews for discharge clearance. awaits callback. Called Dr Hogan & obtained clearance.
[2018-08-15 14:00] VITALS: BP 132/76
--- NOTE | 2018-08-15 15:21 | NUR ---
NURSE NOTES: Paged nephro for D/C clearance, awaiting response.
[2018-08-15 16:00] VITALS: BP 128/77
--- NOTE | 2018-08-15 16:13 | NUR ---
DISCHARGE PLAN DISCHARGE ORDER NOTED SPOKE WITH PATIENT ABOUT DISCHARGING HOME PATIENT DOESN'T FEEL SHE'S READY FOR DISCHARGE AND WOULD LIKE TO APPEAL HER DISCHARGE PATIENT CALLED [facility] AND LEFT HER INFORMATION
--- NOTE | 2018-08-15 16:30 | Progress Note ---
DATE: 08/15/2018 NOTE: "POOR AUDIO QUALITY" SUBJECTIVE: This is a 53-year-old female patient. She has intractable back pain. She continues to have increased depression and anxiety, worsened by stress of her medical illness. MENTAL STATUS EXAMINATION: A 53-year-old female. Appearance is disheveled. Attitude, irritable and agitated. Affect, guarded and restricted. Intellect poor. Mood, depressed and anxious. Motor activity, psychomotor agitation. Attention span is poor. Orientation x2. Speech is pressured. Thought process is disorganized and illogical. Insight and judgment is poor. DIAGNOSIS: Major depressive disorder, mild, recurrent, without psychotic features. PLAN: Treat her with combination of Neurontin 300 three times a day and Cymbalta 30 daily. Provided with 20 minutes of cognitive behavioral therapy to help her identify automatic negative thoughts and help her to convert those negative thoughts to more positive thoughts to reduce depression, anxiety, and suicidality. Chart reviewed. Discussed with staff. Amanda Crews M.D. : YEFRI JOB#: [id number] CC:
--- NOTE | 2018-08-15 17:15 | NUR ---
NURSE NOTES: Patient transferred to med surg as ordered. Patient taken in hospital bed without incident. Patient is stable, denies pian or SOB. All belongings accounted for with patient and 2 RNs. Skin is clean, dry, and intact. Handed patient off to Barbara RN.
--- NOTE | 2018-08-15 18:34 | General Progress Note ---
Assessment/Plan Assessment/Plan # Anemia of iron deficiency rule out gi bleed, ferritin is low, toelrated iv iron well thus far. without reaction --> Anemia workup has been ordered, rule out gi bleed, cea is 2.8 --> No evidence of hemolysis is noted, peripheral smear has been reviewed. --> Hgb goal >7. Transfuse prn. --> has a allergy to iron therefore may get iv iron but would start slow --> Medications have been reviewed --> evaluate with Gi team prn ==> hgb 11-->9.6 --> transfuse if hgb is < 7 (will trend CBC daily) # ANemia due to folic acid def --> ON folic acid 2mg po daily --> recommend as outpatient to eat leafy vegetables # HTn on variety of anti hypertensives --> per cards/renal # HypoKalemia # Benzodiazepine dependence # Chronic back pain # Anxiety and appears to be chronic The timing of this note does not necessarily reflect the time of the patient was seen. Greatly appreciate consultation! Subjective HEENT: Denies: no symptoms, eye pain, blurred vision, tearing, double vision, ear pain, ear discharge, nose pain, nose congestion, throat pain, throat swelling, mouth pain, mouth swelling, other Gastrointestinal/Abdominal: Denies: no symptoms, abdomen distended, abdominal pain, black stools, tarry stools, blood in stool, constipated, diarrhea, difficulty swallowing, nausea, poor appetite, poor fluid intake, rectal bleeding , vomiting, other Genitourinary: Denies: no symptoms, burning, discharge, frequency, flank pain, hematuria, incontinence, pain, urgency, other Neurologic/Psychiatric: Denies: no symptoms, anxiety, depressed, emotional problems, headache, numbness, paresthesia, pre-existing deficit, seizure, tingling, tremors, weakness, other Endocrine: Denies: no symptoms, excessive sweating, flushing, intolerance to cold, intolerance to heat, increased hunger, increased thirst, increased urine, unexplained weight gain, unexplained weight loss, other Hematologic/Lymphatic: Denies: no symptoms, anemia, easy bleeding, easy bruising, other Allergies: Coded Allergies: MORPHINE (Verified Allergy, Mild, 04/14/18) per pt only slight itchness and resolved by benadryl. toleated dilaudid. CEFAZOLIN (Verified Allergy, Unknown, 04/15/18) IRON (Verified Allergy, Unknown, Rash, 08/09/17) had nausea, vomiting and rashes METHADONE (Verified Allergy, Unknown, 06/04/17) PENICILLINS (Verified Allergy, Unknown, 04/15/18) PREGABALIN (Verified Allergy, Unknown, 06/04/17) Subjective 08/14: hgb is improved, has received iv iron and tolerated treatemnt well 08/15: hgb is 9.6, no bleeding, clearance for dc today Objective Last 24 Hour Vital Signs Date Time Temp Pulse Resp B/P (MAP) Pulse Ox O2 Delivery O2 Flow Rate FiO2 08/15/18 16:00 99.7 90 18 128/77 (94) 97 08/15/18 14:17 132/76 08/15/18 14:00 99.3 97 16 132/76 (94) 97 08/15/18 09:39 127/73 08/15/18 09:39 103 127/73 08/15/18 09:39 103 127/73 08/15/18 09:00 Room Air 08/15/18 08:00 99.2 82 18 127/73 (91) 97 08/15/18 05:38 128/78 08/15/18 04:15 98.4 86 17 124/78 (93) 98 08/15/18 00:00 97.9 85 18 128/81 (97) 99 08/14/18 21:41 146/89 08/14/18 21:40 108 146/89 08/14/18 21:00 Room Air 08/14/18 20:00 98.8 107 17 146/89 (108) 99 Intake and Output 08/14/18 08/15/18 18:59 06:59 Intake Total 700 ml 720 ml Balance 700 ml 720 ml Intake Oral 700 ml 720 ml # Voids 3 3 # Bowel Movements 1 Laboratory Tests 08/15/18 05:35: White Blood Count 6.3, Red Blood Count 3.45L, Hemoglobin 9.6L, Hematocrit 30.2L , Mean Corpuscular Volume 88, Mean Corpuscular Hemoglobin 27.8, Mean Corpuscular Hemoglobin Concent 31.7L, Red Cell Distribution Width 16.6H, Platelet Count 287, Mean Platelet Volume 5.4L, Neutrophils (%) (Auto) , Lymphocytes (%) (Auto) , Monocytes (%) (Auto) , Eosinophils (%) (Auto) , Basophils (%) (Auto) , Differential Total Cells Counted 100, Neutrophils % ( Manual) 69, Lymphocytes % (Manual) 23, Monocytes % (Manual) 6, Eosinophils % ( Manual) 1, Basophils % (Manual) 1, Band Neutrophils 0, Platelet Estimate Adequate, Platelet Morphology Normal, Anisocytosis 1+, Sodium Level 142, Potassium Level 3.9, Chloride Level 105, Carbon Dioxide Level 27, Anion Gap 10, Blood Urea Nitrogen 13, Creatinine 0.8, Estimat Glomerular Filtration Rate > 60 , Glucose Level 169H, Calcium Level 8.5 Height (Feet): 5 Height (Inches): 3.00 Weight (Pounds): 150 Objective General Appearance: WD/WN Lines, tubes and drains: peripheral HEENT: normocephalic, anicteric Neck: non-tender, normal alignment Respiratory/Chest: chest wall non-tender, lungs clear Breasts: no masses Cardiovascular/Chest: normal peripheral pulses Abdomen: normal bowel sounds Genitourinary/Rectal: normal genital exam Extremities: normal range of motion Aroldo Odom MD Aug 15, 2018 18:34
--- NOTE | 2018-08-15 19:42 | NUR ---
HAND-OFF: Report given to Lea ALONZO.
[2018-08-15 20:00] VITALS: BP 129/77
[2018-08-15] MEDS: Dyna-Hex 2% Top Sol 2oz TOPIC SCH (20:58)
[2018-08-15] MEDS: Atorvastatin 20mg tab ORAL SCH (21:01)
[2018-08-15] MEDS: Iron Sucrose 100 MG in NS 55 ML IVPB SCH (22:34)
[2018-08-16] VITALS: BP 120/79
[2018-08-16 04:00] VITALS: BP_SYST 116; BP_SYST 120; BP_DIAS 73; BP_DIAS 79
[2018-08-16] MEDS: HydrALAZINE 50mg tab ORAL SCH ×3 (06:00→22:00)
[2018-08-16] MEDS: DiphenhydrAMINE 50mg/ml Inj IVP PRN ×3 (06:15→20:28)
[2018-08-16] MEDS: MS Contin 15mg tab ORAL SCH ×3 (06:16→22:00)
[2018-08-16 07:39] LABS: BASOPHILS % (AUTO) 1.2 % (0.0-2.0); EOSINOPHILS % (AUTO) 2.5 % (0.0-3.0); HEMATOCRIT 29.9 % (37.0-47.0); HEMOGLOBIN 9.5 G/DL (12.0-16.0); LYMPHOCYTES % (AUTO) 28.9 % (20.0-45.0); MEAN CORPUSCULAR VOLUME 87 FL (80-99); MONOCYTES % (AUTO) 6.4 % (1.0-10.0); PLATELET COUNT 306 K/UL (150-450); RED BLOOD COUNT 3.42 M/UL (4.20-5.40); RED CELL DISTRIBUTION WIDTH 16.5 % (11.6-14.8); WHITE BLOOD COUNT 5.8 K/UL (4.8-10.8)
[2018-08-16 07:50] LABS: ANION GAP 7 mmol/L (5-15); BLOOD UREA NITROGEN 10 mg/dL (7-18); CALCIUM 8.9 MG/DL (8.5-10.1); CARBON DIOXIDE 30 MMOL/L (21-32); CHLORIDE 106 MMOL/L (98-107); CREATININE 0.7 MG/DL (0.55-1.30); POTASSIUM 4.3 MMOL/L (3.5-5.1); SODIUM 143 MMOL/L (136-145)
[2018-08-16 08:00] VITALS: BP 123/76
--- NOTE | 2018-08-16 08:03 | NUR ---
HAND-OFF: Report given to CHERI Church.
--- NOTE | 2018-08-16 08:51 | General Progress Note ---
Assessment/Plan Assessment/Plan (1) Lumbar DDD (2) Lumbar spondylosis (4) Lumbar Herniated disc (5) Lumbar Radiculopathy (6) H/O Lumbar fusion revision Patient to be continued on Dilaudid and Morphine ER. No Rx for home needed when cleared for discharge per washhouse worker due to patient having Morphine ER tabs and Dilaudid tabs at home prescribed by her Outpt Pain specialist Doctor ANNALISE GATES. D/w Dr. Singh and he concurred. Subjective Date patient seen: Aug 16, 2018 Time patient seen: 08:15 - am Allergies: Coded Allergies: MORPHINE (Verified Allergy, Mild, 04/14/18) per pt only slight itchness and resolved by benadryl. toleated dilaudid. CEFAZOLIN (Verified Allergy, Unknown, 04/15/18) IRON (Verified Allergy, Unknown, Rash, 08/09/17) had nausea, vomiting and rashes METHADONE (Verified Allergy, Unknown, 06/04/17) PENICILLINS (Verified Allergy, Unknown, 04/15/18) PREGABALIN (Verified Allergy, Unknown, 06/04/17) Subjective REVIEW OF SYSTEMS: Denies fever, chills, sweating, dizziness, drowsiness, sore throat, or change in her weight. No shortness of breath or chest pain. No nausea, vomiting, diarrhea, or blood in stool or urine. No bowel or bladder incontinence. No dysuria. She is complaining of low back pain. SUBJECTIVE: Patient is in bed and reports pain is tolerated on the Morphine ER 4 doses and Dilaudid IV 4 doses, has not taken Dilaudid tabs. At this time was advised to take the Dilaudid tabs to transition off the Dilaudid IV in anticipation for discharge. No Rx for home needed when cleared for discharge per washhouse worker due to patient having Morphine ER tabs and Dilaudid tabs at home prescribed by her Outpt Pain specialist Doctor ANNALISE GATES, and she was was advised to f/u with her spine surgeon when discharged. Pt seems to understand. Objective Last 24 Hour Vital Signs Date Time Temp Pulse Resp B/P (MAP) Pulse Ox O2 Delivery O2 Flow Rate FiO2 08/16/18 08:00 98.3 86 20 123/76 (92) 97 08/16/18 06:00 116/73 08/16/18 04:00 98.2 79 16 116/73 (87) 99 08/16/18 00:00 98.2 88 16 120/79 (93) 98 08/15/18 22:33 129/77 08/15/18 21:00 Room Air 08/15/18 20:59 103 129/77 08/15/18 20:00 98.6 103 17 129/77 (94) 100 08/15/18 16:00 99.7 90 18 128/77 (94) 97 08/15/18 14:17 132/76 08/15/18 14:00 99.3 97 16 132/76 (94) 97 08/15/18 09:39 127/73 08/15/18 09:39 103 127/73 08/15/18 09:39 103 127/73 08/15/18 09:00 Room Air Intake and Output 08/15/18 08/16/18 19:00 07:00 Intake Total 240 ml 60 ml Balance 240 ml 60 ml Intake Oral 240 ml IV Total 60 ml # Voids 2 2 Laboratory Tests 08/16/18 06:00: White Blood Count 5.8, Red Blood Count 3.42L, Hemoglobin 9.5L, Hematocrit 29.9L , Mean Corpuscular Volume 87, Mean Corpuscular Hemoglobin 27.7, Mean Corpuscular Hemoglobin Concent 31.7L, Red Cell Distribution Width 16.5H, Platelet Count 306, Mean Platelet Volume 5.4L, Neutrophils (%) (Auto) 61.0, Lymphocytes (%) (Auto) 28.9, Monocytes (%) (Auto) 6.4, Eosinophils (%) (Auto) 2.5, Basophils (%) (Auto) 1.2, Sodium Level 143, Potassium Level 4.3, Chloride Level 106, Carbon Dioxide Level 30, Anion Gap 7, Blood Urea Nitrogen 10, Creatinine 0.7, Estimat Glomerular Filtration Rate > 60, Glucose Level 81, Calcium Level 8.9 Height (Feet): 5 Height (Inches): 3.00 Weight (Pounds): 150 Objective GENERAL: Alert, awake, and oriented x3. NECK: Range of motion is full in all directions. LUNGS: Clear. HEART: Regular. ABDOMEN: Soft Nontender. EXTREMITIES: No cyanosis. No clubbing. No edema. Tal Hewitt Aug 16, 2018 08:51
[2018-08-16] MEDS: Lisinopril 20mg tab ORAL SCH (08:57)
[2018-08-16] MEDS: Metoprolol Tartrate 50mg tab ORAL SCH ×2 (08:57→20:27)
[2018-08-16] MEDS: Methocarbamol 750mg tab ORAL SCH ×4 (08:58→20:26)
[2018-08-16] MEDS: rOPINIRole 0.25mg tab ORAL SCH ×3 (08:58→17:05)
[2018-08-16] MEDS: DULoxetine 30mg cap ORAL SCH (09:04)
--- NOTE | 2018-08-16 09:54 | NUR ---
*-* CASE MANAGEMENT NOTES *-* PATIENT HAS APPEALED DISCHARGED RECEIVED A CALL FROM [facility] CASE # [id number] ALL CLINICALS HAVE BEEN FAXED TO: [phone]
--- NOTE | 2018-08-16 10:40 | NUR ---
NURSE NOTES: Received pt from CHERI TOTH at 0730. Pt is alert and orient x4. pt is in RA. No SOB or acute respiratory distress noted. pt has PICC RU Chest SL. Pt has back pain, ÁNGEL Parada is aware and visited pt. all needs attended, bed is locked and is in the lowest position. call light within easy reach. will continue to monitor.
[2018-08-16 12:00] VITALS: BP 121/78
--- NOTE | 2018-08-16 12:40 | Pulmonology Progress Note ---
Assessment/Plan Problems: (1) Intractable back pain (2) Benzodiazepine dependence (3) Chronic back pain (4) HTN (hypertension) (5) Anxiety (6) Opioid dependence Assessment/Plan refused to leave yesterday wants to go to [facility]. less pain more relaxed monitor BP check electrolytes Anxiolytics prn dvt prophylaxis. Subjective ROS Limited/Unobtainable: No Constitutional: Reports: no symptoms HEENT: Repors: no symptoms Respiratory: Reports: no symptoms Allergies: Coded Allergies: MORPHINE (Verified Allergy, Mild, 04/14/18) per pt only slight itchness and resolved by benadryl. toleated dilaudid. CEFAZOLIN (Verified Allergy, Unknown, 04/15/18) IRON (Verified Allergy, Unknown, Rash, 08/09/17) had nausea, vomiting and rashes METHADONE (Verified Allergy, Unknown, 06/04/17) PENICILLINS (Verified Allergy, Unknown, 04/15/18) PREGABALIN (Verified Allergy, Unknown, 06/04/17) Objective Last 24 Hour Vital Signs Date Time Temp Pulse Resp B/P (MAP) Pulse Ox O2 Delivery O2 Flow Rate FiO2 08/16/18 12:00 98.8 81 20 121/78 (92) 97 08/16/18 09:29 98.3 08/16/18 09:28 98.3 08/16/18 09:00 Room Air 08/16/18 08:57 123/76 08/16/18 08:57 86 123/76 08/16/18 08:57 86 123/76 08/16/18 08:00 98.3 86 20 123/76 (92) 97 08/16/18 06:00 116/73 08/16/18 04:00 98.2 79 16 116/73 (87) 99 08/16/18 00:00 98.2 88 16 120/79 (93) 98 08/15/18 22:33 129/77 08/15/18 21:00 Room Air 08/15/18 20:59 103 129/77 08/15/18 20:00 98.6 103 17 129/77 (94) 100 08/15/18 16:00 99.7 90 18 128/77 (94) 97 08/15/18 14:17 132/76 08/15/18 14:00 99.3 97 16 132/76 (94) 97 Intake and Output 08/15/18 08/16/18 19:00 07:00 Intake Total 240 ml 60 ml Balance 240 ml 60 ml Intake Oral 240 ml IV Total 60 ml # Voids 2 2 Objective General Appearance: WD/WN Lines, tubes and drains: peripheral HEENT: normocephalic, anicteric Neck: non-tender, normal alignment Respiratory/Chest: chest wall non-tender, lungs clear Breasts: no masses Cardiovascular/Chest: normal peripheral pulses Abdomen: normal bowel sounds Genitourinary/Rectal: normal genital Laboratory Tests 08/16/18 06:00: White Blood Count 5.8, Red Blood Count 3.42L, Hemoglobin 9.5L, Hematocrit 29.9L , Mean Corpuscular Volume 87, Mean Corpuscular Hemoglobin 27.7, Mean Corpuscular Hemoglobin Concent 31.7L, Red Cell Distribution Width 16.5H, Platelet Count 306, Mean Platelet Volume 5.4L, Neutrophils (%) (Auto) 61.0, Lymphocytes (%) (Auto) 28.9, Monocytes (%) (Auto) 6.4, Eosinophils (%) (Auto) 2.5, Basophils (%) (Auto) 1.2, Sodium Level 143, Potassium Level 4.3, Chloride Level 106, Carbon Dioxide Level 30, Anion Gap 7, Blood Urea Nitrogen 10, Creatinine 0.7, Estimat Glomerular Filtration Rate > 60, Glucose Level 81, Calcium Level 8.9 Current Medications Medications (Trade) Dose Ordered Sig/Danni Route PRN Reason Start Time Stop Time Status Last Admin Dose Admin Amitriptyline HCl (Elavil) 25 mg BEDTIME ORAL 08/10/18 22:15 09/09/18 22:14 08/15/18 21:18 Amlodipine Besylate (Norvasc) 5 mg DAILY ORAL 08/15/18 09:00 09/10/18 08:59 08/16/18 08:57 Aspirin (ASA) 325 mg DAILY ORAL 08/12/18 09:00 09/11/18 08:59 08/16/18 08:58 Atorvastatin Calcium (Lipitor) 40 mg BEDTIME ORAL 08/11/18 21:00 09/10/18 20:59 08/15/18 21:01 Carisoprodol (Soma) 350 mg THREE TIMES A DAY ORAL 08/14/18 09:00 09/13/18 08:59 08/16/18 12:14 Chlorhexidine Gluconate (Margot-Hex 2%) 1 applic DAILY@2000 TOPIC 08/12/18 20:00 09/11/18 19:59 08/15/18 20:58 Clonazepam (KlonoPIN) 1 mg Q6HR ORAL 08/11/18 00:00 08/18/18 00:00 08/16/18 12:15 Diphenhydramine HCl (Benadryl) 25 mg Q6H PRN IVP Itching 08/11/18 12:30 09/10/18 12:29 08/16/18 06:15 Duloxetine HCl (Cymbalta) 30 mg DAILY ORAL 08/11/18 09:00 09/10/18 08:59 08/16/18 09:04 Folic Acid (Folate) 2 mg DAILY ORAL 08/13/18 09:00 09/12/18 08:59 08/16/18 08:57 Gabapentin (Neurontin) 300 mg THREE TIMES A DAY ORAL 08/11/18 09:00 09/10/18 08:59 08/16/18 12:15 Hydralazine HCl (Apresoline) 50 mg EVERY 8 HOURS ORAL 08/12/18 22:00 09/10/18 00:00 08/15/18 22:33 Hydromorphone HCl (Dilaudid) 2 mg Q3H PRN IVP Severe Pain (Pain Scale 7-10) 08/10/18 22:30 08/17/18 22:29 08/16/18 12:11 Hydromorphone HCl (Dilaudid) 4 mg Q4H PRN ORAL severe break through pain 08/11/18 17:12 08/18/18 17:11 Iron Sucrose 100 mg/Sodium Chloride 60 ml @ 240 mls/hr BEDTIME IVPB 08/12/18 21:00 08/16/18 21:14 08/15/18 22:34 Lisinopril (Prinivil) 20 mg DAILY ORAL 08/15/18 09:00 09/10/18 08:59 08/16/18 08:57 Lorazepam (Ativan 2mg/ml 1ml) 0.5 mg Q4H PRN IV For Anxiety 08/11/18 12:30 08/18/18 12:29 Methocarbamol (Robaxin) 750 mg QID ORAL 08/11/18 13:00 09/10/18 12:59 08/16/18 12:14 Metoprolol Tartrate (Lopressor) 50 mg Q12HR ORAL 08/11/18 21:00 09/10/18 20:59 08/16/18 08:57 Morphine Sulfate (MS Contin) 30 mg Q8HR ORAL 08/11/18 22:00 08/18/18 21:59 08/16/18 06:16 Pantoprazole (Protonix) 40 mg DAILY ORAL 08/11/18 09:00 09/10/18 08:59 08/16/18 08:57 Ropinirole HCl (Requip) 0.5 mg THREE TIMES A DAY ORAL 08/11/18 09:00 09/10/18 08:59 08/16/18 12:15 Adam Tom MD Aug 16, 2018 12:40
--- NOTE | 2018-08-16 13:48 | General Progress Note ---
Assessment/Plan Problem List: (1) intractable back pain (2) Anemia ICD Codes: D64.9 - Anemia, unspecified SNOMED: 778031491 (3) Anxiety ICD Codes: F41.9 - Anxiety disorder, unspecified SNOMED: 45532089 (4) HTN (hypertension) ICD Codes: I10 - Essential (primary) hypertension SNOMED: 04043794 Status: unchanged Assessment/Plan pt diet pain control heme eval dc if clear Subjective Constitutional: Reports: weakness Allergies: Coded Allergies: MORPHINE (Verified Allergy, Mild, 04/14/18) per pt only slight itchness and resolved by benadryl. toleated dilaudid. CEFAZOLIN (Verified Allergy, Unknown, 04/15/18) IRON (Verified Allergy, Unknown, Rash, 08/09/17) had nausea, vomiting and rashes METHADONE (Verified Allergy, Unknown, 06/04/17) PENICILLINS (Verified Allergy, Unknown, 04/15/18) PREGABALIN (Verified Allergy, Unknown, 06/04/17) All Systems: reviewed and negative except above Subjective back pain 10/17 Objective Last 24 Hour Vital Signs Date Time Temp Pulse Resp B/P (MAP) Pulse Ox O2 Delivery O2 Flow Rate FiO2 08/16/18 12:41 98.8 08/16/18 12:41 98.8 08/16/18 12:00 98.8 81 20 121/78 (92) 97 08/16/18 09:00 Room Air 08/16/18 08:57 123/76 08/16/18 08:57 86 123/76 08/16/18 08:57 86 123/76 08/16/18 08:00 98.3 86 20 123/76 (92) 97 08/16/18 06:00 116/73 08/16/18 04:00 98.2 79 16 116/73 (87) 99 08/16/18 00:00 98.2 88 16 120/79 (93) 98 08/15/18 22:33 129/77 08/15/18 21:00 Room Air 08/15/18 20:59 103 129/77 08/15/18 20:00 98.6 103 17 129/77 (94) 100 08/15/18 16:00 99.7 90 18 128/77 (94) 97 08/15/18 14:17 132/76 08/15/18 14:00 99.3 97 16 132/76 (94) 97 Intake and Output 08/15/18 08/16/18 19:00 07:00 Intake Total 240 ml 60 ml Balance 240 ml 60 ml Intake Oral 240 ml IV Total 60 ml # Voids 2 2 Laboratory Tests 08/16/18 06:00: White Blood Count 5.8, Red Blood Count 3.42L, Hemoglobin 9.5L, Hematocrit 29.9L , Mean Corpuscular Volume 87, Mean Corpuscular Hemoglobin 27.7, Mean Corpuscular Hemoglobin Concent 31.7L, Red Cell Distribution Width 16.5H, Platelet Count 306, Mean Platelet Volume 5.4L, Neutrophils (%) (Auto) 61.0, Lymphocytes (%) (Auto) 28.9, Monocytes (%) (Auto) 6.4, Eosinophils (%) (Auto) 2.5, Basophils (%) (Auto) 1.2, Sodium Level 143, Potassium Level 4.3, Chloride Level 106, Carbon Dioxide Level 30, Anion Gap 7, Blood Urea Nitrogen 10, Creatinine 0.7, Estimat Glomerular Filtration Rate > 60, Glucose Level 81, Calcium Level 8.9 Height (Feet): 5 Height (Inches): 3.00 Weight (Pounds): 150 General Appearance: lethargic EENT: normal ENT inspection Neck: normal alignment Cardiovascular: normal peripheral pulses, normal rate, regular rhythm Respiratory/Chest: chest wall non-tender, lungs clear, normal breath sounds Abdomen: normal bowel sounds, non tender, soft Extremities: normal range of motion, non-tender, normal inspection Edema: no edema noted Arm (L), no edema noted Arm (R), no edema noted Leg (L), no edema noted Leg (R), no edema noted Pedal (L), no edema noted Pedal (R), no edema noted Generalized Neurologic: responsive, motor weakness Skin: normal pigmentation, warm/dry Ernesto Magallon DO Aug 16, 2018 13:48
--- NOTE | 2018-08-16 13:54 | Nephrology Progress Note ---
Assessment/Plan Problem List: (1) HTN (hypertension) (2) Opioid dependence (3) Anemia (4) Hypokalemia Assessment HTN on variety of anti hypertensives HypoKalemia Low Iron Anemia Low folate multi drug allergies Plan BP meds adjustment and parameters states Iron Allergy k supplement given per consultants Subjective ROS Limited/Unobtainable: No Objective Objective Last 24 Hour Vital Signs Date Time Temp Pulse Resp B/P (MAP) Pulse Ox O2 Delivery O2 Flow Rate FiO2 08/16/18 12:41 98.8 08/16/18 12:41 98.8 08/16/18 12:00 98.8 81 20 121/78 (92) 97 08/16/18 09:00 Room Air 08/16/18 08:57 123/76 08/16/18 08:57 86 123/76 08/16/18 08:57 86 123/76 08/16/18 08:00 98.3 86 20 123/76 (92) 97 08/16/18 06:00 116/73 08/16/18 04:00 98.2 79 16 116/73 (87) 99 08/16/18 00:00 98.2 88 16 120/79 (93) 98 08/15/18 22:33 129/77 08/15/18 21:00 Room Air 08/15/18 20:59 103 129/77 08/15/18 20:00 98.6 103 17 129/77 (94) 100 08/15/18 16:00 99.7 90 18 128/77 (94) 97 08/15/18 14:17 132/76 08/15/18 14:00 99.3 97 16 132/76 (94) 97 Intake and Output 08/15/18 08/16/18 19:00 07:00 Intake Total 240 ml 60 ml Balance 240 ml 60 ml Intake Oral 240 ml IV Total 60 ml # Voids 2 2 Laboratory Tests 08/16/18 06:00: White Blood Count 5.8, Red Blood Count 3.42L, Hemoglobin 9.5L, Hematocrit 29.9L , Mean Corpuscular Volume 87, Mean Corpuscular Hemoglobin 27.7, Mean Corpuscular Hemoglobin Concent 31.7L, Red Cell Distribution Width 16.5H, Platelet Count 306, Mean Platelet Volume 5.4L, Neutrophils (%) (Auto) 61.0, Lymphocytes (%) (Auto) 28.9, Monocytes (%) (Auto) 6.4, Eosinophils (%) (Auto) 2.5, Basophils (%) (Auto) 1.2, Sodium Level 143, Potassium Level 4.3, Chloride Level 106, Carbon Dioxide Level 30, Anion Gap 7, Blood Urea Nitrogen 10, Creatinine 0.7, Estimat Glomerular Filtration Rate > 60, Glucose Level 81, Calcium Level 8.9 Height (Feet): 5 Height (Inches): 3.00 Weight (Pounds): 150 General Appearance: no apparent distress Objective no change Nelson Hawkins MD Aug 16, 2018 13:54
--- NOTE | 2018-08-16 14:29 | NUR ---
RD ASSESSMENT & RECOMMENDATIONS SEE CARE ACTIVITY FOR COMPLETE ASSESSMENT DAILY ESTIMATED NEEDS: Needs based on cardiac / 56kg adj 25-30 kcals/kg 9739-2005 total kcals 1-1.2 g protein/kg 56-67 g total protein 25-30 mL/kg 6204-3713 total fluid mLs NUTRITION DIAGNOSIS: * Altered nutrition related lab values R/T hyperglycemia as evidenced by mildly elev BGs (133-169). CURRENT DIET: REGULAR PO DIET RECOMMENDATIONS: CCHO LOW + LOW NA ADDITIONAL RECOMMENDATIONS: * Rec SSI + accu checks * Standing weight as able . .
[2018-08-16 15:53] VITALS: BP 117/62
--- NOTE | 2018-08-16 19:35 | NUR ---
HAND-OFF: Report given to CHERI TOTH.
--- NOTE | 2018-08-16 19:54 | NUR ---
NURSE NOTES: Received report from CHERI Church. Patient A&Ox4, on room air. No signs of distress or labored breathing. Complains of pain. Portacath intact, patent with some resistance, and saline locked. Bed in lowest position with call light in reach. Will continue with plan of care.
[2018-08-16 20:00] VITALS: BP 116/83
[2018-08-16] MEDS: Dyna-Hex 2% Top Sol 2oz TOPIC SCH (20:24)
[2018-08-16] MEDS: Atorvastatin 20mg tab ORAL SCH (20:25)
--- NOTE | 2018-08-16 20:30 | Progress Note ---
DATE: 08/16/2018 SUBJECTIVE: This is a 53-year-old female patient with intractable back pain. She is confused, disorganized, mood labile, but she has high levels of anxiety, depression, mood lability. That is why, her attending physician has requested daily psychiatric consultation. MENTAL STATUS EXAMINATION: This is a 53-year-old female. Appearance is disheveled. Attitude, irritable and agitated. Affect, guarded and restricted. Intellect poor. Mood depressed and anxious. Motor activity, psychomotor agitation. Attention span is poor. Orientation x2. Speech is pressured. Thought process, disorganized and illogical. Insight and judgment is poor. DIAGNOSIS: Major depressive disorder, mild, recurrent without psychotic features. PLAN: Continue treatment with a combination of Cymbalta 30 mg daily and Neurontin did help with neuropathy as well as pain prophylaxis, anxiety, and depression. Twenty minutes of cognitive behavioral therapy provided to help her identify her automatic negative thoughts help her to convert those negative thoughts to more positive thoughts to reduce depression, anxiety, and mood lability. Chart reviewed. Discussed with staff. Seen and assessed in her room. Amanda Crews M.D. DR: JB JOB#: [id number] CC:
--- NOTE | 2018-08-16 20:53 | General Progress Note ---
Assessment/Plan Assessment/Plan # Anemia of iron deficiency rule out gi bleed, ferritin is low, toelrated iv iron well thus far. without reaction --> Anemia workup has been ordered, rule out gi bleed, cea is 2.8 --> No evidence of hemolysis is noted, peripheral smear has been reviewed. --> Hgb goal >7. Transfuse prn. --> has a allergy to iron therefore may get iv iron but would start slow --> Medications have been reviewed --> evaluate with Gi team prn ==> hgb 11-->9.6-->9.5 --> transfuse if hgb is < 7 (will trend CBC daily) # ANemia due to folic acid def --> ON folic acid 2mg po daily --> recommend as outpatient to eat leafy vegetables # HTn on variety of anti hypertensives --> per cards/renal # HypoKalemia # Benzodiazepine dependence # Chronic back pain # Anxiety and appears to be chronic The timing of this note does not necessarily reflect the time of the patient was seen. Greatly appreciate consultation! Subjective HEENT: Denies: no symptoms, eye pain, blurred vision, tearing, double vision, ear pain, ear discharge, nose pain, nose congestion, throat pain, throat swelling, mouth pain, mouth swelling, other Cardiovascular: Denies: no symptoms, chest pain, edema, irregular heart rate, lightheadedness, palpitations, syncope, other Respiratory: Denies: no symptoms, cough, orthopnea, shortness of breath, SOB with excertion, SOB at rest, sputum, stridor, wheezing, other Gastrointestinal/Abdominal: Denies: no symptoms, abdomen distended, abdominal pain, black stools, tarry stools, blood in stool, constipated, diarrhea, difficulty swallowing, nausea, poor appetite, poor fluid intake, rectal bleeding , vomiting, other Genitourinary: Denies: no symptoms, burning, discharge, frequency, flank pain, hematuria, incontinence, pain, urgency, other Neurologic/Psychiatric: Denies: no symptoms, anxiety, depressed, emotional problems, headache, numbness, paresthesia, pre-existing deficit, seizure, tingling, tremors, weakness, other Endocrine: Denies: no symptoms, excessive sweating, flushing, intolerance to cold, intolerance to heat, increased hunger, increased thirst, increased urine, unexplained weight gain, unexplained weight loss, other Hematologic/Lymphatic: Denies: no symptoms, anemia, easy bleeding, easy bruising, other Allergies: Coded Allergies: MORPHINE (Verified Allergy, Mild, 04/14/18) per pt only slight itchness and resolved by benadryl. toleated dilaudid. CEFAZOLIN (Verified Allergy, Unknown, 04/15/18) IRON (Verified Allergy, Unknown, Rash, 08/09/17) had nausea, vomiting and rashes METHADONE (Verified Allergy, Unknown, 06/04/17) PENICILLINS (Verified Allergy, Unknown, 04/15/18) PREGABALIN (Verified Allergy, Unknown, 06/04/17) Subjective 08/14: hgb is improved, has received iv iron and tolerated treatemnt well 08/15: hgb is 9.6, no bleeding, clearance for dc today 08/16: a+o x4, no fevers or chills noted, no bleeding Objective Last 24 Hour Vital Signs Date Time Temp Pulse Resp B/P (MAP) Pulse Ox O2 Delivery O2 Flow Rate FiO2 08/16/18 20:27 85 116/83 08/16/18 17:36 98.5 08/16/18 17:36 98.5 08/16/18 15:53 98.5 78 20 117/62 (80) 97 08/16/18 14:42 98.8 08/16/18 14:12 121/78 08/16/18 12:00 98.8 81 20 121/78 (92) 97 08/16/18 09:00 Room Air 08/16/18 08:57 123/76 08/16/18 08:57 86 123/76 08/16/18 08:57 86 123/76 08/16/18 08:00 98.3 86 20 123/76 (92) 97 08/16/18 06:00 116/73 08/16/18 04:00 98.2 79 16 116/73 (87) 99 08/16/18 00:00 98.2 88 16 120/79 (93) 98 08/15/18 22:33 129/77 08/15/18 21:00 Room Air 08/15/18 20:59 103 129/77 Intake and Output 08/15/18 08/16/18 19:00 07:00 Intake Total 240 ml 60 ml Balance 240 ml 60 ml Intake Oral 240 ml IV Total 60 ml # Voids 2 2 Laboratory Tests 08/16/18 06:00: White Blood Count 5.8, Red Blood Count 3.42L, Hemoglobin 9.5L, Hematocrit 29.9L , Mean Corpuscular Volume 87, Mean Corpuscular Hemoglobin 27.7, Mean Corpuscular Hemoglobin Concent 31.7L, Red Cell Distribution Width 16.5H, Platelet Count 306, Mean Platelet Volume 5.4L, Neutrophils (%) (Auto) 61.0, Lymphocytes (%) (Auto) 28.9, Monocytes (%) (Auto) 6.4, Eosinophils (%) (Auto) 2.5, Basophils (%) (Auto) 1.2, Sodium Level 143, Potassium Level 4.3, Chloride Level 106, Carbon Dioxide Level 30, Anion Gap 7, Blood Urea Nitrogen 10, Creatinine 0.7, Estimat Glomerular Filtration Rate > 60, Glucose Level 81, Calcium Level 8.9 Height (Feet): 5 Height (Inches): 3.00 Weight (Pounds): 150 Objective General Appearance: WD/WN Lines, tubes and drains: peripheral HEENT: normocephalic, anicteric Neck: non-tender, normal alignment Respiratory/Chest: chest wall non-tender, lungs clear Breasts: no masses Cardiovascular/Chest: normal peripheral pulses Abdomen: normal bowel sounds Genitourinary/Rectal: normal genital exam Extremities: normal range of motion Aroldo Odom MD Aug 16, 2018 20:53
[2018-08-16] MEDS: Iron Sucrose 100 MG in NS 55 ML IVPB SCH (21:10)
[2018-08-17] VITALS: BP 122/83
[2018-08-17 04:00] VITALS: BP 137/82
[2018-08-17] MEDS: HydrALAZINE 50mg tab ORAL SCH ×3 (06:31→20:54)
[2018-08-17] MEDS: MS Contin 15mg tab ORAL SCH ×3 (06:32→22:28)
--- NOTE | 2018-08-17 07:40 | NUR ---
HAND-OFF: Report given to CHERI Bess.
--- NOTE | 2018-08-17 07:51 | NUR ---
NURSE NOTES: Patient alert x4, on room air, no sign of distress and no sign of shortness of breath; no sign of chest pain; R-upper chest port cath- flushes; bed at lowest position, side rails up x2, bed at lowest position, breaks engaged; call light within reach; will keep monitoring.
[2018-08-17 08:00] VITALS: BP 122/73
[2018-08-17] MEDS: Metoprolol Tartrate 50mg tab ORAL SCH ×2 (08:32→20:51)
[2018-08-17] MEDS: Lisinopril 20mg tab ORAL SCH (08:32)
[2018-08-17] MEDS: DULoxetine 30mg cap ORAL SCH (08:33)
[2018-08-17] MEDS: Methocarbamol 750mg tab ORAL SCH ×4 (08:33→20:50)
--- NOTE | 2018-08-17 08:33 | General Progress Note ---
Assessment/Plan Problem List: (1) intractable back pain (2) Anemia ICD Codes: D64.9 - Anemia, unspecified SNOMED: 427352602 (3) Anxiety ICD Codes: F41.9 - Anxiety disorder, unspecified SNOMED: 71455031 (4) HTN (hypertension) ICD Codes: I10 - Essential (primary) hypertension SNOMED: 05449233 Status: stable, progressing Assessment/Plan pt diet pain control heme eval dc if clear Subjective Constitutional: Reports: weakness Allergies: Coded Allergies: MORPHINE (Verified Allergy, Mild, 04/14/18) per pt only slight itchness and resolved by benadryl. toleated dilaudid. CEFAZOLIN (Verified Allergy, Unknown, 04/15/18) IRON (Verified Allergy, Unknown, Rash, 08/09/17) had nausea, vomiting and rashes METHADONE (Verified Allergy, Unknown, 06/04/17) PENICILLINS (Verified Allergy, Unknown, 04/15/18) PREGABALIN (Verified Allergy, Unknown, 06/04/17) All Systems: reviewed and negative except above Subjective back pain 10/17 Objective Last 24 Hour Vital Signs Date Time Temp Pulse Resp B/P (MAP) Pulse Ox O2 Delivery O2 Flow Rate FiO2 08/17/18 08:00 98.3 98 20 122/73 (89) 99 08/17/18 06:31 137/82 08/17/18 04:00 98.1 90 18 137/82 (100) 98 08/17/18 00:00 98.0 82 18 122/83 (96) 98 08/16/18 22:00 116/83 08/16/18 21:00 Room Air 08/16/18 20:27 85 116/83 08/16/18 20:00 98.1 85 18 116/83 (94) 99 08/16/18 17:36 98.5 08/16/18 17:36 98.5 08/16/18 15:53 98.5 78 20 117/62 (80) 97 08/16/18 14:42 98.8 08/16/18 14:12 121/78 08/16/18 12:00 98.8 81 20 121/78 (92) 97 08/16/18 09:00 Room Air 08/16/18 08:57 123/76 08/16/18 08:57 86 123/76 08/16/18 08:57 86 123/76 Intake and Output 08/16/18 08/17/18 19:00 07:00 Intake Total 1080 ml Balance 1080 ml Intake Oral 1080 ml # Voids 5 3 Height (Feet): 5 Height (Inches): 3.00 Weight (Pounds): 150 General Appearance: lethargic EENT: normal ENT inspection Neck: normal alignment Cardiovascular: normal peripheral pulses, normal rate, regular rhythm Respiratory/Chest: chest wall non-tender, lungs clear, normal breath sounds Abdomen: normal bowel sounds, non tender, soft Extremities: normal inspection Edema: no edema noted Arm (L), no edema noted Arm (R), no edema noted Leg (L), no edema noted Leg (R), no edema noted Pedal (L), no edema noted Pedal (R), no edema noted Generalized Neurologic: responsive, motor weakness Skin: normal pigmentation, warm/dry Ernesto Magallon DO Aug 17, 2018 08:33
[2018-08-17] MEDS: DiphenhydrAMINE 50mg/ml Inj IVP PRN ×3 (08:34→22:28)
--- NOTE | 2018-08-17 08:54 | General Progress Note ---
Assessment/Plan Assessment/Plan (1) Lumbar DDD (2) Lumbar spondylosis (4) Lumbar Herniated disc (5) Lumbar Radiculopathy (6) H/O Lumbar fusion revision Patient to be continued on Dilaudid and Morphine ER. D/w Dr. Singh and he concurred. Subjective Date patient seen: Aug 17, 2018 Time patient seen: 08:00 - am Allergies: Coded Allergies: MORPHINE (Verified Allergy, Mild, 04/14/18) per pt only slight itchness and resolved by benadryl. toleated dilaudid. CEFAZOLIN (Verified Allergy, Unknown, 04/15/18) IRON (Verified Allergy, Unknown, Rash, 08/09/17) had nausea, vomiting and rashes METHADONE (Verified Allergy, Unknown, 06/04/17) PENICILLINS (Verified Allergy, Unknown, 04/15/18) PREGABALIN (Verified Allergy, Unknown, 06/04/17) Subjective REVIEW OF SYSTEMS: Denies fever, chills, sweating, dizziness, drowsiness, sore throat, or change in her weight. No shortness of breath or chest pain. No nausea, vomiting, diarrhea, or blood in stool or urine. No bowel or bladder incontinence. No dysuria. She is complaining of low back pain. SUBJECTIVE: Patient continues to have c/o pain which has been chronic. Her pain is unchanged and continues to take the Morphine Er and Dilaudid. Objective Last 24 Hour Vital Signs Date Time Temp Pulse Resp B/P (MAP) Pulse Ox O2 Delivery O2 Flow Rate FiO2 08/17/18 08:33 98 122/73 08/17/18 08:32 122/73 08/17/18 08:32 98 122/73 08/17/18 08:00 98.3 98 20 122/73 (89) 99 08/17/18 06:31 137/82 08/17/18 04:00 98.1 90 18 137/82 (100) 98 08/17/18 00:00 98.0 82 18 122/83 (96) 98 08/16/18 22:00 116/83 08/16/18 21:00 Room Air 08/16/18 20:27 85 116/83 08/16/18 20:00 98.1 85 18 116/83 (94) 99 08/16/18 17:36 98.5 08/16/18 17:36 98.5 08/16/18 15:53 98.5 78 20 117/62 (80) 97 08/16/18 14:42 98.8 08/16/18 14:12 121/78 08/16/18 12:00 98.8 81 20 121/78 (92) 97 08/16/18 09:00 Room Air 08/16/18 08:57 123/76 08/16/18 08:57 86 123/76 08/16/18 08:57 86 123/76 Intake and Output 08/16/18 08/17/18 19:00 07:00 Intake Total 1080 ml Balance 1080 ml Intake Oral 1080 ml # Voids 5 3 Height (Feet): 5 Height (Inches): 3.00 Weight (Pounds): 150 Objective GENERAL: Alert, awake, and oriented x3. NECK: Range of motion is full in all directions. LUNGS: Clear. HEART: Regular. ABDOMEN: Soft Nontender. EXTREMITIES: No cyanosis. No clubbing. No edema. Tal Hewitt Aug 17, 2018 08:54
[2018-08-17] MEDS: rOPINIRole 0.25mg tab ORAL SCH ×3 (08:59→17:21)
[2018-08-17] MEDS ORDERED: HYDROmorphone 2mg tab ORAL PRN (09:12)
--- NOTE | 2018-08-17 09:37 | NUR ---
DISCHARGE PLAN PATIENT APPEALED HER DISCHARGE WE ARE WAITING FOR [facility] TO MAKE A DECISION ABOUT THE DISCHARGE YESENIA CASE # [id number]
[2018-08-17 12:00] VITALS: BP 135/78
--- NOTE | 2018-08-17 12:36 | Pulmonology Progress Note ---
Assessment/Plan Problems: (1) Intractable back pain (2) Benzodiazepine dependence (3) Chronic back pain (4) HTN (hypertension) (5) Anxiety (6) Opioid dependence Assessment/Plan wants her dilaudid every 2 hours. wants to go to [facility] rehab. less pain more relaxed monitor BP check electrolytes Anxiolytics prn dvt prophylaxis. Subjective ROS Limited/Unobtainable: No Constitutional: Reports: no symptoms HEENT: Repors: no symptoms Respiratory: Reports: no symptoms Allergies: Coded Allergies: MORPHINE (Verified Allergy, Mild, 04/14/18) per pt only slight itchness and resolved by benadryl. toleated dilaudid. CEFAZOLIN (Verified Allergy, Unknown, 04/15/18) IRON (Verified Allergy, Unknown, Rash, 08/09/17) had nausea, vomiting and rashes METHADONE (Verified Allergy, Unknown, 06/04/17) PENICILLINS (Verified Allergy, Unknown, 04/15/18) PREGABALIN (Verified Allergy, Unknown, 06/04/17) Objective Last 24 Hour Vital Signs Date Time Temp Pulse Resp B/P (MAP) Pulse Ox O2 Delivery O2 Flow Rate FiO2 08/17/18 09:03 98.3 08/17/18 09:03 98.3 08/17/18 09:00 Room Air 08/17/18 08:33 98 122/73 08/17/18 08:32 122/73 08/17/18 08:32 98 122/73 08/17/18 08:00 98.3 98 20 122/73 (89) 99 08/17/18 06:31 137/82 08/17/18 04:00 98.1 90 18 137/82 (100) 98 08/17/18 00:00 98.0 82 18 122/83 (96) 98 08/16/18 22:00 116/83 08/16/18 21:00 Room Air 08/16/18 20:27 85 116/83 08/16/18 20:00 98.1 85 18 116/83 (94) 99 08/16/18 17:36 98.5 08/16/18 15:53 98.5 78 20 117/62 (80) 97 08/16/18 14:42 98.8 08/16/18 14:12 121/78 Intake and Output 4/9/19 4/10/19 19:00 07:00 Intake Total 1080 ml Balance 1080 ml Intake Oral 1080 ml # Voids 5 3 Objective General Appearance: WD/WN Lines, tubes and drains: peripheral HEENT: normocephalic, anicteric Neck: non-tender, normal alignment Respiratory/Chest: chest wall non-tender, lungs clear Breasts: no masses Cardiovascular/Chest: normal peripheral pulses Abdomen: normal bowel sounds Genitourinary/Rectal: normal genital Microbiology Date/Time Source Procedure Growth Status 08/15/18 18:00 Rectum VRE Culture - Final Enterococcus Faecalis - Vre Complete Current Medications Medications (Trade) Dose Ordered Sig/Danni Route PRN Reason Start Time Stop Time Status Last Admin Dose Admin Amitriptyline HCl (Elavil) 25 mg BEDTIME ORAL 08/10/18 22:15 09/09/18 22:14 08/16/18 20:25 Amlodipine Besylate (Norvasc) 5 mg DAILY ORAL 08/15/18 09:00 09/10/18 08:59 08/17/18 08:33 Aspirin (ASA) 325 mg DAILY ORAL 08/12/18 09:00 09/11/18 08:59 08/17/18 08:33 Atorvastatin Calcium (Lipitor) 40 mg BEDTIME ORAL 08/11/18 21:00 09/10/18 20:59 08/16/18 20:25 Carisoprodol (Soma) 350 mg THREE TIMES A DAY ORAL 08/14/18 09:00 09/13/18 08:59 08/17/18 08:33 Chlorhexidine Gluconate (Margot-Hex 2%) 1 applic DAILY@1999 TOPIC 08/12/18 20:00 09/11/18 19:59 08/16/18 20:24 Clonazepam (KlonoPIN) 1 mg Q6HR ORAL 08/11/18 00:00 08/18/18 00:00 08/17/18 06:31 Diphenhydramine HCl (Benadryl) 25 mg Q6H PRN IVP Itching 08/11/18 12:30 09/10/18 12:29 08/17/18 08:34 Duloxetine HCl (Cymbalta) 30 mg DAILY ORAL 08/11/18 09:00 09/10/18 08:59 08/17/18 08:33 Folic Acid (Folate) 2 mg DAILY ORAL 08/13/18 09:00 09/12/18 08:59 08/17/18 08:33 Gabapentin (Neurontin) 300 mg THREE TIMES A DAY ORAL 08/11/18 09:00 09/10/18 08:59 08/17/18 08:33 Hydralazine HCl (Apresoline) 50 mg EVERY 8 HOURS ORAL 08/12/18 22:00 09/10/18 00:00 08/17/18 06:31 Hydromorphone HCl (Dilaudid) 2 mg Q3H PRN IVP Severe Pain (Pain Scale 7-10) 08/17/18 10:30 08/24/18 10:29 08/17/18 09:41 Hydromorphone HCl (Dilaudid) 4 mg Q4H PRN ORAL severe break through pain 08/17/18 09:12 08/24/18 09:11 Lisinopril (Prinivil) 20 mg DAILY ORAL 08/15/18 09:00 09/10/18 08:59 08/17/18 08:32 Lorazepam (Ativan 2mg/ml 1ml) 0.5 mg Q4H PRN IV For Anxiety 08/11/18 12:30 08/18/18 12:29 Methocarbamol (Robaxin) 750 mg QID ORAL 08/11/18 13:00 09/10/18 12:59 08/17/18 08:33 Metoprolol Tartrate (Lopressor) 50 mg Q12HR ORAL 08/11/18 21:00 09/10/18 20:59 08/17/18 08:32 Morphine Sulfate (MS Contin) 30 mg Q8HR ORAL 08/17/18 14:00 08/24/18 13:59 Pantoprazole (Protonix) 40 mg DAILY ORAL 08/11/18 09:00 09/10/18 08:59 08/17/18 08:33 Ropinirole HCl (Requip) 0.5 mg THREE TIMES A DAY ORAL 08/11/18 09:00 09/10/18 08:59 08/17/18 08:59 Adam Tom MD Aug 17, 2018 12:36
[2018-08-17 16:00] VITALS: BP 120/80
--- NOTE | 2018-08-17 16:30 | Progress Note ---
DATE: 08/17/2018 SUBJECTIVE: This is a 53-year-old patient with intractable back that is causing a high level of anxiety, depression, but this patient overall has feelings of hopelessness, helplessness, low energy, poor appetite, and loss of interest in activity. That is why, her attending has requested daily psychiatric consultation. MENTAL STATUS EXAMINATION: This is a 53-year-old female. Appearance is disheveled. Attitude, irritable and agitated. Affect, guarded and restricted. Intellect poor. Mood depressed and anxious. Motor activity, psychomotor agitation. Attention span is poor. Orientation x2. Speech is pressured. Thought process, disorganized and illogical. Insight and judgment is poor. DIAGNOSIS: Major depressive disorder, mild, recurrent, without psychotic features. PLAN: Continue on Cymbalta 30 mg daily, Neurontin 300 mg 3 times a day. Provided her with 20 minutes of minutes of cognitive behavioral therapy to help her identify automatic negative thoughts help to convert negative thoughts to more positive thoughts to reduce depression, anxiety, and suicidality. Chart reviewed. Discussed with staff. Seen and assessed at bedside. 20 minutes of cognitive behavioral therapy to help her identify automatic negative thoughts help to convert those negative thoughts to more positive thoughts to reduce depression, anxiety, and help her to have more adaptive behavior pattern. 20 minutes of cognitive behavioral therapy provided to the patient. Amanda Crews M.D. DR: JB JOB#: [id number] CC:
--- NOTE | 2018-08-17 17:03 | NUR ---
NURSE NOTES: Patient is asking MS Contin and Dilaudid back to back, RN and Charge Nurse, Balbir, explained the effect of getting two opioids medication in short period of time. Patient insisted to ask HOSPITAL MANAGER Zedner, I communicated HOSPITAL MANAGER Zedner regarding the situations and waiting for order.
--- NOTE | 2018-08-17 17:06 | General Progress Note ---
Assessment/Plan Assessment/Plan # Anemia of iron deficiency rule out gi bleed, ferritin is low, toelrated iv iron well thus far. without reaction --> Anemia workup has been ordered, rule out gi bleed, cea is 2.8 --> No evidence of hemolysis is noted, peripheral smear has been reviewed. --> Hgb goal >7. Transfuse prn. --> Medications have been reviewed --> evaluate with Gi team prn ==> hgb 11-->9.6-->9.5 --> transfuse if hgb is < 7 (will trend CBC daily) --> TOLERATED IV iron well, continue total 5 days # ANemia due to folic acid def --> ON folic acid 2mg po daily --> recommend as outpatient to eat leafy vegetables # HTn on variety of anti hypertensives --> per cards/renal # HypoKalemia # Benzodiazepine dependence # Chronic back pain # Anxiety and appears to be chronic The timing of this note does not necessarily reflect the time of the patient was seen. Greatly appreciate consultation! Subjective Cardiovascular: Denies: no symptoms, chest pain, edema, irregular heart rate, lightheadedness, palpitations, syncope, other Respiratory: Denies: no symptoms, cough, orthopnea, shortness of breath, SOB with excertion, SOB at rest, sputum, stridor, wheezing, other Genitourinary: Denies: no symptoms, burning, discharge, frequency, flank pain, hematuria, incontinence, pain, urgency, other Neurologic/Psychiatric: Denies: no symptoms, anxiety, depressed, emotional problems, headache, numbness, paresthesia, pre-existing deficit, seizure, tingling, tremors, weakness, other Allergies: Coded Allergies: MORPHINE (Verified Allergy, Mild, 04/14/18) per pt only slight itchness and resolved by benadryl. toleated dilaudid. CEFAZOLIN (Verified Allergy, Unknown, 04/15/18) IRON (Verified Allergy, Unknown, Rash, 08/09/17) had nausea, vomiting and rashes METHADONE (Verified Allergy, Unknown, 06/04/17) PENICILLINS (Verified Allergy, Unknown, 04/15/18) PREGABALIN (Verified Allergy, Unknown, 06/04/17) Subjective 08/14: hgb is improved, has received iv iron and tolerated treatemnt well 08/15: hgb is 9.6, no bleeding, clearance for dc today 08/16: a+o x4, no fevers or chills noted, no bleeding 08/17: wants to go to rehab [facility], no fevers or chills Objective Last 24 Hour Vital Signs Date Time Temp Pulse Resp B/P (MAP) Pulse Ox O2 Delivery O2 Flow Rate FiO2 08/17/18 16:27 98.4 08/17/18 16:00 98.4 84 20 120/80 (93) 97 08/17/18 14:32 135/78 08/17/18 13:20 98.6 08/17/18 13:20 98.6 08/17/18 12:00 98.6 81 18 135/78 (97) 96 08/17/18 09:00 Room Air 08/17/18 08:33 98 122/73 08/17/18 08:32 122/73 08/17/18 08:32 98 122/73 08/17/18 08:00 98.3 98 20 122/73 (89) 99 08/17/18 06:31 137/82 08/17/18 04:00 98.1 90 18 137/82 (100) 98 08/17/18 00:00 98.0 82 18 122/83 (96) 98 08/16/18 22:00 116/83 08/16/18 21:00 Room Air 08/16/18 20:27 85 116/83 08/16/18 20:00 98.1 85 18 116/83 (94) 99 08/16/18 17:36 98.5 Intake and Output 08/16/18 08/17/18 19:00 07:00 Intake Total 1080 ml Balance 1080 ml Intake Oral 1080 ml # Voids 5 3 Height (Feet): 5 Height (Inches): 3.00 Weight (Pounds): 150 Objective General Appearance: WD/WN Lines, tubes and drains: peripheral HEENT: normocephalic, anicteric Neck: non-tender, normal alignment Respiratory/Chest: chest wall non-tender, lungs clear Breasts: no masses Cardiovascular/Chest: normal peripheral pulses Abdomen: normal bowel sounds Genitourinary/Rectal: normal genital exam Extremities: normal range of motion Aroldo Odom MD Aug 17, 2018 17:06
--- NOTE | 2018-08-17 17:17 | Nephrology Progress Note ---
Assessment/Plan Problem List: (1) HTN (hypertension) (2) Opioid dependence (3) Anemia (4) Hypokalemia Assessment HTN on variety of anti hypertensives HypoKalemia Low Iron Anemia Low folate multi drug allergies Plan BP meds adjustment and parameters states Iron Allergy k supplement given per consultants Subjective ROS Limited/Unobtainable: No Objective Objective Last 24 Hour Vital Signs Date Time Temp Pulse Resp B/P (MAP) Pulse Ox O2 Delivery O2 Flow Rate FiO2 08/17/18 16:27 98.4 08/17/18 16:00 98.4 84 20 120/80 (93) 97 08/17/18 14:32 135/78 08/17/18 13:20 98.6 08/17/18 13:20 98.6 08/17/18 12:00 98.6 81 18 135/78 (97) 96 08/17/18 09:00 Room Air 08/17/18 08:33 98 122/73 08/17/18 08:32 122/73 08/17/18 08:32 98 122/73 08/17/18 08:00 98.3 98 20 122/73 (89) 99 08/17/18 06:31 137/82 08/17/18 04:00 98.1 90 18 137/82 (100) 98 08/17/18 00:00 98.0 82 18 122/83 (96) 98 08/16/18 22:00 116/83 08/16/18 21:00 Room Air 08/16/18 20:27 85 116/83 08/16/18 20:00 98.1 85 18 116/83 (94) 99 08/16/18 17:36 98.5 Intake and Output 08/16/18 08/17/18 19:00 07:00 Intake Total 1080 ml Balance 1080 ml Intake Oral 1080 ml # Voids 5 3 Height (Feet): 5 Height (Inches): 3.00 Weight (Pounds): 150 General Appearance: no apparent distress Objective no change Nelson Hawkins MD Aug 17, 2018 17:17
--- NOTE | 2018-08-17 19:23 | NUR ---
HAND-OFF: Report given to CHERI Gambino. Addendum: 08/17/18 at 1927 by Maria Alejandra Doyle RN NURSE NOTES: Disregard the previous note, it's the wrong nurse name.
--- NOTE | 2018-08-17 19:27 | NUR ---
HAND-OFF: Report given to CHERI Singletary.
--- NOTE | 2018-08-17 19:27 | NUR ---
NURSE NOTES: Patient alert x4, on room air, no sign of distress and no sign of shortness of breath; no sign of chest pain; R-upper chest port cath-some resistance but flushes; bed at lowest position, side rails up x2, locked, call light within reach; will keep monitoring.
[2018-08-17 20:00] VITALS: BP 144/84
[2018-08-17] MEDS: Dyna-Hex 2% Top Sol 2oz TOPIC SCH (20:49)
[2018-08-17] MEDS: Atorvastatin 20mg tab ORAL SCH (20:50)
[2018-08-18] VITALS: BP 145/80
[2018-08-18 04:00] VITALS: BP 131/79
[2018-08-18] MEDS: MS Contin 15mg tab ORAL SCH ×3 (06:33→21:23)
[2018-08-18] MEDS: HydrALAZINE 50mg tab ORAL SCH ×3 (06:33→21:23)
--- NOTE | 2018-08-18 07:12 | NUR ---
NURSE NOTES: Pt is angry because she cannot receive dilaudid concurrently with MS contin. She wanted benadryl and was angry that I did not administer it with the other medications as "You should have known". It is a prn medication so I would not just bring it without her specifically asking for it. She is also upset because she wanted me to wake her up when pain medication "is due" I told her that is not how prn medication is administered. It needs to be requested and a pain assessment done at that time. I told her this before she went to sleep that I would not be waking her. She slept soundly through the night as she received Klonopin, previously soma, last night dilaudid and benadryl as well as a scheduled MS Contin, She continues complain of pain 9-02/16 after MS contin. I am wondering if she cheeked it and didnt take it thinking she would receive dilaudid. I think she wanted to take all of them together. I asked her if she did hold onto the medication and she said no. She said pills wont work for her pain. I told her I would get benadryl and she got angry and said to get the "f out of my room " and didnt want to see my face. I had received report that his has happened previously- her getting angry because we will not administer all the medications concurrently. I was concerned as she gets BP meds, and multiple other potentially altering medications. She asked for the nursing supervisor poultry processing. I explained to the bottle house quality control technician what occurred and was told to have Maria Elena talk to the patient. The same that was said to me was told to Maria Elena- that she wanted dilaudid now. She is pressing the call light incessantly and doesnt want to talk to me. I tried to get someone else to talk to her and she doesnt receive what she wants and kicks them out of the room.
[2018-08-18 08:00] VITALS: BP 130/80
--- NOTE | 2018-08-18 08:42 | NUR ---
HAND-OFF: Report given to CHERI Jenkins.
[2018-08-18] MEDS: DULoxetine 30mg cap ORAL SCH (08:56)
[2018-08-18] MEDS: Methocarbamol 750mg tab ORAL SCH ×4 (08:56→20:16)
[2018-08-18] MEDS: Lisinopril 20mg tab ORAL SCH (08:57)
[2018-08-18] MEDS: rOPINIRole 0.25mg tab ORAL SCH ×3 (08:57→17:00)
[2018-08-18] MEDS: Metoprolol Tartrate 50mg tab ORAL SCH ×2 (08:57→20:16)
[2018-08-18] MEDS: DiphenhydrAMINE 50mg/ml Inj IVP PRN ×3 (08:58→21:22)
--- NOTE | 2018-08-18 09:06 | General Progress Note ---
Assessment/Plan Assessment/Plan (1) Lumbar DDD (2) Lumbar spondylosis (4) Lumbar Herniated disc (5) Lumbar Radiculopathy (6) H/O Lumbar fusion revision Patient to be continued on Dilaudid and Morphine ER. D/w Dr. Singh and he concurred. Subjective Date patient seen: Aug 18, 2018 Time patient seen: 08:00 - am Allergies: Coded Allergies: MORPHINE (Verified Allergy, Mild, 04/14/18) per pt only slight itchness and resolved by benadryl. toleated dilaudid. CEFAZOLIN (Verified Allergy, Unknown, 04/15/18) IRON (Verified Allergy, Unknown, Rash, 08/09/17) had nausea, vomiting and rashes METHADONE (Verified Allergy, Unknown, 06/04/17) PENICILLINS (Verified Allergy, Unknown, 04/15/18) PREGABALIN (Verified Allergy, Unknown, 06/04/17) Subjective REVIEW OF SYSTEMS: Denies fever, chills, sweating, dizziness, drowsiness, sore throat, or change in her weight. No shortness of breath or chest pain. No nausea, vomiting, diarrhea, or blood in stool or urine. No bowel or bladder incontinence. No dysuria. She is complaining of low back pain. SUBJECTIVE: Patients pain has been unchanged continues to take the Morphine ER and Dilaudid. Has no new complaints at this time. Objective Last 24 Hour Vital Signs Date Time Temp Pulse Resp B/P (MAP) Pulse Ox O2 Delivery O2 Flow Rate FiO2 08/18/18 08:57 135/78 08/18/18 08:57 74 135/78 08/18/18 08:57 74 135/78 08/18/18 06:33 135/78 08/18/18 04:00 98.1 74 20 131/79 (96) 98 08/18/18 00:00 98.3 83 20 145/80 (101) 98 08/17/18 21:00 Room Air 08/17/18 20:54 144/84 08/17/18 20:51 85 144/84 08/17/18 20:00 98.1 85 18 144/84 (104) 98 08/17/18 17:51 98.4 08/17/18 17:51 98.4 08/17/18 16:27 98.4 08/17/18 16:00 98.4 84 20 120/80 (93) 97 08/17/18 14:32 135/78 08/17/18 12:00 98.6 81 18 135/78 (97) 96 Intake and Output 08/17/18 08/18/18 19:00 07:00 Intake Total 480 ml Balance 480 ml Intake Oral 480 ml # Voids 3 2 # Bowel Movements 1 Height (Feet): 5 Height (Inches): 3.00 Weight (Pounds): 150 Objective GENERAL: Alert, awake, and oriented x3. NECK: Range of motion is full in all directions. LUNGS: Clear. HEART: Regular. ABDOMEN: Soft Nontender. EXTREMITIES: No cyanosis. No clubbing. No edema. Tal Hewitt Aug 18, 2018 09:06
[2018-08-18 11:48] VITALS: BP 127/80
--- NOTE | 2018-08-18 13:28 | Pulmonology Progress Note ---
Assessment/Plan Problems: (1) Intractable back pain (2) Benzodiazepine dependence (3) Chronic back pain (4) HTN (hypertension) (5) Anxiety (6) Opioid dependence Assessment/Plan wants her dilaudid every 2 hours. wants to go to [facility] rehab. less pain more relaxed monitor BP check electrolytes Anxiolytics prn dvt prophylaxis. Subjective ROS Limited/Unobtainable: No Constitutional: Reports: no symptoms HEENT: Repors: no symptoms Respiratory: Reports: no symptoms Allergies: Coded Allergies: MORPHINE (Verified Allergy, Mild, 04/14/18) per pt only slight itchness and resolved by benadryl. toleated dilaudid. CEFAZOLIN (Verified Allergy, Unknown, 04/15/18) IRON (Verified Allergy, Unknown, Rash, 08/09/17) had nausea, vomiting and rashes METHADONE (Verified Allergy, Unknown, 06/04/17) PENICILLINS (Verified Allergy, Unknown, 04/15/18) PREGABALIN (Verified Allergy, Unknown, 06/04/17) Objective Last 24 Hour Vital Signs Date Time Temp Pulse Resp B/P (MAP) Pulse Ox O2 Delivery O2 Flow Rate FiO2 08/18/18 11:48 98.6 81 20 127/80 (96) 99 08/18/18 09:00 Room Air 08/18/18 08:57 135/78 08/18/18 08:57 74 135/78 08/18/18 08:57 74 135/78 08/18/18 08:00 98.3 76 19 130/80 (97) 99 08/18/18 06:33 135/78 08/18/18 04:00 98.1 74 20 131/79 (96) 98 08/18/18 00:00 98.3 83 20 145/80 (101) 98 08/17/18 21:00 Room Air 08/17/18 20:54 144/84 08/17/18 20:51 85 144/84 08/17/18 20:00 98.1 85 18 144/84 (104) 98 08/17/18 17:51 98.4 08/17/18 17:51 98.4 08/17/18 16:27 98.4 08/17/18 16:00 98.4 84 20 120/80 (93) 97 08/17/18 14:32 135/78 Intake and Output 08/17/18 08/18/18 19:00 07:00 Intake Total 480 ml Balance 480 ml Intake Oral 480 ml # Voids 3 2 # Bowel Movements 1 Objective General Appearance: WD/WN Lines, tubes and drains: peripheral HEENT: normocephalic, anicteric Neck: non-tender, normal alignment Respiratory/Chest: chest wall non-tender, lungs clear Breasts: no masses Cardiovascular/Chest: normal peripheral pulses Abdomen: normal bowel sounds Genitourinary/Rectal: normal genital Microbiology Date/Time Source Procedure Growth Status 08/15/18 18:00 Rectum VRE Culture - Final Enterococcus Faecalis - Vre Complete Current Medications Medications (Trade) Dose Ordered Sig/Danni Route PRN Reason Start Time Stop Time Status Last Admin Dose Admin Amitriptyline HCl (Elavil) 25 mg BEDTIME ORAL 08/10/18 22:15 09/09/18 22:14 08/17/18 20:50 Amlodipine Besylate (Norvasc) 5 mg DAILY ORAL 08/15/18 09:00 09/10/18 08:59 08/18/18 08:57 Aspirin (ASA) 325 mg DAILY ORAL 08/12/18 09:00 09/11/18 08:59 08/18/18 08:57 Atorvastatin Calcium (Lipitor) 40 mg BEDTIME ORAL 08/11/18 21:00 09/10/18 20:59 08/17/18 20:50 Carisoprodol (Soma) 350 mg THREE TIMES A DAY ORAL 08/14/18 09:00 09/13/18 08:59 08/18/18 12:05 Chlorhexidine Gluconate (Margot-Hex 2%) 1 applic DAILY@2000 TOPIC 08/12/18 20:00 09/11/18 19:59 08/17/18 20:49 Diphenhydramine HCl (Benadryl) 25 mg Q6H PRN IVP Itching 08/11/18 12:30 09/10/18 12:29 08/18/18 08:58 Duloxetine HCl (Cymbalta) 30 mg DAILY ORAL 08/11/18 09:00 09/10/18 08:59 08/18/18 08:56 Folic Acid (Folate) 2 mg DAILY ORAL 08/13/18 09:00 09/12/18 08:59 08/18/18 08:57 Gabapentin (Neurontin) 300 mg THREE TIMES A DAY ORAL 08/11/18 09:00 09/10/18 08:59 08/18/18 12:05 Hydralazine HCl (Apresoline) 50 mg EVERY 8 HOURS ORAL 08/12/18 22:00 09/10/18 00:00 08/18/18 06:33 Hydromorphone HCl (Dilaudid) 2 mg Q3H PRN IVP Severe Pain (Pain Scale 7-10) 08/17/18 10:30 08/24/18 10:29 08/18/18 12:05 Hydromorphone HCl (Dilaudid) 4 mg Q4H PRN ORAL severe break through pain 08/17/18 09:12 08/24/18 09:11 Lisinopril (Prinivil) 20 mg DAILY ORAL 08/15/18 09:00 09/10/18 08:59 08/18/18 08:57 Methocarbamol (Robaxin) 750 mg QID ORAL 08/11/18 13:00 09/10/18 12:59 08/18/18 12:05 Metoprolol Tartrate (Lopressor) 50 mg Q12HR ORAL 08/11/18 21:00 09/10/18 20:59 08/18/18 08:57 Morphine Sulfate (MS Contin) 30 mg Q8HR ORAL 08/17/18 14:00 08/24/18 13:59 08/18/18 06:33 Pantoprazole (Protonix) 40 mg DAILY ORAL 08/11/18 09:00 09/10/18 08:59 08/18/18 08:56 Ropinirole HCl (Requip) 0.5 mg THREE TIMES A DAY ORAL 08/11/18 09:00 09/10/18 08:59 08/18/18 12:05 Adam Tom MD Aug 18, 2018 13:28
[2018-08-18 16:00] VITALS: BP 134/83
--- NOTE | 2018-08-18 16:45 | Progress Note ---
DATE: 08/18/2018 SUBJECTIVE: This is a 53-year-old female patient. She is very confused, disorganized, depression, and anxiety due to chronic pain. No logical plan for own self-care. MENTAL STATUS EXAMINATION: This is a 53-year-old female. Appearance is disheveled. Attitude, irritable and agitated. Affect, guarded and restricted. Intellect poor. Mood depressed and anxious. Motor activity, psychomotor agitation. Attention span is poor. Orientation x2. Speech is low volume, slurred. Thought process, disorganized and illogical. Insight and judgment is poor. DIAGNOSIS: Major depressive disorder, mild, recurrent, rule out generalized anxiety disorder. PLAN: Continue treatment with Neurontin 300 mg 3 times a day, Cymbalta 30 mg daily. Provided with 20 minutes of cognitive behavioral therapy to identify automatic negative thoughts and help to convert those negative thoughts to more positive thinking to reduce depression, anxiety, mood lability to help her have more adaptive behavioral pattern. 20 minutes of cognitive behavioral therapy provided to help identify automatic negative thoughts and help to convert negative thoughts to more positive thoughts to reduce depression, anxiety, and mood lability. Chart reviewed. Discussed with staff. Seen and assessed in her room. Amanda Crews M.D. DR: JB JOB#: [id number] CC:
--- NOTE | 2018-08-18 17:02 | Nephrology Progress Note ---
Assessment/Plan Problem List: (1) HTN (hypertension) (2) Opioid dependence (3) Anemia (4) Hypokalemia Assessment HTN on variety of anti hypertensives HypoKalemia Low Iron Anemia Low folate multi drug allergies Plan BP meds adjustment and parameters states Iron Allergy k supplement given per consultants Subjective Constitutional: Reports: malaise Objective Objective Last 24 Hour Vital Signs Date Time Temp Pulse Resp B/P (MAP) Pulse Ox O2 Delivery O2 Flow Rate FiO2 08/18/18 16:00 98.3 88 20 134/83 (100) 98 08/18/18 14:09 127/80 08/18/18 11:48 98.6 81 20 127/80 (96) 99 08/18/18 09:00 Room Air 08/18/18 08:57 135/78 08/18/18 08:57 74 135/78 08/18/18 08:57 74 135/78 08/18/18 08:00 98.3 76 19 130/80 (97) 99 08/18/18 06:33 135/78 08/18/18 04:00 98.1 74 20 131/79 (96) 98 08/18/18 00:00 98.3 83 20 145/80 (101) 98 08/17/18 21:00 Room Air 08/17/18 20:54 144/84 08/17/18 20:51 85 144/84 08/17/18 20:00 98.1 85 18 144/84 (104) 98 08/17/18 17:51 98.4 08/17/18 17:51 98.4 Intake and Output 08/17/18 08/18/18 19:00 07:00 Intake Total 480 ml Balance 480 ml Intake Oral 480 ml # Voids 3 2 # Bowel Movements 1 Height (Feet): 5 Height (Inches): 3.00 Weight (Pounds): 150 General Appearance: no apparent distress Objective no change Nelson Hawkins MD Aug 18, 2018 17:02
--- NOTE | 2018-08-18 17:36 | General Progress Note ---
Assessment/Plan Assessment/Plan # Anemia of iron deficiency rule out gi bleed, ferritin is low, toelrated iv iron well thus far. without reaction --> Anemia workup has been ordered, rule out gi bleed, cea is 2.8 --> No evidence of hemolysis is noted, peripheral smear has been reviewed. --> Hgb goal >7. Transfuse prn. --> Medications have been reviewed --> evaluate with Gi team prn ==> hgb 11-->9.6-->9.5 --> transfuse if hgb is < 7 (will trend CBC daily) --> TOLERATED IV iron well, continue total 5 days # ANemia due to folic acid def --> ON folic acid 2mg po daily --> recommend as outpatient to eat leafy vegetables # HTn on variety of anti hypertensives --> per cards/renal # HypoKalemia # Benzodiazepine dependence # Chronic back pain # Anxiety and appears to be chronic The timing of this note does not necessarily reflect the time of the patient was seen. Greatly appreciate consultation! Subjective Constitutional: Denies: no symptoms, chills, diaphoresis, fever, malaise, weakness, other HEENT: Denies: no symptoms, eye pain, blurred vision, tearing, double vision, ear pain, ear discharge, nose pain, nose congestion, throat pain, throat swelling, mouth pain, mouth swelling, other Gastrointestinal/Abdominal: Denies: no symptoms, abdomen distended, abdominal pain, black stools, tarry stools, blood in stool, constipated, diarrhea, difficulty swallowing, nausea, poor appetite, poor fluid intake, rectal bleeding , vomiting, other Genitourinary: Denies: no symptoms, burning, discharge, frequency, flank pain, hematuria, incontinence, pain, urgency, other Neurologic/Psychiatric: Denies: no symptoms, anxiety, depressed, emotional problems, headache, numbness, paresthesia, pre-existing deficit, seizure, tingling, tremors, weakness, other Endocrine: Denies: no symptoms, excessive sweating, flushing, intolerance to cold, intolerance to heat, increased hunger, increased thirst, increased urine, unexplained weight gain, unexplained weight loss, other Allergies: Coded Allergies: MORPHINE (Verified Allergy, Mild, 04/14/18) per pt only slight itchness and resolved by benadryl. toleated dilaudid. CEFAZOLIN (Verified Allergy, Unknown, 04/15/18) IRON (Verified Allergy, Unknown, Rash, 08/09/17) had nausea, vomiting and rashes METHADONE (Verified Allergy, Unknown, 06/04/17) PENICILLINS (Verified Allergy, Unknown, 04/15/18) PREGABALIN (Verified Allergy, Unknown, 06/04/17) Subjective 08/14: hgb is improved, has received iv iron and tolerated treatemnt well 08/15: hgb is 9.6, no bleeding, clearance for dc today 08/16: a+o x4, no fevers or chills noted, no bleeding 08/17: wants to go to rehab [facility], no fevers or chills 08/18: labs pending again, no fevers, hgb 10 approx Objective Last 24 Hour Vital Signs Date Time Temp Pulse Resp B/P (MAP) Pulse Ox O2 Delivery O2 Flow Rate FiO2 08/18/18 16:00 98.3 88 20 134/83 (100) 98 08/18/18 14:09 127/80 08/18/18 11:48 98.6 81 20 127/80 (96) 99 08/18/18 09:00 Room Air 08/18/18 08:57 135/78 08/18/18 08:57 74 135/78 08/18/18 08:57 74 135/78 08/18/18 08:00 98.3 76 19 130/80 (97) 99 08/18/18 06:33 135/78 08/18/18 04:00 98.1 74 20 131/79 (96) 98 08/18/18 00:00 98.3 83 20 145/80 (101) 98 08/17/18 21:00 Room Air 08/17/18 20:54 144/84 08/17/18 20:51 85 144/84 08/17/18 20:00 98.1 85 18 144/84 (104) 98 08/17/18 17:51 98.4 08/17/18 17:51 98.4 Intake and Output 08/17/18 08/18/18 19:00 07:00 Intake Total 480 ml Balance 480 ml Intake Oral 480 ml # Voids 3 2 # Bowel Movements 1 Height (Feet): 5 Height (Inches): 3.00 Weight (Pounds): 150 Objective General Appearance: WD/WN Lines, tubes and drains: peripheral HEENT: normocephalic, anicteric Neck: non-tender, normal alignment Respiratory/Chest: chest wall non-tender, lungs clear Breasts: no masses Cardiovascular/Chest: normal peripheral pulses Abdomen: normal bowel sounds Genitourinary/Rectal: normal genital exam Extremities: normal range of motion Aroldo Odom MD Aug 18, 2018 17:36
[2018-08-18] MEDS ORDERED: NS 275ml ONE (19:27)
[2018-08-18] MEDS ORDERED: Tubing IV Secondary IV ONE (19:27)
--- NOTE | 2018-08-18 19:31 | NUR ---
HAND-OFF: Report given to Roxana ALONZO.
--- NOTE | 2018-08-18 19:50 | NUR ---
NURSE NOTES: PATIENT IN BED. ON RA, NO SOB, NO ACUTE DISTRESS. R UPPER CHEST PATENT WITH DRY DRESSING. BED IN LOWEST POSITION, LOCKED, ALARMS ON. CALL LIGHT IN REACH.
[2018-08-18 20:00] VITALS: BP 112/73
[2018-08-18] MEDS: Atorvastatin 20mg tab ORAL SCH (20:18)
[2018-08-18] MEDS: Dyna-Hex 2% Top Sol 2oz TOPIC SCH (20:18)
--- NOTE | 2018-08-18 21:00 | NUR ---
NURSE NOTES: NOTED LEAKING ON THE PORTACATH, REMOVED THE DRESSING TO ASSESS AND NOTED DISLOCATED PORTACATH. PT C/O PAIN ON THE SITE. REMOVED PORTACATH. LEFT MSG TO DR NICOLAS. WILL ATTEMPT TO INSERT PERIPHERAL IV.
--- NOTE | 2018-08-18 22:06 | General Progress Note ---
Assessment/Plan Problem List: (1) INTRACTABLE BACK LIN (2) Benzodiazepine dependence ICD Codes: F13.20 - Sedative, hypnotic or anxiolytic dependence, uncomplicated SNOMED: 420162812 (3) Chronic back pain ICD Codes: M54.9 - Dorsalgia, unspecified; G89.29 - Other chronic pain SNOMED: 598067534 (4) Anxiety ICD Codes: F41.9 - Anxiety disorder, unspecified SNOMED: 19076824 (5) HTN (hypertension) ICD Codes: I10 - Essential (primary) hypertension SNOMED: 17871353 (6) Intractable back pain ICD Codes: M54.9 - Dorsalgia, unspecified SNOMED: 065160308 Status: progressing Assessment/Plan back pain intractable afebrile vitals stable nac Subjective ROS Limited/Unobtainable: Yes Allergies: Coded Allergies: MORPHINE (Verified Allergy, Mild, 04/14/18) per pt only slight itchness and resolved by benadryl. toleated dilaudid. CEFAZOLIN (Verified Allergy, Unknown, 04/15/18) IRON (Verified Allergy, Unknown, Rash, 08/09/17) had nausea, vomiting and rashes METHADONE (Verified Allergy, Unknown, 06/04/17) PENICILLINS (Verified Allergy, Unknown, 04/15/18) PREGABALIN (Verified Allergy, Unknown, 06/04/17) Objective Last 24 Hour Vital Signs Date Time Temp Pulse Resp B/P (MAP) Pulse Ox O2 Delivery O2 Flow Rate FiO2 08/18/18 21:23 120/82 08/18/18 20:16 82 112/73 08/18/18 16:00 98.3 88 20 134/83 (100) 98 08/18/18 14:09 127/80 08/18/18 11:48 98.6 81 20 127/80 (96) 99 08/18/18 09:00 Room Air 08/18/18 08:57 135/78 08/18/18 08:57 74 135/78 08/18/18 08:57 74 135/78 08/18/18 08:00 98.3 76 19 130/80 (97) 99 08/18/18 06:33 135/78 08/18/18 04:00 98.1 74 20 131/79 (96) 98 08/18/18 00:00 98.3 83 20 145/80 (101) 98 Intake and Output 08/17/18 08/18/18 19:00 07:00 Intake Total 480 ml Balance 480 ml Intake Oral 480 ml # Voids 3 2 # Bowel Movements 1 Height (Feet): 5 Height (Inches): 3.00 Weight (Pounds): 150 Neck: supple Cardiovascular: normal rate Respiratory/Chest: lungs clear Abdomen: soft Erin Villanueva MD Aug 18, 2018 22:06
[2018-08-19] VITALS: BP 130/84
--- NOTE | 2018-08-19 01:30 | NUR ---
NURSE NOTES: Attempted to reinsert the portacath but was unable to. Pt c/o pain on the site. Inserted peripheral IV on R upper arm. Left msg to Dr Tom.
--- NOTE | 2018-08-19 02:36 | NUR ---
HAND-OFF: Report given to Yousuf ALONZO.
[2018-08-19] MEDS ORDERED: LORazepam Inj 2mg/ml 1ml IV PRN (02:45)
--- NOTE | 2018-08-19 03:00 | NUR ---
NURSE NOTES: Received report from CHERI Schmidt. Pt is resting in bed. In no acute distress. Bed in lowest position, call light within reach. Will continue plan of care.
[2018-08-19 04:00] VITALS: BP 137/88
[2018-08-19] MEDS: DiphenhydrAMINE 50mg/ml Inj IVP PRN (05:07)
[2018-08-19] MEDS: HydrALAZINE 50mg tab ORAL SCH (06:54)
[2018-08-19] MEDS: MS Contin 15mg tab ORAL SCH (06:56)
--- NOTE | 2018-08-19 07:15 | NUR ---
Received patient from Yousuf ALONZO, patient is resting comfortably in bed, bed locked and in lowest position, call light within reach, no distress noted , will continue to monitor with Jovana ALONZO.
--- NOTE | 2018-08-19 07:20 | NUR ---
HAND-OFF: Report given to CHERI Swain and CHERI Whaley.
--- NOTE | 2018-08-19 07:27 | NUR ---
NURSE NOTES: RN received pt alert in bed in stable condition eating breakfast. No acute distress or SOB. Bed in low, locked position, call light within reach. RN to continue plain of care: pain management and to f/u with case management for discharge.
[2018-08-19 08:00] VITALS: BP 113/76
--- NOTE | 2018-08-19 08:21 | NUR ---
DISCHARGE PLAN PATIENT LOST HER APPEAL AND HAS UNTIL NOON TODAY TO LEAVE PER [facility] CASE # [id number] Addendum: 08/19/18 at 0842 by DEXTER ARELLANO, VISUAL EDUCATOR VISUAL EDUCATOR TOYS INSPECTOR WENT TO BEDSIDE TO DISCUSS APPEAL WITH PATIENT INITIALLY SHE SAID NO ONE FROM [facility] CALLED HER YESTERDAY WHEN THIS TOYS INSPECTOR MENTIONED SHE HAD UNTIL 1200 NOON TODAY TO TO LEAVE THE HOSPITAL PATIENT THEN SAID [facility] TOLD HER SHE COULD STAY FOR 2 DAYS. TOYS INSPECTOR REITERATED THE DECISION OF [facility] TO PATIENT. SHE BECAME VERY UPSET AND SAID SHE WAS GOING TO CALL HER AND PLANS TO GO TO ANOTHER HOSPITAL
[2018-08-19] MEDS: DULoxetine 30mg cap ORAL SCH (08:58)
[2018-08-19] MEDS: rOPINIRole 0.25mg tab ORAL SCH (08:58)
[2018-08-19] MEDS: Methocarbamol 750mg tab ORAL SCH (08:58)
[2018-08-19] MEDS: Metoprolol Tartrate 50mg tab ORAL SCH (08:58)
[2018-08-19] MEDS: Lisinopril 20mg tab ORAL SCH (08:59)
--- NOTE | 2018-08-19 09:09 | General Progress Note ---
Assessment/Plan Assessment/Plan (1) Lumbar DDD (2) Lumbar spondylosis (4) Lumbar Herniated disc (5) Lumbar Radiculopathy (6) H/O Lumbar fusion revision Patient to be continued on Dilaudid and Morphine ER. D/w Dr. Singh and he concurred. Subjective Date patient seen: Aug 19, 2018 Time patient seen: 08:15 - am Allergies: Coded Allergies: MORPHINE (Verified Allergy, Mild, 04/14/18) per pt only slight itchness and resolved by benadryl. toleated dilaudid. CEFAZOLIN (Verified Allergy, Unknown, 04/15/18) IRON (Verified Allergy, Unknown, Rash, 08/09/17) had nausea, vomiting and rashes METHADONE (Verified Allergy, Unknown, 06/04/17) PENICILLINS (Verified Allergy, Unknown, 04/15/18) PREGABALIN (Verified Allergy, Unknown, 06/04/17) Subjective REVIEW OF SYSTEMS: Denies fever, chills, sweating, dizziness, drowsiness, sore throat, or change in her weight. No shortness of breath or chest pain. No nausea, vomiting, diarrhea, or blood in stool or urine. No bowel or bladder incontinence. No dysuria. She is complaining of low back pain. SUBJECTIVE: Patient is in bed continues to c/o pain which she is taking the Morphine ER as scheduled and 6 doses of the Dilaudid. Objective Last 24 Hour Vital Signs Date Time Temp Pulse Resp B/P (MAP) Pulse Ox O2 Delivery O2 Flow Rate FiO2 08/19/18 08:59 113/76 08/19/18 08:58 84 113/76 08/19/18 08:58 84 113/76 08/19/18 08:00 98.3 84 18 113/76 (88) 98 08/19/18 06:54 135/82 08/19/18 04:00 97.9 98 18 137/88 (104) 96 08/19/18 00:00 98.4 74 18 130/84 (99) 97 08/18/18 21:23 120/82 08/18/18 21:00 Room Air 08/18/18 20:16 82 112/73 08/18/18 20:00 98.1 82 18 112/73 (86) 97 08/18/18 16:00 98.3 88 20 134/83 (100) 98 08/18/18 14:09 127/80 08/18/18 11:48 98.6 81 20 127/80 (96) 99 Intake and Output 08/18/18 08/19/18 19:00 07:00 Intake Total 400 ml 360 ml Balance 400 ml 360 ml Intake Oral 400 ml Other 360 ml # Voids 6 2 # Bowel Movements 1 Height (Feet): 5 Height (Inches): 3.00 Weight (Pounds): 150 Objective GENERAL: Alert, awake, and oriented x3. NECK: Range of motion is full in all directions. LUNGS: Clear. HEART: Regular. ABDOMEN: Soft Nontender. EXTREMITIES: No cyanosis. No clubbing. No edema. Tal Hewitt Aug 19, 2018 09:09
[2018-08-19] MEDS ORDERED: AMLODIPINE BESYL5 MG ORAL (09:18)
[2018-08-19] MEDS ORDERED: ASPIRIN325 MG ORAL (09:19)
[2018-08-19] MEDS ORDERED: ATORVASTATIN CA40 MG ORAL (09:20)
[2018-08-19] MEDS ORDERED: HYDRALAZINE HCL50 MG ORAL (09:21)
[2018-08-19] MEDS ORDERED: METHOCARBAMOL750 MG ORAL (09:22)
[2018-08-19] MEDS ORDERED: METOPROLOL TART50 M1 ORAL (09:24)
[2018-08-19] MEDS ORDERED: MORPHINE SULFAT15 MG PO (09:28)
--- NOTE | 2018-08-19 11:13 | NUR ---
NURSE NOTES: Pt informed of discharge by case managment. CM further informed pt that her appeal to continue care was denied and there is no placement into a SNF. Pt is to be discharged home by noon. Pt states that she does not have a ride. RN attempted to contact next of kin on file. Phone rang 10 times, no answer, no VM. RN offered pt taxi voucher, pt declined stating she does not have keys to her house. Charge nurse made aware.
--- NOTE | 2018-08-19 11:20 | NUR ---
Pt informed of discharge by case management. SHAR Patterson further informed pt that her appeal from medicare to continue care was denied and there is no placement into a SNF. Pt is to be discharged home by noon.
[2018-08-19 12:00] VITALS: BP 153/93
--- NOTE | 2018-08-19 14:00 | NUR ---
NURSE NOTES: Pt discharged in stable condition. No acute distress or SOB. IV and arm band removed. Belongings accounted for with pt. Pt stated she could not find her pants. RN assisted pt in search and they could not be found. RN provided pt with pants for discharge and informed charge nurse. Pt refused to sign belongings checklist and discharge packet. Pt accompanied by on discharge.
--- NOTE | 2018-08-19 14:04 | Pulmonology Progress Note ---
Assessment/Plan Problems: (1) Intractable back pain (2) Benzodiazepine dependence (3) Chronic back pain (4) HTN (hypertension) (5) Anxiety (6) Opioid dependence Assessment/Plan comfortable wants to go to [facility] rehab. less pain more relaxed monitor BP check electrolytes Anxiolytics prn dvt prophylaxis. Subjective ROS Limited/Unobtainable: No Constitutional: Reports: no symptoms HEENT: Repors: no symptoms Allergies: Coded Allergies: MORPHINE (Verified Allergy, Mild, 04/14/18) per pt only slight itchness and resolved by benadryl. toleated dilaudid. CEFAZOLIN (Verified Allergy, Unknown, 04/15/18) IRON (Verified Allergy, Unknown, Rash, 08/09/17) had nausea, vomiting and rashes METHADONE (Verified Allergy, Unknown, 06/04/17) PENICILLINS (Verified Allergy, Unknown, 04/15/18) PREGABALIN (Verified Allergy, Unknown, 06/04/17) Objective Last 24 Hour Vital Signs Date Time Temp Pulse Resp B/P (MAP) Pulse Ox O2 Delivery O2 Flow Rate FiO2 08/19/18 12:00 98.5 88 18 153/93 (113) 100 08/19/18 10:27 98.3 08/19/18 09:41 98.3 08/19/18 09:00 Room Air 08/19/18 08:59 113/76 08/19/18 08:58 84 113/76 08/19/18 08:58 84 113/76 08/19/18 08:00 98.3 84 18 113/76 (88) 98 08/19/18 06:54 135/82 08/19/18 04:00 97.9 98 18 137/88 (104) 96 08/19/18 00:00 98.4 74 18 130/84 (99) 97 08/18/18 21:23 120/82 08/18/18 21:00 Room Air 08/18/18 20:16 82 112/73 08/18/18 20:00 98.1 82 18 112/73 (86) 97 08/18/18 16:00 98.3 88 20 134/83 (100) 98 08/18/18 14:09 127/80 Intake and Output 08/18/18 08/19/18 19:00 07:00 Intake Total 400 ml 360 ml Balance 400 ml 360 ml Intake Oral 400 ml Other 360 ml # Voids 6 2 # Bowel Movements 1 Objective General Appearance: WD/WN Lines, tubes and drains: peripheral HEENT: normocephalic, anicteric Neck: non-tender, normal alignment Respiratory/Chest: chest wall non-tender, lungs clear Breasts: no masses Cardiovascular/Chest: normal peripheral pulses Abdomen: normal bowel sounds Genitourinary/Rectal: normal genital Current Medications Medications (Trade) Dose Ordered Sig/Danni Route PRN Reason Start Time Stop Time Status Last Admin Dose Admin Amitriptyline HCl (Elavil) 25 mg BEDTIME ORAL 08/10/18 22:15 09/09/18 22:14 08/18/18 20:18 Amlodipine Besylate (Norvasc) 5 mg DAILY ORAL 08/15/18 09:00 09/10/18 08:59 08/19/18 08:58 Aspirin (ASA) 325 mg DAILY ORAL 08/12/18 09:00 09/11/18 08:59 08/19/18 08:58 Atorvastatin Calcium (Lipitor) 40 mg BEDTIME ORAL 08/11/18 21:00 09/10/18 20:59 08/18/18 20:18 Carisoprodol (Soma) 350 mg THREE TIMES A DAY ORAL 08/14/18 09:00 09/13/18 08:59 08/19/18 08:57 Chlorhexidine Gluconate (Margot-Hex 2%) 1 applic DAILY@2000 TOPIC 08/12/18 20:00 09/11/18 19:59 08/18/18 20:18 Diphenhydramine HCl (Benadryl) 25 mg Q6H PRN IVP Itching 08/11/18 12:30 09/10/18 12:29 08/19/18 05:07 Duloxetine HCl (Cymbalta) 30 mg DAILY ORAL 08/11/18 09:00 09/10/18 08:59 08/19/18 08:58 Folic Acid (Folate) 2 mg DAILY ORAL 08/13/18 09:00 09/12/18 08:59 08/19/18 08:59 Gabapentin (Neurontin) 300 mg THREE TIMES A DAY ORAL 08/11/18 09:00 09/10/18 08:59 08/19/18 08:57 Hydralazine HCl (Apresoline) 50 mg EVERY 8 HOURS ORAL 08/12/18 22:00 09/10/18 00:00 08/19/18 06:54 Hydromorphone HCl (Dilaudid) 2 mg Q3H PRN IVP Severe Pain (Pain Scale 7-10) 08/17/18 10:30 08/24/18 10:29 08/19/18 09:11 Hydromorphone HCl (Dilaudid) 4 mg Q4H PRN ORAL severe break through pain 08/17/18 09:12 08/24/18 09:11 Lisinopril (Prinivil) 20 mg DAILY ORAL 08/15/18 09:00 09/10/18 08:59 08/18/18 08:57 Lorazepam (Ativan 2mg/ml 1ml) 0.5 mg Q4H PRN IV For Anxiety 08/19/18 02:45 08/26/18 02:44 08/19/18 02:49 Methocarbamol (Robaxin) 750 mg QID ORAL 08/11/18 13:00 09/10/18 12:59 08/19/18 08:58 Metoprolol Tartrate (Lopressor) 50 mg Q12HR ORAL 08/11/18 21:00 09/10/18 20:59 08/19/18 08:58 Morphine Sulfate (MS Contin) 30 mg Q8HR ORAL 08/17/18 14:00 08/24/18 13:59 08/19/18 06:56 Pantoprazole (Protonix) 40 mg DAILY ORAL 08/11/18 09:00 09/10/18 08:59 08/19/18 08:58 Ropinirole HCl (Requip) 0.5 mg THREE TIMES A DAY ORAL 08/11/18 09:00 09/10/18 08:59 08/19/18 08:58 Adam Tom MD Aug 19, 2018 14:04
--- NOTE | 2018-08-19 15:09 | General Progress Note ---
Assessment/Plan Assessment/Plan # Anemia of iron deficiency rule out gi bleed, ferritin is low, toelrated iv iron well thus far. without reaction --> Anemia workup has been ordered, rule out gi bleed, cea is 2.8 --> No evidence of hemolysis is noted, peripheral smear has been reviewed. --> Hgb goal >7. Transfuse prn. --> Medications have been reviewed --> evaluate with Gi team prn ==> hgb 11-->9.6-->9.5 --> transfuse if hgb is < 7 (will trend CBC daily) --> TOLERATED IV iron well, continue total 5 days # ANemia due to folic acid def --> ON folic acid 2mg po daily --> recommend as outpatient to eat leafy vegetables # HTn on variety of anti hypertensives --> per cards/renal # HypoKalemia --> K has been repleted # Benzodiazepine dependence # Chronic back pain # Anxiety and appears to be chronic The timing of this note does not necessarily reflect the time of the patient was seen. Greatly appreciate consultation! Subjective Constitutional: Denies: no symptoms, chills, diaphoresis, fever, malaise, weakness, other HEENT: Denies: no symptoms, eye pain, blurred vision, tearing, double vision, ear pain, ear discharge, nose pain, nose congestion, throat pain, throat swelling, mouth pain, mouth swelling, other Cardiovascular: Denies: no symptoms, chest pain, edema, irregular heart rate, lightheadedness, palpitations, syncope, other Respiratory: Denies: no symptoms, cough, orthopnea, shortness of breath, SOB with excertion, SOB at rest, sputum, stridor, wheezing, other Gastrointestinal/Abdominal: Denies: no symptoms, abdomen distended, abdominal pain, black stools, tarry stools, blood in stool, constipated, diarrhea, difficulty swallowing, nausea, poor appetite, poor fluid intake, rectal bleeding , vomiting, other Genitourinary: Denies: no symptoms, burning, discharge, frequency, flank pain, hematuria, incontinence, pain, urgency, other Neurologic/Psychiatric: Denies: no symptoms, anxiety, depressed, emotional problems, headache, numbness, paresthesia, pre-existing deficit, seizure, tingling, tremors, weakness, other Endocrine: Denies: no symptoms, excessive sweating, flushing, intolerance to cold, intolerance to heat, increased hunger, increased thirst, increased urine, unexplained weight gain, unexplained weight loss, other Hematologic/Lymphatic: Denies: no symptoms, anemia, easy bleeding, easy bruising, other Allergies: Coded Allergies: MORPHINE (Verified Allergy, Mild, 04/14/18) per pt only slight itchness and resolved by benadryl. toleated dilaudid. CEFAZOLIN (Verified Allergy, Unknown, 04/15/18) IRON (Verified Allergy, Unknown, Rash, 08/09/17) had nausea, vomiting and rashes METHADONE (Verified Allergy, Unknown, 06/04/17) PENICILLINS (Verified Allergy, Unknown, 04/15/18) PREGABALIN (Verified Allergy, Unknown, 06/04/17) Subjective 08/14: hgb is improved, has received iv iron and tolerated treatemnt well 08/15: hgb is 9.6, no bleeding, clearance for dc today 08/16: a+o x4, no fevers or chills noted, no bleeding 08/17: wants to go to rehab [facility], no fevers or chills 08/18: labs pending again, no fevers, hgb 10 approx 08/19: no events noted overnight, wants to go to rehab [facility] Objective Last 24 Hour Vital Signs Date Time Temp Pulse Resp B/P (MAP) Pulse Ox O2 Delivery O2 Flow Rate FiO2 08/19/18 12:00 98.5 88 18 153/93 (113) 100 08/19/18 10:27 98.3 08/19/18 09:41 98.3 08/19/18 09:00 Room Air 08/19/18 08:59 113/76 08/19/18 08:58 84 113/76 08/19/18 08:58 84 113/76 08/19/18 08:00 98.3 84 18 113/76 (88) 98 08/19/18 06:54 135/82 08/19/18 04:00 97.9 98 18 137/88 (104) 96 08/19/18 00:00 98.4 74 18 130/84 (99) 97 08/18/18 21:23 120/82 08/18/18 21:00 Room Air 08/18/18 20:16 82 112/73 08/18/18 20:00 98.1 82 18 112/73 (86) 97 08/18/18 16:00 98.3 88 20 134/83 (100) 98 Intake and Output 08/18/18 08/19/18 19:00 07:00 Intake Total 400 ml 360 ml Balance 400 ml 360 ml Intake Oral 400 ml Other 360 ml # Voids 6 2 # Bowel Movements 1 Height (Feet): 5 Height (Inches): 3.00 Weight (Pounds): 150 Objective General Appearance: WD/WN Lines, tubes and drains: peripheral HEENT: normocephalic, anicteric Neck: non-tender, normal alignment Respiratory/Chest: chest wall non-tender, lungs clear Breasts: no masses Cardiovascular/Chest: normal peripheral pulses Abdomen: normal bowel sounds Genitourinary/Rectal: normal genital exam Extremities: normal range of motion Aroldo Odom MD Aug 19, 2018 15:08
--- NOTE | 2018-08-19 17:37 | Nephrology Progress Note ---
Assessment/Plan Problem List: (1) HTN (hypertension) (2) Opioid dependence (3) Anemia (4) Hypokalemia Assessment HTN on variety of anti hypertensives HypoKalemia Low Iron Anemia Low folate multi drug allergies Plan BP meds adjustment and parameters states Iron Allergy k supplement given per consultants ? Dc Subjective ROS Limited/Unobtainable: No Interval Events/Complaints seen at 10 am Constitutional: Reports: malaise Objective Objective Last 24 Hour Vital Signs Date Time Temp Pulse Resp B/P (MAP) Pulse Ox O2 Delivery O2 Flow Rate FiO2 08/19/18 12:00 98.5 88 18 153/93 (113) 100 08/19/18 10:27 98.3 08/19/18 09:41 98.3 08/19/18 09:00 Room Air 08/19/18 08:59 113/76 08/19/18 08:58 84 113/76 08/19/18 08:58 84 113/76 08/19/18 08:00 98.3 84 18 113/76 (88) 98 08/19/18 06:54 135/82 08/19/18 04:00 97.9 98 18 137/88 (104) 96 08/19/18 00:00 98.4 74 18 130/84 (99) 97 08/18/18 21:23 120/82 08/18/18 21:00 Room Air 08/18/18 20:16 82 112/73 08/18/18 20:00 98.1 82 18 112/73 (86) 97 Intake and Output 08/18/18 08/19/18 19:00 07:00 Intake Total 400 ml 360 ml Balance 400 ml 360 ml Intake Oral 400 ml Other 360 ml # Voids 6 2 # Bowel Movements 1 Height (Feet): 5 Height (Inches): 3.00 Weight (Pounds): 150 Objective no change Nelson Hawkins MD Aug 19, 2018 17:37
--- NOTE | 2018-08-19 23:00 | Progress Note ---
DATE: 08/19/2018 SUBJECTIVE: This is a 53-year-old female patient. She has intractable back pain, which is causing a lot of anxiety and depression because of her medical complications and back pain. MENTAL STATUS EXAMINATION: This is a 53-year-old female patient. Appearance is disheveled. Attitude, irritable and agitated. Intellect poor. Mood, depressed and anxious. Motor activity, psychomotor agitation. Attention span is poor. Orientation x2. Speech is normal volume. Thought process, linear and goal directed. Denies suicidal or homicidal thoughts of ideation. Attention is fair. DIAGNOSIS: Major depressive disorder, mild, recurrent, without psychotic features. PLAN: Treat her with Cymbalta 30 mg a day and Neurontin 300 mg three times a day. Provided with 20 minutes of reality-based supportive psychotherapy. Chart reviewed and discussed with staff. Seen and assessed in her room. A 20 minutes of supportive therapy was provided to help her identify her automatic negative thoughts and help her convert those negative thoughts to more positive thoughts to reduce depression and anxiety, which was provided to help involve in multiple problems that maintain her behavior therapeutic pattern. Chart reviewed and discussed with nursing staff. Amanda Crews M.D. DR: SANDRA JOB#: [id number] CC:
--- NOTE | 2018-08-22 10:46 | Discharge Summary ---
Discharge Summary Discharge Summary _ DATE OF ADMISSION: 08/10/2018 DATE OF DISCHARGE: 08/19/2018 DISCHARGED BY: Dr Magallon REASON FOR ADMISSION: 53 years old female with past medical history of opioid and benzodiazepine dependency, anemia, hypertension, coronary artery disease with stents placement , uterine e fibroids, status post hysterectomy, appendicitis, status post appendectomy, cauda equina syndrome, status post spinal fusion , right eye blindness , presented with complaint of severe low back pain 10 out of 10. Patient reported chronic pain , but this was much more severe. Patient was very anxious. Pain was getting progressively worse and was not controlled with the current medications at home. Patient denied nausea, vomiting, fever, chills. Patient denied night sweats. Patient denied new trauma or falls. Patient denied urine or bowel incontinence. Patient denied urinary retention. Patient reported that any movement exacerbated her low back pain. Upon evaluation vital signs were stable. Laboratory workup showed no leukocytosis, hemoglobin 10, hematocrit 31.2. Potassium 3.0. BUN 15, creatinine 0.6. Glucose 85. Albumin 3.3. Urinalysis revealed no evidence of UTI. In the emergency department patient was medicated with Dilaudid and Ativan. Potassium was replaced. Patient subsequently admitted for further management. CONSULTANTS: neurologist Dr. Hogan pulmonary Dr. Tom successfactors consultant Dr. Hawkins roving hand/oncologist Dr. Odom psychiatrist Dr. Crews pain specialist Dr. Singh HOSPITAL COURSE: Patient admitted to medical surgical floor. Pain specialist consulted. Pain management provided as per pain specialist recommendation. Patient was working as a physical therapist. Neurologist seen and evaluated patient. EEG was recommended, but patient declined it. Pulse oximetry was stable on room air. No evidence of respiratory distress. DVT prophylaxis provided. Blood pressure was closely monitored. Antihypertensive regimen was optimized as per successfactors consultant to keep blood pressure under control. Renal parameters and electrolytes were closely monitored. Electrolytes corrected as needed. Nephrotoxins were avoided. Hemoglobin and hematocrit were closely monitored with goal to keep hemoglobin above 7. [employer] followed. Anemia workup revealed evidence of iron deficiency anemia. Ferritin 222. Patient was on IV Venofer while in the hospital. Prior to discharge hemoglobin 9.5 hematocrit 29.9. Noted low folic acid. Patient started on folic acid supplement. Prior to discharge patient was educated on diet high in folic acid. Psychiatrist followed and diagnosed patient with major depressive disorder, mild , recurrent without psychotic features. Psychiatric medication regimen was optimized as per psychiatrist. Supportive therapy provided. Bowel regimen instituted. Pain was controlled. Patient clinically stabilized and was ready for discharge home. Patient appealed her initial discharge , but lost her appeal. Patient was stable for discharge home. FINAL DIAGNOSES: Intractable low back pain Anxiety Hypertension Anemia of iron deficiency Anemia due to folic acid deficiency Hypokalemia Lumbar DDD Lumbar spondylosis Lumbar herniated disc Lumbar radiculopathy History of lumbar fusion revision. Benzodiazepine dependency Opioid dependency DISCHARGE MEDICATIONS: See Medication Reconciliation list. DISCHARGE INSTRUCTIONS: Patient was discharged home . Follow up with primary care provider in one week. I have been assigned to dictate discharge summary for this account. I was not involved in the patient's management. Ness Junior NP Aug 22, 2018 10:46
== END 2018-08-19 14:10 | disposition home or self-care (01) | DRG 552 ==
LOC: EMR 21:11 → 3E 21:13 → EDBEDREQ 21:19 → 4E 08-15 17:04
DX: M51.16 Intervertebral disc disorders with radiculopathy, lumbar region (principal); F11.20 Opioid dependence, uncomplicated; F13.20 Sedative, hypnotic or anxiolytic dependence, uncomplicated; G83.4 Cauda equina syndrome; F33.0 Major depressive disorder, recurrent, mild; M47.896 Other spondylosis, lumbar region; D50.9 Iron deficiency anemia, unspecified; Z87.891 Personal history of nicotine dependence; I10 Essential (primary) hypertension; I25.10 Atherosclerotic heart disease of native coronary artery without angina pectoris; Z95.5 Presence of coronary angioplasty implant and graft; Z88.6 Allergy status to analgesic agent; Z88.0 Allergy status to penicillin; Z88.8 Allergy status to other drugs, medicaments and biological substances; F41.1 Generalized anxiety disorder; G89.29 Other chronic pain; Z98.1 Arthrodesis status; E87.6 Hypokalemia
CPT/HCPCS: 36415; 80048; 80053; 80061; 80076; 81003; 82378; 82607; 82728; 82746; 83540; 83550; 83735; 83880; 84100; 84443; 84550; 85007; 85025; 86140; 86300; 86304; 87081; 96374; 96375; 99285; J8499

== ENCOUNTER 2018-12-16 10:05 | Emergency (ER) | payer MEDICARE, MEDICAID ==
[~2018-12-16] VITALS: Ht 160 cm; Wt 68.0 kg
[~2018-12-16 10:05] MED LIST changes: +AMLODIPINE BESYL5 MG ORAL; +ASPIRIN325 MG ORAL; +ATORVASTATIN CA40 MG ORAL; +HYDRALAZINE HCL50 MG ORAL; +LOSARTAN POTAS100 MG ORAL; +METOPROLOL TART50 M1 ORAL; +MORPHINE SULFAT15 MG PO
--- NOTE | 2018-12-16 10:22 | NUR ---
ED Nurse Note: PT. AAOX4. AMBULATROY. BROUGHT IN TO ER BY DUE TO BLEEDING ON LEFT EAR. NO BLEEDING NOTED IN TRIAGE. PT STATES THAT SHE FOUND BLOOD ON HER PILLOW AND C/O NUMBNESS PAIN ON LEFT SIDED OF HER FACE.
[2018-12-16 10:47] VITALS: BP 131/76
[2018-12-16] MEDS ORDERED: Cortisporin OTIC Susp 10ml BOTH EARS ONE (11:00)
[2018-12-16] MEDS ORDERED: Cortisporin OTIC Susp 10ml ONE (11:15)
--- NOTE | 2018-12-16 11:56 | Emergency Room Report ---
History of Present Illness General Chief Complaint: General Complaint Source: Patient, Significant Other Present Illness HPI Patient noticed blood on her pillow this morning. She realizes it is coming from her left ear. She has some tenderness there. She deals with chronic pain in this tenderness is less than muscle spasms that she lives with and takes morphine and Dilaudid on a regular basis. Pain in her back is rated 8/10. The discomfort in her ears is rated 5/10 with fullness and aching. She denies any change in her hearing. There have been no fevers or chills. She denies sore throat. She is never had this problem before. In the past she was taking Coumadin. She is currently taking high-dose aspirin. This is to treat arachnoiditis. 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 She has chronic pain in her back. She also has muscle spasms there. She is taking medication for this. She had caudal equina syndrome and has had spinal fusion. Allergies: Coded Allergies: MORPHINE (Verified Allergy, Mild, 12/16/18) per pt only slight itchness and resolved by benadryl. toleated dilaudid. CEFAZOLIN (Verified Allergy, Unknown, 12/16/18) IRON (Verified Allergy, Unknown, Rash, 12/16/18) had nausea, vomiting and rashes METHADONE (Verified Allergy, Unknown, 12/16/18) PENICILLINS (Verified Allergy, Unknown, 12/16/18) PREGABALIN (Verified Allergy, Unknown, 12/16/18) Patient History Past Medical History: see triage record Past Surgical History: other - to spinal fusion surgeries, enucleation right eye, hysterectomy, bowel resection Social History: Reports: smoking Social History Narrative With significant other Reviewed Nursing Documentation: PMH: Agreed; PSxH: Agreed Nursing Documentation-PMH Past Medical History: No History, Except For Hx Cardiac Problems: Yes Hx Hypertension: No Hx Pacemaker: No Hx Asthma: No Hx COPD: No Hx Diabetes: No Hx Cancer: No Hx Gastrointestinal Problems: No Hx Dialysis: No Hx Cerebrovascular Accident: No Hx Seizures: No Hx Spinal Cord Injury: Yes Hx Numbness: Yes Hx Neurologic Surgery: Yes - 03/2018 Spinal surgery Review of Systems All Other Systems: negative except mentioned in HPI Physical Exam Vital Signs Date Time Temp Pulse Resp B/P (MAP) Pulse Ox O2 Delivery O2 Flow Rate FiO2 12/16/18 10:22 98.8 97 16 131/76 (94) 96 Room Air Sp02 EP Interpretation: reviewed, normal General Appearance: well appearing, no apparent distress, GCS 15, other - Episodic muscle spasms Head: normocephalic, atraumatic, other - No mastoid tenderness Eyes: right eye other - Left side; left eye normal inspection, left eye PERRL, left eye EOMI ENT: normal pharynx, normal voice, moist mucus membranes, other - Bilateral canal swelling with blood in the canals with mild pinna tenderness. Tympanic membranes normal Neck: supple, tender - Muscular Respiratory: lungs clear, normal breath sounds Cardiovascular #1: regular rate, rhythm Cardiovascular #2: 2+ radial (R) Gastrointestinal: normal inspection Musculoskeletal: other - Muscle spasms and tenderness back Neurologic: alert, oriented x3, grossly normal - Except for last eye right Psychiatric: mood/affect normal Skin: normal color Medical Decision Making Diagnostic Impression: Primary Impression: Bilateral otitis externa Qualified Codes: H60.313 - Diffuse otitis externa, bilateral ER Course Patient presents with bloody discharge from left ear however found to have bilateral canal swelling and blood in both canals. No evidence of any trauma known. Tympanic membranes are normal and hearing is normal. Exam is consistent with bilateral otitis externa. Ear guero and Cortisporin suspension is indicated. Patient is given a dose of analgesics here. He works inserted by [employer] and antibiotics and still. Patient somewhat improved. Discussed treatment plan and showed significant other how to instill eardrops. Discussed the importance of following up with nuclear weapons custodian. Patient more comfortable and eating lunch. Patient stable for outpatient observation and treatment. Last Vital Signs Date Time Temp Pulse Resp B/P (MAP) Pulse Ox O2 Delivery O2 Flow Rate FiO2 12/16/18 12:06 98.8 78 19 122/86 100 Room Air Status: improved Disposition: HOME, SELF-CARE Condition: Improved Referrals: Ernesto Magallon DO (PCP) Balbir Vazquez MD Dec 16, 2018 11:56
[2018-12-16 12:06] VITALS: BP 122/86
--- NOTE | 2018-12-16 12:07 | NUR ---
ER DISCHARGE NOTE: Patient is cleared to be discharged per ERMD, pt is aox4, on room air, with stable vital signs. pt was given dc and prescription instructions, pt was able to verbalize understanding, pt id band removed. pt is able to ambulate with steady gait. pt took all belongings.
== END 2018-12-16 12:07 | disposition home or self-care (01) ==
LOC: EMR 11:52
DX: H60.93 Unspecified otitis externa, bilateral (principal); Z88.0 Allergy status to penicillin; Z88.5 Allergy status to narcotic agent; Z88.8 Allergy status to other drugs, medicaments and biological substances
CPT/HCPCS: 99282

== ENCOUNTER 2019-01-19 15:18 | Emergency (ER) | payer MEDICARE, MEDICAID ==
[~2019-01-19] VITALS: Ht 160 cm; Wt 70.3 kg
[2019-01-19 15:47] VITALS: BP 147/85
--- NOTE | 2019-01-19 15:47 | NUR ---
ED Nurse Note: Patient brought in to ER by family member with WC from home due to reduced urine output for last 3 days and bilateral legs and ankles edema. Patient is alert and oriented x4 and chair bound. Skin clean and intact. Calm and cooperative. No acute distress noted at this moment. bilateral leg edema noted.
--- NOTE | 2019-01-19 16:18 | NUR ---
ED Nurse Note: x-ray at bedside.
--- NOTE | 2019-01-19 16:19 | NUR ---
ED Nurse Note: lab was notified about blood work.
--- NOTE | 2019-01-19 16:30 | Diagnostic Imaging Report ---
Indication: Chest pain Comparison: 01/13/2018 A single view chest radiograph was obtained. Findings: There is no change. Heart is borderline enlarged. There is a right chest port unchanged in position. Spinal simulation wire is noted in the midthoracic spine. IMPRESSION: No acute disease
--- NOTE | 2019-01-19 16:30 | NUR ---
ED Nurse Note: US initiated at bedside.
--- NOTE | 2019-01-19 17:10 | NUR ---
ED Nurse Note: US done at bedside.
--- NOTE | 2019-01-19 17:20 | NUR ---
ED Nurse Note: FC 16Fr inserted. 400 cc of urine came out.
[2019-01-19] MEDS ORDERED: HYDROmorphone 2 MG in NS 55 ML IVPB ONE (17:45)
[2019-01-19 17:48] LABS: APPEARANCE,URINE SLIGHTLY CLOUDY; BILIRUBIN, URINE NEGATIVE (NEGATIVE); COLOR,URINE PALE YELLOW; GLUCOSE, URINE (UA) NEGATIVE (NEGATIVE); KETONES,URINE NEGATIVE (NEGATIVE); LEUKOCYTE ESTERASE ,URINE 2+ (NEGATIVE); NITRITE,URINE POSITIVE (NEGATIVE); PH,URINE 7 (4.5-8.0); PROTEIN,URINE NEGATIVE (NEGATIVE); UROBILINOGEN,URINE NORMAL MG/DL (0.0-1.0)
[2019-01-19 17:53] LABS: BASOPHILS % (AUTO) 1.5 % (0.0-2.0); HEMATOCRIT 32.4 % (37.0-47.0); HEMOGLOBIN 11.2 G/DL (12.0-16.0); MEAN CORPUSCULAR VOLUME 87 FL (80-99); NEUTROPHILS % (AUTO) 71.6 % (45.0-75.0); PLATELET COUNT 263 K/UL (150-450); RED BLOOD COUNT 3.72 M/UL (4.20-5.40); RED CELL DISTRIBUTION WIDTH 12.7 % (11.6-14.8); WHITE BLOOD COUNT 7.5 K/UL (4.8-10.8)
[2019-01-19 18:06] LABS: INR 0.9 (0.9-1.1)
[2019-01-19 18:11] LABS: ANION GAP 8 mmol/L (5-15); BLOOD UREA NITROGEN 8 mg/dL (7-18); CALCIUM 9.3 MG/DL (8.5-10.1); CARBON DIOXIDE 29 MMOL/L (21-32); CHLORIDE 107 MMOL/L (98-107); CREATININE 0.6 MG/DL (0.55-1.30); SODIUM 144 MMOL/L (136-145)
[2019-01-19 18:17] LABS: ALANINE AMINOTRANSFERASE 21 U/L (12-78); ALBUMIN 3.3 G/DL (3.4-5.0); ALBUMIN/GLOBULIN RATIO 0.8 (1.0-2.7); ALKALINE PHOSPHATASE 180 U/L (46-116); ASPARTATE AMINO TRANSFERASE 21 U/L (15-37); BILIRUBIN,TOTAL 0.3 MG/DL (0.2-1.0)
--- NOTE | 2019-01-19 18:53 | NUR ---
ED Nurse Note: ERPA at bedside speaking to pt and family.
--- NOTE | 2019-01-19 18:57 | Emergency Room Report ---
History of Present Illness General Chief Complaint: Female Urogenital Problems Present Illness HPI 53-year-old female with history of cauda equina syndrome, urinary retention, and chronic back injury and pain here complaining of 2 days of swelling and pain in her right foot. Patient reports that her urinary incontinence has been getting worse in the past couple days. Denies urinary frequency however complains of dysuria. Denies chest pain, shortness of breath, palpitation, abdominal pain, nausea vomiting. Patient also has a chest port placed in which has remained intact and denies any pain at the site of port. Patient is wheelchair-bound. Denies calf pain or tenderness. Patient is on daily dose of hydromorphone at home and under the care of pain management. Denies any recent fall or injury. Denies fever and chills. Edema noted in the right foot with faint pedal pulse in the left side. No calf tenderness noted. Slightly warm to touch. Allergies: Coded Allergies: MORPHINE (Verified Allergy, Mild, 12/16/18) per pt only slight itchness and resolved by benadryl. toleated dilaudid. CEFAZOLIN (Verified Allergy, Unknown, 12/16/18) IRON (Verified Allergy, Unknown, Rash, 12/16/18) had nausea, vomiting and rashes METHADONE (Verified Allergy, Unknown, 12/16/18) PENICILLINS (Verified Allergy, Unknown, 12/16/18) PREGABALIN (Verified Allergy, Unknown, 12/16/18) Patient History Past Medical History: see triage record Past Surgical History: unable to obtain Pertinent Family History: none Now: No Immunizations: UTD Reviewed Nursing Documentation: PMH: Agreed; PSxH: Agreed Nursing Documentation-PMH Hx Cardiac Problems: Yes Hx Hypertension: No Hx Pacemaker: No Hx Asthma: No Hx COPD: No Hx Diabetes: No Hx Cancer: No Hx Gastrointestinal Problems: No Hx Dialysis: No Hx Cerebrovascular Accident: No - 2 stents in August 2018 Hx Seizures: No Hx Spinal Cord Injury: Yes Hx Numbness: Yes Hx Neurologic Surgery: Yes - 2009, 03/2018 Spinal surgery Review of Systems All Other Systems: negative except mentioned in HPI Physical Exam Vital Signs Date Time Temp Pulse Resp B/P (MAP) Pulse Ox O2 Delivery O2 Flow Rate FiO2 01/19/19 15:34 98.4 89 18 147/85 (105) 98 Room Air Sp02 EP Interpretation: reviewed, normal General Appearance: no apparent distress, alert, GCS 15, non-toxic Head: normocephalic, atraumatic Eyes: bilateral eye normal inspection, bilateral eye PERRL ENT: hearing grossly normal, normal pharynx, no angioedema, normal voice Neck: full range of motion, supple/symm/no masses Respiratory: chest non-tender, lungs clear, normal breath sounds, speaking full sentences Cardiovascular #1: regular rate, rhythm, no edema Cardiovascular #2: 1+ dorsalis pedis (R); 2+ dorsalis pedis (L) Gastrointestinal: normal bowel sounds, non tender, soft, non-distended, no guarding, no rebound Rectal: deferred Genitourinary: normal inspection, no CVA tenderness Musculoskeletal: back normal, gait/station normal, normal range of motion, non- tender, calf tenderness Neurologic: alert, oriented x3, responsive, motor strength/tone normal, sensory intact, speech normal Psychiatric: judgement/insight normal, memory normal, mood/affect normal, no suicidal/homicidal ideation Skin: no rash Lymphatic: no adenopathy Medical Decision Making PA Attestation All my diagnosis and treatment plans were reviewed ad discussed with my supervising physician Dr. Santiago Diagnostic Impression: Primary Impression: UTI (urinary tract infection) Additional Impression: Edema of foot ER Course 53-year-old female with history of cauda equina syndrome, urinary retention, and chronic back injury and pain here complaining of 2 days of swelling and pain in her right foot. Patient reports that her urinary incontinence has been getting worse in the past couple days. Denies urinary frequency however complains of dysuria. Denies chest pain, shortness of breath, palpitation, abdominal pain, nausea vomiting. Patient also has a chest port placed in which has remained intact and denies any pain at the site of port. Patient is wheelchair-bound. Denies calf pain or tenderness. Patient is on daily dose of hydromorphone at home and under the care of pain management. Denies any recent fall or injury. Denies fever and chills. Edema noted in the right foot with faint pedal pulse in the left side. No calf tenderness noted. Slightly warm to touch. Ddx considered but are not limited to: UTI, pyelonephritis, urinary incontinence , prolapsed bladder, DVT, cellulitis, edema of right foot, PAD Vital signs: are WNL, pt. is afebrile H&PE are most consistent with: Unspecified edema right foot, UTI ORDERS: UA, CBC, CMP, venous duplex, arterial duplex, Macrobid, ibuprofen ED INTERVENTIONS: Dilaudid DISCHARGE: At this time pt. is stable for d/c to home. Will provide printed patient care instructions, and any necessary prescriptions. Care plan and follow up instructions have been discussed with the patient prior to discharge. I advised the patient to follow-up with her primary care provider Dr. Ernesto Magallon, patient was now sent by primary care and patient stable at time of discharge. At this time no indication for hospitalization and further assessment of the emergency room. Patient agrees with the above course of treatment. I advised the patient to follow-up with pain management regarding her pain medication. Story catheter was inserted successfully urine specimen was collected and Story catheter was exerted successfully without any complications. Chest X-Ray Diagnostic Results Chest X-Ray Diagnostic Results : Chest X-Ray Ordered: Yes # of Views/Limited/Complete: 1 View Indication: Other EP Interpretation: Yes PA Xray: Interpretation reviewed, by supervising MD, and agrees with findings. Interpretation: no consolidation, no effusion, no pneumothorax Impression: No acute disease Electronically Signed by: Blu NEAL Scribe Text Port is in place and intact. CT/MRI/US Diagnostic Results CT/MRI/US Diagnostic Results #1: Imaging Test Ordered: Venous duplex right lower extremity Impression Negative for DVT CT/MRI/US Diagnostic Results #2: Imaging Test Ordered: Arterial duplex right lower extremity Impression Within normal limits Last Vital Signs Date Time Temp Pulse Resp B/P (MAP) Pulse Ox O2 Delivery O2 Flow Rate FiO2 01/19/19 18:17 98.4 01/19/19 15:47 71 18 147/85 98 Room Air Disposition: HOME, SELF-CARE Condition: Stable Scripts Ibuprofen* (MOTRIN*) 600 Mg Tablet 600 MG ORAL FOUR TIMES A DAY, #30 TAB 0 Refills Prov: Blu Bustillo 01/19/19 Nitrofurantoin Monohyd/M-Cryst* (MACROBID 100 MG*) 100 Mg Capsule 100 MG ORAL EVERY 12 HOURS for 7 Days, #14 CAP Prov: Blu Bustillo 01/19/19 Referrals: Ernesto Magallon DO (PCP) Patient Instructions: Edema, [id number], Urinary Tract Infection Additional Instructions: Take medication as I have follow-up with your primary care provider worsening symptoms return to the emergency room Blu Bustillo Jan 19, 2019 18:57
[2019-01-19] MEDS ORDERED: IBUPROFEN600 MG ORAL (18:59)
[2019-01-19] MEDS ORDERED: NITROFURANTOIN100 M2 ORAL (18:59)
[2019-01-19 19:10] VITALS: BP 135/77
--- NOTE | 2019-01-19 19:10 | NUR ---
ED Nurse Note: Pt cleared by health care Provider for discharge. DC instructions/prescription was given and explained to pt and verbalized understanding of teachings. All medical deviecs such as ID band, IV line, F/C removed. Pt is AAO x4, assisted by with pt's own WC and left with all personal belongings.
--- NOTE | 2019-01-20 09:49 | Diagnostic Imaging Report ---
Indication: Right leg pain and edema Technique: Grayscale and duplex images of the right lower extremity arteries Comparison: Findings: At the levels of the right common femoral artery, proximal mid and distal superficial femoral artery, arterial waveforms are biphasic with sharp systolic peaks. In the popliteal artery, waveforms are borderline monophasic but systolic peaks remain sharp at the ankle, the posterior tibial artery, anterior tibial artery and dorsalis pedis artery waveforms are monophasic but systolic peaks remain sharp. Impression: Monophasic distal ankle vessel waveforms with preserved sharp systolic peaks. This may indicate borderline significant stenosis at at or about the level of the knee joint No evidence of high-grade stenosis or occlusion demonstrated This agrees with the preliminary interpretation provided overnight by Dr. Ortega
--- NOTE | 2019-01-20 09:51 | Diagnostic Imaging Report ---
Indication: Right lower extremity pain Technique: Grayscale and duplex images of the right lower extremity veins Comparison: 04/15/2018 Findings: Grayscale and duplex images demonstrate no evidence of intraluminal thrombus. Normal phasic waveforms demonstrate normal augmentation response and no evidence of valvular insufficiency. Normal compressibility. Previously demonstrated chronic femoral vein thrombus is no longer evident Impression: Negative for evidence of right lower extremity deep venous thrombosis This agrees with the preliminary interpretation provided overnight by Dr. Ortega
--- NOTE | 2019-01-21 13:10 | Cardiology Report ---
APPROVED REPORT EKG Measurement Heart [id number] Normal sinus rhythm Nonspecific T wave abnormality Abnormal ECG
== END 2019-01-19 19:10 | disposition home or self-care (01) ==
LOC: EMR 16:30
DX: N39.0 Urinary tract infection, site not specified (principal); R60.0 Localized edema; Z88.8 Allergy status to other drugs, medicaments and biological substances; Z88.6 Allergy status to analgesic agent; Z88.1 Allergy status to other antibiotic agents; Z88.0 Allergy status to penicillin; G83.4 Cauda equina syndrome; Z99.3 Dependence on wheelchair
CPT/HCPCS: 36415; 51702; 71045; 80053; 80307; 81001; 85025; 85610; 85730; 86850; 86900; 86901; 87086; 87181; 93005; 93926; 93971; 96374; 99284; J1170